=== PATIENT | female | born 1965 | race Caucasian/White ===

== ENCOUNTER 2021-11-01 19:56 | Inpatient (IN) | payer MEDICARE, MEDICAID, SELFPAY ==
--- NOTE | 2021-11-01 | ECG_ITS ---
Test Reason : MED CLEARANCE Blood Pressure : / mmHG Vent. Rate : 064 BPM Atrial Rate : 064 BPM P-R Int : 124 ms QRS Dur : 094 ms QT Int : 416 ms P-R-T Axes : 055 075 058 degrees QTc Int : 429 ms Normal sinus rhythm Normal ECG No previous ECGs available Referred By: Michael Mcdonough Electronically Signed By:Scooter Rossi
--- NOTE | ~2021-11-01 | XR_ITS ---
EXAMINATION: XR CHEST CLINICAL INFORMATION: Wheezing. COMPARISON: None TECHNIQUE: 2 views of the chest were obtained. FINDINGS: Focal dense consolidation in the anterior lung base on lateral view which is likely within the lingula. No pleural effusion. No pulmonary vascular congestion. XR/XR chest 2V IMPRESSION: Focal dense consolidation in the anterior lung base on lateral view which is likely within the lingula
--- NOTE | ~2021-11-01 | CT_ITS ---
EXAMINATION: CT CHEST WITHOUT CONTRAST CLINICAL INFORMATION: Orthostatic hypotension. COMPARISON: Most recent chest radiograph dated 11/01/2021. TECHNIQUE: Multidetector volumetric CT imaging of the chest was done. Axial MIP volume rendering provided. Sagittal and coronal reformatted images were obtained. This CT examination was performed using dose optimization techniques as appropriate, variously including the following: *Automated exposure control *Adjustment of mA and/or kV according to patient size (this includes techniques or standardized protocols for targeted exams where dose is matched to indication/reason for exam; i.e. extremities or head) *Use of iterative reconstruction technique DLP: 185 mGy-cm FINDINGS: SENIOR BUYER PLANNER: Unremarkable. LUNGS: There are scattered, patchy reticulonodular airspace opacities with more dense consolidations within the left lingula and anterior inferior aspect of the right middle lobe. Additional scattered reticulonodular densities are seen within the posteromedial right lower lobe, posterior aspect of the left upper lobe, and central aspect of the left lower lobe. Findings are consistent with multifocal pneumonia and may be related to an infectious or inflammatory process. No large pulmonary mass. The central airways are patent. Left upper lobe 0.3 cm noncalcified nodule (axial image 150/558). Right upper lobe 0.3 cm noncalcified nodule (axial image 152/558). MEDIASTINUM: No cardiomegaly. No pericardial effusion. No thoracic aortic dilatation. No superior mediastinal or hilar lymphadenopathy. Unremarkable thyroid. PLEURA: There is no pleural effusion. No pleural mass or thickening. AXILLA: No lymphadenopathy. UPPER ABDOMEN: Partially visualized simple-appearing right renal cyst. Findings are not clinically significant, and no followup is recommended. Status post cholecystectomy. OSSEOUS STRUCTURES: Unremarkable. CT/CT chest wo con IMPRESSION: 1. Patchy bilateral airspace opacities, most confluent within the right middle lobe and left lingula. Findings are consistent with multifocal pneumonia and can be seen in the setting of an infectious or inflammatory process. 2. Noncalcified 0.37 bilateral upper lobe pulmonary nodules. According to the UPDATED 2017 Fleischner Society recommendations, the advised followup imaging for solid nodules < 6 mm is: LOW RISK PATIENT: No routine followup. HIGH RISK PATIENT: Optional CT at 12 months. 3. No lymphadenopathy. Fleischner guidelines were followed.
--- NOTE | 2021-11-01 20:04 | ED.PSYCH ---
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 Patient says she does not want to live anymore. She states she has been suicidal for the last 3 months. She plans to walk into the river and let it sweep her away. She is deathly afraid of all electronics including cell phones and watches, thinking that her ex-boyfriend is trying to bug her. She has not slept in over 24 hours. She is not eating well and has lost significant amount of weight in the last 1 year. She is back and forth from [place] and does not have any providers in this area. She has been compliant with her anxiety medication but did not take any yet today because she has been the clinic. She reports only drug use is marijuana use and it is infrequent. Denies EtOH. MD complaint: suicidal ideation, feels depressed and anxiety Onset (ago): month(s) (3) Duration: getting worse Relieving factors: none Exacerbating factors: none Context: significant life stressor Associated psychiatric symptoms: depression, suicidal ideation, racing thoughts and delusions Associated symptoms: headache and insomnia Treatments prior to arrival: placed on mental health hold If self harm: admits thoughts of self harm and has plan Details of plan: Walking to the [place] Related Data Home Medications Medication Instructions Recorded Confirmed amlodipine 5 mg tablet 1 tab PO DAILY 11/01/21 11/01/21 aspirin 81 mg chewable tablet 1 tab PO DAILY 11/01/21 11/01/21 baclofen 10 mg tablet 1 tab PO BID PRN 11/01/21 11/01/21 diazepam 5 mg tablet 5 mg PO DAILY 11/01/21 11/01/21 diazepam 5 mg tablet 10 mg PO BEDTIME 11/01/21 11/01/21 docusate sodium 100 mg capsule 1 cap PO BID PRN 11/01/21 11/01/21 duloxetine 60 mg capsule,delayed 1 cap PO DAILY 11/01/21 11/01/21 release fluticasone 250 mcg-salmeterol 50 1 inh PO BID 11/01/21 11/01/21 mcg/dose blistr powdr for inhalation (Advair Diskus) gabapentin 600 mg tablet 1 tab PO BID 11/01/21 11/01/21 pantoprazole 20 mg tablet,delayed 1 tab PO DAILY 11/01/21 11/01/21 release propranolol 20 mg tablet 1 tab PO TID 11/01/21 11/01/21 quetiapine 25 mg tablet 1 tab PO BID 11/01/21 11/01/21 Allergies Allergy/AdvReac Type Severity Reaction Status Date / Time albuterol AdvReac Palpitation Verified 11/01/21 20:16 s Review of Systems Review of Systems: Constitutional: No Fever, No Chills ENT/Mouth: No sore throat, No Rhinorrhea, No Swallowing Difficulty Eyes: No Eye Pain, No Swelling, No Redness Cardiovascular: No Chest Pain, No SOB, No Orthopnea, No Edema Respiratory: + Cough, No Sputum, + Wheezing, No dyspnea Gastrointestinal: No Nausea, No Vomiting, No Diarrhea, No abdominal Pain, No Hematochezia, No Melena Genitourinary: + Dysuria, No Urinary Frequency, No Hematuria, +Dark colored urine Musculoskeletal: No joint pain, No Myalgias Skin: No Skin Lesions, No rash Neuro: + Weakness, No Numbness, No Dizziness, + Headache Psych: + Anxiety/Panic, + Depression, +SI, No HI, No AH, No VH, +delusions, +insomnia Heme/Lymph: No Bruising, No Lymphadenopathy Endocrine: No Polyuria, No Polydipsia PMFSH Social History Social History Advance Directives: No Advance Directives Information Provided: No Physical Exam Vital Signs: Vital Signs: Last Vital Signs Temp 99 F 11/01/21 20:06 Pulse 74 11/01/21 20:06 Resp 19 11/01/21 20:06 BP 115/69 11/01/21 20:06 Pulse Ox 95 11/01/21 20:06 BMI result Body Mass Index 19.5 Appearance: Alert, frail anxious female wrapped in a blanket. Oriented X3. Tearful. Appears older than stated age. Eyes: Pupils equal, round and reactive to light. ENT: Pharynx normal. Neck: Normal inspection. Neck supple. CVS: Normal heart rate and rhythm. Pulses normal. Respiratory: No respiratory distress. Breath sounds with diffuse insp/exp wheezes throughout the right lung. Left lung coarse. Abdomen: Soft and nontender. +BS x4 Skin: Skin warm and dry. Normal skin color. Normal skin turgor. No rashes. Extremities: No lower extremity edema. Neuro/psych: Oriented X 3. No motor deficit. No sensory deficit. Anxious, tremoring at times. Makes eye contact, paranoid, delusional, poor insight and judgment. CN II-XII intact. Course Course Course Narrative: 56-year-old female with history of COPD, stiff person syndrome, PTSD, delusional disorder who presents to the ER for evaluation of worsening depression and suicidal thoughts for the last 3 months. She went to a [facility] clinic today with SI and plan, delusional, anxious, paranoid. She was placed on a Section 12 and inpatient bed search was initiated, she was sent to a gym see for further evaluation, medical clearance and monitoring. She is concerned she has a UTI, will check UA to rule out infection. On examination she has wheezes throughout her right lung, she reports these are chronic and she has no shortness of breath. She has COPD and takes Advair, she reports allergy to albuterol so will hold off on updraft for now. SpO2 95%. Will check CXR and COVID swab. Once medically cleared will require inpatient psychiatric care. Consultations Consultation #1: [facility] Discharge Plan Discharge Clinical Impression: Suicidal ideation, Acute paranoia, Delusional disorder, COPD (chronic obstructive pulmonary disease) Patient Disposition: Still a Patient Prescriptions: No Action quetiapine 25 mg tablet 1 tab PO BID 0RF fluticasone propion-salmeterol [Advair Diskus] 250-50 mcg/dose blister with device 1 inh PO BID 0RF gabapentin 600 mg tablet 1 tab PO BID 0RF amlodipine 5 mg tablet 1 tab PO DAILY 0RF pantoprazole 20 mg tablet,delayed release (DR/EC) 1 tab PO DAILY 0RF baclofen 10 mg tablet 1 tab PO BID PRN (Reason: Muscle Spasm) 0RF docusate sodium 100 mg capsule 1 cap PO BID PRN (Reason: constipation) 0RF aspirin 81 mg tablet,chewable 1 tab PO DAILY 0RF duloxetine 60 mg capsule,delayed release(DR/EC) 1 cap PO DAILY 0RF propranolol 20 mg tablet 1 tab PO TID 0RF diazepam 5 mg tablet 5 mg PO DAILY 0RF diazepam 5 mg tablet 10 mg PO BEDTIME 0RF
[2021-11-01 20:06] VITALS: BP 115/69; PULSE 74; RESP 19; TEMP 37.2; O2SAT 95; BMI 19.5
[2021-11-01] MEDS: LORazepam 1 MG TABLET 2 MG PO (20:43)
[2021-11-01 21:04] LABS: Appearance Urine CLEAR; Color Urine YELLOW; Glucose Urine UA NEG (NEG); Leukocyte Esterase Urine NEG (NEG); Nitrite Urine NEG (NEG); PH 5.5 (5.0-8.0); Specific Gravity - Urine 1.025 (1.005-1.025); UACC Culture Trigger NO; Urine Blood 3+ (NEG); Urine Ketones NEG (NEG); Urine Protein 2+ MG/DL (NEG-TRACE)
[2021-11-01 21:09] LABS: WBC Urine 0 /HPF (0-4)
[2021-11-01 21:10] LABS: Bacteria Urine TRACE /LPF; Squamous Epithelial Cell Urine 1+ /LPF
[2021-11-01 21:17] LABS: Amphetamine Screen Urine Not Detected (Not Detect); Barbiturates, Urine Not Detected (Not Detect); Benzodiazepines Screen Urine POSITIVE (Not Detect); Cannabinoid Screen Urine POSITIVE (Not Detect); Cocaine Screen Urine Not Detected (Not Detect); Fentanyl, urine Not Detected (Not Detect); Opiate Screen Urine Not Detected (Not Detect); Phencyclidine Screen Urine Not Detected (Not Detect)
[2021-11-01 21:17] LABS: COVID-19 Test Negative (Negative)
[2021-11-01] MEDS: diazePAM 5 MG TABLET 10 MG PO (21:33)
[2021-11-01] MEDS: Gabapentin 600 MG TABLET PO (21:33)
[2021-11-01] MEDS: QUEtiapine Fumarate 25 MG TABLET PO (21:33)
[2021-11-01] MEDS: Propranolol HCL 20 MG TABLET PO (21:33)
[2021-11-02] VITALS (10 sets, daily range): BP systolic 72–117; BP diastolic 36–70; PULSE 61–79; RESP 14–18; TEMP 36.6–37.4; O2SAT 94–97
[2021-11-02 00:25] LABS: Basophils Percent Auto 0.2 % (0-2); Eosinophils Absolute Auto 0.1 X10*3/uL (0.0-0.4); Eosinophils Percent Auto 1.4 % (0-4); Hematocrit 31.1 % (37.0-47.0); Hemoglobin 10.2 g/dl (12.0-16.0); Imm Gran Abs Auto 0.04 X10*3/uL (0.00-0.03); Imm Gran Pct Auto 0.5 % (0.0-0.4); Lymphocytes Absolute Auto 1.8 X10*3/uL (1.2-4.9); Lymphocytes Percent Auto 21.4 % (20-40); MANUAL DIFF FLAG NO; Mean Corpuscular HGB Conc 32.8 g/dl (31.0-35.0); Mean Corpuscular Hemoglobin 29.9 pg (27.0-33.0); Mean Corpuscular Volume 91.2 fL (80.0-98.0); Mean Platelet Volume 8.9 fL (9.4-12.3); Monocytes Absolute Auto 0.5 X10*3/uL (0.1-1.2); Monocytes Percent Auto 5.6 % (2-11); Neutrophils Percent Auto 70.9 % (45-73); Platelet Count 323 X10*3/uL (160-400); Red Blood Count 3.41 X10*6/uL (4.20-5.50); Red Cell Distribution Width 11.9 % (11.0-16.0); White Blood Count 8.5 X10*3/uL (4.8-10.8)
[2021-11-02 00:40] LABS: Ethanol < 10 mg/dL
[2021-11-02 00:44] LABS: Alanine Aminotransferase 11 U/L (0-31); Albumin Level 3.6 g/dL (3.5-5.0); Alkaline Phosphatase 108 U/L (39-117); Anion Gap 14 (12-20); Aspartate Amino Transferase 17 U/L (5-31); Bilirubin Direct 0.3 mg/dL (0.0-0.5); Bilirubin Total 0.6 mg/dL (0.0-1.0); Blood Urea Nitrogen 14 mg/dL (9-16); Calcium 9.2 mg/dL (8.4-10.2); Carbon Dioxide 27 mmol/L (22-29); Chloride 103 mmol/L (96-108); Creatinine Clr Calc Pharmacy 68.9; Estimated Glomerular Filt Rate > 60; Glucose Random 111 mg/dL (60-115); Magnesium 2.3 mg/dL (1.6-2.6); Potassium 3.8 mmol/L (3.3-5.1); Sodium 140 mmol/L (135-145); Total Protein 6.1 g/dL (6.5-8.0)
[2021-11-02] MEDS: Omeprazole 20 MG CAPSULE.DR PO (06:14)
--- NOTE | 2021-11-02 06:36 | PC.NURSE ---
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
[2021-11-02] MEDS: QUEtiapine Fumarate 25 MG TABLET PO ×2 (08:45→20:49)
[2021-11-02] MEDS: diazePAM 5 MG TABLET PO (08:45)
[2021-11-02] MEDS: Aspirin 81 MG TAB.CHEW PO (08:47)
[2021-11-02] MEDS: Gabapentin 600 MG TABLET PO ×2 (08:47→20:49)
[2021-11-02] MEDS: amLODIPine Besylate 5 MG TABLET PO (08:47)
[2021-11-02] MEDS: Propranolol HCL 20 MG TABLET PO (08:47)
[2021-11-02] MEDS: DULoxetine HCl 60 MG CAPSULE.DR PO (08:47)
[2021-11-02] MEDS: Fluticasone/Vilanterol 100/25 BLST.W.DEV 1 PUFF INHALE ×2 (09:32→20:35)
--- NOTE | 2021-11-02 14:43 | PC.NURSE ---
pt requested/given 1 cup of water and farzana-shannan munson (mlp) aware of vss 79/[id number]. pt isn asymptomatic at this time.
[2021-11-02 17:08] LABS: Basophils Percent Auto 0.3 % (0-2); Eosinophils Absolute Auto 0.2 X10*3/uL (0.0-0.4); Eosinophils Percent Auto 2.7 % (0-4); Hematocrit 31.7 % (37.0-47.0); Hemoglobin 10.4 g/dl (12.0-16.0); Imm Gran Abs Auto 0.02 X10*3/uL (0.00-0.03); Imm Gran Pct Auto 0.3 % (0.0-0.4); Lymphocytes Absolute Auto 1.5 X10*3/uL (1.2-4.9); Lymphocytes Percent Auto 24.6 % (20-40); MANUAL DIFF FLAG NO; Mean Corpuscular HGB Conc 32.8 g/dl (31.0-35.0); Mean Corpuscular Hemoglobin 29.9 pg (27.0-33.0); Mean Corpuscular Volume 91.1 fL (80.0-98.0); Monocytes Absolute Auto 0.5 X10*3/uL (0.1-1.2); Monocytes Percent Auto 7.8 % (2-11); Neutrophils Percent Auto 64.3 % (45-73); Platelet Count 335 X10*3/uL (160-400); Red Blood Count 3.48 X10*6/uL (4.20-5.50); Red Cell Distribution Width 11.9 % (11.0-16.0); White Blood Count 6.3 X10*3/uL (4.8-10.8)
[2021-11-02] MEDS: 0.9 % Sodium Chloride 1,496.85 ML 1496.85 ML IV (17:09)
[2021-11-02 17:19] LABS: Lactic Acid 0.7 mmol/L (0.5-2.0)
[2021-11-02] MEDS: cefTRIAXone sodium 1 GM in 0.9 % Sodium Chloride 50 ML IV (17:27)
--- NOTE | 2021-11-02 17:28 | PC.NURSE ---
PT WAS BROUGHT FROM THE POD FOR IV INFUSION AND ANTIBIOTICS AFTER NOTING THE PATIENT TO BE HYPOTENSIVE. SHE IS AWAKE AND ALERT AND AMBULATORY IN THE MAIN ED. NO ACUTE RESP DIFFICULTY NOTED. SHE HAS A PNEUMONIA DX
--- NOTE | 2021-11-02 19:48 | PC.NURSE ---
Pt heard yelling out to staff at nurses station requesting her night time medication and asking where her nurse Dilip was. microeconomics professor made the pt aware that her nurse has changed and is now Bria who was assisting another patient and would be with her shortly. This RN reviewed the pt's medications due at this time and went to bed to ensure these were the medications the pt was looking to receive. Pt become visibly upset and inquired about her other medications such as her Ibruprofen 800mg, Diazepam 10mg at HS, Seroquel BID rather than once a day. This RN attempted to provide education, pt quickly changing between apologetic and frustrated. RN discuss pt's concerns with covering PA who reports pt's diazepam, baclofen and BP meds were discontinued due to pt's BP's and not wanting her to become hypotensive. Pt was transfered to Pod via wheelchair, she went willingly after education and reassurance from staff.
--- NOTE | 2021-11-02 20:36 | PC.NURSE ---
Patient just got transferred back from main ED, patient was updated about her night time medication change not happy to hear stated she has been on those medication at home without any issues, Ranjit Angel one puff scheduled at 1999 was not administered documentation stating medication not available, this assembly instructions writer was unable to to administer the medication because documentation can not be undone at thsi time, pharmacy called advised to call section supervisor, called section supervisor to undo the documentation, section supervisor was unable to undo the documentation, instructed this assembly instructions writer to administer the schedule dose, administered at 2034.
[2021-11-02] MEDS: Ibuprofen 600 MG TABLET PO (21:57)
[2021-11-02] MEDS: diazePAM 2 MG TABLET 5 MG PO (21:57)
[2021-11-03] VITALS (12 sets, daily range): BP systolic 75–123; BP diastolic 47–97; PULSE 52–86; RESP 12–19; TEMP 36.2–37.1; O2SAT 96–100
[2021-11-03] MEDS: Omeprazole 20 MG CAPSULE.DR PO (07:09)
--- NOTE | 2021-11-03 07:15 | PC.NURSE ---
Patient slept through the night, no distress observed/reported, disposition per [facility] is section 12 inpatient bed search, medication compliant, behavior appropriate, BP this morning was 96/65, VSS, will continue to monitor.
[2021-11-03] MEDS: diazePAM 5 MG TABLET PO ×2 (07:51→21:01)
[2021-11-03] MEDS: QUEtiapine Fumarate 25 MG TABLET PO ×2 (07:51→20:17)
[2021-11-03] MEDS: Aspirin 81 MG TAB.CHEW PO (07:51)
[2021-11-03] MEDS: Gabapentin 600 MG TABLET PO ×2 (07:51→20:18)
[2021-11-03] MEDS: Fluticasone/Vilanterol 100/25 BLST.W.DEV 1 PUFF INHALE ×2 (07:52→23:08)
[2021-11-03] MEDS: DULoxetine HCl 60 MG CAPSULE.DR PO (07:52)
--- NOTE | 2021-11-03 09:06 | ECG_ITS ---
Test Reason : HYPOTENSION Blood Pressure : / mmHG Vent. Rate : 072 BPM Atrial Rate : 072 BPM P-R Int : 120 ms QRS Dur : 098 ms QT Int : 410 ms P-R-T Axes : 080 082 061 degrees QTc Int : 448 ms Normal sinus rhythm Normal ECG When compared with ECG of 01-NOV-2021 23:56, No significant change was found Referred By: Sailaja Vivar Electronically Signed By:Scooter Rossi
--- NOTE | 2021-11-03 09:22 | PC.NURSE ---
pt sent to main ed due to blood pressures. for medical treatment
[2021-11-03 09:43] LABS: MANUAL DIFF FLAG NO
[2021-11-03] MEDS: 0.9 % Sodium Chloride 1,496.85 ML 1496.85 ML IV (09:43)
--- NOTE | 2021-11-03 09:50 | PC.NURSE ---
Per Sailaja PA: SBP goal >90.
[2021-11-03 10:03] LABS: COVID-19 Test Negative (Negative); IDNOW Serial# 16C4AD1C
[2021-11-03 10:05] LABS: Basophils Percent Auto 0.7 % (0-2); Eosinophils Absolute Auto 0.2 X10*3/uL (0.0-0.4); Eosinophils Percent Auto 3.5 % (0-4); Hematocrit 30.1 % (37.0-47.0); Hemoglobin 9.9 g/dl (12.0-16.0); Imm Gran Abs Auto 0.02 X10*3/uL (0.00-0.03); Imm Gran Pct Auto 0.4 % (0.0-0.4); Lymphocytes Absolute Auto 1.3 X10*3/uL (1.2-4.9); Lymphocytes Percent Auto 29.4 % (20-40); Mean Corpuscular HGB Conc 32.9 g/dl (31.0-35.0); Mean Corpuscular Hemoglobin 29.9 pg (27.0-33.0); Mean Corpuscular Volume 90.9 fL (80.0-98.0); Mean Platelet Volume 9.2 fL (9.4-12.3); Monocytes Absolute Auto 0.4 X10*3/uL (0.1-1.2); Monocytes Percent Auto 8.4 % (2-11); Neutrophils Absolute Auto 2.6 x10*3/uL (2.0-8.3); Neutrophils Percent Auto 57.6 % (45-73); Platelet Count 295 X10*3/uL (160-400); Red Blood Count 3.31 X10*6/uL (4.20-5.50); Red Cell Distribution Width 11.9 % (11.0-16.0); White Blood Count 4.5 X10*3/uL (4.8-10.8)
[2021-11-03 10:22] LABS: Alanine Aminotransferase 7 U/L (0-31); Albumin Level 3.2 g/dL (3.5-5.0); Alkaline Phosphatase 96 U/L (39-117); Anion Gap 11 (12-20); Aspartate Amino Transferase 11 U/L (5-31); Bilirubin Total 0.4 mg/dL (0.0-1.0); Blood Urea Nitrogen 11 mg/dL (9-16); Calcium 8.8 mg/dL (8.4-10.2); Carbon Dioxide 28 mmol/L (22-29); Chloride 106 mmol/L (96-108); Creatinine Clr Calc Pharmacy 76.3; Estimated Glomerular Filt Rate > 60; Glucose Random 89 mg/dL (60-115); Magnesium 2.1 mg/dL (1.6-2.6); Potassium 3.8 mmol/L (3.3-5.1); Sodium 141 mmol/L (135-145); Total Protein 5.4 g/dL (6.5-8.0)
[2021-11-03 10:23] LABS: Troponin-I High Sensitivity < 3.5 ng/L (<3.5-17.0)
[2021-11-03] MEDS: cefTRIAXone sodium 1 GM in 0.9 % Sodium Chloride 50 ML IV (12:00)
--- NOTE | 2021-11-03 12:04 | PHA.MEDREC ---
Pharmacy Consult ? Medication Reconciliation Pharmacy has reviewed the medication reconciliation completed by Huseyin.
--- NOTE | 2021-11-03 12:16 | PC.NURSE ---
Sailaja MACHADO notified of decreasing BP 82/54, Plan at this time is to start IVF NS 150m ml/hr
--- NOTE | 2021-11-03 12:24 | PM.IMHP ---
History of Present Illness Date of Service: 11/03/21 Chief Complaint: hypotension 56-year-old woman presented to the ER with suicidal ideation and severe depression. She was transferred to the [facility] pot in the ER and subsequently found to be hypotensive and orthostatic. She was then transferred back to the main ER and blood pressures systolic Jerica had been in the low 70s at 1 point. She was treated with IV fluids good response but blood pressures have remained low therefore was decided that patient be admitted to medical service. She reports that her blood pressure had been low for about 2 weeks and she stopped her amlodipine. She reported normally her blood pressure was quite high. She denied chest pain, shortness breath, nausea, vomiting, diarrhea. She did self report a fever at home. She denied any new medication. In the ER labs did know his mild anemia no kidney dysfunction, no fever. She was given 3 L of IV . Chest CT did show patchy bilateral airspace opacities consistent with multifocal pneumonia, she was started on Rocephin and doxycycline. She will be admitted for further management and treatment of community-acquired pneumonia and hypotension. Review of Systems Review of Systems: Denies any recent fever chills or decrease in appetite respiratory denies any shortness of breath coverage production cardiovascular denies chest pain gastrointestinal denies any dysphagia abdominal pain nausea vomiting or diarrhea genitourinary denies any dysuria frequency or hematuria musculoskeletal denies any joint pain or swelling neuropsych denies any weakness or seizures all other systems reviewed are negative [facility] Medical History (Updated 11/03/21 @ 16:05 by Indigo Rothman NP) Bowel perforation Depression Hypertension Lupus Stiff-man syndrome Family History (Updated 11/03/21 @ 16:07 by Indigo Rothman NP) Paternal Grandmother TB (pulmonary tuberculosis) Father FH: HTN (hypertension) Surgical History (Updated 11/03/21 @ 16:05 by Indigo Rothman NP) History of cholecystectomy History of mandibular surgery Social History (Updated 11/03/21 @ 16:06 by Indigo Rothman NP) Household Members: Family Alcohol intake: never Cigarette Packs Per Day: 5 Smoked in Last 30 Days: No Use of substances other than those prescribed or required for medical reasons: Unknown Substance Use Type: Marijuana Advance Directives: No Advance Directives Information Provided: No Patient : No Meds Allergies Allergy/AdvReac Type Severity Reaction Status Date / Time albuterol AdvReac Palpitation Verified 11/01/21 20:16 s Active Medications: Current Medications Aspirin (Aspirin 81 Mg Tab.Chew) 81 mg PO DAILY [facility] Last Admin: 11/03/21 07:51 Dose: 81 mg Documented by: Diazepam (Diazepam 5 Mg Tablet) 5 mg PO DAILY [facility] Last Admin: 11/03/21 07:51 Dose: 5 mg Documented by: Docusate Sodium (Docusate Sodium 100 Mg Capsule) 100 mg PO BID PRN PRN Reason: constipation Doxycycline Hyclate (Doxycycline Hyclate 100 Mg Tablet) 100 mg PO BID [facility] Stop: 11/06/21 21:01 Last Admin: 11/03/21 07:51 Dose: 100 mg Documented by: Duloxetine HCl (Duloxetine Hcl 60 Mg Capsule.) 60 mg PO DAILY [facility] Last Admin: 11/03/21 07:52 Dose: 60 mg Documented by: Fluticasone/Vilanterol (Fluticasone/Vilanterol 100/25 Blst.W.Dev) 1 puff INHALE RBID [facility] Last Admin: 11/03/21 07:52 Dose: 1 puff Documented by: Gabapentin (Gabapentin 600 Mg Tablet) 600 mg PO BID [facility] Last Admin: 11/03/21 07:51 Dose: 600 mg Documented by: Ceftriaxone Sodium 1 gm/ (Sodium Chloride) 50 mls @ 100 mls/hr IV Q24H [facility] Last Admin: 11/03/21 12:00 Dose: 100 mls/hr Documented by: Sodium Chloride (Ns) 1,000 mls @ 200 mls/hr IVCONT .Q5H [facility] Stop: 11/03/21 17:29 Omeprazole (Omeprazole 20 Mg Capsule.) 20 mg PO DAILY@0630 [facility] Last Admin: 11/03/21 07:09 Dose: 20 mg Documented by: Pharmacy Consult (Consult Rx Perform Med Rec) 1 each MISCELLANE ONCE PRN PRN Reason: Consult order Quetiapine Fumarate (Quetiapine Fumarate 25 Mg Tablet) 25 mg PO BID [facility] Last Admin: 11/03/21 07:51 Dose: 25 mg Documented by: Sodium Chloride (0.9 % Sodium Chloride Flush 3 Ml Syringe) 3 ml IVFLUSH QSHIFT [facility] Home Medications Medication Instructions Recorded Confirmed Last Taken Type amlodipine 5 mg tablet 1 tab PO DAILY 11/01/21 11/01/21 Unknown History aspirin 81 mg chewable tablet 1 tab PO DAILY 11/01/21 11/01/21 Unknown History baclofen 10 mg tablet 1 tab PO BID PRN 11/01/21 11/01/21 Unknown History diazepam 5 mg tablet 5 mg PO DAILY 11/01/21 11/01/21 Unknown History diazepam 5 mg tablet 10 mg PO BEDTIME 11/01/21 11/01/21 Unknown History docusate sodium 100 mg capsule 1 cap PO BID PRN 11/01/21 11/01/21 Unknown History duloxetine 60 mg capsule,delayed 1 cap PO DAILY 11/01/21 11/01/21 Unknown History release fluticasone 250 mcg-salmeterol 50 1 inh PO BID 11/01/21 11/01/21 Unknown History mcg/dose blistr powdr for inhalation (Advair Diskus) gabapentin 600 mg tablet 1 tab PO BID 11/01/21 11/01/21 Unknown History pantoprazole 20 mg tablet,delayed 1 tab PO DAILY 11/01/21 11/01/21 Unknown History release propranolol 20 mg tablet 1 tab PO TID 11/01/21 11/01/21 Unknown History quetiapine 25 mg tablet 1 tab PO BID 11/01/21 11/01/21 Unknown History ibuprofen 800 mg tablet 1 tab PO Q8H PRN 11/02/21 11/02/21 Unknown History Physical Exam Vital Signs and Narrative: Vital Signs: Last Vital Signs Temp 97.2 F 11/03/21 08:07 Pulse 57 11/03/21 11:58 Resp 19 11/03/21 11:58 BP 89/58 L 11/03/21 11:58 Pulse Ox 96 11/03/21 11:58 BMI result Body Mass Index 19.5 Appearing in no acute distress , thin and frail appearing head is normocephalic atraumatic eyes pupils are PERRLA sclera is anicteric mouth throat mucous membranes are intact and moist neck is supple no lymphadenopathy, no JVD noted lung sounds are clear to auscultation heart regular rate rhythm, clear S1, S2 positive bowel sounds, abdomen is soft, nontender neuro patient is alert x3, no focal deficits Results Labs CBC and Chem 7: 11/03/21 09:38 11/03/21 09:38 Labs: Laboratory Results - last 24 hr 11/02/21 11/02/21 11/03/21 17:01 17:01 09:33 MCV 91.1 MCH 29.9 MCHC 32.8 RDW 11.9 Plt Count 335 MPV 9.0 L Immature Gran % (Auto) 0.3 Neut % (Auto) 64.3 Lymph % (Auto) 24.6 [place] % (Auto) 7.8 Eos % (Auto) 2.7 Baso % (Auto) 0.3 Lymph # (Auto) 1.5 [place] # (Auto) 0.5 Eos # (Auto) 0.2 Baso # (Auto) 0.0 Abs Immat Gran (auto) 0.02 Absolute Neuts (auto) 4.0 Absolute Nucleated RBC 0.000 Nucleated RBC % (auto) 0.0 Anion Gap Estim Creat Clear Calc Estimated GFR Random Glucose Lactic Acid 0.7 Calcium Magnesium Total Bilirubin AST ALT Alkaline Phosphatase Troponin I High Sens Total Protein Albumin COVID-19 (DAVID) Negative COVID-19 Clin Com See Note 11/03/21 11/03/21 11/03/21 09:38 09:38 09:38 MCV 90.9 MCH 29.9 MCHC 32.9 RDW 11.9 Plt Count 295 MPV 9.2 L Immature Gran % (Auto) 0.4 Neut % (Auto) 57.6 Lymph % (Auto) 29.4 [place] % (Auto) 8.4 Eos % (Auto) 3.5 Baso % (Auto) 0.7 Lymph # (Auto) 1.3 [place] # (Auto) 0.4 Eos # (Auto) 0.2 Baso # (Auto) 0.0 Abs Immat Gran (auto) 0.02 Absolute Neuts (auto) 2.6 Absolute Nucleated RBC 0.000 Nucleated RBC % (auto) 0.0 Anion Gap 11 L Estim Creat Clear Calc 76.3 Estimated GFR > 60 Random Glucose 89 Lactic Acid Calcium 8.8 Magnesium 2.1 Total Bilirubin 0.4 AST 11 ALT 7 Alkaline Phosphatase 96 Troponin I High Sens < 3.5 Total Protein 5.4 L Albumin 3.2 L COVID-19 (DAVID) COVID-19 Clin Com Imaging Radiologist's Impressions: Impressions Chest CT 11/03/21 09:37 IMPRESSION: 1. Patchy bilateral airspace opacities, most confluent within the right middle lobe and left lingula. Findings are consistent with multifocal pneumonia and can be seen in the setting of an infectious or inflammatory process. 2. Noncalcified 0.37 bilateral upper lobe pulmonary nodules. According to the UPDATED 2017 Fleischner Society recommendations, the advised followup imaging for solid nodules < 6 mm is: LOW RISK PATIENT: No routine followup. HIGH RISK PATIENT: Optional CT at 12 months. 3. No lymphadenopathy. Fleischner guidelines were followed. Assessment and Plan (1) Suicidal ideation: Status: Acute Plan 56 year old women admitted with Hypotension with secondary suicide ideation Hypotension. Unknown etiology at this time, had stopped antihypertensive about a week ago. Did report some dizziness at home +orthostatics Stop antihypertensives IV fluids Follow blood pressures closely Healthcare associated pneumonia No sepsis Continue Rocephin and doxycycline Follow blood cultures No hypoxia noted History of stiff man syndrome On baclofen, gabapentin Mental health SI Section 12 sitter continue home medications BH in consultation when medically cleared Attending Dr. Lord Full code DVT prophylaxis with Lovenox Quality Stroke Does the patient have a stroke diagnosis?: No VTE Prior VTE?: No VTE Risk Level:: Medical - moderate - high VTE Device Contraindication: Treatment Not Indicated VTE Drug Contraindication: N/A - Med Ordered
--- NOTE | 2021-11-03 12:24 | MHC.CARE ---
This pt has been accepted to [facility].? She has been experiencing dips in BP on 11/02 & 11/03 which necessitated her being moved into the ED from the pod, thus holding up admission to [facility].? Dr. Mo reviewed her chart and determined that she is too medically compromised to go to the unit. [facility] Bedsearch team was called, no answer, under staffed today per Jessica this AM.? Message left requesting a return call.?? Dr Mo requests we find a more suitable patient.
--- NOTE | 2021-11-03 12:26 | MHC.CARE ---
[facility] Bedsearch team called back, they were advised of the issues with pt and being unable to take her on the unit at this time.
--- NOTE | 2021-11-03 12:27 | PC.NURSE ---
Indigo JACKSON notified of BP. Plan to Hang 1 L NS wide open then start, maintenance IVF at 200/hr
[2021-11-03] MEDS: 0.9 % Sodium Chloride 1,000 ML 200 ML IVCONT (13:13)
[2021-11-03 17:29] LABS: Glucose, Whole Blood 104 mg/dL (60-115)
--- NOTE | 2021-11-03 20:00 | PC.NURSE ---
Pt resting in stretcher with close obs at bedside for safety. Pt denies any complalnts at this time and will continue to monitor pt.
[2021-11-04] MEDS: Ibuprofen 400 MG TABLET PO (01:09)
[2021-11-04] MEDS: diazePAM 5 MG TABLET PO ×2 (01:50→08:53)
--- NOTE | 2021-11-04 02:45 | PC.NURSE ---
pt yelling about not getting Motrin and is demanding to speak with hospitalist. MD in room conversing with pt. Motrin ordered for pain. Now pt is demanding Valium and is not getting enough Valium. Hospitalist in room and ordered a dose of Valium. Pt denies any complaints at this time.
[2021-11-04 04:12] VITALS: PULSE 57; RESP 19; O2SAT 98
--- NOTE | 2021-11-04 07:59 | MHC.CARE ---
Please consult CARE Team when Pt is medically cleared. Pt was initially found IPLOC by Nic Rockwell. Pt will need re-evaluation prior to discharge.
[2021-11-04] MEDS: 0.9 % Sodium Chloride Flush 3 ML SYRINGE IVFLUSH (08:53)
[2021-11-04] MEDS: Omeprazole 20 MG CAPSULE.DR PO (08:53)
[2021-11-04] MEDS: DULoxetine HCl 60 MG CAPSULE.DR PO (08:53)
[2021-11-04] MEDS: Gabapentin 600 MG TABLET PO ×2 (08:53→21:32)
[2021-11-04] MEDS: QUEtiapine Fumarate 25 MG TABLET PO ×2 (08:53→21:32)
[2021-11-04] MEDS: Aspirin 81 MG TAB.CHEW PO (08:53)
--- NOTE | 2021-11-04 09:58 | P.PNIM_ITS ---
Subjective Subjective Date of Service: 11/04/21 Review of Systems Follow up hypotension, CAP Still feeling tight to chest when taking deep breaths coughing Physical Exam Vital Signs: Vital Signs: Last Vital Signs Temp 98.7 F 11/03/21 22:52 Pulse 57 11/04/21 04:12 Resp 19 11/04/21 04:12 BP 123/74 11/03/21 22:52 Pulse Ox 98 11/04/21 04:12 BMI result Body Mass Index 19.5 Appearing in no acute distress lung sounds are clear to auscultation heart regular rate rhythm, clear S1, S2 positive bowel sounds, abdomen is soft, nontender neuro patient is alert x3, no focal deficits Objective Data Active Medications Aspirin (Aspirin 81 Mg Tab.Chew) 81 mg PO DAILY [facility] Last Admin: 11/04/21 08:53 Dose: 81 mg Documented by: ARNOLDO Diazepam (Diazepam 5 Mg Tablet) 5 mg PO DAILY [facility] Last Admin: 11/04/21 08:53 Dose: 5 mg Documented by: ARNOLDO Docusate Sodium (Docusate Sodium 100 Mg Capsule) 100 mg PO BID PRN PRN Reason: constipation Doxycycline Hyclate (Doxycycline Hyclate 100 Mg Tablet) 100 mg PO BID [facility] Stop: 11/06/21 21:01 Last Admin: 11/04/21 08:53 Dose: 100 mg Documented by: ARNOLDO Duloxetine HCl (Duloxetine Hcl 60 Mg Capsule.) 60 mg PO DAILY [facility] Last Admin: 11/04/21 08:53 Dose: 60 mg Documented by: ARNOLDO Fluticasone/Vilanterol (Fluticasone/Vilanterol 100/25 Blst.W.Dev) 1 puff INHALE RBID [facility] Last Admin: 11/04/21 08:19 Dose: Not Given Documented by: HEMAL Non-Admin Reason: Med Not Available Gabapentin (Gabapentin 600 Mg Tablet) 600 mg PO BID [facility] Last Admin: 11/04/21 08:53 Dose: 600 mg Documented by: ARNOLDO Ceftriaxone Sodium 1 gm/ (Sodium Chloride) 50 mls @ 100 mls/hr IV Q24H [facility] Last Infusion: 11/03/21 12:29 Dose: 0 mls/hr Documented by: ROLLY Omeprazole (Omeprazole 20 Mg Capsule.) 20 mg PO DAILY@0630 [facility] Last Admin: 11/04/21 08:53 Dose: 20 mg Documented by: ARNOLDO Pharmacy Consult (Consult Rx Perform Med Rec) 1 each MISCELLANE ONCE PRN PRN Reason: Consult order Quetiapine Fumarate (Quetiapine Fumarate 25 Mg Tablet) 25 mg PO BID [facility] Last Admin: 11/04/21 08:53 Dose: 25 mg Documented by: ARNOLDO Sodium Chloride (0.9 % Sodium Chloride Flush 3 Ml Syringe) 3 ml IVFLUSH QSHIFT [facility] Last Admin: 11/04/21 08:53 Dose: 3 ml Documented by: ARNOLDO Labs CBC & Chem 7: 11/03/21 09:38 11/03/21 09:38 Labs: Laboratory Results - last 24 hr 11/03/21 11/03/21 11/03/21 09:33 09:38 09:38 MCV 90.9 MCH 29.9 MCHC 32.9 RDW 11.9 Plt Count 295 MPV 9.2 L Immature Gran % (Auto) 0.4 Neut % (Auto) 57.6 Lymph % (Auto) 29.4 [place] % (Auto) 8.4 Eos % (Auto) 3.5 Baso % (Auto) 0.7 Lymph # (Auto) 1.3 [place] # (Auto) 0.4 Eos # (Auto) 0.2 Baso # (Auto) 0.0 Abs Immat Gran (auto) 0.02 Absolute Neuts (auto) 2.6 Absolute Nucleated RBC 0.000 Nucleated RBC % (auto) 0.0 Anion Gap 11 L Estim Creat Clear Calc 76.3 Estimated GFR > 60 POC Glucose Random Glucose 89 Calcium 8.8 Magnesium 2.1 Total Bilirubin 0.4 AST 11 ALT 7 Alkaline Phosphatase 96 Troponin I High Sens Total Protein 5.4 L Albumin 3.2 L COVID-19 (DAVID) Negative COVID-19 Clin Com See Note 11/03/21 11/03/21 09:38 17:23 MCV MCH MCHC RDW Plt Count MPV Immature Gran % (Auto) Neut % (Auto) Lymph % (Auto) [place] % (Auto) Eos % (Auto) Baso % (Auto) Lymph # (Auto) [place] # (Auto) Eos # (Auto) Baso # (Auto) Abs Immat Gran (auto) Absolute Neuts (auto) Absolute Nucleated RBC Nucleated RBC % (auto) Anion Gap Estim Creat Clear Calc Estimated GFR POC Glucose 104 Random Glucose Calcium Magnesium Total Bilirubin AST ALT Alkaline Phosphatase Troponin I High Sens < 3.5 Total Protein Albumin COVID-19 (DAVID) COVID-19 Clin Com Microbiology Microbiology Results: Microbiology 11/02/21 17:16 Blood Culture - Preliminary Blood - Venous No growth after 24 hours. 11/02/21 17:01 Blood Culture - Preliminary Blood - Venous No growth after 24 hours. Assessment and Plan (1) Pneumonia: Status: Acute Plan 56 year old women admitted with Hypotension? with secondary suicide ideation Hypotension.? Unknown etiology at this time, had stopped antihypertensive about a week ago. 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 Section 12 sitter? continue home medications BH in consultation when medically cleared Attending Dr. Flores Full code DVT prophylaxis with Lovenox Quality Stroke Does the patient have a stroke diagnosis?: No VTE Prior VTE?: No VTE Risk Level:: Medical - moderate - high VTE Device Contraindication: Treatment Not Indicated VTE Drug Contraindication: N/A - Med Ordered
--- NOTE | 2021-11-04 10:16 | MHC.CM.PN ---
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 PT DENIES USE OF DME HOWEVER REPORTS HER SON IS HER F[employer] W/HIS GF ASSISTING W/PERSONAL CARE, PT VERIFIES PCP FAUSTINO MERLOS AND PFIZER 09/29/20 AND 10/25/20, PT EDUCATED ON HCP'S HOWEVER REPORTS SHE IS PLANNING ON DOING ONE W/HER FATHER AT A [employer]PERATOR OFFICE. D/C PLAN: DISPO PENDING CARE TEAM/[facility] CRISIS
[2021-11-04] MEDS: cefTRIAXone sodium 1 GM in 0.9 % Sodium Chloride 50 ML IV (13:50)
[2021-11-04 16:59] VITALS: BP 107/67
--- NOTE | 2021-11-04 17:02 | PC.NURSE ---
report given to vamshi sigala
[2021-11-04 17:32] VITALS: BP 123/59; PULSE 65; RESP 18; TEMP 36.7; O2SAT 99
[2021-11-04 19:19] VITALS: BP 97/58; PULSE 65; RESP 18; TEMP 37; O2SAT 99
[2021-11-04 23:27] VITALS: BP 75/39; PULSE 81; RESP 18; TEMP 37.1; O2SAT 98
[2021-11-05] VITALS (8 sets, daily range): BP systolic 84–114; BP diastolic 45–65; PULSE 52–66; RESP 14–20; TEMP 35.8–36.7; O2SAT 94–99
[2021-11-05] MEDS: Ibuprofen 800 MG TABLET PO (02:39)
[2021-11-05] MEDS: DULoxetine HCl 60 MG CAPSULE.DR PO (08:58)
[2021-11-05] MEDS: Gabapentin 600 MG TABLET PO ×2 (08:58→20:18)
[2021-11-05] MEDS: Aspirin 81 MG TAB.CHEW PO (08:59)
[2021-11-05] MEDS: diazePAM 5 MG TABLET PO (08:59)
[2021-11-05] MEDS: QUEtiapine Fumarate 25 MG TABLET PO ×2 (08:59→20:18)
[2021-11-05] MEDS: Fluticasone/Vilanterol 100/25 BLST.W.DEV 1 PUFF INHALE ×2 (09:08→20:12)
--- NOTE | 2021-11-05 11:04 | P.PNIM_ITS ---
Subjective Subjective Date of Service: 11/05/21 Review of Systems Follow up hypotension, CAP breathing is better some dizziness with ambulation Physical Exam Vital Signs: Vital Signs: Last Vital Signs Temp 98.0 F 11/05/21 07:30 Pulse 54 11/05/21 09:09 Resp 20 11/05/21 09:09 BP 95/54 L 11/05/21 07:30 Pulse Ox 99 11/05/21 07:30 BMI result Body Mass Index 19.5 Appearing in no acute distress, thin and frail lung sounds are clear to auscultation heart regular rate rhythm, clear S1, S2 positive bowel sounds, abdomen is soft, nontender neuro patient is alert x3, no focal deficits Objective Data Active Medications Aspirin (Aspirin 81 Mg Tab.Chew) 81 mg PO DAILY [facility] Last Admin: 11/05/21 08:59 Dose: 81 mg Documented by: BRYCE-TOMAS Diazepam (Diazepam 5 Mg Tablet) 5 mg PO DAILY [facility] Last Admin: 11/05/21 08:59 Dose: 5 mg Documented by: BRYCE-TOMAS Docusate Sodium (Docusate Sodium 100 Mg Capsule) 100 mg PO BID PRN PRN Reason: constipation Doxycycline Hyclate (Doxycycline Hyclate 100 Mg Tablet) 100 mg PO BID [facility] Stop: 11/06/21 21:01 Last Admin: 11/05/21 08:59 Dose: 100 mg Documented by: BRYCE-TOMAS Duloxetine HCl (Duloxetine Hcl 60 Mg Capsule.Dr) 60 mg PO DAILY [facility] Last Admin: 11/05/21 08:58 Dose: 60 mg Documented by: BRYCE-TOMAS Fluticasone/Vilanterol (Fluticasone/Vilanterol 100/25 Blst.W.Dev) 1 puff INHALE RBID [facility] Last Admin: 11/05/21 09:08 Dose: 1 puff Documented by: HEMAL Gabapentin (Gabapentin 600 Mg Tablet) 600 mg PO BID [facility] Last Admin: 11/05/21 08:58 Dose: 600 mg Documented by: HILARY Ceftriaxone Sodium 1 gm/ (Sodium Chloride) 50 mls @ 100 mls/hr IV Q24H [facility] Last Infusion: 11/04/21 17:52 Dose: 0 mls/hr Documented by: BRIAN Sodium Chloride (Ns) 1,000 mls @ 100 mls/hr IVCONT .Q10H [facility] Midodrine (Midodrine Hcl 5 Mg Tablet) 5 mg PO TID [facility] Omeprazole (Omeprazole 20 Mg Rahul.) 20 mg PO DAILY@0630 [facility] Last Admin: 11/05/21 06:45 Dose: Not Given Documented by: KIM Non-Admin Reason: Administered by Alternate Route Pharmacy Consult (Consult Rx Perform Med Rec) 1 each MISCELLANE ONCE PRN PRN Reason: Consult order Quetiapine Fumarate (Quetiapine Fumarate 25 Mg Tablet) 25 mg PO BID [facility] Last Admin: 11/05/21 08:59 Dose: 25 mg Documented by: ETHANSOFARASH Sodium Chloride (0.9 % Sodium Chloride Flush 3 Ml Syringe) 3 ml IVFLUSH QSHIFT [facility] Last Admin: 11/05/21 08:59 Dose: Not Given Documented by: HILARY Non-Admin Reason: assessed Labs CBC & Chem 7: 11/03/21 09:38 11/03/21 09:38 Microbiology Microbiology Results: Microbiology 11/02/21 17:16 Blood Culture - Preliminary Blood - Venous No growth after 48 hours. 11/02/21 17:01 Blood Culture - Preliminary Blood - Venous No growth after 48 hours. Assessment and Plan (1) Pneumonia: Status: Acute Plan 56 year old women admitted with Hypotension? with secondary suicide ideation Hypotension.? Unknown etiology at this time, had stopped antihypertensive about a week ago. 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 Section 12 sitter? continue home medications BH in consultation when medically cleared Attending Dr. Kelley Full code DVT prophylaxis with Lovenox Continued hospitalization for treatment of orthostatic hypotension with continued dizziness requiring IV fluids and monitoring midodrine. Quality Stroke Does the patient have a stroke diagnosis?: No VTE Prior VTE?: No VTE Risk Level:: Medical - moderate - high VTE Device Contraindication: Treatment Not Indicated VTE Drug Contraindication: N/A - Med Ordered
[2021-11-05] MEDS: 0.9 % Sodium Chloride 1,000 ML 100 ML IVCONT ×2 (11:20→22:05)
[2021-11-05] MEDS: Midodrine HCl 5 MG TABLET PO ×3 (11:20→20:18)
[2021-11-05] MEDS: cefTRIAXone sodium 1 GM in 0.9 % Sodium Chloride 50 ML IV (13:19)
--- NOTE | 2021-11-05 13:27 | PC.NURSE ---
sitter at bedside. pt stated she has no SI thoughts or plans and stated she did not mean what she said before, she was emotional. mdi nformed of pt's low BP. meds administered as ordered. pt refused orthos at this time. safety and fall precautions maintained. pt repositioning self in bed.
--- NOTE | 2021-11-05 13:32 | MHC.CLN ---
NUTRITION PATIENT REPORTS 45# WEIGHT LOSS X 1.5 YEARS AND THAT WEIGHT LOSS HAS OCCURRED SLOWLY. PATIENT SUSPECTS WEIGHT LOSS DUE TO HIGH METABOLIC NEEDS WITH STIFF-MAN SYNDROME. TAKES ENSURE PLUS AT HOME AND WOULD LIKE SUPPLEMENT HERE. ORDERING ENSURE TID TO PROVIDE ADDITIONAL 1050 KCALS, 60 G PROTEIN. LIKES STRAWBERRY FLAVOR, COLD. DINING SERVICES AWARE. EATING WELL DURING VISIT.
[2021-11-05] MEDS: 0.9 % Sodium Chloride Flush 3 ML SYRINGE IVFLUSH (14:25)
[2021-11-06] VITALS (10 sets, daily range): BP systolic 80–127; BP diastolic 51–67; PULSE 53–84; RESP 14–20; TEMP 35.9–37.1; O2SAT 90–100
[2021-11-06] MEDS: Omeprazole 20 MG CAPSULE.DR PO (05:38)
[2021-11-06 07:33] LABS: Anion Gap 11 (12-20); Blood Urea Nitrogen 11 mg/dL (9-16); Calcium 8.2 mg/dL (8.4-10.2); Carbon Dioxide 25 mmol/L (22-29); Chloride 108 mmol/L (96-108); Creatinine Clr Calc Pharmacy 77.5; Estimated Glomerular Filt Rate > 60; Glucose Random 147 mg/dL (60-115); Potassium 3.5 mmol/L (3.3-5.1); Sodium 140 mmol/L (135-145)
[2021-11-06] MEDS: Fluticasone/Vilanterol 100/25 BLST.W.DEV 1 PUFF INHALE ×2 (07:52→20:09)
[2021-11-06] MEDS: QUEtiapine Fumarate 25 MG TABLET PO ×2 (08:47→20:55)
[2021-11-06] MEDS: Gabapentin 600 MG TABLET PO ×2 (08:48→20:55)
[2021-11-06] MEDS: diazePAM 5 MG TABLET PO (08:48)
[2021-11-06] MEDS: Aspirin 81 MG TAB.CHEW PO (08:49)
[2021-11-06] MEDS: DULoxetine HCl 60 MG CAPSULE.DR PO (08:49)
[2021-11-06] MEDS: 0.9 % Sodium Chloride Flush 3 ML SYRINGE IVFLUSH ×2 (08:49→21:00)
[2021-11-06] MEDS: 0.9 % Sodium Chloride 1,000 ML 100 ML IVCONT (08:58)
--- NOTE | 2021-11-06 12:16 | MHC.CM.PN ---
Patient is not yet medically cleared for dc. IPLOC appears to be the plan; PT is recommending STR. CM will continue to follow.
[2021-11-06] MEDS: cefTRIAXone sodium 1 GM in 0.9 % Sodium Chloride 50 ML IV (12:51)
--- NOTE | 2021-11-06 14:09 | P.PNIM_ITS ---
Subjective Subjective Date of Service: 11/06/21 Interval History: the patient was seen and evaluated this morning Laying in bed, feels dizzy and unsteady upon standing up Denies any fever, chills or chest pain No reported other overnight events. Systemic review: No fever, chills but reported dizziness and near-syncope upon standing up No chest pain, palpitation dyspnea on exertion No abdominal pain, nausea or vomiting No urinary symptoms No any rash or wounds Physical Exam Vital Signs: Vital Signs: Last Vital Signs Temp 98.5 F 11/06/21 11:15 Pulse 56 11/06/21 11:15 Resp 19 11/06/21 11:15 BP 89/51 L 11/06/21 11:15 Pulse Ox 98 11/06/21 11:15 BMI result Body Mass Index 19.5 Const: Other: Constitutional : Alert, oriented, not in distress Neck : Normal inspection, Supple Cardiovascular : RRR, no JVP, no lower extremity edema Respiratory : fair bilateral air entry, no crackles, wheezes or rhonchi Gastrointestinal: soft, lax, Normal bowel sounds, Non tender Skin : Warm, Dry Neurological : Alert & oriented x3, No focal deficit Objective Data Active Medications Aspirin (Aspirin 81 Mg Tab.Chew) 81 mg PO DAILY [facility] Last Admin: 11/06/21 08:49 Dose: 81 mg Documented by: MOODY Diazepam (Diazepam 5 Mg Tablet) 5 mg PO DAILY [facility] Last Admin: 11/06/21 08:48 Dose: 5 mg Documented by: MOODY Docusate Sodium (Docusate Sodium 100 Mg Capsule) 100 mg PO BID PRN PRN Reason: constipation Doxycycline Hyclate (Doxycycline Hyclate 100 Mg Tablet) 100 mg PO BID [facility] Stop: 11/06/21 21:01 Last Admin: 11/06/21 08:48 Dose: 100 mg Documented by: MOODY Duloxetine HCl (Duloxetine Hcl 60 Mg Capsule.Dr) 60 mg PO DAILY [facility] Last Admin: 11/06/21 08:49 Dose: 60 mg Documented by: MOODY Fluticasone/Vilanterol (Fluticasone/Vilanterol 100/25 Blst.W.Dev) 1 puff INHALE RBID [facility] Last Admin: 11/06/21 07:52 Dose: 1 puff Documented by: HEMAL Gabapentin (Gabapentin 600 Mg Tablet) 600 mg PO BID [facility] Last Admin: 11/06/21 08:48 Dose: 600 mg Documented by: MOODY Ceftriaxone Sodium 1 gm/ (Sodium Chloride) 50 mls @ 100 mls/hr IV Q24H [facility] Last Admin: 11/06/21 12:51 Dose: 100 mls/hr Documented by: MOODY Sodium Chloride (Ns) 1,000 mls @ 100 mls/hr IVCONT .Q10H [facility] Last Admin: 11/06/21 08:58 Dose: 100 mls/hr Documented by: MOODY Midodrine (Midodrine Hcl 5 Mg Tablet) 5 mg PO TID [facility] Last Admin: 11/06/21 09:21 Dose: Not Given Documented by: MOODY Non-Admin Reason: Patient Refused Comments: MD correa notified Omeprazole (Omeprazole 20 Mg Capsule.Dr) 20 mg PO DAILY@0630 [facility] Last Admin: 11/06/21 05:38 Dose: 20 mg Documented by: KARRIE Pharmacy Consult (Consult Rx Perform Med Rec) 1 each MISCELLANE ONCE PRN PRN Reason: Consult order Quetiapine Fumarate (Quetiapine Fumarate 25 Mg Tablet) 25 mg PO BID [facility] Last Admin: 11/06/21 08:47 Dose: 25 mg Documented by: MOODY Sodium Chloride (0.9 % Sodium Chloride Flush 3 Ml Syringe) 3 ml IVFLUSH QSHIFT [facility] Last Admin: 11/06/21 08:49 Dose: 3 ml Documented by: MOODY Labs CBC & Chem 7: 11/03/21 09:38 11/06/21 06:40 Labs: Laboratory Results - last 24 hr 11/06/21 06:40 Anion Gap 11 L Estim Creat Clear Calc 77.5 Estimated GFR > 60 Random Glucose 147 H Calcium 8.2 L D Assessment and Plan (1) Suicidal ideation: Status: Acute (2) Pneumonia: Status: Acute (3) Orthostatic hypotension: Status: Acute Plan 56 year old women admitted with Hypotension? with secondary suicide ideation orthostatic Hypotension.? blood pressure runs low, stopped antihypertensive about a week ago. 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 continue home medications BHN consultation when medically cleared DVT prophylaxis with Lovenox Continued hospitalization for treatment of orthostatic hypotension with continued dizziness requiring IV fluids and monitoring midodrine. Quality Stroke Does the patient have a stroke diagnosis?: No VTE Prior VTE?: No VTE Risk Level:: Medical - moderate - high VTE Device Contraindication: Treatment Not Indicated VTE Drug Contraindication: N/A - Med Ordered
[2021-11-06] MEDS: Midodrine HCl 5 MG TABLET PO ×2 (15:33→20:56)
[2021-11-07] VITALS (8 sets, daily range): BP systolic 99–125; BP diastolic 56–78; PULSE 50–72; RESP 16–18; TEMP 36.2–36.7; O2SAT 97–99
[2021-11-07] MEDS: Melatonin 3 MG TABLET 6 MG PO (00:17)
[2021-11-07] MEDS: 0.9 % Sodium Chloride 1,000 ML 100 ML IVCONT (03:27)
[2021-11-07] MEDS: Omeprazole 20 MG CAPSULE.DR PO (06:07)
[2021-11-07 06:53] LABS: Anion Gap 10 (12-20); Blood Urea Nitrogen 10 mg/dL (9-16); Calcium 8.3 mg/dL (8.4-10.2); Carbon Dioxide 26 mmol/L (22-29); Chloride 108 mmol/L (96-108); Creatinine Clr Calc Pharmacy 78.8; Estimated Glomerular Filt Rate > 60; Glucose Random 91 mg/dL (60-115); Potassium 3.8 mmol/L (3.3-5.1); Sodium 140 mmol/L (135-145)
[2021-11-07] MEDS: Fluticasone/Vilanterol 100/25 BLST.W.DEV 1 PUFF INHALE (07:49)
[2021-11-07] MEDS: DULoxetine HCl 60 MG CAPSULE.DR PO (09:27)
[2021-11-07] MEDS: Aspirin 81 MG TAB.CHEW PO (09:27)
[2021-11-07] MEDS: Midodrine HCl 5 MG TABLET PO ×2 (09:28→16:45)
[2021-11-07] MEDS: diazePAM 5 MG TABLET PO (09:28)
[2021-11-07] MEDS: QUEtiapine Fumarate 25 MG TABLET PO (09:28)
[2021-11-07] MEDS: Gabapentin 600 MG TABLET PO (09:28)
[2021-11-07] MEDS: Baclofen 10 MG TABLET PO (09:31)
[2021-11-07] MEDS: 0.9 % Sodium Chloride Flush 3 ML SYRINGE IVFLUSH ×2 (09:32→16:46)
--- NOTE | 2021-11-07 11:16 | PM.DS ---
DS: Providers Provider Date of Service: 11/07/21 Date of admission: 11/03/21 11:57 Primary care physician: Yamil Reis MD Consults: 11/07/21 10:22 Consult to Care Team Routine Comment: Reason for consultation: medically clear, for SI eval and rec. DS: Diagnosis Discharge Diagnosis (1) Suicidal ideation: Status: Acute (2) Pneumonia: Status: Acute (3) Orthostatic hypotension: Status: Acute DS: Summary Hospital Course Hospital Course: admission note HPI ?56-year-old woman presented to the ER with suicidal ideation and severe depression.? She was transferred to the Psychiatric pot in the ER and subsequently found to be hypotensive and orthostatic.? She was then transferred back to the main ER and blood pressures systolic Jerica had been in the low 70s at 1 point.? She was treated with IV fluids good response but blood pressures have remained low therefore was decided that patient be admitted to medical service.? She reports that her blood pressure had been low for about 2 weeks and she stopped her amlodipine.? She reported normally her blood pressure was quite high.? She denied chest pain, shortness breath, nausea, vomiting, diarrhea.? She did self report a fever at home.? She denied any new medication. ? In the ER labs did know his mild anemia no kidney dysfunction, no fever.? She was given 3 L of IV .? Chest CT did show patchy bilateral airspace opacities consistent with multifocal pneumonia, she was started on Rocephin and doxycycline.? She will be admitted for further management and treatment of community-acquired pneumonia and hypotension. Hospital course the patient presented to the hospital with suicidal ideation but was found to be hypotensive with an evidence of pneumonia on the x-ray. She was found to have orthostatic hypotension with lightheadedness and dizziness upon standing up. Admitted to the hospital as her amlodipine and propranolol were held. Received IV fluid and midodrine with fair response as her blood pressure reading improved even though continue to drop a little upon standing but with no more lightheadedness or dizziness. She was treated with IV antibiotics of doxycycline and ceftriaxone for pneumonia. She was not septic at any point. Her blood cultures remain negative as she did not require any oxygen supplement and remained on room air. Evaluated by the care team for suicidal ideation as she was placed on Section 12 and had a sitter in her room. Care team recommended discharging the patient to psychiatry unit on M5. Stop taking Amlodipine Decrease propranolol to 10 mg 3 times a day Start midodrine 5 mg 3 times a day Continue antibiotics for 5 more days Time Spent with Patient Time attestation: Total time spent providing and/or coordinating discharge services: Discharge coordination time: Greater than 30 minutes Quality: Safe Use of Opioids Does Pt have an Active Cancer Diagnosis on the Problem List?: No Quality: Stroke Does the patient have a stroke diagnosis?: No Physical Exam Vital Signs: Vital Signs: Last Vital Signs Temp 97.8 F 11/07/21 07:51 Pulse 62 11/07/21 08:42 Resp 16 11/07/21 07:51 BP 99/65 11/07/21 08:42 Pulse Ox 97 11/07/21 07:51 BMI result Body Mass Index 19.5 Const: Other: Constitutional : Alert, oriented, not in distress Neck : Normal inspection, Supple Cardiovascular : RRR, no JVP, no lower extremity edema Respiratory : fair bilateral air entry, no crackles, wheezes or rhonchi Gastrointestinal: soft, lax, Normal bowel sounds, Non tender Skin : Warm, Dry Neurological : Alert & oriented x3, No focal deficit DS: Data Data Completed and Pending Labs on day of discharge: Laboratory Results - last 24 hr 11/07/21 05:57 Sodium 140 Potassium 3.8 Chloride 108 Carbon Dioxide 26 Anion Gap 10 L BUN 10 Creatinine 0.62 Estim Creat Clear Calc 78.8 Estimated GFR > 60 Random Glucose 91 Calcium 8.3 L Preliminary micro results at discharge 11/02/21 17:16 Blood Culture - Preliminary Blood - Venous No growth after 48 hours. 11/02/21 17:01 Blood Culture - Preliminary Blood - Venous No growth after 48 hours. Discharge Plan Discharge Patient Disposition: Xfer Psychiatric Hosp Discharge Diagnosis: Pneumonia postural hypotension Suicidal ideation Referrals: Yamil Reis MD [Primary Care Provider] - 1 Week Discharge Medications: New midodrine 5 mg Tablet 5 mg PO TID Qty: 90 0RF doxycycline hyclate 100 mg Tablet 100 mg PO Q12H Qty: 9 0RF cefuroxime axetil 500 mg tablet 500 mg PO BID Qty: 9 0RF Continued quetiapine 25 mg tablet 1 tab PO BID 0RF fluticasone propion-salmeterol [Advair Diskus] 250-50 mcg/dose blister with device 1 inh PO BID 0RF gabapentin 600 mg tablet 1 tab PO BID 0RF pantoprazole 20 mg tablet,delayed release (DR/EC) 1 tab PO DAILY 0RF baclofen 10 mg tablet 1 tab PO BID PRN (Reason: Muscle Spasm) 0RF docusate sodium 100 mg capsule 1 cap PO BID PRN (Reason: constipation) 0RF aspirin 81 mg tablet,chewable 1 tab PO DAILY 0RF duloxetine 60 mg capsule,delayed release(DR/EC) 1 cap PO DAILY 0RF diazepam 5 mg tablet 5 mg PO DAILY 0RF diazepam 5 mg tablet 10 mg PO BEDTIME 0RF ibuprofen 800 mg tablet 1 tab PO Q8H PRN (Reason: Pain) 0RF Changed propranolol 20 mg tablet 0.5 tab PO TID Qty: 0 0RF Discontinued amlodipine 5 mg tablet 1 tab PO DAILY 0RF Discharge Orders: Discharge Order (Routine); Ordered 11/07/21 Ordered By: Catina Loja Diet: advance to usual diet Activity on Discharge: As tolerated Stand Alone Forms: Patient Portal Discharge page Print Language: Upper Sorbian Plan of Treatment: to be transferred to M5 floor for inpatient psychiatry evaluation treatment Assessment: stop taking Amlodipine Decrease propranolol to 10 mg 3 times a day Start midodrine 5 mg 3 times a day Continue antibiotics for 5 more days
[2021-11-07] MEDS: cefTRIAXone sodium 1 GM in 0.9 % Sodium Chloride 50 ML IV (12:57)
== END 2021-11-07 17:00 | disposition short-term general hospital (02) | DRG 194 ==
LOC: HO.ED 11-03 11:39 → HO.EDOVER 11-03 12:25 → HO.IMC 11-04 15:43
PROVIDERS: Physician Assistant; Physician Assistant Medical; Admitting Provider Nurse Practitioner Acute Care; Emergency Provider Emergency Medicine Emergency Medical Services; PCP Emergency Medicine; Visit Provider Student in an Organized Health Care Education/Training Program
DX: J18.9 Pneumonia, unspecified organism (principal); G25.82 Stiff-man syndrome; J44.0 Chronic obstructive pulmonary disease with (acute) lower respiratory infection; R45.851 Suicidal ideations; F17.210 Nicotine dependence, cigarettes, uncomplicated; F32.A Depression, unspecified; F43.10 Post-traumatic stress disorder, unspecified; I95.1 Orthostatic hypotension; Z20.822 Contact with and (suspected) exposure to COVID-19; Z71.6 Tobacco abuse counseling; Z88.8 Allergy status to other drugs, medicaments and biological substances; Z79.51 Long term (current) use of inhaled steroids; Z79.82 Long term (current) use of aspirin; Z79.899 Other long term (current) drug therapy
CPT/HCPCS: 36415; 70450; 71046; 71250; 76775; 80048; 80053; 80061; 80076; 80307; 81001; 81003; 82077; 82607; 82746; 82947; 83036; 83605; 83735; 84439; 84443; 84484; 85025; 87040; 87086; 87635; 93005; 94640; 94664; 96361; 96374; 97116; 97162; 99285; J0696

== ENCOUNTER 2021-11-07 18:04 | Inpatient (IN) | payer MEDICARE, MEDICAID, SELFPAY ==
--- NOTE | ~2021-11-07 | US_ITS ---
EXAMINATION: US RETROPERITONEAL LIMITED (RENAL ONLY) CLINICAL INFORMATION: Flank pain. Rule out stone.. COMPARISON: None TECHNIQUE: Grayscale and color imaging of the kidneys FINDINGS: RIGHT KIDNEY: 10.4 x 4.2 x 6 cm (SAG x AP x TRV). The kidney is normal in size, contour, and echogenicity. Renal cortical thickness is normal. There is a 3.7 x 2.6 x 3.3 cm minimally complex cyst midpole with septation. No calculi or focal parenchymal lesions. No hydronephrosis. LEFT KIDNEY: 10.9 x 4.3 x 4.7 cm (SAG x AP x TRV). The kidney is normal in size, contour, and echogenicity. Renal cortical thickness is normal. No calculi or focal parenchymal lesions. No hydronephrosis. US/US renal BI IMPRESSION: No stone seen. 3.7 x 2.6 x 3.3 cm minimally complex right renal cyst.
--- NOTE | ~2021-11-07 | CT_ITS ---
EXAMINATION: CT HEAD WITHOUT CONTRAST CLINICAL INFORMATION: Abnormal blood pressure. COMPARISON: None TECHNIQUE: Contiguous axial imaging was performed from the skull base to vertex without intravenous administration of contrast. This CT examination was performed using dose optimization techniques as appropriate, variously including the following: *Automated exposure control *Adjustment of mA and/or kV according to patient size (this includes techniques or standardized protocols for targeted exams where dose is matched to indication/reason for exam; i.e. extremities or head) *Use of iterative reconstruction technique DLP: 694 mGy-cm FINDINGS: There is no evidence of acute intracranial hemorrhage or territorial infarction. No abnormal mass effect or midline shift is seen. Nicholas to white matter differentiation is well preserved. No extra-axial fluid collections are identified. The ventricles are normal in size. There is no abnormal attenuation within the brain parenchyma. The osseous structures and soft tissues are normal. The mastoid air cells and visualized portions of the paranasal sinuses are well aerated. CT/CT head/brain wo con IMPRESSION: No acute intracranial pathology.
[2021-11-07 17:30] VITALS: BP 82/46; PULSE 46; RESP 16; TEMP 36.8; O2SAT 95
[2021-11-07 18:50] VITALS: BMI 19.5
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
[2021-11-07 20:26] VITALS: BP 105/56; PULSE 55; RESP 16; TEMP 36.5
[2021-11-07] MEDS: Gabapentin 600 MG TABLET PO (20:30)
[2021-11-07] MEDS: diazePAM 5 MG TABLET 10 MG PO (20:31)
[2021-11-07] MEDS: QUEtiapine Fumarate 25 MG TABLET PO (20:31)
[2021-11-07] MEDS: Baclofen 10 MG TABLET PO (20:35)
[2021-11-08 06:00] VITALS: BP 106/58; PULSE 69; RESP 18; TEMP 36.4; O2SAT 98
[2021-11-08] MEDS: Omeprazole 20 MG CAPSULE.DR PO (06:49)
[2021-11-08] MEDS: Midodrine HCl 5 MG TABLET PO ×3 (09:11→18:37)
[2021-11-08] MEDS: QUEtiapine Fumarate 25 MG TABLET PO ×2 (09:11→20:30)
[2021-11-08] MEDS: Gabapentin 600 MG TABLET PO ×2 (09:11→20:30)
[2021-11-08] MEDS: Propranolol HCL 10 MG TABLET PO (09:12)
[2021-11-08] MEDS: diazePAM 5 MG TABLET PO (09:12)
[2021-11-08] MEDS: Aspirin 81 MG TAB.CHEW PO (09:12)
[2021-11-08] MEDS: DULoxetine HCl 60 MG CAPSULE.DR PO (09:12)
--- NOTE | 2021-11-08 09:22 | MHC.CLN ---
NUTRITION PATIENT SEEN PRIOR TO MOVE TO M5. ORDERING STRAWBERRY ENSURE TID. PATIENT LIKES/REQUESTED STRAWBERRY FLAVOR, COLD.
[2021-11-08 09:31] LABS: Cholesterol 169 mg/dL; HDL Cholesterol 28 mg/dL; LDL Cholesterol Calculated 123 mg/dl; Triglycerides 94 mg/dL
[2021-11-08 09:46] LABS: Estimated Average Glucose 105 mg/dL; Hemoglobin A1c % 5.3 %
[2021-11-08 09:50] LABS: TSH reflex Free T4 0.27 uIU/mL (0.32-4.0)
--- NOTE | 2021-11-08 10:38 | PC.NURSE ---
Nicotine Replacement Lawanda declined offers for nicotine replacement therapy while in the hospital.
[2021-11-08 11:05] LABS: Free T4 (Free Thyroxine) 0.93 ng/dL (0.71-1.85)
[2021-11-08 11:58] LABS: Folate 6.2 ng/mL (> or = 4.0); Vitamin B12 580 pg/mL (200-900)
[2021-11-08] MEDS: Ibuprofen 800 MG TABLET PO (15:02)
[2021-11-08 15:04] VITALS: BP 85/50; PULSE 72; RESP 16
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
[2021-11-08 18:00] VITALS: BP 89/50; PULSE 55; RESP 16; TEMP 36.1; O2SAT 98
[2021-11-08] MEDS: diazePAM 5 MG TABLET 10 MG PO (20:27)
[2021-11-09 06:00] VITALS: BP 86/56; PULSE 61; RESP 16; TEMP 36.6; O2SAT 97
[2021-11-09] MEDS: Aspirin 81 MG TAB.CHEW PO (09:43)
[2021-11-09] MEDS: diazePAM 5 MG TABLET PO (09:43)
[2021-11-09] MEDS: Midodrine HCl 5 MG TABLET PO ×3 (09:44→17:03)
[2021-11-09] MEDS: Gabapentin 600 MG TABLET PO ×2 (09:44→20:43)
[2021-11-09] MEDS: QUEtiapine Fumarate 25 MG TABLET PO ×2 (09:44→20:43)
[2021-11-09] MEDS: DULoxetine HCl 60 MG CAPSULE.DR PO (09:44)
[2021-11-09] MEDS: Ibuprofen 800 MG TABLET PO (13:27)
--- NOTE | 2021-11-09 16:44 | HO.PSYCHPN ---
Subjective Subjective Date of Service: 11/09/21 Reason For Visit: PTSD Subjective Notes: Conditional Voluntary Healthcare Proxy: No Guardianship: No Medical Problems Affecting Mental Status: No Interim History: Hypotensive with intermittent dizziness,vertigo. 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 No delusional content when we met. Pt is grounded and reality based. Participates in milieu and self care. Medication Compliance: Yes Side effects from medications: No Attending Groups: Yes Review of Systems Acute medical concerns: No Medical Review of Systems: unchanged Mental Status Exam Mental Status Exam Patient Appearance: Fatigued Patient Orientation: Person, Place, Time and Situation Level of Consciousness: Alert Patient Behavior: Talkative, Cooperative, Passive, Anxious, Fearful, Fatigued and Good Eye Contact Mood Description: Anxious and Apprehensive Affect Description: Anxious and Apprehensive Patient Cognition Impaired: No Ability to Follow Directions: Good Speech Pattern: Perseverating, Spontaneous Speech and Soft-Spoken Memory Description: Episodic Impaired Hallucinations: None (denies) Delusions: Paranoid Ideation and Present Perceptual Disturbances: Depersonalization and Derealization Thought Process: Rumination Thought Content: positive for Obsessional Thoughts, positive for Circumstantial, positive for Perseveration and positive for Preoccupation Depressive Symptoms: Increased Anxiety, Diff. Making Decisions, Significant Weight Loss, Increased Fatigue, Thoughts of /Suicide, Loss of Energy and Difficulty Concentrating Judgement: Poor Diagnostics Vital Signs (24Hr): Vital Signs - 24 hr 11/08/21 18:00 11/09/21 06:00 Temperature 97 F 97.8 F Pulse Rate 55 61 Respiratory Rate 16 16 Blood Pressure 89/50 L 86/56 L Pulse Oximetry 98 97 BMI result Body Mass Index 19.5 Labs Labs: Laboratory Results - last 48 hr 11/08/21 11/08/21 11/08/21 09:01 09:01 09:01 Estimat Average Glucose 105 Hemoglobin A1c % 5.3 Triglycerides 94 Cholesterol 169 LDL Cholesterol, Calc 123 HDL Cholesterol 28 Vitamin B12 580 Folate 6.2 TSH Free T4 11/08/21 11/08/21 09:01 09:01 Estimat Average Glucose Hemoglobin A1c % Triglycerides Cholesterol LDL Cholesterol, Calc HDL Cholesterol Vitamin B12 Folate TSH Cancelled 0.27 L Free T4 0.93 Medications Medications Current Medications Acetaminophen (Acetaminophen 325 Mg Tablet) 650 mg PO Q6H PRN PRN Reason: Headache/Pain Mild Scale (1-3) Al Hydroxide/Mg Hydroxide (Magnesium Hydrox/Alum Hydrox 30 Ml Oral.Susp) 30 ml PO Q6H PRN PRN Reason: Heartburn/Nausea Aspirin (Aspirin 81 Mg Tab.Chew) 81 mg PO DAILY [facility] Last Admin: 11/09/21 09:43 Dose: 81 mg Documented by: Baclofen (Baclofen 10 Mg Tablet) 10 mg PO BID PRN PRN Reason: spasticity Last Admin: 11/07/21 20:35 Dose: 10 mg Documented by: Cefuroxime Axetil (Cefuroxime Axetil 500 Mg Tablet) 500 mg PO Q12H [facility] Stop: 11/12/21 20:59 Last Admin: 11/09/21 09:44 Dose: 500 mg Documented by: Diazepam (Diazepam 5 Mg Tablet) 5 mg PO DAILY [facility] Last Admin: 11/09/21 09:43 Dose: 5 mg Documented by: Diazepam (Diazepam 5 Mg Tablet) 10 mg PO BEDTIME [facility] Last Admin: 11/08/21 20:27 Dose: 10 mg Documented by: Docusate Sodium (Docusate Sodium 100 Mg Capsule) 100 mg PO BID PRN PRN Reason: constipation Doxycycline Hyclate (Doxycycline Hyclate 100 Mg Tablet) 100 mg PO Q12H [facility] Last Admin: 11/09/21 09:44 Dose: 100 mg Documented by: Duloxetine HCl (Duloxetine Hcl 60 Mg Capsule.Dr) 60 mg PO DAILY [facility] Last Admin: 11/09/21 09:44 Dose: 60 mg Documented by: Fluticasone/Vilanterol (Fluticasone/Vilanterol 100/25 Blst.W.Dev) 1 puff INHALE RDAILY [facility] Last Admin: 11/09/21 09:45 Dose: Not Given Documented by: Gabapentin (Gabapentin 600 Mg Tablet) 600 mg PO BID [facility] Last Admin: 11/09/21 09:44 Dose: 600 mg Documented by: Hydroxyzine HCl (Hydroxyzine Hcl 25 Mg Tablet) 25 mg PO BEDTIME PRN PRN Reason: Anxiety Ibuprofen (Ibuprofen 800 Mg Tablet) 800 mg PO Q8H PRN PRN Reason: Pain, Moderate (Pain Scale 4-6 Last Admin: 11/09/21 13:27 Dose: 800 mg Documented by: Magnesium Hydroxide (Milk Of Magnesia 30 Ml Oral.Susp) 30 ml PO DAILY PRN PRN Reason: Constipation Melatonin (Melatonin 3 Mg Tablet) 6 mg PO BEDTIME PRN PRN Reason: Insomnia Midodrine (Midodrine Hcl 5 Mg Tablet) 5 mg PO TIDWM [facility] Last Admin: 11/09/21 13:27 Dose: 5 mg Documented by: Omeprazole (Omeprazole 20 Mg Capsule.Dr) 20 mg PO DAILY@0630 [facility] Last Admin: 11/09/21 09:45 Dose: Not Given Documented by: Propranolol HCl (Propranolol Hcl 10 Mg Tablet) 10 mg PO TID [facility]; Protocol Last Admin: 11/09/21 14:19 Dose: Not Given Documented by: Quetiapine Fumarate (Quetiapine Fumarate 25 Mg Tablet) 25 mg PO BID [facility] Last Admin: 11/09/21 09:44 Dose: 25 mg Documented by: Trazodone HCl (Trazodone Hcl 50 Mg Tablet) 50 mg PO BEDTIME PRN PRN Reason: Insomnia Allergies Allergies Allergy/AdvReac Type Severity Reaction Status Date / Time albuterol AdvReac Palpitation Verified 11/01/21 20:16 s Assessment & Plan Assessment & Plan (1) Delusional disorder: Status: Acute Code(s): F22 - Delusional disorders (2) Acute paranoia: Status: Acute Code(s): F22 - Delusional disorders (3) Suicidal ideation: Status: Acute Code(s): R45.851 - Suicidal ideations Plan 56 yo female, hx of PTSD, Delusional disorder. Recent admission to [facility] with medication changes that she reports have been helping. Recent increase in sx of SI with plan to go into a river and increase in paranoia and delusional content. Reports feeling that she will run out of meds before her first psychopharmacology appt 11/19. Plan: Observation [place] building Education regarding sx mgt-medicine changes as needed. Review diagnostics Collateral contacts 11/09/21- Continue current plan. I spent minutes with the patient and/or on the patient floor today, greater than?50% of which was spent counseling/coordinating care. Patient educated on: therapeutic strategies Informed Consent: understands and further education needed Reason for contiued inpatient stay Substantial Risk for: inability to function and rapid decompensation
[2021-11-09 17:15] VITALS: BP 83/51; PULSE 62; RESP 16; O2SAT 99
[2021-11-09] MEDS: diazePAM 5 MG TABLET 10 MG PO (20:43)
[2021-11-10 06:00] VITALS: BP 87/52; PULSE 54; RESP 16; TEMP 36.8; O2SAT 99
[2021-11-10] MEDS: Gabapentin 600 MG TABLET PO ×2 (09:15→20:12)
[2021-11-10] MEDS: QUEtiapine Fumarate 25 MG TABLET PO ×2 (09:15→20:11)
[2021-11-10] MEDS: diazePAM 5 MG TABLET PO (09:15)
[2021-11-10] MEDS: Midodrine HCl 5 MG TABLET PO ×3 (09:16→17:04)
[2021-11-10] MEDS: Aspirin 81 MG TAB.CHEW PO (09:16)
[2021-11-10] MEDS: DULoxetine HCl 60 MG CAPSULE.DR PO (09:16)
--- NOTE | 2021-11-10 10:46 | HO.PSYCHPN ---
Subjective Subjective Date of Service: 11/10/21 Reason For Visit: PTSD Subjective Notes: Conditional Voluntary Interim History: No questions or concerns today. Increase in time resting. States she is trying to increase fluids to help with blood pressure readings. Medication Compliance: Yes Side effects from medications: No Attending Groups: Yes Review of Systems Acute medical concerns: No Medical Review of Systems: unchanged Mental Status Exam Mental Status Exam Patient Appearance: Fatigued Patient Orientation: Person, Place, Time and Situation Level of Consciousness: Alert Patient Behavior: Talkative, Cooperative, Passive, Anxious, Fearful, Fatigued and Good Eye Contact Mood Description: Anxious and Apprehensive Affect Description: Anxious and Apprehensive Patient Cognition Impaired: No Ability to Follow Directions: Good Speech Pattern: Perseverating, Spontaneous Speech and Soft-Spoken Memory Description: Episodic Impaired Hallucinations: None (denies) Delusions: Paranoid Ideation and Present Perceptual Disturbances: Depersonalization and Derealization Thought Process: Rumination Thought Content: positive for Obsessional Thoughts, positive for Circumstantial, positive for Perseveration and positive for Preoccupation Depressive Symptoms: Increased Anxiety, Diff. Making Decisions, Significant Weight Loss, Increased Fatigue, Thoughts of /Suicide, Loss of Energy and Difficulty Concentrating Judgement: Poor Diagnostics Vital Signs (24Hr): Vital Signs - 24 hr 11/09/21 17:15 11/10/21 06:00 Temperature 98.2 F Pulse Rate 62 54 Respiratory Rate 16 16 Blood Pressure 83/51 L 87/52 L Pulse Oximetry 99 99 BMI result Body Mass Index 19.5 Labs Labs: Laboratory Results - last 48 hr 11/08/21 11/08/21 09:01 09:01 Vitamin B12 580 Folate 6.2 Free T4 0.93 Medications Medications Current Medications Acetaminophen (Acetaminophen 325 Mg Tablet) 650 mg PO Q6H PRN PRN Reason: Headache/Pain Mild Scale (1-3) Al Hydroxide/Mg Hydroxide (Magnesium Hydrox/Alum Hydrox 30 Ml Oral.Susp) 30 ml PO Q6H PRN PRN Reason: Heartburn/Nausea Aspirin (Aspirin 81 Mg Tab.Chew) 81 mg PO DAILY [facility] Last Admin: 11/10/21 09:16 Dose: 81 mg Documented by: Baclofen (Baclofen 10 Mg Tablet) 10 mg PO BID PRN PRN Reason: spasticity Last Admin: 11/07/21 20:35 Dose: 10 mg Documented by: Cefuroxime Axetil (Cefuroxime Axetil 500 Mg Tablet) 500 mg PO Q12H [facility] Stop: 11/12/21 20:59 Last Admin: 11/10/21 09:16 Dose: 500 mg Documented by: Diazepam (Diazepam 5 Mg Tablet) 5 mg PO DAILY [facility] Last Admin: 11/10/21 09:15 Dose: 5 mg Documented by: Diazepam (Diazepam 5 Mg Tablet) 10 mg PO BEDTIME [facility] Last Admin: 11/09/21 20:43 Dose: 10 mg Documented by: Docusate Sodium (Docusate Sodium 100 Mg Capsule) 100 mg PO BID PRN PRN Reason: constipation Doxycycline Hyclate (Doxycycline Hyclate 100 Mg Tablet) 100 mg PO Q12H [facility] Last Admin: 11/10/21 09:15 Dose: 100 mg Documented by: Duloxetine HCl (Duloxetine Hcl 60 Mg Capsule.) 60 mg PO DAILY [facility] Last Admin: 11/10/21 09:16 Dose: 60 mg Documented by: Fluticasone/Vilanterol (Fluticasone/Vilanterol 100/25 Blst.W.Dev) 1 puff INHALE RDAILY [facility] Last Admin: 11/10/21 09:16 Dose: Not Given Documented by: Gabapentin (Gabapentin 600 Mg Tablet) 600 mg PO BID [facility] Last Admin: 11/10/21 09:15 Dose: 600 mg Documented by: Hydroxyzine HCl (Hydroxyzine Hcl 25 Mg Tablet) 25 mg PO BEDTIME PRN PRN Reason: Anxiety Ibuprofen (Ibuprofen 800 Mg Tablet) 800 mg PO Q8H PRN PRN Reason: Pain, Moderate (Pain Scale 4-6 Last Admin: 11/09/21 13:27 Dose: 800 mg Documented by: Magnesium Hydroxide (Milk Of Magnesia 30 Ml Oral.Susp) 30 ml PO DAILY PRN PRN Reason: Constipation Melatonin (Melatonin 3 Mg Tablet) 6 mg PO BEDTIME PRN PRN Reason: Insomnia Midodrine (Midodrine Hcl 5 Mg Tablet) 5 mg PO TIDWM [facility] Last Admin: 11/10/21 09:16 Dose: 5 mg Documented by: Omeprazole (Omeprazole 20 Mg Capsule.) 20 mg PO DAILY@0630 [facility] Last Admin: 11/10/21 09:16 Dose: Not Given Documented by: Propranolol HCl (Propranolol Hcl 10 Mg Tablet) 10 mg PO TID [facility]; Protocol Last Admin: 11/10/21 09:16 Dose: Not Given Documented by: Quetiapine Fumarate (Quetiapine Fumarate 25 Mg Tablet) 25 mg PO BID [facility] Last Admin: 11/10/21 09:15 Dose: 25 mg Documented by: Trazodone HCl (Trazodone Hcl 50 Mg Tablet) 50 mg PO BEDTIME PRN PRN Reason: Insomnia Allergies Allergies Allergy/AdvReac Type Severity Reaction Status Date / Time albuterol AdvReac Palpitation Verified 11/01/21 20:16 s Assessment & Plan Assessment & Plan (1) Delusional disorder: Status: Acute Code(s): F22 - Delusional disorders (2) Acute paranoia: Status: Acute Code(s): F22 - Delusional disorders (3) Suicidal ideation: Status: Acute Code(s): R45.851 - Suicidal ideations Plan 56 yo female, hx of PTSD, Delusional disorder. Recent admission to [facility] with medication changes that she reports have been helping. Recent increase in sx of SI with plan to go into a river and increase in paranoia and delusional content. Reports feeling that she will run out of meds before her first psychopharmacology appt 11/19. Plan: Observation [place] building Education regarding sx mgt-medicine changes as needed. Review diagnostics Collateral contacts 11/10/21 Continue current plan. I spent minutes with the patient and/or on the patient floor today, greater than?50% of which was spent counseling/coordinating care. Patient educated on: therapeutic strategies Informed Consent: further education needed Reason for contiued inpatient stay Substantial Risk for: inability to function and rapid decompensation
[2021-11-10] MEDS: Ibuprofen 800 MG TABLET PO (13:08)
[2021-11-10 14:40] VITALS: BP 89/53; PULSE 57; RESP 14
[2021-11-10 19:35] VITALS: BP 109/57; PULSE 50; RESP 16; TEMP 36.4; O2SAT 98
[2021-11-10] MEDS: diazePAM 5 MG TABLET 10 MG PO (20:10)
[2021-11-10] MEDS: Melatonin 3 MG TABLET 6 MG PO (20:48)
[2021-11-11 06:00] VITALS: BP 97/52; PULSE 53; RESP 16; TEMP 36.7; O2SAT 99
[2021-11-11] MEDS: QUEtiapine Fumarate 25 MG TABLET PO ×2 (08:55→20:54)
[2021-11-11] MEDS: diazePAM 5 MG TABLET PO (08:55)
[2021-11-11] MEDS: Midodrine HCl 5 MG TABLET PO ×2 (08:55→13:58)
[2021-11-11] MEDS: Aspirin 81 MG TAB.CHEW PO (08:56)
[2021-11-11] MEDS: DULoxetine HCl 60 MG CAPSULE.DR PO (08:56)
[2021-11-11] MEDS: Gabapentin 600 MG TABLET PO ×2 (09:05→20:54)
--- NOTE | 2021-11-11 13:19 | HO.PSYCHPN ---
Subjective Subjective Date of Service: 11/11/21 Reason For Visit: PTSD Subjective Notes: Conditional Voluntary Healthcare Proxy: No Guardianship: No Medical Problems Affecting Mental Status: No Interim History: Pt with ongoing hypotension-supportive interventions not helpful, pt reporting becoming more symptomatic. Pt seen by Dr. Kelley who increased midodrine and encouraged pt to sit for a few minutes when changing positions, use compression socks, drink water before getting OOB. Care also discussed with Dr. Lord- MRI or CAT recommended to rule out posterior circulation CVA. MRI ordered. Ada Smith, generation technologist cancelled this order and changed it to CAT scan. Pt reports humidity effects her symptoms-increase in pain. Psychiatrically she reports feeling well, except for hypotension and is feeling comfortable on the unit, liking some of the groups she attends and spending time with her peers. 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 Medication Compliance: Yes Side effects from medications: No Attending Groups: Yes Review of Systems Acute medical concerns: Yes Hypotensive Medical Review of Systems: unchanged Review of Systems Constitutional: Reports fatigue, Reports lethargy, Reports malaise and Reports weakness Cardiovascular: Reports other (hypotensive) Reports weakness Psychiatric: Reports no additional psychiatric complaints Endocrine: Reports fatigue Mental Status Exam Mental Status Exam Patient Appearance: Fatigued Patient Orientation: Person, Place, Time and Situation Level of Consciousness: Alert Patient Behavior: Talkative, Cooperative, Passive, Anxious, Fearful, Fatigued and Good Eye Contact Mood Description: Anxious and Apprehensive Affect Description: Anxious and Apprehensive Patient Cognition Impaired: No Ability to Follow Directions: Good Speech Pattern: Spontaneous Speech and Soft-Spoken Memory Description: Episodic Impaired Hallucinations: None (denies) Thought Content: positive for Circumstantial and positive for Preoccupation Depressive Symptoms: Increased Anxiety, Significant Weight Loss, Increased Fatigue and Loss of Energy Judgement: Fair Diagnostics Vital Signs (24Hr): Vital Signs - 24 hr 11/10/21 14:40 11/10/21 19:35 11/11/21 06:00 Temperature 97.5 F 98.0 F Pulse Rate 57 50 53 Respiratory Rate 14 16 16 Blood Pressure 89/53 L 109/57 L 97/52 L Pulse Oximetry 98 99 BMI result Body Mass Index 19.5 Medications Medications Current Medications Acetaminophen (Acetaminophen 325 Mg Tablet) 650 mg PO Q6H PRN PRN Reason: Headache/Pain Mild Scale (1-3) Al Hydroxide/Mg Hydroxide (Magnesium Hydrox/Alum Hydrox 30 Ml Oral.Susp) 30 ml PO Q6H PRN PRN Reason: Heartburn/Nausea Aspirin (Aspirin 81 Mg Tab.Chew) 81 mg PO DAILY [facility] Last Admin: 11/11/21 08:56 Dose: 81 mg Documented by: Baclofen (Baclofen 10 Mg Tablet) 10 mg PO BID PRN PRN Reason: spasticity Last Admin: 11/07/21 20:35 Dose: 10 mg Documented by: Cefuroxime Axetil (Cefuroxime Axetil 500 Mg Tablet) 500 mg PO Q12H [facility] Stop: 11/12/21 20:59 Last Admin: 11/11/21 08:56 Dose: 500 mg Documented by: Diazepam (Diazepam 5 Mg Tablet) 5 mg PO DAILY [facility] Last Admin: 11/11/21 08:55 Dose: 5 mg Documented by: Diazepam (Diazepam 5 Mg Tablet) 10 mg PO BEDTIME [facility] Last Admin: 11/10/21 20:10 Dose: 10 mg Documented by: Docusate Sodium (Docusate Sodium 100 Mg Capsule) 100 mg PO BID PRN PRN Reason: constipation Doxycycline Hyclate (Doxycycline Hyclate 100 Mg Tablet) 100 mg PO Q12H [facility] Last Admin: 11/11/21 08:55 Dose: 100 mg Documented by: Duloxetine HCl (Duloxetine Hcl 60 Mg Capsule.Dr) 60 mg PO DAILY [facility] Last Admin: 11/11/21 08:56 Dose: 60 mg Documented by: Fluticasone/Vilanterol (Fluticasone/Vilanterol 100/25 Blst.W.Dev) 1 puff INHALE RDAILY [facility] Last Admin: 11/11/21 09:06 Dose: Not Given Documented by: Gabapentin (Gabapentin 600 Mg Tablet) 600 mg PO BID [facility] Last Admin: 11/11/21 09:05 Dose: 600 mg Documented by: Hydroxyzine HCl (Hydroxyzine Hcl 25 Mg Tablet) 25 mg PO BEDTIME PRN PRN Reason: Anxiety Ibuprofen (Ibuprofen 800 Mg Tablet) 800 mg PO Q8H PRN PRN Reason: Pain, Moderate (Pain Scale 4-6 Last Admin: 11/10/21 13:08 Dose: 800 mg Documented by: Magnesium Hydroxide (Milk Of Magnesia 30 Ml Oral.Susp) 30 ml PO DAILY PRN PRN Reason: Constipation Melatonin (Melatonin 3 Mg Tablet) 6 mg PO BEDTIME PRN PRN Reason: Insomnia Last Admin: 11/10/21 20:48 Dose: 6 mg Documented by: Midodrine (Midodrine Hcl 5 Mg Tablet) 5 mg PO TIDWM [facility] Last Admin: 11/11/21 08:55 Dose: 5 mg Documented by: Omeprazole (Omeprazole 20 Mg Capsule.Dr) 20 mg PO DAILY@0630 [facility] Last Admin: 11/11/21 06:41 Dose: Not Given Documented by: Propranolol HCl (Propranolol Hcl 10 Mg Tablet) 10 mg PO TID [facility]; Protocol Last Admin: 11/11/21 09:05 Dose: Not Given Documented by: Quetiapine Fumarate (Quetiapine Fumarate 25 Mg Tablet) 25 mg PO BID [facility] Last Admin: 11/11/21 08:55 Dose: 25 mg Documented by: Trazodone HCl (Trazodone Hcl 50 Mg Tablet) 50 mg PO BEDTIME PRN PRN Reason: Insomnia Allergies Allergies Allergy/AdvReac Type Severity Reaction Status Date / Time albuterol AdvReac Palpitation Verified 11/01/21 20:16 s Assessment & Plan Assessment & Plan (1) Delusional disorder: Status: Acute Code(s): F22 - Delusional disorders (2) Acute paranoia: Status: Acute Code(s): F22 - Delusional disorders (3) Suicidal ideation: Status: Acute Code(s): R45.851 - Suicidal ideations Plan 56 yo female, hx of PTSD, Delusional disorder. Recent admission to [facility] with medication changes that she reports have been helping. Recent increase in sx of SI with plan to go [place] a river and increase in paranoia and delusional content. Reports feeling that she will run out of meds before her first psychopharmacology appt 11/19. Plan: Observation [place] building Education regarding sx mgt-medicine changes as needed. Review diagnostics Collateral contacts 11/10/21 Continue current plan. 11/11/21 Hold Propranolol due to orthostasis I spent minutes with the patient and/or on the patient floor today, greater than?50% of which was spent counseling/coordinating care. Patient educated on: medication risk/benefits and therapeutic strategies Informed Consent: further education needed Reason for contiued inpatient stay Substantial Risk for: inability to function, rapid decompensation and med/psych decompensation
[2021-11-11] MEDS: Ibuprofen 800 MG TABLET PO (14:01)
--- NOTE | 2021-11-11 14:06 | HO.PM.IMCN ---
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 After she was medically stable, she was transferred to . Re-consult requested for dizziness and hypotension. Pt is seen and examined in the unit. She was ambulating in the hallway and able to walk the length (probably about 100 yards or so) of the hallway without any dizziness or syncope. She did have an abnormal gait, which she endorsed is chronic secondary to her stiff person syndrome diagnosis. She reports that she used to live with significantly elevated HTN, with readings in the 180s. She reports that her BP improved and she was off all antihypertensives for the past several years, only to be restarted on metoprolol + norvasc earlier this year. She reports a diagnosis of vertigo for several years. She reports that dramamine has worked for. She reports the current dizziness she is experiencing is different that her vertigo. She reports that yesterday evening, she stood up from a supine position and quickly walked over to the bathroom. She felt as if she was going to pass out (but denies any LOC). She denies any current dizziness. No palpitations or chest pain Review of Systems Review of Systems: negative except HPI [facility] Medical History Bowel perforation Depression Hypertension Lupus Stiff-man syndrome Family History (Updated 11/03/21 @ 16:07 by Indigo Rothman NP) Paternal Grandmother TB (pulmonary tuberculosis) Father FH: HTN (hypertension) Surgical History History of cholecystectomy History of mandibular surgery Social History (Updated 11/03/21 @ 16:06 by Indigo Rothman NP) Household Members: Family Housing: House Do you presently have visiting nurse or other home services: No Alcohol intake: never Patient Tobacco Use Status: Current everyday Tobacco user Tobacco use type: Cigarette Cigarette Packs Per Day: 5 e-Cigarette/Vaping Use: Never Used Second Hand Smoke Exposure: No Use of substances other than those prescribed or required for medical reasons: Yes Substance Use Type: Marijuana Currently Displaying Signs/Symptoms of Drug Intoxication Withdrawal: No Have you been hit, kicked, punched, or otherwise hurt by someone within the past year? If so, by whom?: No Do you feel safe in your current relationship?: No Is there a partner from a previous relationship who is making you feel unsafe now?: No Are you made to feel afraid or neglected: No Advance Directives: No Advance Directives Information Provided: No Do you have thoughts of harming others: None Do you have a plan to hurt others: No Plan Recently lost weight without trying: Unsure Eating poorly because of decreased appetite: Yes service: No Sexual orientation: Straight/Heterosexual Meds Allergies Allergy/AdvReac Type Severity Reaction Status Date / Time albuterol AdvReac Palpitation Verified 11/01/21 20:16 s Active Medications: Current Medications Acetaminophen (Acetaminophen 325 Mg Tablet) 650 mg PO Q6H PRN PRN Reason: Headache/Pain Mild Scale (1-3) Al Hydroxide/Mg Hydroxide (Magnesium Hydrox/Alum Hydrox 30 Ml Oral.Susp) 30 ml PO Q6H PRN PRN Reason: Heartburn/Nausea Aspirin (Aspirin 81 Mg Tab.Chew) 81 mg PO DAILY [facility] Last Admin: 11/11/21 08:56 Dose: 81 mg Documented by: Baclofen (Baclofen 10 Mg Tablet) 10 mg PO BID PRN PRN Reason: spasticity Last Admin: 11/07/21 20:35 Dose: 10 mg Documented by: Cefuroxime Axetil (Cefuroxime Axetil 500 Mg Tablet) 500 mg PO Q12H [facility] Stop: 11/12/21 20:59 Last Admin: 11/11/21 08:56 Dose: 500 mg Documented by: Diazepam (Diazepam 5 Mg Tablet) 5 mg PO DAILY [facility] Last Admin: 11/11/21 08:55 Dose: 5 mg Documented by: Diazepam (Diazepam 5 Mg Tablet) 10 mg PO BEDTIME [facility] Last Admin: 11/10/21 20:10 Dose: 10 mg Documented by: Docusate Sodium (Docusate Sodium 100 Mg Capsule) 100 mg PO BID PRN PRN Reason: constipation Doxycycline Hyclate (Doxycycline Hyclate 100 Mg Tablet) 100 mg PO Q12H [facility] Last Admin: 11/11/21 08:55 Dose: 100 mg Documented by: Duloxetine HCl (Duloxetine Hcl 60 Mg Capsule.) 60 mg PO DAILY [facility] Last Admin: 11/11/21 08:56 Dose: 60 mg Documented by: Fluticasone/Vilanterol (Fluticasone/Vilanterol 100/25 Blst.W.Dev) 1 puff INHALE RDAILY [facility] Last Admin: 11/11/21 09:06 Dose: Not Given Documented by: Gabapentin (Gabapentin 600 Mg Tablet) 600 mg PO BID [facility] Last Admin: 11/11/21 09:05 Dose: 600 mg Documented by: Hydroxyzine HCl (Hydroxyzine Hcl 25 Mg Tablet) 25 mg PO BEDTIME PRN PRN Reason: Anxiety Ibuprofen (Ibuprofen 800 Mg Tablet) 800 mg PO Q8H PRN PRN Reason: Pain, Moderate (Pain Scale 4-6 Last Admin: 11/11/21 14:01 Dose: 800 mg Documented by: Magnesium Hydroxide (Milk Of Magnesia 30 Ml Oral.Susp) 30 ml PO DAILY PRN PRN Reason: Constipation Melatonin (Melatonin 3 Mg Tablet) 6 mg PO BEDTIME PRN PRN Reason: Insomnia Last Admin: 11/10/21 20:48 Dose: 6 mg Documented by: Midodrine (Midodrine Hcl 5 Mg Tablet) 5 mg PO TIDWM [facility] Last Admin: 11/11/21 13:58 Dose: 5 mg Documented by: Omeprazole (Omeprazole 20 Mg Capsule.) 20 mg PO DAILY@0630 [facility] Last Admin: 11/11/21 06:41 Dose: Not Given Documented by: Propranolol HCl (Propranolol Hcl 10 Mg Tablet) 10 mg PO TID [facility]; Protocol Last Admin: 11/11/21 09:05 Dose: Not Given Documented by: Quetiapine Fumarate (Quetiapine Fumarate 25 Mg Tablet) 25 mg PO BID [facility] Last Admin: 11/11/21 08:55 Dose: 25 mg Documented by: Trazodone HCl (Trazodone Hcl 50 Mg Tablet) 50 mg PO BEDTIME PRN PRN Reason: Insomnia Home Medications Medication Instructions Recorded Confirmed Last Taken Type aspirin 81 mg chewable tablet 1 tab PO DAILY 11/01/21 11/01/21 Unknown History baclofen 10 mg tablet 1 tab PO BID PRN 11/01/21 11/01/21 Unknown History diazepam 5 mg tablet 5 mg PO DAILY 11/01/21 11/01/21 Unknown History diazepam 5 mg tablet 10 mg PO BEDTIME 11/01/21 11/01/21 Unknown History docusate sodium 100 mg capsule 1 cap PO BID PRN 11/01/21 11/01/21 Unknown History duloxetine 60 mg capsule,delayed 1 cap PO DAILY 11/01/21 11/01/21 Unknown History release fluticasone 250 mcg-salmeterol 50 1 inh PO BID 11/01/21 11/01/21 Unknown History mcg/dose blistr powdr for inhalation (Advair Diskus) gabapentin 600 mg tablet 1 tab PO BID 11/01/21 11/01/21 Unknown History pantoprazole 20 mg tablet,delayed 1 tab PO DAILY 11/01/21 11/01/21 Unknown History release quetiapine 25 mg tablet 1 tab PO BID 11/01/21 11/01/21 Unknown History ibuprofen 800 mg tablet 1 tab PO Q8H PRN 11/02/21 11/02/21 Unknown History Physical Exam Vital Signs and Narrative: Vital Signs: Last Vital Signs Temp 98.0 F 11/11/21 06:00 Pulse 53 11/11/21 06:00 Resp 16 11/11/21 06:00 BP 97/52 L 11/11/21 06:00 Pulse Ox 99 11/11/21 06:00 BMI result Body Mass Index 19.5 Const: Other: General - no acute distress, appears comfortable Cardiovascular - regular rate and rhythm, S1-S2 Lungs - normal respiratory effort, clear to auscultation bilaterally, no wheezing Abdomen - soft, nontender, no rebound or guarding Extremities - no edema bilaterally Neuro - awake and alert; CN 2-12 intact; no nystagus appreciated Results Imaging Radiologist's Impressions: Impressions Head CT 11/11/21 13:29 IMPRESSION: No acute intracranial pathology. Assessment and Plan Plan 56 yo F with a recent diagnosis of orthostatic hypotension who is admitted to . Medical consult requested for hypotension. 1. Orthostatic hypotension from prior history as well as the events that transpired yesterday evening -- I suspect orthostatic hypotension is the culprit. Do not feel a posterior circulation stroke is the reason. Her CT brain is negative. Will increase midodrine to 10mg TID; repeat orthostatic vitals tomorrow AM furthermore, have advised behavioral modications -- sitting / standing for a few minutes after being in a prolonged supine position, compression stockings, drinking a glass of water before getting out of bed. If her orthostatic pressure remain an issue and preclude her from physical activity (which they do not appear to do
[2021-11-11] MEDS: Midodrine HCl 10 MG TABLET PO (18:46)
[2021-11-11] MEDS: diazePAM 5 MG TABLET 10 MG PO (20:54)
[2021-11-11] MEDS: traZODone HCL 50 MG TABLET PO (20:57)
[2021-11-11 21:10] VITALS: BP 106/20; PULSE 53; TEMP 36.7
[2021-11-12 06:00] VITALS: BP 93/51; PULSE 52; RESP 16; TEMP 36.5; O2SAT 95
[2021-11-12] MEDS: Gabapentin 600 MG TABLET PO ×2 (09:13→20:18)
[2021-11-12] MEDS: Ibuprofen 800 MG TABLET PO ×2 (09:13→18:13)
[2021-11-12] MEDS: diazePAM 5 MG TABLET PO ×2 (09:13→20:22)
[2021-11-12] MEDS: DULoxetine HCl 60 MG CAPSULE.DR PO (09:13)
[2021-11-12] MEDS: Midodrine HCl 10 MG TABLET PO ×3 (09:13→18:13)
[2021-11-12] MEDS: Aspirin 81 MG TAB.CHEW PO (09:13)
[2021-11-12] MEDS: QUEtiapine Fumarate 25 MG TABLET PO ×2 (09:13→20:18)
[2021-11-12 10:27] LABS: Alanine Aminotransferase < 6 U/L (0-31); Alkaline Phosphatase 69 U/L (39-117); Anion Gap 11 (12-20); Aspartate Amino Transferase 12 U/L (5-31); Bilirubin Total 0.2 mg/dL (0.0-1.0); Blood Urea Nitrogen 23 mg/dL (9-16); Calcium 8.8 mg/dL (8.4-10.2); Carbon Dioxide 31 mmol/L (22-29); Chloride 104 mmol/L (96-108); Creatinine Clr Calc Pharmacy 70.8; Estimated Glomerular Filt Rate > 60; Glucose Random 112 mg/dL (60-115); Potassium 4.2 mmol/L (3.3-5.1); Sodium 142 mmol/L (135-145); Total Protein 4.9 g/dL (6.5-8.0)
[2021-11-12 10:56] LABS: MANUAL DIFF FLAG NO
[2021-11-12 10:58] LABS: Basophils Percent Auto 0.5 % (0-2); Eosinophils Absolute Auto 0.1 X10*3/uL (0.0-0.4); Eosinophils Percent Auto 2.5 % (0-4); Hematocrit 29.5 % (37.0-47.0); Hemoglobin 9.5 g/dl (12.0-16.0); Imm Gran Abs Auto 0.02 X10*3/uL (0.00-0.03); Imm Gran Pct Auto 0.5 % (0.0-0.4); Lymphocytes Absolute Auto 1.2 X10*3/uL (1.2-4.9); Lymphocytes Percent Auto 26.6 % (20-40); Mean Corpuscular HGB Conc 32.2 g/dl (31.0-35.0); Mean Corpuscular Hemoglobin 30.3 pg (27.0-33.0); Mean Corpuscular Volume 93.9 fL (80.0-98.0); Mean Platelet Volume 9.1 fL (9.4-12.3); Monocytes Absolute Auto 0.3 X10*3/uL (0.1-1.2); Monocytes Percent Auto 6.4 % (2-11); Neutrophils Absolute Auto 2.8 x10*3/uL (2.0-8.3); Neutrophils Percent Auto 63.5 % (45-73); Platelet Count 257 X10*3/uL (160-400); Red Blood Count 3.14 X10*6/uL (4.20-5.50); Red Cell Distribution Width 12.9 % (11.0-16.0); White Blood Count 4.4 X10*3/uL (4.8-10.8)
[2021-11-12 16:10] VITALS: BP 104/57; PULSE 54; TEMP 36.9; O2SAT 97
--- NOTE | 2021-11-12 17:09 | P.PNPSI_ITS ---
Subjective Subjective Date of Service: 11/12/21 Reason For Visit: PTSD Subjective Notes: Conditional Voluntary Healthcare Proxy: No Guardianship: No Medical Problems Affecting Mental Status: Yes Interim History: Pt this a.m. reporting flank/back pain, identifies pain in kidneys. Labs/renal us ordered-results pending. Later in the day, pt reporting pain to be resolved. Spent the day in bed, resting. Again reports medical sx as current issues. Denies SI-plan or intent. Reports depressive sx related to medical sx. No overt paranoia in our discussions today. BP 93/51 52 and 104/57 54. Medication Compliance: Yes Side effects from medications: Yes (hypotension) Attending Groups: No Review of Systems Acute medical concerns: Yes Neutropenia, anemia, hypotension elevated BUN, CrCl 70.8 Urine 2+protein 3+blood, RBC 15-29 Medical Review of Systems: changed Review of Systems: orthostasis improving Review of Systems Constitutional: Reports fatigue, Reports lethargy and Reports malaise Psychiatric: Reports depression and Reports suicidal ideation (denies) Endocrine: Reports fatigue Mental Status Exam Mental Status Exam Patient Appearance: Fatigued Patient Orientation: Person, Place, Time and Situation Level of Consciousness: Alert Patient Behavior: Talkative and Good Eye Contact Mood Description: Flat Affect Description: Flat Patient Cognition Impaired: No Ability to Follow Directions: Good Speech Pattern: Spontaneous Speech and Soft-Spoken Memory Description: Intact Hallucinations: None Delusions: Not Present Thought Process: Intact and Distracted Thought Content: positive for Intact, positive for [place], positive for Circumstantial and positive for Suicidal Ideation (denies) Depressive Symptoms: Increased Anxiety and Thoughts of /Suicide (denies) Judgement: Fair Diagnostics Vital Signs (24Hr): Vital Signs - 24 hr 11/11/21 21:10 11/12/21 06:00 11/12/21 16:10 Temperature 98.0 F 97.7 F 98.5 F Pulse Rate 53 52 54 Respiratory Rate 16 Blood Pressure 106/20 L 93/51 L 104/57 L Pulse Oximetry 95 97 BMI result Body Mass Index 19.5 Labs Results: 11/12/21 10:45 11/12/21 09:51 Labs: Laboratory Results - last 48 hr 11/12/21 11/12/21 09:51 10:45 WBC 4.4 L RBC 3.14 L Hgb 9.5 L Hct 29.5 L MCV 93.9 MCH 30.3 MCHC 32.2 RDW 12.9 Plt Count 257 MPV 9.1 L Immature Gran % (Auto) 0.5 H Neut % (Auto) 63.5 Lymph % (Auto) 26.6 Finney % (Auto) 6.4 Eos % (Auto) 2.5 Baso % (Auto) 0.5 Lymph # (Auto) 1.2 [place]ney # (Auto) 0.3 Eos # (Auto) 0.1 Baso # (Auto) 0.0 Abs Immat Gran (auto) 0.02 Absolute Neuts (auto) 2.8 Absolute Nucleated RBC 0.000 Nucleated RBC % (auto) 0.0 Sodium 142 Potassium 4.2 Chloride 104 Carbon Dioxide 31 H Anion Gap 11 L BUN 23 H D Creatinine 0.69 Estim Creat Clear Calc 70.8 Estimated GFR > 60 Random Glucose 112 Calcium 8.8 D Total Bilirubin 0.2 AST 12 ALT < 6 Alkaline Phosphatase 69 D Total Protein 4.9 L Albumin 3.0 L Imaging Radiology Impressions: ITS Impressions Head CT 11/11/21 13:29 IMPRESSION: No acute intracranial pathology. Medications Medications Current Medications Acetaminophen (Acetaminophen 325 Mg Tablet) 650 mg PO Q6H PRN PRN Reason: Headache/Pain Mild Scale (1-3) Al Hydroxide/Mg Hydroxide (Magnesium Hydrox/Alum Hydrox 30 Ml Oral.Susp) 30 ml PO Q6H PRN PRN Reason: Heartburn/Nausea Aspirin (Aspirin 81 Mg Tab.Chew) 81 mg PO DAILY [facility] Last Admin: 11/12/21 09:13 Dose: 81 mg Documented by: Baclofen (Baclofen 10 Mg Tablet) 10 mg PO BID PRN PRN Reason: spasticity Last Admin: 11/07/21 20:35 Dose: 10 mg Documented by: Cefuroxime Axetil (Cefuroxime Axetil 500 Mg Tablet) 500 mg PO Q12H [facility] Stop: 11/12/21 20:59 Last Admin: 11/12/21 09:13 Dose: 500 mg Documented by: Diazepam (Diazepam 5 Mg Tablet) 5 mg PO DAILY [facility] Last Admin: 11/12/21 09:13 Dose: 5 mg Documented by: Diazepam (Diazepam 5 Mg Tablet) 10 mg PO BEDTIME [facility] Last Admin: 11/11/21 20:54 Dose: 10 mg Documented by: Docusate Sodium (Docusate Sodium 100 Mg Capsule) 100 mg PO BID PRN PRN Reason: constipation Doxycycline Hyclate (Doxycycline Hyclate 100 Mg Tablet) 100 mg PO Q12H [facility] Last Admin: 11/12/21 09:21 Dose: 100 mg Documented by: Duloxetine HCl (Duloxetine Hcl 60 Mg Capsule.) 60 mg PO DAILY [facility] Last Admin: 11/12/21 09:13 Dose: 60 mg Documented by: Fluticasone/Vilanterol (Fluticasone/Vilanterol 100/25 Blst.W.Dev) 1 puff INHALE RDAILY [facility] Last Admin: 11/12/21 08:04 Dose: Not Given Documented by: Gabapentin (Gabapentin 600 Mg Tablet) 600 mg PO BID [facility] Last Admin: 11/12/21 09:13 Dose: 600 mg Documented by: Hydroxyzine HCl (Hydroxyzine Hcl 25 Mg Tablet) 25 mg PO BEDTIME PRN PRN Reason: Anxiety Ibuprofen (Ibuprofen 800 Mg Tablet) 800 mg PO Q8H PRN PRN Reason: Pain, Moderate (Pain Scale 4-6 Last Admin: 11/12/21 09:13 Dose: 800 mg Documented by: Magnesium Hydroxide (Milk Of Magnesia 30 Ml Oral.Susp) 30 ml PO DAILY PRN PRN Reason: Constipation Melatonin (Melatonin 3 Mg Tablet) 6 mg PO BEDTIME PRN PRN Reason: Insomnia Last Admin: 11/10/21 20:48 Dose: 6 mg Documented by: Midodrine (Midodrine Hcl 10 Mg Tablet) 10 mg PO TIDWM [facility] Last Admin: 11/12/21 13:10 Dose: 10 mg Documented by: Omeprazole (Omeprazole 20 Mg Capsule.) 20 mg PO DAILY@0630 [facility] Last Admin: 11/12/21 06:34 Dose: Not Given Documented by: Propranolol HCl (Propranolol Hcl 10 Mg Tablet) 10 mg PO TID [facility]; Protocol Last Admin: 11/11/21 09:05 Dose: Not Given Documented by: Quetiapine Fumarate (Quetiapine Fumarate 25 Mg Tablet) 25 mg PO BID [facility] Last Admin: 11/12/21 09:13 Dose: 25 mg Documented by: Trazodone HCl (Trazodone Hcl 50 Mg Tablet) 50 mg PO BEDTIME PRN PRN Reason: Insomnia Last Admin: 11/11/21 20:57 Dose: 50 mg Documented by: Allergies Allergies Allergy/AdvReac Type Severity Reaction Status Date / Time albuterol AdvReac Palpitation Verified 11/01/21 20:16 s Assessment & Plan Assessment & Plan (1) Delusional disorder: Status: Acute Code(s): F22 - Delusional disorders (2) Acute paranoia: Status: Acute Code(s): F22 - Delusional disorders (3) Suicidal ideation: Status: Acute Code(s): R45.851 - Suicidal ideations Plan Decrease Valium to 5 mg bid due to orthostasis and sedation Re-start Propranolol at 10 mg bid Monitor medical symptoms. I spent minutes with the patient and/or on the patient floor today, greater than?50% of which was spent counseling/coordinating care. Patient educated on: medical condition and other Informed Consent: understands and further education needed Reason for contiued inpatient stay Substantial Risk for: med/psych decompensation
[2021-11-12] MEDS: diazePAM 5 MG TABLET 10 MG PO (20:18)
[2021-11-12] MEDS: traZODone HCL 50 MG TABLET PO (20:22)
[2021-11-12] MEDS: Baclofen 10 MG TABLET PO (20:22)
[2021-11-13 06:39] VITALS: BP 89/52; PULSE 48; RESP 18; TEMP 36.3; O2SAT 98
[2021-11-13] MEDS: Ibuprofen 800 MG TABLET PO ×2 (09:08→21:00)
[2021-11-13] MEDS: QUEtiapine Fumarate 25 MG TABLET PO ×2 (09:09→20:58)
[2021-11-13] MEDS: Gabapentin 600 MG TABLET PO ×2 (09:09→21:04)
[2021-11-13] MEDS: Aspirin 81 MG TAB.CHEW PO (09:09)
[2021-11-13] MEDS: Midodrine HCl 10 MG TABLET PO ×3 (09:09→17:05)
[2021-11-13] MEDS: diazePAM 5 MG TABLET PO ×2 (09:09→20:57)
[2021-11-13 18:00] VITALS: BP 83/51; PULSE 51; RESP 18; TEMP 37; O2SAT 90
--- NOTE | 2021-11-13 18:03 | HO.PSYCHPN ---
Subjective Subjective Date of Service: 11/13/21 Reason For Visit: PTSD Subjective Notes: Conditional Voluntary Healthcare Proxy: No Guardianship: No Medical Problems Affecting Mental Status: No Interim History: Pt reports feeling significant improvement today. Planning discharge for 11/15. Discussed with pt being new to the area and having most of her care with [facility] [place] [place]-who we could call to discuss her symptoms/diagnostics to better obtain baseline information. Pt reports she has only been seen by residents-her resident has just left and she will be assigned another resident should she need to go for another infusion. She will be staying locally. She asks if I can refer her to neurology and renal at [facility] to maintain [facility] [place] [place] consistency. Discussed possibly needing SNF. Pt disagrees. She believes she can go home with follow up appts, but will consider services in home if needed. Pt is ambulating well today, eating and drinking. Denies any flank pain and reports she believes that she has been sleep deprived and was just in need of proper amounts of rest and care. Medication Compliance: Yes Side effects from medications: No (unclear, a possibility) Attending Groups: Yes Review of Systems Acute medical concerns: No Medical Review of Systems: unchanged Review of Systems Psychiatric: Reports no additional psychiatric complaints and Reports suicidal ideation (denies) Diagnostics Vital Signs (24Hr): Vital Signs - 24 hr 11/13/21 06:39 Temperature 97.4 F Pulse Rate 48 L Respiratory Rate 18 Blood Pressure 89/52 L Pulse Oximetry 98 BMI result Body Mass Index 19.5 Labs Results: 11/12/21 10:45 11/12/21 09:51 Labs: Laboratory Results - last 48 hr 11/12/21 11/12/21 09:51 10:45 WBC 4.4 L RBC 3.14 L Hgb 9.5 L Hct 29.5 L MCV 93.9 MCH 30.3 MCHC 32.2 RDW 12.9 Plt Count 257 MPV 9.1 L Immature Gran % (Auto) 0.5 H Neut % (Auto) 63.5 Lymph % (Auto) 26.6 [place] % (Auto) 6.4 Eos % (Auto) 2.5 Baso % (Auto) 0.5 Lymph # (Auto) 1.2 [place] # (Auto) 0.3 Eos # (Auto) 0.1 Baso # (Auto) 0.0 Abs Immat Gran (auto) 0.02 Absolute Neuts (auto) 2.8 Absolute Nucleated RBC 0.000 Nucleated RBC % (auto) 0.0 Sodium 142 Potassium 4.2 Chloride 104 Carbon Dioxide 31 H Anion Gap 11 L BUN 23 H D Creatinine 0.69 Estim Creat Clear Calc 70.8 Estimated GFR > 60 Random Glucose 112 Calcium 8.8 D Total Bilirubin 0.2 AST 12 ALT < 6 Alkaline Phosphatase 69 D Total Protein 4.9 L Albumin 3.0 L Imaging Radiology Impressions: ITS Impressions Head CT 11/11/21 13:29 IMPRESSION: No acute intracranial pathology. Renal Ultrasound 11/12/21 17:02 IMPRESSION: No stone seen. 3.7 x 2.6 x 3.3 cm minimally complex right renal cyst. Medications Medications Current Medications Acetaminophen (Acetaminophen 325 Mg Tablet) 650 mg PO Q6H PRN PRN Reason: Headache/Pain Mild Scale (1-3) Al Hydroxide/Mg Hydroxide (Magnesium Hydrox/Alum Hydrox 30 Ml Oral.Susp) 30 ml PO Q6H PRN PRN Reason: Heartburn/Nausea Aspirin (Aspirin 81 Mg Tab.Chew) 81 mg PO DAILY [facility] Last Admin: 11/13/21 09:09 Dose: 81 mg Baclofen (Baclofen 10 Mg Tablet) 10 mg PO BID PRN PRN Reason: spasticity Last Admin: 11/12/21 20:22 Dose: 10 mg Diazepam (Diazepam 5 Mg Tablet) 5 mg PO BID [facility] Last Admin: 11/13/21 09:09 Dose: 5 mg Docusate Sodium (Docusate Sodium 100 Mg Capsule) 100 mg PO BID PRN PRN Reason: constipation Doxycycline Hyclate (Doxycycline Hyclate 100 Mg Tablet) 100 mg PO Q12H [facility] Last Admin: 11/13/21 09:09 Dose: 100 mg Duloxetine HCl (Duloxetine Hcl 60 Mg Capsule.Dr) 60 mg PO DAILY [facility] Last Admin: 11/13/21 09:18 Dose: Not Given Fluticasone/Vilanterol (Fluticasone/Vilanterol 100/25 Blst.W.Dev) 1 puff INHALE RDAILY [facility] Last Admin: 11/13/21 09:09 Dose: Not Given Gabapentin (Gabapentin 600 Mg Tablet) 600 mg PO BID [facility] Last Admin: 11/13/21 09:09 Dose: 600 mg Hydroxyzine HCl (Hydroxyzine Hcl 25 Mg Tablet) 25 mg PO BEDTIME PRN PRN Reason: Anxiety Ibuprofen (Ibuprofen 800 Mg Tablet) 800 mg PO Q8H PRN PRN Reason: Pain, Moderate (Pain Scale 4-6 Last Admin: 11/13/21 09:08 Dose: 800 mg Magnesium Hydroxide (Milk Of Magnesia 30 Ml Oral.Susp) 30 ml PO DAILY PRN PRN Reason: Constipation Melatonin (Melatonin 3 Mg Tablet) 6 mg PO BEDTIME PRN PRN Reason: Insomnia Last Admin: 11/10/21 20:48 Dose: 6 mg Midodrine (Midodrine Hcl 10 Mg Tablet) 10 mg PO TIDWM [facility] Last Admin: 11/13/21 17:05 Dose: 10 mg Omeprazole (Omeprazole 20 Mg Capsule.Dr) 20 mg PO DAILY@0630 [facility] Last Admin: 11/13/21 09:09 Dose: Not Given Propranolol HCl (Propranolol Hcl 10 Mg Tablet) 10 mg PO BID [facility]; Protocol Quetiapine Fumarate (Quetiapine Fumarate 25 Mg Tablet) 25 mg PO BID [facility] Last Admin: 11/13/21 09:09 Dose: 25 mg Trazodone HCl (Trazodone Hcl 50 Mg Tablet) 50 mg PO BEDTIME PRN PRN Reason: Insomnia Last Admin: 11/12/21 20:22 Dose: 50 mg Allergies Allergies Allergy/AdvReac Type Severity Reaction Status Date / Time albuterol AdvReac Palpitation Verified 11/01/21 20:16 s Assessment & Plan Assessment & Plan (1) Delusional disorder: Status: Acute Code(s): F22 - Delusional disorders (2) Acute paranoia: Status: Acute Code(s): F22 - Delusional disorders (3) Suicidal ideation: Status: Acute Code(s): R45.851 - Suicidal ideations Plan Decrease Valium to 5 mg bid due to orthostasis and sedation Re-start Propranolol at 10 mg bid Monitor medical symptoms. 11/13/21- Continue current regime Discharge planning No sx of acute psychosis I spent minutes with the patient and/or on the patient floor today, greater than?50% of which was spent counseling/coordinating care. Patient educated on: medication risk/benefits and therapeutic strategies Informed Consent: understands and further education needed Reason for contiued inpatient stay Substantial Risk for: med/psych decompensation
[2021-11-13] MEDS: Baclofen 10 MG TABLET PO (21:06)
[2021-11-14 06:42] VITALS: BP 123/60; PULSE 56; RESP 16; TEMP 36.3; O2SAT 94
[2021-11-14 07:00] VITALS: BMI 21.7
[2021-11-14] MEDS: Aspirin 81 MG TAB.CHEW PO (09:44)
[2021-11-14] MEDS: QUEtiapine Fumarate 25 MG TABLET PO ×2 (09:44→21:16)
[2021-11-14] MEDS: Ibuprofen 800 MG TABLET PO ×2 (09:44→21:19)
[2021-11-14] MEDS: Gabapentin 600 MG TABLET PO ×2 (09:44→21:15)
[2021-11-14] MEDS: diazePAM 5 MG TABLET PO ×2 (09:44→21:16)
[2021-11-14] MEDS: Midodrine HCl 10 MG TABLET PO ×3 (09:45→18:29)
[2021-11-14] MEDS: Acetaminophen 325 MG TABLET 650 MG PO (14:33)
[2021-11-14] MEDS: Baclofen 10 MG TABLET PO ×2 (14:33→21:15)
--- NOTE | 2021-11-14 14:45 | HO.PSYCHPN ---
Subjective Subjective Date of Service: 11/14/21 Reason For Visit: PTSD Subjective Notes: Conditional Voluntary Healthcare Proxy: No Guardianship: No Medical Problems Affecting Mental Status: No Interim History: Lawanda reports feeling much better and is looking forward to discharge on 11/15. She has decided to stop Cymbalta. Discussed potential withdrawal syndrome and symptoms. She reports she has never experience these in the past and is not concerned about these. She is not interested in a taper at this time but agreed she will call should symptoms develop so we may implement a tapering plan for her. We reviewed all of her diagnostics and interpretations, including her anemia-she reports a very long history of anemia and currently has no questions-review of imaging, ultrasound and all labs that have been out of range. She verbalizes understanding. She discussed being in process of transitioning care from [facility] to [facility]. She agrees to [facility] referral for assistance and will be working on this transition with them. 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: unchanged Review of Systems Psychiatric: Reports no additional psychiatric complaints Mental Status Exam Mental Status Exam Patient Appearance: Appropriate Patient Orientation: Person, Place, Time and Situation Level of Consciousness: Alert Patient Behavior: Talkative and Good Eye Contact Mood Description: Appropriate Affect Description: Appropriate Patient Cognition Impaired: No Ability to Follow Directions: Good Speech Pattern: Spontaneous Speech and Soft-Spoken Memory Description: Intact Hallucinations: None Delusions: Not Present Thought Process: Intact and Goal Oriented Thought Content: positive for Intact, positive for [place], positive for Circumstantial, positive for Goal Oriented and positive for Suicidal Ideation (denies) Depressive Symptoms: Thoughts of /Suicide (denies) Judgement: Good Diagnostics Vital Signs (24Hr): Vital Signs - 24 hr 11/13/21 18:00 11/14/21 06:42 Temperature 98.6 F 97.4 F Pulse Rate 51 56 Respiratory Rate 18 16 Blood Pressure 83/51 L 123/60 Pulse Oximetry 90 L 94 Oxygen Delivery Method Room Air Room Air BMI result Body Mass Index 21.7 Labs Results: 11/12/21 10:45 11/12/21 09:51 Imaging Radiology Impressions: ITS Impressions Head CT 11/11/21 13:29 IMPRESSION: No acute intracranial pathology. Renal Ultrasound 11/12/21 17:02 IMPRESSION: No stone seen. 3.7 x 2.6 x 3.3 cm minimally complex right renal cyst. Medications Medications Current Medications Acetaminophen (Acetaminophen 325 Mg Tablet) 650 mg PO Q6H PRN PRN Reason: Headache/Pain Mild Scale (1-3) Last Admin: 11/14/21 14:33 Dose: 650 mg Al Hydroxide/Mg Hydroxide (Magnesium Hydrox/Alum Hydrox 30 Ml Oral.Susp) 30 ml PO Q6H PRN PRN Reason: Heartburn/Nausea Aspirin (Aspirin 81 Mg Tab.Chew) 81 mg PO DAILY [facility] Last Admin: 11/14/21 09:44 Dose: 81 mg Baclofen (Baclofen 10 Mg Tablet) 10 mg PO BID PRN PRN Reason: spasticity Last Admin: 11/14/21 14:33 Dose: 10 mg Diazepam (Diazepam 5 Mg Tablet) 5 mg PO BID [facility] Last Admin: 11/14/21 09:44 Dose: 5 mg Docusate Sodium (Docusate Sodium 100 Mg Capsule) 100 mg PO BID PRN PRN Reason: constipation Doxycycline Hyclate (Doxycycline Hyclate 100 Mg Tablet) 100 mg PO Q12H [facility] Last Admin: 11/14/21 09:44 Dose: 100 mg Duloxetine HCl (Duloxetine Hcl 60 Mg Capsule.Dr) 60 mg PO DAILY [facility] Last Admin: 11/14/21 09:53 Dose: Not Given Fluticasone/Vilanterol (Fluticasone/Vilanterol 100/25 Blst.W.Dev) 1 puff INHALE RDAILY [facility] Last Admin: 11/14/21 07:53 Dose: Not Given Gabapentin (Gabapentin 600 Mg Tablet) 600 mg PO BID [facility] Last Admin: 11/14/21 09:44 Dose: 600 mg Hydroxyzine HCl (Hydroxyzine Hcl 25 Mg Tablet) 25 mg PO BEDTIME PRN PRN Reason: Anxiety Ibuprofen (Ibuprofen 800 Mg Tablet) 800 mg PO Q8H PRN PRN Reason: Pain, Moderate (Pain Scale 4-6 Last Admin: 11/14/21 09:44 Dose: 800 mg Magnesium Hydroxide (Milk Of Magnesia 30 Ml Oral.Susp) 30 ml PO DAILY PRN PRN Reason: Constipation Melatonin (Melatonin 3 Mg Tablet) 6 mg PO BEDTIME PRN PRN Reason: Insomnia Last Admin: 11/10/21 20:48 Dose: 6 mg Midodrine (Midodrine Hcl 10 Mg Tablet) 10 mg PO TIDWM [facility] Last Admin: 11/14/21 13:07 Dose: 10 mg Omeprazole (Omeprazole 20 Mg Capsule.Dr) 20 mg PO DAILY@0630 [facility] Last Admin: 11/14/21 07:53 Dose: Not Given Propranolol HCl (Propranolol Hcl 10 Mg Tablet) 10 mg PO BID [facility]; Protocol Quetiapine Fumarate (Quetiapine Fumarate 25 Mg Tablet) 25 mg PO BID [facility] Last Admin: 11/14/21 09:44 Dose: 25 mg Trazodone HCl (Trazodone Hcl 50 Mg Tablet) 50 mg PO BEDTIME PRN PRN Reason: Insomnia Last Admin: 11/12/21 20:22 Dose: 50 mg Allergies Allergies Allergy/AdvReac Type Severity Reaction Status Date / Time albuterol AdvReac Palpitation Verified 11/01/21 20:16 s Assessment & Plan Assessment & Plan (1) Acute paranoia: Status: Resolved Code(s): F22 - Delusional disorders (2) Suicidal ideation: Status: Acute Code(s): R45.851 - Suicidal ideations Plan Decrease Valium to 5 mg bid due to orthostasis and sedation Re-start Propranolol at 10 mg bid Monitor medical symptoms. 11/13/21- Continue current regime Discharge planning No sx of acute psychosis 11/14/21- Discharge 11/15/21 Full review of treatment with Lawanda who verbalizes understanding. I spent minutes with the patient and/or on the patient floor today, greater than?50% of which was spent counseling/coordinating care. Patient educated on: diagnosis, medication risk/benefits, therapeutic strategies and medical condition Informed Consent: understands Reason for contiued inpatient stay Substantial Risk for: stable for discharge
[2021-11-14 21:00] VITALS: BP 129/60; PULSE 47; RESP 16; TEMP 36.1; O2SAT 99
[2021-11-14] MEDS: Melatonin 3 MG TABLET 6 MG PO (21:15)
--- NOTE | 2021-11-15 08:46 | PM.PSYDC ---
DS: Providers Provider Date of Service: 11/15/21 Date of admission: 11/07/21 18:04 Date of discharge: 11/15/21 Primary care physician: Yamil Reis MD Admitting clinician: Tessie Oreilly Attending physician on admission: Tim Grier Consults: 11/11/21 11:37 Consult to Hospitalist Routine Consulting Provider: Hospitalist Reason For Exam: Hypotensive with sx dizzy, gait dist, vertigo Attending physician on discharge: Tim Grier Discharging clinician: Tessie Oreilly DS: Diagnosis Discharge Diagnosis (1) Acute paranoia: Status: Resolved (2) Suicidal ideation: Status: Resolved DS: Medications Discharge Medications Home Medications: Home Medications Medication Instructions Recorded Confirmed aspirin 81 mg chewable tablet 1 tab PO DAILY 11/01/21 11/01/21 baclofen 10 mg tablet 1 tab PO BID PRN Muscle Spasm 11/01/21 11/01/21 docusate sodium 100 mg capsule 1 cap PO BID PRN constipation 11/01/21 11/01/21 fluticasone 250 mcg-salmeterol 50 1 inh PO BID 11/01/21 11/01/21 mcg/dose blistr powdr for inhalation (Advair Diskus) pantoprazole 20 mg tablet,delayed 1 tab PO DAILY 11/01/21 11/01/21 release ibuprofen 800 mg tablet 1 tab PO Q8H PRN Pain 11/02/21 11/02/21 Previous Rx's Medication Instructions Recorded acetaminophen 325 mg tablet 650 mg PO Q6H PRN Headache/Pain 11/15/21 Mild Scale (1-3) #0 tabs baclofen 10 mg tablet 10 mg PO BID PRN spasticity #60 11/15/21 tabs diazepam 5 mg tablet 5 mg PO DAILY #7 tabs 11/15/21 diazepam 5 mg tablet 10 mg PO BEDTIME #14 tabs 11/15/21 gabapentin 600 mg tablet 1 tab PO BID #60 tabs 11/15/21 melatonin 3 mg tablet 6 mg PO BEDTIME PRN Insomnia #60 11/15/21 tabs midodrine 10 mg tablet 10 mg PO TIDWM #90 tabs 11/15/21 propranolol 10 mg tablet 10 mg PO BID #60 tabs 11/15/21 quetiapine 25 mg tablet 25 mg PO BID #60 tabs 11/15/21 Mental Status Exam Mental Status Exam Patient Appearance: Appropriate Patient Orientation: Person, Place, Time and Situation Level of Consciousness: Alert Patient Behavior: Talkative and Good Eye Contact Mood Description: Appropriate Affect Description: Appropriate Patient Cognition Impaired: No Ability to Follow Directions: Good Speech Pattern: Spontaneous Speech and Soft-Spoken Memory Description: Intact Hallucinations: None Delusions: Not Present Thought Process: Intact and Goal Oriented Thought Content: positive for Intact, positive for [place], positive for Circumstantial, positive for Goal Oriented and positive for Suicidal Ideation (denies) Depressive Symptoms: Thoughts of /Suicide (denies) Judgement: Good Data Data Completed and Pending Completed studies during hospitalization [Text1]: 11/08/21 11/08/21 11/08/21 09:01 09:01 09:01 WBC RBC Hgb Hct MCV MCH MCHC RDW Plt Count MPV Immature Gran % (Auto) Neut % (Auto) Lymph % (Auto) [place] % (Auto) Eos % (Auto) Baso % (Auto) Lymph # (Auto) [place] # (Auto) Eos # (Auto) Baso # (Auto) Abs Immat Gran (auto) Absolute Neuts (auto) Absolute Nucleated RBC Nucleated RBC % (auto) Sodium Potassium Chloride Carbon Dioxide Anion Gap BUN Creatinine Estim Creat Clear Calc Estimated GFR Random Glucose Estimat Average Glucose 105 Hemoglobin A1c % 5.3 Calcium Total Bilirubin AST ALT Alkaline Phosphatase Total Protein Albumin Triglycerides 94 Cholesterol 169 LDL Cholesterol, Calc 123 HDL Cholesterol 28 Vitamin B12 580 Folate 6.2 TSH Free T4 11/08/21 11/08/21 11/12/21 09:01 09:01 09:51 WBC RBC Hgb Hct MCV MCH MCHC RDW Plt Count MPV Immature Gran % (Auto) Neut % (Auto) Lymph % (Auto) [place] % (Auto) Eos % (Auto) Baso % (Auto) Lymph # (Auto) [place] # (Auto) Eos # (Auto) Baso # (Auto) Abs Immat Gran (auto) Absolute Neuts (auto) Absolute Nucleated RBC Nucleated RBC % (auto) Sodium 142 Potassium 4.2 Chloride 104 Carbon Dioxide 31 H Anion Gap 11 L BUN 23 H D Creatinine 0.69 Estim Creat Clear Calc 70.8 Estimated GFR > 60 Random Glucose 112 Estimat Average Glucose Hemoglobin A1c % Calcium 8.8 D Total Bilirubin 0.2 AST 12 ALT < 6 Alkaline Phosphatase 69 D Total Protein 4.9 L Albumin 3.0 L Triglycerides Cholesterol LDL Cholesterol, Calc HDL Cholesterol Vitamin B12 Folate TSH Cancelled 0.27 L Free T4 0.93 11/12/21 10:45 WBC 4.4 L RBC 3.14 L Hgb 9.5 L Hct 29.5 L MCV 93.9 MCH 30.3 MCHC 32.2 RDW 12.9 Plt Count 257 MPV 9.1 L Immature Gran % (Auto) 0.5 H Neut % (Auto) 63.5 Lymph % (Auto) 26.6 [place] % (Auto) 6.4 Eos % (Auto) 2.5 Baso % (Auto) 0.5 Lymph # (Auto) 1.2 [place] # (Auto) 0.3 Eos # (Auto) 0.1 Baso # (Auto) 0.0 Abs Immat Gran (auto) 0.02 Absolute Neuts (auto) 2.8 Absolute Nucleated RBC 0.000 Nucleated RBC % (auto) 0.0 Sodium Potassium Chloride Carbon Dioxide Anion Gap BUN Creatinine Estim Creat Clear Calc Estimated GFR Random Glucose Estimat Average Glucose Hemoglobin A1c % Calcium Total Bilirubin AST ALT Alkaline Phosphatase Total Protein Albumin Triglycerides Cholesterol LDL Cholesterol, Calc HDL Cholesterol Vitamin B12 Folate TSH Free T4 11/12/21 Unknown Urine clean catch - Clean Catch Midstream Urine Culture - Final No growth. Imaging Diagnostic Imaging Impressions Head CT 11/11/21 13:29 IMPRESSION: No acute intracranial pathology. Renal Ultrasound 11/12/21 17:02 IMPRESSION: No stone seen. 3.7 x 2.6 x 3.3 cm minimally complex right renal cyst. DS: Summary Hospital Course Hospital Course: Admission to adult psychiatry for exacerbation of recurrent major depression, severe, PTSD and situational crisis. Pt also with Stiff Person Syndrome. Cymbalta was discontinued. Pt received medical care, team support and utilized the team and groups to process situational issues at home. Symptoms improved with this support and pt was feeling prepared to return to her home and out pt team. She is aware that she may call or return as needed. She reported feeling much improved upon discharge and is looking forward to meeting some of her new out pt providers this week. She is in process of transitioning from [facility] to [facility] for services. Time spent discussing smoking cessation with patient: 3 to 10 minutes Status at Discharge Functional status at discharge: independent ambulation Overall status at discharge: patient is progressing back to baseline Time Spent with Patient Time attestation: Total time spent providing and/or coordinating discharge services: 40 Time spent: Greater than 30 minutes Discharge Plan Discharge Patient Disposition: Home, Self-Care Discharge Diagnosis: Recurrent major depression, severe Stiff person syndrome PTSD COPD HTN Referrals: Psych Prescriber: Basim Vergara ([facility]) [Other] - 11/19/21 1:30 pm (*In office* At this appointment request therapy services ) [facility] [Other] - 1 Week (Fax- [phone]) [facility] [Other] - 1 Week (WALK IN) [facility] Flores [Other] - 02/04/22 3:30 pm (Arrive at 3:15pm Bring the following; Medical record, Insurance card and Picture ID ) Discharge Medications: New baclofen 10 mg Tablet 10 mg PO BID PRN (Reason: spasticity) Qty: 60 0RF midodrine 10 mg Tablet 10 mg PO TIDWM Qty: 90 0RF propranolol 10 mg Tablet 10 mg PO BID Qty: 60 0RF Protocol: Hold for SBP/HR < HOLD for SBP < : 90 HOLD for HR < : 60 quetiapine 25 mg Tablet 25 mg PO BID Qty: 60 0RF acetaminophen 325 mg Tablet 650 mg PO Q6H PRN (Reason: Headache/Pain Mild Scale (1-3)) Qty: 0 0RF melatonin 3 mg Tablet 6 mg PO BEDTIME PRN (Reason: Insomnia) Qty: 60 0RF Continued fluticasone propion-salmeterol [Advair Diskus] 250-50 mcg/dose blister with device 1 inh PO BID pantoprazole 20 mg tablet,delayed release (DR/EC) 1 tab PO DAILY baclofen 10 mg tablet 1 tab PO BID PRN (Reason: Muscle Spasm) docusate sodium 100 mg capsule 1 cap PO BID PRN (Reason: constipation) aspirin 81 mg tablet,chewable 1 tab PO DAILY ibuprofen 800 mg tablet 1 tab PO Q8H PRN (Reason: Pain) gabapentin 600 mg tablet 1 tab PO BID Qty: 60 0RF diazepam 5 mg tablet 10 mg PO BEDTIME Qty: 14 0RF diazepam 5 mg tablet 5 mg PO DAILY Qty: 7 0RF Discontinued quetiapine 25 mg tablet 1 tab PO BID duloxetine 60 mg capsule,delayed release(DR/EC) 1 cap PO DAILY midodrine 5 mg Tablet 5 mg PO TID Qty: 90 0RF propranolol 20 mg tablet 0.5 tab PO TID Qty: 0 0RF doxycycline hyclate 100 mg Tablet 100 mg PO Q12H Qty: 9 0RF cefuroxime axetil 500 mg tablet 500 mg PO BID Qty: 9 0RF Discharge Orders: Discharge Order (Routine); Ordered 11/15/21 Ordered By: Tessie Oreilly Diet: Advance to usual diet Activity on Discharge: As tolerated Stand Alone Forms: Patient Portal Discharge page, Community Support Care Plan Goals: Mood stabilization Health Concerns: Recurrent major depression, severe PTSD Stiff person syndrome COPD HTN Plan of Treatment: Attend scheduled appointments Take medications as directed You have made a decision to stop Cymbalta. You have asked not to taper as by history you have never experienced withdrawal effects. We have discussed potential withdrawal effects. Should you experience withdrawal effects from Cymbalta, please call so we may implement a plan to manage these. [phone]. You are in process of transferring care from [facility] to [facility] would like you to call them to choose your primary care provider [phone]-physician referral department Call/return as needed Crisis Team if needed [phone] Assessment: Risk assessment at time of discharge:? Patient was interviewed prior to discharge and found to be fully oriented and without any SI or HI. Patient is not in imminent risk of harm to self or others and has a safety plan that includes presenting to the closest ER or calling 911 if feeling unsafe.? Patient has been observed closely by nursing and unit staff; patient has not engaged in any behaviors that suggest dangerousness to self or others Discharge Date/Time: 11/15/21 14:29
[2021-11-15] MEDS: Midodrine HCl 10 MG TABLET PO (09:19)
[2021-11-15] MEDS: Fluticasone/Vilanterol 100/25 BLST.W.DEV 1 PUFF INHALE (09:20)
[2021-11-15] MEDS: Aspirin 81 MG TAB.CHEW PO (09:20)
[2021-11-15] MEDS: Gabapentin 600 MG TABLET PO (09:20)
[2021-11-15] MEDS: diazePAM 5 MG TABLET PO (09:20)
[2021-11-15] MEDS: QUEtiapine Fumarate 25 MG TABLET PO (09:20)
--- NOTE | 2021-11-15 11:15 | PC.NURSE ---
Patient is alert and oriented x4. Patient appears calm, pleasant and cooperative with care and medications. Patient aware of discharge today and reports readiness. Education/teaching and belongings provided to patient.
== END 2021-11-15 14:29 | disposition home or self-care (01) | DRG 885 ==
PROVIDERS: Admitting Provider Psychiatry & Neurology Psychiatry; PCP Emergency Medicine; Visit Provider Clinical Nurse Specialist Psychiatric/Mental Health, Adult
DX: F22 Delusional disorders (principal); R45.851 Suicidal ideations; G25.82 Stiff-man syndrome; I10 Essential (primary) hypertension; J44.9 Chronic obstructive pulmonary disease, unspecified; I95.1 Orthostatic hypotension; M32.9 Systemic lupus erythematosus, unspecified; F17.210 Nicotine dependence, cigarettes, uncomplicated; Z71.6 Tobacco abuse counseling; Z79.51 Long term (current) use of inhaled steroids; Z79.82 Long term (current) use of aspirin; Z79.899 Other long term (current) drug therapy
CPT/HCPCS: 36415; 70450; 76775; 80053; 80061; 82607; 82746; 83036; 84439; 84443; 85025; 87086

== ENCOUNTER 2021-12-24 16:34 | Inpatient (IN) | payer MEDICARE, MEDICAID, SELFPAY ==
--- NOTE | ~2021-12-24 | XR_ITS ---
EXAMINATION: XR SHOULDER, RIGHT CLINICAL INFORMATION: MRI clearance. COMPARISON: None TECHNIQUE: AP external rotation, Grashey, scapular Y views of the right shoulder. FINDINGS: There are degenerative and postsurgical changes of the right shoulder with 2 radiopaque anchors projecting over the anterior aspect of the glenoid. The shoulders and alignment. The bones are intact and there is no acute fracture. Partially visualized right lung is unremarkable. Soft tissues are otherwise unremarkable. XR/XR shoulder RT min 2V IMPRESSION: Postsurgical changes of the right shoulder with 2 radiopaque markers along the superior anterior margin of the glenoid.
--- NOTE | ~2021-12-24 | US_ITS ---
EXAMINATION: NONINVASIVE ASSESSMENT OF THE ARTERIES OF BOTH LOWER EXTREMITIES Devang Malik MD CLINICAL INFORMATION: Bilateral lower extremity TECHNIQUE: Bilateral lower extremity duplex ultrasound was performed with velocity measurements and waveform analysis in the common femoral arteries, profunda femoris arteries, proximal mid and distal superficial femoral arteries, popliteal arteries and tibial vessels. This study was performed only at rest. COMPARISON: None FINDINGS: Velocities in cm/sec and phasicity as well as the presence of plaque are reported below. No significant plaque is seen and multiphasic flow is present throughout both lower extremities RIGHT LEG: Common Femoral: 135 Profunda Femoris: 64 Proximal SFA: 132 Mid SFA: 113 Distal SFA: 99 Popliteal: 75 Posterior tibial: 85 LEFT LEG: Common Femoral: 140 Profunda Femoris: 104 Proximal SFA: 162 Mid SFA: 114 Distal SFA: 96 Popliteal: 89 Posterior tibial: 80 Incidental note is made of large varicose veins. US/US arterial duplex LE BI IMPRESSION: There is no evidence of any hemodynamically significant lower extremity arterial disease by pressure, waveform or duplex Doppler criteria at rest. Incidental note is made of large varicose veins. It may be useful to assess for superficial venous insufficiency as a cause of bilateral lower extremity swelling.
--- NOTE | ~2021-12-24 | MR_ITS ---
MRI OF THE BRAIN WITHOUT IV CONTRAST INDICATION: Parenchymal lesions with history of lupus. COMPARISON: Head CT 11/11/2021. TECHNIQUE: Multiplanar multisequence MR imaging of the brain was obtained without IV contrast. FINDINGS: There is no hydrocephalus, extra-axial surface collection, or herniation. Mild nonspecific T2 signal changes within the supratentorial white matter. No prior studies available for comparison. The major flow voids at the skull base are preserved. There is no acute infarct on diffusion-weighted imaging. There is no intracranial hemorrhage on the gradient recalled echo acquisition. The midline structures are normal. The cerebellar tonsils are normally positioned. The cerebellum and brainstem are normal. The craniocervical junction is normal. Osseous marrow signal intensity is homogenous. The visualized soft tissues are unremarkable. MR/MR head/brain wo con IMPRESSION: There are no acute intracranial findings. Mild nonspecific T2 signal changes within the supratentorial white matter. No prior studies available for comparison.
--- NOTE | ~2021-12-24 | US_ITS ---
EXAMINATION: US VENOUS ULTRASOUND WITH DOPPLER LOWER EXTREMITY, BILATERAL CLINICAL INFORMATION: Bilateral lower extremity edema COMPARISON: None TECHNIQUE: Ultrasound of the deep veins is performed from the hip to the calf with compression sonography and color and pulse Doppler assessment. Spectral analysis with color-flow imaging is performed. FINDINGS: RIGHT: There is normal venous compression and respiratory variation and augmented flow. The visualized common femoral vein, superficial femoral vein, profunda femoral vein, popliteal vein, and the trifurcation region shows no evidence of deep venous thrombosis. There is no significant popliteal fossa cyst. LEFT: There is normal venous compression and respiratory variation and augmented flow. The visualized common femoral vein, superficial femoral vein, profunda femoral vein, popliteal vein, and the trifurcation region shows no evidence of deep venous thrombosis. There is no significant popliteal fossa cyst. If the patient's symptoms persist, followup ultrasound in 5 days 7 days might be of value to exclude proximal propagation from a non-visualized calf vein. US/US venous duplex LE BI IMPRESSION: No DVT demonstrated in either lower extremity.
[2021-12-24 16:49] VITALS: BP 132/68; BP 163/95; PULSE 108; PULSE 87; RESP 18; TEMP 37; O2SAT 97; O2SAT 98; BMI 19.8
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
[2021-12-24 17:28] LABS: MANUAL DIFF FLAG NO
[2021-12-24 17:44] LABS: Basophils Percent Auto 0.1 % (0-2); Eosinophils Percent Auto 0.3 % (0-4); Hematocrit 37.3 % (37.0-47.0); Hemoglobin 12.8 g/dl (12.0-16.0); Imm Gran Abs Auto 0.01 X10*3/uL (0.00-0.03); Imm Gran Pct Auto 0.1 % (0.0-0.4); Lymphocytes Absolute Auto 1.1 X10*3/uL (1.2-4.9); Lymphocytes Percent Auto 16.6 % (20-40); Mean Corpuscular HGB Conc 34.3 g/dl (31.0-35.0); Mean Corpuscular Hemoglobin 31.2 pg (27.0-33.0); Mean Platelet Volume 9.7 fL (9.4-12.3); Monocytes Absolute Auto 0.3 X10*3/uL (0.1-1.2); Monocytes Percent Auto 3.9 % (2-11); Neutrophils Absolute Auto 5.4 x10*3/uL (2.0-8.3); Platelet Count 228 X10*3/uL (160-400); Red Cell Distribution Width 12.9 % (11.0-16.0); White Blood Count 6.9 X10*3/uL (4.8-10.8)
[2021-12-24] MEDS: 0.9 % Sodium Chloride 1,000 ML 999 ML IVCONT ×2 (17:47→22:04)
[2021-12-24] MEDS: diazePAM 10 MG/2 ML CARTRIDGE 2.5 MG IVPUSH ×2 (17:48→18:32)
[2021-12-24 17:56] LABS: Alanine Aminotransferase 8 U/L (0-31); Albumin Level 4.6 g/dL (3.5-5.0); Alkaline Phosphatase 71 U/L (39-117); Anion Gap 14 (12-20); Aspartate Amino Transferase 13 U/L (5-31); Bilirubin Direct 0.2 mg/dL (0.0-0.5); Bilirubin Total 0.6 mg/dL (0.0-1.0); Blood Urea Nitrogen 11 mg/dL (9-16); Calcium 9.5 mg/dL (8.4-10.2); Carbon Dioxide 26 mmol/L (22-29); Chloride 107 mmol/L (96-108); Creatinine Clr Calc Pharmacy 62.2; Estimated Glomerular Filt Rate > 60; Glucose Random 115 mg/dL (60-115); Lipase 22 U/L (8-78); Potassium 3.7 mmol/L (3.3-5.1); Sodium 143 mmol/L (135-145); Total Protein 6.7 g/dL (6.5-8.0)
[2021-12-24] MEDS: diazePAM 10 MG/2 ML CARTRIDGE 5 MG IVPUSH (20:20)
[2021-12-24] MEDS: Ketorolac Tromethamine 30 MG/ML VIAL IVPUSH (20:20)
[2021-12-24 20:42] LABS: Appearance Urine CLEAR; Color Urine YELLOW; Glucose Urine UA NEG (NEG); Leukocyte Esterase Urine NEG (NEG); Nitrite Urine NEG (NEG); PH 6.5 (5.0-8.0); Specific Gravity - Urine 1.015 (1.005-1.025); UACC Culture Trigger NO; Urine Blood 1+ (NEG); Urine Ketones NEG (NEG); Urine Protein NEG (NEG-TRACE)
[2021-12-24 21:13] LABS: Amorphous Sediment Urine TRACE /LPF; Mucus Urine 2+ /LPF; Squamous Epithelial Cell Urine 2+ /LPF; WBC Urine 0 /HPF (0-4)
--- NOTE | 2021-12-24 21:35 | PHA.MEDREC ---
Pharmacy Consult ? Medication Reconciliation Pharmacy has completed the medication reconciliation. Pt states that she no longer take seroquel, cymbalta, or ASA 81 mg (ASA 81 mg told to hold per her voice professor). States that she still takes her norvasc.
[2021-12-24 22:03] VITALS: RESP 18
[2021-12-24] MEDS: Morphine Sulfate 4 MG/ML CARTRIDGE IVPUSH (22:03)
--- NOTE | 2021-12-24 22:04 | MHC.CM.ED ---
Addendum entered by Candie Barahona 12/24/21 22:16: CARE team consult by Beverley JACKSON. Original Note: CM met with patient at request of Beverley JACKSON. Pt has HX of Stiff Man Syndrome, lupus, PNA, COPD, paranoia, depression, delusional disorder and anxiety. Was recently hospitalized on M5 11/07-11/15. Pt has services with [facility] Nurse comes 3 times/week to assess her BP, per patient. Pt lives with her son and with her father at his home about 2 days per week. [facility] x2( 09/26/20 & 10/25/20. Pt has a new PCP with an appointment 02/04 with Yamil Reis. Pt declines a HCP. Pt is very concerned about her physical symptoms, including headache, dry & sore throat, worsening tremors and stuffy nose. Pt also has numb hands and feet. Feels very anxious. Pt declines need for PT or any STR or SNF. Pt states she may need psych admission. States her father told her she needs to be on M5. States she may need some psychiatric help, but thinks her medical concerns are something else. Pt is very tremulous. Reviewed all of this with Beverley JACKSON. CM will follow for any CM or D/C planning concerns.
[2021-12-24 22:11] VITALS: BP 106/52; PULSE 77; RESP 20; O2SAT 98
[2021-12-25] MEDS: risperiDONE 0.5 MG TABLET PO ×3 (02:21→20:46)
[2021-12-25] MEDS: Gabapentin 600 MG TABLET PO ×3 (02:22→20:46)
[2021-12-25 02:57] VITALS: BP 170/91; PULSE 66
[2021-12-25] MEDS: Propranolol HCL 10 MG TABLET PO ×3 (02:57→20:46)
[2021-12-25 04:44] VITALS: BP 118/51; PULSE 54; RESP 16; TEMP 36.6; O2SAT 98
[2021-12-25 05:12] LABS: COVID-19 Test Negative (Negative); IDNOW Serial# 9DB6401D; Influenza A Negative (Negative); Influenza B2 Negative (Negative)
[2021-12-25 06:00] VITALS: BP 120/61; PULSE 54; RESP 16; TEMP 36.8; O2SAT 100
[2021-12-25] MEDS: amLODIPine Besylate 5 MG TABLET PO (08:27)
[2021-12-25] MEDS: Midodrine HCl 10 MG TABLET PO ×3 (08:27→16:36)
[2021-12-25] MEDS: diazePAM 5 MG TABLET PO ×3 (08:27→20:46)
[2021-12-25 12:31] VITALS: BP 108/79; PULSE 67; RESP 17; O2SAT 100
[2021-12-25] MEDS: Ibuprofen 800 MG TABLET PO ×2 (12:39→21:51)
--- NOTE | 2021-12-25 13:39 | MHC.CM.ED ---
Patient is currently a inpatient psych bed search. Case management will not continue to follow patient at this time.
[2021-12-25 16:31] VITALS: BP 93/55; PULSE 57; RESP 16; TEMP 36.8; O2SAT 100
[2021-12-25 17:55] LABS: Amphetamine Screen Urine Not Detected (Not Detect); Barbiturates, Urine Not Detected (Not Detect); Benzodiazepines Screen Urine POSITIVE (Not Detect); Cannabinoid Screen Urine POSITIVE (Not Detect); Cocaine Screen Urine Not Detected (Not Detect); Fentanyl, urine Not Detected (Not Detect); Opiate Screen Urine POSITIVE (Not Detect); Phencyclidine Screen Urine Not Detected (Not Detect)
--- NOTE | 2021-12-25 19:21 | MHC.CM.ED ---
Pt is a section 12 inpatient bed search.
[2021-12-25] MEDS: Melatonin 3 MG TABLET 6 MG PO (20:46)
[2021-12-25] MEDS: hydrOXYzine HCL 25 MG TABLET PO (22:50)
[2021-12-25] MEDS: traZODone HCL 50 MG TABLET PO (22:51)
[2021-12-25 23:10] VITALS: BP 110/76; PULSE 54; RESP 18; TEMP 36.3; O2SAT 100
--- NOTE | 2021-12-26 00:43 | PC.NURSE ---
Patient is a 56 year old female that [place] [facility] [place] Pt has HX of Stiff Man Syndrome, lupus, PNA, COPD, paranoia, depression, delusional disorder and anxiety. Was recently hospitalized on M5 11/07-11/15. Pt has services with [facility]. Nurse comes 3 times/week to assess her BP, per patient. Pt lives with her son and with her father at his home about 2 days per week. Moderna x2( 09/26/20 & 10/25/20. Pt has a new PCP with an appointment 02/04 with Yamil Reis. Pt declines a HCP. Pt is very concerned about her physical symptoms, including headache, dry & sore throat, worsening tremors and stuffy nose. Pt also has numb hands and feet. Patient reports anxiety 03/17 but reports no SI/HI. Patient presents with delusional thoughts about having a chip inside her and how because of this she glow[place] orange in airports and is basically a walking radio. Patient signed in CV
[2021-12-26 06:00] VITALS: BP 124/61; PULSE 59; TEMP 36.8; O2SAT 100
[2021-12-26 07:00] VITALS: BMI 21.2
[2021-12-26] MEDS: risperiDONE 0.5 MG TABLET PO ×2 (09:12→20:26)
[2021-12-26] MEDS: Midodrine HCl 10 MG TABLET PO ×3 (09:12→16:17)
[2021-12-26] MEDS: diazePAM 5 MG TABLET PO ×3 (09:13→20:26)
[2021-12-26] MEDS: amLODIPine Besylate 5 MG TABLET PO (09:13)
[2021-12-26] MEDS: Gabapentin 600 MG TABLET PO ×2 (09:13→20:26)
[2021-12-26] MEDS: Propranolol HCL 10 MG TABLET PO ×2 (09:13→20:26)
[2021-12-26 09:27] LABS: Estimated Average Glucose 94 mg/dL; Hemoglobin A1c % 4.9 %
[2021-12-26 09:36] LABS: Alanine Aminotransferase 7 U/L (0-31); Alkaline Phosphatase 64 U/L (39-117); Anion Gap 10 (12-20); Aspartate Amino Transferase 12 U/L (5-31); Bilirubin Total 0.3 mg/dL (0.0-1.0); Blood Urea Nitrogen 12 mg/dL (9-16); Calcium 9.1 mg/dL (8.4-10.2); Carbon Dioxide 29 mmol/L (22-29); Chloride 107 mmol/L (96-108); Cholesterol 175 mg/dL; Creatinine Clr Calc Pharmacy 64.2; Estimated Glomerular Filt Rate > 60; Glucose Fasting 93 mg/dL (60-99); HDL Cholesterol 42 mg/dL; LDL Cholesterol Calculated 118 mg/dl; Potassium 4.3 mmol/L (3.3-5.1); Sodium 142 mmol/L (135-145); Triglycerides 78 mg/dL
[2021-12-26 09:58] LABS: Thyroid Stimulating Hormone 0.43 uIU/mL (0.32-4.0)
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
[2021-12-26 10:47] LABS: Folate 8.8 ng/mL (> or = 4.0); Vitamin B12 324 pg/mL (200-900)
--- NOTE | 2021-12-26 11:41 | MHC.CLN ---
RE: CONSULT FOR WT LOSS PT'S PREVIOUS WT HX REVEALS: CURRENT WT 54.5KG (12/26/21) 49.8KG (11/01/21) PT WITH A 9% SIGNIFICANT WT GAIN X 2 MONTHS, BMI WNL NO NEW ORDERS AT THIS TIME
[2021-12-26] MEDS: hydrOXYzine HCL 25 MG TABLET PO (13:27)
[2021-12-26] MEDS: Ibuprofen 800 MG TABLET PO ×2 (16:49→22:34)
[2021-12-26 18:00] VITALS: BP 120/78; PULSE 125; RESP 16; TEMP 36.6; O2SAT 98
[2021-12-26] MEDS: Melatonin 3 MG TABLET 6 MG PO (22:33)
[2021-12-26] MEDS: Baclofen 10 MG TABLET PO (22:33)
[2021-12-26] MEDS: traZODone HCL 50 MG TABLET PO (22:33)
[2021-12-27 08:41] VITALS: BP 112/61; PULSE 54; RESP 14; TEMP 36.7; O2SAT 91
[2021-12-27] MEDS: Midodrine HCl 10 MG TABLET PO ×3 (08:43→18:06)
[2021-12-27] MEDS: risperiDONE 0.5 MG TABLET PO (08:44)
[2021-12-27] MEDS: Gabapentin 600 MG TABLET PO ×3 (08:45→21:33)
[2021-12-27] MEDS: diazePAM 5 MG TABLET PO (08:45)
[2021-12-27] MEDS: Ibuprofen 800 MG TABLET PO ×2 (10:27→22:32)
[2021-12-27] MEDS: Baclofen 10 MG TABLET PO ×2 (10:28→21:33)
[2021-12-27] MEDS: hydrOXYzine HCL 25 MG TABLET PO (10:28)
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
[2021-12-27] MEDS: Acetaminophen 325 MG TABLET 650 MG PO (13:21)
[2021-12-27] MEDS: diazePAM 5 MG TABLET 10 MG PO ×2 (14:28→21:33)
[2021-12-27 21:22] VITALS: BP 162/77; PULSE 71; RESP 18; TEMP 36.4; O2SAT 96
[2021-12-27] MEDS: Propranolol HCL 10 MG TABLET PO (21:32)
[2021-12-27] MEDS: OLANZapine 5 MG TABLET PO (21:33)
[2021-12-27] MEDS: Melatonin 3 MG TABLET 6 MG PO (22:32)
[2021-12-27] MEDS: traZODone HCL 50 MG TABLET PO (22:32)
[2021-12-28 09:43] VITALS: BP 131/85; PULSE 60; RESP 15; TEMP 36.6; O2SAT 100
[2021-12-28] MEDS: diazePAM 5 MG TABLET 10 MG PO ×3 (09:55→21:39)
[2021-12-28] MEDS: Baclofen 10 MG TABLET PO ×2 (09:55→21:39)
[2021-12-28] MEDS: Propranolol HCL 10 MG TABLET PO (09:56)
[2021-12-28] MEDS: Midodrine HCl 10 MG TABLET PO ×3 (09:56→18:11)
[2021-12-28] MEDS: amLODIPine Besylate 5 MG TABLET PO (09:56)
[2021-12-28] MEDS: Gabapentin 600 MG TABLET PO ×3 (09:56→21:39)
--- NOTE | 2021-12-28 12:30 | P.PNPSI_ITS ---
Subjective Subjective Date of Service: 12/28/21 Reason For Visit: delusions Subjective Notes: Conditional Voluntary Interim History: Pt reports she had better sleep. She reports feeling slightly less anxious. She continues to report that ex boyfriend implanted chips that can't be detected in x ray, that ex boyfriend has patent on this device pending. She reports today she has tolarated being close to electronics more than day prior. Feels less stiffness and visible walking with less difficulty- which may be related to increase diazepam. Medication Compliance: Yes Side effects from medications: No Review of Systems Review of Systems Constitutional: No Fever, No Chills ENT/Mouth: No Ear Pain, No Hoarseness, No sore throat Eyes: No Eye Pain, No Swelling, No Redness, No Foreign Body Cardiovascular: No Chest Pain, No SOB Respiratory: No Cough, No Dyspnea Gastrointestinal: No Nausea, No Vomiting, No Diarrhea, No abdominal Pain Genitourinary: Positive constipation, No Dysuria, No Hematuria Musculoskeletal: positive neck pain, No Myalgias, No Joint Swelling Skin: No Skin lacerations, No rash Neuro: No Weakness, No Numbness, No Paresthesias, No Loss of Consciousness, No Dizziness, positive Headache Psych: Positive Anxiety/Panic, No Depression, no SI HI Heme/Lymph: no easy bruising, no Lymphadenopathy Endocrine: No Polyuria, No Polydipsia Yes all other systems are reviewed and are negative Mental Status Exam Mental Status Exam Narrative: Appearance: thin, malnourish, , poor hygiene in physical distress due to muscle spams and increase anxiety related to delusional content. Behavior:initially guarded, but later more open and cooperative psychomotor: bilat resting and action tremors, visible muscle twitching/spams. does become more agitated as she talks about persecutory delusions Speech:mostly clear, some stuttering, normal rhythm, spontaneous Thought process:tangential at times Thought content:persecutory delusions, frustration about medical conditions and physical deterioration Mood: depressed and anxious Affect: congruent, tearful, very anxious and hypervigilant SI:passive HI:none VH/AH:none Delusions:paranoid/persecutory delusions of ex boyfriend implanted microchips in vagina and is tracking her Insight/judgment:fair x 2. Memory/cog: alert, oriented x 3. Diagnostics Vital Signs (24Hr): Vital Signs - 24 hr 12/29/21 09:10 12/29/21 12:28 12/29/21 21:46 Temperature 97.5 F 97.2 F Pulse Rate 48 L 57 57 Respiratory Rate 17 18 Blood Pressure 171/73 H 140/84 H 139/82 Pulse Oximetry 95 Oxygen Delivery Method Room Air Room Air BMI result Body Mass Index 21.2 Labs Results: 12/24/21 17:25 12/26/21 09:02 Imaging Radiology Impressions: ITS Impressions Shoulder X-Ray 12/28/21 18:34 IMPRESSION: Postsurgical changes of the right shoulder with 2 radiopaque markers along the superior anterior margin of the glenoid. Medications Medications Current Medications Acetaminophen (Acetaminophen 325 Mg Tablet) 650 mg PO Q6H PRN PRN Reason: Headache/Pain Mild Scale (1-3) Last Admin: 12/27/21 13:21 Dose: 650 mg Al Hydroxide/Mg Hydroxide (Magnesium Hydrox/Alum Hydrox 30 Ml Oral.Susp) 30 ml PO Q6H PRN PRN Reason: Heartburn/Nausea Amlodipine Besylate (Amlodipine Besylate 5 Mg Tablet) 5 mg PO DAILY [facility]; Protocol Last Admin: 12/29/21 09:39 Dose: 5 mg Baclofen (Baclofen 10 Mg Tablet) 10 mg PO TID [facility] Last Admin: 12/29/21 22:00 Dose: 10 mg Diazepam (Diazepam 5 Mg Tablet) 10 mg PO TID [facility] Last Admin: 12/29/21 22:00 Dose: 10 mg Diazepam (Diazepam 5 Mg Tablet) 5 mg PO DAILY PRN PRN Reason: Muscle Spasm Docusate Sodium (Docusate Sodium 100 Mg Capsule) 100 mg PO BID PRN PRN Reason: constipation Fluticasone/Vilanterol (Fluticasone/Vilanterol 100/25 Blst.W.Dev) 1 puff INHALE DAILY [facility] Last Admin: 12/29/21 09:41 Dose: Not Given Gabapentin (Gabapentin 600 Mg Tablet) 600 mg PO TID [facility] Last Admin: 12/29/21 21:59 Dose: 600 mg Hydroxyzine HCl (Hydroxyzine Hcl 25 Mg Tablet) 25 mg PO Q6H PRN PRN Reason: Anxiety Last Admin: 12/29/21 15:56 Dose: 25 mg Ibuprofen (Ibuprofen 800 Mg Tablet) 800 mg PO Q6H PRN PRN Reason: Pain, Moderate (Pain Scale 4-6 Last Admin: 12/29/21 22:42 Dose: 800 mg Magnesium Hydroxide (Milk Of Magnesia 30 Ml Oral.Susp) 30 ml PO DAILY PRN PRN Reason: Constipation Melatonin (Melatonin 3 Mg Tablet) 6 mg PO BEDTIME PRN PRN Reason: Insomnia Last Admin: 12/29/21 22:42 Dose: 6 mg Midodrine (Midodrine Hcl 10 Mg Tablet) 10 mg PO TIDWM [facility] Last Admin: 12/29/21 17:03 Dose: 10 mg Nicotine Polacrilex (Nicotine Polacrilex 2 Mg Gum) 4 mg BUCCAL Q2H PRN PRN Reason: Nicotine Cravings Olanzapine (Olanzapine 10 Mg Tablet) 10 mg PO BEDTIME [facility] Last Admin: 12/29/21 21:59 Dose: 10 mg Propranolol HCl (Propranolol Hcl 10 Mg Tablet) 10 mg PO BID [facility]; Protocol Last Admin: 12/29/21 22:43 Dose: Not Given Sodium Chloride (Sodium Chloride 0.65 % Nasal 44 Ml Sprbtl) 1 spray NOSTRIL-B Q1H PRN PRN Reason: Dryness Last Admin: 12/28/21 13:23 Dose: 1 spray Trazodone HCl (Trazodone Hcl 50 Mg Tablet) 50 mg PO BEDTIME PRN PRN Reason: Insomnia Last Admin: 12/29/21 22:42 Dose: 50 mg Allergies Allergies Allergy/AdvReac Type Severity Reaction Status Date / Time albuterol AdvReac Palpitation Verified 11/01/21 20:16 s Assessment & Plan Assessment & Plan (1) Delusional disorder: Status: Acute Code(s): F22 - Delusional disorders Plan Ms. 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 Pt also has been presenting with delusions related to ex- boyfriend implanting microchips in throat and vagina that are interacting with electromagnetic vargas of telephones, TV, computers. She believes ex-boyfriend is tracking her and monitoring her which is very distressing to her. These delusions have been present for the past year and a half. While being medically cleared, pt expressed severe anxiety due to persecutory delusions, passive suicidal ideation. Utox was positive for benzodiazepines, cannabinoids. We discussed risks, benefits and alternative treatment options. PLAN 1. Admit to M3, 15 minutes checks for safety. 2. We discussed either increasing risperidone or trying olanzapine. Pt agreed to try olanzapine 5mg po qhs. Will increase diazepam to 10mg po TID, increase gabapentin to 600mg po TID. 3. obtain collateral information 4. aftercare planning. 12/27- continue current medications. 12/28 continue current medications. I spent minutes with the patient and/or on the patient floor today, greater than?50% of which was spent counseling/coordinating care. Reason for contiued inpatient stay Substantial Risk for: harm to self
[2021-12-28] MEDS: Sodium Chloride 0.65 % Nasal 44 ML SPRBTL 1 SPRAY NOSTRIL-B (13:23)
[2021-12-28] MEDS: hydrOXYzine HCL 25 MG TABLET PO (14:11)
[2021-12-28] MEDS: Ibuprofen 800 MG TABLET PO ×2 (14:11→22:49)
[2021-12-28 21:35] VITALS: BP 160/76; PULSE 51; RESP 18; TEMP 36.3; O2SAT 99
[2021-12-28] MEDS: OLANZapine 5 MG TABLET PO (21:39)
[2021-12-28] MEDS: traZODone HCL 50 MG TABLET PO ×2 (22:49→23:57)
[2021-12-28] MEDS: Melatonin 3 MG TABLET 6 MG PO (22:49)
[2021-12-29 09:10] VITALS: BP 171/73; PULSE 48; RESP 17; TEMP 36.4; O2SAT 95
[2021-12-29] MEDS: Midodrine HCl 10 MG TABLET PO ×3 (09:11→17:03)
[2021-12-29] MEDS: Baclofen 10 MG TABLET PO ×3 (09:11→22:00)
[2021-12-29] MEDS: Gabapentin 600 MG TABLET PO ×3 (09:11→21:59)
[2021-12-29] MEDS: diazePAM 5 MG TABLET 10 MG PO ×3 (09:12→22:00)
[2021-12-29] MEDS: Ibuprofen 800 MG TABLET PO ×3 (09:38→22:42)
[2021-12-29] MEDS: hydrOXYzine HCL 25 MG TABLET PO ×2 (09:39→15:56)
[2021-12-29] MEDS: amLODIPine Besylate 5 MG TABLET PO (09:39)
--- NOTE | 2021-12-29 10:33 | HO.PSYCHPN ---
Subjective Subjective Date of Service: 12/29/21 Reason For Visit: delusions Subjective Notes: Conditional Voluntary Interim History: Pt reports she slept much better last night, but did wake up in pain. She reports regarding her mood she is much less anxious, less worried about electronic but continues to report that chips were implanted. She reports suicidal ideation but no plan or intent. She thinks medications helping greatly. 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 Medication Compliance: Yes Side effects from medications: No Review of Systems Review of Systems Constitutional: No Fever, No Chills ENT/Mouth: No Ear Pain, No Hoarseness, No sore throat Eyes: No Eye Pain, No Swelling, No Redness, No Foreign Body Cardiovascular: No Chest Pain, No SOB Respiratory: No Cough, No Dyspnea Gastrointestinal: No Nausea, No Vomiting, No Diarrhea, No abdominal Pain Genitourinary: Positive constipation, No Dysuria, No Hematuria Musculoskeletal: positive neck pain, No Myalgias, No Joint Swelling Skin: No Skin lacerations, No rash Neuro: No Weakness, No Numbness, No Paresthesias, No Loss of Consciousness, No Dizziness, positive Headache Psych: Positive Anxiety/Panic, No Depression, no SI HI Heme/Lymph: no easy bruising, no Lymphadenopathy Endocrine: No Polyuria, No Polydipsia Yes all other systems are reviewed and are negative Mental Status Exam Mental Status Exam Narrative: Appearance: thin, malnourish, , poor hygiene in physical distress due to muscle spams and increase anxiety related to delusional content. Behavior:initially guarded, but later more open and cooperative psychomotor: bilat resting and action tremors, visible muscle twitching/spams. does become more agitated as she talks about persecutory delusions Speech:mostly clear, some stuttering, normal rhythm, spontaneous Thought process:tangential at times Thought content:persecutory delusions, frustration about medical conditions and physical deterioration Mood: depressed and anxious Affect: congruent, tearful, very anxious and hypervigilant SI:passive HI:none VH/AH:none Delusions:paranoid/persecutory delusions of ex boyfriend implanted microchips in vagina and is tracking her Insight/judgment:fair x 2. Memory/cog: alert, oriented x 3. Diagnostics Vital Signs (24Hr): Vital Signs - 24 hr 12/29/21 09:10 12/29/21 12:28 12/29/21 21:46 Temperature 97.5 F 97.2 F Pulse Rate 48 L 57 57 Respiratory Rate 17 18 Blood Pressure 171/73 H 140/84 H 139/82 Pulse Oximetry 95 Oxygen Delivery Method Room Air Room Air BMI result Body Mass Index 21.2 Labs Results: 12/24/21 17:25 12/26/21 09:02 Imaging Radiology Impressions: ITS Impressions Shoulder X-Ray 12/28/21 18:34 IMPRESSION: Postsurgical changes of the right shoulder with 2 radiopaque markers along the superior anterior margin of the glenoid. Medications Medications Current Medications Acetaminophen (Acetaminophen 325 Mg Tablet) 650 mg PO Q6H PRN PRN Reason: Headache/Pain Mild Scale (1-3) Last Admin: 12/27/21 13:21 Dose: 650 mg Al Hydroxide/Mg Hydroxide (Magnesium Hydrox/Alum Hydrox 30 Ml Oral.Susp) 30 ml PO Q6H PRN PRN Reason: Heartburn/Nausea Amlodipine Besylate (Amlodipine Besylate 5 Mg Tablet) 5 mg PO DAILY [facility]; Protocol Last Admin: 12/29/21 09:39 Dose: 5 mg Baclofen (Baclofen 10 Mg Tablet) 10 mg PO TID [facility] Last Admin: 12/29/21 22:00 Dose: 10 mg Diazepam (Diazepam 5 Mg Tablet) 10 mg PO TID [facility] Last Admin: 12/29/21 22:00 Dose: 10 mg Diazepam (Diazepam 5 Mg Tablet) 5 mg PO DAILY PRN PRN Reason: Muscle Spasm Docusate Sodium (Docusate Sodium 100 Mg Capsule) 100 mg PO BID PRN PRN Reason: constipation Fluticasone/Vilanterol (Fluticasone/Vilanterol 100/25 Blst.W.Dev) 1 puff INHALE DAILY [facility] Last Admin: 12/29/21 09:41 Dose: Not Given Gabapentin (Gabapentin 600 Mg Tablet) 600 mg PO TID [facility] Last Admin: 12/29/21 21:59 Dose: 600 mg Hydroxyzine HCl (Hydroxyzine Hcl 25 Mg Tablet) 25 mg PO Q6H PRN PRN Reason: Anxiety Last Admin: 12/29/21 15:56 Dose: 25 mg Ibuprofen (Ibuprofen 800 Mg Tablet) 800 mg PO Q6H PRN PRN Reason: Pain, Moderate (Pain Scale 4-6 Last Admin: 12/29/21 22:42 Dose: 800 mg Magnesium Hydroxide (Milk Of Magnesia 30 Ml Oral.Susp) 30 ml PO DAILY PRN PRN Reason: Constipation Melatonin (Melatonin 3 Mg Tablet) 6 mg PO BEDTIME PRN PRN Reason: Insomnia Last Admin: 12/29/21 22:42 Dose: 6 mg Midodrine (Midodrine Hcl 10 Mg Tablet) 10 mg PO TIDWM [facility] Last Admin: 12/29/21 17:03 Dose: 10 mg Nicotine Polacrilex (Nicotine Polacrilex 2 Mg Gum) 4 mg BUCCAL Q2H PRN PRN Reason: Nicotine Cravings Olanzapine (Olanzapine 10 Mg Tablet) 10 mg PO BEDTIME [facility] Last Admin: 12/29/21 21:59 Dose: 10 mg Propranolol HCl (Propranolol Hcl 10 Mg Tablet) 10 mg PO BID [facility]; Protocol Last Admin: 12/29/21 22:43 Dose: Not Given Sodium Chloride (Sodium Chloride 0.65 % Nasal 44 Ml Sprbtl) 1 spray NOSTRIL-B Q1H PRN PRN Reason: Dryness Last Admin: 12/28/21 13:23 Dose: 1 spray Trazodone HCl (Trazodone Hcl 50 Mg Tablet) 50 mg PO BEDTIME PRN PRN Reason: Insomnia Last Admin: 12/29/21 22:42 Dose: 50 mg Allergies Allergies Allergy/AdvReac Type Severity Reaction Status Date / Time albuterol AdvReac Palpitation Verified 11/01/21 20:16 s Assessment & Plan Assessment & Plan (1) Delusional disorder: Status: Acute Code(s): F22 - Delusional disorders Plan Ms. 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 Pt also has been presenting with delusions related to ex-boyfriend implanting microchips in throat and vagina that are interacting with electromagnetic vargas of telephones, TV, computers. She believes ex-boyfriend is tracking her and monitoring her which is very distressing to her. These delusions have been present for the past year and a half. While being medically cleared, pt expressed severe anxiety due to persecutory delusions, passive suicidal ideation. Utox was positive for benzodiazepines, cannabinoids. We discussed risks, benefits and alternative treatment options. PLAN 1. Admit to M3, 15 minutes checks for safety. 2. We discussed either increasing risperidone or trying olanzapine. Pt agreed to try olanzapine 5mg po qhs. Will increase diazepam to 10mg po TID, increase gabapentin to 600mg po TID. 3. obtain collateral information 4. aftercare planning. 12/27- continue current medications. 12/28 continue current medications. 12/29 continue current medications. I spent ____25__ minutes with the patient and/or on the patient floor today, greater than?50% of which was spent counseling/coordinating care. Reason for contiued inpatient stay Substantial Risk for: harm to self
[2021-12-29 12:28] VITALS: BP 140/84; PULSE 57
[2021-12-29 21:46] VITALS: BP 139/82; PULSE 57; RESP 18; TEMP 36.2
[2021-12-29] MEDS: OLANZapine 10 MG TABLET PO (21:59)
[2021-12-29] MEDS: traZODone HCL 50 MG TABLET PO (22:42)
[2021-12-29] MEDS: Melatonin 3 MG TABLET 6 MG PO (22:42)
[2021-12-30 08:58] VITALS: BP 124/73; PULSE 58; RESP 16; TEMP 36.6; O2SAT 100
[2021-12-30] MEDS: diazePAM 5 MG TABLET 10 MG PO ×3 (09:02→21:18)
[2021-12-30] MEDS: amLODIPine Besylate 5 MG TABLET PO (09:05)
[2021-12-30] MEDS: Gabapentin 600 MG TABLET PO ×3 (09:05→21:20)
[2021-12-30] MEDS: Baclofen 10 MG TABLET PO ×3 (09:06→21:18)
[2021-12-30] MEDS: Midodrine HCl 10 MG TABLET PO ×3 (09:06→16:42)
[2021-12-30] MEDS: Sodium Chloride 0.65 % Nasal 44 ML SPRBTL 1 SPRAY NOSTRIL-B ×2 (09:59→23:33)
[2021-12-30] MEDS: hydrOXYzine HCL 25 MG TABLET PO ×3 (10:00→22:47)
[2021-12-30] MEDS: Ibuprofen 800 MG TABLET PO ×3 (10:00→22:48)
--- NOTE | 2021-12-30 16:00 | HO.PSYCHPN ---
Subjective Subjective Date of Service: 12/30/21 Reason For Visit: delusions Interim History: cooperative. tremulous, difficult time getting out of bed. comes across and calm, even, non-psychotic at first. then continues re her fear of electronic devices and how her ex-BF has implanted a chip in her that interacts with all of these things. extremely reactive to the suggestion she may be delusional. near-pressured speech. ultimately agree to leave things as they are for now and check in again tomorrow. per staff, eating better but poor sleep. / anx/dep. ex put tracker in her and she can hear data processing sounds. denies SI/HI/AVH. valium and baclofen increases have been helpful. Mental Status Exam Mental Status Exam Narrative: Appearance: thin, malnourish, , poor hygiene in physical distress due to muscle spams and increase anxiety related to delusional content. Behavior: cooperative psychomotor: bilat resting and action tremors, visible muscle twitching/spams. does become more agitated as she talks about persecutory delusions Speech:mostly clear, some stuttering, normal rhythm, spontaneous Thought process:tangential at times Thought content:persecutory delusions, frustration about medical conditions and physical deterioration Mood: depressed and anxious Affect: congruent, very anxious and hypervigilant SI: none expressed HI: none expressed VH/AH: none expressed Delusions:paranoid/persecutory delusions of ex boyfriend implanted microchips in vagina and is tracking her Insight/judgment: impaired Memory/cog: alert, oriented x 3. Diagnostics Vital Signs (24Hr): Vital Signs - 24 hr 12/29/21 21:46 12/30/21 08:58 Temperature 97.2 F 97.9 F Pulse Rate 57 58 Respiratory Rate 18 16 Blood Pressure 139/82 124/73 Pulse Oximetry 100 Oxygen Delivery Method Room Air Room Air BMI result Body Mass Index 21.2 Labs Results: 12/24/21 17:25 12/26/21 09:02 Imaging Radiology Impressions: ITS Impressions Shoulder X-Ray 12/28/21 18:34 IMPRESSION: Postsurgical changes of the right shoulder with 2 radiopaque markers along the superior anterior margin of the glenoid. Brain MRI 12/30/21 12:55 IMPRESSION: There are no acute intracranial findings. Mild nonspecific T2 signal changes within the supratentorial white matter. No prior studies available for comparison. Medications Medications Current Medications Acetaminophen (Acetaminophen 325 Mg Tablet) 650 mg PO Q6H PRN PRN Reason: Headache/Pain Mild Scale (1-3) Last Admin: 12/27/21 13:21 Dose: 650 mg Al Hydroxide/Mg Hydroxide (Magnesium Hydrox/Alum Hydrox 30 Ml Oral.Susp) 30 ml PO Q6H PRN PRN Reason: Heartburn/Nausea Amlodipine Besylate (Amlodipine Besylate 5 Mg Tablet) 5 mg PO DAILY [facility]; Protocol Last Admin: 12/30/21 09:05 Dose: 5 mg Baclofen (Baclofen 10 Mg Tablet) 10 mg PO TID [facility] Last Admin: 12/30/21 14:10 Dose: 10 mg Diazepam (Diazepam 5 Mg Tablet) 10 mg PO TID [facility] Last Admin: 12/30/21 14:10 Dose: 10 mg Diazepam (Diazepam 5 Mg Tablet) 5 mg PO DAILY PRN PRN Reason: Muscle Spasm Docusate Sodium (Docusate Sodium 100 Mg Capsule) 100 mg PO BID PRN PRN Reason: constipation Fluticasone/Vilanterol (Fluticasone/Vilanterol 100/25 Blst.W.Dev) 1 puff INHALE DAILY [facility] Last Admin: 12/30/21 09:06 Dose: Not Given Gabapentin (Gabapentin 600 Mg Tablet) 600 mg PO TID [facility] Last Admin: 12/30/21 14:10 Dose: 600 mg Hydroxyzine HCl (Hydroxyzine Hcl 25 Mg Tablet) 25 mg PO Q6H PRN PRN Reason: Anxiety Last Admin: 12/30/21 10:00 Dose: 25 mg Ibuprofen (Ibuprofen 800 Mg Tablet) 800 mg PO Q6H PRN PRN Reason: Pain, Moderate (Pain Scale 4-6 Last Admin: 12/30/21 10:00 Dose: 800 mg Magnesium Hydroxide (Milk Of Magnesia 30 Ml Oral.Susp) 30 ml PO DAILY PRN PRN Reason: Constipation Melatonin (Melatonin 3 Mg Tablet) 6 mg PO BEDTIME PRN PRN Reason: Insomnia Last Admin: 12/29/21 22:42 Dose: 6 mg Midodrine (Midodrine Hcl 10 Mg Tablet) 10 mg PO TIDWM [facility] Last Admin: 12/30/21 13:19 Dose: 10 mg Nicotine Polacrilex (Nicotine Polacrilex 2 Mg Gum) 4 mg BUCCAL Q2H PRN PRN Reason: Nicotine Cravings Olanzapine (Olanzapine 10 Mg Tablet) 10 mg PO BEDTIME [facility] Last Admin: 12/29/21 21:59 Dose: 10 mg Propranolol HCl (Propranolol Hcl 10 Mg Tablet) 10 mg PO BID [facility]; Protocol Last Admin: 12/30/21 09:07 Dose: Not Given Sodium Chloride (Sodium Chloride 0.65 % Nasal 44 Ml Sprbtl) 1 spray NOSTRIL-B Q1H PRN PRN Reason: Dryness Last Admin: 12/30/21 09:59 Dose: 1 spray Trazodone HCl (Trazodone Hcl 50 Mg Tablet) 50 mg PO BEDTIME PRN PRN Reason: Insomnia Last Admin: 12/29/21 22:42 Dose: 50 mg Allergies Allergies Allergy/AdvReac Type Severity Reaction Status Date / Time albuterol AdvReac Palpitation Verified 11/01/21 20:16 s Assessment & Plan Assessment & Plan (1) Delusional disorder: Status: Acute Code(s): F22 - Delusional disorders Plan Ms. 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 Pt also has been presenting with delusions related to ex-boyfriend implanting microchips in throat and vagina that are interacting with electromagnetic vargas of telephones, TV, computers. She believes ex-boyfriend is tracking her and monitoring her which is very distressing to her. These delusions have been present for the past year and a half. While being medically cleared, pt expressed severe anxiety due to persecutory delusions, passive suicidal ideation. Utox was positive for benzodiazepines, cannabinoids. We discussed risks, benefits and alternative treatment options. PLAN 1. Admit to M3, 15 minutes checks for safety. 2. We discussed either increasing risperidone or trying olanzapine. Pt agreed to try olanzapine 5mg po qhs. Will increase diazepam to 10mg po TID, increase gabapentin to 600mg po TID. 3. obtain collateral information 4. aftercare planning. 12/27- continue current medications. 12/28 continue current medications. 12/29 continue current medications. 12/30: continue current mgmt. T/C increase in HS zyprexa to 20 mg for sleep and psychosis. also T/C mood stabilizer. I spent ___35___ minutes with the patient and/or on the patient floor today, greater than?50% of which was spent counseling/coordinating care. Reason for contiued inpatient stay Substantial Risk for: inability to function and rapid decompensation
[2021-12-30 21:16] VITALS: BP 176/92; PULSE 55; RESP 18; TEMP 36.6; O2SAT 100
[2021-12-30] MEDS: OLANZapine 10 MG TABLET PO (21:18)
[2021-12-30] MEDS: Propranolol HCL 10 MG TABLET PO (21:19)
[2021-12-30 22:09] VITALS: BP 140/92; PULSE 70
[2021-12-30] MEDS: traZODone HCL 50 MG TABLET PO (22:48)
[2021-12-31 06:00] VITALS: BP 117/58; PULSE 48; RESP 18; TEMP 37; O2SAT 100
[2021-12-31] MEDS: Gabapentin 600 MG TABLET PO ×3 (08:58→20:59)
[2021-12-31] MEDS: Baclofen 10 MG TABLET PO ×3 (08:59→20:59)
[2021-12-31] MEDS: diazePAM 5 MG TABLET 10 MG PO ×3 (08:59→20:58)
[2021-12-31] MEDS: amLODIPine Besylate 5 MG TABLET PO (08:59)
[2021-12-31] MEDS: Midodrine HCl 10 MG TABLET PO ×3 (08:59→17:52)
[2021-12-31] MEDS: Sodium Chloride 0.65 % Nasal 44 ML SPRBTL 1 SPRAY NOSTRIL-B (09:41)
--- NOTE | 2021-12-31 14:36 | P.PNPSI_ITS ---
Subjective Subjective Date of Service: 12/31/21 Reason For Visit: delusions Interim History: pleasant, cooperative in brief interview. talks a bit of her recent visit from her sister and how that went poorly due to a long-standing rivalry. MD inquires as to what she takes zyprexa for, and she replies it is helpful for sleep, anxiety, and tremor. she is agreeable to increasing the dose from 10 mg to 20 mg at HS. per staff, pt was tearful re visit from her sister yesterday. denies SI/HI. c/o anxiety. Mental Status Exam Mental Status Exam Narrative: Appearance: thin, malnourished, poor hygiene in physical distress due to muscle spams and increase anxiety related to delusional content. Behavior: cooperative psychomotor: bilat resting and action tremors, visible muscle twitching/spams. Speech:mostly clear, some stuttering, normal rhythm, spontaneous Thought process:tangential at times Thought content:persecutory delusions, frustration about medical conditions and physical deterioration Mood: depressed and anxious Affect: congruent, very anxious and hypervigilant SI: none expressed HI: none expressed VH/AH: none expressed Delusions:paranoid/persecutory delusions of ex boyfriend implanted microchips in vagina and is tracking her Insight/judgment: impaired Memory/cog: alert, oriented x 3. Diagnostics Vital Signs (24Hr): Vital Signs - 24 hr 12/30/21 21:16 12/30/21 22:09 12/31/21 06:00 Temperature 97.9 F 98.6 F Pulse Rate 55 70 48 L Respiratory Rate 18 18 Blood Pressure 176/92 H 140/92 H 117/58 L Pulse Oximetry 100 100 Oxygen Delivery Method Room Air Room Air BMI result Body Mass Index 21.2 Labs Results: 12/24/21 17:25 12/26/21 09:02 Imaging Radiology Impressions: ITS Impressions Shoulder X-Ray 12/28/21 18:34 IMPRESSION: Postsurgical changes of the right shoulder with 2 radiopaque markers along the superior anterior margin of the glenoid. Brain MRI 12/30/21 12:55 IMPRESSION: There are no acute intracranial findings. Mild nonspecific T2 signal changes within the supratentorial white matter. No prior studies available for comparison. Medications Medications Current Medications Acetaminophen (Acetaminophen 325 Mg Tablet) 650 mg PO Q6H PRN PRN Reason: Headache/Pain Mild Scale (1-3) Last Admin: 12/27/21 13:21 Dose: 650 mg Al Hydroxide/Mg Hydroxide (Magnesium Hydrox/Alum Hydrox 30 Ml Oral.Susp) 30 ml PO Q6H PRN PRN Reason: Heartburn/Nausea Amlodipine Besylate (Amlodipine Besylate 5 Mg Tablet) 5 mg PO DAILY [facility]; Protocol Last Admin: 12/31/21 08:59 Dose: 5 mg Baclofen (Baclofen 10 Mg Tablet) 10 mg PO TID [facility] Last Admin: 12/31/21 08:59 Dose: 10 mg Diazepam (Diazepam 5 Mg Tablet) 10 mg PO TID [facility] Last Admin: 12/31/21 08:59 Dose: 10 mg Diazepam (Diazepam 5 Mg Tablet) 5 mg PO DAILY PRN PRN Reason: Muscle Spasm Docusate Sodium (Docusate Sodium 100 Mg Capsule) 100 mg PO BID PRN PRN Reason: constipation Fluticasone/Vilanterol (Fluticasone/Vilanterol 100/25 Blst.W.Dev) 1 puff INHALE DAILY [facility] Last Admin: 12/31/21 10:33 Dose: Not Given Gabapentin (Gabapentin 600 Mg Tablet) 600 mg PO TID [facility] Last Admin: 12/31/21 08:58 Dose: 600 mg Hydroxyzine HCl (Hydroxyzine Hcl 25 Mg Tablet) 25 mg PO Q6H PRN PRN Reason: Anxiety Last Admin: 12/30/21 22:47 Dose: 25 mg Ibuprofen (Ibuprofen 800 Mg Tablet) 800 mg PO Q6H PRN PRN Reason: Pain, Moderate (Pain Scale 4-6 Last Admin: 12/30/21 22:48 Dose: 800 mg Magnesium Hydroxide (Milk Of Magnesia 30 Ml Oral.Susp) 30 ml PO DAILY PRN PRN Reason: Constipation Melatonin (Melatonin 3 Mg Tablet) 6 mg PO BEDTIME PRN PRN Reason: Insomnia Last Admin: 12/29/21 22:42 Dose: 6 mg Midodrine (Midodrine Hcl 10 Mg Tablet) 10 mg PO TIDWM [facility] Last Admin: 12/31/21 12:49 Dose: 10 mg Nicotine Polacrilex (Nicotine Polacrilex 2 Mg Gum) 4 mg BUCCAL Q2H PRN PRN Reason: Nicotine Cravings Propranolol HCl (Propranolol Hcl 10 Mg Tablet) 10 mg PO BID [facility]; Protocol Last Admin: 12/31/21 10:33 Dose: Not Given Sodium Chloride (Sodium Chloride 0.65 % Nasal 44 Ml Sprbtl) 1 spray NOSTRIL-B Q1H PRN PRN Reason: Dryness Last Admin: 12/31/21 09:41 Dose: 1 spray Trazodone HCl (Trazodone Hcl 50 Mg Tablet) 50 mg PO BEDTIME PRN PRN Reason: Insomnia Last Admin: 12/30/21 22:48 Dose: 50 mg Allergies Allergies Allergy/AdvReac Type Severity Reaction Status Date / Time albuterol AdvReac Palpitation Verified 11/01/21 20:16 s Assessment & Plan Assessment & Plan (1) Delusional disorder: Status: Acute Code(s): F22 - Delusional disorders Plan Ms. 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 Pt also has been presenting with delusions related to ex-boyfri end implanting microchips in throat and vagina that are interacting with electromagnetic vargas of telephones, TV, computers. She believes ex-boyfriend is tracking her and monitoring her which is very distressing to her. These delusions have been present for the past year and a half. While being medically cleared, pt expressed severe anxiety due to persecutory delusions, passive suicidal ideation. Utox was positive for benzodiazepines, cannabinoids. We discussed risks, benefits and alternative treatment options. PLAN 1. Admit to M3, 15 minutes checks for safety. 2. We discussed either increasing risperidone or trying olanzapine. Pt agreed to try olanzapine 5mg po qhs. Will increase diazepam to 10mg po TID, increase gabapentin to 600mg po TID. 3. obtain collateral information 4. aftercare planning. 12/27- continue current medications. 12/28 continue current medications. 12/29 continue current medications. 12/30: continue current mgmt. T/C increase in HS zyprexa to 20 mg for sleep and psychosis. also T/C mood stabilizer. 12/31: increased zyprexa to 20 mg QHS to target psychotic thought content. if pt has a true delusional disorder, this may be of little help. otherwise continue present mgmt. I spent ___25___ minutes with the patient and/or on the patient floor today, greater than?50% of which was spent counseling/coordinating care. Reason for contiued inpatient stay Substantial Risk for: harm to self, inability to function and rapid decompensation
[2021-12-31] MEDS: Ibuprofen 800 MG TABLET PO ×2 (15:21→22:30)
[2021-12-31] MEDS: OLANZapine 10 MG TABLET 20 MG PO (20:58)
[2021-12-31 21:05] VITALS: BP 172/100; PULSE 57; TEMP 36.3; O2SAT 99
[2021-12-31] MEDS: hydrOXYzine HCL 25 MG TABLET PO (22:26)
[2021-12-31] MEDS: traZODone HCL 50 MG TABLET PO (22:26)
[2022-01-01 09:00] VITALS: BP 129/72; PULSE 59; RESP 16; TEMP 36.6; O2SAT 98
[2022-01-01] MEDS: Gabapentin 600 MG TABLET PO ×3 (09:40→21:28)
[2022-01-01] MEDS: Baclofen 10 MG TABLET PO ×3 (09:40→21:28)
[2022-01-01] MEDS: Propranolol HCL 10 MG TABLET PO (09:40)
[2022-01-01] MEDS: amLODIPine Besylate 5 MG TABLET PO (09:40)
[2022-01-01] MEDS: Midodrine HCl 10 MG TABLET PO ×3 (09:40→18:12)
[2022-01-01] MEDS: diazePAM 5 MG TABLET 10 MG PO ×3 (09:41→22:17)
[2022-01-01] MEDS: Sodium Chloride 0.65 % Nasal 44 ML SPRBTL 1 SPRAY NOSTRIL-B (12:23)
--- NOTE | 2022-01-01 15:19 | P.PNPSI_ITS ---
Subjective Subjective Date of Service: 01/01/22 Reason For Visit: delusions Interim History: calm, cooperative. reports same usual difficulty sleeping last night, no effect whatsoever from change in zyprexa from 10 mg QHS to 20 mg QHS. felt good yesterday, meeting with her father. attended all groups yesterday. trying to learn to tolerate electronics. willing to give new dose of zyprexa some time to work. per staff, dep/anx 01/15. no intent or plan. AH worse at HS. little sleep last night. good appetite. good day yesterday, saw her father. attending groups. Mental Status Exam Mental Status Exam Narrative: Appearance: thin, malnourished, fair hygiene Behavior: cooperative psychomotor: bilat resting and action tremors, visible muscle twitching/spams. Speech:mostly clear, some stuttering, normal rhythm, spontaneous Thought process:tangential at times Thought content:persecutory delusions, frustration about medical conditions and physical deterioration Mood: not assessed Affect: full range, flexible, normo-intense, non-labile SI: none expressed HI: none expressed VH/AH: none expressed Insight/judgment: impaired Memory/cog: alert, oriented x 3. Diagnostics Vital Signs (24Hr): Vital Signs - 24 hr 12/31/21 21:05 01/01/22 09:00 Temperature 97.3 F 97.9 F Pulse Rate 57 59 Respiratory Rate 16 Blood Pressure 172/100 H 129/72 Pulse Oximetry 99 98 Oxygen Delivery Method Room Air Room Air BMI result Body Mass Index 21.2 Labs Results: 12/24/21 17:25 12/26/21 09:02 Imaging Radiology Impressions: ITS Impressions Shoulder X-Ray 12/28/21 18:34 IMPRESSION: Postsurgical changes of the right shoulder with 2 radiopaque markers along the superior anterior margin of the glenoid. Brain MRI 12/30/21 12:55 IMPRESSION: There are no acute intracranial findings. Mild nonspecific T2 signal changes within the supratentorial white matter. No prior studies available for comparison. Medications Medications Current Medications Acetaminophen (Acetaminophen 325 Mg Tablet) 650 mg PO Q6H PRN PRN Reason: Headache/Pain Mild Scale (1-3) Last Admin: 12/27/21 13:21 Dose: 650 mg Al Hydroxide/Mg Hydroxide (Magnesium Hydrox/Alum Hydrox 30 Ml Oral.Susp) 30 ml PO Q6H PRN PRN Reason: Heartburn/Nausea Amlodipine Besylate (Amlodipine Besylate 5 Mg Tablet) 5 mg PO DAILY [facility]; P rotocol Last Admin: 01/01/22 09:40 Dose: 5 mg Baclofen (Baclofen 10 Mg Tablet) 10 mg PO TID [facility] Last Admin: 01/01/22 14:51 Dose: 10 mg Diazepam (Diazepam 5 Mg Tablet) 5 mg PO DAILY PRN PRN Reason: Muscle Spasm Docusate Sodium (Docusate Sodium 100 Mg Capsule) 100 mg PO BID PRN PRN Reason: constipation Fluticasone/Vilanterol (Fluticasone/Vilanterol 100/25 Blst.W.Dev) 1 puff INHALE DAILY [facility] Last Admin: 01/01/22 09:41 Dose: Not Given Gabapentin (Gabapentin 600 Mg Tablet) 600 mg PO TID [facility] Last Admin: 01/01/22 14:51 Dose: 600 mg Hydroxyzine HCl (Hydroxyzine Hcl 25 Mg Tablet) 25 mg PO Q6H PRN PRN Reason: Anxiety Last Admin: 12/31/21 22:26 Dose: 25 mg Ibuprofen (Ibuprofen 800 Mg Tablet) 800 mg PO Q6H PRN PRN Reason: Pain, Moderate (Pain Scale 4-6 Last Admin: 12/31/21 22:30 Dose: 800 mg Magnesium Hydroxide (Milk Of Magnesia 30 Ml Oral.Susp) 30 ml PO DAILY PRN PRN Reason: Constipation Melatonin (Melatonin 3 Mg Tablet) 6 mg PO BEDTIME PRN PRN Reason: Insomnia Last Admin: 12/29/21 22:42 Dose: 6 mg Midodrine (Midodrine Hcl 10 Mg Tablet) 10 mg PO TIDWM [facility] Last Admin: 01/01/22 12:40 Dose: 10 mg Nicotine Polacrilex (Nicotine Polacrilex 2 Mg Gum) 4 mg BUCCAL Q2H PRN PRN Reason: Nicotine Cravings Olanzapine (Olanzapine 10 Mg Tablet) 20 mg PO BEDTIME [facility] Last Admin: 12/31/21 20:58 Dose: 20 mg Propranolol HCl (Propranolol Hcl 10 Mg Tablet) 10 mg PO BID [facility]; Protocol Last Admin: 01/01/22 09:40 Dose: 10 mg Sodium Chloride (Sodium Chloride 0.65 % Nasal 44 Ml Sprbtl) 1 spray NOSTRIL-B Q1H PRN PRN Reason: Dryness Last Admin: 01/01/22 12:23 Dose: 1 spray Trazodone HCl (Trazodone Hcl 50 Mg Tablet) 50 mg PO BEDTIME PRN PRN Reason: Insomnia Last Admin: 12/31/21 22:26 Dose: 50 mg Allergies Allergies Allergy/AdvReac Type Severity Reaction Status Date / Time albuterol AdvReac Palpitation Verified 11/01/21 20:16 s Assessment & Plan Assessment & Plan (1) Delusional disorder: Status: Acute Code(s): F22 - Delusional disorders Plan Ms. 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 Pt also has been presenting with delusions related to ex- boyfriend implanting microchips in throat and vagina that are interacting with e lectromagnetic vargas of telephones, TV, computers. She believes ex-boyfriend is tracking her and monitoring her which is very distressing to her. These delusions have been present for the past year and a half. While being medically cleared, pt expressed severe anxiety due to persecutory delusions, passive suicidal ideation. Utox was positive for benzodiazepines, cannabinoids. We discussed risks, benefits and alternative treatment options. PLAN 1. Admit to M3, 15 minutes checks for safety. 2. We discussed either increasing risperidone or trying olanzapine. Pt agreed to try olanzapine 5mg po qhs. Will increase diazepam to 10mg po TID, increase gabapentin to 600mg po TID. 3. obtain collateral information 4. aftercare planning. 12/27- continue current medications. 12/28 continue current medications. 12/29 continue current medications. 12/30: continue current mgmt. T/C increase in HS zyprexa to 20 mg for sleep and psychosis. also T/C mood stabilizer. 12/31: increased zyprexa to 20 mg QHS to target psychotic thought content. if pt has a true delusional disorder or autoimmune encephalitis, this may be of little help. otherwise continue present mgmt. 01/01: increase in zyprexa last night did not affect sleep, or, apparently psychosis. will continue at higher dose and observe for effect. I spent ___25___ minutes with the patient and/or on the patient floor today, greater than?50% of which was spent counseling/coordinating care. Reason for contiued inpatient stay Substantial Risk for: inability to function and rapid decompensation
[2022-01-01] MEDS: diazePAM 5 MG TABLET PO (20:04)
[2022-01-01] MEDS: Acetaminophen 325 MG TABLET 650 MG PO (20:04)
[2022-01-01 21:25] VITALS: BP 148/69; PULSE 53; TEMP 36.7; O2SAT 97
[2022-01-01] MEDS: OLANZapine 10 MG TABLET 20 MG PO (21:27)
[2022-01-01] MEDS: traZODone HCL 50 MG TABLET PO (22:18)
[2022-01-01] MEDS: Ibuprofen 800 MG TABLET PO (22:18)
[2022-01-01] MEDS: hydrOXYzine HCL 25 MG TABLET PO (22:18)
[2022-01-02] MEDS: traZODone HCL 50 MG TABLET PO ×2 (00:13→22:37)
[2022-01-02 07:00] VITALS: BMI 23.3
[2022-01-02 09:00] VITALS: BP 161/83; PULSE 56; RESP 20; TEMP 36.4; O2SAT 100
[2022-01-02] MEDS: Baclofen 10 MG TABLET PO ×3 (09:13→21:31)
[2022-01-02] MEDS: Gabapentin 600 MG TABLET PO ×3 (09:13→21:30)
[2022-01-02] MEDS: amLODIPine Besylate 5 MG TABLET PO (09:13)
[2022-01-02] MEDS: Midodrine HCl 10 MG TABLET PO ×3 (09:13→16:50)
[2022-01-02] MEDS: diazePAM 5 MG TABLET 10 MG PO ×3 (09:14→21:31)
[2022-01-02] MEDS: hydrOXYzine HCL 25 MG TABLET PO ×3 (10:09→22:37)
[2022-01-02 10:35] VITALS: BP 123/66; PULSE 60; RESP 18; O2SAT 100
[2022-01-02] MEDS: Propranolol HCL 10 MG TABLET PO ×2 (10:36→21:31)
[2022-01-02 12:16] VITALS: BP 108/60; PULSE 54; RESP 18; O2SAT 100
--- NOTE | 2022-01-02 13:54 | P.PNPSI_ITS ---
Subjective Subjective Date of Service: 01/02/22 Reason For Visit: delusions Interim History: reading in the sensory room. discuss midodrine and propranolol params with pt; she is in agreement with current orders. feeling more depressed, poor sleep last night. does acknowledge she slept most of the day yesterday. in agreement to continue current medications for now to see how things trend. per staff, active and appropriate. keeping her up at night. napping in the afternoon. anx/dep 03/17. endorses SI without plan. Mental Status Exam Mental Status Exam Narrative: Appearance: thin, malnourished, fair hygiene Behavior: cooperative psychomotor: bilat resting and action tremors, visible muscle twitching/spams. Speech:mostly clear, some stuttering, normal rhythm, spontaneous Thought process: laregely linear and logical Thought content: no delusional or paranoid material divulged Mood: depressed Affect: full range, flexible, normo-intense, non-labile; not consistent with expressed mood SI: none expressed HI: none expressed VH/AH: none expressed Insight/judgment: impaired Memory/cog: alert, oriented x 3. Diagnostics Vital Signs (24Hr): Vital Signs - 24 hr 01/01/22 21:25 01/02/22 09:00 01/02/22 10:35 Temperature 98.1 F 97.5 F Pulse Rate 53 56 60 Respiratory Rate 20 18 Blood Pressure 148/69 H 161/83 H 123/66 Pulse Oximetry 97 100 100 Oxygen Delivery Method Room Air Room Air Room Air 01/02/22 12:16 Temperature Pulse Rate 54 Respiratory Rate 18 Blood Pressure 108/60 Pulse Oximetry 100 Oxygen Delivery Method Room Air BMI result Body Mass Index 23.3 Labs Results: 12/24/21 17:25 12/26/21 09:02 Imaging Radiology Impressions: ITS Impressions Shoulder X-Ray 12/28/21 18:34 IMPRESSION: Postsurgical changes of the right shoulder with 2 radiopaque markers along the superior anterior margin of the glenoid. Brain MRI 12/30/21 12:55 IMPRESSION: There are no acute intracranial findings. Mild nonspecific T2 signal changes within the supratentorial white matter. No prior studies available for comparison. Medications Medications Current Medications Acetaminophen (Acetaminophen 325 Mg Tablet) 650 mg PO Q6H PRN PRN Reason: Headache/Pain Mild Scale (1-3) Last Admin: 01/01/22 20:04 Dose: 650 mg Al Hydroxide/Mg Hydroxide (Magnesium Hydrox/Alum Hydrox 30 Ml Oral.Susp) 30 ml PO Q6H PRN PRN Reason: Heartburn/Nausea Amlodipine Besylate (Amlodipine Besylate 5 Mg Tablet) 5 mg PO DAILY [facility]; Protocol Last Admin: 01/02/22 09:13 Dose: 5 mg Baclofen (Baclofen 10 Mg Tablet) 10 mg PO TID [facility] Last Admin: 01/02/22 09:13 Dose: 10 mg Diazepam (Diazepam 5 Mg Tablet) 5 mg PO DAILY PRN PRN Reason: Muscle Spasm Last Admin: 01/01/22 20:04 Dose: 5 mg Diazepam (Diazepam 5 Mg Tablet) 10 mg PO TID [facility] Last Admin: 01/02/22 09:14 Dose: 10 mg Docusate Sodium (Docusate Sodium 100 Mg Capsule) 100 mg PO BID PRN PRN Reason: constipation Fluticasone/Vilanterol (Fluticasone/Vilanterol 100/25 Blst.W.Dev) 1 puff INHALE DAILY [facility] Last Admin: 01/02/22 10:09 Dose: Not Given Gabapentin (Gabapentin 600 Mg Tablet) 600 mg PO TID [facility] Last Admin: 01/02/22 09:13 Dose: 600 mg Hydroxyzine HCl (Hydroxyzine Hcl 25 Mg Tablet) 25 mg PO Q6H PRN PRN Reason: Anxiety Last Admin: 01/02/22 10:09 Dose: 25 mg Ibuprofen (Ibuprofen 800 Mg Tablet) 800 mg PO Q6H PRN PRN Reason: Pain, Moderate (Pain Scale 4-6 Last Admin: 01/01/22 22:18 Dose: 800 mg Magnesium Hydroxide (Milk Of Magnesia 30 Ml Oral.Susp) 30 ml PO DAILY PRN PRN Reason: Constipation Melatonin (Melatonin 3 Mg Tablet) 6 mg PO BEDTIME PRN PRN Reason: Insomnia Last Admin: 12/29/21 22:42 Dose: 6 mg Midodrine (Midodrine Hcl 10 Mg Tablet) 10 mg PO TIDWM [facility] Last Admin: 01/02/22 12:27 Dose: 10 mg Nicotine Polacrilex (Nicotine Polacrilex 2 Mg Gum) 4 mg BUCCAL Q2H PRN PRN Reason: Nicotine Cravings Olanzapine (Olanzapine 10 Mg Tablet) 20 mg PO BEDTIME [facility] Last Admin: 01/01/22 21:27 Dose: 20 mg Propranolol HCl (Propranolol Hcl 10 Mg Tablet) 10 mg PO BID [facility] Last Admin: 01/02/22 10:36 Dose: 10 mg Sodium Chloride (Sodium Chloride 0.65 % Nasal 44 Ml Sprbtl) 1 spray NOSTRIL-B Q1H PRN PRN Reason: Dryness Last Admin: 01/01/22 12:23 Dose: 1 spray Trazodone HCl (Trazodone Hcl 50 Mg Tablet) 50 mg PO BEDTIME PRN PRN Reason: Insomnia Last Admin: 01/02/22 00:13 Dose: 50 mg Allergies Allergies Allergy/AdvReac Type Severity Reaction Status Date / Time albuterol AdvReac Palpitation Verified 11/01/21 20:16 s Assessment & Plan Assessment & Plan (1) Delusional disorder: Status: Acute Code(s): F22 - Delusional disorders Plan Ms. 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 initially reporting neck pain, tingling/numbness in feet and inability to swallow pills. Pt also has been presenting with delusions related to ex- boyfriend implanting microchips in throat and vagina that are interacting with e lectromagnetic vargas of telephones, TV, computers. She believes ex-boyfriend is tracking her and monitoring her which is very distressing to her. These delusions have been present for the past year and a half. While being medically cleared, pt expressed severe anxiety due to persecutory delusions, passive suicidal ideation. Utox was positive for benzodiazepines, cannabinoids. We discussed risks, benefits and alternative treatment options. PLAN 1. Admit to M3, 15 minutes checks for safety. 2. We discussed either increasing risperidone or trying olanzapine. Pt agreed to try olanzapine 5mg po qhs. Will increase diazepam to 10mg po TID, increase gabapentin to 600mg po TID. 3. obtain collateral information 4. aftercare planning. 12/27- continue current medications. 12/28 continue current medications. 12/29 continue current medications. 12/30: continue current mgmt. T/C increase in HS zyprexa to 20 mg for sleep and psychosis. also T/C mood stabilizer. 12/31: increased zyprexa to 20 mg QHS to target psychotic thought content. if pt has a true delusional disorder or autoimmune encephalitis, this may be of little help. otherwise continue present mgmt. 01/01: increase in zyprexa last night did not affect sleep, or, apparently psychosis. will continue at higher dose and observe for effect. 01/02: increase in zyprexa 12/31 has not affected sleep. more organized than previously, it seems, though. will continue at higher dose and observe for effect. I spent __25____ minutes with the patient and/or on the patient floor today, greater than?50% of which was spent counseling/coordinating care. Reason for contiued inpatient stay Substantial Risk for: harm to self, inability to function and rapid decompensation
[2022-01-02] MEDS: Milk of Magnesia 30 ML ORAL.SUSP PO (14:36)
[2022-01-02 16:48] VITALS: BP 140/74; PULSE 53; RESP 18; O2SAT 97
[2022-01-02 20:50] VITALS: BP 149/68; PULSE 56; RESP 16; TEMP 36.4; O2SAT 100
[2022-01-02] MEDS: OLANZapine 10 MG TABLET 20 MG PO (21:35)
[2022-01-02] MEDS: Ibuprofen 800 MG TABLET PO (22:37)
[2022-01-02] MEDS: Melatonin 3 MG TABLET 6 MG PO (22:38)
[2022-01-02] MEDS: Sodium Chloride 0.65 % Nasal 44 ML SPRBTL 1 SPRAY NOSTRIL-B (23:17)
[2022-01-03 09:10] VITALS: BP 112/54; PULSE 58; RESP 18; TEMP 36.7; O2SAT 96
[2022-01-03] MEDS: Propranolol HCL 10 MG TABLET PO ×2 (09:19→21:15)
[2022-01-03] MEDS: amLODIPine Besylate 5 MG TABLET PO (09:19)
[2022-01-03] MEDS: diazePAM 5 MG TABLET 10 MG PO ×3 (09:19→21:15)
[2022-01-03] MEDS: Baclofen 10 MG TABLET PO ×3 (09:19→21:15)
[2022-01-03] MEDS: hydrOXYzine HCL 25 MG TABLET PO (09:20)
[2022-01-03] MEDS: Midodrine HCl 10 MG TABLET PO ×3 (09:20→16:28)
[2022-01-03] MEDS: Gabapentin 600 MG TABLET PO ×3 (09:25→21:15)
[2022-01-03 13:05] VITALS: BP 124/84; PULSE 60; RESP 18
--- NOTE | 2022-01-03 14:16 | HO.PSYCHPN ---
Subjective Subjective Date of Service: 01/03/22 Reason For Visit: delusions Interim History: no change in presentation. appears calm, cooperative, smiling, in good spirits, yet says she has been having SI and is feeling quite poorly. also reports not sleeping at night, but staff in room for roommate's 1:1 felt she slept through the night. c/o racing thoughts at night not calming down. AH were bad a couple night ago but have been less the past couple of days. per staff, 12/15 dep/anx. racing thoughts NOC. poor sleep. +SI, no HI or AVH. Mental Status Exam Mental Status Exam Narrative: Appearance: thin, malnourished, fair hygiene Behavior: cooperative psychomotor: bilat resting and action tremors, visible muscle twitching/spams. Speech:mostly clear, some stuttering, normal rhythm, spontaneous Thought process: largely linear and logical Thought content: no delusional or paranoid material divulged Mood: depressed and anxious Affect: full range, flexible, normo-intense, non-labile; not consistent with expressed mood SI: yes in the past 24H HI: none expressed VH/AH: none expressed Insight/judgment: impaired Memory/cog: alert, oriented x 3. Diagnostics Vital Signs (24Hr): Vital Signs - 24 hr 01/02/22 16:48 01/02/22 20:50 01/03/22 09:10 Temperature 97.5 F 98.0 F Pulse Rate 53 56 58 Respiratory Rate 18 16 18 Blood Pressure 140/74 H 149/68 H 112/54 L Pulse Oximetry 97 100 96 Oxygen Delivery Method Room Air Room Air Room Air 01/03/22 13:05 Temperature Pulse Rate 60 Respiratory Rate 18 Blood Pressure 124/84 Pulse Oximetry Oxygen Delivery Method BMI result Body Mass Index 23.3 Labs Results: 12/24/21 17:25 12/26/21 09:02 Imaging Radiology Impressions: ITS Impressions Shoulder X-Ray 12/28/21 18:34 IMPRESSION: Postsurgical changes of the right shoulder with 2 radiopaque markers along the superior anterior margin of the glenoid. Brain MRI 12/30/21 12:55 IMPRESSION: There are no acute intracranial findings. Mild nonspecific T2 signal changes within the supratentorial white matter. No prior studies available for comparison. Medications Medications Current Medications Acetaminophen (Acetaminophen 325 Mg Tablet) 650 mg PO Q6H PRN PRN Reason: Headache/Pain Mild Scale (1-3) Last Admin: 01/01/22 20:04 Dose: 650 mg Al Hydroxide/Mg Hydroxide (Magnesium Hydrox/Alum Hydrox 30 Ml Oral.Susp) 30 ml PO Q6H PRN PRN Reason: Heartburn/Nausea Amlodipine Besylate (Amlodipine Besylate 5 Mg Tablet) 5 mg PO DAILY [facility]; Protocol Last Admin: 01/03/22 09:19 Dose: 5 mg Baclofen (Baclofen 10 Mg Tablet) 10 mg PO TID [facility] Last Admin: 01/03/22 09:19 Dose: 10 mg Diazepam (Diazepam 5 Mg Tablet) 5 mg PO DAILY PRN PRN Reason: Muscle Spasm Last Admin: 01/01/22 20:04 Dose: 5 mg Diazepam (Diazepam 5 Mg Tablet) 10 mg PO TID [facility] Last Admin: 01/03/22 09:19 Dose: 10 mg Docusate Sodium (Docusate Sodium 100 Mg Capsule) 100 mg PO BID PRN PRN Reason: constipation Fluticasone/Vilanterol (Fluticasone/Vilanterol 100/25 Blst.W.Dev) 1 puff INHALE DAILY [facility] Last Admin: 01/03/22 09:18 Dose: Not Given Gabapentin (Gabapentin 600 Mg Tablet) 600 mg PO TID [facility] Last Admin: 01/03/22 09:25 Dose: 600 mg Hydroxyzine HCl (Hydroxyzine Hcl 25 Mg Tablet) 25 mg PO Q6H PRN PRN Reason: Anxiety Last Admin: 01/03/22 09:20 Dose: 25 mg Ibuprofen (Ibuprofen 800 Mg Tablet) 800 mg PO Q6H PRN PRN Reason: Pain, Moderate (Pain Scale 4-6 Last Admin: 01/02/22 22:37 Dose: 800 mg Magnesium Hydroxide (Milk Of Magnesia 30 Ml Oral.Susp) 30 ml PO DAILY PRN PRN Reason: Constipation Last Admin: 01/02/22 14:36 Dose: 30 ml Melatonin (Melatonin 3 Mg Tablet) 6 mg PO BEDTIME PRN PRN Reason: Insomnia Last Admin: 01/02/22 22:38 Dose: 6 mg Midodrine (Midodrine Hcl 10 Mg Tablet) 10 mg PO TIDWM [facility] Last Admin: 01/03/22 13:06 Dose: 10 mg Nicotine Polacrilex (Nicotine Polacrilex 2 Mg Gum) 4 mg BUCCAL Q2H PRN PRN Reason: Nicotine Cravings Olanzapine (Olanzapine 10 Mg Tablet) 20 mg PO BEDTIME [facility] Last Admin: 01/02/22 21:35 Dose: 20 mg Propranolol HCl (Propranolol Hcl 10 Mg Tablet) 10 mg PO BID [facility] Last Admin: 01/03/22 09:19 Dose: 10 mg Sodium Chloride (Sodium Chloride 0.65 % Nasal 44 Ml Sprbtl) 1 spray NOSTRIL-B Q1H PRN PRN Reason: Dryness Last Admin: 01/02/22 23:17 Dose: 1 spray Trazodone HCl (Trazodone Hcl 50 Mg Tablet) 50 mg PO BEDTIME PRN PRN Reason: Insomnia Last Admin: 01/02/22 22:37 Dose: 50 mg Allergies Allergies Allergy/AdvReac Type Severity Reaction Status Date / Time albuterol AdvReac Palpitation Verified 11/01/21 20:16 s Assessment & Plan Assessment & Plan (1) Delusional disorder: Status: Acute Code(s): F22 - Delusional disorders Plan Ms. 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 Pt also has been presenting with delusions related to ex-boyfriend implanting microchips in throat and vagina that are interacting with electromagnetic vargas of telephones, TV, computers. She believes ex-boyfriend is tracking her and monitoring her which is very distressing to her. These delusions have been present for the past year and a half. While being medically cleared, pt expressed severe anxiety due to persecutory delusions, passive suicidal ideation. Utox was positive for benzodiazepines, cannabinoids. We discussed risks, benefits and alternative treatment options. PLAN 1. Admit to M3, 15 minutes checks for safety. 2. We discussed either increasing risperidone or trying olanzapine. Pt agreed to try olanzapine 5mg po qhs. Will increase diazepam to 10mg po TID, increase gabapentin to 600mg po TID. 3. obtain collateral information 4. aftercare planning. 12/27- continue current medications. 12/28 continue current medications. 12/29 continue current medications. 12/30: continue current mgmt. T/C increase in HS zyprexa to 20 mg for sleep and psychosis. also T/C mood stabilizer. 12/31: increased zyprexa to 20 mg QHS to target psychotic thought content. if pt has a true delusional disorder or autoimmune encephalitis, this may be of little help. otherwise continue present mgmt. 01/01: increase in zyprexa last night did not affect sleep, or, apparently psychosis. will continue at higher dose and observe for effect. 01/02: increase in zyprexa 12/31 has not affected sleep. more organized than previously, it seems, though. will continue at higher dose and observe for effect. 01/03: pt states she is not sleeping, staff in room for 1:1 on roommate states she appeared to sleep. continue current mgmt. seems less concerned about my electronics, doesn't bring up any delusional material. I spent __25____ minutes with the patient and/or on the patient floor today, greater than?50% of which was spent counseling/coordinating care. Reason for contiued inpatient stay Substantial Risk for: inability to function and rapid decompensation
[2022-01-03] MEDS: diazePAM 5 MG TABLET PO (16:28)
[2022-01-03 20:54] VITALS: BP 130/73; PULSE 62; TEMP 36.6; O2SAT 100
[2022-01-03] MEDS: OLANZapine 10 MG TABLET 20 MG PO (21:15)
[2022-01-03] MEDS: Ibuprofen 800 MG TABLET PO (22:40)
[2022-01-03] MEDS: traZODone HCL 50 MG TABLET PO (22:40)
[2022-01-03] MEDS: Melatonin 3 MG TABLET 6 MG PO (22:40)
[2022-01-04 09:45] VITALS: BP 144/78; PULSE 64; RESP 16; TEMP 36.3; O2SAT 98
[2022-01-04] MEDS: Ibuprofen 800 MG TABLET PO ×2 (09:52→22:50)
[2022-01-04] MEDS: diazePAM 5 MG TABLET 10 MG PO ×3 (09:52→21:09)
[2022-01-04] MEDS: hydrOXYzine HCL 25 MG TABLET PO ×2 (09:52→16:00)
[2022-01-04] MEDS: amLODIPine Besylate 5 MG TABLET PO (09:53)
[2022-01-04] MEDS: Baclofen 10 MG TABLET PO ×3 (09:53→21:08)
[2022-01-04] MEDS: Propranolol HCL 10 MG TABLET PO ×2 (09:53→21:09)
[2022-01-04] MEDS: Midodrine HCl 10 MG TABLET PO ×2 (09:53→18:18)
[2022-01-04] MEDS: Gabapentin 600 MG TABLET PO ×3 (09:53→21:09)
[2022-01-04] MEDS: Fluticasone/Vilanterol 100/25 BLST.W.DEV 1 PUFF INHALE (10:06)
[2022-01-04] MEDS: Sodium Chloride 0.65 % Nasal 44 ML SPRBTL 1 SPRAY NOSTRIL-B (10:06)
--- NOTE | 2022-01-04 13:14 | HO.PSYCHPN ---
Subjective Subjective Date of Service: 01/04/22 Reason For Visit: delusions Subjective Notes: Conditional Voluntary Interim History: The nursing staff reported the patient has some auditory hallucinations voices stating why she was here. She states that she feels safe in the unit. On interview the patient reports that she is doing well and she is compliant with medications. Mental Status Exam Mental Status Exam Patient Appearance: Well Grooomed Patient Orientation: Person and Situation Level of Consciousness: Awake Patient Behavior: Cooperative and Passive Mood Description: Withdrawn Affect Description: Constricted Ability to Follow Directions: Good Speech Pattern: Clear Hallucinations: Auditory Delusions: Paranoid Ideation Thought Process: Distracted Thought Content: positive for Circumstantial Judgement: Fair Diagnostics Vital Signs (24Hr): Vital Signs - 24 hr 01/03/22 20:54 01/04/22 09:45 Temperature 97.9 F 97.4 F Pulse Rate 62 64 Respiratory Rate 16 Blood Pressure 130/73 144/78 H Pulse Oximetry 100 98 Oxygen Delivery Method Room Air Room Air BMI result Body Mass Index 23.3 Labs Results: 12/24/21 17:25 12/26/21 09:02 Imaging Radiology Impressions: ITS Impressions Shoulder X-Ray 12/28/21 18:34 IMPRESSION: Postsurgical changes of the right shoulder with 2 radiopaque markers along the superior anterior margin of the glenoid. Brain MRI 12/30/21 12:55 IMPRESSION: There are no acute intracranial findings. Mild nonspecific T2 signal changes within the supratentorial white matter. No prior studies available for comparison. Medications Medications Current Medications Acetaminophen (Acetaminophen 325 Mg Tablet) 650 mg PO Q6H PRN PRN Reason: Headache/Pain Mild Scale (1-3) Last Admin: 01/01/22 20:04 Dose: 650 mg Al Hydroxide/Mg Hydroxide (Magnesium Hydrox/Alum Hydrox 30 Ml Oral.Susp) 30 ml PO Q6H PRN PRN Reason: Heartburn/Nausea Amlodipine Besylate (Amlodipine Besylate 5 Mg Tablet) 5 mg PO DAILY [facility]; Protocol Last Admin: 01/04/22 09:53 Dose: 5 mg Baclofen (Baclofen 10 Mg Tablet) 10 mg PO TID [facility] Last Admin: 01/04/22 09:53 Dose: 10 mg Diazepam (Diazepam 5 Mg Tablet) 5 mg PO DAILY PRN PRN Reason: Muscle Spasm Last Admin: 01/03/22 16:28 Dose: 5 mg Diazepam (Diazepam 5 Mg Tablet) 10 mg PO TID [facility] Last Admin: 01/04/22 09:52 Dose: 10 mg Docusate Sodium (Docusate Sodium 100 Mg Capsule) 100 mg PO BID PRN PRN Reason: constipation Fluticasone/Vilanterol (Fluticasone/Vilanterol 100/25 Blst.W.Dev) 1 puff INHALE DAILY [facility] Last Admin: 01/04/22 10:06 Dose: 1 puff Gabapentin (Gabapentin 600 Mg Tablet) 600 mg PO TID [facility] Last Admin: 01/04/22 09:53 Dose: 600 mg Hydroxyzine HCl (Hydroxyzine Hcl 25 Mg Tablet) 25 mg PO Q6H PRN PRN Reason: Anxiety Last Admin: 01/04/22 09:52 Dose: 25 mg Ibuprofen (Ibuprofen 800 Mg Tablet) 800 mg PO Q6H PRN PRN Reason: Pain, Moderate (Pain Scale 4-6 Last Admin: 01/04/22 09:52 Dose: 800 mg Magnesium Hydroxide (Milk Of Magnesia 30 Ml Oral.Susp) 30 ml PO DAILY PRN PRN Reason: Constipation Last Admin: 01/02/22 14:36 Dose: 30 ml Melatonin (Melatonin 3 Mg Tablet) 6 mg PO BEDTIME PRN PRN Reason: Insomnia Last Admin: 01/03/22 22:40 Dose: 6 mg Midodrine (Midodrine Hcl 10 Mg Tablet) 10 mg PO TIDWM [facility] Last Admin: 01/04/22 09:53 Dose: 10 mg Nicotine Polacrilex (Nicotine Polacrilex 2 Mg Gum) 4 mg BUCCAL Q2H PRN PRN Reason: Nicotine Cravings Olanzapine (Olanzapine 10 Mg Tablet) 20 mg PO BEDTIME [facility] Last Admin: 01/03/22 21:15 Dose: 20 mg Propranolol HCl (Propranolol Hcl 10 Mg Tablet) 10 mg PO BID [facility] Last Admin: 01/04/22 09:53 Dose: 10 mg Sodium Chloride (Sodium Chloride 0.65 % Nasal 44 Ml Sprbtl) 1 spray NOSTRIL-B Q1H PRN PRN Reason: Dryness Last Admin: 01/04/22 10:06 Dose: 1 spray Trazodone HCl (Trazodone Hcl 50 Mg Tablet) 50 mg PO BEDTIME PRN PRN Reason: Insomnia Last Admin: 01/03/22 22:40 Dose: 50 mg Allergies Allergies Allergy/AdvReac Type Severity Reaction Status Date / Time albuterol AdvReac Palpitation Verified 11/01/21 20:16 s Assessment & Plan Assessment & Plan (1) Delusional disorder: Status: Acute Code(s): F22 - Delusional disorders Plan Ms. 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 Pt also has been presenting with delusions related to ex-boyfriend implanting microchips in throat and vagina that are interacting with electromagnetic vargas of telephones, TV, computers. She believes ex-boyfriend is tracking her and monitoring her which is very distressing to her. These delusions have been present for the past year and a half. While being medically cleared, pt expressed severe anxiety due to persecutory delusions, passive suicidal ideation. Utox was positive for benzodiazepines, cannabinoids. We discussed risks, benefits and alternative treatment options. PLAN 1. Admit to M3, 15 minutes checks for safety. 2. We discussed either increasing risperidone or trying olanzapine. Pt agreed to try olanzapine 5mg po qhs. Will increase diazepam to 10mg po TID, increase gabapentin to 600mg po TID. 3. obtain collateral information 4. aftercare planning. 12/27- continue current medications. 12/28 continue current medications. 12/29 continue current medications. 12/30: continue current mgmt. T/C increase in HS zyprexa to 20 mg for sleep and psychosis. also T/C mood stabilizer. 12/31: increased zyprexa to 20 mg QHS to target psychotic thought content. if pt has a true delusional disorder or autoimmune encephalitis, this may be of little help. otherwise continue present mgmt. 01/01: increase in zyprexa last night did not affect sleep, or, apparently psychosis. will continue at higher dose and observe for effect. 01/02: increase in zyprexa 12/31 has not affected sleep. more organized than previously, it seems, though. will continue at higher dose and observe for effect. 01/03: pt states she is not sleeping, staff in room for 1:1 on roommate states she appeared to sleep. continue current mgmt. seems less concerned about my electronics, doesn't bring up any delusional material. 01/04: stable. I spent ___20___ minutes with the patient and/or on the patient floor today, greater than?50% of which was spent counseling/coordinating care. Reason for contiued inpatient stay Substantial Risk for: inability to function, rapid decompensation and med/psych decompensation
[2022-01-04 13:26] VITALS: BP 154/70; PULSE 55
[2022-01-04 21:04] VITALS: BP 147/65; PULSE 95; TEMP 36.6; O2SAT 99
[2022-01-04] MEDS: OLANZapine 10 MG TABLET 20 MG PO (21:08)
[2022-01-04] MEDS: Melatonin 3 MG TABLET 6 MG PO (22:50)
[2022-01-04] MEDS: Milk of Magnesia 30 ML ORAL.SUSP PO (22:51)
[2022-01-04] MEDS: traZODone HCL 50 MG TABLET PO (22:51)
[2022-01-05] MEDS: traZODone HCL 50 MG TABLET PO (01:02)
[2022-01-05 09:45] VITALS: BP 123/67; PULSE 56; RESP 16; TEMP 36.3; O2SAT 98
[2022-01-05] MEDS: Midodrine HCl 10 MG TABLET PO ×2 (09:58→13:44)
[2022-01-05] MEDS: Propranolol HCL 10 MG TABLET PO ×2 (09:58→21:13)
[2022-01-05] MEDS: Gabapentin 600 MG TABLET PO ×3 (09:58→21:13)
[2022-01-05] MEDS: diazePAM 5 MG TABLET 10 MG PO ×3 (09:59→21:13)
[2022-01-05] MEDS: Fluticasone/Vilanterol 100/25 BLST.W.DEV 1 PUFF INHALE (09:59)
[2022-01-05] MEDS: Baclofen 10 MG TABLET PO ×3 (09:59→21:13)
[2022-01-05] MEDS: amLODIPine Besylate 5 MG TABLET PO (09:59)
[2022-01-05] MEDS: Ibuprofen 800 MG TABLET PO ×2 (10:00→23:20)
--- NOTE | 2022-01-05 12:50 | P.PNPSI_ITS ---
Subjective Subjective Date of Service: 01/05/22 Reason For Visit: delusions Subjective Notes: Conditional Voluntary Interim History: The nursing staff reported the patient has been anxious and dysphoric, she was very angry with a peer who was very disruptive in the milieu. He has been social and pleasant he has used Atarax p.r.n.. Today in the morning she was doing fine, she states that she is anxious and depressed but able to cope with the stressors. Mental Status Exam Mental Status Exam Patient Appearance: Appropriate Patient Orientation: Person and Situation Level of Consciousness: Awake Patient Behavior: Cooperative Mood Description: Labile Affect Description: Constricted Patient Cognition Impaired: No Ability to Follow Directions: Good Speech Pattern: Clear Hallucinations: None Delusions: Not Present Thought Process: Goal Oriented Thought Content: positive for Linear Judgement: Fair Diagnostics Vital Signs (24Hr): Vital Signs - 24 hr 01/04/22 13:26 01/04/22 21:04 01/05/22 09:45 Temperature 97.9 F 97.4 F Pulse Rate 55 95 56 Respiratory Rate 16 Blood Pressure 154/70 H 147/65 H 123/67 Pulse Oximetry 99 98 Oxygen Delivery Method Room Air Room Air BMI result Body Mass Index 23.3 Labs Results: 12/24/21 17:25 12/26/21 09:02 Imaging Radiology Impressions: ITS Impressions Shoulder X-Ray 12/28/21 18:34 IMPRESSION: Postsurgical changes of the right shoulder with 2 radiopaque markers along the superior anterior margin of the glenoid. Brain MRI 12/30/21 12:55 IMPRESSION: There are no acute intracranial findings. Mild nonspecific T2 signal changes within the supratentorial white matter. No prior studies available for comparison. Medications Medications Current Medications Acetaminophen (Acetaminophen 325 Mg Tablet) 650 mg PO Q6H PRN PRN Reason: Headache/Pain Mild Scale (1-3) Last Admin: 01/01/22 20:04 Dose: 650 mg Al Hydroxide/Mg Hydroxide (Magnesium Hydrox/Alum Hydrox 30 Ml Oral.Susp) 30 ml PO Q6H PRN PRN Reason: Heartburn/Nausea Amlodipine Besylate (Amlodipine Besylate 5 Mg Tablet) 5 mg PO DAILY [facility]; Pr otocol Last Admin: 01/05/22 09:59 Dose: 5 mg Baclofen (Baclofen 10 Mg Tablet) 10 mg PO TID [facility] Last Admin: 07/31/22 09:59 Dose: 10 mg Diazepam (Diazepam 5 Mg Tablet) 5 mg PO DAILY PRN PRN Reason: Muscle Spasm Last Admin: 01/03/22 16:28 Dose: 5 mg Diazepam (Diazepam 5 Mg Tablet) 10 mg PO TID [facility] Last Admin: 01/05/22 09:59 Dose: 10 mg Docusate Sodium (Docusate Sodium 100 Mg Capsule) 100 mg PO BID PRN PRN Reason: constipation Fluticasone/Vilanterol (Fluticasone/Vilanterol 100/25 Blst.W.Dev) 1 puff INHALE DAILY [facility] Last Admin: 01/05/22 09:59 Dose: 1 puff Gabapentin (Gabapentin 600 Mg Tablet) 600 mg PO TID [facility] Last Admin: 01/05/22 09:58 Dose: 600 mg Hydroxyzine HCl (Hydroxyzine Hcl 25 Mg Tablet) 25 mg PO Q6H PRN PRN Reason: Anxiety Last Admin: 01/04/22 16:00 Dose: 25 mg Ibuprofen (Ibuprofen 800 Mg Tablet) 800 mg PO Q6H PRN PRN Reason: Pain, Moderate (Pain Scale 4-6 Last Admin: 01/05/22 10:00 Dose: 800 mg Magnesium Hydroxide (Milk Of Magnesia 30 Ml Oral.Susp) 30 ml PO DAILY PRN PRN Reason: Constipation Last Admin: 01/04/22 22:51 Dose: 30 ml Melatonin (Melatonin 3 Mg Tablet) 6 mg PO BEDTIME PRN PRN Reason: Insomnia Last Admin: 01/04/22 22:50 Dose: 6 mg Midodrine (Midodrine Hcl 10 Mg Tablet) 10 mg PO TIDWM [facility] Last Admin: 01/05/22 09:58 Dose: 10 mg Nicotine Polacrilex (Nicotine Polacrilex 2 Mg Gum) 4 mg BUCCAL Q2H PRN PRN Reason: Nicotine Cravings Olanzapine (Olanzapine 10 Mg Tablet) 20 mg PO BEDTIME [facility] Last Admin: 01/04/22 21:08 Dose: 20 mg Propranolol HCl (Propranolol Hcl 10 Mg Tablet) 10 mg PO BID [facility] Last Admin: 01/05/22 09:58 Dose: 10 mg Sodium Chloride (Sodium Chloride 0.65 % Nasal 44 Ml Sprbtl) 1 spray NOSTRIL-B Q1H PRN PRN Reason: Dryness Last Admin: 01/04/22 10:06 Dose: 1 spray Trazodone HCl (Trazodone Hcl 50 Mg Tablet) 50 mg PO BEDTIME PRN PRN Reason: Insomnia Last Admin: 01/05/22 01:02 Dose: 50 mg Allergies Allergies Allergy/AdvReac Type Severity Reaction Status Date / Time albuterol AdvReac Palpitation Verified 11/01/21 20:16 s Assessment & Plan Assessment & Plan (1) Delusional disorder: Status: Acute Code(s): F22 - Delusional disorders Plan Ms. 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 Pt also has been presenting with delusions related to ex-boyfr iend implanting microchips in throat and vagina that are interacting with electromagnetic vargas of telephones, TV, computers. She believes ex-boyfriend is tracking her and monitoring her which is very distressing to her. These delusions have been present for the past year and a half. While being medically cleared, pt expressed severe anxiety due to persecutory delusions, passive suicidal ideation. Utox was positive for benzodiazepines, cannabinoids. We discussed risks, benefits and alternative treatment options. PLAN 1. Admit to M3, 15 minutes checks for safety. 2. We discussed either increasing risperidone or trying olanzapine. Pt agreed to try olanzapine 5mg po qhs. Will increase diazepam to 10mg po TID, increase gabapentin to 600mg po TID. 3. obtain collateral information 4. aftercare planning. 12/27- continue current medications. 12/28 continue current medications. 12/29 continue current medications. 12/30: continue current mgmt. T/C increase in HS zyprexa to 20 mg for sleep and psychosis. also T/C mood stabilizer. 12/31: increased zyprexa to 20 mg QHS to target psychotic thought content. if pt has a true delusional disorder or autoimmune encephalitis, this may be of little help. otherwise continue present mgmt. 01/01: increase in zyprexa last night did not affect sleep, or, apparently psychosis. will continue at higher dose and observe for effect. 01/02: increase in zyprexa 12/31 has not affected sleep. more organized than previously, it seems, though. will continue at higher dose and observe for effect. 01/03: pt states she is not sleeping, staff in room for 1:1 on roommate states she appeared to sleep. continue current mgmt. seems less concerned about my el ectronics, doesn't bring up any delusional material. 01/04: stable. 01/05 stable I spent __20____ minutes with the patient and/or on the patient floor today, greater than?50% of which was spent counseling/coordinating care. Reason for contiued inpatient stay Substantial Risk for: inability to function, rapid decompensation and med/psych decompensation
[2022-01-05] MEDS: Magnesium Citrate 300 ML SOLUTION PO (13:44)
[2022-01-05] MEDS: Sodium Chloride 0.65 % Nasal 44 ML SPRBTL 1 SPRAY NOSTRIL-B (15:33)
[2022-01-05] MEDS: Acetaminophen 325 MG TABLET 650 MG PO (15:43)
[2022-01-05 18:00] VITALS: BP 183/94; PULSE 63
[2022-01-05] MEDS: diazePAM 5 MG TABLET PO (18:36)
[2022-01-05] MEDS: OLANZapine 10 MG TABLET 20 MG PO (21:12)
[2022-01-05] MEDS: Melatonin 3 MG TABLET 6 MG PO (23:21)
[2022-01-05] MEDS: hydrOXYzine HCL 25 MG TABLET PO (23:21)
--- NOTE | 2022-01-06 | ECG_ITS ---
Test Reason : cp Blood Pressure : / mmHG Vent. Rate : 058 BPM Atrial Rate : 058 BPM P-R Int : 122 ms QRS Dur : 090 ms QT Int : 410 ms P-R-T Axes : 021 072 046 degrees QTc Int : 402 ms Sinus bradycardia Otherwise normal ECG When compared with ECG of 03-NOV-2021 09:28, ST no longer elevated in Inferior leads QT has shortened Referred By: Maranda Malik Electronically Signed By:NATALIE ARREGUIN MD
[2022-01-06 09:20] VITALS: BP 142/65; PULSE 60; RESP 18; TEMP 36.3; O2SAT 100
[2022-01-06] MEDS: Baclofen 10 MG TABLET PO ×3 (09:26→21:49)
[2022-01-06] MEDS: amLODIPine Besylate 5 MG TABLET PO (09:26)
[2022-01-06] MEDS: Gabapentin 600 MG TABLET PO ×3 (09:26→21:49)
[2022-01-06] MEDS: Propranolol HCL 10 MG TABLET PO ×2 (09:26→21:49)
[2022-01-06] MEDS: diazePAM 5 MG TABLET 10 MG PO ×3 (09:27→21:49)
[2022-01-06] MEDS: Midodrine HCl 10 MG TABLET PO ×2 (09:27→16:33)
[2022-01-06 13:14] VITALS: BP 165/74; PULSE 60; RESP 20; O2SAT 99
--- NOTE | 2022-01-06 13:33 | P.PNPSI_ITS ---
Subjective Subjective Date of Service: 01/06/22 Reason For Visit: delusions Subjective Notes: Conditional Voluntary Interim History: Pt in bed. She reports feeling tired, having good days and bad days related to chronic muscle pain. She reports intermittent SI, but denies any plan or intent. No overt delusional content reported but when asked she does continue to report that she thinks chip has been implanted. Per nursing, no behavioral concerns. Medication Compliance: Yes Side effects from medications: No Review of Systems Review of Systems Constitutional: No Fever, No Chills ENT/Mouth: No Ear Pain, No Hoarseness, No sore throat Eyes: No Eye Pain, No Swelling, No Redness, No Foreign Body Cardiovascular: No Chest Pain, No SOB Respiratory: No Cough, No Dyspnea Gastrointestinal: No Nausea, No Vomiting, No Diarrhea, No abdominal Pain Genitourinary: Positive constipation, No Dysuria, No Hematuria Musculoskeletal: positive neck pain, No Myalgias, No Joint Swelling Skin: No Skin lacerations, No rash Neuro: No Weakness, No Numbness, No Paresthesias, No Loss of Consciousness, No Dizziness, positive Headache Psych: Positive Anxiety/Panic, No Depression, no SI HI Heme/Lymph: no easy bruising, no Lymphadenopathy Endocrine: No Polyuria, No Polydipsia Yes all other systems are reviewed and are negative Mental Status Exam Mental Status Exam Narrative: Appearance: thin, malnourished, fair hygiene Behavior: cooperative psychomotor: bilat resting and action tremors, visible muscle twitching/spams. Speech:mostly clear, some stuttering, normal rhythm, spontaneous Thought process: largely linear and logical Thought content: no delusional or paranoid material divulged Mood: depressed and anxious Affect: full range, flexible, normo-intense, non-labile; not consistent with expressed mood SI: yes in the past 24H HI: none expressed VH/AH: none expressed Insight/judgment: impaired Memory/cog: alert, oriented x 3. Diagnostics Vital Signs (24Hr): Vital Signs - 24 hr 01/05/22 18:00 01/06/22 09:20 01/06/22 13:14 Temperature 97.3 F Pulse Rate 63 60 60 Respiratory Rate 18 20 Blood Pressure 183/94 H 142/65 H 165/74 H Pulse Oximetry 100 99 Oxygen Delivery Method Room Air Room Air BMI result Body Mass Index 23.3 Labs Results: 12/24/21 17:25 12/26/21 09:02 Imaging Radiology Impressions: ITS Impressions Shoulder X-Ray 12/28/21 18:34 IMPRESSION: Postsurgical changes of the right shoulder with 2 radiopaque markers along the superior anterior margin of the glenoid. Brain MRI 12/30/21 12:55 IMPRESSION: There are no acute intracranial findings. Mild nonspecific T2 signal changes within the supratentorial white matter. No prior studies available for comparison. Medications Medications Current Medications Acetaminophen (Acetaminophen 325 Mg Tablet) 650 mg PO Q6H PRN PRN Reason: Headache/Pain Mild Scale (1-3) Last Admin: 01/05/22 15:43 Dose: 650 mg Al Hydroxide/Mg Hydroxide (Magnesium Hydrox/Alum Hydrox 30 Ml Oral.Susp) 30 ml PO Q6H PRN PRN Reason: Heartburn/Nausea Amlodipine Besylate (Amlodipine Besylate 5 Mg Tablet) 5 mg PO DAILY [facility]; Protocol Last Admin: 01/06/22 09:26 Dose: 5 mg Baclofen (Baclofen 10 Mg Tablet) 10 mg PO TID [facility] Last Admin: 01/06/22 09:26 Dose: 10 mg Diazepam (Diazepam 5 Mg Tablet) 5 mg PO DAILY PRN PRN Reason: Muscle Spasm Last Admin: 01/05/22 18:36 Dose: 5 mg Diazepam (Diazepam 5 Mg Tablet) 10 mg PO TID [facility] Last Admin: 01/06/22 09:27 Dose: 10 mg Docusate Sodium (Docusate Sodium 100 Mg Capsule) 100 mg PO BID PRN PRN Reason: constipation Fluticasone/Vilanterol (Fluticasone/Vilanterol 100/25 Blst.W.Dev) 1 puff INHALE DAILY [facility] Last Admin: 01/06/22 13:15 Dose: Not Given Gabapentin (Gabapentin 600 Mg Tablet) 600 mg PO TID [facility] Last Admin: 01/06/22 09:26 Dose: 600 mg Hydroxyzine HCl (Hydroxyzine Hcl 25 Mg Tablet) 25 mg PO Q6H PRN PRN Reason: Anxiety Last Admin: 01/05/22 23:21 Dose: 25 mg Ibuprofen (Ibuprofen 800 Mg Tablet) 800 mg PO Q6H PRN PRN Reason: Pain, Moderate (Pain Scale 4-6 Last Admin: 01/05/22 23:20 Dose: 800 mg Magnesium Hydroxide (Milk Of Magnesia 30 Ml Oral.Susp) 30 ml PO DAILY PRN PRN Reason: Constipation Last Admin: 01/04/22 22:51 Dose: 30 ml Melatonin (Melatonin 3 Mg Tablet) 6 mg PO BEDTIME PRN PRN Reason: Insomnia Last Admin: 01/05/22 23:21 Dose: 6 mg Midodrine (Midodrine Hcl 10 Mg Tablet) 10 mg PO TIDWM [facility] Last Admin: 01/06/22 13:16 Dose: Not Given Nicotine Polacrilex (Nicotine Polacrilex 2 Mg Gum) 4 mg BUCCAL Q2H PRN PRN Reason: Nicotine Cravings Olanzapine (Olanzapine 10 Mg Tablet) 20 mg PO BEDTIME [facility] Last Admin: 01/05/22 21:12 Dose: 20 mg Propranolol HCl (Propranolol Hcl 10 Mg Tablet) 10 mg PO BID [facility] Last Admin: 01/06/22 09:26 Dose: 10 mg Sodium Chloride (Sodium Chloride 0.65 % Nasal 44 Ml Sprbtl) 1 spray NOSTRIL-B Q1H PRN PRN Reason: Dryness Last Admin: 01/05/22 15:33 Dose: 1 spray Trazodone HCl (Trazodone Hcl 50 Mg Tablet) 50 mg PO BEDTIME PRN PRN Reason: Insomnia Last Admin: 01/05/22 01:02 Dose: 50 mg Allergies Allergies Allergy/AdvReac Type Severity Reaction Status Date / Time albuterol AdvReac Palpitation Verified 11/01/21 20:16 s Assessment & Plan Assessment & Plan (1) Delusional disorder: Status: Acute Code(s): F22 - Delusional disorders Plan Ms. 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 Pt also has been presenting with delusions related to ex- boyfriend implanting microchips in throat and vagina that are interacting with electromagnetic vargas of telephones, TV, computers. She believes ex-boyfriend is tracking her and monitoring her which is very distressing to her. These delusions have been present for the past year and a half. While being medically cleared, pt expressed severe anxiety due to persecutory delusions, passive suicidal ideation. Utox was positive for benzodiazepines, cannabinoids. We discussed risks, benefits and alternative treatment options. PLAN 1. Admit to M3, 15 minutes checks for safety. 2. We discussed either increasing risperidone or trying olanzapine. Pt agreed to try olanzapine 5mg po qhs. Will increase diazepam to 10mg po TID, increase gabapentin to 600mg po TID. 3. obtain collateral information 4. aftercare planning. 12/27- continue current medications. 12/28 continue current medications. 12/29 continue current medications. 12/30: continue current mgmt. T/C increase in HS zyprexa to 20 mg for sleep and psychosis. also T/C mood stabilizer. 12/31: increased zyprexa to 20 mg QHS to target psychotic thought content. if pt has a true delusional disorder or autoimmune encephalitis, this may be of little help. otherwise continue present mgmt. 01/01: increase in zyprexa last night did not affect sleep, or, apparently psychosis. will continue at higher dose and observe for effect. 01/02: increase in zyprexa 12/31 has not affected sleep. more organized than previously, it seems, though. will continue at higher dose and observe for effect. 01/03: pt states she is not sleeping, staff in room for 1:1 on roommate states she appeared to sleep. continue current mgmt. seems less concerned about my electronics, doesn't bring up any delusional material. 01/04: stable. 01/05 stable 01/06. continue current medications. I spent minutes with the patient and/or on the patient floor today, greater than?50% of which was spent counseling/coordinating care. Reason for contiued inpatient stay Substantial Risk for: inability to function
[2022-01-06 16:32] VITALS: BP 137/62; PULSE 61; RESP 20; O2SAT 100
[2022-01-06 16:41] VITALS: BMI 24.3
--- NOTE | 2022-01-06 16:45 | PC.NURSE ---
Patient reporting pedal edema over the past few days- mild edema noted. Weight obtained- patient appears to have gaibed ~2 kg since last week. Reviewed w/ provider.
--- NOTE | 2022-01-06 17:35 | PM.PSYCN ---
History of Present Illness Chief Complaint: delusions HPI [facility], [facility]opharm [facility] 11/19/21. Trials: risperidone, seroquel [facility] Medical History (Updated 12/27/21 @ 15:05 by Jayla Canales) Bowel perforation COPD (chronic obstructive pulmonary disease) Delusional disorder Depression Hypertension Lupus Pneumonia Stiff-man syndrome Surgical History History of cholecystectomy History of mandibular surgery Family History: mental illness neurological illness Social History: Born in [place]. Moved to [place] at age 15. One son , one son local. Trauma History: affirms Diagnostics Vital Signs (24Hr): Vital Signs - 24 hr 01/05/22 18:00 01/06/22 09:20 01/06/22 13:14 Temperature 97.3 F Pulse Rate 63 60 60 Respiratory Rate 18 20 Blood Pressure 183/94 H 142/65 H 165/74 H Pulse Oximetry 100 99 Oxygen Delivery Method Room Air Room Air 01/06/22 16:32 Temperature Pulse Rate 61 Respiratory Rate 20 Blood Pressure 137/62 Pulse Oximetry 100 Oxygen Delivery Method Room Air BMI result Body Mass Index 24.3 Labs Results: 12/24/21 17:25 12/26/21 09:02 Imaging Radiology Impressions: ITS Impressions Shoulder X-Ray 12/28/21 18:34 IMPRESSION: Postsurgical changes of the right shoulder with 2 radiopaque markers along the superior anterior margin of the glenoid. Brain MRI 12/30/21 12:55 IMPRESSION: There are no acute intracranial findings. Mild nonspecific T2 signal changes within the supratentorial white matter. No prior studies available for comparison. Medications Medications Current Medications Acetaminophen (Acetaminophen 325 Mg Tablet) 650 mg PO Q6H PRN PRN Reason: Headache/Pain Mild Scale (1-3) Last Admin: 01/05/22 15:43 Dose: 650 mg Al Hydroxide/Mg Hydroxide (Magnesium Hydrox/Alum Hydrox 30 Ml Oral.Susp) 30 ml PO Q6H PRN PRN Reason: Heartburn/Nausea Amlodipine Besylate (Amlodipine Besylate 5 Mg Tablet) 5 mg PO DAILY [facility]; Protocol Last Admin: 01/06/22 09:26 Dose: 5 mg Baclofen (Baclofen 10 Mg Tablet) 10 mg PO TID [facility] Last Admin: 01/06/22 14:56 Dose: 10 mg Diazepam (Diazepam 5 Mg Tablet) 5 mg PO DAILY PRN PRN Reason: Muscle Spasm Last Admin: 01/05/22 18:36 Dose: 5 mg Diazepam (Diazepam 5 Mg Tablet) 10 mg PO TID [facility] Last Admin: 01/06/22 14:56 Dose: 10 mg Docusate Sodium (Docusate Sodium 100 Mg Capsule) 100 mg PO BID PRN PRN Reason: constipation Fluticasone/Vilanterol (Fluticasone/Vilanterol 100/25 Blst.W.Dev) 1 puff INHALE DAILY [facility] Last Admin: 01/06/22 13:15 Dose: Not Given Gabapentin (Gabapentin 600 Mg Tablet) 600 mg PO TID [facility] Last Admin: 01/06/22 14:56 Dose: 600 mg Hydroxyzine HCl (Hydroxyzine Hcl 25 Mg Tablet) 25 mg PO Q6H PRN PRN Reason: Anxiety Last Admin: 01/05/22 23:21 Dose: 25 mg Ibuprofen (Ibuprofen 800 Mg Tablet) 800 mg PO Q6H PRN PRN Reason: Pain, Moderate (Pain Scale 4-6 Last Admin: 01/05/22 23:20 Dose: 800 mg Magnesium Hydroxide (Milk Of Magnesia 30 Ml Oral.Susp) 30 ml PO DAILY PRN PRN Reason: Constipation Last Admin: 01/04/22 22:51 Dose: 30 ml Melatonin (Melatonin 3 Mg Tablet) 6 mg PO BEDTIME PRN PRN Reason: Insomnia Last Admin: 01/05/22 23:21 Dose: 6 mg Midodrine (Midodrine Hcl 10 Mg Tablet) 10 mg PO TIDWM [facility] Last Admin: 01/06/22 16:33 Dose: 10 mg Nicotine Polacrilex (Nicotine Polacrilex 2 Mg Gum) 4 mg BUCCAL Q2H PRN PRN Reason: Nicotine Cravings Olanzapine (Olanzapine 10 Mg Tablet) 20 mg PO BEDTIME [facility] Last Admin: 01/05/22 21:12 Dose: 20 mg Propranolol HCl (Propranolol Hcl 10 Mg Tablet) 10 mg PO BID [facility] Last Admin: 01/06/22 09:26 Dose: 10 mg Sodium Chloride (Sodium Chloride 0.65 % Nasal 44 Ml Sprbtl) 1 spray NOSTRIL-B Q1H PRN PRN Reason: Dryness Last Admin: 01/05/22 15:33 Dose: 1 spray Trazodone HCl (Trazodone Hcl 50 Mg Tablet) 50 mg PO BEDTIME PRN PRN Reason: Insomnia Last Admin: 01/05/22 01:02 Dose: 50 mg Allergies Allergies Allergy/AdvReac Type Severity Reaction Status Date / Time albuterol AdvReac Palpitation Verified 11/01/21 20:16 s Assessment & Plan I spent minutes with the patient and/or on the patient floor today, greater than?50% of which was spent counseling/coordinating care.
--- NOTE | 2022-01-06 17:37 | PM.EVENT ---
Event Note Date of Service: 01/06/22 Event Note: Pt presented with acute wt gain i.e. since 11/01 pt's weight has increased from 49.895 to 62.312 kg. Pt has bilateral LE pitting edema, worse on L side. Pt denies pain, no warmth or tenderness in calf. Discussed with hospitalist, who recommended ordering BNP, venous doppler.
--- NOTE | 2022-01-06 18:22 | PC.NURSE ---
Patient labs drawn, now w/ staff to US as ordered.
[2022-01-06 18:35] LABS: B Type Natriuretic Peptide 129 pg/mL (<100); D Dimer High Sensitivity 231 NG/ML
--- NOTE | 2022-01-06 18:47 | PC.NURSE ---
Patient reported she had intermittent chest pain yesterday but did not report. Denies chest pain today. Provider aware, ekg ordered. Patient currently in ultrasound.
[2022-01-06 21:44] VITALS: BP 141/80; PULSE 76; RESP 18; TEMP 36.4; O2SAT 96
[2022-01-06] MEDS: OLANZapine 10 MG TABLET 20 MG PO (21:49)
[2022-01-06] MEDS: hydrOXYzine HCL 25 MG TABLET PO (23:00)
[2022-01-06] MEDS: Melatonin 3 MG TABLET 6 MG PO (23:00)
[2022-01-06] MEDS: Ibuprofen 800 MG TABLET PO (23:00)
[2022-01-07] MEDS: traZODone HCL 50 MG TABLET PO ×2 (00:50→23:20)
[2022-01-07 09:20] VITALS: BP 168/75; PULSE 60; RESP 20; TEMP 36.4; O2SAT 97
[2022-01-07] MEDS: diazePAM 5 MG TABLET 10 MG PO ×3 (09:26→21:50)
[2022-01-07] MEDS: Gabapentin 600 MG TABLET PO ×3 (09:26→21:51)
[2022-01-07] MEDS: Baclofen 10 MG TABLET PO ×3 (09:27→21:50)
[2022-01-07] MEDS: amLODIPine Besylate 5 MG TABLET PO (09:28)
[2022-01-07] MEDS: Propranolol HCL 10 MG TABLET PO ×2 (09:28→21:50)
--- NOTE | 2022-01-07 11:19 | HO.PSYCHPN ---
Subjective Subjective Date of Service: 01/07/22 Reason For Visit: delusions Subjective Notes: Conditional Voluntary Interim History: Pt reports feeling tired, in general reports being able to move and ambulate much better with increase dose of diazepam. She denies SI/HI. She reports feeling overwhelmed after news that ex partner selling the house and going to court for it. Per nursing, pt has been visible on the unit, social with select peers. Less perseveration on having a chip. Medication Compliance: Yes Side effects from medications: No Review of Systems Review of Systems Yes all other systems are reviewed and are negative Diagnostics Vital Signs (24Hr): Vital Signs - 24 hr 01/08/22 09:30 01/08/22 22:55 Temperature 97.8 F 97.8 F Pulse Rate 51 86 Respiratory Rate 16 18 Blood Pressure 100/73 156/93 H Pulse Oximetry 98 98 Oxygen Delivery Method Room Air Room Air BMI result Body Mass Index 24.3 Labs Results: 12/24/21 17:25 12/26/21 09:02 Imaging Radiology Impressions: ITS Impressions Shoulder X-Ray 12/28/21 18:34 IMPRESSION: Postsurgical changes of the right shoulder with 2 radiopaque markers along the superior anterior margin of the glenoid. Brain MRI 12/30/21 12:55 IMPRESSION: There are no acute intracranial findings. Mild nonspecific T2 signal changes within the supratentorial white matter. No prior studies available for comparison. Venous Duplex 01/06/22 16:38 IMPRESSION: No DVT demonstrated in either lower extremity. Duplex Scan Lower Extremity Artery 01/06/22 18:56 IMPRESSION: There is no evidence of any hemodynamically significant lower extremity arterial disease by pressure, waveform or duplex Doppler criteria at rest. Incidental note is made of large varicose veins. It may be useful to assess for superficial venous insufficiency as a cause of bilateral lower extremity swelling. Medications Medications Current Medications Acetaminophen (Acetaminophen 325 Mg Tablet) 650 mg PO Q6H PRN PRN Reason: Headache/Pain Mild Scale (1-3) Last Admin: 01/05/22 15:43 Dose: 650 mg Al Hydroxide/Mg Hydroxide (Magnesium Hydrox/Alum Hydrox 30 Ml Oral.Susp) 30 ml PO Q6H PRN PRN Reason: Heartburn/Nausea Amlodipine Besylate (Amlodipine Besylate 5 Mg Tablet) 5 mg PO DAILY [facility]; Protocol Last Admin: 01/08/22 09:38 Dose: 5 mg Baclofen (Baclofen 10 Mg Tablet) 10 mg PO TID [facility] Last Admin: 01/08/22 22:52 Dose: 10 mg Diazepam (Diazepam 5 Mg Tablet) 5 mg PO DAILY PRN PRN Reason: Muscle Spasm Last Admin: 01/07/22 15:56 Dose: 5 mg Diazepam (Diazepam 5 Mg Tablet) 10 mg PO TID [facility] Last Admin: 01/08/22 22:52 Dose: 10 mg Docusate Sodium (Docusate Sodium 100 Mg Capsule) 100 mg PO BID PRN PRN Reason: constipation Fluticasone/Vilanterol (Fluticasone/Vilanterol 100/25 Blst.W.Dev) 1 puff INHALE DAILY [facility] Last Admin: 01/08/22 09:39 Dose: 1 puff Gabapentin (Gabapentin 600 Mg Tablet) 600 mg PO TID [facility] Last Admin: 01/08/22 22:53 Dose: 600 mg Hydroxyzine HCl (Hydroxyzine Hcl 25 Mg Tablet) 25 mg PO Q6H PRN PRN Reason: Anxiety Last Admin: 01/07/22 12:22 Dose: 25 mg Ibuprofen (Ibuprofen 800 Mg Tablet) 800 mg PO Q6H PRN PRN Reason: Pain, Moderate (Pain Scale 4-6 Last Admin: 01/08/22 22:54 Dose: 800 mg Magnesium Hydroxide (Milk Of Magnesia 30 Ml Oral.Susp) 30 ml PO DAILY PRN PRN Reason: Constipation Last Admin: 01/04/22 22:51 Dose: 30 ml Melatonin (Melatonin 3 Mg Tablet) 6 mg PO BEDTIME PRN PRN Reason: Insomnia Last Admin: 01/08/22 22:54 Dose: 6 mg Midodrine (Midodrine Hcl 10 Mg Tablet) 10 mg PO TIDWM [facility] Last Admin: 01/08/22 17:23 Dose: 10 mg Nicotine Polacrilex (Nicotine Polacrilex 2 Mg Gum) 4 mg BUCCAL Q2H PRN PRN Reason: Nicotine Cravings Olanzapine (Olanzapine 10 Mg Tablet) 20 mg PO BEDTIME [facility] Last Admin: 01/08/22 22:53 Dose: 20 mg Propranolol HCl (Propranolol Hcl 10 Mg Tablet) 10 mg PO BID [facility] Last Admin: 01/08/22 22:53 Dose: 10 mg Sodium Chloride (Sodium Chloride 0.65 % Nasal 44 Ml Sprbtl) 1 spray NOSTRIL-B Q1H PRN PRN Reason: Dryness Last Admin: 01/08/22 18:11 Dose: 1 spray Trazodone HCl (Trazodone Hcl 50 Mg Tablet) 50 mg PO BEDTIME PRN PRN Reason: Insomnia Last Admin: 01/08/22 22:54 Dose: 50 mg Allergies Allergies Allergy/AdvReac Type Severity Reaction Status Date / Time albuterol AdvReac Palpitation Verified 11/01/21 20:16 s Assessment & Plan Assessment & Plan (1) Delusional disorder: Status: Acute Code(s): F22 - Delusional disorders Plan Ms. 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 Pt also has been presenting with delusions related to ex-boyfriend implanting microchips in throat and vagina that are interacting with electromagnetic vargas of telephones, TV, computers. She believes ex-boyfriend is tracking her and monitoring her which is very distressing to her. These delusions have been present for the past year and a half. While being medically cleared, pt expressed severe anxiety due to persecutory delusions, passive suicidal ideation. Utox was positive for benzodiazepines, cannabinoids. We discussed risks, benefits and alternative treatment options. PLAN 01/07 continue current medications. I spent minutes with the patient and/or on the patient floor today, greater than?50% of which was spent counseling/coordinating care. Reason for contiued inpatient stay Substantial Risk for: inability to function
[2022-01-07 12:15] VITALS: BP 117/59; PULSE 63; RESP 18; O2SAT 100
[2022-01-07] MEDS: Midodrine HCl 10 MG TABLET PO ×2 (12:22→17:49)
[2022-01-07] MEDS: hydrOXYzine HCL 25 MG TABLET PO (12:22)
[2022-01-07] MEDS: diazePAM 5 MG TABLET PO (15:56)
[2022-01-07] MEDS: Ibuprofen 800 MG TABLET PO ×2 (16:00→23:20)
[2022-01-07 17:48] VITALS: BP 117/56; PULSE 48; RESP 18; O2SAT 97
[2022-01-07 21:45] VITALS: BP 134/63; PULSE 60; RESP 16; TEMP 36.1; O2SAT 95
[2022-01-07] MEDS: OLANZapine 10 MG TABLET 20 MG PO (21:51)
[2022-01-07] MEDS: Melatonin 3 MG TABLET 6 MG PO (23:20)
[2022-01-08 09:30] VITALS: BP 100/73; PULSE 51; RESP 16; TEMP 36.6; O2SAT 98
[2022-01-08] MEDS: diazePAM 5 MG TABLET 10 MG PO ×3 (09:38→22:52)
[2022-01-08] MEDS: Gabapentin 600 MG TABLET PO ×3 (09:38→22:53)
[2022-01-08] MEDS: Baclofen 10 MG TABLET PO ×3 (09:38→22:52)
[2022-01-08] MEDS: amLODIPine Besylate 5 MG TABLET PO (09:38)
[2022-01-08] MEDS: Fluticasone/Vilanterol 100/25 BLST.W.DEV 1 PUFF INHALE (09:39)
[2022-01-08] MEDS: Propranolol HCL 10 MG TABLET PO ×2 (09:39→22:53)
[2022-01-08] MEDS: Midodrine HCl 10 MG TABLET PO ×3 (09:39→17:23)
--- NOTE | 2022-01-08 12:27 | P.PNPSI_ITS ---
Subjective Subjective Date of Service: 01/08/22 Reason For Visit: delusions Subjective Notes: Conditional Voluntary Interim History: Pt less dysphoric today when talking about court letter she received to sell house as it is also her ex partner's house. She denies SI/HI. She is less distressed by ideas that she has a chip inserted by ex partnery, less anxious. Per nursing, pt has been visible on the unit, social with peers. No signs of aggression towards self or others. Pt in agreement to be discharged tomorrow. Medication Compliance: Yes Side effects from medications: No Review of Systems Review of Systems Yes all other systems are reviewed and are negative Mental Status Exam Mental Status Exam Narrative: dysphoric affect. No SI/HI Patient Appearance: Well Grooomed and Appropriate Patient Orientation: Person, Place, Time and Situation Level of Consciousness: Awake Patient Behavior: Cooperative Patient Cognition Impaired: No Ability to Follow Directions: Good Speech Pattern: Clear Diagnostics Vital Signs (24Hr): Vital Signs - 24 hr 01/08/22 09:30 01/08/22 22:55 Temperature 97.8 F 97.8 F Pulse Rate 51 86 Respiratory Rate 16 18 Blood Pressure 100/73 156/93 H Pulse Oximetry 98 98 Oxygen Delivery Method Room Air Room Air BMI result Body Mass Index 24.3 Labs Results: 12/24/21 17:25 12/26/21 09:02 Imaging Radiology Impressions: ITS Impressions Shoulder X-Ray 12/28/21 18:34 IMPRESSION: Postsurgical changes of the right shoulder with 2 radiopaque markers along the superior anterior margin of the glenoid. Brain MRI 12/30/21 12:55 IMPRESSION: There are no acute intracranial findings. Mild nonspecific T2 signal changes within the supratentorial white matter. No prior studies available for comparison. Venous Duplex 01/06/22 16:38 IMPRESSION: No DVT demonstrated in either lower extremity. Duplex Scan Lower Extremity Artery 01/06/22 18:56 IMPRESSION: There is no evidence of any hemodynamically significant lower extremity arterial disease by pressure, waveform or duplex Doppler criteria at rest. Incidental note is made of large varicose veins. It may be useful to assess for superficial venous insufficiency as a cause of bilateral lower extremity swelling. Medications Medications Current Medications Acetaminophen (Acetaminophen 325 Mg Tablet) 650 mg PO Q6H PRN PRN Reason: Headache/Pain Mild Scale (1-3) Last Admin: 01/05/22 15:43 Dose: 650 mg Al Hydroxide/Mg Hydroxide (Magnesium Hydrox/Alum Hydrox 30 Ml Oral.Susp) 30 ml PO Q6H PRN PRN Reason: Heartburn/Nausea Amlodipine Besylate (Amlodipine Besylate 5 Mg Tablet) 5 mg PO DAILY [facility]; Protocol Last Admin: 01/08/22 09:38 Dose: 5 mg Baclofen (Baclofen 10 Mg Tablet) 10 mg PO TID [facility] Last Admin: 01/08/22 22:52 Dose: 10 mg Diazepam (Diazepam 5 Mg Tablet) 5 mg PO DAILY PRN PRN Reason: Muscle Spasm Last Admin: 01/07/22 15:56 Dose: 5 mg Diazepam (Diazepam 5 Mg Tablet) 10 mg PO TID [facility] Last Admin: 01/08/22 22:52 Dose: 10 mg Docusate Sodium (Docusate Sodium 100 Mg Capsule) 100 mg PO BID PRN PRN Reason: constipation Fluticasone/Vilanterol (Fluticasone/Vilanterol 100/25 Blst.W.Dev) 1 puff INHALE DAILY [facility] Last Admin: 01/08/22 09:39 Dose: 1 puff Gabapentin (Gabapentin 600 Mg Tablet) 600 mg PO TID [facility] Last Admin: 01/08/22 22:53 Dose: 600 mg Hydroxyzine HCl (Hydroxyzine Hcl 25 Mg Tablet) 25 mg PO Q6H PRN PRN Reason: Anxiety Last Admin: 01/07/22 12:22 Dose: 25 mg Ibuprofen (Ibuprofen 800 Mg Tablet) 800 mg PO Q6H PRN PRN Reason: Pain, Moderate (Pain Scale 4-6 Last Admin: 01/08/22 22:54 Dose: 800 mg Magnesium Hydroxide (Milk Of Magnesia 30 Ml Oral.Susp) 30 ml PO DAILY PRN PRN Reason: Constipation Last Admin: 01/04/22 22:51 Dose: 30 ml Melatonin (Melatonin 3 Mg Tablet) 6 mg PO BEDTIME PRN PRN Reason: Insomnia Last Admin: 01/08/22 22:54 Dose: 6 mg Midodrine (Midodrine Hcl 10 Mg Tablet) 10 mg PO TIDWM [facility] Last Admin: 01/08/22 17:23 Dose: 10 mg Nicotine Polacrilex (Nicotine Polacrilex 2 Mg Gum) 4 mg BUCCAL Q2H PRN PRN Reason: Nicotine Cravings Olanzapine (Olanzapine 10 Mg Tablet) 20 mg PO BEDTIME [facility] Last Admin: 01/08/22 22:53 Dose: 20 mg Propranolol HCl (Propranolol Hcl 10 Mg Tablet) 10 mg PO BID [facility]AN Last Admin: 01/08/22 22:53 Dose: 10 mg Sodium Chloride (Sodium Chloride 0.65 % Nasal 44 Ml Sprbtl) 1 spray NOSTRIL-B Q1H PRN PRN Reason: Dryness Last Admin: 01/08/22 18:11 Dose: 1 spray Trazodone HCl (Trazodone Hcl 50 Mg Tablet) 50 mg PO BEDTIME PRN PRN Reason: Insomnia Last Admin: 01/08/22 22:54 Dose: 50 mg Allergies Allergies Allergy/AdvReac Type Severity Reaction Status Date / Time albuterol AdvReac Palpitation Verified 11/01/21 20:16 s Assessment & Plan Assessment & Plan (1) Delusional disorder: Status: Acute Code(s): F22 - Delusional disorders Plan Ms. 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 Pt also has been presenting with delusions related to ex- boyfriend implanting microchips in throat and vagina that are interacting with electromagnetic vargas of telephones, TV, computers. She believes ex-boyfriend is tracking her and monitoring her which is very distressing to her. These delusions have been present for the past year and a half. While being medically cleared, pt expressed severe anxiety due to persecutory delusions, passive suicidal ideation. Utox was positive for benzodiazepines, cannabinoids. We discussed risks, benefits and alternative treatment options. PLAN 01/07 continue current medications. 01/08 continue current medications. I spent minutes with the patient and/or on the patient floor today, greater than?50% of which was spent counseling/coordinating care. Reason for contiued inpatient stay Substantial Risk for: stable for discharge
[2022-01-08] MEDS: Sodium Chloride 0.65 % Nasal 44 ML SPRBTL 1 SPRAY NOSTRIL-B (18:11)
[2022-01-08] MEDS: OLANZapine 10 MG TABLET 20 MG PO (22:53)
[2022-01-08] MEDS: traZODone HCL 50 MG TABLET PO (22:54)
[2022-01-08] MEDS: Ibuprofen 800 MG TABLET PO (22:54)
[2022-01-08] MEDS: Melatonin 3 MG TABLET 6 MG PO (22:54)
[2022-01-08 22:55] VITALS: BP 156/93; PULSE 86; RESP 18; TEMP 36.6; O2SAT 98
--- NOTE | 2022-01-09 08:54 | PM.PSYDC ---
DS: Providers Provider Date of Service: 01/09/22 Date of admission: 12/25/21 22:08 Primary care physician: Unknown Physician DS: Diagnosis Discharge Diagnosis (1) Delusional disorder: Status: Acute DS: Medications Discharge Medications Home Medications: Previous Rx's Medication Instructions Recorded amlodipine 5 mg tablet 5 mg PO DAILY #30 tabs 01/09/22 baclofen 10 mg tablet 10 mg PO TID #90 tabs 01/09/22 diazepam 10 mg tablet 10 mg PO TID #90 tabs 01/09/22 diazepam 5 mg tablet 5 mg PO DAILY PRN Muscle Spasm #30 01/09/22 tabs docusate sodium 100 mg capsule 100 mg PO BID #60 caps 01/09/22 fluticasone 250 mcg-salmeterol 50 1 inh PO BID #60 ea 01/09/22 mcg/dose blistr powdr for inhalation (Advair Diskus) gabapentin 600 mg tablet 600 mg PO TID #90 tabs 01/09/22 ibuprofen 800 mg tablet 800 mg PO Q6H PRN Pain, Moderate 01/09/22 (Pain Scale 4-6 #60 tabs melatonin 3 mg tablet 6 mg PO BEDTIME PRN Insomnia #60 01/09/22 tabs midodrine 10 mg tablet 10 mg PO TIDWM #90 tabs 01/09/22 olanzapine 20 mg tablet 20 mg PO BEDTIME #30 tabs 01/09/22 propranolol 10 mg tablet 10 mg PO BID #60 tabs 01/09/22 sodium chloride 0.65 % nasal spray 1 spray intranasal Q1H PRN Dryness 01/09/22 aerosol (Deep Sea Nasal) #44 mL trazodone 50 mg tablet 50 mg PO BEDTIME PRN Insomnia #30 01/09/22 tabs Mental Status Exam Mental Status Exam Narrative: Appearance: thin, casually groomed, good hygiene, in NAD Behavior:cooperative psychomotor: bilat resting and action tremors. Speech:mostly clear, regular rate/rhythm/volume, spontaneous Thought process:tangential at times Thought content:no overt delusional content reported, looking forward to return home and see father Mood: better Affect: congruent, although can become easily dysphoric SI:none HI:none VH/AH:none Delusions:less paranoid/persecutory delusions of ex boyfriend implanted microchips Insight/judgment:fair x 2. Memory/cog: alert, oriented x 3. Data Data Completed and Pending Completed studies during hospitalization [Text1]: 01/06/22 01/06/22 18:02 18:02 D-Dimer High Sensitivty 231 B-Natriuretic Peptide 129 H 01/05/22 23:23 Urine clean catch - Clean Catch Midstream Urine Culture - Final Imaging Diagnostic Imaging Impressions Shoulder X-Ray 12/28/21 18:34 IMPRESSION: Postsurgical changes of the right shoulder with 2 radiopaque markers along the superior anterior margin of the glenoid. Brain MRI 12/30/21 12:55 IMPRESSION: There are no acute intracranial findings. Mild nonspecific T2 signal changes within the supratentorial white matter. No prior studies available for comparison. Venous Duplex 01/06/22 16:38 IMPRESSION: No DVT demonstrated in either lower extremity. Duplex Scan Lower Extremity Artery 01/06/22 18:56 IMPRESSION: There is no evidence of any hemodynamically significant lower extremity arterial disease by pressure, waveform or duplex Doppler criteria at rest. Incidental note is made of large varicose veins. It may be useful to assess for superficial venous insufficiency as a cause of bilateral lower extremity swelling. DS: Summary Hospital Course Hospital Course: HPI: Subjective Notes: Conditional Voluntary Narrative: Ms. 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 Pt also has been presenting with delsions related to ex-boyfriend implanting microchips in throat and vagina that are interacting with electromagnetic vargas of telephones, TV, computers. She believes ex-boyfriend is tracking her and monitoring her which is very distressing to her. These delusions have been present for the past year and a half. While being medically cleared, pt expressed severe anxiety due to persecutory delusions, passive suicidal ideation. Utox was positive for benzodiazepines, cannabinoids. On the unit, pt presents with muscle spasms related to stiff person syndrome. Pt reports muscle pain- takes combination of ibuprofen, baclofen. She reports for years her ex-boyfriend inset microchip in her vagina, and possible in her throat. She believes she is being monitored and can't return to her house. Therefore, she has been staying with her father but knows she can't stay there for too long. She reports passive suicidal ideation but does report she does not have a plan or intent. She reports fair sleep. She reports regular appetite but has lost about 20-30 Lbs in the past 2 years. She denies auditory hallucinations and it appears mostly delusional disorder is main symptoms. She expresses frustration and feeling overwhelmed related to her rare immunological condition- stiff person syndrome which has been progressing over the last few years. She also reports that diazepam used to be 10mg po TID but this was lowered to 5mg po TID. Collateral information gathered from father- who reports delusions have been going on for almost two years. Father reports intensity and frequency of delusions have worsened in the past year. Father reports that after last admission on M5, pt did well, still delusional but calmer on low dose risperidone 0.5mg po BID. Father reports pt is transitioning medical care to [facility]- where she will received transfusions of Rituximab. Past Psychiatric History: IP: September 2021-[facility] OP: [facility], Psychopharm appt with Nic 11/19/21. Trials: risperidone, seroquel Medical Evaluation Reviewed: Yes HOSPITAL COURSE On the unit, Ms. Kennedy was admitted on a CV and placed on 15 minutes checks for safety. Pt initially presented as very dysphoric related delusions of ex boyfriend implanting microchip different parts of her body. She reported feeling very anxious, overwhelmed as she feels as she can't escape from her ex. Pt reports that despite having xrays not showing any microchips, she reports it's a special microchip that is not detected by any machine. Pt also has stiff person syndrome (diagnosed more than 10 years ago at [facility])- which is a rare, progressive neurologic/autoimmune condition that consists of intermittent muscle rigidity and spasms cause by (at least in her case) antibodies against glutamic acid decarboxylase (PATRICIA) and other unknown mechanisms, decreasing overall availability of FER. Pt was recently given prognosis of about 2 years left to live. She had been followed by acid bath mixer at [facility] who initially diagnosed her condition but he retired. He continued treatment with PCP and apparently has been difficult to reconnect with neurology here at [facility] apparently due to rarity of this condition. She had been for years on diazepam which is first line treatment for stiff person syndrome along with baclofen, gabapentin and Rituximab infusions. Her diazepam was after lowered for unclear reasons which worsened mobility and intensity and frequency of rigidity. This is important to keep in mind (pathophysiology of stiff person syndrome as a rare condition), as different antipsychotics have a variable effect on fer (as we see in antipsychotic-induced movement disorders). Thought was to use lower potency antipsychotics. Pt reported poor sleep, poor appetite and progressive weight loss. She agreed to start olanzapine, which she tolerated well and was titrated to 20mg po qhs. Her affect gradually presented as less dysphoric. She was not insisting in delusions related to having a chip inserted or overwhelmed by medical conditions. She denied SI/HI. She does have tendency to have low frustration tolerance and easily overwhelmed and may respond well to mood stabilizer in addition to antipsychotic medications. There were no incidences of disruptive behaviors nor use of restraints. Time spent discussing smoking cessation with patient: 3 to 10 minutes Status at Discharge Cognitive/behavioral status at discharge: Pt with some degree of dysphoric affect. However, much less rumination about delusions related to ex boyfriend implanting chips and trying to affect her health through electromagnetic vargas. She denied SI/HI. No VH/AH. No signs of aggression towards self or others. Functional status at discharge: independent ambulation Overall status at discharge: patient is progressing back to baseline Time Spent with Patient Time attestation: Total time spent providing and/or coordinating discharge services: Time spent: Greater than 30 minutes Discharge Plan Discharge Patient Disposition: Home Health Service Discharge Diagnosis: Delusional Disorder Referrals: Lukas Cosme (Therapy) [Other] - 01/16/22 4:00 pm (IN OFFICE APPOINTMENT -Therapy Intake will be completed on this day. You will then be assigned to a permanent therapist. ) Lawanda Gallardo (Psychiatry) [Other] - 02/03/22 9:00 am (IN OFFICE APPOINTMENT -Psychiatric Evaluation ) Lawanda Gallardo (Psychiatry) [Other] - 03/10/22 9:00 am (IN OFFICE APPOINTMENT -Medication Management ) Cristian (Case Management) [Other] - 01/10/22 4:00 pm (You have an intake in person with Cristian at the address listed above) [place] [Physician] - 3 Weeks (Walk In hours Thursday through Thursday 830 am - 4pm) Discharge Medications: New baclofen 10 mg Tablet 10 mg PO TID Qty: 90 1RF midodrine 10 mg Tablet 10 mg PO TIDWM Qty: 90 0RF gabapentin 600 mg Tablet 600 mg PO TID Qty: 90 0RF amlodipine 5 mg Tablet 5 mg PO DAILY Qty: 30 0RF Protocol: Hold for SBP< HOLD for SBP < : 90 propranolol 10 mg Tablet 10 mg PO BID Qty: 60 0RF diazepam 5 mg tablet 5 mg PO DAILY PRN (Reason: Muscle Spasm) Qty: 30 1RF ibuprofen 800 mg Tablet 800 mg PO Q6H PRN (Reason: Pain, Moderate (Pain Scale 4-6) Qty: 60 1RF olanzapine 20 mg tablet 20 mg PO BEDTIME Qty: 30 0RF trazodone 50 mg Tablet 50 mg PO BEDTIME PRN (Reason: Insomnia) Qty: 30 0RF Deep Sea Nasal 0.65 % Aerosol,[place] 1 spray intranasal Q1H PRN (Reason: Dryness) Qty: 44 0RF melatonin 3 mg Tablet 6 mg PO BEDTIME PRN (Reason: Insomnia) Qty: 60 0RF docusate sodium 100 mg Capsule 100 mg PO BID Qty: 60 0RF diazepam 10 mg tablet 10 mg PO TID Qty: 90 1RF Continued fluticasone propion-salmeterol [Advair Diskus] 250-50 mcg/dose blister with device 1 inh PO BID Qty: 60 0RF Discontinued docusate sodium 100 mg capsule 1 cap PO BID PRN (Reason: constipation) ibuprofen 800 mg tablet 1 tab PO Q8H PRN (Reason: Pain) baclofen 10 mg Tablet 10 mg PO BID PRN (Reason: spasticity) Qty: 60 0RF midodrine 10 mg Tablet 10 mg PO TIDWM Qty: 90 0RF propranolol 10 mg Tablet 10 mg PO BID Qty: 60 0RF Protocol: Hold for SBP/HR < HOLD for SBP < : 90 HOLD for HR < : 60 melatonin 3 mg Tablet 6 mg PO BEDTIME PRN (Reason: Insomnia) Qty: 60 0RF gabapentin 600 mg tablet 1 tab PO BID Qty: 60 0RF amlodipine 5 mg tablet 1 tab PO DAILY risperidone 0.5 mg tablet 1 tab PO BID diazepam 5 mg tablet 5 mg PO TID No Action duloxetine 60 mg capsule,delayed release(DR/EC) 1 cap PO DAILY Discharge Orders: Discharge Order (Routine); Ordered 01/09/22 Ordered By: Jayla Canales Diet: Regular diet Activity on Discharge: As tolerated Stand Alone Forms: Patient Portal Discharge page, Community Support Care Plan Goals: 1. Maintain mood 2. No SI/HI 3. Less anxiety Health Concerns: Follow up with PCP Plan of Treatment: 1. Take medications as prescribed. 2. Go to nearest ED or call 911 in event of emergency Assessment: Pt with less dysphoric affect. Less distress related to delusional content. No SI/HI. No signs of aggression towards self or others. No VH/AH. Discharge Date/Time: 01/09/22 12:57
[2022-01-09 09:00] VITALS: BP 106/56; PULSE 48; RESP 16; TEMP 36.8; O2SAT 98
[2022-01-09] MEDS: Midodrine HCl 10 MG TABLET PO ×2 (09:38→12:17)
[2022-01-09] MEDS: Gabapentin 600 MG TABLET PO (09:39)
[2022-01-09] MEDS: Baclofen 10 MG TABLET PO (09:39)
[2022-01-09] MEDS: diazePAM 5 MG TABLET 10 MG PO (09:39)
[2022-01-09] MEDS: Fluticasone/Vilanterol 100/25 BLST.W.DEV 1 PUFF INHALE (09:46)
--- NOTE | 2022-01-09 09:50 | PC.NURSE ---
HR this am 46 manual. Also BP 106/56. Nordustin and propranlol held. Jayla Canales informed
--- NOTE | 2022-01-09 10:56 | PC.NURSE ---
Lawanda is alert, fully oriented, pleasant and cooperative with discharge process. She verbalizes understanding of discharge medications and upcoming scheduled appointments. Providers are aware that patient does not verbalized readiness for discharge. She is future oriented to appointment with new sample case porter tomorrow.
[2022-01-09] MEDS: Acetaminophen 325 MG TABLET 650 MG PO (12:17)
[2022-01-09] MEDS: diazePAM 5 MG TABLET PO (12:17)
== END 2022-01-09 12:57 | disposition home health service (06) | DRG 885 ==
LOC: HO.ED 12-25 02:00 → HO.PADLT16 12-25 22:13
PROVIDERS: Nurse Practitioner Family; Registered Nurse; Admitting Provider Psychiatry & Neurology Psychiatry; Emergency Provider Internal Medicine; Visit Provider Social Worker
DX: F22 Delusional disorders (principal); G25.82 Stiff-man syndrome; J44.9 Chronic obstructive pulmonary disease, unspecified; I10 Essential (primary) hypertension; I83.893 Varicose veins of bilateral lower extremities with other complications; M32.9 Systemic lupus erythematosus, unspecified; F17.210 Nicotine dependence, cigarettes, uncomplicated; Z71.6 Tobacco abuse counseling; Z20.822 Contact with and (suspected) exposure to COVID-19; Z88.8 Allergy status to other drugs, medicaments and biological substances; Z79.51 Long term (current) use of inhaled steroids; Z79.899 Other long term (current) drug therapy
CPT/HCPCS: 36415; 70551; 73030; 80048; 80053; 80061; 80076; 80307; 81001; 81003; 82607; 82746; 83036; 83690; 83735; 83880; 84443; 85025; 85379; 87086; 87502; 87635; 93005; 93925; 93970; 99285; J1885; J2270; J3360

== ENCOUNTER 2022-01-18 14:41 | Inpatient (IN) | payer MEDICARE, MEDICAID, SELFPAY ==
--- NOTE | ~2022-01-18 | XR_ITS ---
EXAMINATION: XR ABDOMEN KUB CLINICAL INDICATION: Constipation COMPARISON: None TECHNIQUE: AP view of the abdomen. FINDINGS: No dilated air-filled loops of small bowel to suggest an obstructive process. There is a moderate to large stool burden throughout the majority of the colon. Surgical clips in the right upper abdomen suggest prior cholecystectomy. Mild degenerative changes of the spine. Visualized lung bases are well aerated. Small pelvic calcifications are likely vascular in nature. XR/XR KUB IMPRESSION: Moderate to large colonic stool burden.
--- NOTE | ~2022-01-18 | CT_ITS ---
EXAMINATION: CT CERVICAL SPINE WITHOUT CONTRAST CLINICAL INFORMATION: Trauma and neck pain COMPARISON: None TECHNIQUE: A noncontrast CT of the cervical spine with sagittal and coronal reformats. This CT examination was performed using dose optimization techniques as appropriate, variously including the following: *Automated exposure control *Adjustment of mA and/or kV according to patient size (this includes techniques or standardized protocols for targeted exams where dose is matched to indication/reason for exam; i.e. extremities or head) *Use of iterative reconstruction technique DLP: 287 mGy-cm FINDINGS: Normal alignment with no fracture. Mild multilevel degenerative disc disease with small anterior osteophytes and degenerative calcifications. There are degenerative changes at the anterior atlantoaxial junction. Moderate bilateral facet arthrosis severe on the left at C2-C3 and severe on the right at C5-C6. No prevertebral soft tissue swelling. CT/CT cervical spine wo con IMPRESSION: No cervical spine fracture or traumatic subluxation.
--- NOTE | ~2022-01-18 | XR_ITS ---
EXAMINATION: XR LUMBOSACRAL SPINE CLINICAL INFORMATION: Fall COMPARISON: None TECHNIQUE: Three views of the lumbosacral spine. FINDINGS: Normal alignment of the lumbar spine. No listhesis. Vertebral body heights are maintained. No acute fracture seen. Perhaps minimal disc height loss at L5-S1. Intervertebral disc space heights otherwise maintained. Minimal endplate proliferative change anteriorly at L1-L2. Lower lumbar facet arthrosis. Extensive aortic and biiliac vascular calcifications. Cholecystectomy clips in the right upper quadrant. XR/XR lumbar spine 2-3V IMPRESSION: 1. No subluxation or fracture identified. 2. Mild disc degenerative change at L1-L2 and L5-S1 with lower lumbar facet arthrosis.
--- NOTE | ~2022-01-18 | XR_ITS ---
EXAMINATION: XR PELVIS CLINICAL INFORMATION: Fall COMPARISON: None TECHNIQUE: AP view of the pelvis. FINDINGS: No acute fracture or dislocation. Bilateral hip joint spaces are maintained. Small osteophytes at both hips compatible with mild osteoarthritis. Pubic symphysis and sacroiliac joints are congruent and intact. Atherosclerotic vascular calcifications noted. No 1.8 cm rounded density overlies the left iliac wing, exact location uncertain. If intraosseous cyst may represent a large bone island. XR/XR pelvis 1-2V IMPRESSION: 1. No acute fracture or dislocation.
--- NOTE | ~2022-01-18 | XR_ITS ---
EXAMINATION: XR ABDOMEN KUB CLINICAL INDICATION: Constipation. COMPARISON: 02/02/2020 KUB. TECHNIQUE: AP view of the abdomen. FINDINGS: There is a nonobstructive bowel gas pattern. Mild to moderate stool seen within the colon distally to the rectum. Surgical clips overlie the right upper quadrant. Mild degenerative changes are seen in the thoracolumbar spine. XR/XR KUB IMPRESSION: Mild to moderate stool burden represents interval decrease from the previous study.
--- NOTE | ~2022-01-18 | US_ITS ---
EXAMINATION: US VENOUS ULTRASOUND WITH DOPPLER LOWER EXTREMITY, LEFT CLINICAL INFORMATION: Left leg edema COMPARISON: Previous exam most recent 01/28/2022 TECHNIQUE: Ultrasound of the deep veins is performed from the hip to the calf with compression sonography and color and pulse Doppler assessment. Spectral analysis with color-flow imaging is performed. FINDINGS: There is normal venous compression and respiratory variation and augmented flow. The visualized common femoral vein, superficial femoral vein, profunda femoral vein, popliteal vein, and the trifurcation region shows no evidence of deep venous thrombosis. There are left greater saphenous vein varicosities. The visualized left greater saphenous vein is patent. There is no significant popliteal fossa cyst. US/US venous duplex LE LT IMPRESSION: No DVT demonstrated in the left lower extremity. Left greater saphenous vein varicosities similar to previous exam.
--- NOTE | ~2022-01-18 | US_ITS ---
EXAMINATION: US VENOUS ULTRASOUND WITH DOPPLER LOWER EXTREMITY, LEFT CLINICAL INFORMATION: Left leg edema evaluate for DVT COMPARISON: Ultrasound lower extremity bilateral from 01/06/2022 TECHNIQUE: Ultrasound of the deep veins is performed from the hip to the calf with compression sonography and color and pulse Doppler assessment. Spectral analysis with color-flow imaging is performed. FINDINGS: There is normal venous compression and respiratory variation and augmented flow. The visualized common femoral vein, superficial femoral vein, profunda femoral vein, popliteal vein, and the trifurcation region shows no evidence of deep venous thrombosis. There is no significant popliteal fossa cyst. Left greater saphenous vein with varicosities and mid to distal segments, which appear patent. If the patient's symptoms persist, followup ultrasound in 5 days 7 days might be of value to exclude proximal propagation from a non-visualized calf vein. US/US venous duplex LE IMPRESSION: 1. No DVT demonstrated in the left lower extremity. 2. Left greater saphenous vein with varicosities and mid to distal segments, which appear patent.
[2022-01-18 14:48] VITALS: BP 128/88; PULSE 64; O2SAT 98
[2022-01-18 14:51] VITALS: BP 149/84; PULSE 76; RESP 18; TEMP 37; O2SAT 98; BMI 21.6
--- NOTE | 2022-01-18 15:47 | PHA.MEDREC ---
Pharmacy Consult ? Medication Reconciliation Pharmacy has completed the medication reconciliation.
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
[2022-01-18] MEDS: Gabapentin 600 MG TABLET PO ×2 (16:48→21:59)
[2022-01-18] MEDS: amLODIPine Besylate 5 MG TABLET PO (16:48)
[2022-01-18] MEDS: diazePAM 5 MG TABLET PO (16:50)
[2022-01-18 17:00] LABS: COVID-19 Test Negative (Negative)
[2022-01-18] MEDS: Ibuprofen 800 MG TABLET PO (17:12)
[2022-01-18] MEDS: Baclofen 10 MG TABLET PO ×2 (18:26→21:58)
[2022-01-18] MEDS: Midodrine HCl 10 MG TABLET PO (18:27)
[2022-01-18] MEDS: Sodium Chloride 0.65 % Nasal 44 ML SPRBTL 1 SPRAY NOSTRIL-B (18:34)
[2022-01-18] MEDS: OLANZapine 10 MG TABLET 20 MG PO (21:57)
[2022-01-18] MEDS: diazePAM 5 MG TABLET 10 MG PO (21:58)
[2022-01-18] MEDS: Propranolol HCL 10 MG TABLET PO (21:58)
[2022-01-18 22:00] VITALS: BP 151/84; PULSE 52; RESP 18; TEMP 36.5; O2SAT 98
[2022-01-18] MEDS: Melatonin 3 MG TABLET 6 MG PO (22:07)
[2022-01-18] MEDS: traZODone HCL 50 MG TABLET PO (22:07)
--- NOTE | 2022-01-18 22:34 | PC.NURSE ---
pt a&ox3, vss, pt reporting increased dizziness with head movement, pt reporting 10/10 pain, baseline of 8/10, medicated per provider order.
[2022-01-19] MEDS: Baclofen 10 MG TABLET PO ×3 (10:44→20:50)
[2022-01-19] MEDS: Midodrine HCl 10 MG TABLET PO ×2 (10:44→15:15)
[2022-01-19] MEDS: amLODIPine Besylate 5 MG TABLET PO (10:44)
[2022-01-19] MEDS: Gabapentin 600 MG TABLET PO ×3 (10:44→20:50)
[2022-01-19] MEDS: diazePAM 5 MG TABLET 10 MG PO ×3 (10:44→20:49)
[2022-01-19] MEDS: Propranolol HCL 10 MG TABLET PO (10:45)
--- NOTE | 2022-01-19 11:01 | PC.NURSE ---
Ambulatory to BR with assist. requesting ibuprophen. axox3. denies si. trish present.
[2022-01-19 11:48] VITALS: BP 134/53; PULSE 48; RESP 16; O2SAT 100
[2022-01-19] MEDS: Ibuprofen 800 MG TABLET PO (15:31)
[2022-01-19 16:00] VITALS: BP 136/60; PULSE 72; RESP 16; TEMP 36.6; O2SAT 97
[2022-01-19 18:00] VITALS: RESP 16
[2022-01-19 20:48] VITALS: BP 106/54
[2022-01-19] MEDS: traZODone HCL 50 MG TABLET PO (20:49)
[2022-01-20] MEDS: diazePAM 5 MG TABLET PO ×2 (03:55→14:24)
[2022-01-20] MEDS: diazePAM 5 MG TABLET 10 MG PO ×2 (09:43→21:08)
[2022-01-20] MEDS: Midodrine HCl 10 MG TABLET PO ×3 (09:43→18:12)
[2022-01-20] MEDS: Docusate Sodium 100 MG CAPSULE PO (09:44)
[2022-01-20] MEDS: Ibuprofen 800 MG TABLET PO ×3 (09:44→21:06)
[2022-01-20] MEDS: Baclofen 10 MG TABLET PO ×3 (09:44→21:08)
[2022-01-20] MEDS: amLODIPine Besylate 5 MG TABLET PO (09:44)
[2022-01-20] MEDS: Gabapentin 600 MG TABLET PO ×3 (09:44→21:08)
--- NOTE | 2022-01-20 09:44 | PC.NURSE ---
administered meds per MAR
[2022-01-20 11:27] VITALS: BP 107/59; PULSE 50; TEMP 36.7; O2SAT 95
[2022-01-20 15:09] VITALS: BP 111/55; PULSE 55
[2022-01-20] MEDS: Propranolol HCL 10 MG TABLET PO ×2 (15:10→22:13)
[2022-01-20 15:59] VITALS: BP 99/55; PULSE 56; RESP 16; TEMP 36.6; O2SAT 98
[2022-01-20 18:00] VITALS: BP 110/70; PULSE 74; RESP 16; TEMP 36.6; O2SAT 98
--- NOTE | 2022-01-20 19:11 | PC.NURSE ---
THIS NURSE HAS NOW ASSUMED CARE OF PT
[2022-01-20 20:38] VITALS: BP 125/74; PULSE 53; RESP 18; O2SAT 99
[2022-01-20] MEDS: Melatonin 3 MG TABLET 6 MG PO (21:07)
[2022-01-20] MEDS: traZODone HCL 50 MG TABLET PO (21:08)
[2022-01-20] MEDS: OLANZapine 10 MG TABLET 20 MG PO (22:13)
--- NOTE | 2022-01-20 22:58 | PC.NURSE ---
pt now resting comfortably resp effort unlabored reg now use of accessory muscles present, pt given all requested and ordered bedtime medications, pt tolerated PO with no issues, will continue to monitor. pt remains a safety watch at this time
--- NOTE | 2022-01-21 | ECG_ITS ---
Test Reason : medical clearance Blood Pressure : / mmHG Vent. Rate : 043 BPM Atrial Rate : 043 BPM P-R Int : 126 ms QRS Dur : 098 ms QT Int : 478 ms P-R-T Axes : 069 078 064 degrees QTc Int : 403 ms Marked sinus bradycardia Abnormal ECG When compared with ECG of 06-JAN-2022 19:27, Heart rate has decreased Referred By: Bindu Hernandez Electronically Signed By:GRACE ARGUETA
--- NOTE | 2022-01-21 00:36 | PC.NURSE ---
verbal over the phone report given to nurse Huseyin
[2022-01-21 00:40] VITALS: BP 94/52; PULSE 46; RESP 16; O2SAT 98
--- NOTE | 2022-01-21 07:03 | PC.NURSE ---
Patient slept through the night, no distress observed/reported, medication compliant, behavior non concerning, disposition per [facility] is section 12 inpatient bed search, patient is pre-accepted [facility], gait unsteady but independent, VSS, will continue to monitor.
--- NOTE | 2022-01-21 07:14 | PC.NURSE ---
patient appears to remain asleep at present respirations are even and unlabored patient appears in no distress
[2022-01-21] MEDS: Propranolol HCL 10 MG TABLET PO (08:28)
[2022-01-21] MEDS: diazePAM 5 MG TABLET 10 MG PO ×3 (08:28→21:53)
[2022-01-21] MEDS: amLODIPine Besylate 5 MG TABLET PO (08:28)
[2022-01-21] MEDS: Midodrine HCl 10 MG TABLET PO ×3 (08:28→17:18)
[2022-01-21] MEDS: Gabapentin 600 MG TABLET PO ×3 (08:28→21:54)
[2022-01-21] MEDS: Baclofen 10 MG TABLET PO ×3 (08:29→21:53)
[2022-01-21 10:56] LABS: MANUAL DIFF FLAG NO
[2022-01-21 10:59] LABS: Basophils Percent Auto 0.6 % (0-2); Eosinophils Absolute Auto 0.1 X10*3/uL (0.0-0.4); Hemoglobin 12.3 g/dl (12.0-16.0); Imm Gran Abs Auto 0.02 X10*3/uL (0.00-0.03); Imm Gran Pct Auto 0.4 % (0.0-0.4); Lymphocytes Absolute Auto 1.5 X10*3/uL (1.2-4.9); Lymphocytes Percent Auto 30.4 % (20-40); Mean Corpuscular HGB Conc 33.2 g/dl (31.0-35.0); Mean Corpuscular Hemoglobin 29.8 pg (27.0-33.0); Mean Corpuscular Volume 89.6 fL (80.0-98.0); Mean Platelet Volume 8.7 fL (9.4-12.3); Monocytes Absolute Auto 0.4 X10*3/uL (0.1-1.2); Monocytes Percent Auto 7.4 % (2-11); Neutrophils Absolute Auto 2.9 x10*3/uL (2.0-8.3); Neutrophils Percent Auto 59.2 % (45-73); Platelet Count 273 X10*3/uL (160-400); Red Blood Count 4.13 X10*6/uL (4.20-5.50); Red Cell Distribution Width 12.4 % (11.0-16.0)
[2022-01-21 11:17] LABS: COVID-19 Test Negative (Negative); IDNOW Serial# 16C4AD1C
[2022-01-21 11:23] LABS: Alanine Aminotransferase < 6 U/L (0-31); Alkaline Phosphatase 84 U/L (39-117); Anion Gap 12 (12-20); Aspartate Amino Transferase 11 U/L (5-31); Bilirubin Direct < 0.2 mg/dL (0.0-0.5); Bilirubin Total 0.3 mg/dL (0.0-1.0); Blood Urea Nitrogen 14 mg/dL (9-16); Calcium 9.4 mg/dL (8.4-10.2); Carbon Dioxide 32 mmol/L (22-29); Chloride 104 mmol/L (96-108); Creatinine Clr Calc Pharmacy 64.2; Estimated Glomerular Filt Rate > 60; Glucose Random 103 mg/dL (60-115); Magnesium 1.9 mg/dL (1.6-2.6); Potassium 4.3 mmol/L (3.3-5.1); Sodium 144 mmol/L (135-145); Total Protein 6.2 g/dL (6.5-8.0)
[2022-01-21] MEDS: hydrOXYzine HCL 25 MG TABLET PO (14:36)
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
[2022-01-21 21:47] VITALS: BP 122/78; PULSE 54; RESP 16; TEMP 35.6; O2SAT 100
[2022-01-21] MEDS: OLANZapine 10 MG TABLET 20 MG PO (21:53)
[2022-01-21] MEDS: traZODone HCL 50 MG TABLET PO (21:53)
[2022-01-21] MEDS: Melatonin 3 MG TABLET 6 MG PO (21:54)
[2022-01-21] MEDS: Ibuprofen 800 MG TABLET PO (21:54)
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
[2022-01-22] MEDS: Fluticasone/Vilanterol 100/25 BLST.W.DEV 1 PUFF INHALE (08:59)
[2022-01-22] MEDS: diazePAM 5 MG TABLET 10 MG PO ×3 (09:00→20:56)
[2022-01-22] MEDS: Midodrine HCl 10 MG TABLET PO ×3 (09:00→17:33)
[2022-01-22] MEDS: Gabapentin 600 MG TABLET PO ×3 (09:01→20:56)
[2022-01-22] MEDS: amLODIPine Besylate 5 MG TABLET PO (09:01)
[2022-01-22] MEDS: Baclofen 10 MG TABLET PO ×3 (09:01→20:56)
[2022-01-22] MEDS: Docusate Sodium 100 MG CAPSULE PO (09:01)
[2022-01-22 09:33] LABS: Estimated Average Glucose 105 mg/dL; Hemoglobin A1c % 5.3 %
[2022-01-22 10:00] LABS: Alanine Aminotransferase < 6 U/L (0-31); Albumin Level 3.7 g/dL (3.5-5.0); Alkaline Phosphatase 75 U/L (39-117); Anion Gap 14 (12-20); Aspartate Amino Transferase 10 U/L (5-31); Bilirubin Total < 0.2 mg/dL (0.0-1.0); Blood Urea Nitrogen 20 mg/dL (9-16); Calcium 8.8 mg/dL (8.4-10.2); Carbon Dioxide 29 mmol/L (22-29); Chloride 105 mmol/L (96-108); Cholesterol 173 mg/dL; Creatinine Clr Calc Pharmacy 64.2; Estimated Glomerular Filt Rate > 60; Glucose Fasting 93 mg/dL (60-99); HDL Cholesterol 41 mg/dL; LDL Cholesterol Calculated 119 mg/dl; Potassium 3.7 mmol/L (3.3-5.1); Sodium 144 mmol/L (135-145); Total Protein 5.6 g/dL (6.5-8.0); Triglycerides 67 mg/dL
[2022-01-22] MEDS: Ibuprofen 800 MG TABLET PO ×2 (13:41→22:09)
[2022-01-22] MEDS: hydrOXYzine HCL 25 MG TABLET PO ×2 (13:41→22:09)
[2022-01-22] MEDS: diazePAM 5 MG TABLET PO (13:41)
[2022-01-22 13:44] VITALS: BP 127/66; PULSE 56
[2022-01-22] MEDS: Acetaminophen 325 MG TABLET 650 MG PO (17:38)
[2022-01-22 19:40] VITALS: BP 118/68; PULSE 69; RESP 16; TEMP 36.8; O2SAT 99
[2022-01-22] MEDS: OLANZapine 10 MG TABLET 20 MG PO (20:56)
[2022-01-22] MEDS: Propranolol HCL 10 MG TABLET PO (20:56)
[2022-01-22] MEDS: traZODone HCL 50 MG TABLET PO (22:10)
[2022-01-22] MEDS: Melatonin 3 MG TABLET 6 MG PO (22:10)
[2022-01-23 07:00] VITALS: BMI 23.8
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
[2022-01-23 09:36] VITALS: BP 137/84; PULSE 56; RESP 16; TEMP 36.3; O2SAT 97
[2022-01-23] MEDS: Gabapentin 600 MG TABLET PO ×3 (09:41→21:28)
[2022-01-23] MEDS: Midodrine HCl 10 MG TABLET PO ×3 (09:41→17:41)
[2022-01-23] MEDS: Baclofen 10 MG TABLET PO ×3 (09:41→21:27)
[2022-01-23] MEDS: amLODIPine Besylate 5 MG TABLET PO (09:41)
[2022-01-23] MEDS: Fluticasone/Vilanterol 100/25 BLST.W.DEV 1 PUFF INHALE (09:42)
[2022-01-23] MEDS: diazePAM 5 MG TABLET 10 MG PO ×3 (11:53→21:45)
[2022-01-23] MEDS: Sodium Chloride 0.65 % Nasal 44 ML SPRBTL 1 SPRAY NOSTRIL-B (13:53)
[2022-01-23] MEDS: hydrOXYzine HCL 25 MG TABLET PO (14:50)
[2022-01-23] MEDS: Ibuprofen 800 MG TABLET PO ×2 (14:50→21:27)
[2022-01-23] MEDS: OLANZapine 10 MG TABLET 20 MG PO (21:27)
[2022-01-23] MEDS: Propranolol HCL 10 MG TABLET PO (21:27)
[2022-01-23] MEDS: Melatonin 3 MG TABLET 6 MG PO (21:28)
[2022-01-23] MEDS: traZODone HCL 50 MG TABLET PO (21:28)
[2022-01-23 21:30] VITALS: BP 157/109; PULSE 58; RESP 18; TEMP 36.6; O2SAT 97
[2022-01-24 10:15] VITALS: BP 126/80; PULSE 80; RESP 18; TEMP 36.6; O2SAT 93
[2022-01-24] MEDS: Docusate Sodium 100 MG CAPSULE PO ×2 (10:25→23:05)
[2022-01-24] MEDS: diazePAM 5 MG TABLET 10 MG PO ×3 (10:25→23:04)
[2022-01-24] MEDS: Propranolol HCL 10 MG TABLET PO ×2 (10:25→23:03)
[2022-01-24] MEDS: Midodrine HCl 10 MG TABLET PO ×2 (10:26→12:13)
[2022-01-24] MEDS: amLODIPine Besylate 5 MG TABLET PO (10:26)
[2022-01-24] MEDS: Baclofen 10 MG TABLET PO ×3 (10:26→23:02)
[2022-01-24] MEDS: Gabapentin 600 MG TABLET PO ×3 (10:26→23:05)
[2022-01-24] MEDS: Ibuprofen 800 MG TABLET PO ×2 (10:45→23:13)
[2022-01-24] MEDS: Lithium Carbonate 300 MG TABLET 150 MG PO ×2 (12:13→23:07)
--- NOTE | 2022-01-24 14:04 | HO.PSYCHPN ---
Subjective Subjective Date of Service: 01/24/22 Reason For Visit: CRISIS EVAL/SI Interim History: Pt continues to endorse feeling hopeless. She reports feeling guilt related to cutting herself while at her father's house and losing his trust. She endorses depressed mood, continues to report paranoid delusions. She has been more visible on the unit. She reports sleeping well. Review of Systems Review of Systems CVS: No c/o chest pain, palpitations, no SOB [employer] EMISSIONS: No c/o dizziness, headache GI: No c/o Nausea, Vomiting, diarrhea, constipation or heartburn Yes all other systems are reviewed and are negative Constitutional: Reports as per HPI Mental Status Exam Mental Status Exam Narrative: Appearance: casually groomed, fair hygiene in NAD Behavior:cooperative psychomotor: no agitation or retardation noted Speech: clear, normal rate/rhythm/volume, spontaneous Thought process:mostly linear Thought content:feeling hopeless. depressed Mood: depressed, tired Affect: blunted, congruent SI:passive no plan HI:none VH/AH:none Delusions:paranoid delusions related to having chip and being monitored Insight/judgment:poor x 2. Memory/cog: alert, oriented x 3. not formally tested, may do MOCA. Diagnostics Vital Signs (24Hr): Vital Signs - 24 hr 01/23/22 21:30 01/24/22 10:15 Temperature 97.8 F 97.8 F Pulse Rate 58 80 Respiratory Rate 18 18 Blood Pressure 157/109 H 126/80 Pulse Oximetry 97 93 Oxygen Delivery Method Room Air Room Air BMI result Body Mass Index 23.8 Labs Results: 01/21/22 10:51 01/22/22 08:46 Imaging Radiology Impressions: ITS Impressions Pelvis X-Ray 01/18/22 19:28 IMPRESSION: 1. No acute fracture or dislocation. Lumbar Spine X-Ray 01/18/22 20:07 IMPRESSION: 1. No subluxation or fracture identified. 2. Mild disc degenerative change at L1-L2 and L5-S1 with lower lumbar facet arthrosis. Cervical Spine CT 01/18/22 20:26 IMPRESSION: No cervical spine fracture or traumatic subluxation. Medications Medications Current Medications Acetaminophen (Acetaminophen 325 Mg Tablet) 650 mg PO Q6H PRN PRN Reason: Headache/Pain Mild Scale (1-3) Last Admin: 01/22/22 17:38 Dose: 650 mg Al Hydroxide/Mg Hydroxide (Magnesium Hydrox/Alum Hydrox 30 Ml Oral.Susp) 30 ml PO Q6H PRN PRN Reason: Heartburn/Nausea Amlodipine Besylate (Amlodipine Besylate 5 Mg Tablet) 5 mg PO DAILY [facility]; Protocol Last Admin: 01/24/22 10:26 Dose: 5 mg Baclofen (Baclofen 10 Mg Tablet) 10 mg PO TID [facility] Last Admin: 01/24/22 10:26 Dose: 10 mg Diazepam (Diazepam 5 Mg Tablet) 10 mg PO TID [facility] Last Admin: 01/24/22 10:25 Dose: 10 mg Diazepam (Diazepam 5 Mg Tablet) 5 mg PO DAILY PRN PRN Reason: Muscle Spasm Docusate Sodium (Docusate Sodium 100 Mg Capsule) 100 mg PO BID [facility] Last Admin: 01/24/22 10:25 Dose: 100 mg Fluticasone/Vilanterol (Fluticasone/Vilanterol 100/25 Blst.W.Dev) 1 puff INHALE RDAILY [facility] Last Admin: 01/24/22 10:27 Dose: Not Given Gabapentin (Gabapentin 600 Mg Tablet) 600 mg PO TID [facility] Last Admin: 01/24/22 10:26 Dose: 600 mg Hydroxyzine HCl (Hydroxyzine Hcl 25 Mg Tablet) 25 mg PO Q6H PRN PRN Reason: Anxiety Last Admin: 01/23/22 14:50 Dose: 25 mg Ibuprofen (Ibuprofen 800 Mg Tablet) 800 mg PO Q6H PRN PRN Reason: Pain, Moderate (Pain Scale 4-6 Last Admin: 01/24/22 10:45 Dose: 800 mg Rubicon Carbonate (Rubicon Carbonate 300 Mg Tablet) 150 mg PO BID [facility] Last Admin: 01/24/22 12:13 Dose: 150 mg Magnesium Hydroxide (Milk Of Magnesia 30 Ml Oral.Susp) 30 ml PO DAILY PRN PRN Reason: Constipation Melatonin (Melatonin 3 Mg Tablet) 6 mg PO BEDTIME PRN PRN Reason: Insomnia Last Admin: 01/23/22 21:28 Dose: 6 mg Midodrine (Midodrine Hcl 10 Mg Tablet) 10 mg PO TIDWM [facility] Last Admin: 01/24/22 12:13 Dose: 10 mg Olanzapine (Olanzapine 10 Mg Tablet) 20 mg PO BEDTIME [facility] Last Admin: 01/23/22 21:27 Dose: 20 mg Pharmacy Consult (Consult Rx Perform Med Rec) 1 each MISCELLANE ONCE PRN PRN Reason: Consult order Propranolol HCl (Propranolol Hcl 10 Mg Tablet) 10 mg PO BID [facility]; Protocol Last Admin: 01/24/22 10:25 Dose: 10 mg Sodium Chloride (Sodium Chloride 0.65 % Nasal 44 Ml Sprbtl) 1 spray NOSTRIL-B Q1H PRN PRN Reason: Dryness Last Admin: 01/23/22 13:53 Dose: 1 spray Trazodone HCl (Trazodone Hcl 50 Mg Tablet) 50 mg PO BEDTIME PRN PRN Reason: Insomnia Last Admin: 01/23/22 21:28 Dose: 50 mg Allergies Allergies Allergy/AdvReac Type Severity Reaction Status Date / Time albuterol AdvReac Palpitation Verified 11/01/21 20:16 s Assessment & Plan Assessment & Plan (1) Delusional disorder: Status: Acute Code(s): F22 - Delusional disorders Plan Ms. Kennedy is a 56 year-old woman who carries a dx of delusional disorder. 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 Pt self presented to [facility] on 01/18/22 due to increased depression, SI, and self harm attempt via stabbing herself in the leg. Utox positive for cannabis, opiates, and benzos. Per chart, pt has fixed paranoid delusion that her ex-boyfriend is implanting microchips in her body, believes he is tracking her and monitoring her, delusions have been present for the past two years. During most recent admission to , pt was switched from risperdal 0.5 mg BID to olanzapine 20 mg QHS. Plan: Pt reports benefit on current medications, reviewed her PRN meds. Will continue assessment and engagement, unclear if medication will help with fixed delusions vs intensive therapy over time. May benefit from a mood stabilizing medication to target sx of depression and impulsivity. Q15 min safety checks, CV Monitor response to medications. Monitor for safety in the milieu. Discharge on stabilization. Patient seen. Chart reviewed. Discussed with team. Obtain collateral contact info?as needed 01/22- continue current medications. 01/23 we discussed adding lithium. continue olanzapine. 01/24 will start low dose lithium 150mg po BID. continue olanzapine I spent minutes with the patient and/or on the patient floor today, greater than?50% of which was spent counseling/coordinating care. Reason for contiued inpatient stay Substantial Risk for: harm to self and inability to function
[2022-01-24] MEDS: OLANZapine 10 MG TABLET 20 MG PO (23:02)
[2022-01-24 23:05] VITALS: BP 179/81; PULSE 70; TEMP 35.9; O2SAT 100
[2022-01-24] MEDS: traZODone HCL 50 MG TABLET PO (23:05)
[2022-01-24] MEDS: hydrOXYzine HCL 25 MG TABLET PO (23:06)
[2022-01-24] MEDS: Melatonin 3 MG TABLET 6 MG PO (23:06)
[2022-01-25 09:00] VITALS: BP 96/50; PULSE 49; RESP 18; TEMP 36.3; O2SAT 100
--- NOTE | 2022-01-25 09:14 | P.PNPSI_ITS ---
Subjective Subjective Date of Service: 01/25/22 Reason For Visit: CRISIS EVAL/SI Interim History: I spoke with pt's team, no changes in presentation. Pt is med adherent, engaging in tx. She is asleep when attempted to interview, will let her sleep as this is deemed therapeutic. Mental Status Exam Mental Status Exam Narrative: Appearance: casually groomed, fair hygiene in NAD Behavior:cooperative psychomotor: no agitation or retardation noted Speech: clear, normal rate/rhythm/volume, spontaneous Thought process:mostly linear Thought content:feeling hopeless. depressed Mood: [did not state] Affect: blunted, congruent SI:passive no plan HI:none VH/AH:none Delusions:paranoid delusions related to having chip and being monitored Insight/judgment:poor x 2. Memory/cog: alert, oriented x 3. not formally tested, may do MOCA. Diagnostics Vital Signs (24Hr): Vital Signs - 24 hr 01/24/22 10:15 01/24/22 23:05 Temperature 97.8 F 96.7 F L Pulse Rate 80 70 Respiratory Rate 18 Blood Pressure 126/80 179/81 H Pulse Oximetry 93 100 Oxygen Delivery Method Room Air Room Air BMI result Body Mass Index 23.8 Labs Results: 01/21/22 10:51 01/22/22 08:46 Imaging Radiology Impressions: ITS Impressions Pelvis X-Ray 01/18/22 19:28 IMPRESSION: 1. No acute fracture or dislocation. Lumbar Spine X-Ray 01/18/22 20:07 IMPRESSION: 1. No subluxation or fracture identified. 2. Mild disc degenerative change at L1-L2 and L5-S1 with lower lumbar facet arthrosis. Cervical Spine CT 01/18/22 20:26 IMPRESSION: No cervical spine fracture or traumatic subluxation. Medications Medications Current Medications Acetaminophen (Acetaminophen 325 Mg Tablet) 650 mg PO Q6H PRN PRN Reason: Headache/Pain Mild Scale (1-3) Last Admin: 01/22/22 17:38 Dose: 650 mg Al Hydroxide/Mg Hydroxide (Magnesium Hydrox/Alum Hydrox 30 Ml Oral.Susp) 30 ml PO Q6H PRN PRN Reason: Heartburn/Nausea Amlodipine Besylate (Amlodipine Besylate 5 Mg Tablet) 5 mg PO DAILY [facility]; Protocol Last Admin: 01/24/22 10:26 Dose: 5 mg Baclofen (Baclofen 10 Mg Tablet) 10 mg PO TID [facility] Last Admin: 01/24/22 23:02 Dose: 10 mg Diazepam (Diazepam 5 Mg Tablet) 10 mg PO TID [facility] Last Admin: 01/24/22 23:04 Dose: 10 mg Diazepam (Diazepam 5 Mg Tablet) 5 mg PO DAILY PRN PRN Reason: Muscle Spasm Docusate Sodium (Docusate Sodium 100 Mg Capsule) 100 mg PO BID [facility] Last Admin: 01/24/22 23:05 Dose: 100 mg Fluticasone/Vilanterol (Fluticasone/Vilanterol 100/25 Blst.W.Dev) 1 puff INHALE RDAILY [facility] Last Admin: 01/24/22 10:27 Dose: Not Given Gabapentin (Gabapentin 600 Mg Tablet) 600 mg PO TID [facility] Last Admin: 01/24/22 23:05 Dose: 600 mg Hydroxyzine HCl (Hydroxyzine Hcl 25 Mg Tablet) 25 mg PO Q6H PRN PRN Reason: Anxiety Last Admin: 01/24/22 23:06 Dose: 25 mg Ibuprofen (Ibuprofen 800 Mg Tablet) 800 mg PO Q6H PRN PRN Reason: Pain, Moderate (Pain Scale 4-6 Last Admin: 01/24/22 23:13 Dose: 800 mg Vado Carbonate (Vado Carbonate 300 Mg Tablet) 150 mg PO BID [facility] Last Admin: 01/24/22 23:07 Dose: 150 mg Magnesium Hydroxide (Milk Of Magnesia 30 Ml Oral.Susp) 30 ml PO DAILY PRN PRN Reason: Constipation Melatonin (Melatonin 3 Mg Tablet) 6 mg PO BEDTIME PRN PRN Reason: Insomnia Last Admin: 01/24/22 23:06 Dose: 6 mg Midodrine (Midodrine Hcl 10 Mg Tablet) 10 mg PO TIDWM [facility] Last Admin: 01/24/22 18:15 Dose: Not Given Olanzapine (Olanzapine 10 Mg Tablet) 20 mg PO BEDTIME [facility] Last Admin: 01/24/22 23:02 Dose: 20 mg Pharmacy Consult (Consult Rx Perform Med Rec) 1 each MISCELLANE ONCE PRN PRN Reason: Consult order Propranolol HCl (Propranolol Hcl 10 Mg Tablet) 10 mg PO BID [facility]; Protocol Last Admin: 01/24/22 23:03 Dose: 10 mg Sodium Chloride (Sodium Chloride 0.65 % Nasal 44 Ml Sprbtl) 1 spray NOSTRIL-B Q1H PRN PRN Reason: Dryness Last Admin: 01/23/22 13:53 Dose: 1 spray Trazodone HCl (Trazodone Hcl 50 Mg Tablet) 50 mg PO BEDTIME PRN PRN Reason: Insomnia Last Admin: 01/24/22 23:05 Dose: 50 mg Allergies Allergies Allergy/AdvReac Type Severity Reaction Status Date / Time albuterol AdvReac Palpitation Verified 11/01/21 20:16 s Assessment & Plan Assessment & Plan (1) Delusional disorder: Status: Acute Code(s): F22 - Delusional disorders Plan Ms. Kennedy is a 56 year-old woman who carries a dx of delusional disorder. 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 Pt self presented to [facility] on 01/18/22 due to increased depression, SI, and self harm attempt via stabbing herself in the leg. Utox positive for cannabis, opiates, and benzos. Per chart, pt has fixed paranoid delusion that her ex-boyfriend is implanting microchips in her body, believes he is tracking her and monitoring her, delusions have been present for the past two years. During most recent admission to [facility], pt was switched from risperdal 0.5 mg BID to olanzapine 20 mg QHS. Plan: Pt reports benefit on current medications, reviewed her PRN meds. Will continue assessment and engagement, unclear if medication will help with fixed delusions vs intensive therapy over time. May benefit from a mood stabilizing medication to target sx of depression and impulsivity. Q15 min safety checks, CV Monitor response to medications. Monitor for safety in the milieu. Discharge on stabilization. Patient seen. Chart reviewed. Discussed with team. Obtain collateral contact info?as needed 01/22- continue current medications. 01/23 we discussed adding lithium. continue olanzapine. 01/24 will start low dose lithium 150mg po BID. continue olanzapine 01/25 No med changes I spent minutes with the patient and/or on the patient floor today, greater than?50% of which was spent counseling/coordinating care. Patient educated on: other Reason for contiued inpatient stay Substantial Risk for: rapid decompensation and med/psych decompensation
[2022-01-25] MEDS: Midodrine HCl 10 MG TABLET PO ×2 (10:20→18:15)
[2022-01-25] MEDS: Ibuprofen 800 MG TABLET PO ×2 (10:20→22:33)
[2022-01-25] MEDS: Baclofen 10 MG TABLET PO ×3 (10:21→22:25)
[2022-01-25] MEDS: Lithium Carbonate 300 MG TABLET 150 MG PO ×2 (10:21→22:26)
[2022-01-25] MEDS: Docusate Sodium 100 MG CAPSULE PO (10:21)
[2022-01-25] MEDS: diazePAM 5 MG TABLET 10 MG PO ×3 (10:21→22:25)
[2022-01-25] MEDS: Gabapentin 600 MG TABLET PO ×3 (10:21→22:26)
[2022-01-25] MEDS: amLODIPine Besylate 5 MG TABLET PO (10:21)
[2022-01-25 17:39] VITALS: BP 106/59; PULSE 58; RESP 14; TEMP 37.1; O2SAT 97
[2022-01-25] MEDS: Sodium Chloride 0.65 % Nasal 44 ML SPRBTL 1 SPRAY NOSTRIL-B ×2 (20:05→23:50)
[2022-01-25] MEDS: OLANZapine 10 MG TABLET 20 MG PO (22:27)
[2022-01-25] MEDS: Melatonin 3 MG TABLET 6 MG PO (22:27)
[2022-01-25 22:30] VITALS: BP 146/80; PULSE 57; RESP 16; TEMP 36.6; O2SAT 98
[2022-01-25] MEDS: traZODone HCL 50 MG TABLET PO (22:30)
[2022-01-25] MEDS: hydrOXYzine HCL 25 MG TABLET PO (22:30)
[2022-01-26] MEDS: traZODone HCL 50 MG TABLET PO ×2 (02:52→23:03)
[2022-01-26 09:45] VITALS: BP 135/89; PULSE 56; RESP 18; TEMP 36.6; O2SAT 97
[2022-01-26] MEDS: Midodrine HCl 10 MG TABLET PO ×2 (10:06→11:59)
[2022-01-26] MEDS: amLODIPine Besylate 5 MG TABLET PO (10:06)
[2022-01-26] MEDS: diazePAM 5 MG TABLET 10 MG PO ×3 (10:06→22:07)
[2022-01-26] MEDS: Baclofen 10 MG TABLET PO ×3 (10:06→22:08)
[2022-01-26] MEDS: Gabapentin 600 MG TABLET PO ×3 (10:07→22:08)
[2022-01-26] MEDS: Propranolol HCL 10 MG TABLET PO ×2 (10:07→22:08)
[2022-01-26] MEDS: Lithium Carbonate 300 MG TABLET 150 MG PO ×2 (10:07→22:07)
[2022-01-26] MEDS: Docusate Sodium 100 MG CAPSULE PO ×2 (10:07→22:08)
[2022-01-26] MEDS: Fluticasone/Vilanterol 100/25 BLST.W.DEV 1 PUFF INHALE (10:40)
[2022-01-26] MEDS: Ibuprofen 800 MG TABLET PO ×2 (12:48→23:03)
[2022-01-26] MEDS: hydrOXYzine HCL 25 MG TABLET PO ×2 (12:50→23:03)
--- NOTE | 2022-01-26 15:35 | P.PNPSI_ITS ---
Subjective Subjective Date of Service: 01/26/22 Reason For Visit: CRISIS EVAL/SI Interim History: I spoke with pt's team and evaluated pt today. Says she is thinking about her son, he's on my mind, he . Says it is a bad day, i.e. thinking of past trauma, feels overwhelmed, tearful. Says she is tired. Says i'm so happy with her medications, does not want changes, says her meds are what keeps me from breaking down in tears most of the time. Denies SI/SIB, says she feels safe. Medication Compliance: Yes Side effects from medications: No Attending Groups: Yes Mental Status Exam Mental Status Exam Narrative: Appearance: casually groomed, fair hygiene in NAD Behavior:cooperative psychomotor: no agitation or retardation noted Speech: clear, normal rate/rhythm/volume, spontaneous Thought process:mostly linear Thought content:feeling hopeless. depressed Mood: depressed, tired Affect: blunted, congruent SI:passive no plan HI:none VH/AH:none Delusions:paranoid delusions related to having chip and being monitored Insight/judgment:poor x 2. Memory/cog: alert, oriented x 3. not formally tested, may do MOCA. Diagnostics Vital Signs (24Hr): Vital Signs - 24 hr 01/25/22 17:39 01/25/22 22:30 01/26/22 09:45 Temperature 98.7 F 97.8 F 97.8 F Pulse Rate 58 57 56 Respiratory Rate 14 16 18 Blood Pressure 106/59 L 146/80 H 135/89 Pulse Oximetry 97 98 97 Oxygen Delivery Method Room Air Room Air Room Air BMI result Body Mass Index 23.8 Labs Results: 01/21/22 10:51 01/22/22 08:46 Imaging Radiology Impressions: ITS Impressions Pelvis X-Ray 01/18/22 19:28 IMPRESSION: 1. No acute fracture or dislocation. Lumbar Spine X-Ray 01/18/22 20:07 IMPRESSION: 1. No subluxation or fracture identified. 2. Mild disc degenerative change at L1-L2 and L5-S1 with lower lumbar facet arthrosis. Cervical Spine CT 01/18/22 20:26 IMPRESSION: No cervical spine fracture or traumatic subluxation. Medications Medications Current Medications Acetaminophen (Acetaminophen 325 Mg Tablet) 650 mg PO Q6H PRN PRN Reason: Headache/Pain Mild Scale (1-3) Last Admin: 01/22/22 17:38 Dose: 650 mg Al Hydroxide/Mg Hydroxide (Magnesium Hydrox/Alum Hydrox 30 Ml Oral.Susp) 30 ml PO Q6H PRN PRN Reason: Heartburn/Nausea Amlodipine Besylate (Amlodipine Besylate 5 Mg Tablet) 5 mg PO DAILY [facility]; Protocol Last Admin: 01/26/22 10:06 Dose: 5 mg Baclofen (Baclofen 10 Mg Tablet) 10 mg PO TID [facility] Last Admin: 01/26/22 10:06 Dose: 10 mg Diazepam (Diazepam 5 Mg Tablet) 10 mg PO TID [facility] Last Admin: 01/26/22 10:06 Dose: 10 mg Diazepam (Diazepam 5 Mg Tablet) 5 mg PO DAILY PRN PRN Reason: Muscle Spasm Docusate Sodium (Docusate Sodium 100 Mg Capsule) 100 mg PO BID [facility] Last Admin: 01/26/22 10:07 Dose: 100 mg Fluticasone/Vilanterol (Fluticasone/Vilanterol 100/25 Blst.W.Dev) 1 puff INHALE RDAILY [facility] Last Admin: 01/26/22 10:40 Dose: 1 puff Gabapentin (Gabapentin 600 Mg Tablet) 600 mg PO TID [facility] Last Admin: 01/26/22 10:07 Dose: 600 mg Hydroxyzine HCl (Hydroxyzine Hcl 25 Mg Tablet) 25 mg PO Q6H PRN PRN Reason: Anxiety Last Admin: 01/26/22 12:50 Dose: 25 mg Ibuprofen (Ibuprofen 800 Mg Tablet) 800 mg PO Q6H PRN PRN Reason: Pain, Moderate (Pain Scale 4-6 Last Admin: 01/26/22 12:48 Dose: 800 mg Scenic Carbonate (Scenic Carbonate 300 Mg Tablet) 150 mg PO BID [facility] Last Admin: 01/26/22 10:07 Dose: 150 mg Magnesium Hydroxide (Milk Of Magnesia 30 Ml Oral.Susp) 30 ml PO DAILY PRN PRN Reason: Constipation Melatonin (Melatonin 3 Mg Tablet) 6 mg PO BEDTIME PRN PRN Reason: Insomnia Last Admin: 01/25/22 22:27 Dose: 6 mg Midodrine (Midodrine Hcl 10 Mg Tablet) 10 mg PO TIDWM [facility] Last Admin: 01/26/22 11:59 Dose: 10 mg Olanzapine (Olanzapine 10 Mg Tablet) 20 mg PO BEDTIME [facility] Last Admin: 01/25/22 22:27 Dose: 20 mg Pharmacy Consult (Consult Rx Perform Med Rec) 1 each MISCELLANE ONCE PRN PRN Reason: Consult order Propranolol HCl (Propranolol Hcl 10 Mg Tablet) 10 mg PO BID [facility]; Protocol Last Admin: 01/26/22 10:07 Dose: 10 mg Sodium Chloride (Sodium Chloride 0.65 % Nasal 44 Ml Sprbtl) 1 spray NOSTRIL-B Q1H PRN PRN Reason: Dryness Last Admin: 01/25/22 23:50 Dose: 1 spray Trazodone HCl (Trazodone Hcl 50 Mg Tablet) 50 mg PO BEDTIME PRN PRN Reason: Insomnia Last Admin: 01/26/22 02:52 Dose: 50 mg Allergies Allergies Allergy/AdvReac Type Severity Reaction Status Date / Time albuterol AdvReac Palpitation Verified 11/01/21 20:16 s Assessment & Plan Assessment & Plan (1) Delusional disorder: Status: Acute Code(s): F22 - Delusional disorders Plan Ms. Kennedy is a 56 year-old woman who carries a dx of delusional disorder. 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 Pt self presented to [facility] on 01/18/22 due to increased depression, SI, and self harm attempt via stabbing herself in the leg. Utox positive for cannabis, opiates, and benzos. Per chart, pt has fixed paranoid delusion that her ex-boyfriend is implanting microchips in her body, believes he is tracking her and monitoring her, delusions have been present for the past two years. During most recent admission to [facility], pt was switched from risperdal 0.5 mg BID to olanzapine 20 mg QHS. Plan: Pt reports benefit on current medications, reviewed her PRN meds. Will continue assessment and engagement, unclear if medication will help with fixed delusions vs intensive therapy over time. May benefit from a mood stabilizing medication to target sx of depression and impulsivity. Q15 min safety checks, CV Monitor response to medications. Monitor for safety in the milieu. Discharge on stabilization. Patient seen. Chart reviewed. Discussed with team. Obtain collateral contact info?as needed 01/22- continue current medications. 01/23 we discussed adding lithium. continue olanzapine. 01/24 will start low dose lithium 150mg po BID. continue olanzapine 01/25 No med changes I spent minutes with the patient and/or on the patient floor today, greater than?50% of which was spent counseling/coordinating care. Patient educated on: diagnosis, medication risk/benefits and therapeutic strategies Reason for contiued inpatient stay Substantial Risk for: harm to self, rapid decompensation and med/psych decompensation
[2022-01-26 18:00] VITALS: BP 144/73; PULSE 53; TEMP 36.2; O2SAT 99
[2022-01-26 22:05] VITALS: BP 148/79; PULSE 57; RESP 16; TEMP 36.7; O2SAT 100
[2022-01-26] MEDS: OLANZapine 10 MG TABLET 20 MG PO (22:07)
[2022-01-26] MEDS: Melatonin 3 MG TABLET 6 MG PO (23:03)
[2022-01-27 08:54] LABS: Glucose, Whole Blood 97 mg/dL (60-115)
[2022-01-27 09:04] VITALS: BP 132/58; PULSE 52; RESP 16; TEMP 36.3; O2SAT 99
[2022-01-27] MEDS: Docusate Sodium 100 MG CAPSULE PO (09:07)
[2022-01-27] MEDS: diazePAM 5 MG TABLET 10 MG PO ×3 (09:07→22:05)
[2022-01-27] MEDS: Midodrine HCl 10 MG TABLET PO (09:07)
[2022-01-27] MEDS: Gabapentin 600 MG TABLET PO ×3 (09:08→22:04)
[2022-01-27] MEDS: Propranolol HCL 10 MG TABLET PO ×2 (09:08→22:05)
[2022-01-27] MEDS: Lithium Carbonate 300 MG TABLET 150 MG PO ×2 (09:08→22:03)
[2022-01-27] MEDS: amLODIPine Besylate 5 MG TABLET PO (09:09)
[2022-01-27] MEDS: Baclofen 10 MG TABLET PO ×3 (09:09→22:05)
--- NOTE | 2022-01-27 12:19 | P.PNPSI_ITS ---
Subjective Subjective Date of Service: 01/27/22 Reason For Visit: CRISIS EVAL/SI Subjective Notes: Conditional Voluntary Interim History: Pt reports sleeping better last night, intermittent SI, but denies any plan or intent. Less anxious, less preoccupation about chip inserted. She has been visible on the unit, social with peers. No behavioral concerns.. 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 depressed Mood: depressed, tired Affect: blunted, congruent SI:passive no plan HI:none VH/AH:none Delusions:paranoid delusions related to having chip and being monitored Insight/judgment:poor x 2. Memory/cog: alert, oriented x 3. not formally tested, may do MOCA. Diagnostics Vital Signs (24Hr): Vital Signs - 24 hr 01/26/22 18:00 01/26/22 22:05 01/27/22 09:04 Temperature 97.1 F 98.1 F 97.4 F Pulse Rate 53 57 52 Respiratory Rate 16 16 Blood Pressure 144/73 H 148/79 H 132/58 L Pulse Oximetry 99 100 99 Oxygen Delivery Method Room Air Room Air Room Air BMI result Body Mass Index 23.8 Labs Results: 01/21/22 10:51 01/22/22 08:46 Labs: Laboratory Results - last 48 hr 01/27/22 08:49 POC Glucose 97 Imaging Radiology Impressions: ITS Impressions Pelvis X-Ray 01/18/22 19:28 IMPRESSION: 1. No acute fracture or dislocation. Lumbar Spine X-Ray 01/18/22 20:07 IMPRESSION: 1. No subluxation or fracture identified. 2. Mild disc degenerative change at L1-L2 and L5-S1 with lower lumbar facet arthrosis. Cervical Spine CT 01/18/22 20:26 IMPRESSION: No cervical spine fracture or traumatic subluxation. Medications Medications Current Medications Acetaminophen (Acetaminophen 325 Mg Tablet) 650 mg PO Q6H PRN PRN Reason: Headache/Pain Mild Scale (1-3) Last Admin: 01/22/22 17:38 Dose: 650 mg Al Hydroxide/Mg Hydroxide (Magnesium Hydrox/Alum Hydrox 30 Ml Oral.Susp) 30 ml PO Q6H PRN PRN Reason: Heartburn/Nausea Amlodipine Besylate (Amlodipine Besylate 5 Mg Tablet) 5 mg PO DAILY [facility]; Protocol Last Admin: 01/27/22 09:09 Dose: 5 mg Baclofen (Baclofen 10 Mg Tablet) 10 mg PO TID [facility] Last Admin: 01/27/22 09:09 Dose: 10 mg Diazepam (Diazepam 5 Mg Tablet) 10 mg PO TID [facility] Last Admin: 01/27/22 09:07 Dose: 10 mg Diazepam (Diazepam 5 Mg Tablet) 5 mg PO DAILY PRN PRN Reason: Muscle Spasm Docusate Sodium (Docusate Sodium 100 Mg Capsule) 100 mg PO BID [facility] Last Admin: 01/27/22 09:07 Dose: 100 mg Fluticasone/Vilanterol (Fluticasone/Vilanterol 100/25 Blst.W.Dev) 1 puff INHALE RDAILY [facility] Last Admin: 01/27/22 09:10 Dose: Not Given Gabapentin (Gabapentin 600 Mg Tablet) 600 mg PO TID [facility] Last Admin: 01/27/22 09:08 Dose: 600 mg Hydroxyzine HCl (Hydroxyzine Hcl 25 Mg Tablet) 25 mg PO Q6H PRN PRN Reason: Anxiety Last Admin: 01/27/22 13:10 Dose: 25 mg Ibuprofen (Ibuprofen 800 Mg Tablet) 800 mg PO Q6H PRN PRN Reason: Pain, Moderate (Pain Scale 4-6 Last Admin: 01/27/22 13:10 Dose: 800 mg [place] Carbonate ([place] Carbonate 300 Mg Tablet) 150 mg PO BID [facility] Last Admin: 01/27/22 09:08 Dose: 150 mg Magnesium Hydroxide (Milk Of Magnesia 30 Ml Oral.Susp) 30 ml PO DAILY PRN PRN Reason: Constipation Melatonin (Melatonin 3 Mg Tablet) 6 mg PO BEDTIME PRN PRN Reason: Insomnia Last Admin: 01/26/22 23:03 Dose: 6 mg Midodrine (Midodrine Hcl 10 Mg Tablet) 10 mg PO TIDWM [facility] Last Admin: 01/27/22 13:20 Dose: Not Given Olanzapine (Olanzapine 10 Mg Tablet) 20 mg PO BEDTIME [facility] Last Admin: 01/26/22 22:07 Dose: 20 mg Propranolol HCl (Propranolol Hcl 10 Mg Tablet) 10 mg PO BID [facility]; Protocol Last Admin: 01/27/22 09:08 Dose: 10 mg Sodium Chloride (Sodium Chloride 0.65 % Nasal 44 Ml Sprbtl) 1 spray NOSTRIL-B Q1H PRN PRN Reason: Dryness Last Admin: 01/25/22 23:50 Dose: 1 spray Trazodone HCl (Trazodone Hcl 50 Mg Tablet) 50 mg PO BEDTIME PRN PRN Reason: Insomnia Last Admin: 01/26/22 23:03 Dose: 50 mg Allergies Allergies Allergy/AdvReac Type Severity Reaction Status Date / Time albuterol AdvReac Palpitation Verified 11/01/21 20:16 s Assessment & Plan Assessment & Plan (1) Delusional disorder: Status: Acute Code(s): F22 - Delusional disorders Plan Ms. Kennedy is a 56 year-old woman who carries a dx of delusional disorder. 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 Pt self presented [place] [facility] [place] due to increased depression, SI, and self harm attempt via stabbing herself in the leg. Utox positive for cannabis, opiates, and benzos. Per chart, pt has fixed paranoid delusion that her ex-boyfriend is implanting microchips in her body, believes he is tracking her and monitoring her, delusions have been present for the past two years. During most recent admission to , pt was switched from risperdal 0.5 mg BID to olanzapine 20 mg QHS. Plan: Pt reports benefit on current medications, reviewed her PRN meds. Will continue assessment and engagement, unclear if medication will help with fixed delusions vs intensive therapy over time. May benefit from a mood stabilizing medication to target sx of depression and impulsivity. Q15 min safety checks, CV Monitor response to medications. Monitor for safety in the milieu. Discharge on stabilization. Patient seen. Chart reviewed. Discussed with team. Obtain collateral contact info?as needed 01/22- continue current medications. 01/23 we discussed adding lithium. continue olanzapine. 01/24 will start low dose lithium 150mg po BID. continue olanzapine 01/25 No med changes 01/27 continue current medication, will check lithium level. will add miralax for constipation. I spent minutes with the patient and/or on the patient floor today, greater than?50% of which was spent counseling/coordinating care. Reason for contiued inpatient stay Substantial Risk for: harm to self and inability to function
[2022-01-27] MEDS: hydrOXYzine HCL 25 MG TABLET PO ×2 (13:10→22:59)
[2022-01-27] MEDS: Ibuprofen 800 MG TABLET PO ×2 (13:10→22:59)
[2022-01-27] MEDS: polyethylene glycoL 3350 17 GM POWD.PACK PO (16:00)
[2022-01-27 22:00] VITALS: BP 163/85; PULSE 84; RESP 16; TEMP 36.9; O2SAT 100
[2022-01-27] MEDS: Docusate Sodium 100 MG CAPSULE 200 MG PO (22:04)
[2022-01-27] MEDS: OLANZapine 10 MG TABLET 20 MG PO (22:04)
[2022-01-27] MEDS: Melatonin 3 MG TABLET 6 MG PO (22:59)
[2022-01-27] MEDS: traZODone HCL 50 MG TABLET PO (22:59)
[2022-01-28 09:04] VITALS: BP 131/85; PULSE 47; RESP 16; TEMP 36.6; O2SAT 99
[2022-01-28] MEDS: Midodrine HCl 10 MG TABLET PO ×2 (09:08→14:11)
[2022-01-28] MEDS: Docusate Sodium 100 MG CAPSULE 200 MG PO ×2 (09:08→21:54)
[2022-01-28] MEDS: Lithium Carbonate 300 MG TABLET 150 MG PO (09:08)
[2022-01-28] MEDS: diazePAM 5 MG TABLET 10 MG PO ×3 (09:08→21:53)
[2022-01-28] MEDS: Gabapentin 600 MG TABLET PO ×3 (09:08→21:54)
[2022-01-28] MEDS: Baclofen 10 MG TABLET PO ×3 (09:09→21:54)
[2022-01-28] MEDS: amLODIPine Besylate 5 MG TABLET PO (09:10)
[2022-01-28] MEDS: polyethylene glycoL 3350 17 GM POWD.PACK PO (09:10)
[2022-01-28 09:15] LABS: Lithium 0.27 mmol/L (0.60-1.20)
[2022-01-28] MEDS: Fluticasone/Vilanterol 100/25 BLST.W.DEV 1 PUFF INHALE (09:21)
[2022-01-28 09:45] LABS: TSH reflex Free T4 0.95 uIU/mL (0.32-4.0)
--- NOTE | 2022-01-28 13:20 | P.PNPSI_ITS ---
Subjective Subjective Date of Service: 01/28/22 Reason For Visit: CRISIS EVAL/SI Subjective Notes: Conditional Voluntary Interim History: Met with pt and GRIFFIN Montes. Pt reports waking up at night hearing voices of ex boyfriend. She does report that she knows this is not possible as she doesn't think he is here. She is less preoccupied with delusions of ex boyfriend inserting chip on her. She continues to endorse passive SI, no plan or intent but reports intensity and frequency of these thoughts still about the same. Per nursing, pt has been visible on the unit, social with select peers. No behavioral concerns. Pt reports constipation- not better with miralax- will try mag citrate or enema. pt passing gas and denies abdominal pain. Left leg edema around knee- warm to touch behind knee, not painful but some discomfort- ordered US LE Bilat r/o dvt. 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 depressed Mood: depressed, tired Affect: blunted, congruent SI:passive no plan HI:none VH/AH:none Delusions:paranoid delusions related to having chip and being monitored Insight/judgment:poor x 2. Memory/cog: alert, oriented x 3. not formally tested, may do MOCA. Diagnostics Vital Signs (24Hr): Vital Signs - 24 hr 01/27/22 22:00 01/28/22 09:04 Temperature 98.4 F 98 F Pulse Rate 84 47 L Respiratory Rate 16 16 Blood Pressure 163/85 H 131/85 Pulse Oximetry 100 99 Oxygen Delivery Method Room Air Room Air BMI result Body Mass Index 23.8 Labs Results: 01/21/22 10:51 01/22/22 08:46 Labs: Laboratory Results - last 48 hr 01/27/22 01/28/22 01/28/22 08:49 08:17 08:17 POC Glucose 97 TSH 0.95 [place] 0.27 L Imaging Radiology Impressions: ITS Impressions Pelvis X-Ray 01/18/22 19:28 IMPRESSION: 1. No acute fracture or dislocation. Lumbar Spine X-Ray 01/18/22 20:07 IMPRESSION: 1. No subluxation or fracture identified. 2. Mild disc degenerative change at L1-L2 and L5-S1 with lower lumbar facet arthrosis. Cervical Spine CT 01/18/22 20:26 IMPRESSION: No cervical spine fracture or traumatic subluxation. Medications Medications Current Medications Acetaminophen (Acetaminophen 325 Mg Tablet) 650 mg PO Q6H PRN PRN Reason: Headache/Pain Mild Scale (1-3) Last Admin: 01/22/22 17:38 Dose: 650 mg Al Hydroxide/Mg Hydroxide (Magnesium Hydrox/Alum Hydrox 30 Ml Oral.Susp) 30 ml PO Q6H PRN PRN Reason: Heartburn/Nausea Amlodipine Besylate (Amlodipine Besylate 5 Mg Tablet) 5 mg PO DAILY [facility]; Protocol Last Admin: 01/28/22 09:10 Dose: 5 mg Baclofen (Baclofen 10 Mg Tablet) 10 mg PO TID [facility] Last Admin: 01/28/22 09:09 Dose: 10 mg Diazepam (Diazepam 5 Mg Tablet) 10 mg PO TID [facility] Last Admin: 01/28/22 09:08 Dose: 10 mg Diazepam (Diazepam 5 Mg Tablet) 5 mg PO DAILY PRN PRN Reason: Muscle Spasm Docusate Sodium (Docusate Sodium 100 Mg Capsule) 200 mg PO BID [facility] Last Admin: 01/28/22 09:08 Dose: 200 mg Fluticasone/Vilanterol (Fluticasone/Vilanterol 100/25 Blst.W.Dev) 1 puff INHALE RDAILY [facility] Last Admin: 01/28/22 09:21 Dose: 1 puff Gabapentin (Gabapentin 600 Mg Tablet) 600 mg PO TID [facility] Last Admin: 01/28/22 09:08 Dose: 600 mg Hydroxyzine HCl (Hydroxyzine Hcl 25 Mg Tablet) 25 mg PO Q6H PRN PRN Reason: Anxiety Last Admin: 01/27/22 22:59 Dose: 25 mg Ibuprofen (Ibuprofen 800 Mg Tablet) 800 mg PO Q6H PRN PRN Reason: Pain, Moderate (Pain Scale 4-6 Last Admin: 01/27/22 22:59 Dose: 800 mg [place] Carbonate ([place] Carbonate 300 Mg Tablet) 150 mg PO BID [facility] Last Admin: 01/28/22 09:08 Dose: 150 mg Magnesium Citrate (Magnesium Citrate 300 Ml Solution) 300 ml PO ONCE ONE Stop: 01/28/22 13:17 Magnesium Hydroxide (Milk Of Magnesia 30 Ml Oral.Susp) 30 ml PO DAILY PRN PRN Reason: Constipation Melatonin (Melatonin 3 Mg Tablet) 6 mg PO BEDTIME PRN PRN Reason: Insomnia Last Admin: 01/27/22 22:59 Dose: 6 mg Midodrine (Midodrine Hcl 10 Mg Tablet) 10 mg PO TIDWM [facility] Last Admin: 01/28/22 09:08 Dose: 10 mg Olanzapine (Olanzapine 10 Mg Tablet) 20 mg PO BEDTIME [facility] Last Admin: 01/27/22 22:04 Dose: 20 mg Polyethylene Glycol (Polyethylene Glycol 3350 17 Gm Powd.Pack) 17 gm PO DAILY [facility] Last Admin: 01/28/22 09:10 Dose: 17 gm Propranolol HCl (Propranolol Hcl 10 Mg Tablet) 10 mg PO BID [facility]; Protocol Last Admin: 01/28/22 09:09 Dose: Not Given Sodium Chloride (Sodium Chloride 0.65 % Nasal 44 Ml Sprbtl) 1 spray NOSTRIL-B Q1H PRN PRN Reason: Dryness Last Admin: 01/25/22 23:50 Dose: 1 spray Trazodone HCl (Trazodone Hcl 50 Mg Tablet) 50 mg PO BEDTIME PRN PRN Reason: Insomnia Last Admin: 01/27/22 22:59 Dose: 50 mg Allergies Allergies Allergy/AdvReac Type Severity Reaction Status Date / Time albuterol AdvReac Palpitation Verified 11/01/21 20:16 s Assessment & Plan Assessment & Plan (1) Delusional disorder: Status: Acute Code(s): F22 - Delusional disorders Plan Ms. Kennedy is a 56 year-old woman who carries a dx of delusional disorder. 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 Pt self presented to [facility] on 01/18/22 due to increased depression, SI, and self harm attempt via stabbing herself in the leg. Utox positive for cannabis, opiates, and benzos. Per chart, pt has fixed paranoid delusion that her ex-boyfriend is implanting microchips in her body, believes he is tracking her and monitoring her, delusions have been present for the past two years. During most recent admission to [facility], pt was switched from risperdal 0.5 mg BID to olanzapine 20 mg QHS. Plan: Pt reports benefit on current medications, reviewed her PRN meds. Will continue assessment and engagement, unclear if medication will help with fixed delusions vs intensive therapy over time. May benefit from a mood stabilizing medication to target sx of depression and impulsivity. Q15 min safety checks, CV Monitor response to medications. Monitor for safety in the milieu. Discharge on stabilization. Patient seen. Chart reviewed. Discussed with team. Obtain collateral contact info?as needed 01/22- continue current medications. 01/23 we discussed adding lithium. continue olanzapine. 01/24 will start low dose lithium 150mg po BID. continue olanzapine 01/25 No med changes 01/27 continue current medication, will check lithium level. will add miralax for constipation. 01/28: increase lithium to 300mg po BID. level today at 0.4. Mag citrate for constipation, US doppler of LE Bilat r/o DVT. I spent minutes with the patient and/or on the patient floor today, greater than?50% of which was spent counseling/coordinating care. Reason for contiued inpatient stay Substantial Risk for: harm to self and inability to function
[2022-01-28] MEDS: hydrOXYzine HCL 25 MG TABLET PO ×2 (14:11→22:59)
[2022-01-28 18:40] LABS: Appearance Urine Cloudy; Color Urine Yellow; Glucose Urine UA Negative (Negative); Leukocyte Esterase Urine Large (3+) (Negative); Nitrite Urine Negative (Negative); Urine Blood Small (1+) (Negative); Urine Ketones Negative (Negative); Urine Protein Negative (Neg-Trace)
[2022-01-28 19:20] LABS: Bacteria Urine None Seen (None Seen); Hyaline Casts Urine 0-2 /LPF (0-2); Squamous Epithelial Cell Urine 0-2 /HPF (0-2); UACC Culture Trigger YES; WBC Urine >50 /HPF (0-5)
[2022-01-28 21:52] VITALS: BP 124/76; PULSE 80; TEMP 36.8; O2SAT 98
[2022-01-28] MEDS: OLANZapine 10 MG TABLET 20 MG PO (21:53)
[2022-01-28] MEDS: Lithium Carbonate 300 MG TABLET PO (21:54)
[2022-01-28] MEDS: Propranolol HCL 10 MG TABLET PO (21:54)
[2022-01-28] MEDS: Ibuprofen 800 MG TABLET PO (22:58)
[2022-01-28] MEDS: Melatonin 3 MG TABLET 6 MG PO (22:58)
[2022-01-28] MEDS: traZODone HCL 50 MG TABLET PO (22:59)
--- NOTE | 2022-01-29 01:06 | PC.NURSE ---
UA-hospitalist requested to evaluate results.
[2022-01-29 08:26] VITALS: BP 125/68; PULSE 61; RESP 16; TEMP 36.3; O2SAT 99
[2022-01-29] MEDS: Midodrine HCl 10 MG TABLET PO ×2 (08:27→12:48)
[2022-01-29] MEDS: Docusate Sodium 100 MG CAPSULE 200 MG PO ×2 (08:27→22:40)
[2022-01-29] MEDS: diazePAM 5 MG TABLET 10 MG PO ×3 (08:27→22:41)
[2022-01-29] MEDS: amLODIPine Besylate 5 MG TABLET PO (08:27)
[2022-01-29] MEDS: Propranolol HCL 10 MG TABLET PO ×2 (08:28→22:41)
[2022-01-29] MEDS: Baclofen 10 MG TABLET PO ×3 (08:28→22:41)
[2022-01-29] MEDS: Gabapentin 600 MG TABLET PO ×3 (08:28→22:41)
[2022-01-29] MEDS: Lithium Carbonate 300 MG TABLET PO ×2 (08:28→22:41)
--- NOTE | 2022-01-29 11:04 | HO.PSYCHPN ---
Subjective Subjective Date of Service: 01/29/22 Reason For Visit: CRISIS EVAL/SI Subjective Notes: Conditional Voluntary Interim History: Pt reports intermittent suicidal ideation thoughts. No plan or urge to self harm. She reports burning and pressure when urinating- UA elevated WBC, Leukocytes, hematuria, pending culture but will start antibiotic as pt symptomatic. Pending lithium level. Per nursing, pt has been visible on the unit, social with select peers. 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 depressed Mood: depressed, tired Affect: blunted, congruent SI:passive no plan HI:none VH/AH:none Delusions:paranoid delusions related to having chip and being monitored Insight/judgment:poor x 2. Memory/cog: alert, oriented x 3. not formally tested, may do MOCA. Diagnostics Vital Signs (24Hr): Vital Signs - 24 hr 01/29/22 22:34 01/30/22 06:00 Temperature 97.8 F 98.3 F Pulse Rate 76 98 Respiratory Rate 18 18 Blood Pressure 131/84 98/62 Pulse Oximetry 97 98 Oxygen Delivery Method Room Air Room Air BMI result Body Mass Index 23.8 Labs Results: 01/21/22 10:51 01/22/22 08:46 Labs: Laboratory Results - last 48 hr 01/28/22 01/28/22 01/28/22 08:17 08:17 Unknown TSH 0.95 Urine Color Yellow Urine Appearance Cloudy Urine pH 8.0 Ur Specific [place] 1.010 Urine Protein Negative Urine Glucose (UA) Negative Urine Ketones Negative Urine Blood Small (1+) H Urine Nitrite Negative Ur Leukocyte Esterase Large (3+) H Urine RBC 11-20 H Urine WBC >50 H Ur Squamous Epith Cells 0-2 Urine Bacteria None Seen Hyaline Casts 0-2 [place] 0.27 L Imaging Radiology Impressions: ITS Impressions Pelvis X-Ray 01/18/22 19:28 IMPRESSION: 1. No acute fracture or dislocation. Lumbar Spine X-Ray 01/18/22 20:07 IMPRESSION: 1. No subluxation or fracture identified. 2. Mild disc degenerative change at L1-L2 and L5-S1 with lower lumbar facet arthrosis. Cervical Spine CT 01/18/22 20:26 IMPRESSION: No cervical spine fracture or traumatic subluxation. Venous Duplex 01/28/22 15:01 IMPRESSION: 1. No DVT demonstrated in the left lower extremity. 2. Left greater saphenous vein with varicosities and mid to distal segments, which appear patent. Medications Medications Current Medications Acetaminophen (Acetaminophen 325 Mg Tablet) 650 mg PO Q6H PRN PRN Reason: Headache/Pain Mild Scale (1-3) Last Admin: 01/22/22 17:38 Dose: 650 mg Al Hydroxide/Mg Hydroxide (Magnesium Hydrox/Alum Hydrox 30 Ml Oral.Susp) 30 ml PO Q6H PRN PRN Reason: Heartburn/Nausea Amlodipine Besylate (Amlodipine Besylate 5 Mg Tablet) 5 mg PO DAILY [facility]; Protocol Last Admin: 01/29/22 08:27 Dose: 5 mg Baclofen (Baclofen 10 Mg Tablet) 10 mg PO TID [facility] Last Admin: 01/29/22 22:41 Dose: 10 mg Diazepam (Diazepam 5 Mg Tablet) 10 mg PO TID [facility] Last Admin: 01/29/22 22:41 Dose: 10 mg Diazepam (Diazepam 5 Mg Tablet) 5 mg PO DAILY PRN PRN Reason: Muscle Spasm Docusate Sodium (Docusate Sodium 100 Mg Capsule) 200 mg PO BID [facility] Last Admin: 01/29/22 22:40 Dose: 200 mg Fluticasone/Vilanterol (Fluticasone/Vilanterol 100/25 Blst.W.Dev) 1 puff INHALE RDAILY [facility] Last Admin: 01/29/22 13:36 Dose: Not Given Gabapentin (Gabapentin 600 Mg Tablet) 600 mg PO TID [facility] Last Admin: 01/29/22 22:41 Dose: 600 mg Hydroxyzine HCl (Hydroxyzine Hcl 25 Mg Tablet) 25 mg PO Q6H PRN PRN Reason: Anxiety Last Admin: 01/29/22 23:16 Dose: 25 mg Ibuprofen (Ibuprofen 800 Mg Tablet) 800 mg PO Q6H PRN PRN Reason: Pain, Moderate (Pain Scale 4-6 Last Admin: 01/29/22 23:16 Dose: 800 mg [place] Carbonate ([place] Carbonate 300 Mg Tablet) 300 mg PO BID [facility] Last Admin: 01/29/22 22:41 Dose: 300 mg Magnesium Hydroxide (Milk Of Magnesia 30 Ml Oral.Susp) 30 ml PO DAILY PRN PRN Reason: Constipation Melatonin (Melatonin 3 Mg Tablet) 6 mg PO BEDTIME PRN PRN Reason: Insomnia Last Admin: 01/29/22 23:16 Dose: 6 mg Midodrine (Midodrine Hcl 10 Mg Tablet) 10 mg PO TIDWM [facility] Last Admin: 01/29/22 17:11 Dose: Not Given Olanzapine (Olanzapine 10 Mg Tablet) 20 mg PO BEDTIME [facility] Last Admin: 01/29/22 22:41 Dose: 20 mg Polyethylene Glycol (Polyethylene Glycol 3350 17 Gm Powd.Pack) 17 gm PO DAILY [facility] Last Admin: 01/29/22 12:46 Dose: 17 gm Propranolol HCl (Propranolol Hcl 10 Mg Tablet) 10 mg PO BID [facility]; Protocol Last Admin: 01/29/22 22:41 Dose: 10 mg Sodium Chloride (Sodium Chloride 0.65 % Nasal 44 Ml Sprbtl) 1 spray NOSTRIL-B Q1H PRN PRN Reason: Dryness Last Admin: 01/25/22 23:50 Dose: 1 spray Trazodone HCl (Trazodone Hcl 50 Mg Tablet) 50 mg PO BEDTIME PRN PRN Reason: Insomnia Last Admin: 01/29/22 23:16 Dose: 50 mg Trimethoprim/Sulfamethoxazole (Sulfamethox/Trimeth 800/160 Tablet) 1 tab PO Q12H [facility] Stop: 02/05/22 09:01 Allergies Allergies Allergy/AdvReac Type Severity Reaction Status Date / Time albuterol AdvReac Palpitation Verified 11/01/21 20:16 s Assessment & Plan Assessment & Plan (1) Delusional disorder: Status: Acute Code(s): F22 - Delusional disorders Plan Ms. Kennedy is a 56 year-old woman who carries a dx of delusional disorder. 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 Pt self [place] [facility] [place] due to increased depression, SI, and self harm attempt via stabbing herself in the leg. Utox positive for cannabis, opiates, and benzos. Per chart, pt has fixed paranoid delusion that her ex-boyfriend is implanting microchips in her body, believes he is tracking her and monitoring her, delusions have been present for the past two years. During most recent admission to [facility], pt was switched from risperdal 0.5 mg BID to olanzapine 20 mg QHS. Plan: Pt reports benefit on current medications, reviewed her PRN meds. Will continue assessment and engagement, unclear if medication will help with fixed delusions vs intensive therapy over time. May benefit from a mood stabilizing medication to target sx of depression and impulsivity. Q15 min safety checks, CV Monitor response to medications. Monitor for safety in the milieu. Discharge on stabilization. Patient seen. Chart reviewed. Discussed with team. Obtain collateral contact info?as needed 01/22- continue current medications. 01/23 we discussed adding lithium. continue olanzapine. 01/24 will start low dose lithium 150mg po BID. continue olanzapine 01/25 No med changes 01/27 continue current medication, will check lithium level. will add miralax for constipation. 01/28: increase lithium to 300mg po BID. level today at 0.4. Mag citrate for constipation, US doppler of LE Bilat r/o DVT. 01/29 continue current medications. start bactrim DS for UTI. I spent minutes with the patient and/or on the patient floor today, greater than?50% of which was spent counseling/coordinating care. Reason for contiued inpatient stay Substantial Risk for: inability to function
[2022-01-29] MEDS: polyethylene glycoL 3350 17 GM POWD.PACK PO (12:46)
[2022-01-29] MEDS: Fluticasone/Vilanterol 100/25 BLST.W.DEV 1 PUFF INHALE (12:48)
[2022-01-29] MEDS: hydrOXYzine HCL 25 MG TABLET PO ×2 (13:35→23:16)
[2022-01-29] MEDS: Ibuprofen 800 MG TABLET PO ×2 (13:40→23:16)
[2022-01-29] MEDS: Sulfamethox/Trimeth 800/160 TABLET 1 TAB PO (17:43)
[2022-01-29 22:34] VITALS: BP 131/84; PULSE 76; RESP 18; TEMP 36.6; O2SAT 97
[2022-01-29] MEDS: OLANZapine 10 MG TABLET 20 MG PO (22:41)
[2022-01-29] MEDS: Melatonin 3 MG TABLET 6 MG PO (23:16)
[2022-01-29] MEDS: traZODone HCL 50 MG TABLET PO (23:16)
[2022-01-30 06:00] VITALS: BP 98/62; PULSE 98; RESP 18; TEMP 36.8; O2SAT 98
[2022-01-30 07:00] VITALS: BMI 25.7
[2022-01-30] MEDS: Baclofen 10 MG TABLET PO ×3 (09:45→22:48)
[2022-01-30] MEDS: Docusate Sodium 100 MG CAPSULE 200 MG PO ×2 (09:45→22:50)
[2022-01-30] MEDS: amLODIPine Besylate 5 MG TABLET PO (09:45)
[2022-01-30] MEDS: Midodrine HCl 10 MG TABLET PO ×2 (09:45→12:34)
[2022-01-30] MEDS: Sulfamethox/Trimeth 800/160 TABLET 1 TAB PO ×2 (09:45→22:47)
[2022-01-30] MEDS: diazePAM 5 MG TABLET 10 MG PO ×3 (09:46→22:50)
[2022-01-30] MEDS: Lithium Carbonate 300 MG TABLET PO ×2 (09:46→22:47)
[2022-01-30] MEDS: Gabapentin 600 MG TABLET PO ×3 (09:46→22:47)
[2022-01-30] MEDS: Propranolol HCL 10 MG TABLET PO ×2 (09:46→22:50)
[2022-01-30] MEDS: polyethylene glycoL 3350 17 GM POWD.PACK PO (10:12)
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
[2022-01-30] MEDS: Ibuprofen 800 MG TABLET PO ×2 (12:34→23:55)
[2022-01-30] MEDS: hydrOXYzine HCL 25 MG TABLET PO ×2 (14:00→23:55)
[2022-01-30 18:00] VITALS: BP 155/82; PULSE 90; RESP 18; O2SAT 98
[2022-01-30 22:46] VITALS: BP 130/75; PULSE 62; RESP 18; TEMP 36.3; O2SAT 97
[2022-01-30] MEDS: OLANZapine 10 MG TABLET 20 MG PO (22:50)
[2022-01-30] MEDS: traZODone HCL 50 MG TABLET PO (23:55)
[2022-01-30] MEDS: Melatonin 3 MG TABLET 6 MG PO (23:55)
[2022-01-31] MEDS: Fluticasone/Vilanterol 100/25 BLST.W.DEV 1 PUFF INHALE (10:09)
[2022-01-31] MEDS: Ibuprofen 800 MG TABLET PO ×2 (10:10→23:00)
[2022-01-31] MEDS: Baclofen 10 MG TABLET PO ×3 (10:10→22:04)
[2022-01-31] MEDS: Gabapentin 600 MG TABLET PO ×3 (10:10→22:03)
[2022-01-31] MEDS: polyethylene glycoL 3350 17 GM POWD.PACK PO (10:10)
[2022-01-31] MEDS: hydrOXYzine HCL 25 MG TABLET PO ×2 (10:11→23:01)
[2022-01-31] MEDS: Lithium Carbonate 300 MG TABLET PO ×2 (10:11→22:03)
[2022-01-31] MEDS: diazePAM 5 MG TABLET 10 MG PO ×3 (10:11→22:04)
[2022-01-31] MEDS: Docusate Sodium 100 MG CAPSULE 200 MG PO ×2 (10:12→22:04)
[2022-01-31] MEDS: Midodrine HCl 10 MG TABLET PO ×3 (10:12→17:03)
[2022-01-31] MEDS: Sulfamethox/Trimeth 800/160 TABLET 1 TAB PO ×2 (10:12→22:02)
[2022-01-31] MEDS: Propranolol HCL 10 MG TABLET PO ×2 (10:30→22:03)
[2022-01-31] MEDS: amLODIPine Besylate 5 MG TABLET PO (10:30)
[2022-01-31 10:35] VITALS: BP 126/75; PULSE 66; RESP 16; TEMP 36.7; O2SAT 95
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
[2022-01-31 22:00] VITALS: BP 129/58; PULSE 56; RESP 18; TEMP 36.6; O2SAT 99
[2022-01-31] MEDS: OLANZapine 10 MG TABLET 20 MG PO (22:02)
[2022-01-31] MEDS: traZODone HCL 50 MG TABLET PO (23:01)
[2022-01-31] MEDS: Melatonin 3 MG TABLET 6 MG PO (23:01)
[2022-02-01] MEDS: hydrOXYzine HCL 25 MG TABLET PO ×3 (05:35→23:04)
[2022-02-01] MEDS: Ibuprofen 800 MG TABLET PO ×2 (05:35→23:04)
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
[2022-02-01] MEDS: Midodrine HCl 10 MG TABLET PO ×3 (10:06→17:24)
[2022-02-01] MEDS: Sulfamethox/Trimeth 800/160 TABLET 1 TAB PO ×2 (10:06→21:19)
[2022-02-01] MEDS: Propranolol HCL 10 MG TABLET PO ×2 (10:06→22:18)
[2022-02-01] MEDS: Lithium Carbonate 300 MG TABLET PO ×2 (10:06→22:11)
[2022-02-01] MEDS: amLODIPine Besylate 5 MG TABLET PO (10:06)
[2022-02-01] MEDS: Gabapentin 600 MG TABLET PO ×3 (10:07→22:12)
[2022-02-01] MEDS: Docusate Sodium 100 MG CAPSULE 200 MG PO ×2 (10:07→22:12)
[2022-02-01] MEDS: diazePAM 5 MG TABLET 10 MG PO ×3 (10:07→22:12)
[2022-02-01] MEDS: Baclofen 10 MG TABLET PO ×3 (10:07→22:12)
[2022-02-01] MEDS: polyethylene glycoL 3350 17 GM POWD.PACK PO (10:09)
[2022-02-01] MEDS: Fluticasone/Vilanterol 100/25 BLST.W.DEV 1 PUFF INHALE (10:30)
[2022-02-01 10:32] VITALS: BP 140/72; PULSE 70; RESP 16; TEMP 36.9; O2SAT 97
[2022-02-01] MEDS: Mineral OiL enema 133 ML ENEMA PR (15:59)
[2022-02-01] MEDS: Lactulose 20 GM/30 ML SOLUTION PO ×3 (17:24→21:11)
[2022-02-01 19:10] VITALS: BP 133/80; PULSE 61; RESP 16; TEMP 36.7; O2SAT 97
[2022-02-01] MEDS: OLANZapine 10 MG TABLET 20 MG PO (22:11)
[2022-02-01] MEDS: traZODone HCL 50 MG TABLET PO (23:04)
[2022-02-01] MEDS: Melatonin 3 MG TABLET 6 MG PO (23:05)
--- NOTE | 2022-02-01 23:18 | PC.NURSE ---
Pt c/o? abdominal pain and distension several times throughout the shift stating she has not had a BM since 01/11/2022, that she has a hx of an ulcer that perforated her abdominal wall, and is concerned scar tissue is related to the constipation. She states this is her 2nd experience with long-term constipation.? ??On 3p-11p shift today, pt was administered a mineral oil enema without effect, then three doses lactulose 20gm/30mL without effect. She was expecting relief from the lactulose after five minutes. It was explained the enema had a 5-minute expected effectiveness timeframe, and the lactulose was scheduled for two hours apart to evaluate effectiveness after each dose, however pt perseverated on her symptoms and the expectation of immediate results. Consulted with provider who recommends withholding further laxative until GI eval done. ??After administering the enema, I offered to bring pt?s shorts and underwear to the bathroom so the enema would not leak and soil her clothes. She agreed. When I moved the garments away from her bed, a white tablet fell on the floor. Markings indicated it was Bactrim. Before identifying the pill, pt assumed it was ibuprofen 800mg, then stated the sweater she was wearing was given to her and maybe it was in the pocket. ??Encouraged pt to be mindful of taking all medications and explained antibiotics need to be taken as prescribed to ensure effectiveness. Pt verbalizes understanding and agrees. Reinforcement is needed.
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
[2022-02-02] MEDS: Gabapentin 600 MG TABLET PO ×3 (09:40→22:18)
[2022-02-02] MEDS: polyethylene glycoL 3350 17 GM POWD.PACK PO (09:40)
[2022-02-02] MEDS: Baclofen 10 MG TABLET PO ×3 (09:40→22:17)
[2022-02-02] MEDS: diazePAM 5 MG TABLET 10 MG PO ×3 (09:40→22:16)
[2022-02-02] MEDS: Sulfamethox/Trimeth 800/160 TABLET 1 TAB PO ×2 (09:40→22:19)
[2022-02-02] MEDS: Docusate Sodium 100 MG CAPSULE 200 MG PO ×2 (09:40→22:18)
[2022-02-02] MEDS: Ibuprofen 800 MG TABLET PO ×2 (09:40→19:36)
[2022-02-02] MEDS: Lithium Carbonate 300 MG TABLET PO ×2 (09:41→22:18)
[2022-02-02] MEDS: Midodrine HCl 10 MG TABLET PO ×3 (09:41→17:43)
[2022-02-02] MEDS: hydrOXYzine HCL 25 MG TABLET PO (09:41)
[2022-02-02] MEDS: amLODIPine Besylate 5 MG TABLET PO (09:42)
[2022-02-02 09:49] VITALS: BP 146/65; PULSE 52; RESP 16; TEMP 36.2; O2SAT 98
[2022-02-02] MEDS: Fluticasone/Vilanterol 100/25 BLST.W.DEV 1 PUFF INHALE (10:01)
[2022-02-02] MEDS: Lactulose 20 GM/30 ML SOLUTION 30 GM PO ×2 (14:44→22:23)
[2022-02-02] MEDS: Acetaminophen 325 MG TABLET 650 MG PO (17:43)
--- NOTE | 2022-02-02 19:24 | PC.NURSE ---
At or about 1920, pt sts she had one episode of scant watery stool and has been sleeping most of the day. She continues to express concern over lack of BM.
[2022-02-02 22:10] VITALS: BP 140/75; PULSE 53; RESP 16; TEMP 36.7; O2SAT 100
[2022-02-02] MEDS: OLANZapine 10 MG TABLET 20 MG PO (22:17)
[2022-02-02] MEDS: Propranolol HCL 10 MG TABLET PO (22:18)
--- NOTE | 2022-02-02 22:54 | PC.NURSE ---
Pt expresses being upset and hurt over her constipation being treated with more medication. ?I need to go downstairs.? Pt reiterated her hx of abdominal scar tissue, dns depression, SI/HI/AH/VH, and says her only concern is the constipation and she wants it taken care of. She reiterates she is upset interventions offered have not helped.
[2022-02-03] MEDS: traZODone HCL 50 MG TABLET PO ×4 (00:14→22:37)
[2022-02-03] MEDS: hydrOXYzine HCL 25 MG TABLET PO ×2 (00:14→20:37)
[2022-02-03] MEDS: Melatonin 3 MG TABLET 6 MG PO (00:14)
[2022-02-03] MEDS: Ibuprofen 800 MG TABLET PO ×3 (01:20→20:39)
[2022-02-03] MEDS: diazePAM 5 MG TABLET PO (03:28)
[2022-02-03 06:00] VITALS: BP 124/63; PULSE 50; RESP 16; TEMP 36.8; O2SAT 100
[2022-02-03] MEDS: Lactulose 20 GM/30 ML SOLUTION 30 GM PO (08:24)
[2022-02-03] MEDS: polyethylene glycoL 3350 17 GM POWD.PACK PO ×2 (08:24→16:19)
[2022-02-03] MEDS: Gabapentin 600 MG TABLET PO ×3 (08:25→20:35)
[2022-02-03] MEDS: Sulfamethox/Trimeth 800/160 TABLET 1 TAB PO ×2 (08:25→20:39)
[2022-02-03] MEDS: diazePAM 5 MG TABLET 10 MG PO ×3 (08:25→20:34)
[2022-02-03] MEDS: Docusate Sodium 100 MG CAPSULE 200 MG PO ×2 (08:25→20:38)
[2022-02-03] MEDS: Baclofen 10 MG TABLET PO ×3 (08:25→20:39)
[2022-02-03] MEDS: amLODIPine Besylate 5 MG TABLET PO (08:26)
[2022-02-03] MEDS: Lithium Carbonate 300 MG TABLET PO ×2 (08:26→20:34)
[2022-02-03] MEDS: Midodrine HCl 10 MG TABLET PO (08:26)
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
[2022-02-03 12:56] VITALS: BP 139/82; PULSE 62
--- NOTE | 2022-02-03 13:59 | PC.NURSE ---
GI doctor in for consult.
--- NOTE | 2022-02-03 14:13 | PM.GICN ---
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 History was obtained from the chart review as well as the patient. Patient states that for the past 3 weeks, she has not been able to have a bowel movement. She does pass gas intermittently, denies any abdominal pain, nausea, vomiting. Has not had any changes in her appetite. Recalls a similar event back in August of this year. At that time, was constipated for at least 3 weeks before she had a bowel movement. Medication list is significant for olanzapine 20 mg and lithium which has recently been added. Current bowel regimen includes lactulose, MiraLax and docusate. She also had an enema over the weekend which was not helpful. Patient reports having a colonoscopy 3 years ago at [facility]. Was told to return in 5 years. [facility] Past Medical History Medical History (Updated 02/03/22 @ 15:21 by Gladys Banks MD) Bowel perforation COPD (chronic obstructive pulmonary disease) Delusional disorder Depression Hypertension Lupus Pneumonia Stiff-man syndrome Family History Family History Paternal Grandmother TB (pulmonary tuberculosis) Father FH: HTN (hypertension) Surgical History Surgical History History of cholecystectomy History of mandibular surgery Social History Social History Household Members: Family Household Members Other:: son, gf, grandchildren Housing: House Do you presently have visiting nurse or other home services: No (By history) Alcohol intake: never Patient Tobacco Use Status: Current everyday Tobacco user Tobacco use type: Cigarette Cigarette Packs Per Day: 5 Years Smoked: 42 Smoked in Last 30 Days: Yes e-Cigarette/Vaping Use: Currently Using Patient Interested in Nicotine Replacement: No Patient Given Instructions on How to Stop Smoking: Yes Date Education Initiated: 01/21/22 Second Hand Smoke Exposure: No Substance Use Type: Marijuana, Other and Caffiene Substance Use Type Other:: occasional coffee, benzo scheduled Substance Use Frequency: Daily Last Used Substance: Just Prior to Admission Currently Displaying Signs/Symptoms of Drug Intoxication Withdrawal: No Any prior treatment program specific to substance use: No Have you been hit, kicked, punched, or otherwise hurt by someone within the past year? If so, by whom?: No Do you feel safe in your current relationship?: No Current Relationship Is there a partner from a previous relationship who is making you feel unsafe now?: No Are you made to feel afraid or neglected: No [facility] Healthcare Practices: Jew Advance Directives: No Advance Directives Information Provided: No Advance Directives on File: No Do you have thoughts of harming others: None Do you have a plan to hurt others: No Plan Recently lost weight without trying: Yes How much weight loss: 2-13 pounds Eating poorly because of decreased appetite: Yes Nutrition screen score: 4 Nutrition Risks: Difficulty swallowing Patient : No : No Poor oral hygiene: No service: No Sexual orientation: Straight/Heterosexual Meds Allergies Allergy/AdvReac Type Severity Reaction Status Date / Time albuterol AdvReac Palpitation Verified 11/01/21 20:16 s Active Medications: Current Medications Acetaminophen (Acetaminophen 325 Mg Tablet) 650 mg PO Q6H PRN PRN Reason: Headache/Pain Mild Scale (1-3) Last Admin: 02/02/22 17:43 Dose: 650 mg Al Hydroxide/Mg Hydroxide (Magnesium Hydrox/Alum Hydrox 30 Ml Oral.Susp) 30 ml PO Q6H PRN PRN Reason: Heartburn/Nausea Amlodipine Besylate (Amlodipine Besylate 5 Mg Tablet) 5 mg PO DAILY [facility]; Protocol Last Admin: 02/03/22 08:26 Dose: 5 mg Baclofen (Baclofen 10 Mg Tablet) 10 mg PO TID [facility] Last Admin: 02/03/22 08:25 Dose: 10 mg Diazepam (Diazepam 5 Mg Tablet) 10 mg PO TID [facility] Last Admin: 02/03/22 08:25 Dose: 10 mg Diazepam (Diazepam 5 Mg Tablet) 5 mg PO DAILY PRN PRN Reason: anxiety/restlessness Last Admin: 02/03/22 03:28 Dose: 5 mg Docusate Sodium (Docusate Sodium 100 Mg Capsule) 200 mg PO BID [facility] Last Admin: 02/03/22 08:25 Dose: 200 mg Fluticasone/Vilanterol (Fluticasone/Vilanterol 100/25 Blst.W.Dev) 1 puff INHALE RDAILY [facility] Last Admin: 02/03/22 09:12 Dose: Not Given Gabapentin (Gabapentin 600 Mg Tablet) 600 mg PO TID [facility] Last Admin: 02/03/22 08:25 Dose: 600 mg Hydroxyzine HCl (Hydroxyzine Hcl 25 Mg Tablet) 25 mg PO Q6H PRN PRN Reason: Anxiety Last Admin: 02/03/22 00:14 Dose: 25 mg Ibuprofen (Ibuprofen 800 Mg Tablet) 800 mg PO Q6H PRN PRN Reason: Pain, Moderate (Pain Scale 4-6 Last Admin: 02/03/22 08:25 Dose: 800 mg Lactulose (Lactulose 20 Gm/30 Ml Solution) 30 gm PO TID [facility] Last Admin: 02/03/22 08:24 Dose: 30 gm [place] Carbonate ([place] Carbonate 300 Mg Tablet) 300 mg PO BID [facility] Last Admin: 02/03/22 08:26 Dose: 300 mg Magnesium Hydroxide (Milk Of Magnesia 30 Ml Oral.Susp) 30 ml PO DAILY PRN PRN Reason: Constipation Melatonin (Melatonin 3 Mg Tablet) 6 mg PO BEDTIME PRN PRN Reason: Insomnia Last Admin: 02/03/22 00:14 Dose: 6 mg Midodrine (Midodrine Hcl 10 Mg Tablet) 10 mg PO TIDWM [facility] Last Admin: 02/03/22 13:34 Dose: Not Given Olanzapine (Olanzapine 10 Mg Tablet) 20 mg PO BEDTIME [facility] Last Admin: 02/02/22 22:17 Dose: 20 mg Polyethylene Glycol (Polyethylene Glycol 3350 17 Gm Powd.Pack) 17 gm PO BID@0700,1500 [facility] Propranolol HCl (Propranolol Hcl 10 Mg Tablet) 10 mg PO BID [facility]; Protocol Last Admin: 02/03/22 08:26 Dose: Not Given Sodium Chloride (Sodium Chloride 0.65 % Nasal 44 Ml Sprbtl) 1 spray NOSTRIL-B Q1H PRN PRN Reason: Dryness Last Admin: 01/25/22 23:50 Dose: 1 spray Trazodone HCl (Trazodone Hcl 50 Mg Tablet) 50 mg PO BEDTIME PRN PRN Reason: Insomnia Last Admin: 02/03/22 01:32 Dose: 50 mg Trimethoprim/Sulfamethoxazole (Sulfamethox/Trimeth 800/160 Tablet) 1 tab PO Q12H [facility] Stop: 02/05/22 09:01 Last Admin: 02/03/22 08:25 Dose: 1 tab Home Medications Medication Instructions Recorded Confirmed Last Taken Type duloxetine 60 mg capsule,delayed 1 cap PO DAILY 01/18/22 01/18/22 01/17/22 07:00 History release Physical Exam Vital Signs: Vital Signs: Last Vital Signs Temp 98.2 F 02/03/22 06:00 Pulse 62 02/03/22 12:56 Resp 16 02/03/22 06:00 BP 139/82 02/03/22 12:56 Pulse Ox 100 02/03/22 06:00 O2 Del Method 02/03/22 06:00 BMI result Body Mass Index 25.7 Gen appear: Slightly disheveled, no acute distress HEENT: no icterus, no cervical lymphadenopathy Chest: No overt resp distress CVS: S1/S2, regular Abd: soft, nontender, nondistended, bowel sounds + Psych: Answering questions appropriately Neuro: A/Ox3 noted to move all extremities spontaneously, prominent tremors (L>R) Ext: pitting edema in L leg Results Labs CBC & Chem 7: 01/21/22 10:51 01/22/22 08:46 Labs: Labs reviewed. BMP from last week with normal potassium, calcium level. TSH normal. KUB personally reviewed without any dilated loops of bowel. Large stool burden. Microbiology Microbiology Results: Microbiology 01/28/22 Unknown Urine clean catch - Urine royal top Urine Culture - Final Escherichia coli Assessment and Plan (1) Constipation: Status: Acute Plan Constipation in hospitalized patient is common due to multitude of factors including reduced p.o. intake, reduced mobility, medications. Patient is currently on olanzapine 20 mg, which has anticholinergic affects. [place] also added to her regimen recently. -Would recommend a combination of increased fiber in diet, osmotic and stimulant laxative. -Agree with increasing MiraLax to twice a day. -I have also taken the liberty to add Senokot twice a day. -She will also need per rectal therapy such as mineral oil enema or glycerin suppository. Glycerin suppository ordered as per patient's preference, however will still continue at least twice a day warm water enemas with that. Can also trial [place] flush kit if available. -Pls also check K, Ca and Mg levels and correct PRN. -Encourage hydration and ambulation -If her constipation is not relieved with these measures in 2-3 days, low threshold to obtain cross-sectional imaging. Above was reviewed with care team over the phone. Procedures Date of Service Date of Service: 02/03/22
[2022-02-03] MEDS: Sennosides 8.6 MG TABLET PO ×2 (15:27→20:37)
[2022-02-03 17:36] VITALS: BP 140/71
[2022-02-03] MEDS: Glycerin Pediatric 1 SUPP SOL.PF.APP 3 SUPP PR (18:41)
[2022-02-03 20:34] VITALS: BP 147/94; PULSE 68; RESP 16; TEMP 36.6; O2SAT 98
[2022-02-03] MEDS: OLANZapine 10 MG TABLET 20 MG PO (20:35)
[2022-02-03] MEDS: Propranolol HCL 10 MG TABLET PO (20:37)
[2022-02-04] MEDS: Ibuprofen 800 MG TABLET PO ×2 (05:18→23:05)
[2022-02-04 08:15] VITALS: BP 125/78; PULSE 60; RESP 20; TEMP 36.7; O2SAT 97
[2022-02-04] MEDS: Fluticasone/Vilanterol 100/25 BLST.W.DEV 1 PUFF INHALE (09:14)
[2022-02-04] MEDS: diazePAM 5 MG TABLET 10 MG PO ×3 (09:16→22:17)
[2022-02-04] MEDS: Midodrine HCl 10 MG TABLET PO (09:17)
[2022-02-04] MEDS: Docusate Sodium 100 MG CAPSULE 200 MG PO ×2 (09:17→22:16)
[2022-02-04] MEDS: Gabapentin 600 MG TABLET PO ×3 (09:18→22:17)
[2022-02-04] MEDS: Baclofen 10 MG TABLET PO ×3 (09:18→22:15)
[2022-02-04] MEDS: Lithium Carbonate 300 MG TABLET PO ×2 (09:19→22:16)
[2022-02-04] MEDS: Sennosides 8.6 MG TABLET PO ×2 (09:19→22:16)
[2022-02-04] MEDS: Sulfamethox/Trimeth 800/160 TABLET 1 TAB PO ×2 (09:20→22:15)
[2022-02-04] MEDS: Propranolol HCL 10 MG TABLET PO ×2 (09:20→22:15)
[2022-02-04] MEDS: amLODIPine Besylate 5 MG TABLET PO (09:21)
--- NOTE | 2022-02-04 09:30 | HO.PSYCHPN ---
Subjective Subjective Date of Service: 02/04/22 Reason For Visit: CRISIS EVAL/SI Subjective Notes: Conditional Voluntary Interim History: Pt somewhat irritable, refusing some medication in the AM as she states that continues to have constipation- reinforced that Sales And Service Consultant changed meds day before, and recommends to wait 2 day prior to changing treatment/interventions. Pt somatically preoccupied, suicidal ideation reported in context of this. Pt later calmer. She is visible on the unit, social with peers, needs reminded to keep appropriate boundaries with peers (huging, giving advise in terms of their treatment). No behavioral concerns. Medication Compliance: Yes Review of Systems Review of Systems Severe constipation Yes all other systems are reviewed and are negative Constitutional: Reports as per HPI Mental Status Exam Mental Status Exam Narrative: In today's visit, she is alert, oriented and pleasant. Normal speech. Little eye contact. Affect is appropriate and constricted. Moderate dysphoria/depression present. Feelings of hopelessness. No SI. No signs of psychosis. Cognitively is grossly intact. Judgment and Diagnostics Vital Signs (24Hr): Vital Signs - 24 hr 02/05/22 13:00 02/05/22 20:15 02/05/22 22:08 Temperature 98.1 F 98 F Pulse Rate 58 59 Respiratory Rate 18 16 Blood Pressure 127/72 135/64 177/72 H Pulse Oximetry 97 99 Oxygen Delivery Method Room Air Room Air 02/05/22 22:00 02/05/22 23:06 02/05/22 23:42 Temperature Pulse Rate 54 58 Respiratory Rate 16 Blood Pressure 167/77 H 151/76 H 135/72 Pulse Oximetry 95 Oxygen Delivery Method Room Air BMI result Body Mass Index 25.7 Labs Results: 01/21/22 10:51 02/06/22 08:26 Labs: Laboratory Results - last 48 hr 02/05/22 02/05/22 02/06/22 07:55 07:55 08:26 Sodium 140 138 Potassium 4.3 4.7 Chloride 106 103 Carbon Dioxide 25 25 Anion Gap 13 15 BUN 25 H 28 H Creatinine 1.01 1.21 Estim Creat Clear Calc 56.0 46.8 Estimated GFR 56 46 Random Glucose 98 100 Calcium 9.2 9.8 D Total Bilirubin < 0.2 0.2 AST 18 D 25 ALT 22 24 Alkaline Phosphatase 147 H D 168 H Total Protein 5.5 L 6.4 L Albumin 3.5 4.1 TSH 2.16 [place] 0.79 Imaging Radiology Impressions: ITS Impressions Pelvis X-Ray 01/18/22 19:28 IMPRESSION: 1. No acute fracture or dislocation. Lumbar Spine X-Ray 01/18/22 20:07 IMPRESSION: 1. No subluxation or fracture identified. 2. Mild disc degenerative change at L1-L2 and L5-S1 with lower lumbar facet arthrosis. Cervical Spine CT 01/18/22 20:26 IMPRESSION: No cervical spine fracture or traumatic subluxation. Venous Duplex 01/28/22 15:01 IMPRESSION: 1. No DVT demonstrated in the left lower extremity. 2. Left greater saphenous vein with varicosities and mid to distal segments, which appear patent. KUB X-Ray 02/01/22 08:25 IMPRESSION: Moderate to large colonic stool burden. Venous Duplex 02/04/22 13:10 IMPRESSION: No DVT demonstrated in the left lower extremity. Left greater saphenous vein varicosities similar to previous exam. Medications Medications Current Medications Acetaminophen (Acetaminophen 325 Mg Tablet) 650 mg PO Q6H PRN PRN Reason: Headache/Pain Mild Scale (1-3) Last Admin: 02/02/22 17:43 Dose: 650 mg Al Hydroxide/Mg Hydroxide (Magnesium Hydrox/Alum Hydrox 30 Ml Oral.Susp) 30 ml PO Q6H PRN PRN Reason: Heartburn/Nausea Amlodipine Besylate (Amlodipine Besylate 5 Mg Tablet) 5 mg PO DAILY [facility]; Protocol Last Admin: 02/06/22 08:30 Dose: 5 mg Baclofen (Baclofen 10 Mg Tablet) 10 mg PO TID [facility] Last Admin: 02/06/22 08:30 Dose: 10 mg Diazepam (Diazepam 5 Mg Tablet) 10 mg PO TID [facility] Last Admin: 02/06/22 08:29 Dose: 10 mg Diazepam (Diazepam 5 Mg Tablet) 5 mg PO DAILY PRN PRN Reason: anxiety/restlessness Last Admin: 02/03/22 03:28 Dose: 5 mg Docusate Sodium (Docusate Sodium 100 Mg Capsule) 200 mg PO BID [facility] Last Admin: 02/06/22 08:30 Dose: 200 mg Fluticasone/Vilanterol (Fluticasone/Vilanterol 100/25 Blst.W.Dev) 1 puff INHALE RDAILY [facility] Last Admin: 02/06/22 08:40 Dose: 1 puff Gabapentin (Gabapentin 600 Mg Tablet) 600 mg PO TID [facility] Last Admin: 02/06/22 08:29 Dose: 600 mg Glycerin (Glycerin Pediatric 1 Supp Felicia.Pf.Octavia) 1 supp [place] TID [facility] Last Admin: 02/06/22 08:31 Dose: Not Given Hydroxyzine HCl (Hydroxyzine Hcl 25 Mg Tablet) 25 mg PO Q6H PRN PRN Reason: Anxiety Last Admin: 02/06/22 08:39 Dose: 25 mg Ibuprofen (Ibuprofen 800 Mg Tablet) 800 mg PO Q6H PRN PRN Reason: Pain, Moderate (Pain Scale 4-6 Last Admin: 02/06/22 08:39 Dose: 800 mg Lactulose (Lactulose 20 Gm/30 Ml Solution) 30 gm PO TID PRN PRN Reason: Constipation Last Admin: 02/06/22 08:38 Dose: 30 gm Magnesium Hydroxide (Milk Of Magnesia 30 Ml Oral.Susp) 30 ml PO DAILY PRN PRN Reason: Constipation Melatonin (Melatonin 3 Mg Tablet) 6 mg PO BEDTIME PRN PRN Reason: Insomnia Last Admin: 02/05/22 22:58 Dose: 6 mg Midodrine (Midodrine Hcl 10 Mg Tablet) 10 mg PO TIDWM [facility] Last Admin: 02/06/22 08:30 Dose: Not Given Olanzapine (Olanzapine 10 Mg Tablet) 20 mg PO BEDTIME [facility] Last Admin: 02/05/22 21:54 Dose: 20 mg Polyethylene Glycol (Polyethylene Glycol 3350 17 Gm Powd.Pack) 17 gm PO BID@0700,1500 [facility] Last Admin: 02/06/22 08:39 Dose: 17 gm Propranolol HCl (Propranolol Hcl 10 Mg Tablet) 10 mg PO BID [facility]; Protocol Last Admin: 02/06/22 08:29 Dose: 10 mg Senna (Sennosides 8.6 Mg Tablet) 8.6 mg PO BID [facility] Last Admin: 02/06/22 08:30 Dose: 8.6 mg Sodium Chloride (Sodium Chloride 0.65 % Nasal 44 Ml Sprbtl) 1 spray NOSTRIL-B Q1H PRN PRN Reason: Dryness Last Admin: 01/25/22 23:50 Dose: 1 spray Trazodone HCl (Trazodone Hcl 50 Mg Tablet) 50 mg PO BEDTIME PRN PRN Reason: Insomnia Last Admin: 02/06/22 00:03 Dose: 50 mg Allergies Allergies Allergy/AdvReac Type Severity Reaction Status Date / Time albuterol AdvReac Palpitation Verified 11/01/21 20:16 s Assessment & Plan Assessment & Plan (1) Delusional disorder: Status: Acute Code(s): F22 - Delusional disorders Plan 02/03- continue current medications. seen by GI specialist re: severe constipation. 02/04- continue current medications I spent minutes with the patient and/or on the patient floor today, greater than?50% of which was spent counseling/coordinating care. Reason for contiued inpatient stay Substantial Risk for: harm to self
[2022-02-04 16:10] VITALS: BP 99/53; PULSE 53; RESP 16; TEMP 36.3; O2SAT 96
[2022-02-04 22:05] VITALS: BP 142/66; PULSE 124; RESP 16; TEMP 36.7; O2SAT 99
[2022-02-04] MEDS: OLANZapine 10 MG TABLET 20 MG PO (22:17)
[2022-02-04] MEDS: Melatonin 3 MG TABLET 6 MG PO (23:05)
[2022-02-04] MEDS: traZODone HCL 50 MG TABLET PO (23:05)
[2022-02-04] MEDS: hydrOXYzine HCL 25 MG TABLET PO (23:06)
[2022-02-05] VITALS (7 sets, daily range): BP systolic 116–177; BP diastolic 63–77; PULSE 54–59; RESP 16–18; TEMP 36.5–36.7; O2SAT 95–99
[2022-02-05 09:04] LABS: Lithium 0.79 mmol/L (0.60-1.20)
[2022-02-05 09:15] LABS: Alanine Aminotransferase 22 U/L (0-31); Albumin Level 3.5 g/dL (3.5-5.0); Alkaline Phosphatase 147 U/L (39-117); Anion Gap 13 (12-20); Aspartate Amino Transferase 18 U/L (5-31); Bilirubin Total < 0.2 mg/dL (0.0-1.0); Blood Urea Nitrogen 25 mg/dL (9-16); Calcium 9.2 mg/dL (8.4-10.2); Carbon Dioxide 25 mmol/L (22-29); Chloride 106 mmol/L (96-108); Estimated Glomerular Filt Rate 56; Glucose Random 98 mg/dL (60-115); Potassium 4.3 mmol/L (3.3-5.1); Sodium 140 mmol/L (135-145); Total Protein 5.5 g/dL (6.5-8.0)
--- NOTE | 2022-02-05 09:18 | HO.PSYCHPN ---
Subjective Subjective Date of Service: 02/05/22 Reason For Visit: CRISIS EVAL/SI Subjective Notes: Conditional Voluntary Interim History: Pt reports feeling less depressed. She denies suicidal ideation. Continues to have constipation, no BM for weeks now. GI specialist following. We discussed worsening of renal function- will d/c lithium, pt reports medication helpful for her mood, and feeling more hopeful. She does admit that when she reported suicidal ideation yesterday was in context of feeling frustrated but denies that it was true suicidality. We discussed that she feels comfortable on the unit but may not be most thereutic at this point. Medication Compliance: Yes Side effects from medications: No Review of Systems Review of Systems Severe constipation Yes all other systems are reviewed and are negative Constitutional: Reports as per HPI Mental Status Exam Mental Status Exam Narrative: In today's visit, she is alert, oriented and pleasant. Normal speech. Little eye contact. Affect is appropriate and constricted. Moderate dysphoria/depression present. Feelings of hopelessness. No SI. No signs of psychosis. Cognitively is grossly intact. Judgment and Diagnostics Vital Signs (24Hr): Vital Signs - 24 hr 02/05/22 13:00 02/05/22 20:15 02/05/22 22:08 Temperature 98.1 F 98 F Pulse Rate 58 59 Respiratory Rate 18 16 Blood Pressure 127/72 135/64 177/72 H Pulse Oximetry 97 99 Oxygen Delivery Method Room Air Room Air 02/05/22 22:00 02/05/22 23:06 02/05/22 23:42 Temperature Pulse Rate 54 58 Respiratory Rate 16 Blood Pressure 167/77 H 151/76 H 135/72 Pulse Oximetry 95 Oxygen Delivery Method Room Air BMI result Body Mass Index 25.7 Labs Results: 01/21/22 10:51 02/05/22 07:55 Labs: Laboratory Results - last 48 hr 02/05/22 02/05/22 07:55 07:55 Sodium 140 Potassium 4.3 Chloride 106 Carbon Dioxide 25 Anion Gap 13 BUN 25 H Creatinine 1.01 Estim Creat Clear Calc 56.0 Estimated GFR 56 Random Glucose 98 Calcium 9.2 Total Bilirubin < 0.2 AST 18 D ALT 22 Alkaline Phosphatase 147 H D Total Protein 5.5 L Albumin 3.5 TSH 2.16 [place] 0.79 Imaging Radiology Impressions: ITS Impressions Pelvis X-Ray 01/18/22 19:28 IMPRESSION: 1. No acute fracture or dislocation. Lumbar Spine X-Ray 01/18/22 20:07 IMPRESSION: 1. No subluxation or fracture identified. 2. Mild disc degenerative change at L1-L2 and L5-S1 with lower lumbar facet arthrosis. Cervical Spine CT 01/18/22 20:26 IMPRESSION: No cervical spine fracture or traumatic subluxation. Venous Duplex 01/28/22 15:01 IMPRESSION: 1. No DVT demonstrated in the left lower extremity. 2. Left greater saphenous vein with varicosities and mid to distal segments, which appear patent. KUB X-Ray 02/01/22 08:25 IMPRESSION: Moderate to large colonic stool burden. Venous Duplex 02/04/22 13:10 IMPRESSION: No DVT demonstrated in the left lower extremity. Left greater saphenous vein varicosities similar to previous exam. Medications Medications Current Medications Acetaminophen (Acetaminophen 325 Mg Tablet) 650 mg PO Q6H PRN PRN Reason: Headache/Pain Mild Scale (1-3) Last Admin: 02/02/22 17:43 Dose: 650 mg Al Hydroxide/Mg Hydroxide (Magnesium Hydrox/Alum Hydrox 30 Ml Oral.Susp) 30 ml PO Q6H PRN PRN Reason: Heartburn/Nausea Amlodipine Besylate (Amlodipine Besylate 5 Mg Tablet) 5 mg PO DAILY [facility]; Protocol Last Admin: 02/06/22 08:30 Dose: 5 mg Baclofen (Baclofen 10 Mg Tablet) 10 mg PO TID [facility] Last Admin: 02/06/22 08:30 Dose: 10 mg Diazepam (Diazepam 5 Mg Tablet) 10 mg PO TID [facility] Last Admin: 02/06/22 08:29 Dose: 10 mg Diazepam (Diazepam 5 Mg Tablet) 5 mg PO DAILY PRN PRN Reason: anxiety/restlessness Last Admin: 02/03/22 03:28 Dose: 5 mg Docusate Sodium (Docusate Sodium 100 Mg Capsule) 200 mg PO BID [facility] Last Admin: 02/06/22 08:30 Dose: 200 mg Fluticasone/Vilanterol (Fluticasone/Vilanterol 100/25 Blst.W.Dev) 1 puff INHALE RDAILY [facility] Last Admin: 02/06/22 08:40 Dose: 1 puff Gabapentin (Gabapentin 600 Mg Tablet) 600 mg PO TID [facility] Last Admin: 02/06/22 08:29 Dose: 600 mg Glycerin (Glycerin Pediatric 1 Supp Felicia.Pf.Octavia) 1 supp [place] TID [facility] Last Admin: 02/06/22 08:31 Dose: Not Given Hydroxyzine HCl (Hydroxyzine Hcl 25 Mg Tablet) 25 mg PO Q6H PRN PRN Reason: Anxiety Last Admin: 02/06/22 08:39 Dose: 25 mg Ibuprofen (Ibuprofen 800 Mg Tablet) 800 mg PO Q6H PRN PRN Reason: Pain, Moderate (Pain Scale 4-6 Last Admin: 02/06/22 08:39 Dose: 800 mg Lactulose (Lactulose 20 Gm/30 Ml Solution) 30 gm PO TID PRN PRN Reason: Constipation Last Admin: 02/06/22 08:38 Dose: 30 gm Magnesium Hydroxide (Milk Of Magnesia 30 Ml Oral.Susp) 30 ml PO DAILY PRN PRN Reason: Constipation Melatonin (Melatonin 3 Mg Tablet) 6 mg PO BEDTIME PRN PRN Reason: Insomnia Last Admin: 02/05/22 22:58 Dose: 6 mg Midodrine (Midodrine Hcl 10 Mg Tablet) 10 mg PO TIDWM [facility] Last Admin: 02/06/22 08:30 Dose: Not Given Olanzapine (Olanzapine 10 Mg Tablet) 20 mg PO BEDTIME [facility] Last Admin: 02/05/22 21:54 Dose: 20 mg Polyethylene Glycol (Polyethylene Glycol 3350 17 Gm Powd.Pack) 17 gm PO BID@0700,1500 [facility] Last Admin: 02/06/22 08:39 Dose: 17 gm Propranolol HCl (Propranolol Hcl 10 Mg Tablet) 10 mg PO BID [facility]; Protocol Last Admin: 02/06/22 08:29 Dose: 10 mg Senna (Sennosides 8.6 Mg Tablet) 8.6 mg PO BID [facility] Last Admin: 02/06/22 08:30 Dose: 8.6 mg Sodium Chloride (Sodium Chloride 0.65 % Nasal 44 Ml Sprbtl) 1 spray NOSTRIL-B Q1H PRN PRN Reason: Dryness Last Admin: 01/25/22 23:50 Dose: 1 spray Trazodone HCl (Trazodone Hcl 50 Mg Tablet) 50 mg PO BEDTIME PRN PRN Reason: Insomnia Last Admin: 02/06/22 00:03 Dose: 50 mg Allergies Allergies Allergy/AdvReac Type Severity Reaction Status Date / Time albuterol AdvReac Palpitation Verified 11/01/21 20:16 s Assessment & Plan Assessment & Plan (1) Delusional disorder: Status: Acute Code(s): F22 - Delusional disorders Plan 02/03- continue current medications. seen by GI specialist re: severe constipation. 02/04- continue current medications 02/05 recheck renal function, d/c lithium (worsening renal fnx), continue to have constipation- GI aware and following. I spent minutes with the patient and/or on the patient floor today, greater than?50% of which was spent counseling/coordinating care. Reason for contiued inpatient stay Substantial Risk for: harm to self
[2022-02-05 09:34] LABS: TSH reflex Free T4 2.16 uIU/mL (0.32-4.0)
[2022-02-05] MEDS: Fluticasone/Vilanterol 100/25 BLST.W.DEV 1 PUFF INHALE (09:53)
[2022-02-05] MEDS: Docusate Sodium 100 MG CAPSULE 200 MG PO ×2 (09:54→21:55)
[2022-02-05] MEDS: diazePAM 5 MG TABLET 10 MG PO ×3 (09:56→21:55)
[2022-02-05] MEDS: Gabapentin 600 MG TABLET PO ×3 (09:57→21:56)
[2022-02-05] MEDS: Midodrine HCl 10 MG TABLET PO ×3 (09:57→17:48)
[2022-02-05] MEDS: amLODIPine Besylate 5 MG TABLET PO (09:58)
[2022-02-05] MEDS: Sennosides 8.6 MG TABLET PO ×2 (09:58→21:56)
[2022-02-05] MEDS: Baclofen 10 MG TABLET PO ×3 (09:59→21:55)
[2022-02-05] MEDS: Propranolol HCL 10 MG TABLET PO ×2 (09:59→21:55)
[2022-02-05] MEDS: Lithium Carbonate 300 MG TABLET PO (09:59)
[2022-02-05] MEDS: Sulfamethox/Trimeth 800/160 TABLET 1 TAB PO (10:00)
[2022-02-05] MEDS: polyethylene glycoL 3350 17 GM POWD.PACK PO ×2 (10:04→15:20)
[2022-02-05] MEDS: OLANZapine 10 MG TABLET 20 MG PO (21:54)
[2022-02-05] MEDS: traZODone HCL 50 MG TABLET PO (22:57)
[2022-02-05] MEDS: Ibuprofen 800 MG TABLET PO (22:57)
[2022-02-05] MEDS: hydrOXYzine HCL 25 MG TABLET PO (22:57)
[2022-02-05] MEDS: Melatonin 3 MG TABLET 6 MG PO (22:58)
--- NOTE | 2022-02-05 23:20 | PC.NURSE ---
Pt was agitated early in the shift in her room during her roommate?s assessment, angry that ?someone took my clothes. I know where they were. They need to find them.? Minutes later, she stated she found her clothes and was pleasant and cooperative the remainder of the shift. Dns SI/HI/AH/VH/safety concerns. Appears A&O, INAD, cooperative, medication adherent but refused suppository, perseverance on many health concerns.
[2022-02-06] MEDS: traZODone HCL 50 MG TABLET PO ×2 (00:03→22:59)
[2022-02-06 07:00] VITALS: BMI 26.0
[2022-02-06 08:20] VITALS: BP 133/70; PULSE 65; RESP 20; TEMP 36.7; O2SAT 98
[2022-02-06] MEDS: Gabapentin 600 MG TABLET PO (08:29)
[2022-02-06] MEDS: diazePAM 5 MG TABLET 10 MG PO ×3 (08:29→21:50)
[2022-02-06] MEDS: Propranolol HCL 10 MG TABLET PO ×2 (08:29→21:51)
[2022-02-06] MEDS: Baclofen 10 MG TABLET PO ×3 (08:30→21:50)
[2022-02-06] MEDS: amLODIPine Besylate 5 MG TABLET PO (08:30)
[2022-02-06] MEDS: Sennosides 8.6 MG TABLET PO ×2 (08:30→21:50)
[2022-02-06] MEDS: Docusate Sodium 100 MG CAPSULE 200 MG PO ×2 (08:30→21:49)
[2022-02-06] MEDS: Lactulose 20 GM/30 ML SOLUTION 30 GM PO (08:38)
[2022-02-06] MEDS: Ibuprofen 800 MG TABLET PO ×2 (08:39→23:10)
[2022-02-06] MEDS: hydrOXYzine HCL 25 MG TABLET PO (08:39)
[2022-02-06] MEDS: polyethylene glycoL 3350 17 GM POWD.PACK PO ×2 (08:39→15:57)
[2022-02-06] MEDS: Fluticasone/Vilanterol 100/25 BLST.W.DEV 1 PUFF INHALE (08:40)
[2022-02-06 09:23] LABS: Alanine Aminotransferase 24 U/L (0-31); Albumin Level 4.1 g/dL (3.5-5.0); Alkaline Phosphatase 168 U/L (39-117); Anion Gap 15 (12-20); Aspartate Amino Transferase 25 U/L (5-31); Bilirubin Total 0.2 mg/dL (0.0-1.0); Blood Urea Nitrogen 28 mg/dL (9-16); Calcium 9.8 mg/dL (8.4-10.2); Carbon Dioxide 25 mmol/L (22-29); Chloride 103 mmol/L (96-108); Creatinine Clr Calc Pharmacy 46.8; Estimated Glomerular Filt Rate 46; Glucose Random 100 mg/dL (60-115); Potassium 4.7 mmol/L (3.3-5.1); Sodium 138 mmol/L (135-145); Total Protein 6.4 g/dL (6.5-8.0)
--- NOTE | 2022-02-06 10:11 | HO.PSYCHPN ---
Subjective Subjective Date of Service: 02/06/22 Reason For Visit: CRISIS EVAL/SI Subjective Notes: Conditional Voluntary Interim History: Met with pt and GRIFFIN Montes. Pt with some catastrophic thinking stating no one has done anything for her constipation, that she should be admitted medically. Somewhat reluctant to use enema/suppository stating she tried it all, and nothing works, educated on increase dose and frequency per [facility] Calendar Control Clerk. She reports intermittent suicidal ideation, some in context of feeling frustrated or ignored rather than true suicidality. She is observed socializing, attends groups, very comfortable on unit, which prompts her to continue reporting SI as she has admitted it, to stay longer. We discussed at [facility] supports in the community, limitations of inpatient unit and its therapeutic benefit in her situation. She appears in agreement to be discharged on Sunday 02/11. Medication Compliance: Yes Side effects from medications: No Review of Systems Review of Systems Severe constipation Yes all other systems are reviewed and are negative Constitutional: Reports as per [facility] Mental Status Exam Mental Status Exam Narrative: In today's visit, she is alert, oriented and pleasant. Normal speech. Little eye contact. Affect is appropriate and constricted. Moderate dysphoria/depression present. Feelings of hopelessness. No SI. No signs of psychosis. Cognitively is grossly intact. Judgment and Diagnostics Vital Signs (24Hr): Vital Signs - 24 hr 02/06/22 21:45 02/07/22 09:01 Temperature 98.1 F 97.2 F Pulse Rate 64 70 Respiratory Rate 18 16 Blood Pressure 132/64 139/74 Pulse Oximetry 97 96 Oxygen Delivery Method Room Air Room Air BMI result Body Mass Index 26.0 Labs Results: 01/21/22 10:51 02/06/22 08:26 Labs: Laboratory Results - last 48 hr 02/06/22 08:26 Sodium 138 Potassium 4.7 Chloride 103 Carbon Dioxide 25 Anion Gap 15 BUN 28 H Creatinine 1.21 Estim Creat Clear Calc 46.8 Estimated GFR 46 Random Glucose 100 Calcium 9.8 D Total Bilirubin 0.2 AST 25 ALT 24 Alkaline Phosphatase 168 H Total Protein 6.4 L Albumin 4.1 Imaging Radiology Impressions: ITS Impressions Pelvis X-Ray 01/18/22 19:28 IMPRESSION: 1. No acute fracture or dislocation. Lumbar Spine X-Ray 01/18/22 20:07 IMPRESSION: 1. No subluxation or fracture identified. 2. Mild disc degenerative change at L1-L2 and L5-S1 with lower lumbar facet arthrosis. Cervical Spine CT 01/18/22 20:26 IMPRESSION: No cervical spine fracture or traumatic subluxation. Venous Duplex 01/28/22 15:01 IMPRESSION: 1. No DVT demonstrated in the left lower extremity. 2. Left greater saphenous vein with varicosities and mid to distal segments, which appear patent. KUB X-Ray 02/01/22 08:25 IMPRESSION: Moderate to large colonic stool burden. Venous Duplex 02/04/22 13:10 IMPRESSION: No DVT demonstrated in the left lower extremity. Left greater saphenous vein varicosities similar to previous exam. KUB X-Ray 02/06/22 15:44 IMPRESSION: Mild to moderate stool burden represents interval decrease from the previous study. Medications Medications Current Medications Acetaminophen (Acetaminophen 325 Mg Tablet) 650 mg PO Q6H PRN PRN Reason: Headache/Pain Mild Scale (1-3) Last Admin: 02/02/22 17:43 Dose: 650 mg Al Hydroxide/Mg Hydroxide (Magnesium Hydrox/Alum Hydrox 30 Ml Oral.Susp) 30 ml PO Q6H PRN PRN Reason: Heartburn/Nausea Amlodipine Besylate (Amlodipine Besylate 5 Mg Tablet) 5 mg PO DAILY [facility]; Protocol Last Admin: 02/07/22 09:07 Dose: 5 mg Baclofen (Baclofen 10 Mg Tablet) 10 mg PO TID [facility] Last Admin: 02/07/22 09:07 Dose: 10 mg Diazepam (Diazepam 5 Mg Tablet) 10 mg PO TID [facility] Last Admin: 02/07/22 09:05 Dose: 10 mg Diazepam (Diazepam 5 Mg Tablet) 5 mg PO DAILY PRN PRN Reason: anxiety/restlessness Last Admin: 02/03/22 03:28 Dose: 5 mg Docusate Sodium (Docusate Sodium 100 Mg Capsule) 200 mg PO BID [facility] Last Admin: 02/07/22 09:04 Dose: 200 mg Fluticasone/Vilanterol (Fluticasone/Vilanterol 100/25 Blst.W.Dev) 1 puff INHALE RDAILY [facility] Last Admin: 02/07/22 09:10 Dose: Not Given Gabapentin (Gabapentin 600 Mg Tablet) 300 mg PO TID [facility] Last Admin: 02/07/22 09:05 Dose: 300 mg Glycerin (Glycerin Pediatric 1 Supp Felicia.Pf.Octavia) 1 supp RI TID [facility] Last Admin: 02/06/22 21:50 Dose: 1 supp Hydroxyzine HCl (Hydroxyzine Hcl 25 Mg Tablet) 25 mg PO Q6H PRN PRN Reason: Anxiety Last Admin: 02/06/22 08:39 Dose: 25 mg Ibuprofen (Ibuprofen 800 Mg Tablet) 800 mg PO Q6H PRN PRN Reason: Pain, Moderate (Pain Scale 4-6 Last Admin: 02/06/22 23:10 Dose: 800 mg Lactulose (Lactulose 20 Gm/30 Ml Solution) 30 gm PO TID PRN PRN Reason: Constipation Last Admin: 02/06/22 08:38 Dose: 30 gm Magnesium Hydroxide (Milk Of Magnesia 30 Ml Oral.Susp) 30 ml PO DAILY PRN PRN Reason: Constipation Melatonin (Melatonin 3 Mg Tablet) 6 mg PO BEDTIME PRN PRN Reason: Insomnia Last Admin: 02/06/22 22:59 Dose: 6 mg Midodrine (Midodrine Hcl 10 Mg Tablet) 10 mg PO TIDWM [facility] Last Admin: 02/07/22 09:03 Dose: Not Given Olanzapine (Olanzapine 10 Mg Tablet) 20 mg PO BEDTIME [facility] Last Admin: 02/06/22 21:49 Dose: 20 mg Polyethylene Glycol (Polyethylene Glycol 3350 17 Gm Powd.Pack) 17 gm PO BID@0700,1500 [facility] Last Admin: 02/06/22 15:57 Dose: 17 gm Propranolol HCl (Propranolol Hcl 10 Mg Tablet) 10 mg PO BID [facility]; Protocol Last Admin: 02/07/22 09:05 Dose: 10 mg Senna (Sennosides 8.6 Mg Tablet) 8.6 mg PO BID [facility] Last Admin: 02/07/22 09:06 Dose: 8.6 mg Sodium Chloride (Sodium Chloride 0.65 % Nasal 44 Ml Sprbtl) 1 spray NOSTRIL-B Q1H PRN PRN Reason: Dryness Last Admin: 01/25/22 23:50 Dose: 1 spray Trazodone HCl (Trazodone Hcl 50 Mg Tablet) 50 mg PO BEDTIME PRN PRN Reason: Insomnia Last Admin: 02/06/22 22:59 Dose: 50 mg Allergies Allergies Allergy/AdvReac Type Severity Reaction Status Date / Time albuterol AdvReac Palpitation Verified 05/27/22 20:16 s Assessment & Plan Assessment & Plan (1) Delusional disorder: Status: Acute Code(s): F22 - Delusional disorders Plan 02/03- continue current medications. seen by GI specialist re: severe constipation. 02/04- continue current medications 02/06 worsening of renal fnx, will lower gabapetin, repeat cmp. f/u hospitalist and GI. repeat KUB per GI as pt reports no improvement. I spent minutes with the patient and/or on the patient floor today, greater than?50% of which was spent counseling/coordinating care. Reason for contiued inpatient stay Substantial Risk for: harm to self and inability to function
[2022-02-06] MEDS: Midodrine HCl 10 MG TABLET PO (12:45)
[2022-02-06] MEDS: Gabapentin 600 MG TABLET 300 MG PO ×2 (16:02→21:49)
[2022-02-06] MEDS: Glycerin Pediatric 1 SUPP SOL.PF.APP PR ×2 (17:21→21:50)
--- NOTE | 2022-02-06 17:36 | PC.NURSE ---
Patient may self administer suppository per Jayla Canales APRN.
[2022-02-06 21:45] VITALS: BP 132/64; PULSE 64; RESP 18; TEMP 36.7; O2SAT 97
[2022-02-06] MEDS: OLANZapine 10 MG TABLET 20 MG PO (21:49)
[2022-02-06] MEDS: Melatonin 3 MG TABLET 6 MG PO (22:59)
[2022-02-07 09:01] VITALS: BP 139/74; PULSE 70; RESP 16; TEMP 36.2; O2SAT 96
[2022-02-07] MEDS: Docusate Sodium 100 MG CAPSULE 200 MG PO ×2 (09:04→22:17)
[2022-02-07] MEDS: Propranolol HCL 10 MG TABLET PO ×2 (09:05→22:18)
[2022-02-07] MEDS: diazePAM 5 MG TABLET 10 MG PO ×2 (09:05→14:55)
[2022-02-07] MEDS: Gabapentin 600 MG TABLET 300 MG PO ×3 (09:05→22:17)
[2022-02-07] MEDS: Sennosides 8.6 MG TABLET PO ×2 (09:06→22:18)
[2022-02-07] MEDS: Baclofen 10 MG TABLET PO ×3 (09:07→22:18)
[2022-02-07] MEDS: amLODIPine Besylate 5 MG TABLET PO (09:07)
--- NOTE | 2022-02-07 09:08 | HO.PSYCHPN ---
Subjective Subjective Date of Service: 02/07/22 Reason For Visit: CRISIS EVAL/SI Subjective Notes: Conditional Voluntary Interim History: Pt reports improvement in constipation. She denies abdominal pain. Intermittent muscle pain. She is visible on the unit, comfortable here. she reports improvement in mood but not feeling sure about d/c next Thursday. We discussed again limited therapeutic benefit on the unit and continuing tx outside. She denies SI/HI. Medication Compliance: Yes Side effects from medications: No Review of Systems Review of Systems Severe constipation Yes all other systems are reviewed and are negative Constitutional: Reports as per HPI Mental Status Exam Mental Status Exam Narrative: In today's visit, she is alert, oriented and pleasant. Normal speech. Little eye contact. Affect is appropriate and constricted. Moderate dysphoria/depression present. Feelings of hopelessness. No SI. No signs of psychosis. Cognitively is grossly intact. Judgment and Diagnostics Vital Signs (24Hr): Vital Signs - 24 hr 02/07/22 22:09 Temperature 97.4 F Pulse Rate 65 Respiratory Rate 18 Blood Pressure 181/76 H Pulse Oximetry 100 Oxygen Delivery Method Room Air BMI result Body Mass Index 26.0 Labs Results: 02/07/22 11:37 02/07/22 11:37 Labs: Laboratory Results - last 48 hr 02/06/22 02/07/22 02/07/22 08:26 11:37 11:37 WBC RBC Hgb Hct MCV MCH MCHC RDW Plt Count MPV Immature Gran % (Auto) Neut % (Auto) Lymph % (Auto) [place] % (Auto) Eos % (Auto) Baso % (Auto) Lymph # (Auto) [place] # (Auto) Eos # (Auto) Baso # (Auto) Abs Immat Gran (auto) Absolute Neuts (auto) Absolute Nucleated RBC Nucleated RBC % (auto) Sodium 138 143 Potassium 4.7 4.8 Chloride 103 105 Carbon Dioxide 25 27 Anion Gap 15 16 BUN 28 H 27 H Creatinine 1.21 1.08 Estim Creat Clear Calc 46.8 52.7 Estimated GFR 46 52 Random Glucose 100 135 H Calcium 9.8 D 9.7 Total Bilirubin 0.2 0.2 GGT 165 H AST 25 25 ALT 24 24 Alkaline Phosphatase 168 H 166 H Total Protein 6.4 L 6.8 Albumin 4.1 4.3 Lipase 117 H 02/07/22 11:37 WBC 7.1 RBC 3.83 L Hgb 11.7 L Hct 35.7 L MCV 93.2 MCH 30.5 MCHC 32.8 RDW 12.7 Plt Count 244 MPV 9.2 L Immature Gran % (Auto) 1.4 H Neut % (Auto) 61.2 Lymph % (Auto) 23.4 [place] % (Auto) 5.9 Eos % (Auto) 7.4 H Baso % (Auto) 0.7 Lymph # (Auto) 1.7 [place] # (Auto) 0.4 Eos # (Auto) 0.5 H Baso # (Auto) 0.1 Abs Immat Gran (auto) 0.10 H Absolute Neuts (auto) 4.4 Absolute Nucleated RBC 0.000 Nucleated RBC % (auto) 0.0 Sodium Potassium Chloride Carbon Dioxide Anion Gap BUN Creatinine Estim Creat Clear Calc Estimated GFR Random Glucose Calcium Total Bilirubin GGT AST ALT Alkaline Phosphatase Total Protein Albumin Lipase Imaging Radiology Impressions: ITS Impressions Pelvis X-Ray 01/18/22 19:28 IMPRESSION: 1. No acute fracture or dislocation. Lumbar Spine X-Ray 01/18/22 20:07 IMPRESSION: 1. No subluxation or fracture identified. 2. Mild disc degenerative change at L1-L2 and L5-S1 with lower lumbar facet arthrosis. Cervical Spine CT 01/18/22 20:26 IMPRESSION: No cervical spine fracture or traumatic subluxation. Venous Duplex 01/28/22 15:01 IMPRESSION: 1. No DVT demonstrated in the left lower extremity. 2. Left greater saphenous vein with varicosities and mid to distal segments, which appear patent. KUB X-Ray 02/01/22 08:25 IMPRESSION: Moderate to large colonic stool burden. Venous Duplex 02/04/22 13:10 IMPRESSION: No DVT demonstrated in the left lower extremity. Left greater saphenous vein varicosities similar to previous exam. KUB X-Ray 02/06/22 15:44 IMPRESSION: Mild to moderate stool burden represents interval decrease from the previous study. Medications Medications Current Medications Acetaminophen (Acetaminophen 325 Mg Tablet) 650 mg PO Q6H PRN PRN Reason: Headache/Pain Mild Scale (1-3) Last Admin: 02/02/22 17:43 Dose: 650 mg Al Hydroxide/Mg Hydroxide (Magnesium Hydrox/Alum Hydrox 30 Ml Oral.Susp) 30 ml PO Q6H PRN PRN Reason: Heartburn/Nausea Amlodipine Besylate (Amlodipine Besylate 5 Mg Tablet) 5 mg PO DAILY [facility]; Protocol Last Admin: 02/07/22 09:07 Dose: 5 mg Baclofen (Baclofen 10 Mg Tablet) 10 mg PO TID [facility] Last Admin: 02/07/22 22:18 Dose: 10 mg Docusate Sodium (Docusate Sodium 100 Mg Capsule) 200 mg PO BID [facility] Last Admin: 02/07/22 22:17 Dose: 200 mg Fluticasone/Vilanterol (Fluticasone/Vilanterol 100/25 Blst.W.Dev) 1 puff INHALE RDAILY [facility] Last Admin: 02/07/22 09:10 Dose: Not Given Gabapentin (Gabapentin 600 Mg Tablet) 300 mg PO TID [facility] Last Admin: 02/07/22 22:17 Dose: 300 mg Glycerin (Glycerin Pediatric 1 Supp Felicia.Pf.Octavia) [address] TID [facility] Last Admin: 02/07/22 22:23 Dose: 1 supp Hydroxyzine HCl (Hydroxyzine Hcl 25 Mg Tablet) 25 mg PO Q6H PRN PRN Reason: Anxiety Last Admin: 02/06/22 08:39 Dose: 25 mg Ibuprofen (Ibuprofen 800 Mg Tablet) 800 mg PO Q6H PRN PRN Reason: Pain, Moderate (Pain Scale 4-6 Last Admin: 02/07/22 23:11 Dose: 800 mg Lactulose (Lactulose 20 Gm/30 Ml Solution) 30 gm PO TID PRN PRN Reason: Constipation Last Admin: 02/06/22 08:38 Dose: 30 gm Magnesium Hydroxide (Milk Of Magnesia 30 Ml Oral.Susp) 30 ml PO DAILY PRN PRN Reason: Constipation Melatonin (Melatonin 3 Mg Tablet) 6 mg PO BEDTIME PRN PRN Reason: Insomnia Last Admin: 02/07/22 23:11 Dose: 6 mg Midodrine (Midodrine Hcl 10 Mg Tablet) 10 mg PO TIDWM [facility] Last Admin: 02/07/22 17:26 Dose: Not Given Olanzapine (Olanzapine 10 Mg Tablet) 20 mg PO BEDTIME [facility] Last Admin: 02/07/22 22:17 Dose: 20 mg Polyethylene Glycol (Polyethylene Glycol 3350 17 Gm Powd.Pack) 17 gm PO BID@0700,1500 [facility] Last Admin: 02/07/22 15:27 Dose: 17 gm Propranolol HCl (Propranolol Hcl 10 Mg Tablet) 10 mg PO BID [facility]; Protocol Last Admin: 02/07/22 22:18 Dose: 10 mg Senna (Sennosides 8.6 Mg Tablet) 8.6 mg PO BID [facility] Last Admin: 02/07/22 22:18 Dose: 8.6 mg Sodium Chloride (Sodium Chloride 0.65 % Nasal 44 Ml Sprbtl) 1 spray NOSTRIL-B Q1H PRN PRN Reason: Dryness Last Admin: 01/25/22 23:50 Dose: 1 spray Trazodone HCl (Trazodone Hcl 50 Mg Tablet) 50 mg PO BEDTIME PRN PRN Reason: Insomnia Last Admin: 02/07/22 23:11 Dose: 50 mg Allergies Allergies Allergy/AdvReac Type Severity Reaction Status Date / Time albuterol AdvReac Palpitation Verified 11/01/21 20:16 s Assessment & Plan Assessment & Plan (1) Delusional disorder: Status: Acute Code(s): F22 - Delusional disorders Plan 02/07 continue current medications, plan to d/c 02/11. I spent minutes with the patient and/or on the patient floor today, greater than?50% of which was spent counseling/coordinating care. Reason for contiued inpatient stay Substantial Risk for: harm to self
[2022-02-07] MEDS: Glycerin Pediatric 1 SUPP SOL.PF.APP PR ×3 (10:50→22:23)
[2022-02-07] MEDS: polyethylene glycoL 3350 17 GM POWD.PACK PO ×2 (10:50→15:27)
[2022-02-07 11:43] LABS: MANUAL DIFF FLAG NO
[2022-02-07 11:48] LABS: Basophils Absolute Auto 0.1 X10*3/uL (0.0-0.2); Basophils Percent Auto 0.7 % (0-2); Eosinophils Absolute Auto 0.5 X10*3/uL (0.0-0.4); Eosinophils Percent Auto 7.4 % (0-4); Hematocrit 35.7 % (37.0-47.0); Hemoglobin 11.7 g/dl (12.0-16.0); Imm Gran Pct Auto 1.4 % (0.0-0.4); Lymphocytes Absolute Auto 1.7 X10*3/uL (1.2-4.9); Lymphocytes Percent Auto 23.4 % (20-40); Mean Corpuscular HGB Conc 32.8 g/dl (31.0-35.0); Mean Corpuscular Hemoglobin 30.5 pg (27.0-33.0); Mean Corpuscular Volume 93.2 fL (80.0-98.0); Mean Platelet Volume 9.2 fL (9.4-12.3); Monocytes Absolute Auto 0.4 X10*3/uL (0.1-1.2); Monocytes Percent Auto 5.9 % (2-11); Neutrophils Absolute Auto 4.4 x10*3/uL (2.0-8.3); Neutrophils Percent Auto 61.2 % (45-73); Platelet Count 244 X10*3/uL (160-400); Red Blood Count 3.83 X10*6/uL (4.20-5.50); Red Cell Distribution Width 12.7 % (11.0-16.0); White Blood Count 7.1 X10*3/uL (4.8-10.8)
[2022-02-07 12:02] LABS: Alanine Aminotransferase 24 U/L (0-31); Albumin Level 4.3 g/dL (3.5-5.0); Alkaline Phosphatase 166 U/L (39-117); Anion Gap 16 (12-20); Aspartate Amino Transferase 25 U/L (5-31); Bilirubin Total 0.2 mg/dL (0.0-1.0); Blood Urea Nitrogen 27 mg/dL (9-16); Calcium 9.7 mg/dL (8.4-10.2); Carbon Dioxide 27 mmol/L (22-29); Chloride 105 mmol/L (96-108); Creatinine Clr Calc Pharmacy 52.7; Estimated Glomerular Filt Rate 52; Glucose Random 135 mg/dL (60-115); Potassium 4.8 mmol/L (3.3-5.1); Sodium 143 mmol/L (135-145); Total Protein 6.8 g/dL (6.5-8.0)
[2022-02-07 12:03] LABS: Gamma Glutamyl Transpeptidase 165 U/L (7-33); Lipase 117 U/L (8-78)
--- NOTE | 2022-02-07 14:36 | P.PNGI_ITS ---
Subjective Subjective Date of Service: 02/07/22 Interval History: Pt was seen in the visitor's room. Reports going a couple of times including today shortly before this encounter. Denies any abdominal pain, nausea, vomiting, changes in appetite. Does tell me that she has not been taking MiraLax consistently. Also refusing enemas. She is agreeable to taking MiraLax consistently, but not like to resume enemas. Mainly, because it has to be administered by someone else. Critical Care Time (minutes): 0 Physical Exam Vital Signs: Vital Signs: Last Vital Signs Temp 97.2 F 02/07/22 09:01 Pulse 70 02/07/22 09:01 Resp 16 02/07/22 09:01 BP 139/74 02/07/22 09:01 Pulse Ox 96 02/07/22 09:01 O2 Del Method 02/07/22 09:01 BMI result Body Mass Index 26.0 Gen appear: No acute distress, well nourished Chest: No overt resp distress, CTA CVS: S1/S2, regular Abd: soft, nontender, nondistended, bowel sounds + Neuro: A/Ox3 noted to move all extremities spontaneously Ext: peripheral edema in L leg > R leg Objective Data Labs CBC & Chem 7: 02/07/22 11:37 02/07/22 11:37 Labs: Laboratory Results - last 24 hr 02/07/22 02/07/22 02/07/22 11:37 11:37 11:37 WBC 7.1 RBC 3.83 L Hgb 11.7 L Hct 35.7 L MCV 93.2 MCH 30.5 MCHC 32.8 RDW 12.7 Plt Count 244 MPV 9.2 L Immature Gran % (Auto) 1.4 H Neut % (Auto) 61.2 Lymph % (Auto) 23.4 [place] % (Auto) 5.9 Eos % (Auto) 7.4 H Baso % (Auto) 0.7 Lymph # (Auto) 1.7 [place] # (Auto) 0.4 Eos # (Auto) 0.5 H Baso # (Auto) 0.1 Abs Immat Gran (auto) 0.10 H Absolute Neuts (auto) 4.4 Absolute Nucleated RBC 0.000 Nucleated RBC % (auto) 0.0 Sodium 143 Potassium 4.8 Chloride 105 Carbon Dioxide 27 Anion Gap 16 BUN 27 H Creatinine 1.08 Estim Creat Clear Calc 52.7 Estimated GFR 52 Random Glucose 135 H Calcium 9.7 Total Bilirubin 0.2 GGT 165 H AST 25 ALT 24 Alkaline Phosphatase 166 H Total Protein 6.8 Albumin 4.3 Lipase 117 H Imaging Abdominal x-ray: Attestation: I personally reviewed and interpreted this imaging study as lenore cárdenas: My impression: Stool burden more or less unchanged Microbiology Microbiology Results: Microbiology 01/28/22 Unknown Urine clean catch - Urine royal top Urine Culture - Final Escherichia coli Procedures Date of Service Date of Service: 02/07/22 Progress Note: A&P Assessment and plan (1) Constipation: Status: Acute Assessment and Plan: Continue regimen as previously recommended with following changes: -okay to discontinue enemas as per patient's request -Switch glycerin suppositories to bisacodyl suppository twice a day. (2) Elevated alkaline phosphatase level: Status: Acute Assessment and Plan: This is liver related as reflected by elevated GGT. Difficult to interpret this change, in the setting of inpatient admission with recent medication changes. Recommend rechecking this as outpatient, once on a stable medication regimen, in 1-2 months. Further workup can be pursued if continues to be elevated. (3) Elevated lipase: Status: Acute Assessment and Plan: As this is less than 3 times upper normal limit, and patient without any abdominal pain, would not work this up further with imaging at this time. Thank you for allowing to participate in Lawanda's care. Will sign off. Please do not hesitate to reach out for any questions or concerns. Time Spent With Patient Time: Total time spent is greater than 50% in coordination of care (as documented) at patient's floor/unit and/or counseling patient: Quality Stroke Does the patient have a stroke diagnosis?: No VTE Prior VTE?: No VTE Risk Level:: Medical - low VTE Device Contraindication: Treatment Not Indicated VTE Drug Contraindication: Treatment Not Indicated
[2022-02-07] MEDS: Ibuprofen 800 MG TABLET PO ×2 (14:56→23:11)
[2022-02-07 22:09] VITALS: BP 181/76; PULSE 65; RESP 18; TEMP 36.3; O2SAT 100
[2022-02-07] MEDS: OLANZapine 10 MG TABLET 20 MG PO (22:17)
[2022-02-07] MEDS: Melatonin 3 MG TABLET 6 MG PO (23:11)
[2022-02-07] MEDS: traZODone HCL 50 MG TABLET PO (23:11)
[2022-02-08 09:25] VITALS: BP 136/79; PULSE 58; RESP 18; TEMP 36.3; O2SAT 99
--- NOTE | 2022-02-08 09:28 | P.PNPSI_ITS ---
Subjective Subjective Date of Service: 02/08/22 Reason For Visit: CRISIS EVAL/SI Subjective Notes: Yoder Warning and Conditional Voluntary Interim History: I spoke with pt and she says she is worried about the swelling in her legs, venous duplex showed no clots. Says they have been swollen the last ten, has varicose veins apparent, on visual exam swelling appears minimal, no pitting edema. Reports her gabapentin had been lowered from 600 mg to 300 mg due to poss ibly contributing to her swelling but she has not noticed a difference and asks to go back up as it helps with muscle relaxation. Appetite is good. Says her anxiety is be high. Continues to endorse persecutory delusions, says when she goes into a room she can hear sounds in the sockets and lights, believes this is evidence of her ex bf spying on her, I learned no matter what were not gonna find it, he even said it, you?ll never figure it out. She says she is able to live with this, im just not gonna worry about them [for the sounds]. Says her dad wants her in assisted living or [place] [facility] but its not gonna happen, I'm extremely independent. Does not want med changes, says I think theyre awesome. Mood is good. Mental Status Exam Mental Status Exam Narrative: In today's visit, she is alert, oriented and pleasant.? Normal speech.? Little eye contact.? Affect is appropriate and constricted.? Moderate dysphoria/depression present.? Feelings of hopelessness.? No SI.? No signs of psychosis.? Cognitively is grossly intact.? Judgment and insight intact. Diagnostics Vital Signs (24Hr): Vital Signs - 24 hr 02/07/22 22:09 Temperature 97.4 F Pulse Rate 65 Respiratory Rate 18 Blood Pressure 181/76 H Pulse Oximetry 100 Oxygen Delivery Method Room Air BMI result Body Mass Index 26.0 Labs Results: 02/07/22 11:37 02/07/22 11:37 Labs: Laboratory Results - last 48 hr 02/07/22 02/07/22 02/07/22 11:37 11:37 11:37 WBC 7.1 RBC 3.83 L Hgb 11.7 L Hct 35.7 L MCV 93.2 MCH 30.5 MCHC 32.8 RDW 12.7 Plt Count 244 MPV 9.2 L Immature Gran % (Auto) 1.4 H Neut % (Auto) 61.2 Lymph % (Auto) 23.4 [place] % (Auto) 5.9 Eos % (Auto) 7.4 H Baso % (Auto) 0.7 Lymph # (Auto) 1.7 [place] # (Auto) 0.4 Eos # (Auto) 0.5 H Baso # (Auto) 0.1 Abs Immat Gran (auto) 0.10 H Absolute Neuts (auto) 4.4 Absolute Nucleated RBC 0.000 Nucleated RBC % (auto) 0.0 Sodium 143 Potassium 4.8 Chloride 105 Carbon Dioxide 27 Anion Gap 16 BUN 27 H Creatinine 1.08 Estim Creat Clear Calc 52.7 Estimated GFR 52 Random Glucose 135 H Calcium 9.7 Total Bilirubin 0.2 GGT 165 H AST 25 ALT 24 Alkaline Phosphatase 166 H Total Protein 6.8 Albumin 4.3 Lipase 117 H Imaging Radiology Impressions: ITS Impressions Pelvis X-Ray 01/18/22 19:28 IMPRESSION: 1. No acute fracture or dislocation. Lumbar Spine X-Ray 01/18/22 20:07 IMPRESSION: 1. No subluxation or fracture identified. 2. Mild disc degenerative change at L1-L2 and L5-S1 with lower lumbar facet arthrosis. Cervical Spine CT 01/18/22 20:26 IMPRESSION: No cervical spine fracture or traumatic subluxation. Venous Duplex 01/28/22 15:01 IMPRESSION: 1. No DVT demonstrated in the left lower extremity. 2. Left greater saphenous vein with varicosities and mid to distal segments, which appear patent. KUB X-Ray 02/01/22 08:25 IMPRESSION: Moderate to large colonic stool burden. Venous Duplex 02/04/22 13:10 IMPRESSION: No DVT demonstrated in the left lower extremity. Left greater saphenous vein varicosities similar to previous exam. KUB X-Ray 02/06/22 15:44 IMPRESSION: Mild to moderate stool burden represents interval decrease from the previous study. Medications Medications Current Medications Acetaminophen (Acetaminophen 325 Mg Tablet) 650 mg PO Q6H PRN PRN Reason: Headache/Pain Mild Scale (1-3) Last Admin: 02/02/22 17:43 Dose: 650 mg Al Hydroxide/Mg Hydroxide (Magnesium Hydrox/Alum Hydrox 30 Ml Oral.Susp) 30 ml PO Q6H PRN PRN Reason: Heartburn/Nausea Amlodipine Besylate (Amlodipine Besylate 5 Mg Tablet) 5 mg PO DAILY [facility]; Protocol Last Admin: 02/07/22 09:07 Dose: 5 mg Baclofen (Baclofen 10 Mg Tablet) 10 mg PO TID [facility] Last Admin: 02/07/22 22:18 Dose: 10 mg Docusate Sodium (Docusate Sodium 100 Mg Capsule) 200 mg PO BID [facility] Last Admin: 02/07/22 22:17 Dose: 200 mg Fluticasone/Vilanterol (Fluticasone/Vilanterol 100/25 Blst.W.Dev) 1 puff INHALE RDAILY [facility] Last Admin: 02/07/22 09:10 Dose: Not Given Gabapentin (Gabapentin 600 Mg Tablet) 300 mg PO TID [facility] Last Admin: 02/07/22 22:17 Dose: 300 mg Glycerin (Glycerin Pediatric 1 Supp Felicia.Pf.Octavia) 1 supp [place] TID [facility] Last Admin: 02/07/22 22:23 Dose: 1 supp Hydroxyzine HCl (Hydroxyzine Hcl 25 Mg Tablet) 25 mg PO Q6H PRN PRN Reason: Anxiety Last Admin: 02/06/22 08:39 Dose: 25 mg Ibuprofen (Ibuprofen 800 Mg Tablet) 800 mg PO Q6H PRN PRN Reason: Pain, Moderate (Pain Scale 4-6 Last Admin: 02/07/22 23:11 Dose: 800 mg Lactulose (Lactulose 20 Gm/30 Ml Solution) 30 gm PO TID PRN PRN Reason: Constipation Last Admin: 02/06/22 08:38 Dose: 30 gm Magnesium Hydroxide (Milk Of Magnesia 30 Ml Oral.Susp) 30 ml PO DAILY PRN PRN Reason: Constipation Melatonin (Melatonin 3 Mg Tablet) 6 mg PO BEDTIME PRN PRN Reason: Insomnia Last Admin: 02/07/22 23:11 Dose: 6 mg Midodrine (Midodrine Hcl 10 Mg Tablet) 10 mg PO TIDWM [facility] Last Admin: 02/07/22 17:26 Dose: Not Given Olanzapine (Olanzapine 10 Mg Tablet) 20 mg PO BEDTIME [facility] Last Admin: 02/07/22 22:17 Dose: 20 mg Polyethylene Glycol (Polyethylene Glycol 3350 17 Gm Powd.Pack) 17 gm PO BID@0700,1500 [facility] Last Admin: 02/07/22 15:27 Dose: 17 gm Propranolol HCl (Propranolol Hcl 10 Mg Tablet) 10 mg PO BID [facility]; Protocol Last Admin: 02/07/22 22:18 Dose: 10 mg Senna (Sennosides 8.6 Mg Tablet) 8.6 mg PO BID [facility] Last Admin: 02/07/22 22:18 Dose: 8.6 mg Sodium Chloride (Sodium Chloride 0.65 % Nasal 44 Ml Sprbtl) 1 spray NOSTRIL-B Q1H PRN PRN Reason: Dryness Last Admin: 01/25/22 23:50 Dose: 1 spray Trazodone HCl (Trazodone Hcl 50 Mg Tablet) 50 mg PO BEDTIME PRN PRN Reason: Insomnia Last Admin: 02/07/22 23:11 Dose: 50 mg Allergies Allergies Allergy/AdvReac Type Severity Reaction Status Date / Time albuterol AdvReac Palpitation Verified 11/01/21 20:16 s Assessment & Plan Assessment & Plan (1) Delusional disorder: Status: Acute Code(s): F22 - Delusional disorders Plan 02/07 continue current medications, plan to d/c 02/11. 02/08 increase gabapentin back to 600 mg TID for reported benefit for muscle spasms I spent minutes with the patient and/or on the patient floor today, greater than?50% of which was spent counseling/coordinating care. Patient educated on: diagnosis, medication risk/benefits and therapeutic strategies Reason for contiued inpatient stay Substantial Risk for: med/psych decompensation
[2022-02-08] MEDS: Gabapentin 600 MG TABLET 300 MG PO (09:34)
[2022-02-08] MEDS: Docusate Sodium 100 MG CAPSULE 200 MG PO ×2 (09:34→22:03)
[2022-02-08] MEDS: Sennosides 8.6 MG TABLET PO ×2 (09:35→22:03)
[2022-02-08] MEDS: Baclofen 10 MG TABLET PO ×3 (09:36→22:03)
[2022-02-08] MEDS: amLODIPine Besylate 5 MG TABLET PO (09:38)
[2022-02-08] MEDS: Propranolol HCL 10 MG TABLET PO ×2 (09:38→22:03)
[2022-02-08] MEDS: polyethylene glycoL 3350 17 GM POWD.PACK PO ×2 (09:41→15:00)
[2022-02-08] MEDS: Glycerin Pediatric 1 SUPP SOL.PF.APP PR ×2 (09:44→15:01)
[2022-02-08 12:30] VITALS: BP 162/67; PULSE 60; RESP 18; O2SAT 99
[2022-02-08 14:23] LABS: B Type Natriuretic Peptide 133 pg/mL (<100)
[2022-02-08] MEDS: Gabapentin 400 MG CAPSULE PO (15:01)
[2022-02-08] MEDS: Ibuprofen 800 MG TABLET PO ×2 (15:01→22:06)
[2022-02-08] MEDS: hydrOXYzine HCL 25 MG TABLET PO ×2 (15:01→22:04)
[2022-02-08 17:51] VITALS: BP 140/84; PULSE 60; RESP 18; O2SAT 99
[2022-02-08 19:55] VITALS: BP 133/83; PULSE 88; RESP 16; TEMP 36.3; O2SAT 99
[2022-02-08] MEDS: OLANZapine 10 MG TABLET 20 MG PO (22:03)
[2022-02-08] MEDS: Melatonin 3 MG TABLET 6 MG PO (22:04)
[2022-02-08] MEDS: Gabapentin 600 MG TABLET PO (22:04)
[2022-02-08] MEDS: traZODone HCL 50 MG TABLET PO (22:04)
[2022-02-09 08:55] VITALS: BP 99/56; PULSE 66; RESP 20; TEMP 36.4; O2SAT 97
[2022-02-09] MEDS: polyethylene glycoL 3350 17 GM POWD.PACK PO ×2 (09:01→17:01)
[2022-02-09] MEDS: Docusate Sodium 100 MG CAPSULE 200 MG PO ×2 (09:01→22:11)
[2022-02-09] MEDS: Sennosides 8.6 MG TABLET PO ×2 (09:02→22:11)
[2022-02-09] MEDS: Baclofen 10 MG TABLET PO ×3 (09:03→22:11)
[2022-02-09] MEDS: Gabapentin 600 MG TABLET PO ×3 (09:03→22:11)
[2022-02-09] MEDS: Midodrine HCl 10 MG TABLET PO ×2 (09:03→17:01)
[2022-02-09] MEDS: Glycerin Pediatric 1 SUPP SOL.PF.APP PR ×2 (09:11→14:54)
[2022-02-09] MEDS: diazePAM 5 MG TABLET 10 MG PO ×3 (09:27→22:10)
[2022-02-09 10:32] VITALS: BP 127/61; PULSE 61; RESP 20; O2SAT 97
[2022-02-09] MEDS: amLODIPine Besylate 5 MG TABLET PO (10:35)
[2022-02-09] MEDS: Propranolol HCL 10 MG TABLET PO ×2 (10:35→22:11)
--- NOTE | 2022-02-09 11:00 | P.PNPSI_ITS ---
Subjective Subjective Date of Service: 02/08/22 Reason For Visit: CRISIS EVAL/SI Subjective Notes: Yoder Warning and Conditional Voluntary Healthcare Proxy: No Guardianship: No Medical Problems Affecting Mental Status: No Interim History: I spoke with pt today. Says she is feeling better, had not had valium for a day as this fell off the MAR and was not restarted, says it has made a huge difference. Also appreciates the increase in gabapentin back to 600 mg TID. Says her swelling is worse at night. Wants to be tested for alkaline and things like that but says she will tell me more tomorrow, wants these tests because of what he did and what might be inside me. Feels safe here. Medication Compliance: Yes Side effects from medications: No Attending Groups: Yes Review of Systems Acute medical concerns: No Medical Review of Systems: unchanged Mental Status Exam Mental Status Exam Narrative: In today's visit, she is alert, oriented and pleasant.? Normal speech.? Little eye contact.? Affect is appropriate and constricted.? Moderate dysphoria/depression present.? Feelings of hopelessness.? No SI.? No signs of psychosis.? Cognitively is grossly intact.? Judgment and insight intact. Diagnostics Vital Signs (24Hr): Vital Signs - 24 hr 02/08/22 12:30 02/08/22 17:51 02/08/22 19:55 Temperature 97.3 F Pulse Rate 60 60 88 Respiratory Rate 18 18 16 Blood Pressure 162/67 H 140/84 H 133/83 Pulse Oximetry 99 99 99 Oxygen Delivery Method Room Air Room Air Room Air 02/09/22 08:55 02/09/22 10:32 Temperature 97.6 F Pulse Rate 66 61 Respiratory Rate 20 20 Blood Pressure 99/56 L 127/61 Pulse Oximetry 97 97 Oxygen Delivery Method Room Air Room Air BMI result Body Mass Index 26.0 Labs Results: 02/07/22 11:37 02/07/22 11:37 Labs: Laboratory Results - last 48 hr 02/07/22 02/07/22 02/07/22 11:37 11:37 11:37 WBC 7.1 RBC 3.83 L Hgb 11.7 L Hct 35.7 L MCV 93.2 MCH 30.5 MCHC 32.8 RDW 12.7 Plt Count 244 MPV 9.2 L Immature Gran % (Auto) 1.4 H Neut % (Auto) 61.2 Lymph % (Auto) 23.4 [place] % (Auto) 5.9 Eos % (Auto) 7.4 H Baso % (Auto) 0.7 Lymph # (Auto) 1.7 [place] # (Auto) 0.4 Eos # (Auto) 0.5 H Baso # (Auto) 0.1 Abs Immat Gran (auto) 0.10 H Absolute Neuts (auto) 4.4 Absolute Nucleated RBC 0.000 Nucleated RBC % (auto) 0.0 Sodium 143 Potassium 4.8 Chloride 105 Carbon Dioxide 27 Anion Gap 16 BUN 27 H Creatinine 1.08 Estim Creat Clear Calc 52.7 Estimated GFR 52 Random Glucose 135 H Calcium 9.7 Total Bilirubin 0.2 GGT 165 H AST 25 ALT 24 Alkaline Phosphatase 166 H B-Natriuretic Peptide Total Protein 6.8 Albumin 4.3 Lipase 117 H 02/08/22 13:32 WBC RBC Hgb Hct MCV MCH MCHC RDW Plt Count MPV Immature Gran % (Auto) Neut % (Auto) Lymph % (Auto) [place] % (Auto) Eos % (Auto) Baso % (Auto) Lymph # (Auto) [place] # (Auto) Eos # (Auto) Baso # (Auto) Abs Immat Gran (auto) Absolute Neuts (auto) Absolute Nucleated RBC Nucleated RBC % (auto) Sodium Potassium Chloride Carbon Dioxide Anion Gap BUN Creatinine Estim Creat Clear Calc Estimated GFR Random Glucose Calcium Total Bilirubin GGT AST ALT Alkaline Phosphatase B-Natriuretic Peptide 133 H Total Protein Albumin Lipase Imaging Radiology Impressions: ITS Impressions Pelvis X-Ray 01/18/22 19:28 IMPRESSION: 1. No acute fracture or dislocation. Lumbar Spine X-Ray 01/18/22 20:07 IMPRESSION: 1. No subluxation or fracture identified. 2. Mild disc degenerative change at L1-L2 and L5-S1 with lower lumbar facet arthrosis. Cervical Spine CT 01/18/22 20:26 IMPRESSION: No cervical spine fracture or traumatic subluxation. Venous Duplex 01/28/22 15:01 IMPRESSION: 1. No DVT demonstrated in the left lower extremity. 2. Left greater saphenous vein with varicosities and mid to distal segments, which appear patent. KUB X-Ray 02/01/22 08:25 IMPRESSION: Moderate to large colonic stool burden. Venous Duplex 02/04/22 13:10 IMPRESSION: No DVT demonstrated in the left lower extremity. Left greater saphenous vein varicosities similar to previous exam. KUB X-Ray 02/06/22 15:44 IMPRESSION: Mild to moderate stool burden represents interval decrease from the previous study. Medications Medications Current Medications Acetaminophen (Acetaminophen 325 Mg Tablet) 650 mg PO Q6H PRN PRN Reason: Headache/Pain Mild Scale (1-3) Last Admin: 02/02/22 17:43 Dose: 650 mg Al Hydroxide/Mg Hydroxide (Magnesium Hydrox/Alum Hydrox 30 Ml Oral.Susp) 30 ml PO Q6H PRN PRN Reason: Heartburn/Nausea Amlodipine Besylate (Amlodipine Besylate 5 Mg Tablet) 5 mg PO DAILY [facility]; Protocol Last Admin: 02/09/22 10:35 Dose: 5 mg Baclofen (Baclofen 10 Mg Tablet) 10 mg PO TID [facility] Last Admin: 02/09/22 09:03 Dose: 10 mg Diazepam (Diazepam 5 Mg Tablet) 10 mg PO TID [facility] Diazepam (Diazepam 5 Mg Tablet) 5 mg PO DAILY PRN PRN Reason: anxiety Docusate Sodium (Docusate Sodium 100 Mg Capsule) 200 mg PO BID [facility] Last Admin: 02/09/22 09:01 Dose: 200 mg Fluticasone/Vilanterol (Fluticasone/Vilanterol 100/25 Blst.W.Dev) 1 puff INHALE RDAILY [facility] Last Admin: 02/09/22 09:31 Dose: Not Given Gabapentin (Gabapentin 600 Mg Tablet) 600 mg PO TID [facility] Last Admin: 02/09/22 09:03 Dose: 600 mg Glycerin (Glycerin Pediatric 1 Supp Felicia.Pf.Octavia) 1 supp [place] TID [facility] Last Admin: 02/09/22 09:11 Dose: 1 supp Hydroxyzine HCl (Hydroxyzine Hcl 25 Mg Tablet) 25 mg PO Q6H PRN PRN Reason: Anxiety Last Admin: 02/08/22 22:04 Dose: 25 mg Ibuprofen (Ibuprofen 800 Mg Tablet) 800 mg PO Q6H PRN PRN Reason: Pain, Moderate (Pain Scale 4-6 Last Admin: 02/08/22 22:06 Dose: 800 mg Lactulose (Lactulose 20 Gm/30 Ml Solution) 30 gm PO TID PRN PRN Reason: Constipation Last Admin: 02/06/22 08:38 Dose: 30 gm Magnesium Hydroxide (Milk Of Magnesia 30 Ml Oral.Susp) 30 ml PO DAILY PRN PRN Reason: Constipation Melatonin (Melatonin 3 Mg Tablet) 6 mg PO BEDTIME PRN PRN Reason: Insomnia Last Admin: 02/08/22 22:04 Dose: 6 mg Midodrine (Midodrine Hcl 10 Mg Tablet) 10 mg PO TIDWM [facility] Last Admin: 02/09/22 09:03 Dose: 10 mg Olanzapine (Olanzapine 10 Mg Tablet) 20 mg PO BEDTIME [facility] Last Admin: 02/08/22 22:03 Dose: 20 mg Polyethylene Glycol (Polyethylene Glycol 3350 17 Gm Powd.Pack) 17 gm PO BID@0700,1500 [facility] Last Admin: 02/09/22 09:01 Dose: 17 gm Propranolol HCl (Propranolol Hcl 10 Mg Tablet) 10 mg PO BID [facility]; Protocol Last Admin: 02/09/22 10:35 Dose: 10 mg Senna (Sennosides 8.6 Mg Tablet) 8.6 mg PO BID [facility] Last Admin: 02/09/22 09:02 Dose: 8.6 mg Sodium Chloride (Sodium Chloride 0.65 % Nasal 44 Ml Sprbtl) 1 spray NOSTRIL-B Q1H PRN PRN Reason: Dryness Last Admin: 01/25/22 23:50 Dose: 1 spray Trazodone HCl (Trazodone Hcl 50 Mg Tablet) 50 mg PO BEDTIME PRN PRN Reason: Insomnia Last Admin: 02/08/22 22:04 Dose: 50 mg Allergies Allergies Allergy/AdvReac Type Severity Reaction Status Date / Time albuterol AdvReac Palpitation Verified 11/01/21 20:16 s Assessment & Plan Assessment & Plan (1) Delusional disorder: Status: Acute Code(s): F22 - Delusional disorders Plan 02/07 continue current medications, plan to d/c 02/11. 02/08 increase gabapentin back to 600 mg TID for reported benefit for muscle spasms 02/09 No med changes I spent minutes with the patient and/or on the patient floor today, greater than?50% of which was spent counseling/coordinating care. Patient educated on: therapeutic strategies Reason for contiued inpatient stay Substantial Risk for: med/psych decompensation
[2022-02-09 12:25] VITALS: BP 145/93; PULSE 61; RESP 20; O2SAT 100
[2022-02-09 17:00] VITALS: BP 125/79; PULSE 69; RESP 18; O2SAT 97
[2022-02-09] MEDS: diazePAM 5 MG TABLET PO (20:26)
[2022-02-09] MEDS: OLANZapine 10 MG TABLET 20 MG PO (22:10)
[2022-02-09 22:55] VITALS: BP 144/83; PULSE 65; RESP 18; TEMP 36.6; O2SAT 97
[2022-02-09] MEDS: Ibuprofen 800 MG TABLET PO (23:02)
[2022-02-09] MEDS: traZODone HCL 50 MG TABLET PO (23:02)
[2022-02-09] MEDS: Melatonin 3 MG TABLET 6 MG PO (23:02)
[2022-02-09] MEDS: hydrOXYzine HCL 25 MG TABLET PO (23:03)
[2022-02-10 10:02] VITALS: BP 119/61; PULSE 64; RESP 16; TEMP 36.3; O2SAT 100
[2022-02-10] MEDS: Midodrine HCl 10 MG TABLET PO (10:03)
[2022-02-10] MEDS: Docusate Sodium 100 MG CAPSULE 200 MG PO ×2 (10:04→22:01)
[2022-02-10] MEDS: Sennosides 8.6 MG TABLET PO ×2 (10:04→22:02)
[2022-02-10] MEDS: Propranolol HCL 10 MG TABLET PO ×2 (10:05→22:02)
[2022-02-10] MEDS: diazePAM 5 MG TABLET 10 MG PO ×3 (10:05→21:58)
[2022-02-10] MEDS: amLODIPine Besylate 5 MG TABLET PO (10:05)
[2022-02-10] MEDS: Gabapentin 600 MG TABLET PO ×3 (10:05→21:59)
[2022-02-10] MEDS: Baclofen 10 MG TABLET PO ×3 (10:06→22:03)
[2022-02-10] MEDS: polyethylene glycoL 3350 17 GM POWD.PACK PO (10:06)
[2022-02-10] MEDS: Ibuprofen 800 MG TABLET PO ×2 (11:10→23:00)
[2022-02-10] MEDS: diazePAM 5 MG TABLET PO (20:37)
[2022-02-10] MEDS: Acetaminophen 325 MG TABLET 650 MG PO (20:37)
[2022-02-10 21:50] VITALS: BP 145/87; PULSE 71; RESP 16; TEMP 36.6; O2SAT 100
[2022-02-10] MEDS: OLANZapine 10 MG TABLET 20 MG PO (21:59)
[2022-02-10] MEDS: traZODone HCL 50 MG TABLET PO (23:00)
[2022-02-10] MEDS: Melatonin 3 MG TABLET 6 MG PO (23:00)
[2022-02-10] MEDS: hydrOXYzine HCL 25 MG TABLET PO (23:00)
--- NOTE | 2022-02-10 23:56 | P.PNPSI_ITS ---
Subjective Subjective Date of Service: 02/10/22 Reason For Visit: CRISIS EVAL/SI Interim History: I attempted to interview pt however she is in with SW, when I returned to find her again, pt is asleep, which is deemed therapeutic. Per staff, no behavioral or mood concerns, pt is med adherent. No safety concerns. Medication Compliance: Yes Side effects from medications: No Attending Groups: Yes Review of Systems Acute medical concerns: No Medical Review of Systems: unchanged Mental Status Exam Mental Status Exam Narrative: Pt is asleep, unable to assess. Diagnostics Vital Signs (24Hr): Vital Signs - 24 hr 02/10/22 10:02 02/10/22 21:50 Temperature 97.4 F 97.8 F Pulse Rate 64 71 Respiratory Rate 16 16 Blood Pressure 119/61 145/87 H Pulse Oximetry 100 100 Oxygen Delivery Method Room Air Room Air BMI result Body Mass Index 26.0 Labs Results: 02/07/22 11:37 02/07/22 11:37 Imaging Radiology Impressions: ITS Impressions Pelvis X-Ray 01/18/22 19:28 IMPRESSION: 1. No acute fracture or dislocation. Lumbar Spine X-Ray 01/18/22 20:07 IMPRESSION: 1. No subluxation or fracture identified. 2. Mild disc degenerative change at L1-L2 and L5-S1 with lower lumbar facet arthrosis. Cervical Spine CT 01/18/22 20:26 IMPRESSION: No cervical spine fracture or traumatic subluxation. Venous Duplex 01/28/22 15:01 IMPRESSION: 1. No DVT demonstrated in the left lower extremity. 2. Left greater saphenous vein with varicosities and mid to distal segments, which appear patent. KUB X-Ray 02/01/22 08:25 IMPRESSION: Moderate to large colonic stool burden. Venous Duplex 02/04/22 13:10 IMPRESSION: No DVT demonstrated in the left lower extremity. Left greater saphenous vein varicosities similar to previous exam. KUB X-Ray 02/06/22 15:44 IMPRESSION: Mild to moderate stool burden represents interval decrease from the previous study. Medications Medications Current Medications Acetaminophen (Acetaminophen 325 Mg Tablet) 650 mg PO Q6H PRN PRN Reason: Headache/Pain Mild Scale (1-3) Last Admin: 02/10/22 20:37 Dose: 650 mg Al Hydroxide/Mg Hydroxide (Magnesium Hydrox/Alum Hydrox 30 Ml Oral.Susp) 30 ml PO Q6H PRN PRN Reason: Heartburn/Nausea Amlodipine Besylate (Amlodipine Besylate 5 Mg Tablet) 5 mg PO DAILY [facility]; Protocol Last Admin: 02/10/22 10:05 Dose: 5 mg Baclofen (Baclofen 10 Mg Tablet) 10 mg PO TID [facility] Last Admin: 02/10/22 22:03 Dose: 10 mg Diazepam (Diazepam 5 Mg Tablet) 10 mg PO TID [facility] Last Admin: 02/10/22 21:58 Dose: 10 mg Diazepam (Diazepam 5 Mg Tablet) 5 mg PO DAILY PRN PRN Reason: anxiety Last Admin: 02/10/22 20:37 Dose: 5 mg Docusate Sodium (Docusate Sodium 100 Mg Capsule) 200 mg PO BID [facility] Last Admin: 02/10/22 22:01 Dose: 200 mg Fluticasone/Vilanterol (Fluticasone/Vilanterol 100/25 Blst.W.Dev) 1 puff INHALE RDAILY [facility] Last Admin: 02/10/22 10:07 Dose: Not Given Gabapentin (Gabapentin 600 Mg Tablet) 600 mg PO TID [facility] Last Admin: 02/10/22 21:59 Dose: 600 mg Glycerin (Glycerin Pediatric 1 Supp Felicia.Pf.Octavia) 1 supp [place] TID [facility] Last Admin: 02/10/22 22:01 Dose: Not Given Hydroxyzine HCl (Hydroxyzine Hcl 25 Mg Tablet) 25 mg PO Q6H PRN PRN Reason: Anxiety Last Admin: 02/10/22 23:00 Dose: 25 mg Ibuprofen (Ibuprofen 800 Mg Tablet) 800 mg PO Q6H PRN PRN Reason: Pain, Moderate (Pain Scale 4-6 Last Admin: 02/10/22 23:00 Dose: 800 mg Lactulose (Lactulose 20 Gm/30 Ml Solution) 30 gm PO TID PRN PRN Reason: Constipation Last Admin: 02/06/22 08:38 Dose: 30 gm Magnesium Hydroxide (Milk Of Magnesia 30 Ml Oral.Susp) 30 ml PO DAILY PRN PRN Reason: Constipation Melatonin (Melatonin 3 Mg Tablet) 6 mg PO BEDTIME PRN PRN Reason: Insomnia Last Admin: 02/10/22 23:00 Dose: 6 mg Midodrine (Midodrine Hcl 10 Mg Tablet) 10 mg PO TIDWM [facility] Last Admin: 02/10/22 18:09 Dose: Not Given Olanzapine (Olanzapine 10 Mg Tablet) 20 mg PO BEDTIME [facility] Last Admin: 02/10/22 21:59 Dose: 20 mg Polyethylene Glycol (Polyethylene Glycol 3350 17 Gm Powd.Pack) 17 gm PO BID@0700,1500 [facility] Last Admin: 02/10/22 18:07 Dose: Not Given Propranolol HCl (Propranolol Hcl 10 Mg Tablet) 10 mg PO BID [facility]; Protocol Last Admin: 02/10/22 22:02 Dose: 10 mg Senna (Sennosides 8.6 Mg Tablet) 8.6 mg PO BID [facility] Last Admin: 02/10/22 22:02 Dose: 8.6 mg Sodium Chloride (Sodium Chloride 0.65 % Nasal 44 Ml Sprbtl) 1 spray NOSTRIL-B Q1H PRN PRN Reason: Dryness Last Admin: 01/25/22 23:50 Dose: 1 spray Trazodone HCl (Trazodone Hcl 50 Mg Tablet) 50 mg PO BEDTIME PRN PRN Reason: Insomnia Last Admin: 02/10/22 23:00 Dose: 50 mg Allergies Allergies Allergy/AdvReac Type Severity Reaction Status Date / Time albuterol AdvReac Palpitation Verified 11/01/21 20:16 s Assessment & Plan Assessment & Plan (1) Delusional disorder: Status: Acute Code(s): F22 - Delusional disorders Plan 02/07 continue current medications, plan to d/c 02/11. 02/08 increase gabapentin back to 600 mg TID for reported benefit for muscle spasms 02/09 No med changes 02/10 No med changes I spent minutes with the patient and/or on the patient floor today, greater than?50% of which was spent counseling/coordinating care. Patient educated on: other Reason for contiued inpatient stay Substantial Risk for: rapid decompensation and med/psych decompensation
[2022-02-11 08:50] VITALS: BP 138/66; PULSE 62; RESP 16; TEMP 36.3; O2SAT 99
[2022-02-11] MEDS: diazePAM 5 MG TABLET 10 MG PO (08:59)
[2022-02-11] MEDS: Gabapentin 600 MG TABLET PO (08:59)
[2022-02-11] MEDS: Docusate Sodium 100 MG CAPSULE 200 MG PO (09:00)
[2022-02-11] MEDS: Sennosides 8.6 MG TABLET PO (09:00)
[2022-02-11] MEDS: Propranolol HCL 10 MG TABLET PO (09:00)
[2022-02-11] MEDS: Baclofen 10 MG TABLET PO (09:01)
[2022-02-11] MEDS: amLODIPine Besylate 5 MG TABLET PO (09:01)
[2022-02-11] MEDS: Ibuprofen 800 MG TABLET PO (09:01)
[2022-02-11] MEDS: polyethylene glycoL 3350 17 GM POWD.PACK PO (09:01)
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
[2022-02-12 11:42] LABS: CRP High Sensitivity 2.6 mg/L
== END 2022-02-11 13:00 | disposition home health service (06) | DRG 885 ==
LOC: HO.ED 01-21 00:36 → HO.PADLT16 01-21 12:25
PROVIDERS: Emergency Medicine; Physician Assistant; Registered Nurse; Admitting Provider Social Worker; Emergency Provider Student in an Organized Health Care Education/Training Program; Visit Provider Social Worker
DX: F22 Delusional disorders (principal); R45.851 Suicidal ideations; G25.82 Stiff-man syndrome; J44.9 Chronic obstructive pulmonary disease, unspecified; K59.00 Constipation, unspecified; M32.9 Systemic lupus erythematosus, unspecified; F17.210 Nicotine dependence, cigarettes, uncomplicated; Z71.6 Tobacco abuse counseling; Z20.822 Contact with and (suspected) exposure to COVID-19; Z88.8 Allergy status to other drugs, medicaments and biological substances; Z79.51 Long term (current) use of inhaled steroids; Z79.899 Other long term (current) drug therapy
CPT/HCPCS: 36415; 72100; 72125; 72170; 74018; 80048; 80053; 80061; 80076; 80178; 81001; 82947; 82977; 83036; 83690; 83735; 83880; 84443; 85025; 86141; 87086; 87088; 87186; 87635; 93005; 93971; 99285

== ENCOUNTER 2022-02-14 11:33 | Emergency (ER) | payer MEDICARE, MEDICAID, SELFPAY ==
[2022-02-14 11:56] VITALS: BP 137/74; BP 141/93; PULSE 105; PULSE 114; RESP 18; TEMP 37.1; O2SAT 96; O2SAT 97; BMI 21.4
--- NOTE | 2022-02-14 12:59 | MHC.CARE ---
Plan Jayla Hines NP to meet with Pt for plan of care recommendations.
--- NOTE | 2022-02-14 13:04 | ED.PSYCH ---
HPI - Psych General Chief Complaint: Psychiatric Symptoms Stated Complaint: SI w/ plan VSS Time Seen by Provider: 02/14/22 12:43 Source: patient and EMS Mode of arrival: EMS Limitations: no limitations History of Present Illness HPI Narrative: 56-year-old female with a history of stiff person syndrome, lupus, orthostatic hypotension, delusional disorder who presents with reports of feeling paranoid. Patient tells me she is afraid of all electronics and states dont come to close with your stethoscope. She feels like she was discharged to soon from inpatient psych. Of note patient was released on February 11. Patient reports last night she smoked a bowl. No other substance use. No physical complaints Related Data Previous Rx's Medication Instructions Recorded fluticasone 250 mcg-salmeterol 50 1 inh PO BID #60 ea 01/09/22 mcg/dose blistr powdr for inhalation (Advair Diskus) melatonin 3 mg tablet 6 mg PO BEDTIME PRN Insomnia #60 01/09/22 tabs sodium chloride 0.65 % nasal spray 1 spray intranasal Q1H PRN Dryness 01/09/22 aerosol (Deep Sea Nasal) #44 mL amlodipine 5 mg tablet 5 mg PO DAILY #30 tabs 02/11/22 baclofen 10 mg tablet 10 mg PO TID #90 tabs 02/11/22 diazepam 10 mg tablet 10 mg PO TID #90 tabs 02/11/22 diazepam 5 mg tablet 5 mg PO DAILY PRN anxiety #30 tabs 02/11/22 docusate sodium 100 mg capsule 200 mg PO BID #120 caps 02/11/22 gabapentin 600 mg tablet 600 mg PO TID #90 tabs 02/11/22 glycerin (laxative) 2.8 gram/2.7 2.7 ml MT TID #96 mL 02/11/22 mL rectal solution (Pedia-Lax) midodrine 10 mg tablet 10 mg PO TIDWM #90 tabs 02/11/22 olanzapine 10 mg tablet 20 mg PO BEDTIME #60 tabs 02/11/22 polyethylene glycol 3350 17 gram 17 g PO BID@0700,1500 #30 ea 02/11/22 oral powder packet propranolol 10 mg tablet 10 mg PO BID #60 tabs 02/11/22 sennosides 8.6 mg tablet (Senna 8.6 mg PO BID #60 tabs 02/11/22 Lax) trazodone 50 mg tablet 50 mg PO BEDTIME PRN Insomnia #30 02/11/22 tabs Allergies Allergy/AdvReac Type Severity Reaction Status Date / Time albuterol AdvReac Palpitation Verified 11/01/21 20:16 s Review of Systems Review of Systems: Yes all other systems are reviewed and are negative Constitutional: Constitutional: Reports no additional constitutional complaints, Denies body ache(s), Denies chills, Denies fever(s), Denies headache(s) and Denies weakness Eyes: Eyes: Reports no additional eye complaints and Denies change in vision ENT: Reports system reviewed and no additional complaints, except as documented, Denies dizziness, Denies headache(s), Denies nasal congestion, Denies nasal discharge and Denies neck pain Cardiovascular: Cardiovascular: Reports no additional cardiovascular complaints, Denies chest pain, Denies leg edema and Denies dyspnea Respiratory: Respiratory: Reports no additional respiratory complaints, Denies cough and Denies dyspnea Gastrointestinal: Gastrointestinal: Reports no additional gastrointestinal complaints, Denies abdominal pain, Denies diarrhea, Denies nausea and Denies vomiting Genitourinary: Genitourinary: Reports no additional female genitourinary complaints and Denies urinary incontinence Musculoskeletal: Musculoskeletal: Reports no additional musculoskeletal complaints, Denies back pain, Denies arthralgias, Denies joint swelling, Denies neck pain, Denies numbness and Denies tingling Integumentary/Breasts: Skin/Breast: Reports system reviewed and no additional complaints, except as docu and Denies rash Neurologic: Reports system reviewed and no additional complaints, except as documented, Denies Abnormal speech present, Denies dizziness, Denies headache(s), Denies numbness, Denies tingling and Denies weakness Psychiatric: Psychiatric: Reports anxiety, Reports paranoia, Denies homicidal ideation and Denies suicidal ideation [facility] Past Medical History Attestation statement: The following information was validated with the patient. Source: old records reviewed and nursing notes reviewed Medical History Bowel perforation COPD (chronic obstructive pulmonary disease) Delusional disorder Depression Hypertension Lupus Pneumonia Stiff-man syndrome Surgical History History of cholecystectomy History of mandibular surgery Family History Family History Paternal Grandmother TB (pulmonary tuberculosis) Father FH: HTN (hypertension) Social History Social History Household Members: Family Household Members Other:: son, gf, grandchildren Housing: House Do you presently have visiting nurse or other home services: No (By history) Alcohol intake: never Patient Tobacco Use Status: Current everyday Tobacco user Tobacco use type: Cigarette Cigarette Packs Per Day: 5 Years Smoked: 42 e-Cigarette/Vaping Use: Currently Using Second Hand Smoke Exposure: No Substance Use Type: Marijuana, Other and Caffiene Advance Directives: No Advance Directives Information Provided: No service: No Sexual orientation: Straight/Heterosexual Physical Exam Vital Signs: Vital Signs: Last Vital Signs Temp 98.7 F 02/14/22 11:56 Pulse 105 H 02/14/22 11:56 Resp 18 02/14/22 11:56 BP 141/93 H 02/14/22 11:56 Pulse Ox 96 02/14/22 11:56 O2 Del Method 02/14/22 11:56 BMI result Body Mass Index 21.4 Const: General: cooperative, healthy appearing, comfortable, no acute distress and anxious Orientation/consciousness: patient oriented x3 Limitations: no limitations HEENT: Head: Yes normal to inspection Ears: hearing grossly normal bilaterally General nose exam: Normal external nose present Face and sinus: Yes normal facial exam Mouth: Normal oral and palatal mucosa present Throat: Yes posterior oropharynx normal Eyes: General: appearance normal, both eyes and all related structures Pupils: Equal, round and reactive pupils present Neck: Neck: Yes normal visual inspection Chest: Chest palpation & inspection: normal inspection of the chest Resp: Effort & Inspection: normal respiratory effort Auscultation: clear to auscultation bilaterally Cardio: Rate: regular rate Rhythm: regular rhythm Peripheral pulses: Peripheral pulses 2+ throughout GI: Inspection: Yes normal to inspection Palpation (GI): Soft to palpation and nontender Auscultation: normal bowel sounds Back/Spine/Pelvis: Thoracic/Lumbar Spine: thoracic and lumbar spine normal to inspection Skin: General skin exam: no rashes or lesions noted Neuro: General: patient oriented x3, no focal motor deficits and normal sensation to monofilament Cranial nerves: Yes CN's II-XII intact bilaterally and Yes Equal, round and reactive pupils present Cognition (Neuro): normal cognition Speech: No Abnormal speech present Gait exam (Neuro): Normal gait present Motor exam (neuro): 5/5 motor strength present throughout Extrem: General: Yes normal to inspection Course Course Course Narrative: Patient seen by Yessy RODRIGUEZ from psych. Plan for discharge home with outpatient follow-up with therapist. Patient and family are agreeable plan of care. No suicidal thoughts. MDM - Psych MDM Narrative Medical decision making narrative: 56-year-old female here with reports of increasing paranoia, delusions, anxiety with recent discharge from inpatient psych. No concern for acute ingestion or trauma. Patient had labs 3 days ago so no need to repeat. Will obtain COVID screen, drug screen, crisis evaluation Medical Records Attestation: I reviewed the patient's medical records. Lab Data Attestation: I reviewed the patient's lab results. Labs: Lab Results 02/14/22 Range/Units 13:12 COVID-19 (DAVID) Negative (Negative) COVID-19 Clin Com See Note Discharge Plan Discharge Clinical Impression: Delusional disorder Patient Disposition: Home, Self-Care Instructions: Psychotic Disorder (ED) Additional Instructions: Follow up with your primary care provider. Return to the emergency department immediately if your symptoms worsen or if you develop any dizziness, shortness of breath, difficulty breathing, chest pain, blurry vision, loss of vision, nausea, vomiting, abdominal pain, fever, chills, back pain, or any other complaints. Prescriptions: No Action Deep Sea Nasal 0.65 % Aerosol,[place] 1 spray intranasal Q1H PRN (Reason: Dryness) Qty: 44 0RF melatonin 3 mg Tablet 6 mg PO BEDTIME PRN (Reason: Insomnia) Qty: 60 0RF fluticasone propion-salmeterol [Advair Diskus] 250-50 mcg/dose blister with device 1 inh PO BID Qty: 60 0RF baclofen 10 mg Tablet 10 mg PO TID Qty: 90 0RF midodrine 10 mg Tablet 10 mg PO TIDWM Qty: 90 0RF amlodipine 5 mg Tablet 5 mg PO DAILY Qty: 30 0RF Protocol: Hold for SBP< HOLD for SBP < : 90 propranolol 10 mg Tablet 10 mg PO BID Qty: 60 0RF Protocol: Hold for SBP/HR < HOLD for SBP < : 90 HOLD for HR < : 50 diazepam 10 mg tablet 10 mg PO TID Qty: 90 0RF diazepam 5 mg tablet 5 mg PO DAILY PRN (Reason: anxiety) Qty: 30 0RF gabapentin 600 mg Tablet 600 mg PO TID Qty: 90 0RF olanzapine 10 mg Tablet 20 mg PO BEDTIME Qty: 60 0RF sennosides [Senna Lax] 8.6 mg Tablet 8.6 mg PO BID Qty: 60 0RF trazodone 50 mg Tablet 50 mg PO BEDTIME PRN (Reason: Insomnia) Qty: 30 0RF polyethylene glycol 3350 17 gram Powder In Packet 17 g PO BID@0700,1500 Qty: 30 0RF docusate sodium 100 mg Capsule 200 mg PO BID Qty: 120 0RF Pedia-Lax 2.8 gram/2.7 mL Solution 2.7 ml MT TID Qty: 96 0RF Print Language: Yoruba
[2022-02-14 13:36] LABS: COVID-19 Test Negative (Negative); IDNOW Serial# 9DB6401D
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
[2022-02-14] MEDS: OLANZapine 10 MG TABLET PO ×2 (15:58→18:09)
[2022-02-14] MEDS: diazePAM 5 MG TABLET 10 MG PO ×2 (15:58→18:09)
--- NOTE | 2022-02-14 16:06 | PC.NURSE ---
pt tremulous, anxious. reports fear of technology that started while she was last inpatient but she didn't say anything because she didn't want to look like a loser and wanted to help other people . she reports ringing in her ears and described a burning sensation that runs down her legs. pt stated she has a fear of technology as they are trying to scan her to get information . pt described fear and anxiety that they are trying to find out what she is doing and where she is. reports in the past several days she has been wrapping clothes around her neck and head to guard her from access being gained to obtain information . pt medicated with Valium and zyprexa PO per mar
== END 2022-02-14 18:55 | disposition home or self-care (01) ==
PROVIDERS: Nurse Practitioner Family; Emergency Provider Student in an Organized Health Care Education/Training Program
DX: F22 Delusional disorders (principal); F17.210 Nicotine dependence, cigarettes, uncomplicated; Z71.6 Tobacco abuse counseling; Z20.822 Contact with and (suspected) exposure to COVID-19; Z79.899 Other long term (current) drug therapy
CPT/HCPCS: 87635; 99284

== ENCOUNTER 2022-03-27 18:32 | Emergency (ER) | payer MEDICARE, MEDICAID, SELFPAY ==
--- NOTE | ~2022-03-27 | US_ITS ---
EXAMINATION: US VENOUS ULTRASOUND WITH DOPPLER LOWER EXTREMITY, LEFT CLINICAL INFORMATION: Swollen calf COMPARISON: None TECHNIQUE: Ultrasound of the deep veins is performed from the hip to the calf with compression sonography and color and pulse Doppler assessment. Spectral analysis with color-flow imaging is performed. FINDINGS: There is normal venous compression and respiratory variation and augmented flow. The visualized common femoral vein, superficial femoral vein, profunda femoral vein, popliteal vein, and the trifurcation region shows no evidence of deep venous thrombosis. There is no significant popliteal fossa cyst. There are partially thrombosed subcutaneous varicosities of the mid/distal calf. If the patient's symptoms persist, followup ultrasound in 5 days 7 days might be of value to exclude proximal propagation from a non-visualized calf vein. US/US venous duplex LE LT IMPRESSION: No DVT demonstrated in the left lower extremity. Superficial thrombophlebitis of prominent varicose veins of the mid/distal left calf.
[2022-03-27 18:43] VITALS: BP 139/61; PULSE 66; O2SAT 100
--- NOTE | 2022-03-27 18:56 | ED_ITS ---
HPI - Extremity Injury (Lower) General Chief Complaint: Extremity Injury, Lower Stated Complaint: left leg pain Time Seen by Provider: 03/27/22 18:45 Source: patient Mode of arrival: ambulatory History of Present Illness HPI Narrative: 56-year-old female with a past medical history of COPD, delusional disorder, depression, HTN, lupus, stiff man syndrome, BIBA c/o left lower leg pain since this morning. Denies known injury, trauma, fall. Denies taking anticoagulation. Denies SOB, CP, recent travel MD complaint: leg injury Onset (ago): hour(s) Related Data Previous Rx's Medication Instructions Recorded diazepam 5 mg tablet 5 mg PO DAILY PRN anxiety #30 tabs 02/11/22 propranolol 10 mg tablet 10 mg PO BID #60 tabs 02/11/22 amlodipine 5 mg tablet 5 mg PO DAILY #30 tabs 03/12/22 baclofen 10 mg tablet 10 mg PO TID #90 tabs 03/12/22 diazepam 10 mg tablet 10 mg PO TID #90 tabs 03/12/22 docusate sodium 100 mg capsule 200 mg PO BID #120 caps 03/12/22 fluticasone 250 mcg-salmeterol 50 1 inh PO BID #60 ea 03/12/22 mcg/dose blistr powdr for inhalation (Advair Diskus) glycerin (laxative) 2.8 gram/2.7 2.7 ml SD TID #96 mL 03/12/22 mL rectal solution (Pedia-Lax) melatonin 3 mg tablet 6 mg PO BEDTIME PRN Insomnia #60 03/12/22 tabs midodrine 10 mg tablet 10 mg PO TIDWM #90 tabs 03/12/22 olanzapine 10 mg tablet 20 mg PO BEDTIME #60 tabs 03/12/22 polyethylene glycol 3350 17 gram 17 g PO BID@0700,1500 #30 ea 03/12/22 oral powder packet sennosides 8.6 mg tablet (Senna 8.6 mg PO BID #60 tabs 03/12/22 Lax) sodium chloride 0.65 % nasal spray 1 spray intranasal Q1H PRN Dryness 03/12/22 aerosol (Deep Sea Nasal) #44 mL trazodone 50 mg tablet 50 mg PO BEDTIME PRN Insomnia #30 03/12/22 tabs cephalexin 500 mg capsule 500 mg PO QID 7 days #28 caps 03/27/22 Allergies Allergy/AdvReac Type Severity Reaction Status Date / Time albuterol AdvReac Palpitation Verified 11/01/21 20:16 s Review of Systems Review of Systems: Constitutional: No Fever, No Chills ENT/Mouth: No Ear Pain, No Nasal Congestion, No Sinus Pain, No Hoarseness, No sore throat, No Rhinorrhea, No Swallowing Difficulty Cardiovascular: No Chest Pain, No SOB Respiratory: No Cough, No Sputum, No Wheezing Gastrointestinal: No Nausea, No Vomiting, No Diarrhea, No Constipation, No Abdominal pain Genitourinary: No Dysuria, No Urinary Frequency, No Hematuria, No Flank Pain Musculoskeletal: No joint pain, No Myalgias, No Joint Swelling Skin: + Skin Lesions, No rash Neuro: No Weakness, No Numbness, No Paresthesias Yes all other systems are reviewed and are negative Constitutional: Constitutional: Reports as per [facility] Past Medical History Attestation statement: The following information was validated with the patient. Medical History Bowel perforation COPD (chronic obstructive pulmonary disease) Delusional disorder Depression Hypertension Lupus Pneumonia Stiff-man syndrome Surgical History History of cholecystectomy History of mandibular surgery Family History Family History Paternal Grandmother TB (pulmonary tuberculosis) Father FH: HTN (hypertension) Social History Social History Household Members: Family Household Members Other:: son, gf, grandchildren Housing: House Do you presently have visiting nurse or other home services: No (By history) Alcohol intake: never Patient Tobacco Use Status: Current everyday Tobacco user Tobacco use type: Cigarette Cigarette Packs Per Day: 5 Years Smoked: 42 e-Cigarette/Vaping Use: Currently Using Second Hand Smoke Exposure: No Substance Use Type: Marijuana, Other and Caffiene Advance Directives: No Advance Directives Information Provided: No service: No Sexual orientation: Straight/Heterosexual Physical Exam Vital Signs: Vital Signs: Last Vital Signs Temp 98.0 F 03/27/22 20:01 Pulse 90 03/27/22 20:01 Resp 16 03/27/22 20:01 BP 115/71 03/27/22 20:01 Pulse Ox 99 03/27/22 20:01 O2 Del Method 03/27/22 20:01 BMI result Body Mass Index 0.0 Const: General: cooperative, healthy appearing, no acute distress, alert and awake Orientation/consciousness: patient oriented x3 Limitations: no limitations HEENT: Head: Yes normal to inspection and Yes atraumatic Ears: hearing grossly normal bilaterally General nose exam: Normal external nose present Face and sinus: Yes normal facial exam Eyes: General: appearance normal, both eyes and all related structures EOM: EOMs intact bilaterally Neck: Neck: Yes normal visual inspection and Yes no meningeal signs Resp: Effort & Inspection: normal respiratory effort and no respiratory distress Auscultation: clear to auscultation bilaterally Cardio: Rate: regular rate Heart sounds: S1 normal heart sound present and S2 normal heart sound present Peripheral pulses: Peripheral pulses 2+ throughout Skin: Rashes: no rashes Wounds: no wounds Neuro: General: patient oriented x3, tone normal and no meningeal signs Gait exam (Neuro): Normal gait present Extrem: Other: + superficial phlebitis/painful indurated area noted to left internal calf. No edema. No erythema, mildly warm to touch. Neurovascular intact distally. Course Course Course Narrative: US venous duplex LE LT IMPRESSION: No DVT demonstrated in the left lower extremity. Superficial thrombophlebitis of prominent varicose veins of the mid/distal left calf. >> due to warmth at site will prescribe Keflex Results discussed with patient including worrisome signs and symptoms and strict return precautions, and when to return to the emergency department. They verbalized understanding and feel safe for discharge at this time. MDM - Extremity Injury (Lower) MDM Narrative Medical decision making narrative: 56-year-old female with a past medical history of COPD, delusional disorder, depression, HTN, lupus, stiff man syndrome, BIBA c/o left lower leg pain since this morning. On exam vital signs stable, NAD, nontoxic appearing, physical exam as above with superficial phlebitis vs ?Early abscess/cellulitis or DVT. Compartments soft no evidence of compartment syndrome, no active cellulitis Plan: Venous duplex ultrasound Medical Records Attestation: I reviewed the patient's medical records. Lab Data Attestation: I reviewed the patient's lab results. Discharge Plan Discharge Clinical Impression: Superficial thrombophlebitis Patient Disposition: Home, Self-Care Additional Instructions: Your ultrasound shows superficial thrombophlebitis. This area may be early infected, Keflex as antibiotic please take as prescribed Apply warm compresses Elevate legs, if symptoms persist or worsen return to the emergency department Please follow-up with her doctor Prescriptions: New cephalexin 500 mg capsule 500 mg PO QID 7 Days Qty: 28 0RF No Action propranolol 10 mg Tablet 10 mg PO BID Qty: 60 0RF Protocol: Hold for SBP/HR < HOLD for SBP < : 90 HOLD for HR < : 50 diazepam 5 mg tablet 5 mg PO DAILY PRN (Reason: anxiety) Qty: 30 0RF fluticasone propion-salmeterol [Advair Diskus] 250-50 mcg/dose blister with device 1 inh PO BID Qty: 60 0RF sennosides [Senna Lax] 8.6 mg Tablet 8.6 mg PO BID Qty: 60 0RF trazodone 50 mg Tablet 50 mg PO BEDTIME PRN (Reason: Insomnia) Qty: 30 0RF polyethylene glycol 3350 17 gram Powder In Packet 17 g PO BID@0700,1500 Qty: 30 0RF olanzapine 10 mg Tablet 20 mg PO BEDTIME Qty: 60 0RF melatonin 3 mg Tablet 6 mg PO BEDTIME PRN (Reason: Insomnia) Qty: 60 0RF baclofen 10 mg Tablet 10 mg PO TID Qty: 90 0RF docusate sodium 100 mg Capsule 200 mg PO BID Qty: 120 0RF midodrine 10 mg Tablet 10 mg PO TIDWM Qty: 90 0RF Deep Sea Nasal 0.65 % Aerosol,[place] 1 spray intranasal Q1H PRN (Reason: Dryness) Qty: 44 0RF Pedia-Lax 2.8 gram/2.7 mL Solution 2.7 ml SD TID Qty: 96 0RF amlodipine 5 mg Tablet 5 mg PO DAILY Qty: 30 0RF Protocol: Hold for SBP< HOLD for SBP < : 90 diazepam 10 mg tablet 10 mg PO TID Qty: 90 0RF Referrals: Physician,None [Primary Care Provider] - 1 week
[2022-03-27 19:01] VITALS: BP 139/60; PULSE 72; RESP 16; TEMP 36.8; O2SAT 100
--- OUTSIDE RECORDS SUMMARY | 2022-03-27 19:36 | XMS_ITS | Encounter Summary ---
:1965 Author Reason for Visit possible UTI started 3 days ago, burning while urinat ing and while sitting Assessment and Plan 1. Dysuria ? urinalysis, dipstick ? painful urination (dysuria): care ins tructions 2. Recurrent urinary tract infection ? urologist referral ? cefpodoxime 200 mg tablet 3. Acute urinary tract infection ? culture, urine Discussion Note: None recorded. Plan of Care Reminders Provider Appointments None recorded. ? ? Lab Urinalysis, Dipstick 03/12/2022 [facility] ? Culture, Urine 03/12/2022 [facility] Refere [facility] [place] Referral Urologist Referral 03/12/2022 [facility] Procedures None recorded. ? ? Surgeries None recorded. ? ? Imaging None recorded. ? ? Medications Name Start Date ? ? Advair Diskus 250 mcg-50 mcg/dose powder for inhalatio n ? INHALE 1 DOSE BY MOUTH TWICE DAILY. RINSE MOUTH AFTER USE amlodipine 5 mg tablet ? TAKE 1 TABLET (5 MG TOTAL) BY MOUTH DAILY. aspirin 81 mg chewable tablet ? TAKE 1 TABLET BY MOUTH EVERY DAY baclofen 10 mg tablet ? TAKE 1 TABLET BY MOUTH 2 TIMES A DAY NEEDED. cefpodoxime 100 mg tablet ? cefpodoxime 200 mg tablet ? TAKE 1 TABLET BY MOUTH EVERY 12 HOURS FOR 7 DAYS diazepam 10 mg tablet ? TAKE 1 TABLET BY MOUTH 3 TIMES A DAY docusate sodium 100 mg capsule ? TAKE 2 CAPSULES BY MOUTH TWICE A DAY duloxetine 60 mg capsule,delayed release ? TAKE 1 CAPSULE BY MOUTH DAILY gabapentin 600 mg tablet ? TAKE 1 TABLETS BY MOUTH THREE TIMES A DAY ibuprofen 800 mg tablet ? 1 TABLET BY MOUTH 3 TIMES A DAY NEEDED FOR SEVERE PAIN melatonin 3 mg tablet ? TAKE 2 TABLETS BY MOUTH AT BEDTIME NEEDED FOR INSO [place] midodrine 10 mg tablet ? TAKE 1 TABLET BY MOUTH 3 TIMES A DAY WITH MEALS nitrofurantoin monohydrate/macrocrystals 100 mg capsul e ? TAKE 1 CAPSULE BY MOUTH EVERY 12 HOURS WITH FOOD olanzapine 10 mg tablet ? TAKE 2 TABLETS BY MOUTH AT BEDTIME *INS ALLOWS MAX DO SE OF 1 TAB PER DAY* olanzapine 20 mg tablet ? TAKE 1 TABLET BY MOUTH AT BEDTIME pantoprazole 20 mg tablet,delayed release ? TAKE 1 TABLET BY MOUTH DAILY propranolol 10 mg tablet ? TAKE 1 TABLET BY MOUTH 2 TIMES A DAY Saline Mist 0.65 % nasal spray aerosol ? USE 1 SPRAY INTRANASALLY EVERY 1 HOUR NEEDED FOR D RYNESS senna 8.6 mg tablet ? TAKE 1 TABLET ORALLY 2 TIMES A DAY trazodone 50 mg tablet ? TAKE 1 TABLET BY MOUTH AT BEDTIME NEEDED FOR INSOM AGUS Medications Administered None recorded. Vitals None recorded. Results Lab Results Date Name Specimen Result Interpretation Description Value Range Status Address ? 03/12/2022 Culture, Urine ? Specimen clean catch ? Fin al [facility] Urine clean Description (urine) Refe rence catch Laborator[facility]: [address], [place] ? ? Urine ? Special none ? Final [facility] clean Requests Referenc e catch Laboratori es: [address], [place] ? ? Urine ? Culture mixed ? Final [facility] clean bacterial Referen ce catch darian, Laboratori es: indicative [address], u[place] contaminatio n. ? ? Urine ? Report Status final ? Final [facility] clean 03/14/2022 Refere nce catch Laboratori es: [address], [place] 03/12/2022 Urinalysis ? Leukocytes Large +++ ? ? [facility] , Dipstick [place]: [address] [facility] ? ? ? Nitrite negative ? ? [facility] [place]: [address] [facility] ? ? ? Urobilinogen 0.2-Normal ? ? [facility] [place]: [address] [facility] ? ? ? Protein Trace ? ? [facility] [place]: [address] [facility] ? ? ? Ph 6.0 ? ? [facility] [place]: [address] [facility] ? ? ? Blood Large +++ ? ? [facility] [place]: [address] [facility] ? ? ? Specific 1.025 ? ? [facility] [place] : [address] [facility] ? ? ? Ketone Negative ? ? [facility] [place]: [address] [facility] ? ? ? Bilirubin Negative ? ? [facility] [place]: [address] [facility] ? ? ? Glucose Negative ? ? [facility] [place]: [address] [facility] ? ? ? Appearance cloudy ? ? [facility]: [address] [facility] ? ? ? Color yellow ? ? [facility]: [address] [facility] Allergies Code Code System Name Reaction Severity Onset NKDA ? ? ? Problems None recorded. Procedures None recorded. Vaccine List Notes: covid vaccinated moderna Social History None recorded. Functional Status Unknown. Past Encounters 03/12/2022 Dysuria; Recurrent Urinary Tract Infecti on; Acute Urinary Tract Infection Alba Augustin, LOGGING ASSISTANT: [address] [place] [id number], Ph. History of Present Illness ? Dysuria Reported By: Patient Note: <div>Patient is a 56 year old female presenting for 3 days of urinary symptoms. States she has been having urinary urgency, frequency and dysuria. Over the last year she has had at least 3 UTIs with one of them putting her in the hospital for sepsis. Reports she is not sexually active. Has not tried any medications at home for her symptoms. Denies hematuria, abdominal pain, back pain, fever, chills, nausea and vomiting.</div> Review of Systems ? Comprehensive Adult Problem ROS Reported By: Patient Constitutional: Constitutional: no fever Genitourinary: : no discharge, no blood i n urine, no increase in frequency of urination, pain with urin ation, voiding urgency Neurological symptoms: Neuro: no headache, no dizzi ness Physical Exam ? Urology Reported By: Patient Constitutional: Level of Distress: no acute distress Abdomen: Inspection and Palpation: so ft, no CVA tenderness, suprapubic tenderness
--- OUTSIDE RECORDS SUMMARY | 2022-03-27 19:36 | XMS_ITS ---
:1965 Author Care Team Providers Name Role Phone Wayne Ogden Primary Care Provider Unavailable Allergies Code Code System Name Reaction Severity Status Onset NKDA ? Medications Name Status Start Date Stop Date ? ? Advair Diskus 250 mcg-50 mcg/dose powder for inhalation Active ? Not available INHALE 1 DOSE BY MOUTH TWICE DAILY. RINSE MOUTH AFTER USE amlodipine 5 mg tablet Active ? Not avail able TAKE 1 TABLET (5 MG TOTAL) BY MOUTH DAILY. aspirin 81 mg chewable tablet Active ? No t available TAKE 1 TABLET BY MOUTH EVERY DAY atorvastatin 20 mg tablet Completed ? 2021 TAKE 1 TABLET BY MOUTH EVERY DAY baclofen 10 mg tablet Active ? Not availa ble TAKE 1 TABLET BY MOUTH 2 TIMES A DAY NEEDED. cefpodoxime 100 mg tablet Active ? Not av ailable cefpodoxime 200 mg tablet Active ? Not av ailable TAKE 1 TABLET BY MOUTH EVERY 12 HOURS FOR 7 DAYS diazepam 10 mg tablet Active ? Not availa ble TAKE 1 TABLET BY MOUTH 3 TIMES A DAY diazepam 5 mg tablet Completed ? 03/12/2022 TAKE 1 TABLET BY MOUTH EVERY DAY NEEDED FOR ANXIETY docusate sodium 100 mg capsule Active ? N ot available TAKE 2 CAPSULES BY MOUTH TWICE A DAY duloxetine 60 mg capsule,delayed release Active ? Not available TAKE 1 CAPSULE BY MOUTH DAILY gabapentin 600 mg tablet Active ? Not carley ilable TAKE 1 TABLETS BY MOUTH THREE TIMES A DAY ibuprofen 800 mg tablet Active ? Not avai lable 1 TABLET BY MOUTH 3 TIMES A DAY NEEDED FOR SEVERE PAIN melatonin 3 mg tablet Active ? Not availa ble TAKE 2 TABLETS BY MOUTH AT BEDTIME NEEDED FOR INSOMNIA midodrine 10 mg tablet Active ? Not avail able TAKE 1 TABLET BY MOUTH 3 TIMES A DAY WITH MEALS midodrine 5 mg tablet Completed ? 03/12/2022 TAKE 1 TABLET BY MOUTH 3 TIMES A DAY nitrofurantoin monohydrate/macrocrystals 100 mg capsule Active ? Not available TAKE 1 CAPSULE BY MOUTH EVERY 12 HOURS WITH FOOD olanzapine 10 mg tablet Active ? Not avai lable TAKE 2 TABLETS BY MOUTH AT BEDTIME *INS ALLOWS MAX DOSE OF 1 TA B PER DAY* olanzapine 20 mg tablet Active ? Not avai lable TAKE 1 TABLET BY MOUTH AT BEDTIME pantoprazole 20 mg tablet,delayed release Active ? Not available TAKE 1 TABLET BY MOUTH DAILY propranolol 10 mg tablet Active ? Not carley ilable TAKE 1 TABLET BY MOUTH 2 TIMES A DAY propranolol 20 mg tablet Completed ? 022 TAKE 1 TABLET BY MOUTH 3 TIMES A DAY. quetiapine 25 mg tablet Completed ? 03/12/20 22 TAKE 1 TABLET ORALLY 2 TIMES A DAY risperidone 0.5 mg tablet Completed ? 2021 TAKE 1 TABLET BY MOUTH EVERY MORNING AND TAKE 1 TABLET BY M OUTH EVERY EVENING Saline Mist 0.65 % nasal spray aerosol Active ? Not available USE 1 SPRAY INTRANASALLY EVERY 1 HOUR NEEDED FOR DRYNESS senna 8.6 mg tablet Active ? Not availabl e TAKE 1 TABLET ORALLY 2 TIMES A DAY trazodone 50 mg tablet Active ? Not avail able TAKE 1 TABLET BY MOUTH AT BEDTIME NEEDED FOR INSOMNIA Problems None recorded. Procedures None recorded. Results Lab Results Date Name Specimen Result Interpretation Description Value Range Status Address ? 03/12/2022 Culture, Urine ? Specimen clean catch ? Fin al [facility] Urine clean Description (urine) Refe rence catch Laboratori es: [address], [place] ? ? Urine ? Special none ? Final [facility] clean Requests Referenc e catch Laboratori es: [address], [place] ? ? Urine ? Culture mixed ? Final [facility] clean bacterial Referen ce catch darian, Laboratori es: indicative [address], urogenital [place] field contaminatio n. ? ? Urine ? Report Status final ? Final [facility] 03/14/2022 Refere nce catch Laboratori es: [address], [place] 03/12/2022 Urinalysis ? Leukocytes Large +++ ? ? Byst [facility] , [place]: [address] [facility] ? ? ? Nitrite negative ? ? [facility]st [facility] [place]: [address] [facility] ? ? ? Urobilinogen 0.2-Normal ? ? Byst [facility] [place]: [address] [facility] ? ? ? Protein Trace ? ? Byst [facility] [place]: [address] [facility] ? ? ? Ph 6.0 ? ? Byst [facility]: [address] [facility] ? ? ? Blood Large +++ ? ? Byst [facility] [place]: [address] [facility] ? ? ? Specific 1.025 ? ? [facility]st [facility] [place] : [address] [facility] ? ? ? Ketone Negative ? ? Byst c [place]: [address] [facility] ? ? ? Bilirubin Negative ? ? Byst [facility]: [address] [facility] ? ? ? Glucose Negative ? ? Byst [facility] [place]: [address] [facility] ? ? ? Appearance cloudy ? ? Byst [facility]: [address] [facility] ? ? ? Color yellow ? ? Byst [facility]: [address] [facility] Past Encounters 03/12/2022 Dysuria; Recurrent Urinary Tract Infecti on; Acute Urinary Tract Infection Alba Augustin [employer]IONS: [address] [place] [id number], Ph. Social History None recorded. Vaccine List Notes: covid vaccinated moderna Plan of Care Reminders Provider Appointments None recorded. ? ? Lab None recorded. ? ? Referral None recorded. ? ? Procedures None recorded. ? ? Surgeries None recorded. ? ? Imaging None recorded. ? ? Vitals None recorded.
[2022-03-27 20:01] VITALS: BP 115/71; PULSE 90; RESP 16; TEMP 36.7; O2SAT 99
== END 2022-03-27 20:44 | disposition home or self-care (01) ==
PROVIDERS: Emergency Provider Emergency Medicine
DX: M79.605 Pain in left leg (principal); I80.3 Phlebitis and thrombophlebitis of lower extremities, unspecified; R60.0 Localized edema; F17.210 Nicotine dependence, cigarettes, uncomplicated; Z71.6 Tobacco abuse counseling; Z79.899 Other long term (current) drug therapy
CPT/HCPCS: 93971; 99283; 99284

== ENCOUNTER 2025-02-24 10:31 | Outpatient (AMB) | payer MEDICAID, SELFPAY ==
--- OUTSIDE RECORDS SUMMARY | 2008-08-29 | XMS_ITS | Encounter Summary ---
Author Organization [facility] Address [address] [facility] [address] [place] [address] Phone Care Team Providers Care Sole Edge Inker Machine Name Role Phone Unavailable Primary Care Provider Unavailabl e Encounter Details Date Type Department Care Team (Late st Contact Info) Description 08/29/2008 Hospital Encounter [facility] 55 [place] [address] Stacey Reis MD [address] [place] [address] [email or web address] Social History Tobacco Use Types Packs/Day Years [...] your housing situation today? I have melania sing 04/24/2021 How many times have you move [...] AM EST [facility] [address] [place] [address] documented as of this encounter Procedures Procedure Name Priority Date/Time Associated Diagnosis Comments BI US BREAST OUTSIDE (NO INTERPRETATION) Routine 08/29/2008 12:00 AM EDT documented in this encounter Results * US Breast Outside (No Interpretation) (08/29/2008 12:00 AM EDT) Narrative [facility] [place] [place] - 09/05/2020 1:42 PM EDT This study is for PACS storage only and not for interpretation. us Stacey Reis MD IMG OUTSIDE IMAGING W/OUT IN TERPRETATION Final Result [facility] [place] documented in this encounter Visit Diagnoses Not on filedocumented in this encounter Additional Source Comments The information contained in this document represents components of the legal health record. It is not the complete legal health record.[facility]
--- OUTSIDE RECORDS SUMMARY | 2008-08-29 | XMS_ITS | Encounter Summary ---
Author Organization [facility] Address [address] [facility] [address] [place] [address] Phone Care Team Providers Care Regional Sales Trainer Name Role Phone Unavailable Primary Care Provider Unavailabl e Encounter Details Date Type Department Care Team (Late st Contact Info) Description 08/29/[address] [facility] [address] [place] [address] Stacey Reis MD 15 [place] [address] Social History Tobacco Use Types Packs/Day Years [...] AM EST [facility] [address] [address] documented as of this encounter Procedures Procedure Name Priority Date/Time Associated Diagnosis Comments BI MAMMOGRAM OUTSIDE (NO INTERPRETATION) Routine 08/29/2008 12:00 AM EDT documented in this encounter Results * Mammogram Outside (No Interpretation) (08/29/2008 12:00 AM EDT) Narrative [facility] [place] [place] - 09/05/2020 1:42 PM EDT This study is for PACS storage only and not for interpretation. us Stacey Reis MD IMG OUTSIDE IMAGING W/OUT IN TERPRETATION Final Result [facility] [place] documented in this encounter Visit Diagnoses Not on filedocumented in this encounter Additional Source Comments The information contained in this document represents components of the legal health record. It is not the complete legal health record.[facility]
--- OUTSIDE RECORDS SUMMARY | 2008-09-11 | XMS_ITS | Encounter Summary ---
Author Organization [facility] Address [address] [facility] [address] [place] [address] Phone Care Team Providers Care Catering Truck Driver Name Role Phone Unavailable Primary Care Provider Unavailabl e Encounter Details Date Type Department Care Team (Late st Contact Info) Description 09/11/2008 Hospital Encounter [facility] 55 [place] [address] Stacey Reis MD 15 [place] [address] [email or web address] Social History Tobacco Use Types Packs/Day Years [...] EST [facility] [address] [address] documented as of this encounter Procedures Procedure Name Priority Date/Time Associated Diagnosis Comments BI MAMMOGRAM OUTSIDE (NO INTERPRETATION) Routine 09/11/2008 12:00 AM EDT documented in this encounter Results * Mammogram Outside (No Interpretation) (09/11/2008 12:00 AM EDT) Narrative [facility] IMG INTERFACES - 09/05/2020 1:43 PM EDT This study is for PACS storage only and not for interpretation. us Stacey Reis MD IMG OUTSIDE IMAGING W/OUT IN TERPRETATION Final Result [facility] IMG INTERFACES documented in this encounter Visit Diagnoses Not on filedocumented in this encounter Additional Source Comments The information contained in this document represents components of the legal health record. It is not the complete legal health record.[facility]
--- NOTE | 2025-02-24 10:33 | A.OFFPC_ITS ---
Vital Signs 02/24/25 10:42 Height 5 ft 4 in Weight 190 lb 4 oz BMI 32.7 BP 120/80 Blood Pressure Location Rt brachial Position Sitting Respiration 16 Pulse 74 Pulse Source Pulse Oximeter Temp 97.5 F Temp Source Oral Pulse Oximetry (%) 96 Oxygen Delivery Method Room Air Intake Visit Reasons: High BP- Psy meds. Intake Note: establish care Dental Laboratory Technology Teacher Required: No Accompanied by: Self / Same As Patient Allergies albuterol Adverse Reaction (Verified 02/24/25 10:34) Palpitations Tobacco use date assessed: 02/24/25 Dental Screening Dental Screen Date: 02/24/25 Did you have a dental visit in the last 12 months?: Yes Did you have a dental problem in the last 6 months where you did not have access to dental care?: No Was dental information given to patient?: Patient has dentist HPI HPI Comments History of Present Illness Details History of Present Illness The patient is a 59-year-old female presenting with the need to establish care with a new primary care physician and manage ongoing medical conditions. 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 - Symptoms include tremors and muscle sp asms, managed with Rituximab infusions. - Previous care by Dr. Horner, currently without a auto battery builder. Hypertension: - History of hypertension, previously ma naged with amlodipine, now discontinued. Hypotension: - Managed with midodrine for low blood p ressure. Chronic Obstructive Pulmonary Disease (COPD): - Diagnosed with COPD, previously manage d by a power shovel operator helper, currently without one. - Pulmonary function test recommended to assess current status. Tremors: - Lifelong history of tremors, associate d with Stiff Person Syndrome. Review of Systems - Neurological: Reports tremors and musc le spasms associated with Stiff Person Syndrome. - Cardiovascular: Reports low blood pres sure managed with midodrine. - Respiratory: Reports COPD, no current symptoms reported. 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 - Hypertension, previously managed with amlodipine. - Hypotension managed with midodrine. - Chronic Obstructive Pulmonary Disease (COPD), previously managed by a power shovel operator helper. 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 Health Maintenance - Pap smear performed two weeks ago, res ults pending. - Mammogram performed two months ago, re sults not discussed. - Colonoscopy performed five years ago, results were normal. Physical Exam - Cardiovascular: Heart auscultation per formed, no abnormalities noted - Respiratory: Pulmonary auscultation pe rformed, no abnormalities noted - Neurological: Cranial nerve examinatio n performed, no abnormalities noted - Endocrine: Thyroid palpation performed , no abnormalities noted Plan 1. Stiff Person Syndrome - Referral to auto battery builder for ongoing management and infusion coordination. 2. Hypertension - Monitor blood pressure, no current med ication required as per patient report. 3. Hypotension - Continue midodrine for management of l ow blood pressure. 4. Chronic Obstructive Pulmonary Disease (Copd) - Pulmonary function test ordered to ass ess current status. 5. Tremors - Managed as part of Stiff Person Syndro me treatment plan. Discussion Notes I discussed the need for a referral to a auto battery builder for ongoing management of Stiff Person Syndrome and coordination of infusions. We also talked about the importance of a pulmonary function test to assess the current status of COPD. I advised the patient to continue midodrine for hypotension and to monitor blood pressure regularly. Additionally, I emphasized the need to obtain medical records from previous providers to ensure continuity of care. Patient Instructions - Follow up with a auto battery builder for St iff Person Syndrome management. - Schedule and complete a pulmonary func tion test for COPD assessment. - Continue taking midodrine as prescribe d for low blood pressure. - Obtain and provide previous medical re cords to the current provider. [facility] Medical History Depression Bowel perforation Lupus Hypertension Stiff-man syndrome Pneumonia COPD (chronic obstructive pulmonary disease) Delusional disorder Surgical History History of mandibular surgery History of cholecystectomy Family History Paternal Grandmother TB (pulmonary tuberculosis) Father FH: HTN (hypertension) Social History Household Members: Family Household Members Other:: son, gf, grandchildren Housing: House Do you presently have visiting nurse or other home services: No (By history) Alcohol intake: current Alcohol intake frequency: does not drink Patient Tobacco Use Status: Current everyday Tobacco user Tobacco use type: Cigarette Cigarette Packs Per Day: 5 e-Cigarette/Vaping Use: Currently Using Second Hand Smoke Exposure: No Substance Use Type: Marijuana, Other and Caffiene service: No Current occupational status: retired and disabled Sexual orientation: Straight/Heterosexual Cognitive needs: No Hearing needs: No Vision needs: Yes (rx glasses) Questionnaire PHQ-9 Over the last 2 weeks, how often have you been bothered by any of the following problems? 1. Little interest or pleasure in doing things: several days 2. Feeling down, depressed, or hopeless: several days 3. Trouble falling or staying asleep, or sleeping too much: several days 4. Feeling tired or having little energy: several days 5. Poor appetite or overeating: not at all 6. Feeling bad about yourself - or that you are a failure or have let yourself or your family down: not at all 7. Trouble concentrating on things, such as reading the newspaper or watching television: several days 8. Moving or speaking so slowly that other people could have noticed. Or the opposite - being so fidgety or restless that you have been moving around a lot more than usual: several days 9. Thoughts that you would be better off or of hurting yourself in some way: not at all Total score: 6 Depression Screening Interpretation: Positive Depression Screening Done: Yes Source: Developed by Drs. Jason Solano, Tomasa Mott, Yordy Palencia and colleagues, with an educational kala from [employer]. Thrive Questionnaire Date Thrive assessed: 02/24/25 I am a: Patient What is your living situation today?: I have a steady place to live Within the past 12 months, did the food you bought not last and you didn't have the money to get more?: Often true Within the past 12 months, did you worry whether your food would run out before you got money to buy more?: Often true Do you have trouble paying for medicines?: No Do you have trouble getting transportation to medical appointments?: Yes Do you have trouble paying your heating and electricity bill?: No Do you have trouble taking care of your child, family member or friend?: Yes Are you currently unemployed and looking for a job?: No Are you interested in more education?: No Please select the resources that you would like help with: Daily support Currently or been in a relationship where the following occur: Controlled Financially and No concerns reported THRIVE Score: 4 AUDIT C Alcohol Use Questionnaire (AUDIT-C) 1. How often do you have a drink containing alcohol?: Never 3. How often do you have six or more drinks on one occasion?: Never Total Score: 0 PATRICIA-7 AMB Questionnaire PATRICIA-7 Date PATRICIA - 7 assessed: 02/24/25 Feeling nervous, anxious, or on edge: 1 = Several days Not being able to stop or control worryin = Not at all Worrying too much about different things: 2 = More than half the days Trouble relaxin = Several days Being so restless that it is hard to sit still: 2 = More than half the days Becoming easily annoyed or irritable: 1 = Several days Feeling afraid as if something awful might happen: 0 = Not at all Total PATRICIA-7 score (0-4 normal; 5-9 mild; 10-14 moderate; 15-21 severe): 7 Source: Developed by Drs. Jason Solano, Tomasa Mott, Yordy Palencia and colleagues, with an educational kala from [employer]. Physical exam (Primary Care) Tobacco/Smoking Status: Tobacco use Status Patient Tobacco Use Status Current everyday Tobacco 02/11/22 11:04 Tobacco use type Cigarette 01/21/22 16:17 e-Cigarette/Vaping Use Currently Using 01/21/22 16:17 Depression Screening Interpretation: Positive Currently or been in a relationship where the following occur: Controlled Financially and No concerns reported Coding Level of Care Code New Pt Level 3 (79910) Diagnoses Encounter to establish care Z76.89 Encounter for screening, unspecified Z13.9 COPD (chronic obstructive pulmonary disease) J44.9 Stiff-man syndrome G25.82 Screening for lipoid disorders Z13.220 Screening for diabetes mellitus Z13.1 Nicotine use Z72.0 No home medical services Z75.0 Hypertension I10 Hypotension I95.9 Tremors of nervous system R25.1 Spasms of the hands or feet R25.2 Abnormality of gait and mobility R26.9 Assessment & Plan Assessment & Plan (1) Encounter to establish care: Code(s): Z76.89 - Persons encountering health services in other specified circumstances (2) Encounter for screening, unspecified: Code(s): Z13.9 - Encounter for screening, unspecified (3) COPD (chronic obstructive pulmonary disease): Code(s): J44.9 - Chronic obstructive pulmonary disease, unspecified Category: Medical (4) Stiff-man syndrome: Code(s): G25.82 - Stiff-man syndrome Category: Medical (5) Screening for lipoid disorders: Code(s): Z13.220 - Encounter for screening for lipoid disorders (6) Screening for diabetes mellitus: Code(s): Z13.1 - Encounter for screening for diabetes mellitus (7) Nicotine use: Code(s): Z72.0 - Tobacco use (8) Stiff-man syndrome: Code(s): G25.82 - Stiff-man syndrome Category: Medical (9) No home medical services: Code(s): Z75.0 - Medical services not available in home Category: Medical (10) Hypertension: Code(s): I10 - Essential (primary) hypertension (11) Hypotension: Code(s): I95.9 - Hypotension, unspecified (12) Tremors of nervous system: Code(s): R25.1 - Tremor, unspecified (13) Spasms of the hands or feet: Code(s): R25.2 - Cramp and spasm (14) Abnormality of gait and mobility: Code(s): R26.9 - Unspecified abnormalities of gait and mobility Plan Orders: Orders Hemoglobin A1c Today Mike Boyle MD Z13.9 - Encounter for screening, unspecified, Z76.89 - Persons encountering health services in other specified circumstances Hepatitis B Surface Antibody Today Mike Boyle MD Z13.9 - Encounter for screening, unspecified, Z76.89 - Persons encountering health services in other specified circumstances Hepatitis C Antibody Today Mike Boyle MD Z13.9 - Encounter for screening, unspecified, Z76.89 - Persons encountering health services in other specified circumstances HIV Ab/Ag Today Mike Boyle MD Z13.9 - Encounter for screening, unspecified, Z76.89 - Persons encountering health services in other specified circumstances Lipid Panel Today Mike Boyle MD Z13.9 - Encounter for screening, unspecified, Z76.89 - Persons encountering health services in other specified circumstances Vitamin B12 and Folate Today Mike Bolye MD Z13.9 - Encounter for screening, unspecified, Z76.89 - Persons encountering health services in other specified circumstances Vitamin D 1,25 dihydroxy Today Mike Boyle MD Z13.9 - Encounter for screening, unspecified, Z76.89 - Persons encountering health services in other specified circumstances Complete Blood Count Auto Diff Today Mike Boyle MD Z13.9 - Encounter for screening, unspecified, Z76.89 - Persons encountering health services in other specified circumstances Comprehensive Met. Panel Today Mike Boyle MD Z13.9 - Encounter for screening, unspecified, Z76.89 - Persons encountering health services in other specified circumstances Hepatitis B Surface Antigen Today Mike Boyle MD Z13.9 - Encounter for screening, unspecified, Z76.89 - Persons encountering health services in other specified circumstances TSH reflex Free T4 Today Mike Boyle MD Z13.9 - Encounter for screening, unspecified, Z76.89 - Persons encountering health services in other specified circumstances UA CC w/rflx Micro + Cult Today Mike Boyle MD Z13.9 - Encounter for screening, unspecified, Z76.89 - Persons encountering health services in other specified circumstances PFT pulmonary function test Today Mike Boyle MD J44.9 - Chronic obstructive pulmonary disease, unspecified, Z13.9 - Encounter for screening, unspecified, Z76.89 - Persons encountering health services in other specified circumstances Referrals Jewelry Sales Referral Mike Boyle MD Z13.9 - Encounter for screening, unspecified, Z75.0 - Medical services not available in home, Z76.89 - Persons encountering health services in other specified circumstances Rheumatology Referral Mike Boyle MD G25.82 - Stiff-man syndrome, Z13.9 - Encounter for screening, unspecified, Z76.89 - Persons encountering health services in other specified circumstances Medications: Discontinued sennosides (Senna Lax) Discontinued Reason: Patient no longer taking 8.6 mg PO BID 60 tabs 0RF amlodipine Discontinued Reason: Patient no longer taking 5 mg See Protocol PO DAILY 30 tabs 0RF cephalexin Discontinued Reason: Patient no longer taking 500 mg PO QID 7 days 28 caps 0RF propranolol Discontinued Reason: Patient no longer taking 10 mg See Protocol PO BID 60 tabs 0RF [place] Michelle Blevins [place] sodium chloride 0.65% (Deep Sea Nasal) Discontinued Reason: Patient no longer taking 1 spray intranasal Q1H PRN 44 mL 0RF Dryness docusate sodium Discontinued Reason: Patient no longer taking 200 mg (2 x 100 mg) PO BID 120 caps 0RF fluticasone propion-salmeterol 250-50 mcg/dose (Advair Diskus) Discontinued Reason: Patient no longer taking 1 inh PO BID 60 ea 0RF [place] Michelle Blevins MA glycerin (laxative) (Pedia-Lax) Discontinued Reason: Patient no longer taking 2.7 mL NH TID 96 mL 0RF polyethylene glycol 3350 Discontinued Reason: Patient no longer taking 17 grams PO BID@0700,1500 30 ea 0RF
[2025-02-24 10:42] VITALS: BP 120/80; PULSE 74; RESP 16; TEMP 36.4; O2SAT 96; BMI 32.7
--- OUTSIDE RECORDS SUMMARY | 2025-02-24 11:08 | XMS_ITS | Encounter Summary ---
Author Organization [facility] Address [address] [place] [phone] Phone Care Team Providers Care Cocoa Bean Cleaner Name Role Phone Stacey Reis MD Primary Care Provider [phone] Stacey Reis MD Unavailable [phone] Khurram Ruelas MD Unavailable + Khurram Ruelas MD Unavailable + Stacey Reis MD Unavailable [phone] Waylon Crespo MD Unavailable + Waylon Crespo MD Unavailable + Stacey Reis MD Unavailable [phone] Beryl Shirley CASTING FINISHER Unavailable [phone] Kaleigh Adams CASTING FINISHER Unavailable [phone] [facility] Catrina Mcclendon CASTING FINISHER Unavailable + [phone] Romain Paulson CASTING FINISHER Unavailable [email or web address] Yomi Bass MD Unavailable [phone] Keny Govea CASTING FINISHER Unavailable [phone] Unknown, Unknown Primary Care Provider Yomi Gray MD Unavailable [phone] Alba Harmon MD Unavailable [phone] Pcp, Unknown Primary Care Provider Unavailabl e Encounter Details Date Type Department Care Team (Late st Contact Info) Description 02/17/[address] [place] [address] [place] [address] Social History Tobacco Use Types Packs/Day Years Used Date Smoking Tobacco: Every Day Smokeless Tobacco: Never Comments No Sex and Gender Information Value Date Recorded Sex Assigned at Not on file Legal Sex Female 8:11 PM EST Gender Identity Not on file Sexual Orientation Not on file documented as of this encounter Plan of Treatment Upcoming Encounters Date Type Department Care Team (Late st Contact Info) Description 05/16/2025 6:00 AM EST [facility] [address] 1st [place] [address] documented as of this encounter Visit Diagnoses Not on filedocumented in this encounter Additional Health Concerns Assessment Noted Time PHQ-2 Depression Total Score: 0 03/25/20 17 1:47 PM EDT documented as of this encounter Care Teams Cocoa Bean Cleaner Relationship Specialty Start Date End Date Stacey Reis MD [email or web address] PCP - General 03/11/14 02/16/22 Khurram Ruelas MD [address] [place] [phone] [email or web address] PCP - Resident PCP 12/01/16 11/29/18 Waylon Crespo MD 55 [facility] [address] [place] [address] [email or web address] PCP - Resident PCP 11/30/1811/29 Yomi Bass MD 15 [facility] [address] [place] [address] [email or web address] PCP - Resident PCP 11/30/21 02/16/22 Unknown, German, PCP - General 03/03/22 11/16/23 Pcp, Unknown PCP - General 11/17/23 Stacey Reis MD [address] [place] [phone] [email or web address] Insurance Assigned Provider 09/20/16 Khurram Ruelas MD [address] [place] [phone] [email or web address] Attributed Provider 01/10/1712/11 Stacey Reis MD [address] [place] [phone] [email or web address] Insurance Assigned Provider 09/18/1810/09/18 Waylon Crespo MD [address] [place] [address] [phone] [place] [phone] [email or web address] Attributed Provider 01/08/19 07/12/22 Stacey Reis MD [address] [place] [address] [email or web address] Insurance Assigned Provider 09/14/1909/13/22 Beryl Shirley LICSW [address] [place] [phone] [email or web address] Social Work 01/24/20 07/16/20 Kaleigh Adams LICSW [address] [place] [phone] [email or web address] Shop Supervisor 06/06/20 07/31/20 Brandon Danelle Catrina [facility] [address] [place] [phone] [email or web address] Social Work 07/17/20 07/18/21 Romain Paulson, [facility] [address] [place] [phone] [email or web address] Social Work 07/19/21 Keny Govea, [facility] [address] [place] [address] [email or web address] Social Work 01/03/22 Yomi Bass MD 15 [facility] [address] [place] [address] [email or web address] Partners Attributed Provider 07/12/22 06/13/23 Alba Harmon MD 50 , 10th Floor, [address] [place] [address] 10 [place] [address] [email or web address] Insurance Assigned Provider 09/13/22 documented as of this encounter Additional Source Comments The information contained in this document represents components of the legal health record. It is not the complete legal health record.[facility]
--- OUTSIDE RECORDS SUMMARY | 2025-02-24 11:09 | XMS_ITS | Encounter Summary ---
Author Organization [facility] Address [address] [place] [phone] Care Team Providers Care Residential Program Manager Name Role Phone Naif Mixon MD Primary Care Provider [phone] Encounter Details Date Type Department Care Team (Late st Contact Info) Description 06/13/2024 Lab Requisition [facility] - Main Lab 299 [facility] [place] [address] Naif Mixon MD [address] [place] [address] Depression, unspecified; Stiff-man syndrome; Schizophrenia, unspecified (CMS/HCC V24, CMS/HCC V28) Social History Tobacco Use Types Packs/Day Years Used Date Smoking Tobacco: Former Cigarettes Q uit: 03/25/2010 Smokeless Tobacco: Never Alcohol Use Standard Drinks/Week Comments Yes 0 (1 standard drink = 0.6 oz pur e alcohol) Comments Unknown Sex and Gender Information Value Date Recorded Sex Assigned at Not on file Legal Sex Female 5:17 PM EST Gender Identity Not on file Sexual Orientation Not on file documented as of this encounter Plan of Treatment Not on file documented as of this encounter Procedures Procedure Name Priority Date/Time Associated Diagnosis Comments COMPLETE BLOOD COUNT Routine 06/13/2024 8:15 AM EST Depression, unspecified Stiff-man syndrome Schizophrenia, unspecified (CMS/HCC) BASIC METABOLIC PANEL Routine 06/13/2024 8:15 AM EST Depression, unspecified Stiff-man syndrome Schizophrenia, unspecified (CMS/HCC) documented in this encounter Results * (ABNORMAL) Basic metabolic panel (06/13/2024 8:15 AM EST) Sodium 140 133 - 145 mmol/L LAB CHEMISTRY METHOD 06/13/2024 12:20 PM [facility] Potassium 4.3 3.5 - 5.5 mmol/L LAB CHEMISTRY METHOD 06/13/2024 12:20 PM [facility] Chloride 109 96 - 110 mmol/L LAB CHEMISTRY METHOD 06/13/2024 12:20 PM [facility] CO2 27 21 - 32 mmol/L LAB CHEMISTRY METHOD 06/13/2024 12:20 PM [facility] Anion Gap 4 3 - 11 LAB CHEMISTRY METHOD 06/13/2024 12:20 PM [facility] Glucose 106(H) 70 - 100 mg/dL LAB CHEMISTRY METHOD 06/13/2024 12:20 PM [facility] BUN 32(H) 5 - 25 mg/dL LAB CHEMISTRY METHOD 06/13/2024 12:20 PM [facility] Creatinine 0.80 0.50 - 1.10 mg/dL LAB CHEMISTRY METHOD 06/13/2024 12:20 PM [facility] eGFR 84 >=60 mL/min/1. 73m2 LAB CHEMISTRY METHOD 06/13/2024 12:20 PM [facility] Comment:Calculation based on the Chronic Kidney Disease Epidemiology Collaboration (CKD-EPI) equation refit without adjustment for race. BUN/Creatinine Ratio 40.0 LAB CHEMISTRY METHOD 06/13/2024 12:20 PM [facility] Calcium 8.9 8.5 - 10.5 mg/dL LAB CHEMISTRY METHOD 06/13/2024 12:20 PM [facility] Blood Venous blood specimen / Unknown Venipuncture / Unknown 06/13/2024 8:15 AM EST 06/13/2024 10:49 AM EST us Naif Mixon MD LAB BLOOD ORDERABLES Final R esult [facility] [address] [place] [address], * (ABNORMAL) Complete blood count (06/13/2024 8:15 AM EST) [facility] WBC 5.3 4.8 - 10.8 K/mcL LAB HEMETOLOGY METHOD 06/13/2024 12:53 PM EST [facility] RBC 3.40(L) 3.80 - 4.80 M/mcL LAB HEMETOLOGY METHOD 06/13/2024 12:53 PM [facility] Hemoglobin 10.3(L) 11.5 - 16.0 g/dL LAB HEMETOLOGY METHOD 06/13/2024 12:53 PM [facility] Hematocrit 33.2(L) 35.0 - 47.0 % LAB HEMETOLOGY METHOD 06/13/2024 12:53 PM [facility] MCV 98.5(H) 79.0 - 98.0 FL LAB HEMETOLOGY METHOD 06/13/2024 12:53 PM [facility] MCH 30.6 27.0 - 32.0 pcg LAB HEMETOLOGY METHOD 06/13/2024 12:53 PM [facility] MCHC 31.0(L) 32.0 - 37.0 g/dL LAB HEMETOLOGY METHOD 06/13/2024 12:53 PM [facility] RDW 16.6(H) 11.0 - 15.0 % LAB HEMETOLOGY METHOD 06/13/2024 12:53 PM [facility] Platelets 269 130 - 400 K/mcL LAB HEMETOLOGY METHOD 06/13/2024 12:53 PM [facility] MPV 9.7 7.0 - 11.0 FL LAB HEMETOLOGY METHOD 06/13/2024 12:53 PM [facility] NRBC 0.0 <1.0 % LAB HEMETOLOGY METHOD 06/13/2024 12:53 PM EST [facility] NRBC Absolute 0.00 <0.10 K/mcL LAB HEMETOLOGY METHOD 06/13/2024 12:53 PM EST [facility] Blood Venous blood specimen / Unknown Venipuncture / Unknown 06/13/2024 8:15 AM EST 06/13/2024 10:49 AM EST Naif Mixon MD LAB BLOOD ORDERABLES Final R esult [facility] [address] [place] [address], documented in this encounter Visit Diagnoses Diagnosis Depression, unspecified Stiff-man syndrome Schizophrenia, unspecified (CMS/HCC V24, CMS/HCC V28) documented in this encounter Care Teams Residential Program Manager Relationship Specialty Start Date End Date Naif Mixon MD [address] [place] [address] PCP - General Family Medicine 05/20/24 documented as of this encounter
--- OUTSIDE RECORDS SUMMARY | 2025-02-24 11:09 | XMS_ITS | Encounter Summary ---
Author Organization [facility] Address [address] [place] [phone] Care Team Providers Care Police Reserves Commander Name Role Phone Naif Mixon MD Primary Care Provider [phone] Encounter Details Date Type Department Care Team (Late st Contact Info) Description 04/09/2024 Lab Requisition [facility] - Main Lab 299 [facility] [place] [address] Naif Mixon MD [address] [place] [address] Hypokalemia; Acute kidney failure, unspecified (CMS/HCC V24) Social History Tobacco Use Types Packs/Day Years [...] Procedure Name Priority Date/Time Associated Diagnosis Comments TRAVEL PHLEBOTOMY FEE Routine 04/11/2024 7:16 AM EST Hypokalemia Acute kidney failure, unspecified (CMS/HCC) COMPLETE BLOOD COUNT Routine 04/11/2024 7:16 AM EST Hypokalemia Acute kidney failure, unspecified (CMS/HCC) BASIC METABOLIC PANEL Routine 04/11/2024 7:16 AM EST Hypokalemia Acute kidney failure, unspecified (CMS/HCC) documented in this encounter Results * Travel phlebotomy fee (04/11/2024 7:16 AM EST) [facility] TRAVEL PHLEBOTOMY FEE Completed 04/11/2024 12:01 PM [facility] Blood Venous blood specimen / Unknown Venipuncture / Unknown 04/11/2024 7:16 AM EST 04/11/2024 12:00 PM EST us Naif Mixon MD LAB BLOOD ORDERABLES Final R esult [facility] [address] [place] [address], * (ABNORMAL) Basic metabolic panel (04/11/2024 7:16 AM EST) [facility] Sodium 144 133 - 145 mmol/L LAB CHEMISTRY METHOD 04/11/2024 1:21 PM [facility] Potassium 3.8 3.5 - 5.5 mmol/L LAB CHEMISTRY METHOD 04/11/2024 1:21 PM [facility] Chloride 109 96 - 110 mmol/L LAB CHEMISTRY METHOD 04/11/2024 1:21 PM [facility] CO2 27 21 - 32 mmol/L LAB CHEMISTRY METHOD 04/11/2024 1:21 PM [facility] Anion Gap 8 3 - 11 LAB CHEMISTRY METHOD 04/11/2024 1:21 PM [facility] Glucose 65(L) 70 - 100 mg/dL LAB CHEMISTRY METHOD 04/11/2024 1:21 PM [facility] BUN 11 5 - 25 mg/dL LAB CHEMISTRY METHOD 04/11/2024 1:21 PM [facility] Creatinine 0.56 0.50 - 1.10 mg/dL LAB CHEMISTRY METHOD 04/11/2024 1:21 PM [facility] eGFR 105 >=60 mL/min/1. 73m2 LAB CHEMISTRY METHOD 04/11/2024 1:21 PM [facility] Comment:Calculation based on the Chronic Kidney Disease Epidemiology Collaboration (CKD-EPI) equation refit without adjustment for race. BUN/Creatinine Ratio 19.6 LAB CHEMISTRY METHOD 04/11/2024 1:21 PM [facility] Calcium 8.8 8.5 - 10.5 mg/dL LAB CHEMISTRY METHOD 04/11/2024 1:21 PM [facility] Blood Venous blood specimen / Unknown Venipuncture / Unknown 04/11/2024 7:16 AM EST 04/11/2024 12:00 PM EST us Naif Mxion MD LAB BLOOD ORDERABLES Final R esult [facility] [address] [place] [address], * (ABNORMAL) Complete blood count (04/11/2024 7:16 AM EST) WBC 5.0 4.8 - 10.8 K/mcL LAB HEMETOLOGY METHOD 04/11/2024 12:47 PM [facility] RBC 3.00(L) 3.80 - 4.80 M/mcL LAB HEMETOLOGY METHOD 04/11/2024 12:47 PM [facility] Hemoglobin 8.6(L) 11.5 - 16.0 g/dL LAB HEMETOLOGY METHOD 04/11/2024 12:47 PM [facility] Hematocrit 28.6(L) 35.0 - 47.0 % LAB HEMETOLOGY METHOD 04/11/2024 12:47 PM [facility] MCV 94.1 79.0 - 98.0 FL LAB HEMETOLOGY METHOD 04/11/2024 12:47 PM [facility] MCH 28.3 27.0 - 32.0 pcg LAB HEMETOLOGY METHOD 04/11/2024 12:47 PM [facility] MCHC 30.1(L) 32.0 - 37.0 g/dL LAB HEMETOLOGY METHOD 04/11/2024 12:47 PM [facility] RDW 15.4(H) 11.0 - 15.0 % LAB HEMETOLOGY METHOD 04/11/2024 12:47 PM [facility] Platelets 388 130 - 400 K/mcL LAB HEMETOLOGY METHOD 04/11/2024 12:47 PM [facility] MPV 9.1 7.0 - 11.0 FL LAB HEMETOLOGY METHOD 04/11/2024 12:47 PM [facility] NRBC 0.0 <1.0 % LAB HEMETOLOGY METHOD 04/11/2024 12:47 PM [facility] NRBC Absolute 0.00 <0.10 K/mcL LAB HEMETOLOGY METHOD 04/11/2024 12:47 PM [facility] Blood Venous blood specimen / Unknown Venipuncture / Unknown 04/11/2024 7:16 AM EST 04/11/2024 12:00 PM EST us Naif Mixon MD LAB BLOOD ORDERABLES Final R esult [facility] [address] [place] [address], documented in this encounter Visit Diagnoses Diagnosis Hypokalemia Hypopotassemia Acute kidney failure, unspecified (CMS/HCC V24) Acute kidney failure, unspecified documented in this encounter Care Teams Police Reserves Commander Relationship Specialty Start Date End Date Naif Mixon MD [address] [place] [address] PCP - General Family Medicine 05/20/24 documented as of this encounter
--- OUTSIDE RECORDS SUMMARY | 2025-02-24 11:09 | XMS_ITS | Encounter Summary ---
Author Organization [facility] Address [address] [place] [phone] Care Team Providers Care Anesthesia Attending Name Role Phone Naif Mixon MD Primary Care Provider [phone] Encounter Details Date Type Department Care Team (Latest Contact Info) Description 07/23/2024 Lab Requisition [facility] - Main Lab 299 [facility] [place] [address] Naif Mixon MD [address] [place] [address] Schizophrenia, unspecified (CMS/HCC V24, CMS/HCC V28); Other schizoaffective disorders (CMS/HCC V24, CMS/HCC V28); Major depressive disorder, single episode, moderate (CMS/HCC V24, CMS/HCC V28) Social History Tobacco [...] Associated Diagnosis Comments COMPLETE BLOOD COUNT Routine 07/25/2024 7:47 AM EST Schizophrenia, unspecified (CMS/HCC) Other schizoaffective disorders (CMS/HCC) Major depressive disorder, single episode, moderate (CMS/HCC) BASIC METABOLIC PANEL Routine 07/25/2024 7:47 AM EST Schizophrenia, unspecified (CMS/HCC) Other schizoaffective disorders (CMS/HCC) Major depressive disorder, single episode, moderate (CMS/HCC) documented in this encounter Results * (ABNORMAL) Basic metabolic panel (07/25/2024 7:47 AM EST) Sodium 144 133 - 145 mmol/L LAB CHEMISTRY METHOD 07/25/2024 11:46 AM [facility] Potassium 4.4 3.5 - 5.5 mmol/L LAB CHEMISTRY METHOD 07/25/2024 11:46 AM [facility] Chloride 112(H) 96 - 110 mmol/L LAB CHEMISTRY METHOD 07/25/2024 11:46 AM [facility] CO2 25 21 - 32 mmol/L LAB CHEMISTRY METHOD 07/25/2024 11:46 AM [facility] Anion Gap 7 3 - 11 LAB CHEMISTRY METHOD 07/25/2024 11:46 AM [facility] Glucose 95 70 - 100 mg/dL LAB CHEMISTRY METHOD 07/25/2024 11:46 AM [facility] BUN 20 5 - 25 mg/dL LAB CHEMISTRY METHOD 07/25/2024 11:46 AM [facility] Creatinine 0.78 0.50 - 1.10 mg/dL LAB CHEMISTRY METHOD 07/25/2024 11:46 AM [facility] eGFR 87 >=60 mL/min/1. 73m2 LAB CHEMISTRY METHOD 07/25/2024 11:46 AM [facility] Comment:Calculation based on the Chronic Kidney Disease Epidemiology Collaboration (CKD-EPI) equation refit without adjustment for race. BUN/Creatinine Ratio 25.6 LAB CHEMISTRY METHOD 07/25/2024 11:46 AM [facility] Calcium 9.0 8.5 - 10.5 mg/dL LAB CHEMISTRY METHOD 07/25/2024 11:46 AM [facility] Blood Venous blood specimen / Unknown Venipuncture / Unknown 07/25/2024 7:47 AM EST 07/25/2024 11:08 AM EST us Naif Mixon MD LAB BLOOD ORDERABLES Final R esult [facility] [address] [place] [address], [place] [phone] * (ABNORMAL) Complete blood count (07/25/2024 7:47 AM EST) WBC 4.4(L) 4.8 - 10.8 K/mcL LAB HEMETOLOGY METHOD 07/25/2024 11:29 AM [facility] RBC 3.50(L) 3.80 - 4.80 M/mcL LAB HEMETOLOGY METHOD 07/25/2024 11:29 AM [facility] Hemoglobin 10.9(L) 11.5 - 16.0 g/dL LAB HEMETOLOGY METHOD 07/25/2024 11:29 AM [facility] Hematocrit 33.7(L) 35.0 - 47.0 % LAB HEMETOLOGY METHOD 07/25/2024 11:29 AM [facility] MCV 95.5 79.0 - 98.0 FL LAB HEMETOLOGY METHOD 07/25/2024 11:29 AM [facility] MCH 30.9 27.0 - 32.0 pcg LAB HEMETOLOGY METHOD 07/25/2024 11:29 AM [facility] MCHC 32.3 32.0 - 37.0 g/dL LAB HEMETOLOGY METHOD 07/25/2024 11:29 AM [facility] RDW 14.2 11.0 - 15.0 % LAB HEMETOLOGY METHOD 07/25/2024 11:29 AM [facility] Platelets 198 130 - 400 K/mcL LAB HEMETOLOGY METHOD 07/25/2024 11:29 AM EST [facility] MPV 9.2 7.0 - 11.0 FL LAB HEMETOLOGY METHOD 07/25/2024 11:29 AM EST [facility] NRBC 0.0 <1.0 % LAB HEMETOLOGY METHOD 07/25/2024 11:29 AM EST [facility] NRBC Absolute 0.00 <0.10 K/mcL LAB HEMETOLOGY METHOD 07/25/2024 11:29 AM EST [facility] Blood Venous blood specimen / Unknown Venipuncture / Unknown 07/25/2024 7:47 AM EST 07/25/2024 11:08 AM EST us Naif Mixon MD LAB BLOOD ORDERABLES Final R esult [facility] [address] [place] [address], documented in this encounter Visit Diagnoses Diagnosis Schizophrenia, unspecified (CMS/HCC V24, CMS/HCC V28) Other schizoaffective disorders (CMS/HCC V24, CMS/HCC V28) Major depressive disorder, single episode, moderate (CMS/HCC V24, CMS/HCC V28) Major depressive disorder, single episode, moderate documented in this encounter Care Teams Anesthesia Attending Relationship Specialty Start Date End Date Naif Mixon MD [address] [place] [address] PCP - General Family Medicine 05/20/24 documented as of this encounter
--- OUTSIDE RECORDS SUMMARY | 2025-02-24 11:09 | XMS_ITS | Encounter Summary ---
Author Organization [facility] Address [address] [place] [phone] Care Team Providers Care Latex Spooler Name Role Phone Naif Mixon MD Primary Care Provider [phone] Encounter Details Date Type Department Care Team (Latest Contact Info) Description 08/14/2024 Lab Requisition [facility] - Main Lab 299 [facility] [place] [address] Naif Mixon MD [address] [place] [address] Schizophrenia, unspecified (CMS/HCC V24, CMS/HCC V28); Other [...] Associated Diagnosis Comments COMPLETE BLOOD COUNT Routine 08/15/2024 9:21 AM EDT Schizophrenia, unspecified (CMS/HCC) Other schizoaffective disorders (CMS/HCC) Major depressive disorder, single episode, moderate (CMS/HCC) BASIC METABOLIC PANEL Routine 08/15/2024 9:21 AM EDT Schizophrenia, unspecified (CMS/HCC) Other schizoaffective disorders (CMS/HCC) Major depressive disorder, single episode, moderate (CMS/HCC) documented in this encounter Results * (ABNORMAL) Basic metabolic panel (08/15/2024 9:21 AM EDT) Sodium 144 133 - 145 mmol/L LAB CHEMISTRY METHOD 08/15/2024 12:21 PM [facility] Potassium 4.0 3.5 - 5.5 mmol/L LAB CHEMISTRY METHOD 08/15/2024 12:21 PM [facility] Chloride 108 96 - 110 mmol/L LAB CHEMISTRY METHOD 08/15/2024 12:21 PM [facility] CO2 25 21 - 32 mmol/L LAB CHEMISTRY METHOD 08/15/2024 12:21 PM [facility] Anion Gap 11 3 - 11 LAB CHEMISTRY METHOD 08/15/2024 12:21 PM [facility] Glucose 145(H) 70 - 100 mg/dL LAB CHEMISTRY METHOD 08/15/2024 12:21 PM [facility] BUN 28(H) 5 - 25 mg/dL LAB CHEMISTRY METHOD 08/15/2024 12:21 PM [facility] Creatinine 1.00 0.50 - 1.10 mg/dL LAB CHEMISTRY METHOD 08/15/2024 12:21 PM [facility] eGFR 65 >=60 mL/min/1. 73m2 LAB CHEMISTRY METHOD 08/15/2024 12:21 PM [facility] Comment:Calculation based on the Chronic Kidney Disease Epidemiology Collaboration (CKD-EPI) equation refit without adjustment for race. BUN/Creatinine Ratio 28.0 LAB CHEMISTRY METHOD 08/15/2024 12:21 PM [facility] Calcium 9.7 8.5 - 10.5 mg/dL LAB CHEMISTRY METHOD 08/15/2024 12:21 PM [facility] Blood Venous blood specimen / Unknown Venipuncture / Unknown 08/15/2024 9:21 AM EDT 08/15/2024 11:00 AM EDT us Naif Mixon MD LAB BLOOD ORDERABLES Final R esult [facility] [address] [place] [address], * (ABNORMAL) Complete blood count (08/15/2024 9:21 AM EDT) [facility] Signature WBC 4.4(L) 4.8 - 10.8 K/mcL LAB HEMETOLOGY METHOD 08/15/2024 12:47 PM EDT [facility] RBC 4.20 3.80 - 4.80 M/mcL LAB HEMETOLOGY METHOD 08/15/2024 12:47 PM EDT [facility] Hemoglobin 13.0 11.5 - 16.0 g/dL LAB HEMETOLOGY METHOD 08/15/2024 12:47 PM EDT [facility] Hematocrit 38.7 35.0 - 47.0 % LAB HEMETOLOGY METHOD 08/15/2024 12:47 PM EDT [facility] MCV 92.6 79.0 - 98.0 FL LAB HEMETOLOGY METHOD 08/15/2024 12:47 PM EDT [facility] MCH 31.1 27.0 - 32.0 pcg LAB HEMETOLOGY METHOD 08/15/2024 12:47 PM EDT [facility] MCHC 33.6 32.0 - 37.0 g/dL LAB HEMETOLOGY METHOD 08/15/2024 12:47 PM EDT [facility] RDW 13.5 11.0 - 15.0 % LAB HEMETOLOGY METHOD 08/15/2024 12:47 PM EDT [facility] Platelets 199 130 - 400 K/mcL LAB HEMETOLOGY METHOD 08/15/2024 12:47 PM EDT [facility] MPV 9.2 7.0 - 11.0 FL LAB HEMETOLOGY METHOD 08/15/2024 12:47 PM EDT [facility] NRBC 0.0 <1.0 % LAB HEMETOLOGY METHOD 08/15/2024 12:47 PM EDT [facility] NRBC Absolute 0.00 <0.10 K/mcL LAB HEMETOLOGY METHOD 08/15/2024 12:47 PM EDT [facility] Blood Venous blood specimen / Unknown Venipuncture / Unknown 08/15/2024 9:21 AM EDT 08/15/2024 11:00 AM EDT us Naif Mixon MD LAB BLOOD ORDERABLES Final R esult [facility] [address] [place] [address], documented in this encounter Visit Diagnoses Diagnosis Schizophrenia, unspecified (CMS/HCC V24, CMS/HCC V28) Other schizoaffective disorders (CMS/HCC V24, CMS/HCC V28) Major depressive disorder, single episode, moderate (CMS/HCC V24, CMS/HCC V28) Major depressive disorder, single episode, moderate documented in this encounter Care Teams Latex Spooler Relationship Specialty Start Date End Date Naif Mixon MD [address] [place] [address] PCP - General Family Medicine 05/20/24 documented as of this encounter
--- OUTSIDE RECORDS SUMMARY | 2025-02-24 11:09 | XMS_ITS | Encounter Summary ---
Author Organization [facility] Address [address] [place] [phone] Care Team Providers Care Oil Field Operator Name Role Phone Naif Mixon MD Primary Care Provider [phone] Encounter Details Date Type Department Care Team (Late st Contact Info) Description 07/17/2024 Lab Requisition [facility] - Main Lab 299 [facility] [place] [address] Naif Mixon MD [address] [place] [address] Major depressive disorder, single episode, moderate (CMS/HCC V24, CMS/HCC V28); Schizophrenia, unspecified (CMS/HCC V24, CMS/HCC V28) Social [...] Associated Diagnosis Comments COMPLETE BLOOD COUNT Routine 07/18/2024 9:59 AM EST Major depressive disorder, single episode, moderate (CMS/HCC) Schizophrenia, unspecified (CMS/HCC) BASIC METABOLIC PANEL Routine 07/18/2024 9:59 AM EST Major depressive disorder, single episode, moderate (CMS/HCC) Schizophrenia, unspecified (CMS/HCC) documented in this encounter Results * (ABNORMAL) Basic metabolic panel (07/18/2024 9:59 AM EST) Sodium 140 133 - 145 mmol/L LAB CHEMISTRY METHOD 07/18/2024 5:23 PM [facility] Potassium 4.2 3.5 - 5.5 mmol/L LAB CHEMISTRY METHOD 07/18/2024 5:23 PM [facility] Chloride 105 96 - 110 mmol/L LAB CHEMISTRY METHOD 07/18/2024 5:23 PM [facility] CO2 29 21 - 32 mmol/L LAB CHEMISTRY METHOD 07/18/2024 5:23 PM [facility] Anion Gap 6 3 - 11 LAB CHEMISTRY METHOD 07/18/2024 5:23 PM [facility] Glucose 162(H) 70 - 100 mg/dL LAB CHEMISTRY METHOD 07/18/2024 5:23 PM [facility] BUN 22 5 - 25 mg/dL LAB CHEMISTRY METHOD 07/18/2024 5:23 PM [facility] Creatinine 0.93 0.50 - 1.10 mg/dL LAB CHEMISTRY METHOD 07/18/2024 5:23 PM [facility] eGFR 71 >=60 mL/min/1. 73m2 LAB CHEMISTRY METHOD 07/18/2024 5:23 PM [facility] Comment:Calculation based on the Chronic Kidney Disease Epidemiology Collaboration (CKD-EPI) equation refit without adjustment for race. BUN/Creatinine Ratio 23.7 LAB CHEMISTRY METHOD 07/18/2024 5:23 PM [facility] Calcium 9.6 8.5 - 10.5 mg/dL LAB CHEMISTRY METHOD 07/18/2024 5:23 PM [facility] Blood Venous blood specimen / Unknown Venipuncture / Unknown 07/18/2024 9:59 AM EST 07/18/2024 1:37 PM EST us Naif Mixon MD LAB BLOOD ORDERABLES Final R esult [facility] [address] [place] [address], * (ABNORMAL) Complete blood count (07/18/2024 9:59 AM EST) [facility] Signature WBC 4.1(L) 4.8 - 10.8 K/mcL LAB HEMETOLOGY METHOD 07/18/2024 2:58 PM [facility] RBC 3.80 3.80 - 4.80 M/mcL LAB HEMETOLOGY METHOD 07/18/2024 2:58 PM [facility] Hemoglobin 11.7 11.5 - 16.0 g/dL LAB HEMETOLOGY METHOD 07/18/2024 2:58 PM [facility] Hematocrit 36.0 35.0 - 47.0 % LAB HEMETOLOGY METHOD 07/18/2024 2:58 PM [facility] MCV 94.0 79.0 - 98.0 FL LAB HEMETOLOGY METHOD 07/18/2024 2:58 PM [facility] MCH 30.5 27.0 - 32.0 pcg LAB HEMETOLOGY METHOD 07/18/2024 2:58 PM [facility] MCHC 32.5 32.0 - 37.0 g/dL LAB HEMETOLOGY METHOD 07/18/2024 2:58 PM EST [facility] RDW 14.3 11.0 - 15.0 % LAB HEMETOLOGY METHOD 07/18/2024 2:58 PM [facility] Platelets 209 130 - 400 K/mcL LAB HEMETOLOGY METHOD 07/18/2024 2:58 PM [facility] MPV 9.5 7.0 - 11.0 FL LAB HEMETOLOGY METHOD 07/18/2024 2:58 PM [facility] NRBC 0.0 <1.0 % LAB HEMETOLOGY METHOD 07/18/2024 2:58 PM EST [facility] NRBC Absolute 0.00 <0.10 K/mcL LAB HEMETOLOGY METHOD 07/18/2024 2:58 PM EST [facility] Blood Venous blood specimen / Unknown Venipuncture / Unknown 07/18/2024 9:59 AM EST 07/18/2024 1:37 PM EST us Naif Mixon MD LAB BLOOD ORDERABLES Final R esult [facility] [address] [place] [address], documented in this encounter Visit Diagnoses Diagnosis Major depressive disorder, single episode, moderate (CMS/HCC V24, CMS/HCC V28) Major depressive disorder, single episode, moderate Schizophrenia, unspecified (CMS/HCC V24, CMS/HCC V28) documented in this encounter Care Teams Oil Field Operator Relationship Specialty Start Date End Date Naif Mixon MD [address] [place] [address] PCP - General Family Medicine 05/20/24 documented as of this encounter
--- OUTSIDE RECORDS SUMMARY | 2025-02-24 11:09 | XMS_ITS | Encounter Summary ---
Author Organization [facility] Address [address] [place] [phone] Care Team Providers Care Atm Mechanic Name Role Phone Naif Mixon MD Primary Care Provider + [phone] Encounter Details Date Type Department Care Team (Late st Contact Info) Description 07/29/2024 Lab Requisition [facility] - Main Lab [address] [facility] [place] [address] Naif Mixon MD [address] [place] [address] Schizophrenia, unspecified (CMS/HCC V24, CMS/HCC V28); Major depressive disorder, [...] Associated Diagnosis Comments COMPLETE BLOOD COUNT Routine 08/01/2024 5:42 AM EST Schizophrenia, unspecified (CMS/HCC) Major depressive disorder, single episode, moderate (CMS/HCC) BASIC METABOLIC PANEL Routine 08/01/2024 5:42 AM EST Schizophrenia, unspecified (CMS/HCC) Major depressive disorder, single episode, moderate (CMS/HCC) documented in this encounter Results * Basic metabolic panel (08/01/2024 5:42 AM EST) Sodium 142 133 - 145 mmol/L LAB CHEMISTRY METHOD 08/01/2024 11:42 AM [facility] Potassium 4.4 3.5 - 5.5 mmol/L LAB CHEMISTRY METHOD 08/01/2024 11:42 AM [facility] Chloride 108 96 - 110 mmol/L LAB CHEMISTRY METHOD 08/01/2024 11:42 AM [facility] CO2 27 21 - 32 mmol/L LAB CHEMISTRY METHOD 08/01/2024 11:42 AM [facility] Anion Gap 7 3 - 11 LAB CHEMISTRY METHOD 08/01/2024 11:42 AM [facility] Glucose 94 70 - 100 mg/dL LAB CHEMISTRY METHOD 08/01/2024 11:42 AM [facility] BUN 25 5 - 25 mg/dL LAB CHEMISTRY METHOD 08/01/2024 11:42 AM [facility] Creatinine 0.84 0.50 - 1.10 mg/dL LAB CHEMISTRY METHOD 08/01/2024 11:42 AM [facility] eGFR 80 >=60 mL/min/1. 73m2 LAB CHEMISTRY METHOD 08/01/2024 11:42 AM [facility] Comment:Calculation based on the Chronic Kidney Disease Epidemiology Collaboration (CKD-EPI) equation refit without adjustment for race. BUN/Creatinine Ratio 29.8 LAB CHEMISTRY METHOD 08/01/2024 11:42 AM [facility] Calcium 9.7 8.5 - 10.5 mg/dL LAB CHEMISTRY METHOD 08/01/2024 11:42 AM [facility] Blood Venous blood specimen / Unknown Venipuncture / Unknown 08/01/2024 5:42 AM EST 08/01/2024 10:54 AM EST Naif Mixon MD LAB BLOOD ORDERABLES Final R esult [facility] [address] [place] [address], * (ABNORMAL) Complete blood count (08/01/2024 5:42 AM EST) [facility] WBC 4.0(L) 4.8 - 10.8 K/mcL LAB HEMETOLOGY METHOD 08/01/2024 12:39 PM EST [facility] RBC 3.90 3.80 - 4.80 M/mcL LAB HEMETOLOGY METHOD 08/01/2024 12:39 PM EST [facility] Hemoglobin 12.0 11.5 - 16.0 g/dL LAB HEMETOLOGY METHOD 08/01/2024 12:39 PM [facility] Hematocrit 38.0 35.0 - 47.0 % LAB HEMETOLOGY METHOD 08/01/2024 12:39 PM EST [facility] MCV 97.4 79.0 - 98.0 FL LAB HEMETOLOGY METHOD 08/01/2024 12:39 PM [facility] MCH 30.8 27.0 - 32.0 pcg LAB HEMETOLOGY METHOD 08/01/2024 12:39 PM [facility] MCHC 31.6(L) 32.0 - 37.0 g/dL LAB HEMETOLOGY METHOD 08/01/2024 12:39 PM EST [facility] RDW 13.9 11.0 - 15.0 % LAB HEMETOLOGY METHOD 08/01/2024 12:39 PM [facility] Platelets 204 130 - 400 K/mcL LAB HEMETOLOGY METHOD 08/01/2024 12:39 PM [facility] MPV 9.5 7.0 - 11.0 FL LAB HEMETOLOGY METHOD 08/01/2024 12:39 PM [facility] NRBC 0.0 <1.0 % LAB HEMETOLOGY METHOD 08/01/2024 12:39 PM EST [facility] NRBC Absolute 0.00 <0.10 K/mcL LAB HEMETOLOGY METHOD 08/01/2024 12:39 PM EST [facility] Blood Venous blood specimen / Unknown Venipuncture / Unknown 08/01/2024 5:42 AM EST 08/01/2024 10:54 AM EST us Naif Mixon MD LAB BLOOD ORDERABLES Final R esult [facility] [address] [place] [address], documented in this encounter Visit Diagnoses Diagnosis Schizophrenia, unspecified (CMS/HCC V24, CMS/HCC V28) Major depressive disorder, single episode, moderate (CMS/HCC V24, CMS/HCC V28) Major depressive disorder, single episode, moderate documented in this encounter Care Teams Atm Mechanic Relationship Specialty Start Date End Date Naif Mixon MD [address] [place] [address] PCP - General Family Medicine 05/20/24 documented as of this encounter
--- OUTSIDE RECORDS SUMMARY | 2025-02-24 11:09 | XMS_ITS | Encounter Summary ---
Author Organization [facility] Address [address] [place] [phone] Care Team Providers Care Central Aisle Cashier Name Role Phone Naif Mixon MD Primary Care Provider [phone] Encounter Details Date Type Department Care Team (Late st Contact Info) Description 04/15/2024 Lab Requisition [facility] - Main Lab [address] [facility] [place] [address] Naif Mixon MD [address] [place] [address] Hypokalemia; Acute kidney failure, unspecified (CMS/HCC V24) [...] Associated Diagnosis Comments COMPLETE BLOOD COUNT Routine 04/18/2024 8:00 AM EST Hypokalemia Acute kidney failure, unspecified (CMS/HCC) BASIC METABOLIC PANEL Routine 04/18/2024 8:00 AM EST Hypokalemia Acute kidney failure, unspecified (CMS/HCC) documented in this encounter Results * Basic metabolic panel (04/18/2024 8:00 AM EST) Sodium 141 133 - 145 mmol/L LAB CHEMISTRY METHOD 04/18/2024 11:[address] [facility] Potassium 3.8 3.5 - 5.5 mmol/L LAB CHEMISTRY METHOD 04/18/2024 11:[address] [facility] Chloride 107 96 - 110 mmol/L LAB CHEMISTRY METHOD 04/18/2024 11:[address] [facility] CO2 25 21 - 32 mmol/L LAB CHEMISTRY METHOD 04/18/2024 11:[address] [facility] Anion Gap 9 3 - 11 LAB CHEMISTRY METHOD 04/18/2024 11:[address] [facility] Glucose 72 70 - 100 mg/dL LAB CHEMISTRY METHOD 04/18/2024 11:[address] [facility] BUN 12 5 - 25 mg/dL LAB CHEMISTRY METHOD 04/18/2024 11:[address] [facility] Creatinine 0.58 0.50 - 1.10 mg/dL LAB CHEMISTRY METHOD 04/18/2024 11:[address] [facility] eGFR 104 >=60 mL/min/1. 73m2 LAB CHEMISTRY METHOD 04/18/2024 11:[address] [facility] Comment:Calculation based on the Chronic Kidney Disease Epidemiology Collaboration (CKD-EPI) equation refit without adjustment for race. BUN/Creatinine Ratio 20.7 LAB CHEMISTRY METHOD 04/18/2024 11:[address] [facility] Calcium 8.5 8.5 - 10.5 mg/dL LAB CHEMISTRY METHOD 04/18/2024 11:[address] [facility] Blood Venous blood specimen / Unknown Venipuncture / Unknown 04/18/2024 8:00 AM EST 04/18/2024 10:53 AM EST us Naif Mixon MD LAB BLOOD ORDERABLES Final R esult [facility] [address] [place], [place] [address] [phone] * (ABNORMAL) Complete blood count (04/18/2024 8:00 AM EST) [facility] WBC 5.6 4.8 - 10.8 K/mcL LAB HEMETOLOGY METHOD 04/18/2024 11:[address] [facility] RBC 3.00(L) 3.80 - 4.80 M/mcL LAB HEMETOLOGY METHOD 04/18/2024 11:[address] [facility] Hemoglobin 8.4(L) 11.5 - 16.0 g/dL LAB HEMETOLOGY METHOD 04/18/2024 11:[address] [facility] Hematocrit 27.2(L) 35.0 - 47.0 % LAB HEMETOLOGY METHOD 04/18/2024 11:[address] [facility] MCV 91.9 79.0 - 98.0 FL LAB HEMETOLOGY METHOD 04/18/2024 11:[address] [facility] MCH 28.4 27.0 - 32.0 pcg LAB HEMETOLOGY METHOD 04/18/2024 11:[address] [facility] MCHC 30.9(L) 32.0 - 37.0 g/dL LAB HEMETOLOGY METHOD 04/18/2024 11:[address] [facility] RDW 16.1(H) 11.0 - 15.0 % LAB HEMETOLOGY METHOD 04/18/2024 11:[address] [facility] Platelets 331 130 - 400 K/mcL LAB HEMETOLOGY METHOD 04/18/2024 11:[address] [facility] MPV 9.5 7.0 - 11.0 FL LAB HEMETOLOGY METHOD 04/18/2024 11:[address] [facility] NRBC 0.0 <1.0 % LAB HEMETOLOGY METHOD 04/18/2024 11:27 AM EST [facility] NRBC Absolute 0.00 <0.10 K/mcL LAB HEMETOLOGY METHOD 04/18/2024 11:27 AM EST [facility] Blood Venous blood specimen / Unknown Venipuncture / Unknown 04/18/2024 8:00 AM EST 04/18/2024 10:53 AM EST us Naif Mixon MD LAB BLOOD ORDERABLES Final R esult [facility] [address] [place] [address], documented in this encounter Visit Diagnoses Diagnosis Hypokalemia Hypopotassemia Acute kidney failure, unspecified (CMS/HCC V24) Acute kidney failure, unspecified documented in this encounter Care Teams Central Aisle Cashier Relationship Specialty Start Date End Date Naif Mixon MD [address] [place] [address] PCP - General Family Medicine 05/20/24 documented as of this encounter
--- OUTSIDE RECORDS SUMMARY | 2025-02-24 11:09 | XMS_ITS | Encounter Summary ---
Author Organization [facility] Address [address] [place] [phone] Care Team Providers Care Presentation Team Member Name Role Phone Naif Mixon MD Primary Care Provider [phone] Encounter Details Date Type Department Care Team (Late st Contact Info) Description 05/14/2024 Lab Requisition [facility] - Main Lab 299 [facility] [place] [address] Naif Mixon MD [address] [place] [address] Hypokalemia; Acute kidney failure, unspecified (CMS/HCC V24) [...] Associated Diagnosis Comments COMPLETE BLOOD COUNT Routine 05/16/2024 6:28 AM EST Hypokalemia Acute kidney failure, unspecified (CMS/HCC) BASIC METABOLIC PANEL Routine 05/16/2024 6:28 AM EST Hypokalemia Acute kidney failure, unspecified (CMS/HCC) documented in this encounter Results * (ABNORMAL) Basic metabolic panel (05/16/2024 6:28 AM EST) Sodium 142 133 - 145 mmol/L LAB CHEMISTRY METHOD 05/16/2024 11:27 AM [facility] Potassium 3.8 3.5 - 5.5 mmol/L LAB CHEMISTRY METHOD 05/16/2024 11:27 AM [facility] Chloride 109 96 - 110 mmol/L LAB CHEMISTRY METHOD 05/16/2024 11:27 AM [facility] CO2 26 21 - 32 mmol/L LAB CHEMISTRY METHOD 05/16/2024 11:27 AM [facility] Anion Gap 7 3 - 11 LAB CHEMISTRY METHOD 05/16/2024 11:27 AM [facility] Glucose 109(H) 70 - 100 mg/dL LAB CHEMISTRY METHOD 05/16/2024 11:27 AM [facility] BUN 14 5 - 25 mg/dL LAB CHEMISTRY METHOD 05/16/2024 11:27 AM [facility] Creatinine 0.62 0.50 - 1.10 mg/dL LAB CHEMISTRY METHOD 05/16/2024 11:27 AM [facility] eGFR 103 >=60 mL/min/1. 73m2 LAB CHEMISTRY METHOD 05/16/2024 11:27 AM [facility] Comment:Calculation based on the Chronic Kidney Disease Epidemiology Collaboration (CKD-EPI) equation refit without adjustment for race. BUN/Creatinine Ratio 22.6 LAB CHEMISTRY METHOD 05/16/2024 11:27 AM [facility] Calcium 8.7 8.5 - 10.5 mg/dL LAB CHEMISTRY METHOD 05/16/2024 11:27 AM [facility] Blood Venous blood specimen / Unknown Venipuncture / Unknown 05/16/2024 6:28 AM EST 05/16/2024 10:29 AM EST us Naif Mixon MD LAB BLOOD ORDERABLES Final R esult [facility] [address] [place] [address], [place] [phone] * (ABNORMAL) Complete blood count (05/16/2024 6:28 AM EST) [facility] Signature WBC 4.6(L) 4.8 - 10.8 K/mcL LAB HEMETOLOGY METHOD 05/16/2024 11:06 AM [facility] RBC 3.10(L) 3.80 - 4.80 M/mcL LAB HEMETOLOGY METHOD 05/16/2024 11:06 AM [facility] Hemoglobin 8.8(L) 11.5 - 16.0 g/dL LAB HEMETOLOGY METHOD 05/16/2024 11:06 AM [facility] Hematocrit 29.0(L) 35.0 - 47.0 % LAB HEMETOLOGY METHOD 05/16/2024 11:06 AM [facility] MCV 93.2 79.0 - 98.0 FL LAB HEMETOLOGY METHOD 05/16/2024 11:06 AM [facility] MCH 28.3 27.0 - 32.0 pcg LAB HEMETOLOGY METHOD 05/16/2024 11:06 AM [facility] MCHC 30.3(L) 32.0 - 37.0 g/dL LAB HEMETOLOGY METHOD 05/16/2024 11:06 AM [facility] RDW 15.9(H) 11.0 - 15.0 % LAB HEMETOLOGY METHOD 05/16/2024 11:06 AM [facility] Platelets 376 130 - 400 K/mcL LAB HEMETOLOGY METHOD 05/16/2024 11:06 AM [facility] MPV 9.1 7.0 - 11.0 FL LAB HEMETOLOGY METHOD 05/16/2024 11:06 AM [facility] NRBC 0.0 <1.0 % LAB HEMETOLOGY METHOD 05/16/2024 11:06 AM [facility] NRBC Absolute 0.00 <0.10 K/mcL LAB HEMETOLOGY METHOD 05/16/2024 11:[address] [facility] Blood Venous blood specimen / Unknown Venipuncture / Unknown 05/16/2024 6:28 AM EST 05/16/2024 10:29 AM EST Naif Mixon MD LAB BLOOD ORDERABLES Final R esult [facility] [address] [place] [address], documented in this encounter Visit Diagnoses Diagnosis Hypokalemia Hypopotassemia Acute kidney failure, unspecified (CMS/HCC V24) Acute kidney failure, unspecified documented in this encounter Care Teams Presentation Team Member Relationship Specialty Start Date End Date Naif Mixon MD [address] [place] [address] PCP - General Family Medicine 05/20/24 documented as of this encounter
--- OUTSIDE RECORDS SUMMARY | 2025-02-24 11:09 | XMS_ITS | Encounter Summary ---
Author Organization [facility] Address [address] [place] [phone] Phone Care Team Providers Care Clinical Specialist Vascular Name Role Phone Stacey Reis MD Primary Care Provider + [phone] Waylon Crespo MD Unavailable [phone] Waylon Crespo MD Unavailable [phone] Stacey Reis MD Unavailable [phone] Romain Bolanos BB SHOT PACKER Unavailable [email or web address] Yomi Bass MD Unavailable [phone] Keny Govea BB SHOT PACKER Unavailable [phone] Unknown, Unknown Primary Care Provider Yomi Gray MD Unavailable [phone] Alba Harmon MD Unavailable [phone] Pcp, Unknown Primary Care Provider Unavailabl e Encounter Details Date Type Department Care Team (Late st Contact Info) Description 11/07/2021 Telephone [facility] [address] [place], [place] [id number] Stacey Reis MD [address] [place] [address] [email or web address] Social History Tobacco Use Types Packs/Day Years [...] Answer Date Recorded Are you interested in help w ith more adult education (for example, completing high school, GED, job training, learning the Thai language, technical skills, or developing parenting skills)? No 04/24/2021 Food Answer Date Recorded Within the past [...] basis, and looking for work? No 04/24/2021 Comments No Sex and Gender Information Value Date Recorded Sex Assigned at Not on file Legal Sex Female 8:11 PM EST Gender Identity Not on file Sexual Orientation Not on file documented as of this encounter Plan of Treatment Upcoming Encounters Date Type Department Care Team (Late st Contact Info) Description 05/16/2025 6:00 AM EST [facility] [address] [place] [address] documented as of this encounter Goals Goal Patient Goal Type Associated Problems Recent Progress Patient-Stated? Author Develop a trusting relationship with Care Management Program Care Plan Chronic Condition Self-Management No Beryl Shirley BB SHOT PACKER documented as of this encounter Visit Diagnoses Not on filedocumented in this encounter Additional Health Concerns Active Problems Noted Date Diagnosed Date Chronic Condition Self-Management 02/08/2020 Assessment Noted Time PHQ-2 Depression Total Score: 1 04/24/20 21 1:29 PM EST documented as of this encounter Care Teams Clinical Specialist Vascular Relationship Specialty Start Date End Date Stacey Reis MD [email or web address] PCP - General 03/11/14 02/16/22 Waylon Crespo MD [address] [place] [address] [place] [phone] [email or web address] PCP - Resident PCP 11/30/1811/29 Yomi Bass MD [address] [place] [id number] [email or web address] PCP - Resident PCP 11/30/21 02/16/22 Unknown, German, PCP - General 03/03/22 11/16/23 Pcp, Unknown PCP - General 11/17/23 Waylon Crespo MD [address] [place] [address] [place] [phone] [email or web address] Attributed Provider 01/08/19 07/12/22 Stacey Reis MD [address] [place] [id number] [email or web address] Insurance Assigned Provider 09/14/1909/13/22 Romain Bolanos LICSW [address] [place] [address] [email or web address] Work 07/19/21 Keny Govea, BB SHOT PACKER [address] [place] [address] [email or web address] Social Work 01/03/22 Yomi Bass MD 15 [facility] [address] [place] [address] [email or web address] Partners Attributed Provider 07/12/22 06/13/23 Alba Harmon MD 50 [facility], 10th Floor, [address] [place] [address] [address] [place] [address] [email or web address] Insurance Assigned Provider 09/13/22 documented as of this encounter Additional Source Comments The information contained in this document represents components of the legal health record. It is not the complete legal health record.[facility]
--- OUTSIDE RECORDS SUMMARY | 2025-02-24 11:09 | XMS_ITS | Encounter Summary ---
Author Organization [facility] Address [address] [place] [phone] Care Team Providers Care Possum Trapper Name Role Phone Naif Mixon MD Primary Care Provider [phone] Encounter Details Date Type Department Care Team (Late st Contact Info) Description 04/29/2024 Lab Requisition [facility] - Main Lab 299 [facility] [place] [address] Naif Mixon MD [address] [place] [address] Hypokalemia; Acute kidney failure, unspecified (CMS/HCC V24) [...] Associated Diagnosis Comments COMPLETE BLOOD COUNT Routine 05/02/2024 6:22 AM EST Hypokalemia Acute kidney failure, unspecified (CMS/HCC) BASIC METABOLIC PANEL Routine 05/02/2024 6:22 AM EST Hypokalemia Acute kidney failure, unspecified (CMS/HCC) documented in this encounter Results * (ABNORMAL) Basic metabolic panel (05/02/2024 6:22 AM EST) Sodium 144 133 - 145 mmol/L LAB CHEMISTRY METHOD 05/02/2024 10:30 AM [facility] Potassium 3.9 3.5 - 5.5 mmol/L LAB CHEMISTRY METHOD 05/02/2024 10:30 AM [facility] Chloride 111(H) 96 - 110 mmol/L LAB CHEMISTRY METHOD 05/02/2024 10:30 AM [facility] CO2 26 21 - 32 mmol/L LAB CHEMISTRY METHOD 05/02/2024 10:30 AM [facility] Anion Gap 7 3 - 11 LAB CHEMISTRY METHOD 05/02/2024 10:30 AM [facility] Glucose 80 70 - 100 mg/dL LAB CHEMISTRY METHOD 05/02/2024 10:30 AM [facility] BUN 14 5 - 25 mg/dL LAB CHEMISTRY METHOD 05/02/2024 10:30 AM [facility] Creatinine 0.50 0.50 - 1.10 mg/dL LAB CHEMISTRY METHOD 05/02/2024 10:30 AM [facility] eGFR 108 >=60 mL/min/1. 73m2 LAB CHEMISTRY METHOD 05/02/2024 10:30 AM [facility] Comment:Calculation based on the Chronic Kidney Disease Epidemiology Collaboration (CKD-EPI) equation refit without adjustment for race. BUN/Creatinine Ratio 28.0 LAB CHEMISTRY METHOD 05/02/2024 10:30 AM [facility] Calcium 8.3(L) 8.5 - 10.5 mg/dL LAB CHEMISTRY METHOD 05/02/2024 10:30 AM [facility] Blood Venous blood specimen / Unknown Venipuncture / Unknown 05/02/2024 6:22 AM EST 05/02/2024 9:28 AM EST us Naif Mixon MD LAB BLOOD ORDERABLES Final R esult [facility] [address] [place] [address], * (ABNORMAL) Complete blood count (05/02/2024 6:22 AM EST) [facility] WBC 4.9 4.8 - 10.8 K/mcL LAB HEMETOLOGY METHOD 05/02/2024 10:07 AM [facility] RBC 2.80(L) 3.80 - 4.80 M/mcL LAB HEMETOLOGY METHOD 05/02/2024 10:07 AM [facility] Hemoglobin 7.9(L) 11.5 - 16.0 g/dL LAB HEMETOLOGY METHOD 05/02/2024 10:07 AM [facility] Hematocrit 26.5(L) 35.0 - 47.0 % LAB HEMETOLOGY METHOD 05/02/2024 10:07 AM [facility] MCV 95.7 79.0 - 98.0 FL LAB HEMETOLOGY METHOD 05/02/2024 10:07 AM [facility] MCH 28.5 27.0 - 32.0 pcg LAB HEMETOLOGY METHOD 05/02/2024 10:07 AM [facility] MCHC 29.8(L) 32.0 - 37.0 g/dL LAB HEMETOLOGY METHOD 05/02/2024 10:07 AM [facility] RDW 16.3(H) 11.0 - 15.0 % LAB HEMETOLOGY METHOD 05/02/2024 10:07 AM [facility] Platelets 315 130 - 400 K/mcL LAB HEMETOLOGY METHOD 05/02/2024 10:07 AM [facility] MPV 9.5 7.0 - 11.0 FL LAB HEMETOLOGY METHOD 05/02/2024 10:07 AM [facility] NRBC 0.0 <1.0 % LAB HEMETOLOGY METHOD 05/02/2024 10:07 AM [facility] NRBC Absolute 0.00 <0.10 K/mcL LAB HEMETOLOGY METHOD 05/02/2024 10:07 AM EST [facility] Blood Venous blood specimen / Unknown Venipuncture / Unknown 05/02/2024 6:22 AM EST 05/02/2024 9:28 AM EST Naif Mixon MD LAB BLOOD ORDERABLES Final R esult [facility] [address] [place] [address], documented in this encounter Visit Diagnoses Diagnosis Hypokalemia Hypopotassemia Acute kidney failure, unspecified (CMS/HCC V24) Acute kidney failure, unspecified documented in this encounter Care Teams Possum Trapper Relationship Specialty Start Date End Date Naif Mixon MD [address] [place] [address] PCP - General Family Medicine 05/20/24 documented as of this encounter
--- OUTSIDE RECORDS SUMMARY | 2025-02-24 11:09 | XMS_ITS | Encounter Summary ---
Author Organization [facility] Address [address] [place] [address] Care Team Providers Care Claim Service Representative Name Role Phone Naif Mixon MD Primary Care Provider [phone] Encounter Details Date Type Department Care Team (Late st Contact Info) Description 04/22/2024 Lab Requisition [facility] - Main Lab 299 [facility] [place] [address] Naif Mixon MD [address] [place] [address] Hypokalemia; Acute kidney failure, unspecified (CMS/HCC V24) [...] Associated Diagnosis Comments COMPLETE BLOOD COUNT Routine 04/25/2024 7:49 AM EST Hypokalemia Acute kidney failure, unspecified (CMS/HCC) BASIC METABOLIC PANEL Routine 04/25/2024 7:49 AM EST Hypokalemia Acute kidney failure, unspecified (CMS/HCC) documented in this encounter Results * Basic metabolic panel (04/25/2024 7:49 AM EST) Sodium 140 133 - 145 mmol/L LAB CHEMISTRY METHOD 04/25/2024 1:22 PM [facility] Potassium 4.2 3.5 - 5.5 mmol/L LAB CHEMISTRY METHOD 04/25/2024 1:22 PM [facility] Chloride 106 96 - 110 mmol/L LAB CHEMISTRY METHOD 04/25/2024 1:22 PM [facility] CO2 23 21 - 32 mmol/L LAB CHEMISTRY METHOD 04/25/2024 1:22 PM [facility] Anion Gap 11 3 - 11 LAB CHEMISTRY METHOD 04/25/2024 1:22 PM [facility] Glucose 85 70 - 100 mg/dL LAB CHEMISTRY METHOD 04/25/2024 1:22 PM [facility] BUN 20 5 - 25 mg/dL LAB CHEMISTRY METHOD 04/25/2024 1:22 PM [facility] Creatinine 0.71 0.50 - 1.10 mg/dL LAB CHEMISTRY METHOD 04/25/2024 1:22 PM [facility] eGFR 98 >=60 mL/min/1. 73m2 LAB CHEMISTRY METHOD 04/25/2024 1:22 PM [facility] Comment:Calculation based on the Chronic Kidney Disease Epidemiology Collaboration (CKD-EPI) equation refit without adjustment for race. BUN/Creatinine Ratio 28.2 LAB CHEMISTRY METHOD 04/25/2024 1:22 PM [facility] Calcium 8.8 8.5 - 10.5 mg/dL LAB CHEMISTRY METHOD 04/25/2024 1:22 PM [facility] Blood Venous blood specimen / Unknown Venipuncture / Unknown 04/25/2024 7:49 AM EST 04/25/2024 10:52 AM EST us Naif Mixon MD LAB BLOOD ORDERABLES Final R esult [facility] [address] [place], [place] [address] [phone] * (ABNORMAL) Complete blood count (04/25/2024 7:49 AM EST) [facility] WBC 6.7 4.8 - 10.8 K/mcL LAB HEMETOLOGY METHOD 04/25/2024 11:57 AM [facility] RBC 3.00(L) 3.80 - 4.80 M/mcL LAB HEMETOLOGY METHOD 04/25/2024 11:57 AM [facility] Hemoglobin 8.6(L) 11.5 - 16.0 g/dL LAB HEMETOLOGY METHOD 04/25/2024 11:57 AM [facility] Hematocrit 28.0(L) 35.0 - 47.0 % LAB HEMETOLOGY METHOD 04/25/2024 11:57 AM [facility] MCV 93.0 79.0 - 98.0 FL LAB HEMETOLOGY METHOD 04/25/2024 11:57 AM [facility] MCH 28.6 27.0 - 32.0 pcg LAB HEMETOLOGY METHOD 04/25/2024 11:57 AM [facility] MCHC 30.7(L) 32.0 - 37.0 g/dL LAB HEMETOLOGY METHOD 04/25/2024 11:57 AM [facility] RDW 16.2(H) 11.0 - 15.0 % LAB HEMETOLOGY METHOD 04/25/2024 11:57 AM [facility] Platelets 325 130 - 400 K/mcL LAB HEMETOLOGY METHOD 04/25/2024 11:57 AM [facility] MPV 9.6 7.0 - 11.0 FL LAB HEMETOLOGY METHOD 04/25/2024 11:57 AM [facility] NRBC 0.0 <1.0 % LAB HEMETOLOGY METHOD 04/25/2024 11:57 AM EST [facility] NRBC Absolute 0.00 <0.10 K/mcL LAB HEMETOLOGY METHOD 04/25/2024 11:57 AM EST [facility] Blood Venous blood specimen / Unknown Venipuncture / Unknown 04/25/2024 7:49 AM EST 04/25/2024 10:52 AM EST us Naif Mixon MD LAB BLOOD ORDERABLES Final R esult [facility] [address] [place] [address], documented in this encounter Visit Diagnoses Diagnosis Hypokalemia Hypopotassemia Acute kidney failure, unspecified (CMS/HCC V24) Acute kidney failure, unspecified documented in this encounter Care Teams Claim Service Representative Relationship Specialty Start Date End Date Naif Mixon MD [address] [place] [address] PCP - General Family Medicine 05/20/24 documented as of this encounter
--- OUTSIDE RECORDS SUMMARY | 2025-02-24 11:09 | XMS_ITS | Encounter Summary ---
Author Organization [facility] Address [address] [place] [address] Care Team Providers Care Stem Mounter Name Role Phone Naif Mixon MD Primary Care Provider [phone] Encounter Details Date Type Department Care Team (Latest Contact Info) Description 08/27/[address] [facility] - Main Lab 299 [facility] [place] [address] Naif Mixon MD [address] [place] [phone] Schizophrenia, unspecified ([facility] V24, CMS/[facility] V28); Other schizoaffective disorders (CMS/HCC V24, CMS/HCC [...] on file documented as of this encounter Visit Diagnoses Diagnosis Schizophrenia, unspecified (CMS/HCC V24, CMS/HCC V28) Other schizoaffective disorders (CMS/HCC V24, CMS/HCC V28) Major depressive disorder, single episode, moderate (CMS/HCC V24, CMS/HCC V28) Major depressive disorder, single episode, moderate documented in this encounter Care Teams Stem Mounter Relationship Specialty Start Date End Date Naif Mixon MD [address] [place] [id number] PCP - General Family Medicine 05/20/24 documented as of this encounter
--- OUTSIDE RECORDS SUMMARY | 2025-02-24 11:09 | XMS_ITS | Encounter Summary ---
Author Organization [facility] Address [address] [place] [address] Care Team Providers Care Track Announcer Name Role Phone Naif Mixon MD Primary Care Provider [phone] Encounter Details Date Type Department Care Team (Late st Contact Info) Description 06/24/2024 Lab Requisition [facility] - Main Lab 299 [facility] [place] [address] Naif Mixon MD [address] [place] [address] Major depressive disorder, single episode, moderate (CMS/HCC [...] Associated Diagnosis Comments COMPLETE BLOOD COUNT Routine 06/27/2024 7:51 AM EST Major depressive disorder, single episode, moderate (CMS/HCC) Schizophrenia, unspecified (CMS/HCC) BASIC METABOLIC PANEL Routine 06/27/2024 7:51 AM EST Major depressive disorder, single episode, moderate (CMS/HCC) Schizophrenia, unspecified (CMS/HCC) documented in this encounter Results * Basic metabolic panel (06/27/2024 7:51 AM EST) Sodium 141 133 - 145 mmol/L LAB CHEMISTRY METHOD 06/27/2024 11:47 AM [facility] Potassium 4.2 3.5 - 5.5 mmol/L LAB CHEMISTRY METHOD 06/27/2024 11:47 AM [facility] Chloride 110 96 - 110 mmol/L LAB CHEMISTRY METHOD 06/27/2024 11:47 AM [facility] CO2 26 21 - 32 mmol/L LAB CHEMISTRY METHOD 06/27/2024 11:47 AM [facility] Anion Gap 5 3 - 11 LAB CHEMISTRY METHOD 06/27/2024 11:47 AM [facility] Glucose 100 70 - 100 mg/dL LAB CHEMISTRY METHOD 06/27/2024 11:47 AM [facility] BUN 23 5 - 25 mg/dL LAB CHEMISTRY METHOD 06/27/2024 11:47 AM [facility] Creatinine 0.86 0.50 - 1.10 mg/dL LAB CHEMISTRY METHOD 06/27/2024 11:47 AM [facility] eGFR 77 >=60 mL/min/1. 73m2 LAB CHEMISTRY METHOD 06/27/2024 11:47 AM [facility] Comment:Calculation based on the Chronic Kidney Disease Epidemiology Collaboration (CKD-EPI) equation refit without adjustment for race. BUN/Creatinine Ratio 26.7 LAB CHEMISTRY METHOD 06/27/2024 11:47 AM [facility] Calcium 8.6 8.5 - 10.5 mg/dL LAB CHEMISTRY METHOD 06/27/2024 11:47 AM [facility] Blood Venous blood specimen / Unknown Venipuncture / Unknown 06/27/2024 7:51 AM EST 06/27/2024 9:53 AM EST Naif Mixon MD LAB BLOOD ORDERABLES Final R esult [facility] [address] [place] [address], * (ABNORMAL) Complete blood count (06/27/2024 7:51 AM EST) WBC 4.6(L) 4.8 - 10.8 K/mcL LAB HEMETOLOGY METHOD 06/27/2024 11:03 AM [facility] RBC 3.60(L) 3.80 - 4.80 M/mcL LAB HEMETOLOGY METHOD 06/27/2024 11:03 AM [facility] Hemoglobin 10.8(L) 11.5 - 16.0 g/dL LAB HEMETOLOGY METHOD 06/27/2024 11:03 AM [facility] Hematocrit 34.1(L) 35.0 - 47.0 % LAB HEMETOLOGY METHOD 06/27/2024 11:03 AM [facility] MCV 95.8 79.0 - 98.0 FL LAB HEMETOLOGY METHOD 06/27/2024 11:03 AM [facility] MCH 30.3 27.0 - 32.0 pcg LAB HEMETOLOGY METHOD 06/27/2024 11:03 AM [facility] MCHC 31.7(L) 32.0 - 37.0 g/dL LAB HEMETOLOGY METHOD 06/27/2024 11:03 AM [facility] RDW 15.1(H) 11.0 - 15.0 % LAB HEMETOLOGY METHOD 06/27/2024 11:03 AM [facility] Platelets 226 130 - 400 K/mcL LAB HEMETOLOGY METHOD 06/27/2024 11:03 AM [facility] MPV 9.8 7.0 - 11.0 FL LAB HEMETOLOGY METHOD 06/27/2024 11:03 AM EST [facility] NRBC 0.0 <1.0 % LAB HEMETOLOGY METHOD 06/27/2024 11:03 AM EST [facility] NRBC Absolute 0.00 <0.10 K/mcL LAB HEMETOLOGY METHOD 06/27/2024 11:03 AM EST [facility] Blood Venous blood specimen / Unknown Venipuncture / Unknown 06/27/2024 7:51 AM EST 06/27/2024 9:53 AM EST us Naif Mixon MD LAB BLOOD ORDERABLES Final R esult [facility] [address] [place] [address], documented in this encounter Visit Diagnoses Diagnosis Major depressive disorder, single episode, moderate (CMS/HCC V24, CMS/HCC V28) Major depressive disorder, single episode, moderate Schizophrenia, unspecified (CMS/HCC V24, CMS/HCC V28) documented in this encounter Care Teams Track Announcer Relationship Specialty Start Date End Date Naif Mixon MD [address] [place] [address] PCP - General Family Medicine 05/20/24 documented as of this encounter
--- OUTSIDE RECORDS SUMMARY | 2025-02-24 11:09 | XMS_ITS | Encounter Summary ---
Author Organization [facility] Address [address] [place] [phone] Phone Care Team Providers Care Services Account Manager Name Role Phone Stacey Reis MD Primary Care Provider [phone] Waylon Crespo MD Unavailable [phone] Waylon Crespo MD Unavailable [phone] Stacey Reis MD Unavailable [phone] Beryl Shirley RESIDUE FURNACE OPERATOR Unavailable [phone] Kaleigh Adams RESIDUE FURNACE OPERATOR Unavailable [phone] Catrina Lee RESIDUE FURNACE OPERATOR Unavailable + [phone] Romain Bolanos RESIDUE FURNACE OPERATOR Unavailable [email or web address] Yomi Bass MD Unavailable [phone] Keny Govea RESIDUE FURNACE OPERATOR Unavailable [phone] Unknown, Unknown Primary Care Provider Yomi Gray MD Unavailable [phone] Alba Harmon MD Unavailable [phone] Pcp, Unknown Primary Care Provider Unavailabl e Encounter Details Date Type Department Care Team (Late st Contact Info) Description 05/22/2020 Procedure Pass [facility] [address] [facility] [address] [place], [place] [id number] Social History Tobacco Use Types Packs/Day Years Used Date Smoking Tobacco: Every Day Cigarettes Smokeless Tobacco: Never Comments:2 per day Alcohol Use Standard Drinks/Week Comments Yes 0 (1 standard drink = 0.6 oz pur e alcohol) 2 per month - seldom Comments No Sex and Gender Information Value Date Recorded Sex Assigned at Not on file Legal Sex Female 8:11 PM EST Gender Identity Not on file Sexual Orientation Not on file documented as of this encounter Plan of Treatment Upcoming Encounters Date Type Department Care Team (Late st Contact Info) Description 05/16/2025 6:00 AM EST [facility] [address] [place] [address] documented as of this encounter Goals Goal Patient Goal Type Associated Problems Recent Progress Patient-Stated? Author Develop a trusting relationship with Care Management Program Care Plan Chronic Condition Self-Management Beryl Worthington LICSW documented as of this encounter Visit Diagnoses Not on filedocumented in this encounter Additional Health Concerns Active Problems Noted Date Diagnosed Date Chronic Condition Self-Management 02/08/2020 Assessment Noted Time PHQ-2 Depression Total Score: 0 03/25/20 17 1:47 PM EDT documented as of this encounter Care Teams Services Account Manager Relationship Specialty Start Date End Date Stacey Reis MD [email or web address] PCP - General 03/11/14 02/16/22 Waylon Crespo MD [address] [facility] [address] [place] [address] [email or web address] PCP - Resident PCP 11/30/1811/29 Yomi Bass MD 15 [facility] [address] [place] [address] [email or web address] PCP - Resident PCP 11/30/21 02/16/22 German Porter MD PCP - General 03/03/22 11/16/23 Pcp, Unknown PCP - General 11/17/23 Waylon Crespo MD [address] [place] [address] [address] [place] [address] [email or web address] Attributed Provider 01/08/19 07/12/22 Stacey Reis MD [address] [place] [address] [email or web address] Insurance Assigned Provider 09/14/1909/13/22 Beryl Shirley, [address] [address] [email or web address] Work 01/24/20 07/16/20 Kaleigh Adams [facility] [address] [place] [address] [email or web address] Driver'S Education Instructor 06/06/20 07/31/20 Catrina Lee [facility] [address] [place], [place] [phone] [email or web address] Work 07/17/20 07/18/21 Romain Bolanos, [address] [phone] [email or web address] 07/19/21 Keny Govea, [facility] [address] [place] [address] [email or web address] 01/03/22 Yomi Bass MD 15 [facility] [address] [place] [address] [email or web address] Attributed Provider 07/12/22 06/13/23 Alba Harmon MD [address] [place] [address], [address] Floor, [address] [facility]50 [address] [place] [address] [email or web address] Insurance Assigned Provider 09/13/22 documented as of this encounter Additional Source Comments The information contained in this document represents components of the legal health record. It is not the complete legal health record.[facility]
--- OUTSIDE RECORDS SUMMARY | 2025-02-24 11:09 | XMS_ITS | Encounter Summary ---
Author Organization [facility] Address [address] [place] [address] Care Team Providers Care Digital Media Representative Name Role Phone Naif Mixon MD Primary Care Provider [phone] Encounter Details Date Type Department Care Team (Late st Contact Info) Description 05/20/2024 Lab Requisition [facility] - Main Lab 299 [facility] [place] [address] Naif Mixon MD [address] [place] [address] Hypokalemia; Acute kidney failure, unspecified (CMS/HCC V24) [...] as of this encounter Visit Diagnoses Diagnosis Hypokalemia Hypopotassemia Acute kidney failure, unspecified (CMS/HCC V24) Acute kidney failure, unspecified documented in this encounter Care Teams Digital Media Representative Relationship Specialty Start Date End Date Naif Mixon MD [address] [place] [address] PCP - General Family Medicine 05/20/24 documented as of this encounter
--- OUTSIDE RECORDS SUMMARY | 2025-02-24 11:09 | XMS_ITS | Encounter Summary ---
Author Organization [facility] Address [address] [place] [id number] Care Team Providers Care Aerial Advertiser Name Role Phone Naif Mixon MD Primary Care Provider [phone] Encounter Details Date Type Department Care Team (Latest Contact Info) Description 08/06/2024 Lab Requisition [facility] - Main Lab [address] [facility] [place] [address] Naif Mixon MD [address] [place] [address] Schizophrenia, unspecified (CMS/HCC V24, CMS/HCC V28); Other [...] Associated Diagnosis Comments COMPLETE BLOOD COUNT Routine 08/08/2024 9:13 AM EST Schizophrenia, unspecified (CMS/HCC) Other schizoaffective disorders (CMS/HCC) Major depressive disorder, single episode, moderate (CMS/HCC) BASIC METABOLIC PANEL Routine 08/08/2024 9:13 AM EST Schizophrenia, unspecified (CMS/HCC) Other schizoaffective disorders (CMS/HCC) Major depressive disorder, single episode, moderate (CMS/HCC) documented in this encounter Results * (ABNORMAL) Basic metabolic panel (08/08/2024 9:13 AM EST) Sodium 140 133 - 145 mmol/L LAB CHEMISTRY METHOD 08/08/2024 1:45 PM [facility] Potassium 4.3 3.5 - 5.5 mmol/L LAB CHEMISTRY METHOD 08/08/2024 1:45 PM [facility] Chloride 106 96 - 110 mmol/L LAB CHEMISTRY METHOD 08/08/2024 1:45 PM [facility] CO2 25 21 - 32 mmol/L LAB CHEMISTRY METHOD 08/08/2024 1:45 PM [facility] Anion Gap 9 3 - 11 LAB CHEMISTRY METHOD 08/08/2024 1:45 PM [facility] Glucose 125(H) 70 - 100 mg/dL LAB CHEMISTRY METHOD 08/08/2024 1:45 PM [facility] BUN 27(H) 5 - 25 mg/dL LAB CHEMISTRY METHOD 08/08/2024 1:45 PM [facility] Creatinine 0.89 0.50 - 1.10 mg/dL LAB CHEMISTRY METHOD 08/08/2024 1:45 PM [facility] eGFR 74 >=60 mL/min/1. 73m2 LAB CHEMISTRY METHOD 08/08/2024 1:45 PM [facility] Comment:Calculation based on the Chronic Kidney Disease Epidemiology Collaboration (CKD-EPI) equation refit without adjustment for race. BUN/Creatinine Ratio 30.3 LAB CHEMISTRY METHOD 08/08/2024 1:45 PM [facility] Calcium 9.3 8.5 - 10.5 mg/dL LAB CHEMISTRY METHOD 08/08/2024 1:45 PM [facility] Blood Venous blood specimen / Unknown Venipuncture / Unknown 08/08/2024 9:13 AM EST 08/08/2024 11:49 AM EST us Naif Mixon MD LAB BLOOD ORDERABLES Final R esult [facility] [address] [place] [address], [place] [phone] * (ABNORMAL) Complete blood count (08/08/2024 9:13 AM EST) WBC 3.5(L) 4.8 - 10.8 K/mcL LAB HEMETOLOGY METHOD 08/08/2024 1:34 PM [facility] RBC 3.80 3.80 - 4.80 M/mcL LAB HEMETOLOGY METHOD 08/08/2024 1:34 PM [facility] Hemoglobin 11.6 11.5 - 16.0 g/dL LAB HEMETOLOGY METHOD 08/08/2024 1:34 PM [facility] Hematocrit 36.1 35.0 - 47.0 % LAB HEMETOLOGY METHOD 08/08/2024 1:34 PM [facility] MCV 96.3 79.0 - 98.0 FL LAB HEMETOLOGY METHOD 08/08/2024 1:34 PM [facility] MCH 30.9 27.0 - 32.0 pcg LAB HEMETOLOGY METHOD 08/08/2024 1:34 PM [facility] MCHC 32.1 32.0 - 37.0 g/dL LAB HEMETOLOGY METHOD 08/08/2024 1:34 PM [facility] RDW 13.5 11.0 - 15.0 % LAB HEMETOLOGY METHOD 08/08/2024 1:34 PM [facility] Platelets 191 130 - 400 K/mcL LAB HEMETOLOGY METHOD 08/08/2024 1:34 PM [facility] MPV 9.6 7.0 - 11.0 FL LAB HEMETOLOGY METHOD 08/08/2024 1:34 PM EST [facility] NRBC 0.0 <1.0 % LAB HEMETOLOGY METHOD 08/08/2024 1:34 PM EST [facility] NRBC Absolute 0.00 <0.10 K/mcL LAB HEMETOLOGY METHOD 08/08/2024 1:34 PM EST [facility] Blood Venous blood specimen / Unknown Venipuncture / Unknown 08/08/2024 9:13 AM EST 08/08/2024 11:46 AM EST us Naif Mixon MD LAB BLOOD ORDERABLES Final R esult [facility] [address] [place] [address], documented in this encounter Visit Diagnoses Diagnosis Schizophrenia, unspecified (CMS/HCC V24, CMS/HCC V28) Other schizoaffective disorders (CMS/HCC V24, CMS/HCC V28) Major depressive disorder, single episode, moderate (CMS/HCC V24, CMS/HCC V28) Major depressive disorder, single episode, moderate documented in this encounter Care Teams Aerial Advertiser Relationship Specialty Start Date End Date Naif Mixon MD [address] [place] [address] PCP - General Family Medicine 05/20/24 documented as of this encounter
--- OUTSIDE RECORDS SUMMARY | 2025-02-24 11:09 | XMS_ITS | Encounter Summary ---
Author Organization [facility] Address [address] [place] [phone] Care Team Providers Care Electrician Journeyman Wireman Name Role Phone Naif Mixon MD Primary Care Provider [phone] Encounter Details Date Type Department Care Team (Late st Contact Info) Description 05/06/2024 Lab Requisition [facility] - Main Lab [address] [facility] [place] [address] Naif Mixon MD [address] [place] [address] Hypothyroidism, unspecified; Hypokalemia; Acute kidney failure, unspecified (CMS/HCC V24) [...] Associated Diagnosis Comments COMPLETE BLOOD COUNT Routine 05/09/2024 7:27 AM EST Hypokalemia Acute kidney failure, unspecified (CMS/HCC) Hypothyroidism, unspecified THYROID STIMULATING HORMONE Routine 05/09/2024 7:27 AM EST Hypokalemia Acute kidney failure, unspecified (CMS/HCC) Hypothyroidism, unspecified BASIC METABOLIC PANEL Routine 05/09/2024 7:27 AM EST Hypokalemia Acute kidney failure, unspecified (CMS/HCC) Hypothyroidism, unspecified documented in this encounter Results * Thyroid stimulating hormone (05/09/2024 7:27 AM EST) TSH 1.02 0.40 - 4.00 mcIU/mL LAB CHEMISTRY METHOD 05/09/2024 12:37 PM [facility] Blood Venous blood specimen / Unknown Venipuncture / Unknown 05/09/2024 7:27 AM EST 05/09/2024 10:56 AM EST us Naif Mixon MD LAB BLOOD ORDERABLES Final R esult [facility] [address] [place] [address], * (ABNORMAL) Complete blood count (05/09/2024 7:27 AM EST) Pathologist [facility] WBC 7.3 4.8 - 10.8 K/mcL LAB HEMETOLOGY METHOD 05/09/2024 12:49 PM [facility] RBC 2.90(L) 3.80 - 4.80 M/mcL LAB HEMETOLOGY METHOD 05/09/2024 12:49 PM [facility] Hemoglobin 8.3(L) 11.5 - 16.0 g/dL LAB HEMETOLOGY METHOD 05/09/2024 12:49 PM [facility] Hematocrit 27.4(L) 35.0 - 47.0 % LAB HEMETOLOGY METHOD 05/09/2024 12:49 PM [facility] MCV 93.5 79.0 - 98.0 FL LAB HEMETOLOGY METHOD 05/09/2024 12:49 PM [facility] MCH 28.3 27.0 - 32.0 pcg LAB HEMETOLOGY METHOD 05/09/2024 12:49 PM [facility] MCHC 30.3(L) 32.0 - 37.0 g/dL LAB HEMETOLOGY METHOD 05/09/2024 12:49 PM [facility] RDW 16.5(H) 11.0 - 15.0 % LAB HEMETOLOGY METHOD 05/09/2024 12:49 PM [facility] Platelets 340 130 - 400 K/mcL LAB HEMETOLOGY METHOD 05/09/2024 12:49 PM [facility] MPV 9.4 7.0 - 11.0 FL LAB HEMETOLOGY METHOD 05/09/2024 12:49 PM [facility] NRBC 0.0 <1.0 % LAB HEMETOLOGY METHOD 05/09/2024 12:49 PM [facility] NRBC Absolute 0.00 <0.10 K/mcL LAB HEMETOLOGY METHOD 05/09/2024 12:49 PM [facility] Blood Venous blood specimen / Unknown 05/09/2024 7:27 AM EST 05/09/2024 11:16 AM EST Naif Mixon MD LAB BLOOD ORDERABLES Final R esult [facility] [address] [place] [address], * (ABNORMAL) Basic metabolic panel (05/09/2024 7:27 AM EST) Sodium 140 133 - 145 mmol/L LAB CHEMISTRY METHOD 05/09/2024 12:47 PM [facility] Potassium 4.5 3.5 - 5.5 mmol/L LAB CHEMISTRY METHOD 05/09/2024 12:47 PM [facility] Chloride 107 96 - 110 mmol/L LAB CHEMISTRY METHOD 05/09/2024 12:47 PM [facility] CO2 22 21 - 32 mmol/L LAB CHEMISTRY METHOD 05/09/2024 12:47 PM [facility] Anion Gap 11 3 - 11 LAB CHEMISTRY METHOD 05/09/2024 12:47 PM [facility] Glucose 72 70 - 100 mg/dL LAB CHEMISTRY METHOD 05/09/2024 12:47 PM [facility] BUN 16 5 - 25 mg/dL LAB CHEMISTRY METHOD 05/09/2024 12:47 PM [facility] Creatinine 0.61 0.50 - 1.10 mg/dL LAB CHEMISTRY METHOD 05/09/2024 12:47 PM [facility] eGFR 103 >=60 mL/min/1. 73m2 LAB CHEMISTRY METHOD 05/09/2024 12:47 PM [facility] Comment:Calculation based on the Chronic Kidney Disease Epidemiology Collaboration (CKD-EPI) equation refit without adjustment for race. BUN/Creatinine Ratio 26.2 LAB CHEMISTRY METHOD 05/09/2024 12:47 PM [facility] Calcium 8.4(L) 8.5 - 10.5 mg/dL LAB CHEMISTRY METHOD 05/09/2024 12:47 PM [facility] Blood Venous blood specimen / Unknown Venipuncture / Unknown 05/09/2024 7:27 AM EST 05/09/2024 10:56 AM EST us Naif Mixon MD LAB BLOOD ORDERABLES Final R esult [facility] [address] [place] [address], documented in this encounter Visit Diagnoses Diagnosis Hypothyroidism, unspecified Hypokalemia Hypopotassemia Acute kidney failure, unspecified (CMS/HCC V24) Acute kidney failure, unspecified documented in this encounter Care Teams Electrician Journeyman Wireman Relationship Specialty Start Date End Date Naif Mixon MD [address] [place] [address] PCP - General Family Medicine 05/20/24 documented as of this encounter
--- OUTSIDE RECORDS SUMMARY | 2025-02-24 11:09 | XMS_ITS | Clinical Summary ---
Author Organization [facility] Address [address] [place] [id number] Phone Care Team Providers Care Equipment Processer Storage Name Role Phone Pcp, Unknown Primary Care Provider Unavailabl e Allergies Active Allergy Reactions Criticality Noted Date Comments Albuterol Other (See Comments) 06/03/2012 hyperactivity, worsening of tremor; Medications ipratropium (ATROVENT HFA) 17 mcg/actuation inhaler Inhale 2 puffs into the lungs 4 (four) times a day. 3 Inhaler 3 03/13/20 20 Active atorvastatin (LIPITOR) 20 MG tabletIndications :Atherosclerosis of [place] coronary artery of [place] heart without angina pectoris Take 1 tablet (20 mg total) by mouth daily. 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 48 tablet 2 07/02/19 21 Active benzonatate (TESSALON) 100 MG capsuleIndication s:Dry mouth Take 1 capsule (100 mg total) by mouth 3 (three) times a day as needed for cough. 60 capsule 3 08/30/19 21 Active nicotine polacrilex (COMMIT) [address] 1 lozenge (2 mg total) inside cheek every 30 (thirty) minutes as needed for smoking cessation (max 20 pieces per day). 144 lozenge 6 10/04/19 21 Active Additional Information Patient not taking.Reported on 11/15/2024 amLODIPine (NORVASC) 5 MG tabletIndications :Essential hypertension Take 1 tablet (5 mg total) by mouth daily. 90 tablet 3 05/20/20 21 Active Additional Information Patient not taking.Reported on 11/15/2024 gabapentin (NEURONTIN) 600 MG tabletIndications :Stiff person syndrome Take 1 tablet (600 mg total) by mouth 2 (two) times a day. 180 tablet 3 06/12/19 22 Active fluticasone propion-salmetero L (ADVAIR DISKUS) 250-50 mcg/dose DISKUS Inhale 1 puff into the lungs 2 (two) times a day. 180 each 3 06/12/19 22 Active diazePAM (VALIUM) 10 MG tablet TAKE 1 TABLET BY MOUTH EVERY 12 HOURS NEEDED FOR TREMORS 120 tablet 08/10/19 22 Active DULoxetine (CYMBALTA) 60 MG capsuleIndication s:Stiff person syndrome Take 1 capsule (60 mg total) by mouth daily. 90 capsule 3 08/31/19 22 Active Additional Information Patient not taking.Reported on 11/15/2024 ibuprofen (ADVIL,MOTRIN) 800 MG tablet TAKE 1 TABLET BY MOUTH EVERY 8 HOURS NEEDED 90 tablet 09/11/19 22 Active baclofen (LIORESAL) 10 MG tabletIndications :Stiff person syndrome TAKE 1 TABLET (10 MG TOTAL) BY MOUTH 2 (TWO) TIMES A DAY NEEDED. 90 tablet 3 10/11/19 22 Active QUEtiapine (SEROQUEL) 25 MG tablet by abdominal subcutaneous route 2 (two) times a day. 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 90 tablet 3 11/26/19 23 Active Additional Information Patient not taking.Reported on 11/15/2024 Active Problems Patient Care Coordination No te Formatting of this note migh t be different from the original. Michael Kennedy (Pancho's Father) is phone number in the chart. Pancho does not currently have a phone. Pancho does not live there but he will pass along the message to her. Okay to leave messages on this line. Problem Noted Date Diagnosed Date Akathisia 05/27/2022 Essential hypertension 10/03/2020 Overview (05/20/2021): 10/03/20 She has been hypertensive on several visits, today in the clinic is 147/79. Have not addressed this on prior visits as she has had much more pressing issues. She reports that she previously has been on antihypertensive therapy which was stopped. 05/20/21 Started amlodipine 5 in September but Pancho has not been taking consistently (thought it had been stopped). 165/89 in office today, 155/100 on manual check. Assessment & Plan (12/02/2021 7:47 AM EDT): As mentioned we are not going to change any of her medications just get more information and then I will make some adjustments if necessary I will see her in 3 months time after an echo was done Assessment & Plan (05/20/2021 11:41 AM EST): Resume amlodipine 5 and increase propranolol to 20 TID for akasthesia. RTC July. Assessment & Plan (10/03/2020 2:12 PM EDT): We will start with amlodipine 5 mg (she reports taking and tolerating this before) to minimize lab draws as she lives far away and she has no other compelling reason for another antihypertensive choice. We will eventually have to address chronic NSAID use which she uses for MSK pain related to tremor but at the current time there are not great alternatives and she understands the risks of ongoing NSAID use. Paranoia 05/30/2020 Overview (08/30/2020): 05/22/20: For the past year or so that I've known Pancho she has displayed heightened paranoia related to the electronics in her life being hacked by an unknown third democrat. She reports many episodes of strange occurrences with phones, computers, and cars where the technology won't work and is being redirected to another sports book server. She cites this as a reason that we cannot reliably communicate with her by phone. Documented in a telephone encounter, ~ 6 months ago, a police captain in [place] reached out with concerns regarding this same behavior as Pancho had been frequently contacting the police department for help with her electronics being hacked. She reports that every phone she tries is unusable including landlines and thinks there is someone or some democrat responsible. She doesn't not,as far as I can tell, display paranoid behavior in other contexts nor does she have signs/symptoms of hallucinations. I have previously expressed my concerns about this type of behavior to Pancho and suggested we set her up with psychiatric help but she declined as she is adamant her devices are being hacked. Continue to monitor, unfortunately this makes it very challenging to provide care especially given her inability to reliably communicate by phone or get transportation to clinic visits. Patient's assigned SW, Beryl Shirley, was present for 30 minutes of the visit at which time we tried to troubleshoot a solution to Pancho's lack of phone access but were unable to do so (Beryl offered a mktg issued phone but Pancho reported she already had one which experienced the same issues). Beryl will try to set Pancho up with reliable transportation to clinic visits through [employer]. Unfortunately, in-person visits are the only method of providing care at this point, which will become an issue with rising numbers of pandemic. On several occasions I have suggested to Pancho that she transfer care to a local PCP since she lives ~ 1 hour away but she is not interested. 06/04/20: At this visit, pancho stated I don't feel safe at home. On further exploration, she reported that she believes her life partern, Cliff, may be the individual hacking electronics in her life and in her family's lives. Further, she believes he may have set up cameras in her home to spy on her. She adamantly confirms that Cliff has never physically hurt her or threatened to do so. She confronted Cliff about these concerns who retorted that she is paranoid. She continued to state I have no way of proving it but I know its him. I acknowledged the electronic dysfunction in her life and explored whether she felt that despite these occurrences some of her behavior may be paranoid. She does not acknowledge paranoia but she does admit to being very emotionally distressed. She has experienced occasional passive thoughts of self harm by walking into the ocean but has no plan or intention of doing so, citing her son and grandchildren as sources of support. She is willing to see a psychiatrist though prefers someone closer to [place]. 08/29/20 Our [facility] P team was able to generate a list of local psychiatric providers and tried to call Pancho several times in the past couple months but were unable to reach her due to telephone issues. In the office today her symptoms of paranoia appear to be much improved which her sister substantiates and feels that a lot of them were due to prior relationship with her now ex-boyfriend. Pancho states that her mental health is much better with Cliff out of her life although she is still having issues with electronics. Assessment & Plan (08/30/2020 1:19 PM EDT): Pancho and Sidra will meet with our criminal justice social worker Padmaja after our meeting to discuss local pyschiatric providers as well as support for housing resources. Sidra has generously offered that we can put her phone number in Pancho's contact information which will be a reliable point of contact if Pancho is unavailable. Assessment & Plan (06/04/2020 2:37 PM EST): Ongoing paranoia related to an individual hacking electronics in her life, now believes it is her partner Cliff. Is willing to see a psychiatrist if close to her in [place]. Will refer to [facility] and hope they can communicate with her through her phone [phone] which she reports is working as of late. Will also communicate the plan to her SW, Beryl Shirley for phone check-ins. She has occasional passive SI but no intention or plan and does not at this moment meet criteria for Section 12. Close follow-up. Assessment & Plan (05/30/2020 11:19 AM EST): Continue to monitor, unfortunately this makes it very challenging to provide care especially given her inability to reliably communicate by phone or get transportation to clinic visits. Patient's assigned SW, Beryl Shirley, was present for 30 minutes of the visit at which time we tried to troubleshoot a solution to Pancho's lack of phone access but were unable to do so (Beryl offered a mktg issued phone but Pancho reported she already had one which experienced the same issues). Beryl will try to set Pancho up with reliable transportation to clinic visits through [employer]. Unfortunately, in-person visits are the only method of providing care at this point, which will become an issue with rising numbers of pandemic. On several occasions I have suggested to Pancho that she transfer care to a local PCP since she lives ~ 1 hour away but she is not interested. Shortness of breath 05/22/2020 Easy bruising 12/14/2019 Overview (12/14/2019): 12/14/19: Pancho reports recent easy bruising, large hematomas with any trauma to her legs. She recently had labs checked at the end of November with her most recent infusion which showed a normal CBC. We discussed she could be at high risk of bleeding from consistent NSAID use but she reports she is taking them infrequently. Plan to check coags and asked her to call back with any significant bruising/bleeding. She also has been persistently bothered by her experience at the airport when she went through scanner, and a security person told her that her whole body was orange. Pancho ruminates about the idea that her whole body is laden with metal. I explained that we have a recent whole-body CT PET from 2019 which did not show any evidence of metal deposition and that there really is no medical condition that could explain this. We will check iron studies with her labs. Assessment & Plan (12/14/2019 5:25 PM EDT): Pancho reports recent easy bruising, large hematomas with any trauma to her legs. She recently had labs checked at the end of November with her most recent infusion which showed a normal CBC. We discussed she could be at high risk of bleeding from consistent NSAID use but she reports she is taking them infrequently. Plan to check coags and asked her to call back with any significant bruising/bleeding. She also has been persistently bothered by her experience at the airport when she went through scanner, and a security person told her that her whole body was orange. Pancho ruminates about the idea that her whole body is laden with metal. I explained that we have a recent whole-body CT PET from 2019 which did not show any evidence of metal deposition and that there really is no medical condition that could explain this. We will check iron studies with her labs. Mucopurulent chronic bronchitis 12/14/2019 Overview (05/20/2021): 12/14/19: She is a current smoker, has been taking Flovent for maintenance therapy. Previously on Spiriva but has not been using it. She reports recently an increase in the amount of sputum she produces as well as a slight change in the color. No outright fevers but a couple of low-grade temperatures. Slightly more winded on exertion. She has never had PFTs but I suspect she has some degree of chronic bronchitis, plan to continue her Flovent and add back on Spiriva which may help with mucus production. We will discuss PFTs at her next visit in about 6 weeks. 05/22/20: Ongoing symptoms, she reports an episode of bacterial pneumonia treated locally at an outside clinic where she received a course of abx and steroids (does not recall name of abx or dose of steroids). She is experiencing SOB on exertion despite Flovent/spiriva. Plan to augment ICS to ICS/LABA (Advair), will eventually need PFTs but malignancy testing iso of weight loss takes priority. Continues to smoke. 06/04/20: Ongoing symptoms of CRESPO and purulent cough. Chest CT with emphysematous changes and 7mm clustered nodule near lingula, no other parenchymal disease. Mild scattered wheezing on exam. She has picked up rx for Advair but has been only using it once/day. We discussed need to get PFTs to assess lung function and given ongoing symptoms will continue tx with Advair BID and add spiriva. 08/29/20: Her breathing is improved with combination of Spiriva and Advair although she is still producing quite a bit of sputum. 10/03/20 Ongoing frequent sputum production and wheezing. Reports her sputum as green and copious. She was finally able to do PFTs today. Current regimen includes Spiriva 17 and Advair 250-50. She continues to smoke though infrequently, down to a pack every 3 or 4 days. 05/20/21 She had PFTs in September but still no record of them/read in the system. Assessment & Plan (05/20/2021 11:38 AM EST): Will call pulmonary lab to investigate why her PFTs are not appearing in Managed [facility]. If the data was lost will have to repeat. 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 She has been on Advair since May which has caused some improvement in her symptoms but she feels that Spiriva is overall more helpful. We will follow up PFTs when she returns to clinic in about a month and consider escalating her regimen and referral to pulmonology. Additionally we addressed smoking again today which has been reduced but still ongoing. Performed motivational interviewing in clinic-she does want to quit but is not totally sure that she is ready. Her barriers to quitting smoking are the habitual nature of smoking especially in the morning, after meals, and at night. Motivating factors to quitting are cost and respiratory issues. Discussed therapies to assist in smoking cessation, she declined pharmacotherapy and does not want the patch (feels that it may provide more nicotine than she needs) but she is interested in nicotine lozenges which will provide a prescription. Assessment & Plan (08/30/2020 1:20 PM EDT): Readdressed importance of PFTs to assess and monitor severity of illness. Assessment & Plan (06/04/2020 2:40 PM EST): -PFTs -Advair BID, spiriva Assessment & Plan (05/30/2020 11:21 AM EST): Plan to augment ICS to ICS/LABA (Advair), will eventually need PFTs but malignancy testing iso of weight loss takes priority. Assessment & Plan (12/14/2019 5:27 PM EDT): 12/14/19: She is a current smoker, has been taking Flovent for maintenance therapy. Previously on Spiriva but has not been using it. She reports recently an increase in the amount of sputum she produces as well as a slight change in the color. No outright fevers but a couple of low-grade temperatures. Slightly more winded on exertion. She has never had PFTs but I suspect she has some degree of chronic bronchitis, plan to continue her Flovent and add back on Spiriva which may help with mucus production. We will discuss PFTs at her next visit in about 6 weeks. Left temporal headache 01/05/2019 Overview (01/05/2019): 01/04/19: Patient reports over the last 3 months having intermittent episodes of a pressure sensation in her left temporal region, that starts in the frontal aspect of the temporal region and radiates posteriorly. The episodes can last 5-10 minutes or up to 2-3 hours. Nothing seems to improve them or make them worse. They are self-resolving. She also reports increased photosensitivity since they started but the photosensitivity is not worse during the episodes. Denies jaw claudication, recent weight loss, changes in vision, or diploplia. Assessment & Plan (01/05/2019 6:47 PM EDT): Unclear etiology. Have a low suspicion for temporal arteritis but will send inflammatory markers (baseline markers are normal). Possibly this is a migraine syndrome but the episodes seem too short and the photophobia does not correlate with timing of the pressure sensation. Cavernous sinus thrombosis or venous stroke unlikely given no focal deficits. Pain radiates too far posteriorly to be consistent with trigem neuralgia. Will refer to neurology to rule out migraine. - ESR/CRP - Referral to neurology. Rash and other nonspecific skin eruption 019 Overview (01/05/2019): 11/15/18: On Thursday, she woke up with an erythematous stripe on her right hopkins. She took a photo, but had trouble loading it onto the Patient [place], but was concerned about bleeding problems. She reports a year-long history of easy bruising, as well as microscopic hematuria. The concern today was the possibility that the rash represented petechiae, which could not be excluded without an office visit. She has no bleeding of her gums, no hemarthroses 01/05/19: Resolved. CBC and coags are wnl. Assessment & Plan (01/05/2019 6:41 PM EDT): Resolved, will monitor for recurrence. Non-intractable vomiting with nausea 09/14/2018 Overview (01/05/2019): 08/24: Having several NBNB emesis and distension concerning for gastric outlet obstruction. If normal gastric emptying, consider referral to motility expert. This could be contributor to her weight loss. 12/24: Reports continued nausea and vomiting at least once a week. The episodes are paroxysmal, last about 30 minutes, and are not related to meal timing. The patient says they are completely random in onset, and the only helpful intervention is to drink a sugary beverage. She also notes that she feels dizzy during the episodes of nausea, but not vertiginous, more of an off-balance feeling. Assessment & Plan (01/05/2019 6:40 PM EDT): The etiology of the nausea is still unclear, the history seems somewhat compatible with BPPV but Agusto maneuver was negative in office. Does not have classic history of a GI related nausea but we will pursue gastric emptying and try to reschedule EGD at a future visit which was cancelled by the GI doctor who did not feel comfortable doing the EGD in an outpatient setting. - Gastric emptying study - Will pursue re-scheduling EGD at next visit. Dry mouth 09/14/2018 Depression 07/30/2016 Overview (07/30/2016): 07/30/2016: Pancho presents today with significant depressive symptoms since 03/2016. Her son Ron in 05/2015 and she thought she had passed beyond the grief period but starting in March she became increasingly depressed. She spends most of her time in her house while her Enmanuel is at work. She sleeps ~4 hours a day, and while she is not sleeping she reports she is either staring at the wall or crying. She frequently said I don't care anymore and also said that she has felt a great sense of guilt over the loss of her son. She endorses passive SI, but no active SI or suicidal plan. She spent much of this visit (90 minutes) crying. Pancho mentioned that maybe she was initially feeling sad as a caregiver and now she is feeling the grief as Juan Miguel's mother. We discussed several options of treatment for her including psychiatric hospitalization, which we deferred given that it will likely take many days of waiting in the E.D. and she may not need the requirement for inpatient treatment. We opted to get her an urgent visit with psychiatry within the next 7 days, and I have emailed and called the psychiatry access line with a referral. Her support system includes her Enmanuel as well as her half-sister who lives in [place], with whom she talks on the phone frequently. In terms of etiology of her depression, obviously her recent loss of her son plays a big part, though the timing doesn't fit. Her recent TSH level done in 06/04/2016 was within normal limits, and she has not had any new medications (her duloxetine dates back to 2014 and gabapentin has been her med for years). She has been taking valium PRN as prescribed We discussed that if she were to feel like hurting herself, she would call my office or go to an ED immediately and she agrees with the plan. I think she would benefit from both pharmacotherapy as well as counseling. A&P: will continue current med and referral to psychiatry Atherosclerosis of [place] co ronary artery of [place] heart without angina pectoris 01/30/2016 Overview (06/20/2019): 01/04/19: Patient previously on atorvastatin 40 but no longer taking because lipids improved. Her current ASCVD risk is 5.5% but she has FH of early CVD in family (grandmother with stroke at 63, other females with heart disease). She also has extensive calcification in abdominal aorta on CT. 06/30/19: Last visit wrote for atorva 20 but Pancho reports it never went to her pharmacy. She recently saw her observation assistant at an outside facility who also strongly recommends she be on a statin. Assessment & Plan (12/02/2021 7:48 AM EDT): She does not have documented coronary artery disease just family history I would drive her LDL less than 100 mg/dL I will discuss statin agent next visit Assessment & Plan (06/20/2019 4:57 PM EST): Will send it atorva 20 again to her pharmacy. If any issues she was encouraged to call the clinic. Assessment & Plan (01/05/2019 6:56 PM EDT): Per guidelines patient does not meet criteria for statin but given her FH and obvious atherosclerotic burden on CT, as well as her ability to tolerate statins in the past, she likely would benefit from restarting statin -Atorvastatin 10mg will up-titrate as tolerated. Abdominal bloating 09/07/2015 Overview (09/07/2015): Abdominal bloating. Service date: 03/30/2015. Author: Coby Brunson NP. Comment: 3 weeks of constant epigastric pain with intermittent sharp spikes (now 8/10). Notes abd is distended. Complains of constant nausea which she has been taking Zofran. Decreased appetite. She has chronic diarrhea and has intermittently had close to black stools. s/p gall bladder removal (? of retained stones). Hx of perforated duodenal ulcer. Has been taking her omperazole. She also has had chills and sweats. No alcohol - Will send to ED for evaluation of ulcer, pancreatitis, abdominal pain w/u : 03/30/15 Pt seen in ER last week. Work up was neg including CT abd . labs all wnl. Pain is better . C/o some nausea but taking zofran prn. Anxiety 09/07/2015 Overview (06/20/2019): Anxiety. Service date: 08/13/2015. Author: Eliud Underwood MD; Alba Harmon MD. Comment: ---05/21/2015--- Patient reports significant anxiety at home with what appears to be panic attacks with sudden diaphoresis, tremor, and anxiety. She had a similar episode while in the office. Patient reports that she has been taking clonazepam since 2006 for anxiety and insomnia. However, our record indicates that her prescription of benzodiazepine started in 2011. Upon further questioning, she reports she had been getting it previously from another provider. She has been maintained on duloxetine for many years. I don't think this is a great drug for her as it is associated with hyperactivity and insomnia, both of which she is complaining of, in addition to her anxiety. I would favor switching her to a more sedating SSRI such as paroxetine while tapering off her duloxetine, and will also taper her benzodiazepine once her SSRI is uptitrated. --- 06/2015--- Unfortunately Pancho's son in late May 2015 after suffering for a long time from a seizure disorder. She is distraught over the of her son and tearful at times, however, with passive or active SI. She is unable to appreciate any favorable response to switching to paxil at this moment -08/13/2015 this visit- Paxil uptitrated to 40mg QD, which has led her to becoming very irritable without much appreciable impact on her mood. Her back pain has increased significantly. Today we discussed her symptoms in light of switching her medications and decided to restart duloxetine and taper off paxil. A&P: anxiety - Taper off paxil by taking 20mg QD for 1 week then off - Restart duloxetine at 60mg QD. For more detail, see my previous note. Her anxiety a main carry all driver of multitudes of her symptoms. She has been on duloxetine for pain, which was activating and switched to fluoxetine. This she did not tolerate. She was restarted on duloxetine. 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 She has been taking duloxetine 60 mg for a long time and states she needs something else for her mood. She sees a therapist at an outside facility. She was previously trialed on Paxil but it was tapered off because she did not achieve any benefit. Assessment & Plan (06/20/2019 4:54 PM EST): Pancho and I discussed that given she is taking several other psychoactive medications including benzodiazepines and duloxetine and has trialed other antidepressants that her psychiatric needs would be best assessed by a psychiatrist who could better trial the right medication for her. She notes that the of her therapist is a psychiatrist and she would like to see her. Plan for referral to outpatient psychiatry and close follow-up with me. If she is unable to be seen at the clinic where she sees her therapist we will set her up with someone in the partner system. Assessment & Plan (09/12/2015 5:16 PM EDT): --Referral to psych for assessment of underlying axis I psych disorder. Chest pain 09/07/2015 Overview (03/27/2017): Patient reports a sensation of pulling in her chest, worse with exertion. Also complains of profound fatigue. Unable to carry out more than a couple of task without being exhausted. Also, out of breath at the top of the stairs with some associated diaphoresis. Recent labs done in 03/2015 all grossly normal including CBC, TSH, BMP. Exam as below with end-expiratory wheeze. EKG done at last visit unremarkable. PFT done in last 8 years with normal FEV, FVC, and FEV1/FVC ratio. Previously unable to tolerate Spiriva and albuterol. 03/2017: chest pain today is not exertional, prior MIBI scan in 2015 showed normal myocardial perfusion without evidence of ischemia or infarction. LV contractile function is normal. Will trial PPI and re-assess in one month. Assessment & Plan (09/12/2015 3:37 PM EDT): A&P: atypical chest pain. Dobuta stress negative - Continue ASA given risk CVD risk - Start moderate-intensity statin with atorva 40mg QPM Chronic diarrhea 09/07/2015 Overview (09/07/2015): Diarrhea, chronic. Service date: 03/30/2015. Author: Coby Brunson NP. Comment: Last Visit: Patient complains of chronic diarrhea, ranging from no BM a day to 9 time a day, described as colored water green, dark brown. No melena or bright blood. Formed stool maybe 3 times a month. Three days of constipation in last 6 months ago. Abdominal pain started about a month ago. No association with types of food. Generalized lower abdominal and diffuse abdominal pain also not associated with eating. No improvement with BM. No new meds. No fever, chills, n/v/d. Interval hx: Diarrhea resolved, but with constipation with BM every other day, associated with abdominal pain which improves with BM. Longest day without BM 3 days. But this week, normal BM movement. No obvious association with food, including lactose. Patient unable to provide stool sample at last visit. On exam, her abdomen is soft and non-distended. She grimaces with deep palpation in epigastrum. Radiation of pain to R inguinal area on palpation. No inguinal or ventral hernia. A/P: Her intermittent oscillation between diarrhea and constipation without clear association with food raises suspicion for IBS per Lucas criteria (+ relief with defecation and change in stool frequency/texture). Previously negative anti-ttg. Colonoscopy approximately 4 years ago with unknown finding. She is on naproxen that may be associated with diarrhea, however, no recent use for prolonged time --Patient reassured --High fiber diet recommended --Senna/colace PRN for constipation --RTC in 3 month: 03/30/15 Pt with hx of intermittent diarrhea which has persisted . ABd pain resolved. Taking naprosyn only occas. Eating well but says everything goes through her. will monitor and f/u 2 months. Dysphagia 09/07/2015 Overview (06/20/2019): Dysphagia. Service date: 11/18/2013. Author: Willie Kenney MD; Stacey Reis MD. Comment: Please see prior notes for full details. In brief, Pancho has described a long history of chronic cough as well as a history of worsening difficulty swallowing both solids and liquids (reporting they feel they get lodged in her esophagus, well below her oropharynx). She was seen by Dr. Tatiana Perez in 2008 for evaluation of her dyspnea, with notable studies at the time including: PFTs 10/11/08: FEV1 111% predicted, FEV1/FVC 99% predicted, DLCO 89% predicted. Barium swallow 10/11/08: Severe gastro-esophageal reflux Recent negative stress tests with outside observation assistant (per her report) INTERVAL: --Still reports she feels food and fluid being lodged in her esophagus intermittently, and that this passes with time. Denies associated cough. --Underwent normal esophageal motility studies in September 2013 --Today we discussed that her normal motility studies were reassuring, and that it's possible she's experiencing non-acid reflux/gastric regurgitation despite her PPI therapy. Certainly if things worsen we can refer her back to GI. --Also notes mild hoarseness since this motility study; not hoarse on exam Recent studies: EGD on 02/22/13 that showed a normal examined stomach, esophagus, and duodenum, aside from retained food in the stomach. Esophageal motility study 09/16/13 showed normal LES relaxation and peristalsis A/P: Dysphagia of unclear etiology, with essentially normal EGD and esophageal motility studies. ?if experiencing gastric regurgitation intermittently despite acid suppression. Continues on PPI as we think this may help with a component of her symptoms. Deferring ENT referral for nasopharyngoscopy to see if hoarseness improves before next visit. 06/20/19: Pancho reports today that her dysphagia is severe again and it is challenging to swallow her diazepam pills. Reports that her pills get stuck in her throat in the lower part of her neck. She has had extensive work-up for this in the past including EGD and motility studies which have been unrevealing. Most recent EGD in 2018 showing only small hiatal hernia. Assessment & Plan (06/20/2019 5:06 PM EST): Pancho was scheduled to get another endoscopy this year with Dr. Estrada from GI, however he did not feel comfortable doing the study as an outpatient. We have been trying to coordinate an inpatient EGD but have not been able to do so yet. I am not sure that her dysphagia is a primary gastroenterologic issue and may be a manifestation of her broader neurologic dysfunction with stiff person syndrome, especially given her prior negative work-up. A repeat EGD with a normal EGD in 2018 is unlikely to be fruitful. I think this issue would best be addressed by specialist neurologist. We will follow-up closely as patient goes in to see Dr. Foley and I encouraged Pancho to call in if her dysphagia gets any worse. Gastroesophageal reflux disease 09/07/2015 Overview (03/27/2017): Gastroesophageal reflux disease. Saw [facility] anatomical embalmer Dr. Perez in 2008 for chest burning and squeezing pain associated with dyspnea and palpitations, present for a few years, worse at night and with lying flat. Barium swallow was ordered and on 10/11/08 showed tiny hiatal hernia with severe gastroesophageal reflux. She was treated with a PPI with improvement in her symptoms observed. 03/2017: repeat occurrence of dull chest pain associated with bile-like taste in her mouth, in the setting of discontinuation of omeprazole. Plan for re-trial and follow-up. Assessment & Plan (12/02/2021 7:48 AM EDT): Currently she is not symptomatic from this Healthcare maintenance 09/07/2015 Overview (05/20/2021): Health maintenance: 08/24: Missing mammography records from outside institution 12/24: Last mammo at outside hospital in September of last year, reportedly negative but we are missing documentation. Due for Zoster series. 06/20/19: Due for flu today and shingrex. Patient still smoking a couple cigarettes a day. Otherwise HM UTD. 06/04/20: Due for flu, PCV-13, shingrex, mammo. 05/20/21 Due for covid booster, flu, and shingrix. Assessment & Plan (05/20/2021 11:42 AM EST): We discussed priority is COVID booster, wait two weeks and she can get flu and Shingrix together. She can get all of these at local pharmacy. Assessment & Plan (06/04/2020 2:43 PM EST): Flu and PCV-13 in clinic. Mammo documentation as per weight loss problem, will schedule before she leaves this visit. Unable to give shingrix here bc of insurance, will need to get at local pharmacy. Assessment & Plan (06/20/2019 4:59 PM EST): Will administer Flu in clinic today. Will readdress shingrex and smoking cessation at a later visit when more time permits. Assessment & Plan (01/05/2019 6:49 PM EDT): Patient instructed to go to [facility] for first Zoster installment, she agreed. Will bring mammogram results on next visit in 6 weeks. Otherwise HM up to date. Assessment & Plan (11/16/2018 11:25 AM EDT): Repeat return call to patient and I was able to reach her. Patient given all of her blood work results from yesterday which are all normal. Assessment & Plan (11/16/2018 11:09 AM EDT): Images from the original note were not included. Return phone call to patient and I LMTCB on her mobile voicemail. Tatiana Aguayo [facility] [place] [id number] Rn Results ~ tel # ~ looking for results on labs She was here yesterday Pain in joint 09/07/2015 Overview (09/07/2015): Joint pains. Service date: 11/18/2013. Author: Willie Kenney MD; Stacey Reis MD. Comment: She Stiff Person Syndrome history listed separately. In addition to muscle pain and stiffness, she has noted widespread joint pains in the shoulders and hips, as well as the elbows and ankles. She notes she had some kind of R shoulder procedure in the past with unusual findings present at the time of surgery, which she reports resulted in an unplanned 3 day hospital admission. She believes her L shoulder symptoms are worsening and cannot perform overhead movements. PT has seemed to exacerbate her muscle pains in the past and she wishes to defer this until she sees an orthopedist. She also notes increasing R hip pain as below, with significant pain on rotation or with hip flexion. On exam, she is unable to abduct the L shoulder actively above 90 degrees, and even passive abduction is very uncomfortable. Flexion/extension of the L shoulder are moderately uncomfortable. The R shoulder cannot be actively abducted above 90 degrees either, but passive abduction, flexion, and extension are only mildly uncomfortable. Internal and external rotation of the shoulder lead to discomfort as well, L>R. Hip exam as above; she has pain and stiffness in her lower back and upper leg with elevation of either leg, R>L, to less than 30 degrees, and similarly experiences pain with even slight internal or external rotation of the R>L hip done passively on the exam table. Plain films 04/27/13 showed mild OA of both hips, SI joints, and the pubic symphysis. A/P: Possible rotator cuff syndrome or frozen shoulder on the L side, with R>L hip pain related likely partially to OA and possibly to other less readily identifiable causes. She does not wish to pursue PT given lack of success with this in the context of her stiff person syndrome, even when I discussed with her that this would be shoulder-specific PT. We agreed with referral to a general orthopedist and I recommended Dr. Janki Ruano. Pain control regimen as above. Duodenal ulcer 09/07/2015 Overview (09/07/2015): Perforated duodenal ulcer. Service date: 05/28/2012. Author: Willie Kenney MD; Pancho Toney MD. Comment: Reports a perforated duodenal ulcer in 2008 or 2009 that was managed at an OSH. Reports intial symptoms 3 weeks prior to presentation were mainly hunger, followed by feeling like being suffocated internally when closing arms as well as low back and mild abdominal pain. Of note, reports that this perforation was managed without surgical intervention, and that in addition to EGD, a colonoscopy was performed within 10 days and was overall unremarkable. A/P: Report of no surgical intervention is mildly confusing. I have asked her for outside records so that we may review them and confirm prior diagnostic procedures and clarify the history. Continues on PPI for now. 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 Service date: 08/13/2015. Author: Eliud Underwood MD; Alba Harmon MD. Comment: Please see past notes for summary of her complex history of muscle and joint pains in exhaustive detail. Seen by Dr. Peterson 03/09 with plans for rituxan infusion x 2 in 05/2014. 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 Previously seen by Dr. 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 While a mild stiff person syndrome may be possible, most of her purported neurological symptoms appear to be functional (i.e. not due to demonstrable neurological disease). On exam: patient with significant less tremor and stiffness overall with intermittent resolution especially with distraction. --05/22/2015-- The patient returns for the first time in 8 months after canceling several appointments. She has been undergoin [id number] rituxan infusion with Dr. Peterson and reports significant improvement in her symptoms with the infusion. She continues to take her clonazepam and diazepam intermittently (please see the anxiety section for more detail) 06/2017: (last visit with retail shift supervisor Dr. Peterson): The diagnosis of stiff- person syndrome remains uncertain, perhaps, but Ms. Kennedy seems to benefit substantially from rituximab. 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 She received her last RTX just a couple of weeks ago and remains on a q four month treatment regimen. 12/24: Reports stable symptoms with continued Rituxan infusions, reports that her symptoms tend to get worse prior to the next Ritux infusion. 06/20/19: Pancho came in today very distressed saying my whole body is falling apart. She reports muscle aches and pains diffusely throughout her body, uncontrollable tremor, and reduced functionality in her life as well as new onset dysphagia which is noted separately. She reports that her symptoms always get worse prior to the next Rituxan infusion. She also reports that it was the recent birthday of her son who several years ago and that this has also caused a flareup of her symptoms. She was tearful throughout the visit, clearly in a lot of distress, and asked that we increase her diazepam to better control her symptoms. Per last visit she was supposed to get a follow-up with Dr. Peterson but she has been unable to do so and has not seen him in over 2 years. Very tremulous on exam more so than the past visit. 11/03/19: Pancho continues to report that her stiff person syndrome is less well controlled than it was prior especially in the period Immediately prior to Rituxan infusion. She brings up that in 2015 she was on an as needed clonazepam on top of her Valium which provided her a lot of relief. It is unclear from the chart why exactly this was discontinued. Pancho reports that it had to do with a miscommunication between her pharmacist and her PCP at that time Eliud Underwood. 12/14/19: The neurologist she would like to see is Chilnago Lorenzana who has an office in [place]. Our office has been attempting to send an external referral although our RN has had some difficulty in hearing back from them. Plan to touch base with the RN as to the status of the referral. Once Pancho is established as a patient, plan to call the provider to give a warm pass off. 08/29/20: Because of communication issues and Pancho's limited access to a phone, she was never able to connect with the neurologist in [place]. I discussed with Pancho and Sidra the need for her to have a subspecialist follow her tremor as this is not something that should be managed by a PCP. 10/03/20 She reports that she has successfully set up appointment with a neurologist at [facility]. The first appointment is in the coming weeks. 11/13/20 Reportedly has not yet connected with a neurologist. The neurologist she initially wanted was not accepting patients. Her sister has taken charge of trying to find a neurologist. [facility] has an external referral. 04/24/21 She still has not connected with a neurologist. I have been in contact with her sister (because of Pancho's issues with telephones and communications) and trying to facilitate getting her neurologist at an outside facility but Pancho reports that her sister has unfortunately not yet set her up with the neurology office. Regarding her symptoms, she says that her tremor is about the same but she has a feeling of needing to move and restlessness that is just as bad as before her starting treatment with rituximab. 05/20/21 Pancho and her father have been diligently looking for a neurologist in [facility] but haven't found one yet. They are trying for a third one in [place]. Pancho knows of a neurologist at [facility], Dr. Peterson, that does deal with stiff person's syndrome but this doctor was her son's neurologist who tragically in childhood. Pancho became upset/tearful when discussing this doctor and we both agreed it would be better she not establish care with him given the associated trauma. She has been taking propranolol 10 TID with some effect on akasthesia Assessment & Plan (12/02/2021 7:49 AM EDT): Being taken care of by [facility] for this Assessment & Plan (05/20/2021 11:37 AM EST): Her and her father are checking in with another neurologist in [place]. If she is unable to find a neurologist in [facility] we agreed she will need to come to someone in [place]. In 2019 reached out to movement disorder specialist at , Dr. Mike, who agreed to see Pancho, however, at that time Pancho had insurmountable issues with telephones/communication which interfered with establishing care. I gave her the number for Dr. Hurst's office if she cannot establish with the neurologist in [place]. Regarding management of akasthesia will increase propranolol to 20 TID- she has both pulse and BP room. Assessment & Plan (04/26/2021 9:50 AM EST): I again explained to Pancho that we absolutely need a specialist following her for her movement disorder as I do not feel comfortable managing and especially do not feel comfortable providing increased benzos (she was previously on Klonopin in addition to diazepam). In discussion with Pancho and her father, we concluded that the next best place to try to find a neurologist would be [facility] because it is about 20 minutes away from them and within the partner system so that I can read their notes. I will refer to [facility] and Pancho says she will go by in person to try to schedule a visit. Regarding her symptoms, it seems like she has been bothered by akathisia rather than worsening of tremor. I do feel comfortable trying nonselective beta-frankie, propranolol, and attempts to target akathisia. We will start with 10 mg 3 times daily and have her come back in a month to check vitals and response to medication. Assessment & Plan (11/13/2020 2:34 PM EDT): I told Pancho that her sister should reach out to me if she's having trouble finding a neurologist at [facility]. This is still a priority. Her sister has my contact information. Pancho will talk with her sister about it this week. I also offered that if we cannot find someone at [facility], we can try for neurology here. Assessment & Plan (10/03/2020 2:11 PM EDT): We discussed the importance of her seeing the neurologist in of them faxing records over to me so that I can be in communication with the neurologist to coordinate care. Provided Pancho with a card containing our clinics fax number. She is having more MSK pain associated with the weight loss and finds gabapentin helpful. She is currently taking 600 mg daily which we will increase to twice daily as would prefer to minimize further NSAID use. Assessment & Plan (08/30/2020 1:00 PM EDT): I discussed with Pancho and Sidra the need for her to have a subspecialist follow her tremor as this is not something that should be managed by a PCP. Pancho and Sidra understand and we discussed what would be most convenient regarding finding a neurologist-whether to stay in the partner system and accept a longer drive or to find someone more local to [place]. Ultimately, felt a local neurologist would be better. I have tasked Sidra with finding a convenient local provider and calling the office, at which point we will reach out with an external referral. For the time being she continues on Valium TID, Rituxan infusions, and NSAIDs which she has taken for years. Assessment & Plan (12/14/2019 5:29 PM EDT): The neurologist she would like to see is Chilango Lorenzana who has an office in [place]. Our office has been attempting to send an external referral although our RN has had some difficulty in hearing back from them. Plan to touch base with the RN as to the status of the referral. Once Pancho is established as a patient, plan to call the provider to give a warm pass off. Assessment & Plan (11/08/2019 11:12 AM EDT): Pancho continues to report that her stiff person syndrome is less well controlled than it was prior especially in the period Immediately prior to Rituxan infusion. She brings up that in 2016 she was on an as needed clonazepam on top of her Valium which provided her a lot of relief. It is unclear from the chart why exactly this was discontinued. Pancho reports that it had to do with a miscommunication between her pharmacist and her PCP at that time Eliud Underwood. Plan: I reiterated the risks of adding another long-term benzo with Pancho, however, since benzodiazepines are the backbone of treatment for stiff person syndrome it may be reasonable that she requires additional doses if she has developed tolerance or if her stiff person syndrome has evolved. At the end of our conversation I disclosed to Pancho that it would be better to make a more informed decision with specialty provider input as to the risk-benefit of adding back more benzos. Plan to loop in Dr. Peterson, her retail shift supervisor, as well as place a neurology E consult. As a separate issue we have gotten into the pattern where Pancho will come into a visit every 3 months and report a litany of symptoms and concerns, and it is very very challenging to reach her after the visit for follow-up. I disclosed to Pancho that this pattern is not conducive to a productive relationship and that we need both a reliable means of follow-up as well as for each 30-minute follow-up visit to focus on only 1 or 2 of the most pressing concerns. Pancho reported she has been having difficulty maintaining a phone for financial/legal reasons but at the time reports [phone] is the best number to reach her. Pancho was receptive to setting these ground rules. Assessment & Plan (06/20/2019 5:16 PM EST): A significant amount of time was spent discussing and counseling regarding her symptoms along with the preceptor Dr. Alba Harmon. 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 We discussed that because she has such a rare disease it would not be best practice for her primary care doctors to titrate her benzodiazepines. We discussed that she may in fact benefit from increased doses of benzos but this is best done under the care of a specialist. Since Pancho has not seen a specialist in over 2 years it is most pressing to get her a specialist with whom she can connect and can manage her medications. I reached out to Dr. Oliveros, a neurologist who specializes in GAD65 disorders at [facility], who has agreed to see Pancho. Plan to connect with Pancho by phone tomorrow to discuss steps moving forward, realizing that she lives in [facility] and commute to [place] is challenging. For now, plan to keep Diazepam at 10mg BID. Assessment & Plan (01/05/2019 6:23 PM EDT): Appears to be doing well with Rituxan, she feels symptoms are controlled. Requested non-substitutable Valium as she feels worse symptom control with the generic diazepam. -F/u with Dr. Peterson given lengthy interval since last apt (1.5 years) -Sending Valium to pharmacy with non-substitutable contingency (patient understands higher co-pay). Assessment & Plan (09/12/2015 5:13 PM EDT): --Appreciate Dr. Peterson's f/u: --Continue diazepam 10 mg BID, and continue to taper off --Continue gabapentin 600mg BID --Continue amitriptyline 50 mg PO qHS --Continue naproxen 550 mg tabs QD PRN Synovial cyst 09/07/2015 Overview (09/07/2015): Synovial cyst. Service date: 11/18/2013. Author: Willie Kenney MD; Stacey Reis MD. Comment: Saw Dr. Rogers on 09/06/13 for a ganglion cyst on the volar surface of the R wrist. She feels the cyst has grown, is painful at times, and becomes increasingly uncomfortable with activity using the wrist (e.g. playing air hockey with a younger family member). Dr. Rogers had wished for her to consider the risks and benefits of operative management before booking surgery, and she clearly wishes to pursue surgery. On exam, the ganglion is considerable in size (4x2 cm), and is tender with proximal and distal manipulation more so than manipulation of either side of it. We agreed that she will contact Dr. Rogers for a f/u visit and to consider surgery. Weight loss 09/07/2015 Overview (05/20/2021): Weight loss. Service date: 03/30/2015. Author: Coby Brunson NP. Comment: Reports that she has a history of substantial swings in her weight with even mild changes in her activity, and notes her weight has been as low as the 130/140 lb range. Of note, over the visits I've seen her, her weights have been 143-->153-->163-->174-->183 lbs, and today she is down to 169 lbs. She believes that even mild walking drops her weight precipitously despite minimal dietary changes. We discussed this is peculiar. She set 175 as a goal weight and after discussion we agreed 165-175 was a reasonable range. We agreed that if she were to lose weight rapidly unintentionally (e.g. to <160 lbs), she should contact the office, and could use Ensure supplements, starting once daily and titratable to TID. She wishes to have a plan in place as her family camps often in the summer and she is more active during this time.: 03/30/15 weight today 163 .Says she is eating well but diarrhea immed after. 08/2018: Her weight is up 4lbs, drinking boosts 2 a day (favorite flavor strawberry). She attributes some of her earlier weight loss to getting a new puppy and walking more. Her BMI is 25.5. Barring mammography records that patient is advised to provide to our office and repeat EGD she has completed malignancy workup and BMI within normal limits, however patient feels she is underweight. 12/2018: Her weight is 155 today, reports that when her weight drops she eats more to compensate for the drop. BMI is 26.7. 11/03/19: Pancho continues to report an unusual weight loss pattern where she will lose for 5 pounds and then gained 3 pounds the next day. Though it is difficult to interpret this, she is reporting that her weight at home is 128 which would be significantly down from her baseline. The last weight that she had while she was in the office in June was 141 pounds. She is eating well and is having no difficulty with dysphagia or vomiting, but rather feels that her body is not able to keep on the weight. 05/22/20: Pancho's most bothersome concern at this visit is weight loss. By chart she has lost ~20 pounds in the last year (141->122), she looks visibly thinner. She reports good dietary intake, no vomiting or purging, and is perplexed as to why she is losing weight. This has been a chronic problem as documented above but objectively she has lost a profound amount of weight. She has undergone extensive evaluation in the past including PET-CT notable only for mild hyper-enhancement of the gastric outlet (2018). Regarding a morrissey-ROS she reports ongoing SOB likely related to COPD. Occasional GI discomfort, bloating, otherwise no new symptoms. She displays ongoing, and worsening, paranoia related to electronics in her life and her family's life being hacked by unknown democrat (documented elsewhere), which may well be contributing to her weight loss. Though in general we should avoid over-testing, Pancho is a long-time smoker and at elevated risk for malignancy. Plan for basic labs, CT C/A/P as well as upper endoscopy given GI symptoms and prior PET with hyper- enhancement of gastric outlet. Regarding age appropriate malignancy screening, she is due for mammogram. Close follow-up 06/04/20 In the interval since last visit, Pancho had a CT C/A/P notable for a new clustered nodule in the lingula of the lung measuring 7mm which is likely infectious or inflammatory bronchiolitis, otherwise unremarkable as to source of weight loss. She also had an endoscopy on 05/31 which was unrevealing including her gastric outlet which had been hyperintense on PET in 2019. Biopsies of the esophagous were taken given prior sx of dysphagia which showed normal mucosa. Basic labs ordered for weight loss were taken at this visit (Pancho reports lab closed at last visit). With unrevealing CT and endoscopy lower suspicion for malignancy as cause of weight loss, though she is still due for mammography- last in our system was 2013, has been ordered several times in the interim but not performed because lost to follow- up. At this time favor emotional distress related to paranoia (see separate documentation) with possible contributions from COPD as likely cause of weight loss. 08/29/20 Ongoing weight loss, she is down 5 pounds since I last saw her 3 months ago to 118 pounds. She has now lost over 20 pounds in a year which is visible. She continues to endorse a good appetite and high caloric intake which her sister Sidra confirms. No new localizing symptoms. As documented elsewhere, her paranoia seems to be much better. 10/03/20 Weight has improved a few pounds today to 124! She however reports that she continues to drink quite a few supplemental shakes to add in calories. We again did a full review of systems which was notable for continued wheezing and sputum production despite introduction of Advair-she did PFTs today. Also noted that she does not frequently have diarrhea but notes that her stools are often floating. Notably she had some diarrhea in 2018 that was worked up-colonoscopy and endoscopy unrevealing. Anti-tTG antibody was negative. 11/13/20 Weight back down to 113. 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 Took a basic dietary intake: breakfast includes cereal vs bagel vs eggs+toast, lunch typically salad with a lot of meat (usually steak or chicken), dinner quite varied including stuffed peppers, mac n' cheese, meat and vegetables. Snacks often on crackers/cookies. Medically- PFTs with no read though Pancho is sure they were done. Never got stool O&P done (lost container). No new sx- continues to have long standing dysphagia and purulent cough improved with advair. Feels that her tremor sx about the same. 04/24/21 Weight today up to 117 from 113 last visit, she reports she can't stop moving. Appetite not a problem, she is eating protein shakes and ice cream floats, anything she can to keep calories in. 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 She is following with nutrition and we are trying to arrange for her to get ensure plus. Has f/u with nutrition in July. Assessment & Plan (04/26/2021 9:52 AM EST): Weight is stable to improved at this visit, although Pancho reports that she is still eating voraciously in order to maintain her weight. As documented previously, she has had fairly extensive work-up that has been unrevealing as to a clear cause and I think at this point it is probably related to increased activity related to her movement disorder. Most vital at this point will be setting her up with a specialty neurologist for further management. Assessment & Plan (11/13/2020 1:13 PM EDT): Ongoing weight loss of unclear etiology. Has undergone extensive work-up including multiple cross-sectional imaging (last 05/27), PET in 2019, endoscopy with biopsy of PET-avid site in esophagous (negative), lab work-up. By dietary recall she is eating at least what would be required for a woman of her size that is not physically active (~2K calories or less) and thus appears she may have some reason to be hypermetabolic. Remaining possibilities include chronic bronchitis/COPD- I will call PFT lab to inquire about results, her tremor disorder- though her symptoms are about at baseline so why now?, vs idiopathic reason. Plan to repeat TFTs (consistently normal but has been a while since last check), will send stool O&P (still occasional diarrhea), and when she comes back in 6 weeks will have her see nutrition for more detailed dietary recalls and guidance on maintaining weight. For the time being encouraged her to focus on high caloric intake, and to worry less about protein, which by dietary recall she should be getting more than enough. Assessment & Plan (10/03/2020 2:03 PM EDT): Weight loss is stabilized although she is intentionally adding an calories in the form of supplemental shakes. The only symptoms correlating with weight loss are worsening clinical bronchitis/COPD. She had PFTs performed today which we will discuss at her next visit. Given report of stools floating will send for fecal fat and O&P (on rituximab). Given length of weight loss and no other presenting symptoms, malignancy is lower down in the differential-as she has had recent cross- sectional imaging and prior PET scan will defer repeat PET. Assessment & Plan (08/30/2020 1:11 PM EDT): She was able to get mammography today (had previously missed several appointments) which was unrevealing and as such her weight loss evaluation has included cross-sectional imaging of the chest, abdomen, and pelvis, upper endoscopy, and age-appropriate screening. No localizing symptoms to suggest any alternative diagnoses at this point. Lower suspicion that paranoia is contributing at this point especially since she endorses a good appetite. Still have some concern that this could reflect worsening COPD as we have no PFTs on file and she has missed prior appointments. Plan to see her back in a month and if ongoing symptoms with no clear source may consider PET scan as she does have an elevated risk of malignancy (immunosuppression, active smoking) though many outpatient evaluations for weight loss are not revealing. Assessment & Plan (06/04/2020 2:30 PM EST): -Schedule mammography prior to her leaving this appt -F/u basic labs -Repeat CT chest in ~ 1 year to ensure resolution of clustered nodule. Assessment & Plan (05/30/2020 11:08 AM EST): Plan for basic labs, CT C/A/P as well as upper endoscopy given GI symptoms and prior PET with hyper-enhancement of gastric outlet. Regarding age appropriate malignancy screening, she is due for mammogram. Close follow-up Assessment & Plan (11/08/2019 11:14 AM EDT): Pancho continues to report an unusual weight loss pattern where she will lose for 5 pounds and then gained 3 pounds the next day. Though it is difficult to interpret this, she is reporting that her weight at home is 128 which would be significantly down from her baseline. The last weight that she had while she was in the office in June was 141 pounds. She is eating well and is having no difficulty with dysphagia or vomiting, but rather feels that her body is not able to keep on the weight. Pancho has had an extensive work-up for weight loss which culminated in a PET scan in 2018 that was unrevealing as to a source of her weight loss. If she is eating well and her weight is truly down to 128 then it may be that her stiff person syndrome is less well controlled and she is hypermetabolic from that standpoint. She is also very concerned about her bones being brittle from the weight loss. She had a DEXA scan in 2013 that was normal but given her significant weight loss it is reasonable to repeat. Please see separate problem for stiff-person syndrome. Assessment & Plan (01/05/2019 6:21 PM EDT): Patient's weight is stable, we both agreed this is a comfortable weight to stay at. -Encourage PO intake Assessment & Plan (09/14/2018 7:14 AM EDT): F/u mammography paperwork, EGD and gastric emptying study as described below. Ganglion of hand 09/06/2013 Overview (09/07/2015): Ganglion of hand Tremor 09/05/2013 Overview (09/07/2015): Tremor. Service date: 11/18/2013. Author: Willie Kenney MD; Stacey Reis MD. Comment: Reports a tremor present since age 3, both at rest and with activity; some improvement with beta blockade; changed from propranolol to Toprol XL by her observation assistant back in September 2012. Prominent coarse tremor observed on exam, perhaps slightly decreased in office today 11/18/13 compared with prior. Question of stiff person syndrome as above. Seeking input from Dr. Nataliia Torres; can consider specialized movement disorders consultation if needed. Shakes Muscle pain 09/05/2013 Overview (09/07/2015): History of Myalgias. Service date: 11/18/2013. Author: Willie Kenney MD; Stacey Reis MD. Muscle pain Malaise and fatigue 09/05/2013 Overview (09/07/2015): Malaise and fatigue Resolved Problems Problem Noted Date Diagnosed Date Resolved Date Chronic cough 09/07/2015 01/04/2019 Overview (09/07/2015): History of Chronic cough. Service date: 11/18/2013. Author: Willie Kenney MD; Stacey Reis MD. Upper respiratory infection 09/07/2015 01/04/2019 Overview (09/07/2015): Upper respiratory infection. Service date: 09/18/2014. Author: Eliud Underwood MD. Comment: Patient was admitted in June 2014 for respiratory infection with inability to breathe. Four day hospital stay with an unknown diagnosis but was discharged with an antiobiotics and a steroid course, which suggests she was likely treated with COPD exacerbation. She still smokes anywhere from 0-4 cigarettes a day. On exam today, she is satting 99% on RA. End-expiratory wheezes with good air movement . Prior PFT in 2008 was normal. Patient reportedly cannot tolerate albuterol inhalers A&P: Wheezing ? 2/2 COPD although normal PFTs 6 years ago. - Ipratropium inhaler refill made - Flovent BID - Patient will obtain [facility] record to fax over to our office. 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 (07/29/2014): Stiff-man syndrome Immunizations Immunization Administration Dates Next Due COVID-19 (Pre-03/30) Moderna Vaccine, mRNA, PF 0 10/25/2020,09/26/2020 Influenza Quadrivalent Preservative Free IM 05/09,06/20/2019 Pneumococcal conjugate PCV13 06/04/2020 Pneumococcal polysaccharide PPSV23 03/25/2017 Tdap 04/19/2014,06/08/2004 Social History Tobacco Use Types Packs/Day Years Used Date Smoking Tobacco: Every Day Cigarettes Smokeless Tobacco: Never Tobacco Cessation:Counseling Given: Yes Comments:2 per day Alcohol Use Standard Drinks/Week [...] on file Sexual Orientation Not on file Last Filed Vital Signs Vital Sign Reading Time Taken Comments Blood Pressure 107/60 11/15/2024 5:50 AM EDT Pulse 59 11/15/2024 5:50 AM EDT Temperature 36.3 C (97.3 F) 11/15/2024 5:50 AM EDT Respiratory Rate 18 11/15/2024 5:50 AM EDT Oxygen Saturation 94% 11/15/2024 5:50 AM EDT Inhaled Oxygen Concentration - - Weight 53.5 kg (118 lb) 11/15/2024 5:50 AM EDT Height 162.6 cm (5' 4 ) 11/15/2024 5:50 AM EDT Body Mass Index 20.25 11/15/2024 5:50 AM EDT Plan of Treatment Upcoming Encounters Date Type Department Care Team (Late st Contact Info) Description 05/16/2025 6:00 AM EST [facility] [address] [address] Health Maintenance Due Date Last Done Comments SMOKING Hx and SMOKELESS TOBACCO SCREENING 1977 COLOGUARD 2009 COLONOSCOPY 2009 COLORECTAL CANCER SCREENING 2009 FIT TEST 2009 FOBT 2009 SIGMOIDOSCOPY 2009 VIRTUAL COLONOSCOPY 2009 ZOSTER VACCINES (1 of 2) 2014 DEPRESSION SCREENING 04/24/2022 04/24/2021 MAMMOGRAM 08/29/2022 08/29/2020, 08/07, 07/01/2013, Additional history exists COVID-19 VACCINE ( season) 2024 10/25/2020, 09/26/2020 Adult Td,Tdap Booster 04/19/2024 04/19/2014, 005 LIPID PANEL 11/16/2024 11/17/2023, 04/08, 04/23/2021, Additional history exists INFLUENZA VACCINE (#1) 2025 , 06/04/2020, 06/20/2019 BLOOD PRESSURE 05/17/2025 11/15/2024 PNEUMOCOCCAL VACCINES (50+ years) (4 of 4 - PCV20 or PCV21) 06/04/2025 06/04/2020, 03/25/2017, 02/15/2010 RSV VACCINE (1 - 1-dose 75+ series) 2039 HIV ONE-TIME SCREENING (18-65 YEARS) Completed 02/17/2018 HEPATITIS C SCREENING Completed 05/17/2024 , 03/25/2017, 03/25/2017, Additional history exists HEPATITIS A VACCINES Aged Out No long er eligible based on patient's age to complete this topic HIB VACCINES Aged Out No longer eligi ble based on patient's age to complete this topic MENINGOCOCCAL VACCINES (ACWY) Aged Out No longer eligible based on patient's age to complete this topic MENINGOCOCCAL VACCINES (B) Aged Out N o longer eligible based on patient's age to complete this topic Goals Goal Patient Goal Type Associated Problems Recent Progress Patient-Stated? 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 Does not exclude the possibility of exposure to HCV. 05/17/2024 9:44 AM EST 05/17/2024 12:40 PM EST Marilyn Porter MD LAB BLOOD ORDERABLES Final Resul t Performing Organization Address [facility] Co de Phone Number [address] [address] * (ABNORMAL) Lipid panel (11/17/2023 9:03 AM EDT) HDL 42 35 - 100 mg/dL [facility] CHOLESTEROL 199 <200 mg/dL [facility] TRIGLYCERIDES 130 40 - 150 mg/dL [facility] LDL 131(H) 50 - 129 mg/dL [facility] CARDIAC RISK RATIO 4.7 0.0 - 5.0 [facility] NON-HDL CHOLESTEROL 157 mg/dL [facility] Comment:NCEP ATP III guideli gallito suggest a non-HDL cholesterol goal 30 mg/dl higher than the patient-specific LDL goal. 11/17/2023 9:03 AM EDT 11/17/2023 3:49 PM EDT Cliff Horner MD LAB BLOOD ORDERABLES Final Resul t Performing Organization Address [facility] Co de Phone Number [address] [address] * BI MAMMOGRAM SCREENING WITH TOMOSYNTHESIS WITH CAD (BILATERAL) (08/29/2020 3:40 PM EDT) Anatomical Region Laterality Modality Breast Left, Breast Right, Breast Bilateral Bila teral Mammography 08/29/2020 Impressions 08/29/2020 3:45 PM EDT There is no specific mammographic evidence of malignancy. BI-RADS Category 2: Benign Finding Patient's information is entered into a reminder system with a target due date for the next mammogram. Narrative 08/29/2020 3:45 PM EDT INDICATION FOR EXAM: Screening. PROCEDURE: The following standard mammographic and tomosynthesis views were obtained: craniocaudal and mediolateral oblique. Computer-aided detection was utilized by the radiologist in the interpretation of this examination. BILATERAL MAMMOGRAM: The present study is compared to previous imaging. There are scattered fibroglandular densities. There is an area of prior needle biopsy in the right breast. No suspicious masses, calcifications or other abnormalities are seen in either breast. Procedure Note Wayne Pickens MD - 08/29/2020 INDICATION FOR EXAM: Screening. PROCEDURE: The following standard mammographic and tomosynthesis views were obtained:craniocaudal and mediolateral oblique. Computer-aided detection wasutilized by the radiologist in the interpretation of this examination. BILATERAL MAMMOGRAM: The present study is compared to previous imaging. There are scattered fibroglandular densities. There is an area of prior needle biopsy in the right breast. No suspicious masses, calcifications or other abnormalities are seen ineither breast. IMPRESSION: There is no specific mammographic evidence of malignancy. BI-RADS Category 2: Benign Finding Patient's information is entered into a reminder system with a target duedate for the next mammogram. Carla Flores MD IMG MG EXAMS Final Result from Last 3 Months or Most Recently Relevant to Health Maintenance Additional Health Concerns Active Problems Noted Date Diagnosed Date Chronic Condition Self-Management 02/08/2020 [facility] [place] [facility] [place] [facility] [place] MED[place] PART A & B [facility] Care Teams Equipment Processer Storage Relationship Specialty Start Date End Date Pcp, Unknown PCP - General 11/17/23 Additional Source Comments The information contained in this document represents components of the legal health record. It is not the complete legal health record.[facility]
--- OUTSIDE RECORDS SUMMARY | 2025-02-24 11:09 | XMS_ITS | Encounter Summary ---
Author Organization [facility] Address [address] [place] [phone] Care Team Providers Care Paleology Teacher Name Role Phone Naif Mixon MD Primary Care Provider [phone] Encounter Details Date Type Department Care Team (Late st Contact Info) Description 09/09/2024 Lab Requisition [facility] - Main Lab [address] [facility] [employer] [place] [address] Naif Mixon MD [address] [place] [address] Schizophrenia, unspecified (CMS/HCC V24, CMS/HCC V28); Major [...] Associated Diagnosis Comments COMPLETE BLOOD COUNT Routine 09/12/2024 9:30 AM EDT Schizophrenia, unspecified Major depressive disorder, single episode, moderate (CMS/HCC) BASIC METABOLIC PANEL Routine 09/12/2024 9:30 AM EDT Schizophrenia, unspecified Major depressive disorder, single episode, moderate (CMS/HCC) documented in this encounter Results * (ABNORMAL) Basic metabolic panel (09/12/2024 9:30 AM EDT) Sodium 140 133 - 145 mmol/L LAB CHEMISTRY METHOD 09/12/2024 2:43 PM [facility] Potassium 3.9 3.5 - 5.5 mmol/L LAB CHEMISTRY METHOD 09/12/2024 2:43 PM [facility] Chloride 105 96 - 110 mmol/L LAB CHEMISTRY METHOD 09/12/2024 2:43 PM [facility] CO2 23 21 - 32 mmol/L LAB CHEMISTRY METHOD 09/12/2024 2:43 PM [facility] Anion Gap 12(H) 3 - 11 LAB CHEMISTRY METHOD 09/12/2024 2:43 PM [facility] Glucose 156(H) 70 - 100 mg/dL LAB CHEMISTRY METHOD 09/12/2024 2:43 PM [facility] BUN 26(H) 5 - 25 mg/dL LAB CHEMISTRY METHOD 09/12/2024 2:43 PM [facility] Creatinine 0.97 0.50 - 1.10 mg/dL LAB CHEMISTRY METHOD 09/12/2024 2:43 PM [facility] eGFR 67 >=60 mL/min/1. 73m2 LAB CHEMISTRY METHOD 09/12/2024 2:43 PM [facility] Comment:Calculation based on the Chronic Kidney Disease Epidemiology Collaboration (CKD-EPI) equation refit without adjustment for race. BUN/Creatinine Ratio 26.8 LAB CHEMISTRY METHOD 09/12/2024 2:43 PM [facility] Calcium 9.8 8.5 - 10.5 mg/dL LAB CHEMISTRY METHOD 09/12/2024 2:43 PM [facility] Blood Venous blood specimen / Unknown Venipuncture / Unknown 09/12/2024 9:30 AM EDT 09/12/2024 11:10 AM EDT Naif Mixon MD LAB BLOOD ORDERABLES Final R esult [facility] [address] [place] [address], * (ABNORMAL) Complete blood count (09/12/2024 9:30 AM EDT) WBC 4.5(L) 4.8 - 10.8 K/mcL LAB HEMETOLOGY METHOD 09/12/2024 11:29 AM EDT [facility] RBC 3.90 3.80 - 4.80 M/mcL LAB HEMETOLOGY METHOD 09/12/2024 11:29 AM EDT [facility] Hemoglobin 12.6 11.5 - 16.0 g/dL LAB HEMETOLOGY METHOD 09/12/2024 11:29 AM [facility] Hematocrit 37.0 35.0 - 47.0 % LAB HEMETOLOGY METHOD 09/12[facility]24 [facility] MCV 94.1 79.0 - 98.0 FL LAB HEMETOLOGY METHOD 09/12/2024 11:29 AM [facility] MCH 32.1(H) 27.0 - 32.0 pcg LAB HEMETOLOGY METHOD 09/12/2024 11:29 AM [facility] MCHC 34.1 32.0 - 37.0 g/dL LAB HEMETOLOGY METHOD 09/12/2024 11:29 AM EDT [facility] RDW 12.8 11.0 - 15.0 % LAB HEMETOLOGY METHOD 09/12/2024 11:29 [facility] Platelets 190 130 - 400 K/mcL LAB HEMETOLOGY METHOD 09/12/2024 11:29 [facility] MPV 9.2 7.0 - 11.0 FL LAB HEMETOLOGY METHOD 09/12/2024 11:29 AM EDT [facility] NRBC 0.0 <1.0 % LAB HEMETOLOGY METHOD 09/12/2024 11:29 AM EDT [facility] LAB NRBC Absolute 0.00 <0.10 K/mcL LAB HEMETOLOGY METHOD 09/12/2024 11:29 AM EDT [facility] Blood Venous blood specimen / Unknown Venipuncture / Unknown 09/12/2024 9:30 AM EDT 09/12/2024 11:10 AM EDT us Naif Mixon MD LAB BLOOD ORDERABLES Final R esult [facility] [address] [place] [address], documented in this encounter Visit Diagnoses Diagnosis Schizophrenia, unspecified (CMS/HCC V24, CMS/HCC V28) Major depressive disorder, single episode, moderate (CMS/HCC V24, CMS/HCC V28) Major depressive disorder, single episode, moderate documented in this encounter Care Teams Paleology Teacher Relationship Specialty Start Date End Date Naif Mixon MD [address] [place] [address] PCP - General Family Medicine 05/20/24 documented as of this encounter
--- OUTSIDE RECORDS SUMMARY | 2025-02-24 11:09 | XMS_ITS | Encounter Summary ---
Author Organization [facility] Address [address] [place] [phone] Care Team Providers Care Judge Clerk Name Role Phone Naif Mixon MD Primary Care Provider [phone] Encounter Details Date Type Department Care Team (Late st Contact Info) Description 07/09/2024 Lab Requisition [facility] - Main Lab 299 [facility] [place] [address] Naif Mixon MD [address] [place] [address] Major depressive disorder, single episode, moderate (CMS/HCC [...] Associated Diagnosis Comments COMPLETE BLOOD COUNT Routine 07/11/2024 7:40 AM EST Major depressive disorder, single episode, moderate (CMS/HCC) Schizophrenia, unspecified (CMS/HCC) BASIC METABOLIC PANEL Routine 07/11/2024 7:40 AM EST Major depressive disorder, single episode, moderate (CMS/HCC) Schizophrenia, unspecified (CMS/HCC) documented in this encounter Results * (ABNORMAL) Basic metabolic panel (07/11/2024 7:40 AM EST) Sodium 138 133 - 145 mmol/L LAB CHEMISTRY METHOD 07/11/2024 2:19 PM [facility] Potassium 4.2 3.5 - 5.5 mmol/L LAB CHEMISTRY METHOD 07/11/2024 2:19 PM [facility] Chloride 104 96 - 110 mmol/L LAB CHEMISTRY METHOD 07/11/2024 2:19 PM [facility] CO2 27 21 - 32 mmol/L LAB CHEMISTRY METHOD 07/11/2024 2:19 PM [facility] Anion Gap 7 3 - 11 LAB CHEMISTRY METHOD 07/11/2024 2:19 PM [facility] Glucose 97 70 - 100 mg/dL LAB CHEMISTRY METHOD 07/11/2024 2:19 PM [facility] BUN 26(H) 5 - 25 mg/dL LAB CHEMISTRY METHOD 07/11/2024 2:19 PM [facility] Creatinine 0.82 0.50 - 1.10 mg/dL LAB CHEMISTRY METHOD 07/11/2024 2:19 PM [facility] eGFR 82 >=60 mL/min/1. 73m2 LAB CHEMISTRY METHOD 07/11/2024 2:19 PM [facility] Comment:Calculation based on the Chronic Kidney Disease Epidemiology Collaboration (CKD-EPI) equation refit without adjustment for race. BUN/Creatinine Ratio 31.7 LAB CHEMISTRY METHOD 07/11/2024 2:19 PM [facility] Calcium 9.9 8.5 - 10.5 mg/dL LAB CHEMISTRY METHOD 07/11/2024 2:19 PM [facility] Blood Venous blood specimen / Unknown Venipuncture / Unknown 07/11/2024 7:40 AM EST 07/11/2024 10:59 AM EST us Naif Mixon MD LAB BLOOD ORDERABLES Final R esult [facility] [address] [place] [address], * (ABNORMAL) Complete blood count (07/11/2024 7:40 AM EST) WBC 4.3(L) 4.8 - 10.8 K/mcL LAB HEMETOLOGY METHOD 07/11/2024 11:17 AM [facility] RBC 3.80 3.80 - 4.80 M/mcL LAB HEMETOLOGY METHOD 07/11/2024 11:17 AM [facility] Hemoglobin 11.7 11.5 - 16.0 g/dL LAB HEMETOLOGY METHOD 07/11/2024 11:17 AM [facility] LAB Hematocrit 35.8 35.0 - 47.0 % LAB HEMETOLOGY METHOD 07/11/2024 11:17 AM [facility] MCV 95.0 79.0 - 98.0 FL LAB HEMETOLOGY METHOD 07/11/2024 11:17 AM [facility] MCH 31.0 27.0 - 32.0 pcg LAB HEMETOLOGY METHOD 07/11/2024 11:17 AM [facility] MCHC 32.7 32.0 - 37.0 g/dL LAB HEMETOLOGY METHOD 07/11/2024 11:17 AM [facility] RDW 14.6 11.0 - 15.0 % LAB HEMETOLOGY METHOD 07/11/2024 11:17 AM [facility] Platelets 206 130 - 400 K/mcL LAB HEMETOLOGY METHOD 07/11/2024 11:17 AM [facility] MPV 9.8 7.0 - 11.0 FL LAB HEMETOLOGY METHOD 07/11/2024 11:17 AM [facility] NRBC 0.0 <1.0 % LAB HEMETOLOGY METHOD 07/11/2024 11:17 AM EST [facility] NRBC Absolute 0.00 <0.10 K/mcL LAB HEMETOLOGY METHOD 07/11/2024 11:17 AM EST [facility] Blood Venous blood specimen / Unknown Venipuncture / Unknown 07/11/2024 7:40 AM EST 07/11/2024 10:59 AM EST us Naif Mixon MD LAB BLOOD ORDERABLES Final R esult [facility] [address] [place] [address], documented in this encounter Visit Diagnoses Diagnosis Major depressive disorder, single episode, moderate (CMS/HCC V24, CMS/HCC V28) Major depressive disorder, single episode, moderate Schizophrenia, unspecified (CMS/HCC V24, CMS/HCC V28) documented in this encounter Care Teams Judge Clerk Relationship Specialty Start Date End Date Naif Mixon MD [address] [place] [address] PCP - General Family Medicine 05/20/24 documented as of this encounter
--- OUTSIDE RECORDS SUMMARY | 2025-02-24 11:09 | XMS_ITS | Encounter Summary ---
Author Organization [facility] Address [address] [place] [phone] Care Team Providers Care Locomotive Operator Helper Name Role Phone Naif Mixon MD Primary Care Provider [phone] Encounter Details Date Type Department Care Team (Late st Contact Info) Description 08/20/2024 Lab Requisition [facility] - Main Lab [address] [facility] [place] [address] Naif Mixon MD [address] [place] [address] Schizophrenia, unspecified (CMS/HCC V24, CMS/HCC V28); Major [...] Associated Diagnosis Comments COMPLETE BLOOD COUNT Routine 08/22/2024 10:08 AM EDT Schizophrenia, unspecified (CMS/HCC) Major depressive disorder, single episode, moderate (CMS/HCC) BASIC METABOLIC PANEL Routine 08/22/2024 10:08 AM EDT Schizophrenia, unspecified (CMS/HCC) Major depressive disorder, single episode, moderate (CMS/HCC) documented in this encounter Results * (ABNORMAL) Basic metabolic panel (08/22/2024 10:08 AM EDT) Sodium 142 133 - 145 mmol/L LAB CHEMISTRY METHOD 08/22/2024 3:03 PM [facility] Potassium 3.9 3.5 - 5.5 mmol/L LAB CHEMISTRY METHOD 08/22/2024 3:03 PM [facility] Chloride 105 96 - 110 mmol/L LAB CHEMISTRY METHOD 08/22/2024 3:03 PM [facility] CO2 27 21 - 32 mmol/L LAB CHEMISTRY METHOD 08/22/2024 3:03 PM [facility] Anion Gap 10 3 - 11 LAB CHEMISTRY METHOD 08/22/2024 3:03 PM [facility] Glucose 155(H) 70 - 100 mg/dL LAB CHEMISTRY METHOD 08/22/2024 3:03 PM [facility] BUN 26(H) 5 - 25 mg/dL LAB CHEMISTRY METHOD 08/22/2024 3:03 PM [facility] Creatinine 0.85 0.50 - 1.10 mg/dL LAB CHEMISTRY METHOD 08/22/2024 3:03 PM [facility] eGFR 79 >=60 mL/min/1. 73m2 LAB CHEMISTRY METHOD 08/22/2024 3:03 PM [facility] Comment:Calculation based on the Chronic Kidney Disease Epidemiology Collaboration (CKD-EPI) equation refit without adjustment for race. BUN/Creatinine Ratio 30.6 LAB CHEMISTRY METHOD 08/22/2024 3:03 PM [facility] Calcium 9.9 8.5 - 10.5 mg/dL LAB CHEMISTRY METHOD 08/22/2024 3:03 PM [facility] Blood Venous blood specimen / Unknown Venipuncture / Unknown 08/22/2024 10:08 AM EDT 08/22/2024 11:44 AM EDT us Naif Mixon MD LAB BLOOD ORDERABLES Final R esult [facility] [address] [place] [address], * (ABNORMAL) Complete blood count (08/22/2024 10:08 AM EDT) WBC 4.5(L) 4.8 - 10.8 K/mcL LAB HEMETOLOGY METHOD 08/22/2024 12:03 PM EDT [facility] RBC 3.80 3.80 - 4.80 M/mcL LAB HEMETOLOGY METHOD 08/22/2024 12:03 PM EDT [facility] Hemoglobin 12.0 11.5 - 16.0 g/dL LAB HEMETOLOGY METHOD 08/22/2024 12:03 PM EDT [facility] Hematocrit 35.7 35.0 - 47.0 % LAB HEMETOLOGY METHOD 08/22/2024 12:03 PM EDT [facility] MCV 93.7 79.0 - 98.0 FL LAB HEMETOLOGY METHOD 08/22/2024 12:03 PM EDT [facility] MCH 31.5 27.0 - 32.0 pcg LAB HEMETOLOGY METHOD 08/22/2024 12:03 PM EDT [facility] MCHC 33.6 32.0 - 37.0 g/dL LAB HEMETOLOGY METHOD 08/22/2024 12:03 PM EDT [facility] RDW 13.3 11.0 - 15.0 % LAB HEMETOLOGY METHOD 08/22/2024 12:03 PM EDT [facility] Platelets 194 130 - 400 K/mcL LAB HEMETOLOGY METHOD 08/22/2024 12:03 PM EDT [facility] MPV 9.5 7.0 - 11.0 FL LAB HEMETOLOGY METHOD 08/22/2024 12:03 PM EDT [facility] NRBC 0.0 <1.0 % LAB HEMETOLOGY METHOD 08/22/2024 12:03 PM EDT [facility] NRBC Absolute 0.00 <0.10 K/mcL LAB HEMETOLOGY METHOD 08/22/2024 12:03 PM EDT [facility] Blood Venous blood specimen / Unknown Venipuncture / Unknown 08/22/2024 10:08 AM EDT 08/22/2024 11:44 AM EDT us Naif Mixon MD LAB BLOOD ORDERABLES Final R esult [facility] [address] [place] [address], documented in this encounter Visit Diagnoses Diagnosis Schizophrenia, unspecified (CMS/HCC V24, CMS/HCC V28) Major depressive disorder, single episode, moderate (CMS/HCC V24, CMS/HCC V28) Major depressive disorder, single episode, moderate documented in this encounter Care Teams Locomotive Operator Helper Relationship Specialty Start Date End Date Naif Mixon MD [address] [place] [address] PCP - General Family Medicine 05/20/24 documented as of this encounter
--- OUTSIDE RECORDS SUMMARY | 2025-02-24 11:09 | XMS_ITS | Encounter Summary ---
Author Organization [facility] Address [address] [place] [phone] Care Team Providers Care Geographic Information System Analyst Name Role Phone Naif Mixon MD Primary Care Provider [phone] Encounter Details Date Type Department Care Team (Latest Contact Info) Description 09/03/2024 Lab Requisition [facility] - Main Lab [address] [facility] [place] [address] Naif Mixon MD [address] [place] [address] Schizophrenia, unspecified (CMS/HCC V24, CMS/HCC V28); Other [...] Associated Diagnosis Comments COMPLETE BLOOD COUNT Routine 09/05/2024 5:44 AM EDT Schizophrenia, unspecified Other schizoaffective disorders Major depressive disorder, single episode, moderate (CMS/HCC) BASIC METABOLIC PANEL Routine 09/05/2024 5:44 AM EDT Schizophrenia, unspecified Other schizoaffective disorders Major depressive disorder, single episode, moderate (CMS/HCC) documented in this encounter Results * (ABNORMAL) Basic metabolic panel (09/05/2024 5:44 AM EDT) Sodium 143 133 - 145 mmol/L LAB CHEMISTRY METHOD 09/05/2024 12:21 PM [facility] Potassium 3.9 3.5 - 5.5 mmol/L LAB CHEMISTRY METHOD 09/05/2024 12:21 PM [facility] Chloride 108 96 - 110 mmol/L LAB CHEMISTRY METHOD 09/05/2024 12:21 PM [facility] CO2 26 21 - 32 mmol/L LAB CHEMISTRY METHOD 09/05/2024 12:21 PM [facility] Anion Gap 9 3 - 11 LAB CHEMISTRY METHOD 09/05/2024 12:21 PM [facility] Glucose 105(H) 70 - 100 mg/dL LAB CHEMISTRY METHOD 09/05/2024 12:21 PM [facility] BUN 24 5 - 25 mg/dL LAB CHEMISTRY METHOD 09/05/2024 12:21 PM [facility] Creatinine 0.78 0.50 - 1.10 mg/dL LAB CHEMISTRY METHOD 09/05/2024 12:21 PM [facility] eGFR 87 >=60 mL/min/1. 73m2 LAB CHEMISTRY METHOD 09/05/2024 12:21 PM [facility] Comment:Calculation based on the Chronic Kidney Disease Epidemiology Collaboration (CKD-EPI) equation refit without adjustment for race. BUN/Creatinine Ratio 30.8 LAB CHEMISTRY METHOD 09/05/2024 12:21 PM [facility] Calcium 9.8 8.5 - 10.5 mg/dL LAB CHEMISTRY METHOD 09/05/2024 12:21 PM [facility] Blood Venous blood specimen / Unknown Venipuncture / Unknown 09/05/2024 5:44 AM EDT 09/05/2024 10:54 AM EDT us Naif Mixon MD LAB BLOOD ORDERABLES Final R esult [facility] [address] [place] [address], [place] [phone] * (ABNORMAL) Complete blood count (09/05/2024 5:44 AM EDT) WBC 3.9(L) 4.8 - 10.8 K/mcL LAB HEMETOLOGY METHOD 09/05/2024 12:17 PM EDT [facility] RBC 3.90 3.80 - 4.80 M/mcL LAB HEMETOLOGY METHOD 09/05/2024 12:17 PM EDT [facility] Hemoglobin 12.2 11.5 - 16.0 g/dL LAB HEMETOLOGY METHOD 09/05/2024 12:17 PM EDT [facility] Hematocrit 37.1 35.0 - 47.0 % LAB HEMETOLOGY METHOD 09/05/2024 12:17 PM EDT [facility] MCV 94.9 79.0 - 98.0 FL LAB HEMETOLOGY METHOD 09/05/2024 12:17 PM EDT [facility] MCH 31.2 27.0 - 32.0 pcg LAB HEMETOLOGY METHOD 09/05/2024 12:17 PM EDT [facility] MCHC 32.9 32.0 - 37.0 g/dL LAB HEMETOLOGY METHOD 09/05/2024 12:17 PM EDT [facility] RDW 12.8 11.0 - 15.0 % LAB HEMETOLOGY METHOD 09/05/2024 12:17 PM EDT [facility] Platelets 211 130 - 400 K/mcL LAB HEMETOLOGY METHOD 09/05/2024 12:17 PM EDT [facility] MPV 9.2 7.0 - 11.0 FL LAB HEMETOLOGY METHOD 09/05/2024 12:17 PM EDT [facility] NRBC 0.0 <1.0 % LAB HEMETOLOGY METHOD 09/05/2024 12:17 PM EDT [facility] NRBC Absolute 0.00 <0.10 K/mcL LAB HEMETOLOGY METHOD 09/05/2024 12:17 PM EDT [facility] Blood Venous blood specimen / Unknown Venipuncture / Unknown 09/05/2024 5:44 AM EDT 09/05/2024 10:56 AM EDT us Naif Mixon MD LAB BLOOD ORDERABLES Final R esult [facility] [address] [place] [address], documented in this encounter Visit Diagnoses Diagnosis Schizophrenia, unspecified (CMS/HCC V24, CMS/HCC V28) Other schizoaffective disorders (CMS/HCC V24, CMS/HCC V28) Major depressive disorder, single episode, moderate (CMS/HCC V24, CMS/HCC V28) Major depressive disorder, single episode, moderate documented in this encounter Care Teams Geographic Information System Analyst Relationship Specialty Start Date End Date Naif Mixon MD [address] [place] [address] PCP - General Family Medicine 05/20/24 documented as of this encounter
--- OUTSIDE RECORDS SUMMARY | 2025-02-24 11:09 | XMS_ITS | Encounter Summary ---
Author Organization [facility] Address [address] [place] [phone] Care Team Providers Care Geothermal Plant Manager Name Role Phone Naif Mixon MD Primary Care Provider [phone] Encounter Details Date Type Department Care Team (Late st Contact Info) Description 07/01/2024 Lab Requisition [facility] - Main Lab [address] [facility] [place] [address] Naif Mixon MD [address] [place] [address] Major depressive disorder, single episode, moderate (CMS/HCC [...] Associated Diagnosis Comments COMPLETE BLOOD COUNT Routine 07/04/2024 8:55 AM EST Major depressive disorder, single episode, moderate (CMS/HCC) Schizophrenia, unspecified (CMS/HCC) BASIC METABOLIC PANEL Routine 07/04/2024 8:55 AM EST Major depressive disorder, single episode, moderate (CMS/HCC) Schizophrenia, unspecified (CMS/HCC) documented in this encounter Results * Basic metabolic panel (07/04/2024 8:55 AM EST) Sodium 140 133 - 145 mmol/L LAB CHEMISTRY METHOD 07/04/2024 1:41 PM [facility] Potassium 4.4 3.5 - 5.5 mmol/L LAB CHEMISTRY METHOD 07/04/2024 1:41 PM [facility] Chloride 107 96 - 110 mmol/L LAB CHEMISTRY METHOD 07/04/2024 1:41 PM [facility] CO2 28 21 - 32 mmol/L LAB CHEMISTRY METHOD 07/04/2024 1:41 PM [facility] Anion Gap 5 3 - 11 LAB CHEMISTRY METHOD 07/04/2024 1:41 PM [facility] Glucose 95 70 - 100 mg/dL LAB CHEMISTRY METHOD 07/04/2024 1:41 PM [facility] BUN 24 5 - 25 mg/dL LAB CHEMISTRY METHOD 07/04/2024 1:41 PM [facility] Creatinine 0.75 0.50 - 1.10 mg/dL LAB CHEMISTRY METHOD 07/04/2024 1:41 PM [facility] eGFR 91 >=60 mL/min/1. 73m2 LAB CHEMISTRY METHOD 07/04/2024 1:41 PM [facility] Comment:Calculation based on the Chronic Kidney Disease Epidemiology Collaboration (CKD-EPI) equation refit without adjustment for race. BUN/Creatinine Ratio 32.0 LAB CHEMISTRY METHOD 07/04/2024 1:41 PM [facility] Calcium 9.4 8.5 - 10.5 mg/dL LAB CHEMISTRY METHOD 07/04/2024 1:41 PM [facility] Blood Venous blood specimen / Unknown Venipuncture / Unknown 07/04/2024 8:55 AM EST 07/04/2024 11:57 AM EST Naif Mixon MD LAB BLOOD ORDERABLES Final R esult [facility] [address] [place] [address], * (ABNORMAL) Complete blood count (07/04/2024 8:55 AM EST) [facility] WBC 5.4 4.8 - 10.8 K/mcL LAB HEMETOLOGY METHOD 07/04/2024 1:50 PM EST [facility] RBC 3.90 3.80 - 4.80 M/mcL LAB HEMETOLOGY METHOD 07/04/2024 1:50 PM EST [facility] Hemoglobin 11.8 11.5 - 16.0 g/dL LAB HEMETOLOGY METHOD 07/04/2024 1:50 PM EST [facility] Hematocrit 37.5 35.0 - 47.0 % LAB HEMETOLOGY METHOD 07/04/2024 1:50 PM EST [facility] MCV 96.4 79.0 - 98.0 FL LAB HEMETOLOGY METHOD 07/04/2024 1:50 PM EST [facility] MCH 30.3 27.0 - 32.0 pcg LAB HEMETOLOGY METHOD 07/04/2024 1:50 PM EST [facility] MCHC 31.5(L) 32.0 - 37.0 g/dL LAB HEMETOLOGY METHOD 07/04/2024 1:50 PM EST [facility] RDW 14.9 11.0 - 15.0 % LAB HEMETOLOGY METHOD 07/04/2024 1:50 PM EST [facility] Platelets 199 130 - 400 K/mcL LAB HEMETOLOGY METHOD 07/04/2024 1:50 PM EST [facility] MPV 10.1 7.0 - 11.0 FL LAB HEMETOLOGY METHOD 07/04/2024 1:50 PM EST [facility] NRBC 0.0 <1.0 % LAB HEMETOLOGY METHOD 07/04/2024 1:50 PM EST [facility] NRBC Absolute 0.00 <0.10 K/mcL LAB HEMETOLOGY METHOD 07/04/2024 1:50 PM EST [facility] Blood Venous blood specimen / Unknown Venipuncture / Unknown 07/04/2024 8:55 AM EST 07/04/2024 11:57 AM EST us Naif Mixon MD LAB BLOOD ORDERABLES Final R esult [facility] [address] [place] [address], documented in this encounter Visit Diagnoses Diagnosis Major depressive disorder, single episode, moderate (CMS/HCC V24, CMS/HCC V28) Major depressive disorder, single episode, moderate Schizophrenia, unspecified (CMS/HCC V24, CMS/HCC V28) documented in this encounter Care Teams Geothermal Plant Manager Relationship Specialty Start Date End Date Naif Mixon MD [address] [place] [address] PCP - General Family Medicine 05/20/24 documented as of this encounter
--- OUTSIDE RECORDS SUMMARY | 2025-02-24 11:09 | XMS_ITS | Encounter Summary ---
Author Organization [facility] Address [address] [place] [phone] Care Team Providers Care Machine Etcher Name Role Phone Naif Mixon MD Primary Care Provider [phone] Encounter Details Date Type Department Care Team (Latest Contact Info) Description 08/28/2024 Lab Requisition [facility] - Main Lab [address] [facility] [place] [address] Naif Mixon MD [address] [place] [address] Schizophrenia, unspecified (CMS/HCC V24, CMS/HCC V28); Major depressive disorder, single episode, moderate (CMS/HCC V24, CMS/HCC V28); Other schizoaffective disorders (CMS/HCC V24, CMS/HCC V28) Social History Tobacco [...] Procedure Name Priority Date/Time Associated Diagnosis Comments BASIC METABOLIC PANEL Routine 08/29/2024 11:46 AM EDT Schizophrenia, unspecified Major depressive disorder, single episode, moderate (CMS/HCC) Other schizoaffective disorders COMPLETE BLOOD COUNT Routine 08/29/2024 10:14 AM EDT Schizophrenia, unspecified Major depressive disorder, single episode, moderate (CMS/HCC) Other schizoaffective disorders documented in this encounter Results * (ABNORMAL) Basic metabolic panel (08/29/2024 11:46 AM EDT) Sodium 144 133 - 145 mmol/L LAB CHEMISTRY METHOD 08/29/2024 2:34 PM [facility] Potassium 4.4 3.5 - 5.5 mmol/L LAB CHEMISTRY METHOD 08/29/2024 2:34 PM [facility] Chloride 110 96 - 110 mmol/L LAB CHEMISTRY METHOD 08/29/2024 2:34 PM [facility] CO2 27 21 - 32 mmol/L LAB CHEMISTRY METHOD 08/29/2024 2:34 PM [facility] Anion Gap 7 3 - 11 LAB CHEMISTRY METHOD 08/29/2024 2:34 PM [facility] Glucose 107(H) 70 - 100 mg/dL LAB CHEMISTRY METHOD 08/29/2024 2:34 PM [facility] BUN 19 5 - 25 mg/dL LAB CHEMISTRY METHOD 08/29/2024 2:34 PM [facility] Creatinine 0.81 0.50 - 1.10 mg/dL LAB CHEMISTRY METHOD 08/29/2024 2:34 PM [facility] eGFR 83 >=60 mL/min/1. 73m2 LAB CHEMISTRY METHOD 08/29/2024 2:34 PM [facility] Comment:Calculation based on the Chronic Kidney Disease Epidemiology Collaboration (CKD-EPI) equation refit without adjustment for race. BUN/Creatinine Ratio 23.5 LAB CHEMISTRY METHOD 08/29/2024 2:34 PM [facility] Calcium 9.6 8.5 - 10.5 mg/dL LAB CHEMISTRY METHOD 08/29/2024 2:34 PM [facility] Blood Venous blood specimen / Unknown Venipuncture / Unknown 08/29/2024 11:46 AM EDT 08/29/2024 11:47 AM EDT us Naif Mixon MD LAB BLOOD ORDERABLES Final R esult [facility] [address] [place] [address], [place] [phone] * Complete blood count (08/29/2024 10:14 AM EDT) WBC 6.1 4.8 - 10.8 K/mcL LAB HEMETOLOGY METHOD 08/29/2024 12:36 PM EDT [facility] RBC 4.00 3.80 - 4.80 M/mcL LAB HEMETOLOGY METHOD 08/29/2024 12:36 PM EDT [facility] Hemoglobin 12.6 11.5 - 16.0 g/dL LAB HEMETOLOGY METHOD 08/29/2024 12:36 PM EDT [facility] Hematocrit 36.4 35.0 - 47.0 % LAB HEMETOLOGY METHOD 08/29/2024 12:36 PM EDT [facility] MCV 91.7 79.0 - 98.0 FL LAB HEMETOLOGY METHOD 08/29/2024 12:36 PM EDT [facility] MCH 31.7 27.0 - 32.0 pcg LAB HEMETOLOGY METHOD 08/29/2024 12:36 PM EDT [facility] MCHC 34.6 32.0 - 37.0 g/dL LAB HEMETOLOGY METHOD 08/29/2024 12:36 PM EDT [facility] RDW 12.8 11.0 - 15.0 % LAB HEMETOLOGY METHOD 08/29/2024 12:36 PM EDT [facility] Platelets 192 130 - 400 K/mcL LAB HEMETOLOGY METHOD 08/29/2024 12:36 PM EDT [facility] MPV 9.2 7.0 - 11.0 FL LAB HEMETOLOGY METHOD 08/29/2024 12:36 PM EDT [facility] NRBC 0.0 <1.0 % LAB HEMETOLOGY METHOD 08/29/2024 12:36 PM EDT [facility] NRBC Absolute 0.00 <0.10 K/mcL LAB HEMETOLOGY METHOD 08/29/2024 12:36 PM EDT [facility] Blood Venous blood specimen / Unknown Venipuncture / Unknown 08/29/2024 10:14 AM EDT 08/29/2024 11:47 AM EDT us Naif Mixon MD LAB BLOOD ORDERABLES Final R esult [facility] [address] [place] [address], documented in this encounter Visit Diagnoses Diagnosis Schizophrenia, unspecified (CMS/HCC V24, CMS/HCC V28) Major depressive disorder, single episode, moderate (CMS/HCC V24, CMS/HCC V28) Major depressive disorder, single episode, moderate Other schizoaffective disorders (CMS/HCC V24, CMS/HCC V28) documented in this encounter Care Teams Machine Etcher Relationship Specialty Start Date End Date Naif Mixon MD [address] [place] [address] PCP - General Family Medicine 05/20/24 documented as of this encounter
--- OUTSIDE RECORDS SUMMARY | 2025-02-24 11:09 | XMS_ITS | Encounter Summary ---
Author Organization [facility] Address [address] [place] [phone] Care Team Providers Care Narcotics And/Or Vice Detective Name Role Phone Naif Mixon MD Primary Care Provider [phone] Encounter Details Date Type Department Care Team (Late st Contact Info) Description 06/17/2024 Lab Requisition [facility] - Main Lab [address] [facility] [place] [address] Naif Mixon MD [address] [place] [address] Major depressive disorder, single episode, moderate (CMS/HCC [...] Associated Diagnosis Comments COMPLETE BLOOD COUNT Routine 06/20/2024 8:01 AM EST Major depressive disorder, single episode, moderate (CMS/HCC) Schizophrenia, unspecified (CMS/HCC) BASIC METABOLIC PANEL Routine 06/20/2024 8:01 AM EST Major depressive disorder, single episode, moderate (CMS/HCC) Schizophrenia, unspecified (CMS/HCC) documented in this encounter Results * Basic metabolic panel (06/20/2024 8:01 AM EST) Sodium 141 133 - 145 mmol/L LAB CHEMISTRY METHOD 06/20/2024 12:31 PM [facility] Potassium 4.4 3.5 - 5.5 mmol/L LAB CHEMISTRY METHOD 06/20/2024 12:31 PM [facility] Chloride 107 96 - 110 mmol/L LAB CHEMISTRY METHOD 06/20/2024 12:31 PM [facility] CO2 28 21 - 32 mmol/L LAB CHEMISTRY METHOD 06/20/2024 12:31 PM [facility] Anion Gap 6 3 - 11 LAB CHEMISTRY METHOD 06/20/2024 12:31 PM [facility] Glucose 83 70 - 100 mg/dL LAB CHEMISTRY METHOD 06/20/2024 12:31 PM [facility] BUN 23 5 - 25 mg/dL LAB CHEMISTRY METHOD 06/20/2024 12:31 PM [facility] Creatinine 0.86 0.50 - 1.10 mg/dL LAB CHEMISTRY METHOD 06/20/2024 12:31 PM [facility] eGFR 77 >=60 mL/min/1. 73m2 LAB CHEMISTRY METHOD 06/20/2024 12:31 PM [facility] Comment:Calculation based on the Chronic Kidney Disease Epidemiology Collaboration (CKD-EPI) equation refit without adjustment for race. BUN/Creatinine Ratio 26.7 LAB CHEMISTRY METHOD 06/20/2024 12:31 PM [facility] Calcium 9.0 8.5 - 10.5 mg/dL LAB CHEMISTRY METHOD 06/20/2024 12:31 PM [facility] Blood Venous blood specimen / Unknown Venipuncture / Unknown 06/20/2024 8:01 AM EST 06/20/2024 10:48 AM EST Naif Mixon MD LAB BLOOD ORDERABLES Final R esult [facility] [address] [place] [address], * (ABNORMAL) Complete blood count (06/20/2024 8:01 AM EST) [facility] Signature WBC 4.6(L) 4.8 - 10.8 K/mcL LAB HEMETOLOGY METHOD 06/20/2024 11:19 AM EST [facility] RBC 3.90 3.80 - 4.80 M/mcL LAB HEMETOLOGY METHOD 06/20/2024 11:19 AM EST [facility] Hemoglobin 11.7 11.5 - 16.0 g/dL LAB HEMETOLOGY METHOD 06/20/2024 11:19 AM [facility] Hematocrit 37.8 35.0 - 47.0 % LAB HEMETOLOGY METHOD 06/20/2024 11:19 AM [facility] MCV 97.7 79.0 - 98.0 FL LAB HEMETOLOGY METHOD 06/20/2024 11:19 AM [facility] MCH 30.2 27.0 - 32.0 pcg LAB HEMETOLOGY METHOD 06/20/2024 11:19 AM [facility] MCHC 31.0(L) 32.0 - 37.0 g/dL LAB HEMETOLOGY METHOD 06/20/2024 11:19 AM [facility] RDW 16.2(H) 11.0 - 15.0 % LAB HEMETOLOGY METHOD 06/20/2024 11:19 AM [facility] Platelets 235 130 - 400 K/mcL LAB HEMETOLOGY METHOD 06/20/2024 11:19 AM [facility] MPV 9.8 7.0 - 11.0 FL LAB HEMETOLOGY METHOD 06/20/2024 11:19 AM [facility] NRBC 0.0 <1.0 % LAB HEMETOLOGY METHOD 06/20/2024 11:19 AM EST [facility] NRBC Absolute 0.00 <0.10 K/mcL LAB HEMETOLOGY METHOD 06/20/2024 11:19 AM EST [facility] Blood Venous blood specimen / Unknown Venipuncture / Unknown 06/20/2024 8:01 AM EST 06/20/2024 10:47 AM EST us Naif Mixon MD LAB BLOOD ORDERABLES Final R esult [facility] [address] [place] [address], documented in this encounter Visit Diagnoses Diagnosis Major depressive disorder, single episode, moderate (CMS/HCC V24, CMS/HCC V28) Major depressive disorder, single episode, moderate Schizophrenia, unspecified (CMS/HCC V24, CMS/HCC V28) documented in this encounter Care Teams Narcotics And/Or Vice Detective Relationship Specialty Start Date End Date Naif Mixon MD [address] [place] [address] PCP - General Family Medicine 05/20/24 documented as of this encounter
--- OUTSIDE RECORDS SUMMARY | 2025-02-24 11:09 | XMS_ITS | Encounter Summary ---
Author Organization [facility] Address [address] [place] [phone] Phone Care Team Providers Care Hat Marker Name Role Phone Stacey Reis MD Primary Care Provider [phone] Stacey Reis MD Unavailable [phone] Khurram Ruelas MD Unavailable + Khurram Ruelas MD Unavailable + Stacey Reis MD Unavailable [phone] Waylon Crespo MD Unavailable + Waylon Crespo MD Unavailable + Stacey Reis MD Unavailable [phone] Beryl Shirley SEED SORTER Unavailable [phone] Kaleigh Adams SEED SORTER Unavailable [phone] [facility] Catrina Mcclendon SEED SORTER Unavailable + [phone] Romain Bolanos SEED SORTER Unavailable [email or web address] [email or web address] Yomi Bass MD Unavailable [phone] Keny Govea SEED SORTER Unavailable [phone] Unknown, Unknown Primary Care Provider Yomi Gray MD Unavailable [phone] Alba Harmon MD Unavailable Pcp, Unknown Primary Care Provider Unavailabl e Reason for Referral * MRI/CAT Scan - Closed Specialty Diagnoses / Procedures Referred By Jose ly Referred To Contact Radiology Diagnoses Unintentional weight loss Procedures CT PET Abdomen/Pelvis Khurram Ruelas MD Phone: tel: mailto:Zaid @[email or web address] Referral ID Status Reason Start Date Expiration Date Visits Re quested Visits Authorized [id number] Closed 06/24/2018 06/24/2019 1 1 * MRI/CAT Scan - Closed Specialty Diagnoses / Procedures Referred By Jose ly Referred To Contact Radiology Diagnoses Unintentional weight loss Procedures CT PET Chest Khurram Ruelas MD Phone: tel: mailto:Zaid @[email or web address] Referral ID Status Reason Start Date Expiration Date Visits Re quested Visits Authorized [id number] Closed 06/24/2018 06/24/2019 1 1 Encounter Details Date Type Department Care Team (Latest Contact Info) Description 06/24/2018 Ancillary Orders [facility] [address] [place] [phone] Khurram Ruelas MD [address] [place] [phone] Akash [email or web address] Unintentional weight loss Social History Tobacco Use Types Packs/Day Years [...] EST [facility] [address] [address] documented as of this encounter Results * CT PET ABDOMEN/PELVIS WITH CONTRAST (06/24/2018 11:25 AM EST) Anatomical Region Laterality Modality Abdomen, Pelvis Positron Emissio n Tomography (PET) 06/24/2018 12:2 4 PM EST Impressions 06/24/2018 4:04 PM EST Significant thickening of the gastric antrum without outlet obstruction, which could be inflammatory versus malignancy. RECOMMENDATION: Endoscopy to evaluate the gastric antrum. This report has been forwarded to an automated communication system which will electronically notify appropriate providers of potentially important findings. ATTESTATION: I, Dr. Basim Quintanilla as teaching physician, have reviewed the images for this case and if necessary edited the report originally created by Dr. Jovan Lama. Narrative 06/24/2018 4:04 PM EST TECHNIQUE: DIAGNOSTIC CT SCAN OF THE ABDOMEN AND PELVIS WITH INTRAVENOUS CONTRAST FOR COMPARISON WITH PET/CT SCAN COMPARISON: CT PET ABDOMEN/PELVIS WITH CONTRAST 06/24/2018. FINDINGS: LOWER THORAX: Please refer to report from concurrently performed chest CT. HEPATOBILIARY: Postcholecystectomy. No focal hepatic lesion. No biliary ductal dilatation. SPLEEN: No splenomegaly. PANCREAS: No focal masses or ductal dilatation. ADRENALS: No adrenal nodules. KIDNEYS/URETERS: No hydronephrosis, stones, or solid mass lesions. PELVIC ORGANS/BLADDER: Unremarkable. PERITONEUM / RETROPERITONEUM: No free air or fluid. LYMPH NODES: No lymphadenopathy. VESSELS: Atherosclerotic calcification of the abdominal aorta and its major branches is noted without evidence of aneurysmal dilatation. GI TRACT: No distention. Marked thickening of the gastric antrum without outlet obstruction. There is FDG uptake localized to this location. BONES AND SOFT TISSUES: There are generalized degenerative changes of the skeleton. There are no suspicious lytic or blastic lesions. Procedure Note Basim Quintanilla MD - 06/24/2018 TECHNIQUE: DIAGNOSTIC CT SCAN OF THE ABDOMEN AND PELVIS WITH INTRAVENOUS CONTRAST FOR COMPARISON WITH PET/CT SCAN COMPARISON: CT PET ABDOMEN/PELVIS WITH CONTRAST 06/24/2018. FINDINGS: LOWER THORAX: Please refer to report from concurrently performed chestCT. HEPATOBILIARY: Postcholecystectomy. No focal hepatic lesion. No biliaryductal dilatation. SPLEEN: No splenomegaly. PANCREAS: No focal masses or ductal dilatation. ADRENALS: No adrenal nodules. KIDNEYS/URETERS: No hydronephrosis, stones, or solid mass lesions. PELVIC ORGANS/BLADDER: Unremarkable. PERITONEUM / RETROPERITONEUM: No free air or fluid. LYMPH NODES: No lymphadenopathy. VESSELS: Atherosclerotic calcification of the abdominal aorta and itsmajor branches is noted without evidence of aneurysmal dilatation. GI TRACT: No distention. Marked thickening of the gastric antrum withoutoutlet obstruction. There is FDG uptake localized to this location. BONES AND SOFT TISSUES: There are generalized degenerative changes ofthe skeleton. There are no suspicious lytic or blastic lesions. IMPRESSION: Significant thickening of the gastric antrum without outlet obstruction,which could be inflammatory versus malignancy. RECOMMENDATION: Endoscopy to evaluate the gastric antrum. This report has been forwarded to an automated communication system whichwill electronically notify appropriate providers of potentially importantfindings. ATTESTATION: I, Dr. Basim Quintanilla as teaching physician, have reviewedthe images for this case and if necessary edited the report originally createdby Dr. Jovan Lama. us Stacey Reis MD IMG CT PETCT Final Result * CT PET CHEST WITH CONTRAST (06/24/2018 11:25 AM EST) Anatomical Region Laterality Modality Chest Positron Emissio n Tomography (PET) 06/24/2018 12:1 2 PM EST Impressions 06/24/2018 3:[address] evidence of metastasis in the thorax. Stable small lung nodules, seen at least since January 2009. Narrative 06/24/2018 3:31 PM EST TECHNIQUE: Diagnostic CT scan of the chest WITH intravenous contrast for comparison with PET/CT scan. HISTORY: As given in the header. COMPARISON: Chest CT 02/17/2018. FINDINGS: Lungs: There is bilateral dependent atelectasis. There are stable scattered indeterminate lung nodules, for example in the RIGHT upper lobe on image 48, in the LEFT upper lobe on image 48 measuring up to 3 mm. Airways: The major airways are clear. Pleura: There is no evidence of pleural effusion or pneumothorax. Heart and mediastinum: The cardiac chambers are normal in size. There is no pericardial effusion. There are atherosclerotic calcifications of the coronary arteries. There is no size significant mediastinal or hilar lymphadenopathy. Bones and soft tissues: There are degenerative changes in the bones without suspicious lytic or blastic lesions. Procedure Note Digumarthy, Enrico Eugene, MD - 06/24/2018 TECHNIQUE: Diagnostic CT scan of the chest WITH intravenous contrast for comparison with PET/CT scan. HISTORY: As given in the header. COMPARISON: Chest CT 02/17/2018. FINDINGS: Lungs: There is bilateral dependent atelectasis. There are stablescattered indeterminate lung nodules, for example in the RIGHT upper lobe on image48, in the LEFT upper lobe on image 48 measuring up to 3 mm. Airways: The major airways are clear. Pleura: There is no evidence of pleural effusion or pneumothorax. Heart and mediastinum: The cardiac chambers are normal in size. There isno pericardial effusion. There are atherosclerotic calcifications of thecoronary arteries. There is no size significant mediastinal or hilarlymphadenopathy. Bones and soft tissues: There are degenerative changes in the boneswithout suspicious lytic or blastic lesions. IMPRESSION: No CT evidence of metastasis in the thorax. Stable small lung nodules,seen at least since January 2009. Stacey Reis MD IMG CT PETCT Final Result documented in this encounter Visit Diagnoses Diagnosis Unintentional weight loss Loss of weight Unintentional weight loss Loss of weight documented in this encounter Additional Health Concerns Assessment Noted Time PHQ-2 Depression Total Score: 0 03/25/20 17 1:47 PM EDT documented as of this encounter Care Teams Hat Marker Relationship Specialty Start Date End Date Stacey Reis MD PCP - General 03/11/14 02/16/22 Khurram Ruelas MD [address] [place] [phone] [email or web address] PCP - Resident PCP 12/01/16 11/29/18 Waylon Crespo MD [address] [place] [address] [phone] [place] [address] [email or web address] PCP - Resident PCP 11/30/1811/29 Yomi Bass MD [address] [facility] [address] [place] [address] [email or web address] PCP - Resident PCP 11/30/21 02/16/22 Unknown, German, PCP - General 03/03/22 11/16/23 Pcp, Unknown PCP - General 11/17/23 Stacey Reis MD [address] [place] [phone] [email or web address] Insurance Assigned Provider 09/20/16 Khurram Ruelas MD [address] [place] [phone] [email or web address] Attributed Provider 01/10/1712/11 Stacey Reis MD [address] [place] [phone] [email or web address] Insurance Assigned Provider 09/18/1810/09/18 Waylon Crespo MD [address] [place] [address] [address] [place] [address] [email or web address] Attributed Provider 01/08/19 07/12/22 Stacey Reis MD [address] [place] [phone] [email or web address] Insurance Assigned Provider 09/14/1909/13/[address] [address] [email or web address] [facility] Social Work 01/24/20 07/16/20 Bryan BinSafiaNaomi [facility] [address] [place], [place] [phone] [email or web address] User Interface Designer 06/06/20 07/31/20 [facility] Padmaja Mcclendonnifer, [facility] [address] [place], [place] [phone] [email or web address] Social Work 07/17/20 07/18/21 Romain Bolanos, [address] [phone] [email or web address] 07/19/21 Keny Govea, [facility] [address] [place] [address] [email or web address] [email or web address] 01/03/22 Yomi Bass MD [address] [facility] [address] [place] [address] [email or web address] Attributed Provider 07/12/22 06/13/23 Alba Harmon MD [address] [place] [address], [address], [address] [place] [address] [address] [place] [address] [email or web address] Insurance Assigned Provider 09/13/22 documented as of this encounter Additional Source Comments The information contained in this document represents components of the legal health record. It is not the complete legal health record.[facility]
--- OUTSIDE RECORDS SUMMARY | 2025-02-24 11:10 | XMS_ITS | Encounter Summary ---
Author Organization [facility] Address [address] [place] [phone] Care Team Providers Care Senior Principal Architect Name Role Phone Naif Mixon MD Primary Care Provider [phone] Encounter Details Date Type Department Care Team (Late st Contact Info) Description 10/31/2024 Lab Requisition [facility] - Main Lab [address] [facility] [place] [address] Naif Mixon MD [address] [place] [address] Schizophrenia, unspecified (CMS/HCC V24, CMS/HCC V28); Major [...] Associated Diagnosis Comments COMPLETE BLOOD COUNT Routine 11/01/2024 7:15 AM EDT Schizophrenia, unspecified (CMS/HCC V24, CMS/HCC V28) Major depressive disorder, single episode, moderate (CMS/HCC V24, CMS/HCC V28) BASIC METABOLIC PANEL Routine 11/01/2024 7:15 AM EDT Schizophrenia, unspecified (CMS/HCC V24, CMS/HCC V28) Major depressive disorder, single episode, moderate (CMS/HCC V24, CMS/HCC V28) documented in this encounter Results * (ABNORMAL) Basic metabolic panel (11/01/2024 7:15 AM EDT) Sodium 140 133 - 145 mmol/L LAB CHEMISTRY METHOD 11/01/2024 11:16 AM [facility] Potassium 3.6 3.5 - 5.5 mmol/L LAB CHEMISTRY METHOD 11/01/2024 11:16 AM [facility] Chloride 107 96 - 110 mmol/L LAB CHEMISTRY METHOD 11/01/2024 11:16 AM [facility] CO2 24 21 - 32 mmol/L LAB CHEMISTRY METHOD 11/01/2024 11:16 AM [facility] Anion Gap 9 3 - 11 LAB CHEMISTRY METHOD 11/01/2024 11:16 AM [facility] Glucose 101(H) 70 - 100 mg/dL LAB CHEMISTRY METHOD 11/01/2024 11:16 AM [facility] BUN 18 5 - 25 mg/dL LAB CHEMISTRY METHOD 11/01/2024 11:16 AM [facility] Creatinine 0.96 0.50 - 1.10 mg/dL LAB CHEMISTRY METHOD 11/01/2024 11:16 AM [facility] eGFR 68 >=60 mL/min/1. 73m2 LAB CHEMISTRY METHOD 11/01/2024 11:16 AM [facility] Comment:Calculation based on the Chronic Kidney Disease Epidemiology Collaboration (CKD-EPI) equation refit without adjustment for race. BUN/Creatinine Ratio 18.8 LAB CHEMISTRY METHOD 11/01/2024 11:16 AM [facility] Calcium 8.8 8.5 - 10.5 mg/dL LAB CHEMISTRY METHOD 11/01/2024 11:16 AM [facility] Blood Venous blood specimen / Unknown Venipuncture / Unknown 11/01/2024 7:15 AM EDT 11/01/2024 10:14 AM EDT us Naif Mixon MD LAB BLOOD ORDERABLES Final R esult [facility] [address] [place] [address], * (ABNORMAL) Complete blood count (11/01/2024 7:15 AM EDT) [facility] Signature WBC 4.5(L) 4.8 - 10.8 K/mcL LAB HEMETOLOGY METHOD 11/01/2024 10:35 AM EDT [facility] RBC 3.60(L) 3.80 - 4.80 M/mcL LAB HEMETOLOGY METHOD 11/01/2024 10:35 AM EDT [facility] Hemoglobin 11.6 11.5 - 16.0 g/dL LAB HEMETOLOGY METHOD 11/01/2024 10:35 AM EDT [facility] Hematocrit 35.1 35.0 - 47.0 % LAB HEMETOLOGY METHOD 11/01/2024 10:35 AM EDT [facility] MCV 96.7 79.0 - 98.0 FL LAB HEMETOLOGY METHOD 11/01/2024 10:35 AM EDT [facility] MCH 32.0 27.0 - 32.0 pcg LAB HEMETOLOGY METHOD 11/01/2024 10:35 AM EDT [facility] MCHC 33.0 32.0 - 37.0 g/dL LAB HEMETOLOGY METHOD 11/01/2024 10:35 AM EDT [facility] RDW 11.9 11.0 - 15.0 % LAB HEMETOLOGY METHOD 11/01/2024 10:35 AM EDT [facility] Platelets 214 130 - 400 K/mcL LAB HEMETOLOGY METHOD 11/01/2024 10:35 AM EDT [facility] MPV 8.9 7.0 - 11.0 FL LAB HEMETOLOGY METHOD 11/01/2024 10:35 AM EDT [facility] NRBC 0.0 <1.0 % [facility] 11/01/2024 10:35 AM EDT [facility] NRBC Absolute 0.00 <0.10 K/mcL LAB HEMETOLOGY METHOD 11/01/2024 10:35 AM EDT [facility] Blood Venous blood specimen / Unknown Venipuncture / Unknown 11/01/2024 7:15 AM EDT 11/01/2024 10:14 AM EDT us Naif Mixon MD LAB BLOOD ORDERABLES Final R esult [facility] [address] [place] [address], documented in this encounter Visit Diagnoses Diagnosis Schizophrenia, unspecified (CMS/HCC V24, CMS/HCC V28) Major depressive disorder, single episode, moderate (CMS/HCC V24, CMS/HCC V28) Major depressive disorder, single episode, moderate documented in this encounter Care Teams Senior Principal Architect Relationship Specialty Start Date End Date Naif Mixon MD [address] [place] [address] PCP - General Family Medicine 05/20/24 documented as of this encounter
--- OUTSIDE RECORDS SUMMARY | 2025-02-24 11:10 | XMS_ITS | Encounter Summary ---
Author Organization [facility] Address [address] [place] [address] Care Team Providers Care Aircraft Servicer Name Role Phone Naif Mixon MD Primary Care Provider [phone] Encounter Details Date Type Department Care Team (Latest Contact Info) Description 12/02/2024 Lab Requisition [facility] - Main Lab [address] [facility] [place] [address] Naif Mixon MD [address] [place] [address] Schizophrenia, unspecified (CMS/HCC V24, CMS/HCC V28); Other [...] Associated Diagnosis Comments COMPLETE BLOOD COUNT Routine 12/05/2024 8:52 AM EDT Schizophrenia, unspecified (CMS/HCC V24, CMS/HCC V28) Other schizoaffective disorders (CMS/HCC V24, CMS/HCC V28) Major depressive disorder, single episode, moderate (CMS/HCC V24, CMS/HCC V28) BASIC METABOLIC PANEL Routine 12/05/2024 8:52 AM EDT Schizophrenia, unspecified ([facility] V24, [facility] V28) Other schizoaffective disorders ([facility] V24, [facility] V28) Major depressive disorder, single episode, moderate ([facility] V24, [facility] V28) documented in this encounter Results * (ABNORMAL) Complete blood count (12/05/2024 8:52 AM EDT) [facility] WBC 3.4(L) 4.8 - 10.8 K/mcL LAB HEMETOLOGY METHOD 12/05/2024 11:[address] [facility] RBC 3.90 3.80 - 4.80 M/mcL LAB HEMETOLOGY METHOD 12/05/2024 11:[address] [facility] Hemoglobin 12.2 11.5 - 16.0 g/dL LAB HEMETOLOGY METHOD 12/05/2024 11:[address] [facility] Hematocrit 37.0 35.0 - 47.0 % LAB HEMETOLOGY METHOD 12/05/2024 11:[address] [facility] MCV 95.6 79.0 - 98.0 FL LAB HEMETOLOGY METHOD 12/05/2024 11:[address] [facility] MCH 31.5 27.0 - 32.0 pcg LAB HEMETOLOGY METHOD 12/05/2024 11:[address] [facility] MCHC 33.0 32.0 - 37.0 g/dL LAB HEMETOLOGY METHOD 12/05/2024 11:[address] [facility] RDW 12.0 11.0 - 15.0 % LAB HEMETOLOGY METHOD 12/05/2024 11:[address] [facility] Platelets 195 130 - 400 K/mcL LAB HEMETOLOGY METHOD 12/05/2024 11:[address] [facility] MPV 9.1 7.0 - 11.0 FL LAB HEMETOLOGY METHOD 12/05/2024 11:[address] [facility] NRBC 0.0 <1.0 % LAB HEMETOLOGY METHOD 12/05/2024 11:[address] [facility] NRBC Absolute 0.00 <0.10 K/mcL LAB HEMETOLOGY METHOD 12/05/2024 11:[address] [facility] Blood Venous blood specimen / Unknown Venipuncture / Unknown 12/05/2024 8:52 AM EDT 12/05/2024 10:07 AM EDT us Naif Mixon MD LAB BLOOD ORDERABLES Final R esult [facility] [address] [place] [address], * (ABNORMAL) Basic metabolic panel (12/05/2024 8:52 AM EDT) Sodium 140 133 - 145 mmol/L LAB CHEMISTRY METHOD 12/05/2024 11:[address] [facility] Potassium 3.9 3.5 - 5.5 mmol/L LAB CHEMISTRY METHOD 12/05/2024 11:[address] [facility] Chloride 108 96 - 110 mmol/L LAB CHEMISTRY METHOD 12/05/2024 11:[address] [facility] CO2 24 21 - 32 mmol/L LAB CHEMISTRY METHOD 12/05/2024 11:[address] [facility] Anion Gap 8 3 - 11 LAB CHEMISTRY METHOD 12/05/2024 11:[address] [facility] Glucose 118(H) 70 - 100 mg/dL LAB CHEMISTRY METHOD 12/05/2024 11:[address] [facility] BUN 17 5 - 25 mg/dL LAB CHEMISTRY METHOD 12/05/2024 11:[address] [facility] Creatinine 1.03 0.50 - 1.10 mg/dL LAB CHEMISTRY METHOD 12/05/2024 11:[address] [facility] eGFR 62 >=60 mL/min/1. 73m2 LAB CHEMISTRY METHOD 12/05/2024 11:[address] [facility] Comment:Calculation based on the Chronic Kidney Disease Epidemiology Collaboration (CKD-EPI) equation refit without adjustment for race. BUN/Creatinine Ratio 16.5 LAB CHEMISTRY METHOD 12/05/2024 11:[address] [facility] Calcium 9.0 8.5 - 10.5 mg/dL LAB CHEMISTRY METHOD 12/05/2024 11:[address] [facility] Blood Venous blood specimen / Unknown Venipuncture / Unknown 12/05/2024 8:52 AM EDT 12/05/2024 10:07 AM EDT us Naif Mixon MD LAB BLOOD ORDERABLES Final R esult [facility] [address] [place] [address], documented in this encounter Visit Diagnoses Diagnosis Schizophrenia, unspecified (CMS/[facility] V24, CMS/[facility] V28) Other schizoaffective disorders (CMS/HCC V24, CMS/[facility] V28) Major depressive disorder, single episode, moderate ([facility]/HCC V24, [facility] V28) Major depressive disorder, single episode, moderate documented in this encounter Care Teams Aircraft Servicer Relationship Specialty Start Date End Date Naif Mixon MD [address] [place] [address] PCP - General Family Medicine 05/20/24 documented as of this encounter
--- OUTSIDE RECORDS SUMMARY | 2025-02-24 11:10 | XMS_ITS | Encounter Summary ---
Author Organization [facility] Address [address] [place] [address] Care Team Providers Care Material Control Associate Name Role Phone Naif Mixon MD Primary Care Provider [phone] Encounter Details Date Type Department Care Team (Late st Contact Info) Description 10/25/2024 Lab Requisition [facility] Lab [address] [place] [address] Naif Mixon MD [address] [place] [address] Hypokalemia Social History Tobacco Use Types Packs/Day Years [...] Associated Diagnosis Comments COMPLETE BLOOD COUNT Routine 10/25/2024 7:44 AM EDT Hypokalemia BASIC METABOLIC PANEL Routine 10/25/2024 7:44 AM EDT Hypokalemia documented in this encounter Results * (ABNORMAL) Basic metabolic panel (10/25/2024 7:44 AM EDT) Sodium 142 133 - 145 mmol/L LAB CHEMISTRY METHOD 10/25/2024 10:54 AM EDT [facility] Potassium 4.2 3.5 - 5.5 mmol/L LAB CHEMISTRY METHOD 10/25/2024 10:54 AM [facility] Chloride 109 96 - 110 mmol/L LAB CHEMISTRY METHOD 10/25/2024 10:54 AM [facility] CO2 26 21 - 32 mmol/L LAB CHEMISTRY METHOD 10/25/2024 10:54 AM [facility] Anion Gap 7 3 - 11 LAB CHEMISTRY METHOD 10/25/2024 10:54 AM [facility] Glucose 116(H) 70 - 100 mg/dL LAB CHEMISTRY METHOD 10/25/2024 10:54 AM [facility] BUN 15 5 - 25 mg/dL LAB CHEMISTRY METHOD 10/25/2024 10:54 AM [facility] Creatinine 0.96 0.50 - 1.10 mg/dL LAB CHEMISTRY METHOD 10/25/2024 10:54 AM [facility] eGFR 68 >=60 mL/min/1. 73m2 LAB CHEMISTRY METHOD 10/25/2024 10:54 AM [facility] Comment:Calculation based on the Chronic Kidney Disease Epidemiology Collaboration (CKD-EPI) equation refit without adjustment for race. BUN/Creatinine Ratio 15.6 LAB CHEMISTRY METHOD 10/25/2024 10:54 AM [facility] Calcium 9.0 8.5 - 10.5 mg/dL LAB CHEMISTRY METHOD 10/25/2024 10:54 AM [facility] Blood Venous blood specimen / Unknown Venipuncture / Unknown 10/25/2024 7:44 AM EDT 10/25/2024 9:44 AM EDT us Naif Mixon MD LAB BLOOD ORDERABLES Final R esult [facility] [address] [place] [address], * (ABNORMAL) Complete blood count (10/25/2024 7:44 AM EDT) [facility] WBC 4.5(L) 4.8 - 10.8 K/mcL LAB HEMETOLOGY METHOD 10/25/2024 10:14 AM [facility] RBC 3.70(L) 3.80 - 4.80 M/mcL LAB HEMETOLOGY METHOD 10/25/2024 10:14 AM [facility] Hemoglobin 12.2 11.5 - 16.0 g/dL LAB HEMETOLOGY METHOD 10/25/2024 10:14 AM [facility] Hematocrit 36.2 35.0 - 47.0 % LAB HEMETOLOGY METHOD 10/25/2024 10:14 AM [facility] MCV 97.1 79.0 - 98.0 FL LAB HEMETOLOGY METHOD 10/25/2024 10:14 AM [facility] MCH 32.7(H) 27.0 - 32.0 pcg LAB HEMETOLOGY METHOD 10/25/2024 10:14 AM [facility] MCHC 33.7 32.0 - 37.0 g/dL LAB HEMETOLOGY METHOD 10/25/2024 10:14 AM [facility] RDW 12.2 11.0 - 15.0 % LAB HEMETOLOGY METHOD 10/25/2024 10:14 AM [facility] Platelets 199 130 - 400 K/mcL LAB HEMETOLOGY METHOD 10/25/2024 10:14 AM [facility] MPV 8.9 7.0 - 11.0 FL LAB HEMETOLOGY METHOD 10/25/2024 10:14 AM [facility] NRBC 0.0 <1.0 % LAB HEMETOLOGY METHOD 10/25/2024 10:14 AM [facility] NRBC Absolute 0.00 <0.10 K/mcL LAB HEMETOLOGY METHOD 10/25/2024 10:14 AM EDT [facility] Blood Venous blood specimen / Unknown Venipuncture / Unknown 10/25/2024 7:44 AM EDT 10/25/2024 9:44 AM EDT us Naif Mixon MD LAB BLOOD ORDERABLES Final R esult [facility] [address] [place] [address], documented in this encounter Visit Diagnoses Diagnosis Hypokalemia Hypopotassemia documented in this encounter Care Teams Material Control Associate Relationship Specialty Start Date End Date Naif Mixon MD [address] [place] [address] PCP - General Family Medicine 05/20/24 documented as of this encounter
--- OUTSIDE RECORDS SUMMARY | 2025-02-24 11:10 | XMS_ITS | Encounter Summary ---
Author Organization [facility] Address [address] [place] [phone] Care Team Providers Care Spray Gunner Name Role Phone Naif Mixon MD Primary Care Provider [phone] Encounter Details Date Type Department Care Team (Late st Contact Info) Description 12/06/2024 Lab Requisition [facility] - Main Lab [address] [facility] [place] [address] Naif Mixon MD [address] [place] [address] Hypokalemia; Acute kidney failure, unspecified (CMS/HCC V24); Prediabetes; Other fpc (current) drug therapy Social History Tobacco Use Types Packs/Day Years [...] Procedure Name Priority Date/Time Associated Diagnosis Comments LIPID PANEL WITH REFLEX TO DIRECT LDL Routine 12/06/2024 5:50 AM EDT Hypokalemia Acute kidney failure, unspecified (CMS/HCC V24) Prediabetes Other fpc (current) drug therapy CBC WITH AUTO DIFFERENTIAL Routine 12/06/2024 5:50 AM EDT Hypokalemia Acute kidney failure, unspecified (CMS/HCC V24) Prediabetes 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 CBC AND DIFFERENTIAL Routine 12/06/2024 5:50 AM EDT Hypokalemia Acute kidney failure, unspecified ([facility]/HCC V24) Prediabetes 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 HEMOGLOBIN A1C Routine 12/06/2024 5:50 AM EDT Hypokalemia Acute kidney failure, unspecified ([facility]/HCC V24) Prediabetes 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 FOLATE Routine 12/06/2024 5:50 AM EDT Hypokalemia Acute kidney failure, unspecified (CMS/HCC V24) Prediabetes 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 VITAMIN B12 Routine 12/06/2024 5:50 AM EDT Hypokalemia Acute kidney failure, unspecified ([facility]/HCC V24) Prediabetes Other fpc (current) drug therapy BASIC METABOLIC PANEL Routine 12/06/2024 5:50 AM EDT Hypokalemia Acute kidney failure, unspecified ([facility]/HCC V24) Prediabetes Other fpc (current) drug therapy documented in this encounter Results * (ABNORMAL) CBC auto differential (12/06/2024 5:50 AM EDT) [facility] WBC 3.4(L) 4.8 - 10.8 K/mcL LAB HEMETOLOGY METHOD 12/06[facility]24 [facility] RBC 3.70(L) 3.80 - 4.80 M/mcL LAB HEMETOLOGY METHOD 12/06/2024 11:15 AM EDT [facility] Hemoglobin 11.7 11.5 - 16.0 g/dL LAB HEMETOLOGY METHOD 12/06/2024 11:15 AM [facility] Hematocrit 35.7 35.0 - 47.0 % LAB HEMETOLOGY METHOD 12/06/2024 11:15 AM [facility] MCV 96.0 79.0 - 98.0 FL LAB HEMETOLOGY METHOD 12/06/2024 11:15 AM [facility] MCH 31.5 27.0 - 32.0 pcg LAB HEMETOLOGY METHOD 12/06/2024 11:15 AM [facility] MCHC 32.8 32.0 - 37.0 g/dL LAB HEMETOLOGY METHOD 12/06/2024 11:15 AM [facility] RDW 12.0 11.0 - 15.0 % LAB HEMETOLOGY METHOD 12/06/2024 11:15 AM [facility] Platelets 204 130 - 400 K/mcL LAB HEMETOLOGY METHOD 12/06/2024 11:15 AM [facility] MPV 9.3 7.0 - 11.0 FL LAB HEMETOLOGY METHOD 12/06/2024 11:15 AM [facility] NRBC 0.0 <1.0 % LAB HEMETOLOGY METHOD 12/06/2024 11:15 AM [facility] NRBC Absolute 0.00 <0.10 K/mcL LAB HEMETOLOGY METHOD 12/06/2024 11:15 AM [facility] Neutrophils Relative 41.1 % LAB HEMETOLOGY METHOD 12/06/2024 11:15 AM [facility] Lymphocytes Relative 46.4 % LAB HEMETOLOGY METHOD 12/06/2024 11:15 AM [facility] Monocytes Relative 8.7 % LAB HEMETOLOGY METHOD 12/06/2024 11:15 AM [facility] Eosinophils Relative 2.6 % LAB HEMETOLOGY METHOD 12/06/2024 11:15 AM [facility] Basophils Relative 0.9 % LAB HEMETOLOGY METHOD 12/06/2024 11:15 AM [facility] Immature Granulocytes Relative 0.3 % LAB HEMETOLOGY METHOD 12/06/2024 11:15 AM EDT [facility] Neutrophils Absolute 1.41(L) 1.50 - 7.00 K/[facility] LAB HEMETOLOGY METHOD 12/06/2024 11:15 AM EDT [facility] Lymphocytes Absolute 1.59 1.00 - 5.00 K/[facility] LAB HEMETOLOGY METHOD 12/06/2024 11:15 AM EDT [facility] Monocytes Absolute 0.30 0.20 - 1.00 K/[facility] LAB HEMETOLOGY METHOD 12/06/2024 11:15 AM EDT [facility] Eosinophils Absolute 0.09 0.00 - 0.50 K/[facility] LAB HEMETOLOGY METHOD 12/06/2024 11:15 AM EDT [facility] Basophils Absolute 0.03 0.00 - 0.20 K/[facility] LAB HEMETOLOGY METHOD 12/06/2024 11:15 AM EDT [facility] Immature Granulocytes Absolute 0.01 0.00 - 0.03 K/[facility] LAB HEMETOLOGY METHOD 12/06/2024 11:15 AM EDT [facility] Blood Venous blood specimen / Unknown Venipuncture / Unknown 12/06/2024 5:50 AM EDT 12/06/2024 10:25 AM EDT Naif Mixon MD LAB BLOOD ORDERABLES Final R esult [facility] [address] [place] [address], * (ABNORMAL) Folate (12/06/2024 5:50 AM EDT) Folate 17.9(H) 2.8 - 17.0 ng/ml LAB CHEMISTRY METHOD 12/06/2024 12:23 PM EDT [facility] Blood Venous blood specimen / Unknown Venipuncture / Unknown 12/06/2024 5:50 AM EDT 12/06/2024 10:25 AM EDT Naif Mixon MD LAB BLOOD ORDERABLES Final R esult Performing Organization Address City/[facility]/ZIP Co de Phone Number [facility] [address] [place] [address], [place] [phone] * Vitamin B12 (12/06/2024 5:50 AM EDT) [facility] Vitamin B-12 430 250 - 900 pcg/mL LAB CHEMISTRY METHOD 12/06/2024 12:23 PM EDT [facility] Blood Venous blood specimen / Unknown Venipuncture / Unknown 12/06/2024 5:50 AM EDT 12/06/2024 10:25 AM EDT Naif Mixon MD LAB BLOOD ORDERABLES Final R esult Performing Organization Address City/[facility]/ZIP Co de Phone Number [facility] [address] [place] [address], [place] [phone] * Hemoglobin A1c (12/06/2024 5:50 AM EDT) [facility] Hemoglobin A1C 6.2 <6.5 % LAB CHEMISTRY METHOD 12/06/2024 12:38 PM EDT [facility] Mean Bld Glu Estim. 131 mg/dL LAB CHEMISTRY METHOD 12/06/2024 12:38 PM EDT [facility] Blood Venous blood specimen / Unknown Venipuncture / Unknown 12/06/2024 5:50 AM EDT 12/06/2024 10:25 AM EDT us Naif Mixon MD LAB BLOOD ORDERABLES Final R esult Performing Organization Address City/[facility]/ZIP Co de Phone Number [facility] [address] [place] [address], [place] [phone] * (ABNORMAL) Lipid panel with reflex to direct LDL (12/06/2024 5:50 AM EDT) Cholesterol 223(H) 0 - 200 mg/dL LAB CHEMISTRY METHOD 12/06/2024 12:23 PM EDT [facility] Triglycerides 172(H) 0 - 150 mg/dL LAB CHEMISTRY METHOD 12/06/2024 12:23 PM EDT [facility] HDL 45 >=40 mg/dL LAB CHEMISTRY METHOD 12/06/2024 12:23 PM EDT [facility] LDL Calculated 144(H) 0 - 100 mg/dL LAB CHEMISTRY METHOD 12/06/2024 12:23 PM EDT [facility] VLDL Cholesterol Maynor 34.4 mg/dL LAB CHEMISTRY METHOD 12/06/2024 12:23 PM T [facility] Non HDL Chol. (LDL+VLDL) 178(H) <145 mg/dL LAB CHEMISTRY METHOD 12/06/2024 12:23 PM T [facility] Chol/HDL Ratio 5.0(H) 0.0 - 4.4 LAB CHEMISTRY METHOD 12/06/2024 12:23 PM [facility] Blood Venous blood specimen / Unknown Venipuncture / Unknown 12/06/2024 5:50 AM EDT 12/06/2024 10:25 AM EDT us Naif Mixon MD LAB BLOOD ORDERABLES Final R esult [facility] [address] [place] [address], * Basic metabolic panel (12/06/2024 5:50 AM EDT) Sodium 142 133 - 145 mmol/L LAB CHEMISTRY METHOD 12/06/2024 12:23 PM EDT [facility] Potassium 3.7 3.5 - 5.5 mmol/L LAB CHEMISTRY METHOD 12/06/2024 12:23 PM [facility] Chloride 108 96 - 110 mmol/L LAB CHEMISTRY METHOD 12/06/2024 12:23 PM [facility] CO2 24 21 - 32 mmol/L LAB CHEMISTRY METHOD 12/06/2024 12:23 PM [facility] Anion Gap 10 3 - 11 LAB CHEMISTRY METHOD 12/06/2024 12:23 PM [facility] Glucose 87 70 - 100 mg/dL LAB CHEMISTRY METHOD 12/06/2024 12:23 PM [facility] BUN 16 5 - 25 mg/dL LAB CHEMISTRY METHOD 12/06/2024 12:23 PM [facility] Creatinine 0.87 0.50 - 1.10 mg/dL LAB CHEMISTRY METHOD 12/06/2024 12:23 PM [facility] eGFR 76 >=60 mL/min/1. 73m2 LAB CHEMISTRY METHOD 12/06/2024 12:23 PM [facility] Comment:Calculation based on the Chronic Kidney Disease Epidemiology Collaboration (CKD-EPI) equation refit without adjustment for race. BUN/Creatinine Ratio 18.4 LAB CHEMISTRY METHOD 12/06/2024 12:23 PM [facility] Calcium 9.0 8.5 - 10.5 mg/dL LAB CHEMISTRY METHOD 12/06/2024 12:23 PM [facility] Blood Venous blood specimen / Unknown Venipuncture / Unknown 12/06/2024 5:50 AM EDT 12/06/2024 10:25 AM EDT us Naif Mixon MD LAB BLOOD ORDERABLES Final R esult [facility] [address] [place] [address], documented in this encounter Visit Diagnoses Diagnosis Hypokalemia Hypopotassemia Acute kidney failure, unspecified (CMS/[facility] V24) Acute kidney failure, unspecified Prediabetes Other abnormal glucose Other fpc (current) drug therapy documented in this encounter Care Teams [employer] Relationship Specialty Start Date End Date Naif Mixon MD [address] [place] [address] PCP - General Family Medicine 05/20/24 documented as of this encounter
--- OUTSIDE RECORDS SUMMARY | 2025-02-24 11:10 | XMS_ITS | Encounter Summary ---
Author Organization [facility] Address [address] [place] [phone] Care Team Providers Care Business Services Vice President Name Role Phone Naif Mixon MD Primary Care Provider [phone] Encounter Details Date Type Department Care Team (Latest Contact Info) Description 12/16/2024 Lab Requisition [facility] - Main Lab [address] [facility] [place] [address] Naif Mixon MD [address] [place] [address] Schizophrenia, unspecified (CMS/HCC V24, CMS/HCC V28); Other [...] Associated Diagnosis Comments BASIC METABOLIC PANEL Routine 12/19/2024 9:39 AM EDT Schizophrenia, unspecified (CMS/HCC V24, CMS/HCC V28) Other schizoaffective disorders (CMS/HCC V24, CMS/HCC V28) Major depressive disorder, single episode, moderate (CMS/HCC V24, CMS/HCC V28) COMPLETE BLOOD COUNT Routine 12/19/2024 9:13 AM EDT Schizophrenia, unspecified ([facility] V24, [facility] V28) Other schizoaffective disorders ([facility] V24, [facility] V28) Major depressive disorder, single episode, moderate ([facility] V24, [facility] V28) documented in this encounter Results * (ABNORMAL) Basic metabolic panel (12/19/2024 9:39 AM EDT) Sodium 143 133 - 145 mmol/L LAB CHEMISTRY METHOD 12/19/2024 1:05 PM [facility] Potassium 3.7 3.5 - 5.5 mmol/L LAB CHEMISTRY METHOD 12/19/2024 1:05 PM [facility] Chloride 110 96 - 110 mmol/L LAB CHEMISTRY METHOD 12/19/2024 1:05 PM [facility] CO2 24 21 - 32 mmol/L LAB CHEMISTRY METHOD 12/19/2024 1:05 PM [facility] Anion Gap 9 3 - 11 LAB CHEMISTRY METHOD 12/19/2024 1:05 PM [facility] Glucose 136(H) 70 - 100 mg/dL LAB CHEMISTRY METHOD 12/19/2024 1:05 PM [facility] BUN 18 5 - 25 mg/dL LAB CHEMISTRY METHOD 12/19/2024 1:05 PM [facility] Creatinine 0.97 0.50 - 1.10 mg/dL LAB CHEMISTRY METHOD 12/19/2024 1:05 PM [facility] eGFR 67 >=60 mL/min/1. 73m2 LAB CHEMISTRY METHOD 12/19/2024 1:05 PM [facility] Comment:Calculation based on the Chronic Kidney Disease Epidemiology Collaboration (CKD-EPI) equation refit without adjustment for race. BUN/Creatinine Ratio 18.6 LAB CHEMISTRY METHOD 12/19/2024 1:05 PM [facility] Calcium 9.2 8.5 - 10.5 mg/dL LAB CHEMISTRY METHOD 12/19/2024 1:05 PM EDT [facility] Blood Venous blood specimen / Unknown Venipuncture / Unknown 12/19/2024 9:39 AM EDT 12/19/2024 10:57 AM EDT us Naif Mixon MD LAB BLOOD ORDERABLES Final R esult [facility] [address] [place] [address], * (ABNORMAL) Complete blood count (12/19/2024 9:13 AM EDT) WBC 3.1(L) 4.8 - 10.8 K/mcL LAB [facility]OLOG[facility] RBC 4.20 3.80 - 4.80 M/mcL LAB HEMETOLOGY METHOD 12/19/2024 11:22 AM [facility] Hemoglobin 13.4 11.5 - 16.0 g/dL LAB HEMETOLOGY METHOD 12/19/2024 11:22 AM [facility] Hematocrit 40.7 35.0 - 47.0 % LAB HEMETOLOGY METHOD 12/19/2024 11:22 AM [facility] MCV 97.1 79.0 - 98.0 FL LAB HEMETOLOGY METHOD 12/19/2024 11:22 AM [facility] MCH 32.0 27.0 - 32.0 pcg LAB HEMETOLOGY METHOD 12/19/2024 11:22 AM [facility] MCHC 32.9 32.0 - 37.0 g/dL LAB HEMETOLOGY METHOD 12/19/2024 11:22 AM [facility] RDW 12.1 11.0 - 15.0 % LAB HEMETOLOGY METHOD 12/19/2024 11:22 AM EDT [facility] Platelets 201 130 - 400 K/mcL LAB HEMETOLOGY METHOD 12/19/2024 11:22 AM EDT [facility] MPV 9.3 7.0 - 11.0 FL LAB HEMETOLOGY METHOD 12/19/2024 11:22 AM EDT [facility] NRBC 0.0 <1.0 % LAB HEMETOLOGY METHOD 12/19/2024 11:22 AM EDT [facility] NRBC Absolute 0.00 <0.10 K/mcL LAB HEMETOLOGY METHOD 12/19/2024 11:22 AM EDT [facility] Blood Venous blood specimen / Unknown Venipuncture / Unknown 12/19/2024 9:13 AM EDT 12/19/2024 10:56 AM EDT us Naif Mixon MD LAB BLOOD ORDERABLES Final R esult [facility] [address] [place] [address], documented in this encounter Visit Diagnoses Diagnosis Schizophrenia, unspecified (CMS/HCC V24, CMS/HCC V28) Other schizoaffective disorders (CMS/HCC V24, CMS/HCC V28) Major depressive disorder, single episode, moderate (CMS/HCC V24, CMS/HCC V28) Major depressive disorder, single episode, moderate documented in this encounter Care Teams Business Services Vice President Relationship Specialty Start Date End Date Naif Mixon MD [address] [place] [address] PCP - General Family Medicine 05/20/24 documented as of this encounter
--- OUTSIDE RECORDS SUMMARY | 2025-02-24 11:10 | XMS_ITS | Encounter Summary ---
Author Organization [facility] Address [address] [place] [phone] Care Team Providers Care Polishing Machine Operator Helper Name Role Phone Naif Mixon MD Primary Care Provider [phone] Encounter Details Date Type Department Care Team (Late st Contact Info) Description 09/16/2024 Lab Requisition [facility] - Main Lab [address] [facility] [place] [address] Naif Mixon MD [address] [place] [address] Schizophrenia, unspecified (CMS/HCC V24, CMS/HCC V28); Major [...] Associated Diagnosis Comments COMPLETE BLOOD COUNT Routine 09/19/2024 7:16 AM EDT Schizophrenia, unspecified (CMS/HCC V24, CMS/HCC V28) Major depressive disorder, single episode, moderate (CMS/HCC V24, CMS/HCC V28) BASIC METABOLIC PANEL Routine 09/19/2024 7:16 AM EDT Schizophrenia, unspecified (CMS/HCC V24, CMS/HCC V28) Major depressive disorder, single episode, moderate (CMS/HCC V24, CMS/HCC V28) documented in this encounter Results * (ABNORMAL) Basic metabolic panel (09/19/2024 7:16 AM EDT) Sodium 142 133 - 145 mmol/L LAB CHEMISTRY METHOD 09/19/2024 11:19 AM [facility] Potassium 4.0 3.5 - 5.5 mmol/L LAB CHEMISTRY METHOD 09/19/2024 11:19 AM [facility] Chloride 108 96 - 110 mmol/L LAB CHEMISTRY METHOD 09/19/2024 11:19 AM [facility] CO2 27 21 - 32 mmol/L LAB CHEMISTRY METHOD 09/19/2024 11:19 AM [facility] Anion Gap 7 3 - 11 LAB CHEMISTRY METHOD 09/19/2024 11:19 AM [facility] Glucose 116(H) 70 - 100 mg/dL LAB CHEMISTRY METHOD 09/19/2024 11:19 AM [facility] BUN 22 5 - 25 mg/dL LAB CHEMISTRY METHOD 09/19/2024 11:19 AM [facility] Creatinine 0.82 0.50 - 1.10 mg/dL LAB CHEMISTRY METHOD 09/19/2024 11:19 AM [facility] eGFR 82 >=60 mL/min/1. 73m2 LAB CHEMISTRY METHOD 09/19/2024 11:19 AM [facility] Comment:Calculation based on the Chronic Kidney Disease Epidemiology Collaboration (CKD-EPI) equation refit without adjustment for race. BUN/Creatinine Ratio 26.8 LAB CHEMISTRY METHOD 09/19/2024 11:19 AM [facility] Calcium 9.5 8.5 - 10.5 mg/dL LAB CHEMISTRY METHOD 09/19/2024 11:19 AM [facility] Blood Venous blood specimen / Unknown Venipuncture / Unknown 09/19/2024 7:16 AM EDT 09/19/2024 10:11 AM EDT us Naif Mixon MD LAB BLOOD ORDERABLES Final R esult [facility] [address] [place] [address], * (ABNORMAL) Complete blood count (09/19/2024 7:16 AM EDT) [facility] WBC 3.6(L) 4.8 - 10.8 K/mcL LAB HEMETOLOGY METHOD 09/19/2024 10:53 AM EDT [facility] RBC 3.80 3.80 - 4.80 M/mcL LAB HEMETOLOGY METHOD 09/19/2024 10:53 AM [facility] Hemoglobin 12.0 11.5 - 16.0 g/dL LAB HEMETOLOGY METHOD 09/19/2024 10:53 AM T [facility] Hematocrit 36.4 35.0 - 47.0 % LAB HEMETOLOGY METHOD 09/19/2024 10:53 AM [facility] MCV 95.0 79.0 - 98.0 FL LAB HEMETOLOGY METHOD 09/19/2024 10:53 AM [facility] MCH 31.3 27.0 - 32.0 pcg LAB HEMETOLOGY METHOD 09/19/2024 10:53 AM T [facility] MCHC 33.0 32.0 - 37.0 g/dL LAB HEMETOLOGY METHOD 09/19/2024 10:53 AM [facility] RDW 12.9 11.0 - 15.0 % LAB HEMETOLOGY METHOD 09/19/2024 10:53 AM [facility] Platelets 202 130 - 400 K/mcL LAB HEMETOLOGY METHOD 09/19/2024 10:53 AM [facility] MPV 9.1 7.0 - 11.0 FL LAB HEMETOLOGY METHOD 09/19/2024 10:53 AM EDT [facility] NRBC 0.0 <1.0 % LAB HEMETOLOGY METHOD 09/19/2024 10:53 AM EDT [facility] NRBC Absolute 0.00 <0.10 K/mcL LAB HEMETOLOGY METHOD 09/19/2024 10:53 AM EDT [facility] Blood Venous blood specimen / Unknown Venipuncture / Unknown 09/19/2024 7:16 AM EDT 09/19/2024 10:11 AM EDT Naif Mixon MD LAB BLOOD ORDERABLES Final R esult [facility] [address] [place] [address], documented in this encounter Visit Diagnoses Diagnosis Schizophrenia, unspecified (CMS/HCC V24, CMS/HCC V28) Major depressive disorder, single episode, moderate (CMS/HCC V24, CMS/HCC V28) Major depressive disorder, single episode, moderate documented in this encounter Care Teams Polishing Machine Operator Helper Relationship Specialty Start Date End Date Naif Mixon MD [address] [place] [address] PCP - General Family Medicine 05/20/24 documented as of this encounter
--- OUTSIDE RECORDS SUMMARY | 2025-02-24 11:10 | XMS_ITS | Encounter Summary ---
Author Organization [facility] Address [address] [place] [address] Phone Care Team Providers Care Information Manager Name Role Phone Stacey Reis MD Primary Care Provider + [phone] Waylon Crespo MD Unavailable [phone] Waylon Crespo MD Unavailable [phone] Stacey Reis MD Unavailable [phone] Beryl Shirley TREATING ENGINEER HELPER Unavailable [phone] Kaleigh Adams TREATING ENGINEER HELPER Unavailable [phone] Catrina Lee TREATING ENGINEER HELPER Unavailable + [phone] Romain Bolanos TREATING ENGINEER HELPER Unavailable [email or web address] [email or web address] Yomi Bass MD Unavailable [phone] Keny Govea TREATING ENGINEER HELPER Unavailable [phone] Unknown, Unknown Primary Care Provider Yomi Gray MD Unavailable [phone] Alba Harmon MD Unavailable [phone] Pcp, Unknown Primary Care Provider Unavailabl e Encounter Details Date Type Department Care Team (Late st Contact Info) Description 05/31/2020 Procedure Pass [facility] ERENDIRA 4 ENDO DEPT [address] [facility], [address]th [place] [address] Social History Tobacco Use Types Packs/Day Years [...] EST [facility] [address] 1st [place] [address] documented as of this encounter Goals Goal [...] documented as of this encounter Care Teams Information Manager Relationship Specialty Start Date End Date Stacey Reis MD [email or web address] PCP - General 03/11/14 02/16/22 Waylon Crespo MD [address] [facility] [address] [place] [address] [email or web address] PCP - Resident PCP 11/30/1811/29 Yomi Bass MD [address] [facility] [address] [place] [address] [email or web address] PCP - Resident PCP 11/30/21 02/16/22 German Porter MD PCP - General 03/03/22 11/16/23 Pcp, Unknown PCP - General 11/17/23 Waylon Crespo MD [address] [place] [address] [address] [place] [address] [email or web address] Attributed Provider 01/08/19 07/12/22 Stacey Reis MD [address] [place] [id number] [email or web address] Insurance Assigned Provider 09/14/1909/13/22 Beryl Shirley, [address] [address] [email or web address] Work 01/24/20 07/16/20 Kaleigh Adams [facility] [address] [place], [place] [phone] [email or web address] [email or web address] Test Engineer 06/06/20 07/31/20 Catrina Lee [facility] [address] [place] [phone] [email or web address] Social Work 07/17/20 07/18/21 Romain Bolanos, [address] [phone] [email or web address] 07/19/21 Keny Govea, [facility] [address] [place] [address] [email or web address] 01/03/22 Yomi Bass MD [address] [place] [address] [address] [place] [address] [email or web address] Attributed Provider 07/12/22 06/13/23 Alba Harmon MD [address] [place] [address], [address] Floor, [address] [email or web address] [address] [place] [address] [email or web address] Insurance Assigned Provider 09/13/22 documented as of this encounter Additional Source Comments The information contained in this document represents components of the legal health record. It is not the complete legal health record.[facility]
--- OUTSIDE RECORDS SUMMARY | 2025-02-24 11:10 | XMS_ITS | Encounter Summary ---
Author Organization [facility] Address [address] [place] [phone] Care Team Providers Care Career Representative Name Role Phone Naif Mixon MD Primary Care Provider [phone] Encounter Details Date Type Department Care Team (Latest Contact Info) Description 11/11/2024 Lab Requisition [facility] - Main Lab [address] [facility] [place] [address] Naif Mixon MD [address] [place] [address] Schizophrenia, unspecified (CMS/HCC V24, CMS/HCC V28); Other [...] Associated Diagnosis Comments COMPLETE BLOOD COUNT Routine 11/14/2024 9:56 AM EDT Schizophrenia, unspecified (CMS/HCC V24, CMS/HCC V28) Other schizoaffective disorders (CMS/HCC V24, CMS/HCC V28) Major depressive disorder, single episode, moderate (CMS/HCC V24, CMS/HCC V28) BASIC METABOLIC PANEL Routine 11/14/2024 9:56 AM EDT Schizophrenia, unspecified ([facility] V24, [facility] V28) Other schizoaffective disorders ([facility] V24, [facility] V28) Major depressive disorder, single episode, moderate ([facility] V24, [facility] V28) documented in this encounter Results * (ABNORMAL) Complete blood count (11/14/2024 9:56 AM EDT) [facility] WBC 4.5(L) 4.8 - 10.8 K/mcL LAB HEMETOLOGY METHOD 11/14/2024 2:47 PM EDT [facility] RBC 3.70(L) 3.80 - 4.80 M/mcL LAB HEMETOLOGY METHOD 11/14/2024 2:[facility] Hemoglobin 11.7 11.5 - 16.0 g/dL LAB HEMETOLOGY METHOD 11/14/2024 2:47 [facility] Hematocrit 36.5 35.0 - 47.0 % LAB HEMETOLOGY METHOD 11/14/2024 2:47 PM [facility] MCV 99.2(H) 79.0 - 98.0 FL LAB HEMETOLOGY METHOD 11/14/2024 2:47 PM [facility] MCH 31.8 27.0 - 32.0 pcg LAB HEMETOLOGY METHOD 11/14/2024 2:47 PM [facility] MCHC 32.1 32.0 - 37.0 g/dL LAB HEMETOLOGY METHOD 11/14/2024 2:47 PM [facility] RDW 12.0 11.0 - 15.0 % LAB HEMETOLOGY METHOD 11/14/2024 2:47 PM [facility] Platelets 209 130 - 400 K/mcL LAB HEMETOLOGY METHOD 11/14/2024 2:47 PM [facility] MPV 9.3 7.0 - 11.0 FL LAB HEMETOLOGY METHOD 11/14/2024 2:47 PM EDT [facility] NRBC 0.0 <1.0 % LAB HEMETOLOGY METHOD 11/14/2024 2:47 PM EDT [facility] NRBC Absolute 0.00 <0.10 K/mcL LAB HEMETOLOGY METHOD 11/14/2024 2:47 PM EDT [facility] Blood Venous blood specimen / Unknown 11/14/2024 9:56 AM EDT 11/14/2024 11:47 AM EDT us Naif Mixon MD LAB BLOOD ORDERABLES Final R esult [facility] [address] [place] [address], * (ABNORMAL) Basic metabolic panel (11/14/2024 9:56 AM EDT) Sodium 143 133 - 145 mmol/L LAB CHEMISTRY METHOD 11/14/2024 12:27 PM [facility] Potassium 4.0 3.5 - 5.5 mmol/L LAB CHEMISTRY METHOD 11/14/2024 12:27 PM [facility] Chloride 112(H) 96 - 110 mmol/L LAB CHEMISTRY METHOD 11/14/2024 12:27 PM [facility] CO2 22 21 - 32 mmol/L LAB CHEMISTRY METHOD 11/14/2024 12:27 PM [facility] Anion Gap 9 3 - 11 LAB CHEMISTRY METHOD 11/14/2024 12:27 PM [facility] Glucose 168(H) 70 - 100 mg/dL LAB CHEMISTRY METHOD 11/14/2024 12:27 PM [facility] BUN 24 5 - 25 mg/dL LAB CHEMISTRY METHOD 11/14/2024 12:27 PM EDT [facility] Creatinine 0.91 0.50 - 1.10 mg/dL LAB CHEMISTRY METHOD 11/14/2024 12:27 PM EDT [facility] eGFR 72 >=60 mL/min/1. 73m2 LAB CHEMISTRY METHOD 11/14/2024 12:27 PM EDT [facility] Comment:Calculation based on the Chronic Kidney Disease Epidemiology Collaboration (CKD-EPI) equation refit without adjustment for race. BUN/Creatinine Ratio 26.4 LAB CHEMISTRY METHOD 11/14/2024 12:27 PM EDT [facility] Calcium 8.5 8.5 - 10.5 mg/dL LAB CHEMISTRY METHOD 11/14/2024 12:27 PM T [facility] Blood Venous blood specimen / Unknown Venipuncture / Unknown 11/14/2024 9:56 AM EDT 11/14/2024 11:50 AM EDT us Naif Mixon MD LAB BLOOD ORDERABLES Final R esult [facility] [address] [place] [address], documented in this encounter Visit Diagnoses Diagnosis Schizophrenia, unspecified ([facility] V24, [facility] V28) Other schizoaffective disorders ([facility] V24, [facility] V28) Major depressive disorder, single episode, moderate ([facility] V24, [facility] V28) Major depressive disorder, single episode, moderate documented in this encounter Care Teams Career Representative Relationship Specialty Start Date End Date Naif Mixon MD [address] [place] [address] PCP - General Family Medicine 05/20/24 documented as of this encounter
--- OUTSIDE RECORDS SUMMARY | 2025-02-24 11:10 | XMS_ITS | Encounter Summary ---
Author Organization [facility] Address [address] [place] [phone] Care Team Providers Care Scheduler Maintenance Name Role Phone Naif Mixon MD Primary Care Provider [phone] Encounter Details Date Type Department Care Team (Late st Contact Info) Description 10/22/2024 Lab Requisition [facility] - Main Lab [address] [facility] [place] [address] Naif Mixon MD [address] [place] [address] Schizophrenia, unspecified (CMS/HCC V24, CMS/HCC V28); Major [...] moderate documented in this encounter Care Teams Scheduler Maintenance Relationship Specialty Start Date End Date Naif Mixon MD [address] [place] [address] PCP - General Family Medicine 05/20/24 documented as of this encounter
--- OUTSIDE RECORDS SUMMARY | 2025-02-24 11:10 | XMS_ITS | Encounter Summary ---
Author Organization [facility] Address [id number] [place] [id number] Care Team Providers Care Prime Broker Name Role Phone Naif Mixon MD Primary Care Provider [phone] Encounter Details Date Type Department Care Team (Late st Contact Info) Description 11/25/2024 Lab Requisition [facility] - Main Lab [address] [facility] [place] [address] Naif Mixon MD [address] [place] [address] Schizophrenia, unspecified (CMS/HCC V24, CMS/HCC V28); Major [...] Associated Diagnosis Comments COMPLETE BLOOD COUNT Routine 11/28/2024 10:46 AM EDT Schizophrenia, unspecified (CMS/HCC V24, CMS/HCC V28) Major depressive disorder, single episode, moderate (CMS/HCC V24, CMS/HCC V28) BASIC METABOLIC PANEL Routine 11/28/2024 10:46 AM EDT Schizophrenia, unspecified (CMS/HCC V24, CMS/HCC V28) Major depressive disorder, single episode, moderate (CMS/HCC V24, CMS/HCC V28) documented in this encounter Results * (ABNORMAL) Complete blood count (11/28/2024 10:46 AM EDT) [facility] WBC 3.9(L) 4.8 - 10.8 K/mcL LAB HEMETOLOGY [facility] RBC 4.00 3.80 - 4.80 M/mcL LAB HEMETOLOGY METHOD [facility]/28[facility]24 12[facility] Hemoglobin 12.5 11.5 - 16.0 g/dL LAB HEMETOLOGY METHOD 11/28/2024 12:39 PM [facility] Hematocrit 37.6 35.0 - 47.0 % LAB HEMETOLOGY METHOD 11/28/2024 12:39 PM [facility] MCV 94.7 79.0 - 98.0 FL LAB HEMETOLOGY METHOD 11/28/2024 12:39 PM [facility] MCH 31.5 27.0 - 32.0 pcg LAB HEMETOLOGY METHOD 11/28/2024 12:39 PM [facility] LAB MCHC 33.2 32.0 - 37.0 g/dL LAB HEMETOLOGY METHOD 11/28/2024 12:39 PM [facility] RDW 12.0 11.0 - 15.0 % LAB HEMETOLOGY METHOD 11/28/2024 12:39 PM [facility] Platelets 187 130 - 400 K/mcL LAB HEMETOLOGY METHOD 11/28/2024 12:39 PM [facility] MPV 9.1 7.0 - 11.0 FL LAB HEMETOLOGY METHOD 11/28/2024 12:39 PM [facility] NRBC 0.0 <1.0 % LAB HEMETOLOGY METHOD 11/28/2024 12:39 PM EDT [facility] LAB NRBC Absolute 0.00 <0.10 K/mcL LAB HEMETOLOGY METHOD 11/28/2024 12:39 PM [facility] Blood Venous blood specimen / Unknown Venipuncture / Unknown 11/28/2024 10:46 AM EDT 11/28/2024 12:04 PM EDT us Naif Mixon MD LAB BLOOD ORDERABLES Final R esult [facility] [address] [place] [address], * (ABNORMAL) Basic metabolic panel (11/28/2024 10:46 AM EDT) Sodium 140 133 - 145 mmol/L LAB CHEMISTRY METHOD 11/28/2024 2:53 PM [facility] Potassium 3.8 3.5 - 5.5 mmol/L LAB CHEMISTRY METHOD 11/28/2024 2:53 PM [facility] Chloride 107 96 - 110 mmol/L LAB CHEMISTRY METHOD 11/28/2024 2:53 PM [facility] CO2 23 21 - 32 mmol/L LAB CHEMISTRY METHOD 11/28/2024 2:53 PM [facility] Anion Gap 10 3 - 11 LAB CHEMISTRY METHOD 11/28/2024 2:53 PM [facility] Glucose 143(H) 70 - 100 mg/dL LAB CHEMISTRY METHOD 11/28/2024 2:53 PM [facility] BUN 18 5 - 25 mg/dL LAB CHEMISTRY METHOD 11/28/2024 2:53 PM [facility] Creatinine 0.86 0.50 - 1.10 mg/dL LAB CHEMISTRY METHOD 11/28/2024 2:53 PM [facility] eGFR 77 >=60 mL/min/1. 73m2 LAB CHEMISTRY METHOD 11/28/2024 2:53 PM EDT [facility] Comment:Calculation based on the Chronic Kidney Disease Epidemiology Collaboration (CKD-EPI) equation refit without adjustment for race. BUN/Creatinine Ratio 20.9 LAB CHEMISTRY METHOD 11/28/2024 2:53 PM EDT [facility] Calcium 9.3 8.5 - 10.5 mg/dL LAB CHEMISTRY METHOD 11/28/2024 2:53 PM EDT [facility] Blood Venous blood specimen / Unknown Venipuncture / Unknown 11/28/2024 10:46 AM EDT 11/28/2024 12:04 PM EDT Naif Mixon MD LAB BLOOD ORDERABLES Final R esult [facility] [address] [place] [address], documented in this encounter Visit Diagnoses Diagnosis Schizophrenia, unspecified (CMS/HCC V24, CMS/HCC V28) Major depressive disorder, single episode, moderate (CMS/HCC V24, CMS/HCC V28) Major depressive disorder, single episode, moderate documented in this encounter Care Teams Prime Broker Relationship Specialty Start Date End Date Naif Mixon MD [address] [place] [address] PCP - General Family Medicine 05/20/24 documented as of this encounter
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
--- OUTSIDE RECORDS SUMMARY | 2025-02-24 11:10 | XMS_ITS | Encounter Summary ---
Author Organization [facility] Address [address] [place] [address] Care Team Providers Care Briquetting Machine Operator Name Role Phone Naif Mixon MD Primary Care Provider [phone] Encounter Details Date Type Department Care Team (Late st Contact Info) Description 10/19/2024 Lab Requisition [facility] - Main Lab 299 [facility] [place] [address] Naif Mixon MD [address] [place] [address] Urinary tract infection, site not specified Social History Tobacco Use Types Packs/Day Years [...] Procedure Name Priority Date/Time Associated Diagnosis Comments URINALYSIS WITH REFLEX MICROSCOPIC Routine 10/18/2024 12:15 PM EDT Urinary tract infection, site not specified URINALYSIS WITH REFLEX MICROSCOPIC Routine 10/18/2024 12:15 PM EDT Urinary tract infection, site not specified CULTURE URINE Routine 10/18/2024 12:15 PM EDT Urinary tract infection, site not specified documented in this encounter Results * (ABNORMAL) Urinalysis with reflex microscopic (10/18/2024 12:15 PM EDT) Specific [place] Urine 1.011 1.003 - 1.030 LAB URINALYSIS - AUTOMATED METHOD 10/19/2024 11:31 AM [facility] pH, Urine 7.0 5.0 - 8.0 pH LAB URINALYSIS - AUTOMATED METHOD 10/19/2024 11:31 AM [facility] Leukocytes, Urine Large(A) Negative LAB URINALYSIS - AUTOMATED METHOD 10/19/2024 11:31 AM [facility] Nitrite, Urine Positive(A) Negative LAB URINALYSIS - AUTOMATED METHOD 10/19/2024 11:31 AM [facility] Protein, Urine 30(A) <=Trace mg/dL LAB URINALYSIS - AUTOMATED METHOD 10/19/2024 11:31 AM [facility] Glucose, Urine Negative Negative mg/dL LAB URINALYSIS - AUTOMATED METHOD 10/19/2024 11:31 AM [facility] Ketones, Urine Negative Negative mg/dL LAB URINALYSIS - AUTOMATED METHOD 10/19/2024 11:31 AM [facility] Urobilinogen , Urine 0.2 0.2 - 1.0 mg/dL LAB URINALYSIS - AUTOMATED METHOD 10/19/2024 11:31 AM [facility] Bilirubin, Urine Negative Negative LAB URINALYSIS - AUTOMATED METHOD 10/19/2024 11:31 AM [facility] Blood, Urine Small(A) Negative LAB URINALYSIS - AUTOMATED METHOD 10/19/2024 11:31 AM [facility] RBC, Urine 5.3(H) 0 - 4 /HPF LAB URINALYSIS - AUTOMATED METHOD 10/19/2024 11:31 AM [facility] WBC, Urine 1,103.7(H) 0 - 4 /HPF LAB URINALYSIS - AUTOMATED METHOD 10/19/2024 11:31 AM [facility] Squamous Epithelial, Urine 31 0 - 60 /LPF LAB URINALYSIS - AUTOMATED METHOD 10/19/2024 11:31 AM EDT [facility] Bacteria, Urine Many(A) Negative /HPF LAB URINALYSIS - AUTOMATED METHOD 10/19/2024 11:31 AM EDT [facility] Hyaline Casts, Urine 2.5 0 - 3 /LPF LAB URINALYSIS - AUTOMATED METHOD 10/19/2024 11:31 AM EDT [facility] Urine Urine specimen obtained by clean catch procedure / Unknown Non-blood Collection / Unknown 10/18/2024 12:15 PM EDT 10/19/2024 9:36 AM EDT us Naif Mixon MD LAB URINE ORDERABLES Final R esult [facility] [address] [place] [address], * (ABNORMAL) Culture urine (10/18/2024 12:15 PM EDT) Culture, Urine >100,000 CFU/mL Escherichia coli(A) ANA 10/21/2024 11:21 AM EDT [facility] Urine Urine specimen obtained by clean catch procedure / Unknown Non-blood Collection / Unknown 10/18/2024 12:15 PM EDT 10/19/2024 9:36 AM EDT Narrative [facility] - 10/21/2024 11:21 AM EDT Additional colony types present in insignificant amounts. Organism Antibiotic Method Susceptibility Escherichia coli Amoxicillin/Clavulanate ANA <=2 ug/ml: Susceptible Escherichia coli Ampicillin/Sulbactam ANA <=2 ug/ml: Susceptible Escherichia coli Piperacillin/Tazobactam ANA <=4 ug/ml: Susceptible Escherichia coli Cefazolin (Urine) ANA <=1 ug/ml: Susceptible Escherichia coli Cefoxitin ANA <=4 ug/ml: Susceptible Escherichia coli Ceftazidime ANA <=0.5 ug/ml: Susceptible Escherichia coli Ceftriaxone ANA <=0.25 ug/ml: Susceptible Escherichia coli Cefepime ANA <=0.12 ug/ml: Susceptible Escherichia coli Meropenem ANA <=0.25 ug/ml: Susceptible Escherichia coli Amikacin ANA 2 ug/ml: Susceptible Escherichia coli Gentamicin ANA <=1 ug/ml: Susceptible Escherichia coli Ciprofloxacin ANA 0.5 ug/ml: Intermediate Escherichia coli Levofloxacin ANA 1 ug/ml: Intermediate Escherichia coli Nitrofurantoin ANA <=16 ug/ml: Susceptible Escherichia coli Trimethoprim/Sulfamethoxazole ANA <=20 ug/ml: Susceptible Naif Mixon MD LAB MICROBIOLOGY - GENERAL O RDERABLES Final Result [facility] ([facility]) [facility] [address] [place] [address], documented in this encounter Visit Diagnoses Diagnosis Urinary tract infection, site not specified documented in this encounter Care Teams Briquetting Machine Operator Relationship Specialty Start Date End Date Naif Mixon MD [address] [place] [address] PCP - General Family Medicine 05/20/24 documented as of this encounter
--- OUTSIDE RECORDS SUMMARY | 2025-02-24 11:10 | XMS_ITS | Encounter Summary ---
Author Organization [facility] Address [address] [place] [address] Care Team Providers Care Control Specialist Name Role Phone Naif Mixon MD Primary Care Provider [phone] Encounter Details Date Type Department Care Team (Latest Contact Info) Description 09/23/2024 Lab Requisition [facility] - Main Lab 299 [facility] [place] [address] Naif Mixon MD [address] [place] [address] Schizophrenia, unspecified (CMS/HCC V24, CMS/HCC V28); Other [...] Associated Diagnosis Comments COMPLETE BLOOD COUNT Routine 09/26/2024 7:12 AM EDT Schizophrenia, unspecified (CMS/HCC V24, CMS/HCC V28) Other schizoaffective disorders (CMS/HCC V24, CMS/HCC V28) Major depressive disorder, single episode, moderate (CMS/HCC V24, CMS/HCC V28) BASIC METABOLIC PANEL Routine 09/26/2024 7:12 AM EDT Schizophrenia, unspecified ([facility] V24, [facility] V28) Other schizoaffective disorders ([facility] V24, [facility] V28) Major depressive disorder, single episode, moderate ([facility] V24, [facility] V28) documented in this encounter Results * (ABNORMAL) Basic metabolic panel (09/26/2024 7:12 AM EDT) Sodium 143 133 - 145 mmol/L LAB CHEMISTRY METHOD 09/26/2024 12:20 PM [facility] Potassium 4.2 3.5 - 5.5 mmol/L LAB CHEMISTRY METHOD 09/26/2024 12:20 PM [facility] Chloride 111(H) 96 - 110 mmol/L LAB CHEMISTRY METHOD 09/26/2024 12:20 PM [facility] CO2 24 21 - 32 mmol/L LAB CHEMISTRY METHOD 09/26/2024 12:20 PM [facility] Anion Gap 8 3 - 11 LAB CHEMISTRY METHOD 09/26/2024 12:20 PM [facility] Glucose 107(H) 70 - 100 mg/dL LAB CHEMISTRY METHOD 09/26/2024 12:20 PM [facility] BUN 22 5 - 25 mg/dL LAB CHEMISTRY METHOD 09/26/2024 12:20 PM [facility] Creatinine 0.77 0.50 - 1.10 mg/dL LAB CHEMISTRY METHOD 09/26/2024 12:20 PM [facility] eGFR 88 >=60 mL/min/1. 73m2 LAB CHEMISTRY METHOD 09/26/2024 12:20 PM [facility] Comment:Calculation based on the Chronic Kidney Disease Epidemiology Collaboration (CKD-EPI) equation refit without adjustment for race. BUN/Creatinine Ratio 28.6 LAB CHEMISTRY METHOD 09/26/2024 12:20 PM [facility] Calcium 9.3 8.5 - 10.5 mg/dL LAB CHEMISTRY METHOD 09/26/2024 12:20 PM EDT [facility] Blood Venous blood specimen / Unknown Venipuncture / Unknown 09/26/2024 7:12 AM EDT 09/26/2024 10:03 AM EDT Naif Mixon MD LAB BLOOD ORDERABLES Final R esult [facility] [address] [place] [address], * (ABNORMAL) Complete blood count (09/26/2024 7:12 AM EDT) WBC 3.4(L) 4.8 - 10.8 K/mcL LAB HEMETOLOGY METHOD 09/26/2024 10:50 AM [facility] RBC 3.60(L) 3.80 - 4.80 M/mcL LAB HEMETOLOGY METHOD 09/26/2024 10:50 AM [facility] Hemoglobin 11.5 11.5 - 16.0 g/dL LAB HEMETOLOGY METHOD 09/26/2024 10:50 AM [facility] Hematocrit 34.4(L) 35.0 - 47.0 % LAB HEMETOLOGY METHOD 09/26/2024 10:50 AM [facility] MCV 95.8 79.0 - 98.0 FL LAB HEMETOLOGY METHOD 09/26/2024 10:50 AM [facility] MCH 32.0 27.0 - 32.0 pcg LAB HEMETOLOGY METHOD 09/26/2024 10:50 AM [facility] MCHC 33.4 32.0 - 37.0 g/dL LAB HEMETOLOGY METHOD 09/26/2024 10:50 AM [facility] RDW 13.1 11.0 - 15.0 % LAB HEMETOLOGY METHOD 09/26/2024 10:50 AM EDT [facility] Platelets 174 130 - 400 K/mcL LAB HEMETOLOGY METHOD 09/26/2024 10:50 AM EDT [facility] MPV 9.3 7.0 - 11.0 FL LAB HEMETOLOGY METHOD 09/26/2024 10:50 AM EDT [facility] NRBC 0.0 <1.0 % LAB HEMETOLOGY METHOD 09/26/2024 10:50 AM EDT [facility] NRBC Absolute 0.00 <0.10 K/mcL LAB HEMETOLOGY METHOD 09/26/2024 10:50 AM EDT [facility] Blood Venous blood specimen / Unknown Venipuncture / Unknown 09/26/2024 7:12 AM EDT 09/26/2024 10:03 AM EDT us Naif Mixon MD LAB BLOOD ORDERABLES Final R esult [facility] [address] [place] [address], documented in this encounter Visit Diagnoses Diagnosis Schizophrenia, unspecified ([facility] V24, [facility] V28) Other schizoaffective disorders ([facility] V24, [facility] V28) Major depressive disorder, single episode, moderate ([facility] V24, [facility] V28) Major depressive disorder, single episode, moderate documented in this encounter Care Teams Control Specialist Relationship Specialty Start Date End Date Naif Mixon MD [address] [place] [address] PCP - General Family Medicine 05/20/24 documented as of this encounter
--- OUTSIDE RECORDS SUMMARY | 2025-02-24 11:10 | XMS_ITS | Encounter Summary ---
Author Organization [facility] Address [address] [place] [address] Care Team Providers Care Loaders Name Role Phone Naif Mixon MD Primary Care Provider [phone] Encounter Details Date Type Department Care Team (Late st Contact Info) Description 11/24/2024 Lab Requisition [facility] - Main Lab 299 [facility] [place] [address] Naif Mixon MD [address] [place] [address] Urinary tract infection, site not specified Social [...] Diagnosis Comments URINALYSIS WITH REFLEX MICROSCOPIC Routine 11/23/2024 4:00 PM EDT Urinary tract infection, site not specified URINALYSIS WITH REFLEX MICROSCOPIC Routine 11/23/2024 4:00 PM EDT Urinary tract infection, site not specified CULTURE URINE Routine 11/23/2024 4:00 PM EDT Urinary tract infection, site not specified documented in this encounter Results * (ABNORMAL) Urinalysis with reflex microscopic (11/23/2024 4:00 PM EDT) Specific [place] Urine 1.011 1.003 - 1.030 LAB URINALYSIS - AUTOMATED METHOD 11/24/2024 10:12 AM [facility] pH, Urine 6.5 5.0 - 8.0 pH LAB URINALYSIS - AUTOMATED METHOD 11/24/2024 10:12 AM [facility] Leukocytes, Urine Large(A) Negative LAB URINALYSIS - AUTOMATED METHOD 11/24/2024 10:12 AM [facility] Nitrite, Urine Negative Negative LAB URINALYSIS - AUTOMATED METHOD 11/24/2024 10:12 AM [facility] Protein, Urine 30(A) <=Trace mg/dL LAB URINALYSIS - AUTOMATED METHOD 11/24/2024 10:12 AM [facility] Glucose, Urine Negative Negative mg/dL LAB URINALYSIS - AUTOMATED METHOD 11/24/2024 10:12 AM [facility] Ketones, Urine Negative Negative mg/dL LAB URINALYSIS - AUTOMATED METHOD 11/24/2024 10:12 AM [facility] Urobilinogen , Urine 0.2 0.2 - 1.0 mg/dL LAB URINALYSIS - AUTOMATED METHOD 11/24/2024 10:12 AM [facility] Bilirubin, Urine Negative Negative LAB URINALYSIS - AUTOMATED METHOD 11/24/2024 10:12 AM [facility] Blood, Urine Small(A) Negative LAB URINALYSIS - AUTOMATED METHOD 11/24/2024 10:12 AM [facility] RBC, Urine 8.2(H) 0 - 4 /HPF LAB URINALYSIS - AUTOMATED METHOD 11/24/2024 10:12 AM [facility] WBC, Urine 282.4(H) 0 - 4 /HPF LAB URINALYSIS - AUTOMATED METHOD 11/24/2024 10:12 AM [facility] Squamous Epithelial, Urine 42 0 - 60 /LPF LAB URINALYSIS - AUTOMATED METHOD 11/24/2024 10:12 AM EDT [facility] Bacteria, Urine Moderate(A) Negative /HPF LAB URINALYSIS - AUTOMATED METHOD 11/24/2024 10:12 AM EDT [facility] Hyaline Casts, Urine 2.0 0 - 3 /LPF LAB URINALYSIS - AUTOMATED METHOD 11/24/2024 10:12 AM EDT [facility] Urine Urine specimen obtained by clean catch procedure / Unknown 11/23/2024 4:00 PM EDT 11/24/2024 9:24 AM EDT us Naif Mixon MD LAB URINE ORDERABLES Final R esult [facility] [address] [place] [address], * (ABNORMAL) Culture urine (11/23/2024 4:00 PM EDT) Culture, Urine 50,000-100,000 CFU/mL Escherichia coli(A) ANA 11/26/2024 10:13 AM EDT [facility] Comment: This is an edited result. Previous organism was Gram negative bacilli on 11/25/2024 at 0741 EDT. Urine Urine specimen obtained by clean catch procedure / Unknown 11/23/2024 4:00 PM EDT 11/24/2024 9:24 AM EDT Narrative [facility] - 11/26/2024 10:13 AM EDT Additional colony types present in [...] <=0.25 ug/ml: Susceptible Escherichia coli Amikacin ANA <=1 ug/ml: Susceptible Escherichia coli Gentamicin ANA <=1 ug/ml: Susceptible Escherichia coli Ciprofloxacin ANA 0.5 ug/ml: Intermediate Escherichia coli Levofloxacin ANA 1 ug/ml: Intermediate Escherichia coli Nitrofurantoin ANA <=16 ug/ml: Susceptible Escherichia coli Trimethoprim/Sulfamethoxazole ANA <=20 ug/ml: Susceptible us Naif Mixon MD LAB MICROBIOLOGY - GENERAL O RDERABLES Final Result Performing Organization Address City/State/[facility] Co de Phone Number [facility] [address] [place] [address], documented in this encounter Visit Diagnoses Diagnosis Urinary tract infection, site not specified documented in this encounter Care Teams Loaders Relationship Specialty Start Date End Date Naif Mixon MD [address] [place] [address] PCP - General Family Medicine 05/20/24 documented as of this encounter
--- OUTSIDE RECORDS SUMMARY | 2025-02-24 11:10 | XMS_ITS | Encounter Summary ---
Author Organization [facility] Address [address] [place] [address] Care Team Providers Care Sander And Buffer Name Role Phone Naif Mixon MD Primary Care Provider [phone] Encounter Details Date Type Department Care Team (Latest Contact Info) Description 12/31/2024 Lab Requisition [facility] - Main Lab [address] [facility] [place] [address] Naif Mixon MD [address] [place] [address] Schizophrenia, unspecified ([facility] V24, [facility] V28); Other schizoaffective disorders (CMS/HCC V24, CMS/HCC [...] moderate documented in this encounter Care Teams Sander And Buffer Relationship Specialty Start Date End Date Naif Mixon MD [address] [place] [address] PCP - General Family Medicine 05/20/24 documented as of this encounter
--- OUTSIDE RECORDS SUMMARY | 2025-02-24 11:10 | XMS_ITS | Encounter Summary ---
Author Organization [facility] Address [address] [place] [address] [address] [place] [address] Phone Care Team Providers Care Accounting Representative Name Role Phone Stacey Reis MD Primary Care Provider + [phone] Waylon Crespo MD Unavailable [phone] Waylon Crespo MD Unavailable [phone] Stacey Reis MD Unavailable [phone] Beryl Shirley [employer] Unavailable [phone] Kaleigh Adams [employer] Unavailable [phone] GustavoCatrina Nelson [employer] Unavailable + [phone] Romain Bolanos [employer] Unavailable [email or web address] Yomi Bass MD Unavailable [phone] Keny Govea [employer] Unavailable [phone] Unknown, Unknown Primary Care Provider Yomi Gray MD Unavailable [phone] Alba Harmon MD Unavailable [phone] Pcp, Unknown Primary Care Provider Unavailabl e Encounter Details Date Type Department Care Team (Late st Contact Info) Description 05/23/2020 Procedure Pass [facility], [address] [facility], 2nd Floor, [address] [place] [address] Social History Tobacco Use Types Packs/Day Years [...] EST [facility] [address] 1[address] [place] [address] documented as of this encounter Goals Goal [...] documented as of this encounter Care Teams Accounting Representative Relationship Specialty Start Date End Date Stacey Reis MD [email or web address] PCP - General 03/11/14 02/16/22 Waylon Crespo MD [address] [place] [address] [phone] [place] [address] [email or web address] PCP - Resident PCP 11/30/1811/29 Yomi Bass MD 15 [facility] [address] [place] [address] [email or web address] PCP - Resident PCP 11/30/21 02/16/22 German Poretr MD PCP - General 03/03/22 11/16/23 Pcp, Unknown PCP - General 11/17/23 Waylon Crespo MD [address] [place] [address] [address] [place] [address] [email or web address] Partners Attributed Provider 01/08/19 07/12/22 Stacey Reis MD [address] [place] [address] [email or web address] Assigned Provider 09/14/1909/13/22 Beryl Shirley, [address] [address] [email or web address] Social Work 01/24/20 07/16/20 Kaleigh Adams [facility] [address] [place], [place] [phone] [email or web address] [email or web address] Instructor 06/06/20 07/31/20 GustavoCatrina Nelson [facility] [address] [place] [phone] [email or web address] Social Work 07/17/20 07/18/21 Romain Bolanos, [address] [address] [email or web address] 07/19/21 Keny Govea, [facility] [address] [place] [address] [email or web address] 01/03/22 Yomi Bass MD [address] [place] [address] [address] [place] [address] [email or web address] Partners Attributed Provider 07/12/22 06/13/23 Alba Harmon MD [address] [place] [address], 10th Floor, [address] [place] [address] [address] [place] [address] [email or web address] Insurance Assigned Provider 09/13/22 documented as of this encounter Additional Source Comments The information contained in this document represents components of the legal health record. It is not the complete legal health record.[facility]
--- OUTSIDE RECORDS SUMMARY | 2025-02-24 11:10 | XMS_ITS | Encounter Summary ---
Author Organization [facility] Address [address] [place] [address] Care Team Providers Care Plug Assembler Name Role Phone Naif Mixon MD Primary Care Provider [phone] Encounter Details Date Type Department Care Team (Late st Contact Info) Description 12/08/2024 Lab Requisition [facility] - Main Lab 299 [facility] [place] [address] Naif Mixon MD [address] [place] [address] Schizophrenia, unspecified (CMS/HCC V24, CMS/HCC V28); Major [...] Associated Diagnosis Comments COMPLETE BLOOD COUNT Routine 12/12/2024 10:02 AM EDT Schizophrenia, unspecified (CMS/HCC V24, CMS/HCC V28) Major depressive disorder, single episode, moderate (CMS/HCC V24, CMS/HCC V28) BASIC METABOLIC PANEL Routine 12/12/2024 10:02 AM EDT Schizophrenia, unspecified (CMS/HCC V24, CMS/HCC V28) Major depressive disorder, single episode, moderate (CMS/HCC V24, CMS/HCC V28) documented in this encounter Results * (ABNORMAL) Basic metabolic panel (12/12/2024 10:02 AM EDT) Sodium 142 133 - 145 mmol/L LAB CHEMISTRY METHOD 12/12/2024 11:[address] [facility] Potassium 3.9 3.5 - 5.5 mmol/L LAB CHEMISTRY METHOD 12/12/2024 11:[address] [facility] Chloride 110 96 - 110 mmol/L LAB CHEMISTRY METHOD 12/12/2024 11:[address] [facility] CO2 26 21 - 32 mmol/L LAB CHEMISTRY METHOD 12/12/2024 11:[address] [facility] Anion Gap 6 3 - 11 LAB CHEMISTRY METHOD 12/12/2024 11:[address] [facility] Glucose 110(H) 70 - 100 mg/dL LAB CHEMISTRY METHOD 12/12/2024 11:[address] [facility] BUN 18 5 - 25 mg/dL LAB CHEMISTRY METHOD 12/12/2024 11:[address] [facility] Creatinine 0.94 0.50 - 1.10 mg/dL LAB CHEMISTRY METHOD 12/12/2024 11:[address] [facility] eGFR 70 >=60 mL/min/1. 73m2 LAB CHEMISTRY METHOD 12/12/2024 11:[address] [facility] Comment:Calculation based on the Chronic Kidney Disease Epidemiology Collaboration (CKD-EPI) equation refit without adjustment for race. BUN/Creatinine Ratio 19.1 LAB CHEMISTRY METHOD 12/12/2024 11:[address] [facility] Calcium 9.2 8.5 - 10.5 mg/dL LAB CHEMISTRY METHOD 12/12/2024 11:[address] [facility] Blood Venous blood specimen / Unknown Venipuncture / Unknown 12/12/2024 10:02 AM EDT 12/12/2024 10:59 AM EDT us Naif Mixon MD LAB BLOOD ORDERABLES Final R esult [facility] [address] [place] [address], * (ABNORMAL) Complete blood count (12/12/2024 10:02 AM EDT) WBC 3.2(L) 4.8 - 10.8 K/mcL LAB HEMETOLOGY METHOD 12/12/2024 11:15 AM EDT [facility] RBC 4.10 3.80 - 4.80 M/mcL LAB HEMETOLOGY METHOD 12/12/2024 11:[address] [facility] Hemoglobin 12.9 11.5 - 16.0 g/dL LAB HEMETOLOGY METHOD 12/12/2024 11:15 AM T [facility] Hematocrit 39.0 35.0 - 47.0 % LAB HEMETOLOGY METHOD 12/12/2024 11:15 AM EDT [facility] MCV 96.3 79.0 - 98.0 FL LAB HEMETOLOGY METHOD 12/12/2024 11:[address] [facility] MCH 31.9 27.0 - 32.0 pcg LAB HEMETOLOGY METHOD 12/12/2024 11:15 AM T [facility] MCHC 33.1 32.0 - 37.0 g/dL LAB HEMETOLOGY METHOD 12/12/2024 11:15 AM T [facility] RDW 12.2 11.0 - 15.0 % LAB HEMETOLOGY METHOD 12/12/2024 11:[address] [facility] Platelets 201 130 - 400 K/mcL LAB HEMETOLOGY METHOD 12/12/2024 11:[address] [facility] MPV 9.2 7.0 - 11.0 FL LAB HEMETOLOGY METHOD 12/12/2024 11:15 AM EDT [facility] NRBC 0.0 <1.0 % LAB HEMETOLOGY METHOD 12/12/2024 11:15 AM EDT [facility] NRBC Absolute 0.00 <0.10 K/mcL LAB HEMETOLOGY METHOD 12/12/2024 11:15 AM EDT [facility] Blood Venous blood specimen / Unknown Venipuncture / Unknown 12/12/2024 10:02 AM EDT 12/12/2024 11:00 AM EDT Naif Mixon MD LAB BLOOD ORDERABLES Final R esult [facility] [address] [place] [address], documented in this encounter Visit Diagnoses Diagnosis Schizophrenia, unspecified (CMS/HCC V24, CMS/HCC V28) Major depressive disorder, single episode, moderate (CMS/HCC V24, CMS/HCC V28) Major depressive disorder, single episode, moderate documented in this encounter Care Teams Plug Assembler Relationship Specialty Start Date End Date Naif Mixon MD [address] [place] [address] PCP - General Family Medicine 05/20/24 documented as of this encounter
--- OUTSIDE RECORDS SUMMARY | 2025-02-24 11:10 | XMS_ITS | Encounter Summary ---
Author Organization [facility] Address [address] [place] [address] [address] [place] [address] Phone Care Team Providers Care Debone Supervisor Name Role Phone Stacey Reis MD Primary Care Provider + [phone] Waylon Crespo MD Unavailable [phone] Waylon Crespo MD Unavailable [phone] Stacey Reis MD Unavailable [phone] Beryl Shirley [employer] Unavailable [phone] Kaleigh Adams [employer] Unavailable [phone] GustavoCatrina Nelson [employer] Unavailable + [phone] Romain Bolanos [employer] Unavailable [email or web address] [email or web address] Yomi Bass MD Unavailable [phone] Keny Govea [employer] Unavailable [phone] Unknown, Unknown Primary Care Provider Yomi Gray MD Unavailable [phone] Alba Harmon MD Unavailable [phone] Pcp, Unknown Primary Care Provider Unavailabl e Encounter Details Date Type Department Care Team (Late st Contact Info) Description 05/23/2020 Procedure Pass [facility] CT, [place] [address] [facility], 2nd Floor, [address] [place] [address] Social History Tobacco Use Types Packs/Day Years [...] EST [facility] [address] [place] [address] documented as of this encounter Goals Goal [...] documented as of this encounter Care Teams Debone Supervisor Relationship Specialty Start Date End Date Stacey Reis MD [email or web address] PCP - General 03/11/14 02/16/22 Waylon Crespo MD [address] [place] [address] [phone] [place] [address] [email or web address] PCP - Resident PCP 11/30/1811/29 Yomi Bass MD 15 [facility] [address]30 [place] [address] [email or web address] PCP - Resident PCP 11/30/21 02/16/22 German Porter MD PCP - General 03/03/22 11/16/23 Pcp, Unknown PCP - General 11/17/23 Waylon Crespo MD [address] [place] [address] [phone] [place] [address] [email or web address] Partners Attributed Provider 01/08/19 07/12/22 Stacey Reis MD [address] [place] [address] [email or web address] Insurance Assigned Provider 09/14/1909/13/22 Beryl Shirley, [address] [address] [email or web address] Social Work 01/24/20 07/16/20 Kaleigh Adams [facility] [address] [place], [place] [phone] [email or web address] 06/06/20 07/31/20 GustavoCatrina Nelson [facility] [address] [place] [address] [email or web address] Social Work 07/17/20 07/18/21 Romain Bolanos, [address] [phone] [email or web address] Social Work 07/19/21 Keny Govea, [facility] [address] [place] [address] [email or web address] Social Work 01/03/22 Yomi Bass MD [address] [place] [address] [address] [place] [address] [email or web address] Partners Attributed Provider 07/12/22 06/13/23 Alba Harmon MD [address] [place] [address], 10th Floor, [address] [place] [address] [address] [place] [address] [email or web address] Insurance Assigned Provider 09/13/22 documented as of this encounter Additional Source Comments The information contained in this document represents components of the legal health record. It is not the complete legal health record.[facility]
--- OUTSIDE RECORDS SUMMARY | 2025-02-24 11:10 | XMS_ITS | Encounter Summary ---
Author Organization [facility] Address [address] [place] [phone] Care Team Providers Care Aerial Advertiser Name Role Phone aNif Mixon MD Primary Care Provider [phone] Encounter Details Date Type Department Care Team (Late st Contact Info) Description 11/24/2024 Lab Requisition [facility] Lab [address] [place] [address] Naif Mixon MD [address] [place] [address] Hypokalemia Social History Tobacco Use Types Packs/Day [...] Associated Diagnosis Comments COMPLETE BLOOD COUNT Routine 11/24/2024 7:00 AM EDT Hypokalemia BASIC METABOLIC PANEL Routine 11/24/2024 7:00 AM EDT Hypokalemia documented in this encounter Results * (ABNORMAL) Basic metabolic panel (11/24/2024 7:00 AM EDT) Sodium 139 133 - 145 mmol/L LAB CHEMISTRY METHOD 11/24/2024 10:34 AM EDT [facility] Potassium 3.9 3.5 - 5.5 mmol/L LAB CHEMISTRY METHOD 11/24/2024 10:34 AM [facility] Chloride 108 96 - 110 mmol/L LAB CHEMISTRY METHOD 11/24/2024 10:34 AM [facility] CO2 25 21 - 32 mmol/L LAB CHEMISTRY METHOD 11/24/2024 10:34 AM [facility] Anion Gap 6 3 - 11 LAB CHEMISTRY METHOD 11/24/2024 10:34 AM [facility] Glucose 117(H) 70 - 100 mg/dL LAB CHEMISTRY METHOD 11/24/2024 10:34 AM [facility] BUN 17 5 - 25 mg/dL LAB CHEMISTRY METHOD 11/24/2024 10:34 AM [facility] Creatinine 0.86 0.50 - 1.10 mg/dL LAB CHEMISTRY METHOD 11/24/2024 10:34 AM [facility] LAB eGFR 77 >=60 mL/min/1. 73m2 LAB CHEMISTRY METHOD 11/24/2024 10:34 AM [facility] LAB Comment:Calculation based on the Chronic Kidney Disease Epidemiology Collaboration (CKD-EPI) equation refit without adjustment for race. BUN/Creatinine Ratio 19.8 LAB CHEMISTRY METHOD 11/24/2024 10:34 AM [facility] LAB Calcium 9.3 8.5 - 10.5 mg/dL LAB CHEMISTRY METHOD 11/24/2024 10:34 AM [facility] LAB Blood Venous blood specimen / Unknown Venipuncture / Unknown 11/24/2024 7:00 AM EDT 11/24/2024 9:19 AM EDT us Naif Mixon MD LAB BLOOD ORDERABLES Final R esult [facility] [address] [place] [address], * (ABNORMAL) Complete blood count (11/24/2024 7:00 AM EDT) [facility] WBC 3.5(L) 4.8 - 10.8 K/mcL LAB HEMETOLOGY METHOD 11/24/2024 10:08 AM [facility] RBC 3.80 3.80 - 4.80 M/mcL LAB HEMETOLOGY METHOD 11/24/2024 10:08 AM [facility] Hemoglobin 12.3 11.5 - 16.0 g/dL LAB HEMETOLOGY METHOD 11/24/2024 10:08 AM [facility] LAB Hematocrit 36.8 35.0 - 47.0 % LAB HEMETOLOGY METHOD 11/24/2024 10:08 AM [facility] LAB MCV 96.8 79.0 - 98.0 FL LAB HEMETOLOGY METHOD 11/24/2024 10:08 AM [facility] LAB MCH 32.4(H) 27.0 - 32.0 pcg LAB HEMETOLOGY METHOD 11/24/2024 10:08 AM [facility] LAB MCHC 33.4 32.0 - 37.0 g/dL LAB HEMETOLOGY METHOD 11/24/2024 10:08 AM [facility] LAB RDW 12.1 11.0 - 15.0 % LAB HEMETOLOGY METHOD 11/24/2024 10:08 AM [facility] LAB Platelets 188 130 - 400 K/mcL LAB HEMETOLOGY METHOD 11/24/2024 10:08 AM [facility] LAB MPV 9.1 7.0 - 11.0 FL LAB HEMETOLOGY METHOD 11/24/2024 10:08 AM [facility] LAB NRBC 0.0 <1.0 % LAB HEMETOLOGY METHOD 11/24/2024 10:08 AM [facility] LAB NRBC Absolute 0.00 <0.10 K/mcL LAB HEMETOLOGY METHOD 11/24/2024 10:08 AM EDT [facility] LAB Blood Venous blood specimen / Unknown Venipuncture / Unknown 11/24/2024 7:00 AM EDT 11/24/2024 9:19 AM EDT us Naif Mixon MD LAB BLOOD ORDERABLES Final R esult [facility] [address] [place] [address], documented in this encounter Visit Diagnoses Diagnosis Hypokalemia Hypopotassemia documented in this encounter Care Teams Aerial Advertiser Relationship Specialty Start Date End Date Naif Mixon MD [address] [place] [address] PCP - General Family Medicine 05/20/24 documented as of this encounter
--- OUTSIDE RECORDS SUMMARY | 2025-02-24 11:10 | XMS_ITS | Encounter Summary ---
Author Organization [facility] Address [address] [place] [phone] Care Team Providers Care Machine Chain Maker Name Role Phone Naif Mixon MD Primary Care Provider [phone] Encounter Details Date Type Department Care Team (Latest Contact Info) Description 10/15/2024 Lab Requisition [facility] - Main Lab [address] [facility] [place] [address] Naif Mixon MD [address] [place] [address] Schizophrenia, unspecified (CMS/HCC V24, CMS/HCC V28); Major [...] Associated Diagnosis Comments COMPLETE BLOOD COUNT Routine 10/17/2024 9:41 AM EDT Schizophrenia, unspecified (CMS/HCC V24, CMS/HCC V28) Major depressive disorder, single episode, moderate (CMS/HCC V24, CMS/HCC V28) Other schizoaffective disorders (CMS/HCC V24, CMS/HCC V28) BASIC METABOLIC PANEL Routine 10/17/2024 9:41 AM EDT Schizophrenia, unspecified ([facility] V24, [facility] V28) Major depressive disorder, single episode, moderate ([facility] V24, [facility] V28) Other schizoaffective disorders ([facility] V24, [facility] V28) documented in this encounter Results * (ABNORMAL) Basic metabolic panel (10/17/2024 9:41 AM EDT) Sodium 139 133 - 145 mmol/L LAB CHEMISTRY METHOD 10/17/2024 1:05 PM [facility] Potassium 3.9 3.5 - 5.5 mmol/L LAB CHEMISTRY METHOD 10/17/2024 1:05 PM [facility] Chloride 106 96 - 110 mmol/L LAB CHEMISTRY METHOD 10/17/2024 1:05 PM [facility] CO2 26 21 - 32 mmol/L LAB CHEMISTRY METHOD 10/17/2024 1:05 PM [facility] LAB Anion Gap 7 3 - 11 LAB CHEMISTRY METHOD 10/17/2024 1:05 PM [facility] Glucose 144(H) 70 - 100 mg/dL LAB CHEMISTRY METHOD 10/17/2024 1:05 PM [facility] BUN 23 5 - 25 mg/dL LAB CHEMISTRY METHOD 10/17/2024 1:05 PM [facility] Creatinine 0.96 0.50 - 1.10 mg/dL LAB CHEMISTRY METHOD 10/17/2024 1:05 PM [facility] LAB eGFR 68 >=60 mL/min/1. 73m2 LAB CHEMISTRY METHOD 10/17/2024 1:05 PM [facility] LAB Comment:Calculation based on the Chronic Kidney Disease Epidemiology Collaboration (CKD-EPI) equation refit without adjustment for race. BUN/Creatinine Ratio 24.0 LAB CHEMISTRY METHOD 10/17/2024 1:05 PM [facility] Calcium 9.4 8.5 - 10.5 mg/dL LAB CHEMISTRY METHOD 10/17/2024 1:05 PM EDT [facility] Blood Venous blood specimen / Unknown Venipuncture / Unknown 10/17/2024 9:41 AM EDT 10/17/2024 11:27 AM EDT us Naif Mixon MD LAB BLOOD ORDERABLES Final R esult [facility] [address] [place] [address], * (ABNORMAL) Complete blood count (10/17/2024 9:41 AM EDT) WBC 4.0(L) 4.8 - 10.8 K/mcL LAB HEMETOLOGY METHOD 10/17/2024 12:18 PM EDT [facility] RBC 4.00 3.80 - 4.80 M/mcL LAB HEMETOLOGY METHOD [facility] Hemoglobin 12.8 11.5 - 16.0 g/dL LAB HEMETOLOGY METHOD 10/17/2024 12:18 PM [facility] Hematocrit 38.9 35.0 - 47.0 % LAB HEMETOLOGY METHOD 10/17/2024 12:18 PM T [facility] MCV 98.0 79.0 - 98.0 FL LAB HEMETOLOGY METHOD 10/17/2024 12:18 PM [facility] MCH 32.2(H) 27.0 - 32.0 pcg LAB HEMETOLOGY METHOD 10/17/2024 12:18 PM [facility] MCHC 32.9 32.0 - 37.0 g/dL LAB HEMETOLOGY METHOD 10/17/2024 12:18 PM [facility] RDW 12.3 11.0 - 15.0 % LAB HEMETOLOGY METHOD 10/17/2024 12:18 PM EDT [facility] Platelets 204 130 - 400 K/mcL LAB HEMETOLOGY METHOD 10/17/2024 12:18 PM EDT [facility] MPV 9.1 7.0 - 11.0 FL LAB HEMETOLOGY METHOD 10/17/2024 12:18 PM EDT [facility] NRBC 0.0 <1.0 % LAB HEMETOLOGY METHOD 10/17/2024 12:18 PM EDT [facility] NRBC Absolute 0.00 <0.10 K/mcL [facility] 10/17/2024 12:18 PM EDT [facility] Blood Venous blood specimen / Unknown Venipuncture / Unknown 10/17/2024 9:41 AM EDT 10/17/2024 11:27 AM EDT us Naif iMxon MD LAB BLOOD ORDERABLES Final R esult [facility] [address] [place] [address], documented in this encounter Visit Diagnoses Diagnosis Schizophrenia, unspecified (CMS/HCC V24, CMS/HCC V28) Major depressive disorder, single episode, moderate (CMS/HCC V24, CMS/HCC V28) Major depressive disorder, single episode, moderate Other schizoaffective disorders (CMS/HCC V24, CMS/HCC V28) documented in this encounter Care Teams Machine Chain Maker Relationship Specialty Start Date End Date Naif Mixon MD [address] [place] [address] PCP - General Family Medicine 05/20/24 documented as of this encounter
--- OUTSIDE RECORDS SUMMARY | 2025-02-24 11:10 | XMS_ITS | Encounter Summary ---
Author Organization [facility] Address [address] [place] [phone] Care Team Providers Care Dog Sitter Name Role Phone Naif Mixon MD Primary Care Provider [phone] Encounter Details Date Type Department Care Team (Late st Contact Info) Description 11/04/2024 Lab Requisition [facility] - Main Lab [address] [facility] [place] [address] Naif Mixon MD [address] [place] [address] Schizophrenia, unspecified (CMS/HCC V24, CMS/HCC V28); Major [...] Associated Diagnosis Comments COMPLETE BLOOD COUNT Routine 11/07/2024 5:59 AM EDT Schizophrenia, unspecified (CMS/HCC V24, CMS/HCC V28) Major depressive disorder, single episode, moderate (CMS/HCC V24, CMS/HCC V28) BASIC METABOLIC PANEL Routine 11/07/2024 5:59 AM EDT Schizophrenia, unspecified (CMS/HCC V24, CMS/HCC V28) Major depressive disorder, single episode, moderate (CMS/HCC V24, CMS/HCC V28) documented in this encounter Results * (ABNORMAL) Complete blood count (11/07/2024 5:59 AM EDT) [facility] WBC 4.7(L) 4.8 - 10.8 K/mcL LAB HEMETOLOGY METHOD 11/07/2024 11:41 AM [facility] RBC 4.00 3.80 - 4.80 M/mcL LAB HEMETOLOGY METHOD 11/07/2024 11:41 AM [facility] Hemoglobin 12.9 11.5 - 16.0 g/dL LAB HEMETOLOGY METHOD 11/07/2024 11:41 AM [facility] LAB Hematocrit 39.3 35.0 - 47.0 % LAB HEMETOLOGY METHOD 11/07/2024 11:41 AM [facility] LAB MCV 98.0 79.0 - 98.0 FL LAB HEMETOLOGY METHOD 11/07/2024 11:41 AM [facility] MCH 32.2(H) 27.0 - 32.0 pcg LAB HEMETOLOGY METHOD 11/07/2024 11:41 AM [facility] MCHC 32.8 32.0 - 37.0 g/dL LAB HEMETOLOGY METHOD 11/07/2024 11:41 AM [facility] RDW 12.1 11.0 - 15.0 % LAB HEMETOLOGY METHOD 11/07/2024 11:41 AM [facility] LAB Platelets 226 130 - 400 K/mcL LAB HEMETOLOGY METHOD 11/07/2024 11:41 AM [facility] LAB MPV 8.6 7.0 - 11.0 FL LAB HEMETOLOGY METHOD 11/07/2024 11:41 AM [facility] NRBC 0.0 <1.0 % LAB HEMETOLOGY METHOD 11/07/2024 11:41 AM EDT [facility] NRBC Absolute 0.00 <0.10 K/mcL LAB HEMETOLOGY METHOD 11/07/2024 11:41 AM [facility] Blood Venous blood specimen / Unknown Venipuncture / Unknown 11/07/2024 5:59 AM EDT 11/07/2024 10:36 AM EDT Naif Mixon MD LAB BLOOD ORDERABLES Final R esult [facility] [address] [place] [address], * (ABNORMAL) Basic metabolic panel (11/07/2024 5:59 AM EDT) Sodium 141 133 - 145 mmol/L LAB CHEMISTRY METHOD 11/07/2024 12:59 PM [facility] Potassium 3.8 3.5 - 5.5 mmol/L LAB CHEMISTRY METHOD 11/07/2024 12:59 PM [facility] Chloride 108 96 - 110 mmol/L LAB CHEMISTRY METHOD 11/07/2024 12:59 PM [facility] CO2 24 21 - 32 mmol/L LAB CHEMISTRY METHOD 11/07/2024 12:59 PM [facility] Anion Gap 9 3 - 11 LAB CHEMISTRY METHOD 11/07/2024 12:59 PM [facility] Glucose 103(H) 70 - 100 mg/dL LAB CHEMISTRY METHOD 11/07/2024 12:59 PM [facility] BUN 19 5 - 25 mg/dL LAB CHEMISTRY METHOD 11/07/2024 12:59 PM [facility] Creatinine 0.98 0.50 - 1.10 mg/dL LAB CHEMISTRY METHOD 11/07/2024 12:59 PM [facility] LAB eGFR 66 >=60 mL/min/1. 73m2 LAB CHEMISTRY METHOD 11/07/2024 12:59 PM EDT [facility] Comment:Calculation based on the Chronic Kidney Disease Epidemiology Collaboration (CKD-EPI) equation refit without adjustment for race. BUN/Creatinine Ratio 19.4 LAB CHEMISTRY METHOD 11/07/2024 12:59 PM EDT [facility] Calcium 9.1 8.5 - 10.5 mg/dL LAB CHEMISTRY METHOD 11/07/2024 12:59 PM EDT [facility] Blood Venous blood specimen / Unknown Venipuncture / Unknown 11/07/2024 5:59 AM EDT 11/07/2024 10:36 AM EDT us Naif Mixon MD LAB BLOOD ORDERABLES Final R esult [facility] [address] [place] [address], documented in this encounter Visit Diagnoses Diagnosis Schizophrenia, unspecified (CMS/HCC V24, CMS/HCC V28) Major depressive disorder, single episode, moderate (CMS/HCC V24, CMS/HCC V28) Major depressive disorder, single episode, moderate documented in this encounter Care Teams Dog Sitter Relationship Specialty Start Date End Date Naif Mixon MD [address] [place] [address] PCP - General Family Medicine 05/20/24 documented as of this encounter
--- OUTSIDE RECORDS SUMMARY | 2025-02-24 11:10 | XMS_ITS | Encounter Summary ---
Author Organization [facility] Address [address] [place] [phone] Care Team Providers Care Rug Clipper Name Role Phone Naif Mixon MD Primary Care Provider [phone] Encounter Details Date Type Department Care Team (Late st Contact Info) Description 10/07/2024 Lab Requisition [facility] - Main Lab [address] [facility] [place] [address] Naif Mixon MD [address] [place] [address] Schizophrenia, unspecified (CMS/HCC V24, CMS/HCC V28); Major [...] Associated Diagnosis Comments COMPLETE BLOOD COUNT Routine 10/10/2024 10:20 AM EDT Schizophrenia, unspecified (CMS/HCC V24, CMS/HCC V28) Major depressive disorder, single episode, moderate (CMS/HCC V24, CMS/HCC V28) BASIC METABOLIC PANEL Routine 10/10/2024 10:20 AM EDT Schizophrenia, unspecified (CMS/HCC V24, CMS/HCC V28) Major depressive disorder, single episode, moderate (CMS/HCC V24, CMS/HCC V28) documented in this encounter Results * (ABNORMAL) Basic metabolic panel (10/10/2024 10:20 AM EDT) Sodium 141 133 - 145 mmol/L LAB CHEMISTRY METHOD 10/10/2024 3:23 PM [facility] Potassium 4.2 3.5 - 5.5 mmol/L LAB CHEMISTRY METHOD 10/10/2024 3:23 PM [facility] Chloride 107 96 - 110 mmol/L LAB CHEMISTRY METHOD 10/10/2024 3:23 PM [facility] CO2 25 21 - 32 mmol/L LAB CHEMISTRY METHOD 10/10/2024 3:23 PM [facility] Anion Gap 9 3 - 11 LAB CHEMISTRY METHOD 10/10/2024 3:23 PM [facility] Glucose 110(H) 70 - 100 mg/dL LAB CHEMISTRY METHOD 10/10/2024 3:23 PM [facility] BUN 29(H) 5 - 25 mg/dL LAB CHEMISTRY METHOD 10/10/2024 3:23 PM [facility] Creatinine 0.96 0.50 - 1.10 mg/dL LAB CHEMISTRY METHOD 10/10/2024 3:23 PM [facility] eGFR 68 >=60 mL/min/1. 73m2 LAB CHEMISTRY METHOD 10/10/2024 3:23 PM [facility] Comment:Calculation based on the Chronic Kidney Disease Epidemiology Collaboration (CKD-EPI) equation refit without adjustment for race. BUN/Creatinine Ratio 30.2 LAB CHEMISTRY METHOD 10/10/2024 3:23 PM [facility] Calcium 9.8 8.5 - 10.5 mg/dL LAB CHEMISTRY METHOD 10/10/2024 3:23 PM [facility] Blood Venous blood specimen / Unknown Venipuncture / Unknown 10/10/2024 10:20 AM EDT 10/10/2024 1:02 PM EDT Naif Mixon MD LAB BLOOD ORDERABLES Final R esult [facility] [address] [place] [address], [place] [phone] * (ABNORMAL) Complete blood count (10/10/2024 10:20 AM EDT) WBC 4.7(L) 4.8 - 10.8 K/mcL LAB HEMETOLOGY METHOD 10/10/2024 2:03 PM EDT [facility] RBC 3.80 3.80 - 4.80 M/mcL LAB HEMETOLOGY METHOD 10/10/2024 2:03 PM EDT [facility] Hemoglobin 12.2 11.5 - 16.0 g/dL LAB HEMETOLOGY METHOD 10/10/2024 2:03 PM EDT [facility] Hematocrit 37.0 35.0 - 47.0 % LAB HEMETOLOGY METHOD 10/10/2024 2:03 PM EDT [facility] MCV 96.6 79.0 - 98.0 FL LAB HEMETOLOGY METHOD 10/10/2024 2:[facility] MCH 31.9 27.0 - 32.0 pcg LAB HEMETOLOGY METHOD 10/10/2024 2:03 PM EDT [facility] MCHC 33.0 32.0 - 37.0 g/dL LAB HEMETOLOGY METHOD 10/10/2024 2:03 PM EDT [facility] RDW 12.8 11.0 - 15.0 % LAB HEMETOLOGY METHOD 10/10/2024 2:03 PM EDT [facility] Platelets 182 130 - 400 K/mcL LAB HEMETOLOGY METHOD 10/10/2024 2:03 PM EDT [facility] MPV 9.2 7.0 - 11.0 FL LAB HEMETOLOGY METHOD 10/10/2024 2:03 PM EDT [facility] NRBC 0.0 <1.0 % LAB HEMETOLOGY METHOD 10/10/2024 2:03 PM EDT [facility] NRBC Absolute 0.00 <0.10 K/mcL LAB HEMETOLOGY METHOD 10/10/2024 2:03 PM EDT [facility] Blood Venous blood specimen / Unknown Venipuncture / Unknown 10/10/2024 10:20 AM EDT 10/10/2024 1:06 PM EDT Naif Mixon MD LAB BLOOD ORDERABLES Final R esult [facility] [address] [place] [address], documented in this encounter Visit Diagnoses Diagnosis Schizophrenia, unspecified (CMS/HCC V24, CMS/HCC V28) Major depressive disorder, single episode, moderate (CMS/HCC V24, CMS/HCC V28) Major depressive disorder, single episode, moderate documented in this encounter Care Teams Rug Clipper Relationship Specialty Start Date End Date Naif Mixon MD [address] [place] [address] PCP - General Family Medicine 05/20/24 documented as of this encounter
--- OUTSIDE RECORDS SUMMARY | 2025-02-24 11:10 | XMS_ITS | Encounter Summary ---
Author Organization [facility] Address [address] [place] [phone] Care Team Providers Care Patient Ombudsperson Name Role Phone Naif Mixon MD Primary Care Provider [phone] Encounter Details Date Type Department Care Team (Latest Contact Info) Description 12/23/2024 Lab Requisition [facility] - Main Lab [address] [facility] [place] [address] Naif Mixon MD [address] [place] [address] Schizophrenia, unspecified (CMS/HCC V24, CMS/HCC V28); Other [...] Routine 12/26/2024 8:37 AM EDT Schizophrenia, unspecified ([facility] V24, [facility] V28) Other schizoaffective disorders ([facility] V24, [facility] V28) Major depressive disorder, single episode, moderate ([facility] V24, [facility] V28) documented in this encounter Results * (ABNORMAL) Complete blood count (12/26/2024 8:37 AM EDT) [facility] WBC 3.3(L) 4.8 - 10.8 K/mcL LAB HEMETOLOGY METHOD 12/26/2024 10:26 AM [facility] LAB RBC 3.70(L) 3.80 - 4.80 M/mcL LAB HEMETOLOGY METHOD 12/26/2024 10:26 AM [facility] LAB Hemoglobin 12.0 11.5 - 16.0 g/dL LAB HEMETOLOGY METHOD 12/26/2024 10:26 AM [facility] LAB Hematocrit 36.8 35.0 - 47.0 % LAB HEMETOLOGY METHOD 12/26/2024 10:26 AM [facility] LAB MCV 98.4(H) 79.0 - 98.0 FL LAB HEMETOLOGY METHOD 12/26/2024 10:26 AM [facility] LAB MCH 32.1(H) 27.0 - 32.0 pcg LAB HEMETOLOGY METHOD 12/26/2024 10:26 AM [facility] LAB MCHC 32.6 32.0 - 37.0 g/dL LAB HEMETOLOGY METHOD 12/26/2024 10:26 AM [facility] LAB RDW 12.2 11.0 - 15.0 % LAB HEMETOLOGY METHOD 12/26/2024 10:26 AM [facility] LAB Platelets 184 130 - 400 K/mcL LAB HEMETOLOGY METHOD 12/26/2024 10:26 AM [facility] LAB MPV 9.7 7.0 - 11.0 FL LAB HEMETOLOGY METHOD 12/26/2024 10:26 AM EDT [facility] LAB NRBC 0.0 <1.0 % LAB [facility] 12/26/2024 10:26 AM EDT [facility] LAB NRBC Absolute 0.00 <0.10 K/mcL LAB HEMETOLOGY METHOD 12/26/2024 10:26 AM EDT [facility] LAB Blood Venous blood specimen / Unknown Venipuncture / Unknown 12/26/2024 8:37 AM EDT 12/26/2024 10:04 AM EDT Naif Mixon MD LAB BLOOD ORDERABLES Final R esult [facility] [address] [place] [address], * (ABNORMAL) Basic metabolic panel (12/26/2024 8:37 AM EDT) Sodium 143 133 - 145 mmol/L LAB CHEMISTRY METHOD 12/26/2024 11:38 AM [facility] Potassium 4.0 3.5 - 5.5 mmol/L LAB CHEMISTRY METHOD 12/26/2024 11:38 AM [facility] LAB Chloride 115(H) 96 - 110 mmol/L LAB CHEMISTRY METHOD 12/26/2024 11:38 AM [facility] CO2 23 21 - 32 mmol/L LAB CHEMISTRY METHOD 12/26/2024 11:38 AM [facility] Anion Gap 5 3 - 11 LAB CHEMISTRY METHOD 12/26/2024 11:38 AM [facility] Glucose 99 70 - 100 mg/dL LAB CHEMISTRY METHOD 12/26/2024 11:38 AM [facility] BUN 13 5 - 25 mg/dL LAB CHEMISTRY METHOD 12/26/2024 11:38 AM EDT [facility] Creatinine 0.94 0.50 - 1.10 mg/dL LAB CHEMISTRY METHOD 12/26/2024 11:38 AM EDT [facility] LAB eGFR 70 >=60 mL/min/1. 73m2 LAB CHEMISTRY METHOD 12/26/2024 11:38 AM EDT [facility] Comment:Calculation based on the Chronic Kidney Disease Epidemiology Collaboration (CKD-EPI) equation refit without adjustment for race. BUN/Creatinine Ratio 13.8 LAB CHEMISTRY METHOD 12/26/2024 11:38 AM T [facility] Calcium 8.7 8.5 - 10.5 mg/dL LAB CHEMISTRY METHOD 12/26/2024 11:38 AM T [facility] Blood Venous blood specimen / Unknown Venipuncture / Unknown 12/26/2024 8:37 AM EDT 12/26/2024 10:04 AM EDT us Naif Mixon MD LAB BLOOD ORDERABLES Final R esult [facility] [address] [place] [address], documented in this encounter Visit Diagnoses Diagnosis Schizophrenia, unspecified ([facility] V24, [facility] V28) Other schizoaffective disorders ([facility] V24, [facility] V28) Major depressive disorder, single episode, moderate ([facility] V24, [facility] V28) Major depressive disorder, single episode, moderate documented in this encounter Care Teams Patient Ombudsperson Relationship Specialty Start Date End Date Naif Mixon MD [address] [place] [address] PCP - General Family Medicine 05/20/24 documented as of this encounter
--- OUTSIDE RECORDS SUMMARY | 2025-02-24 11:10 | XMS_ITS | Encounter Summary ---
Author Organization [facility] Address [address] [place] [address] Care Team Providers Care High Reach Operator Name Role Phone Naif Mixon MD Primary Care Provider [phone] Encounter Details Date Type Department Care Team (Latest Contact Info) Description 01/07/2025 Lab Requisition [facility] - Main Lab [address] [facility] [place] [address] Naif Mixon MD [address] [place] [address] Schizophrenia, unspecified (CMS/HCC V24, CMS/[facility] V28); Major depressive disorder, single episode, moderate [...] V28) documented in this encounter Care Teams High Reach Operator Relationship Specialty Start Date End Date Naif Mixon MD [address] [place] [address] PCP - General Family Medicine 05/20/24 documented as of this encounter
--- OUTSIDE RECORDS SUMMARY | 2025-02-24 11:10 | XMS_ITS | Encounter Summary ---
Author Organization [facility] Address [address] [place] [phone] Care Team Providers Care Building Code Inspector Name Role Phone Naif Mixon MD Primary Care Provider [phone] Encounter Details Date Type Department Care Team (Late st Contact Info) Description 11/18/2024 Lab Requisition [facility] - Main Lab [address] [facility] [place] [address] Naif Mixon MD [address] [place] [address] Schizophrenia, unspecified (CMS/HCC V24, CMS/HCC V28); Major [...] Associated Diagnosis Comments COMPLETE BLOOD COUNT Routine 11/21/2024 5:58 AM EDT Schizophrenia, unspecified (CMS/HCC V24, CMS/HCC V28) Major depressive disorder, single episode, moderate (CMS/HCC V24, CMS/HCC V28) BASIC METABOLIC PANEL Routine 11/21/2024 5:58 AM EDT Schizophrenia, unspecified (CMS/HCC V24, CMS/HCC V28) Major depressive disorder, single episode, moderate (CMS/HCC V24, CMS/HCC V28) documented in this encounter Results * (ABNORMAL) Complete blood count (11/21/2024 5:58 AM EDT) [facility] [place] [facility] WBC 5.3 4.8 - 10.8 K/mcL LAB HEMETOLOGY METHOD 11/21/2024 11:16 AM [facility] LAB RBC 3.90 3.80 - 4.80 M/mcL LAB HEMETOLOGY METHOD 11/21[facility]24 [facility] Hemoglobin 12.8 11.5 - 16.0 g/dL LAB HEMETOLOGY METHOD 11/21/2024 11:16 AM [facility] LAB Hematocrit 38.9 35.0 - 47.0 % LAB HEMETOLOGY METHOD 11/21/2024 11:16 AM [facility] LAB MCV 98.7(H) 79.0 - 98.0 FL LAB HEMETOLOGY METHOD 11/21/2024 11:16 AM [facility] LAB MCH 32.5(H) 27.0 - 32.0 pcg LAB HEMETOLOGY METHOD 11/21/2024 11:16 AM [facility] LAB MCHC 32.9 32.0 - 37.0 g/dL LAB HEMETOLOGY METHOD 11/21/2024 11:16 AM [facility] LAB RDW 11.9 11.0 - 15.0 % LAB HEMETOLOGY METHOD 11/21/2024 11:16 AM [facility] LAB Platelets 168 130 - 400 K/mcL LAB HEMETOLOGY METHOD 11/21/2024 11:16 AM [facility] LAB MPV 9.1 7.0 - 11.0 FL LAB HEMETOLOGY METHOD 11/21/2024 11:16 AM [facility] LAB NRBC 0.0 <1.0 % LAB HEMETOLOGY METHOD 11/21/2024 11:16 AM [facility] LAB NRBC Absolute 0.00 <0.10 K/mcL LAB HEMETOLOGY METHOD 11/21/2024 11:16 AM [facility] LAB Blood Venous blood specimen / Unknown Venipuncture / Unknown 11/21/2024 5:58 AM EDT 11/21/2024 10:48 AM EDT Naif Mixon MD LAB BLOOD ORDERABLES Final R esult [facility] [address] [place] [address], * (ABNORMAL) Basic metabolic panel (11/21/2024 5:58 AM EDT) Sodium 140 133 - 145 mmol/L LAB CHEMISTRY METHOD 11/21/2024 1:17 PM [facility] Potassium 3.6 3.5 - 5.5 mmol/L LAB CHEMISTRY METHOD 11/21/2024 1:17 PM [facility] Chloride 108 96 - 110 mmol/L LAB CHEMISTRY METHOD 11/21/2024 1:17 PM [facility] CO2 24 21 - 32 mmol/L LAB CHEMISTRY METHOD 11/21/2024 1:17 PM [facility] Anion Gap 8 3 - 11 LAB CHEMISTRY METHOD 11/21/2024 1:17 PM [facility] Glucose 115(H) 70 - 100 mg/dL LAB CHEMISTRY METHOD 11/21/2024 1:17 PM [facility] BUN 20 5 - 25 mg/dL LAB CHEMISTRY METHOD 11/21/2024 1:17 PM [facility] Creatinine 0.84 0.50 - 1.10 mg/dL LAB CHEMISTRY METHOD 11/21/2024 1:17 PM [facility] LAB eGFR 80 >=60 mL/min/1. 73m2 LAB CHEMISTRY METHOD 11/21/2024 1:17 PM EDT [facility] Comment:Calculation based on the Chronic Kidney Disease Epidemiology Collaboration (CKD-EPI) equation refit without adjustment for race. BUN/Creatinine Ratio 23.8 LAB CHEMISTRY METHOD 11/21/2024 1:17 PM EDT [facility] Calcium 8.9 8.5 - 10.5 mg/dL LAB CHEMISTRY METHOD 11/21/2024 1:17 PM EDT [facility] Blood Venous blood specimen / Unknown Venipuncture / Unknown 11/21/2024 5:58 AM EDT 11/21/2024 1:17 PM EDT us Naif Mixon MD LAB BLOOD ORDERABLES Final R esult [facility] [address] [place] [address], documented in this encounter Visit Diagnoses Diagnosis Schizophrenia, unspecified (CMS/HCC V24, CMS/HCC V28) Major depressive disorder, single episode, moderate (CMS/HCC V24, CMS/HCC V28) Major depressive disorder, single episode, moderate documented in this encounter Care Teams Building Code Inspector Relationship Specialty Start Date End Date Naif Mixon MD [address] [place] [address] PCP - General Family Medicine 05/20/24 documented as of this encounter
--- OUTSIDE RECORDS SUMMARY | 2025-02-24 11:10 | XMS_ITS | Encounter Summary ---
Author Organization [facility] Address [address] [place] [phone] Care Team Providers Care Tack Maker Name Role Phone Naif Mixon MD Primary Care Provider [phone] Encounter Details Date Type Department Care Team (Late st Contact Info) Description 09/30/2024 Lab Requisition [facility] - Main Lab [address] [facility] [email or web address] [address] Naif Mixon MD [address] [place] [address] Schizophrenia, unspecified (CMS/HCC V24, CMS/HCC V28); Major [...] Associated Diagnosis Comments COMPLETE BLOOD COUNT Routine 10/03/2024 7:17 AM EDT Schizophrenia, unspecified (CMS/HCC V24, CMS/HCC V28) Major depressive disorder, single episode, moderate (CMS/HCC V24, CMS/HCC V28) BASIC METABOLIC PANEL Routine 10/03/2024 7:17 AM EDT Schizophrenia, unspecified (CMS/HCC V24, CMS/HCC V28) Major depressive disorder, single episode, moderate (CMS/HCC V24, CMS/HCC V28) documented in this encounter Results * Basic metabolic panel (10/03/2024 7:17 AM EDT) Sodium 140 133 - 145 mmol/L LAB CHEMISTRY METHOD 10/03/2024 1:08 PM [facility] Potassium 3.6 3.5 - 5.5 mmol/L LAB CHEMISTRY METHOD 10/03/2024 1:08 PM [facility] Chloride 106 96 - 110 mmol/L LAB CHEMISTRY METHOD 10/03/2024 1:08 PM [facility] CO2 25 21 - 32 mmol/L LAB CHEMISTRY METHOD 10/03/2024 1:08 PM [facility] LAB Anion Gap 9 3 - 11 LAB CHEMISTRY METHOD 10/03/2024 1:08 PM [facility] Glucose 100 70 - 100 mg/dL LAB CHEMISTRY METHOD 10/03/2024 1:08 PM [facility] BUN 25 5 - 25 mg/dL LAB CHEMISTRY METHOD 10/03/2024 1:08 PM [facility] Creatinine 0.85 0.50 - 1.10 mg/dL LAB CHEMISTRY METHOD 10/03/2024 1:08 PM [facility] LAB eGFR 79 >=60 mL/min/1. 73m2 LAB CHEMISTRY METHOD 10/03/2024 1:08 PM [facility] Comment:Calculation based on the Chronic Kidney Disease Epidemiology Collaboration (CKD-EPI) equation refit without adjustment for race. BUN/Creatinine Ratio 29.4 LAB CHEMISTRY METHOD 10/03/2024 1:08 PM [facility] Calcium 9.5 8.5 - 10.5 mg/dL LAB CHEMISTRY METHOD 10/03/2024 1:08 PM [facility] Blood Venous blood specimen / Unknown Venipuncture / Unknown 10/03/2024 7:17 AM EDT 10/03/2024 10:09 AM EDT us Naif Mixon MD LAB BLOOD ORDERABLES Final R esult [facility] [address] [place] [address], [place] [phone] * (ABNORMAL) Complete blood count (10/03/2024 7:17 AM EDT) WBC 3.8(L) 4.8 - 10.8 K/mcL LAB HEMETOLOGY METHOD 10/03/2024 11:[address] [facility] RBC 3.90 3.80 - 4.80 M/mcL LAB HEMETOLOGY METHOD 10/03/2024 11:[address] [facility] Hemoglobin 12.5 11.5 - 16.0 g/dL LAB HEMETOLOGY METHOD 10/03/2024 11:[address] [facility] Hematocrit 37.5 35.0 - 47.0 % LAB HEMETOLOGY METHOD 10/03/2024 11:[address] [facility] MCV 96.6 79.0 - 98.0 FL LAB HEMETOLOGY METHOD 10/03/2024 11:[address] [facility] MCH 32.2(H) 27.0 - 32.0 pcg LAB HEMETOLOGY METHOD 10/03/2024 11:[address] [facility] MCHC 33.3 32.0 - 37.0 g/dL LAB HEMETOLOGY METHOD 10/03/2024 11:[address] [facility] RDW 12.9 11.0 - 15.0 % LAB HEMETOLOGY [facility] 196 130 - 400 K/mcL LAB HEMETOLOGY METHOD 10/03/2024 11:[address] [facility] MPV 9.1 7.0 - 11.0 FL LAB HEMETOLOGY METHOD 10/03/2024 11:[address] [facility] NRBC 0.0 <1.0 % LAB HEMETOLOGY METHOD 10/03/2024 11:[address] [facility] NRBC Absolute 0.00 <0.10 K/mcL LAB HEMETOLOGY METHOD 10/03/2024 11:[address] [facility] Blood Venous blood specimen / Unknown Venipuncture / Unknown 10/03/2024 7:17 AM EDT 10/03/2024 10:09 AM EDT Naif Mixon MD LAB BLOOD ORDERABLES Final R esult [facility] [address] [place] [address], documented in this encounter Visit Diagnoses Diagnosis Schizophrenia, unspecified (CMS/HCC V24, CMS/HCC V28) Major depressive disorder, single episode, moderate (CMS/HCC V24, CMS/HCC V28) Major depressive disorder, single episode, moderate documented in this encounter Care Teams Tack Maker Relationship Specialty Start Date End Date Naif Mixon MD [address] [place] [address] PCP - General Family Medicine 05/20/24 documented as of this encounter
--- OUTSIDE RECORDS SUMMARY | 2025-02-24 11:11 | XMS_ITS | Encounter Summary ---
Author Organization [facility] Address [address] [place] [phone] Phone Care Team Providers Care Breaker Machine Tender Name Role Phone Stacey Reis MD Primary Care Provider [phone] Stacey Reis MD Unavailable [phone] Khurram Ruelas MD Unavailable + Khurram Ruelas MD Unavailable + Stacey Reis MD Unavailable [phone] Waylon Crespo MD Unavailable + Waylon Crespo MD Unavailable + Stacey Reis MD Unavailable [phone] Beryl Shirley ADDICTION SOCIAL WORKER Unavailable [phone] Kaleigh Adams ADDICTION SOCIAL WORKER Unavailable [phone] [facility] Catrina Mcclendon ADDICTION SOCIAL WORKER Unavailable + [phone] Romain Paulson ADDICTION SOCIAL WORKER Unavailable [email or web address] Yomi Bass MD Unavailable [phone] Keny Govea ADDICTION SOCIAL WORKER Unavailable [phone] Unknown, Unknown Primary Care Provider Yomi Gray MD Unavailable [phone] Alba Harmon MD Unavailable [phone] Pcp, Unknown Primary Care Provider Unavailabl e Encounter Details Date Type Department Care Team (Late st Contact Info) Description 06/08/2017 Procedure Pass [facility] ERENDIRA 4 ENDO DEPT [address] [facility], 4th [place] [address] Social History Tobacco Use Types Packs/Day Years [...] EST [facility] [address] [place] [address] documented as of this encounter Visit Diagnoses Not on filedocumented in this encounter Additional Health Concerns Assessment Noted Time PHQ-2 Depression Total Score: 0 03/25/20 17 1:47 PM EDT documented as of this encounter Care Teams Breaker Machine Tender Relationship Specialty Start Date End Date Stacey Reis MD [email or web address] PCP - General 03/11/14 02/16/22 Khurram Ruelas MD [address] [place] [phone] [email or web address] PCP - Resident PCP 12/01/16 11/29/18 Waylon Crespo MD [address] [place] [address] [phone] [place] [address] [email or web address] PCP - Resident PCP 11/30/1811/29 Yomi Bass MD [address] [place] [address] 730 [place] [address] [email or web address] PCP - Resident PCP 11/30/21 02/16/22 Unknown, German, PCP - General 03/03/22 11/16/23 Pcp, Unknown PCP - General 11/17/23 Stacey Reis MD [address] [place] [address] [email or web address] Insurance Assigned Provider 09/20/16 Khurram Ruelas MD [address] [place] [phone] [email or web address] Attributed Provider 01/10/1712/11 Stacey Reis MD [address] [place] [phone] [email or web address] Insurance Assigned Provider 09/18/1810/09/18 Waylon Crespo MD [address] [place] [address] [phone] [place] [phone] [email or web address] Attributed Provider 01/08/19 07/12/22 Stacey Reis MD [address] [place] [phone] [email or web address] Insurance Assigned Provider 09/14/1909/13/22 Beryl Shirley ADDICTION SOCIAL WORKER [address] [place] [phone] [email or web address] Social Work 01/24/20 07/16/20 Kaleigh Adams LICSW [address] [place] [phone] [email or web address] Director Mobile 06/06/20 07/31/20 [place] Danelle Catrina [facility] [address] [place] [phone] [email or web address] Social Work 07/17/20 07/18/21 Romain Paulson, [facility] [address] [place] [phone] [email or web address] 07/19/21 Keny Govea, [facility] [address] [place] [address] [email or web address] 01/03/22 Yomi Bass MD 15 [facility] [address] [place] [address] [email or web address] Partners Attributed Provider 07/12/22 06/13/23 Alba Harmon MD [address] [facility], 10th Floor, [address] [place] [address] 10 [place] [address] [email or web address] Insurance Assigned Provider 09/13/22 documented as of this encounter Additional Source Comments The information contained in this document represents components of the legal health record. It is not the complete legal health record.[facility]
--- OUTSIDE RECORDS SUMMARY | 2025-02-24 11:11 | XMS_ITS | Encounter Summary ---
Author Organization [facility] Address [address] [place] [phone] Phone Care Team Providers Care Legal Secretary Receptionist Name Role Phone Stacey Reis MD Primary Care Provider + [phone] Khurram Ruelas MD Unavailable + Khurram Ruelas MD Unavailable + Stacey Reis MD Unavailable [phone] Waylon Crespo MD Unavailable [phone] Waylon Crespo MD Unavailable [phone] Stacey Reis MD Unavailable [phone] Beryl Shirley OTR TANKER TRUCK DRIVER Unavailable [phone] Kaleigh Adams OTR TANKER TRUCK DRIVER Unavailable [phone] [facility] Catrina Mcclendon OTR TANKER TRUCK DRIVER Unavailable + [phone] Romain Paulson OTR TANKER TRUCK DRIVER Unavailable MARLENE [email or web address] Yomi Bass MD Unavailable [phone] Keny Govea OTR TANKER TRUCK DRIVER Unavailable [phone] Unknown, Unknown Primary Care Provider Yomi Gray MD Unavailable [phone] Alba Harmon MD Unavailable [phone] Pcp, Unknown Primary Care Provider Unavailabl e Encounter Details Date Type Department Care Team (Late st Contact Info) Description 09/29/2018 Procedure Pass [facility] CRP ENDO DEPT [address] [place] [address] Social History Tobacco Use Types Packs/Day Years Used Date Smoking Tobacco: Every Day Smokeless Tobacco: Never Comments:2 per day Alcohol Use Standard Drinks/Week Comments Yes 0 (1 standard drink = 0.6 oz pur e alcohol) 2 per month Comments No Sex and Gender Information Value Date Recorded Sex Assigned at Not on file Legal Sex Female 8:11 PM EST Gender Identity Not on file Sexual Orientation Not on file documented as of this encounter Plan of Treatment Upcoming Encounters Date Type Department Care Team (Late Contact Info) Description 05/16/2025 6:00 AM EST [facility] [address] [place] [address] documented as of this encounter Visit Diagnoses Not on filedocumented in this encounter Additional Health Concerns Assessment Noted Time PHQ-2 Depression Total Score: 0 03/25/20 17 1:47 PM EDT documented as of this encounter Care Teams Legal Secretary Receptionist Relationship Specialty Start Date End Date Stacey Reis MD [email or web address] PCP - General 03/11/14 02/16/22 Khurram Ruelas MD [address] [place] [address] [email or web address] PCP - Resident PCP 12/01/16 11/29/18 Waylon Crespo MD [address] [place] [address] [phone] [place] [address] [email or web address] PCP - Resident PCP 11/30/1811/29 Yomi Bass MD [address] [place] [address] [address] [place] [address] [email or web address] PCP - Resident PCP 11/30/21 02/16/22 Unknown, German, PCP - General 03/03/22 11/16/23 Pcp, Unknown PCP - General 11/17/23 Khurram Ruelas MD [address] [place] [address] [email or web address] Partners Attributed Provider 01/10/1712/11 Stacey Resi MD [address] [place] [address] [email or web address] Insurance Assigned Provider 09/18/1810/09/18 Waylon Crespo MD [address] [place] [address] [address] [email or web address] Partners Attributed Provider 01/08/19 07/12/22 Stacey Reis MD [address] [place] [address] [email or web address] Insurance Assigned Provider 09/14/1909/13/22 Beryl Shirley LICSW [address] [place] [phone] [email or web address] iCMP Social Work 01/24/20 07/16/20 Kaleigh Adams LICSW [address] [place] [phone] [email or web address] Electrical Controls Designer 06/06/20 07/31/20 Catrina Lee LICSW [address] [place] [phone] [email or web address] [facility] Social Work 07/17/20 07/18/21 Romain Paulson, [facility] [address] [place] [phone] [email or web address]@[email or web address] Social Work 07/19/21 Keny Govea, [facility] [address] [place] [address] [email or web address] Social Work 01/03/22 Yomi Bass MD 15 [facility] [address] [place] [address] [email or web address] Partners Attributed Provider 07/12/22 06/13/23 Alba Harmon MD 50 [facility], 10th Floor, [address] [place] [address] 10 [place] [address] [email or web address] Insurance Assigned Provider 09/13/22 documented as of this encounter Additional Source Comments The information contained in this document represents components of the legal health record. It is not the complete legal health record.[facility]
--- OUTSIDE RECORDS SUMMARY | 2025-02-24 11:11 | XMS_ITS | Encounter Summary ---
Author Organization [facility] Address [address] [place] [address] Phone Care Team Providers Care Electric Motors Salesperson Name Role Phone Stacey Reis MD Primary Care Provider [phone] Stacey Reis MD Unavailable [phone] Khurram Ruelas MD Unavailable + Khurram Ruelas MD Unavailable + Stacey Reis MD Unavailable [phone] Waylon Crespo MD Unavailable + Waylon Crespo MD Unavailable + Stacey Ries MD Unavailable [phone] Beryl Shirley LOWERATOR OPERATOR Unavailable [phone] Kaleigh Adams LOWERATOR OPERATOR Unavailable [phone] [facility] Catrina Mcclendon LOWERATOR OPERATOR Unavailable + [phone] Romain Paulson LOWERATOR OPERATOR Unavailable MARLENE [email or web address] Yomi Bass MD Unavailable [phone] Keny Govea LOWERATOR OPERATOR Unavailable [phone] Unknown, Unknown Primary Care Provider Yomi Gray MD Unavailable [phone] Alba Harmon MD Unavailable [phone] Pcp, Unknown Primary Care Provider Unavailabl e Encounter Details Date Type Department Care Team (Late st Contact Info) Description 07/22/2017 Procedure Pass [facility] [address] [facility], 4th [place] [address] Social History Tobacco Use Types Packs/Day Years [...] EST [facility] [address] [place] [address] documented as of this encounter Visit Diagnoses Not on filedocumented in this encounter Additional Health Concerns Assessment Noted Time PHQ-2 Depression Total Score: 0 03/25/20 17 1:47 PM EDT documented as of this encounter Care Teams Electric [employer] Salesperson Relationship Specialty Start Date End Date Stacey Reis MD [email or web address] PCP - General 03/11/14 02/16/22 Khurram Ruelas MD [address] [place] [address] [email or web address] PCP - Resident PCP 12/01/16 11/29/18 Waylon Crespo MD [address] [place] [address] [address] [place] [address] [email or web address] PCP - Resident PCP 11/30/1811/29 Yomi Bass MD [address] [place] [address] 7[address] [place] [address] [email or web address] PCP - Resident PCP 11/30/21 02/16/22 Unknown, German, PCP - General 03/03/22 11/16/23 Pcp, Unknown PCP - General 11/17/23 Stacey Reis MD [address] [place] [address] [email or web address] Insurance Assigned Provider 09/20/16 Khurram Ruelas MD [address] [place] [address] [email or web address] Partners Attributed Provider 01/10/1712/11 Stacey Reis MD [address] [place] [address] [email or web address] Insurance Assigned Provider 09/18/1810/09/18 Waylon Crespo MD [address] [place] [address] [phone] [place] [address] [email or web address] Partners Attributed Provider 01/08/19 07/12/22 Stacey Reis MD [address] [place] [address] [email or web address] Insurance Assigned Provider 09/14/1909/13/22 Beryl Shirley LOWERATOR OPERATOR [address] [place] [phone] [email or web address] iCMP Social Work 01/24/20 07/16/20 Kaleigh Adams LICSW [address] [place] [phone] [email or web address] Welfare Adviser 06/06/20 07/31/20 [place] Danelle Catrina [facility] [address] [place] [phone] [email or web address] Social Work 07/17/20 07/18/21 Romain Paulson, [facility] [address] [place] [phone] ASAD@[email or web address] Social Work 07/19/21 Keny Govea, [facility] [address] [place] [address] [email or web address] Social Work 01/03/22 Yomi Bass MD 15 [facility] 730 [place] [address] [email or web address] Partners Attributed Provider 07/12/22 06/13/23 Alba Harmon MD 50 [facility], 10th Floor, [address] [place] [address] 10 [place] [address] [email or web address] Insurance Assigned Provider 09/13/22 documented as of this encounter Additional Source Comments The information contained in this document represents components of the legal health record. It is not the complete legal health record.[facility]
== END 2025-02-24 11:07 | disposition home or self-care (01) ==
LOC: HO.HMCFMS 10:32
PROVIDERS: PCP Student in an Organized Health Care Education/Training Program; Visit Provider Student in an Organized Health Care Education/Training Program
DX: J44.9 Chronic obstructive pulmonary disease, unspecified (principal); G25.82 Stiff-man syndrome; I10 Essential (primary) hypertension; I95.9 Hypotension, unspecified; R25.1 Tremor, unspecified; R25.2 Cramp and spasm; R26.9 Unspecified abnormalities of gait and mobility; Z00.00 Encounter for general adult medical examination without abnormal findings

== ENCOUNTER → 2025-02-24 10:31 | Outpatient (BNVA) | payer MEDICAID, SELFPAY | PROVIDERS: PCP Student in an Organized Health Care Education/Training Program; Visit Provider Student in an Organized Health Care Education/Training Program | DX: Z76.89 Persons encountering health services in other specified circumstances (principal); J44.9 Chronic obstructive pulmonary disease, unspecified; G25.82 Stiff-man syndrome; I10 Essential (primary) hypertension; I95.9 Hypotension, unspecified; R26.9 Unspecified abnormalities of gait and mobility; Z72.0 Tobacco use; Z75.0 Medical services not available in home; Z13.31 Encounter for screening for depression; Z13.39 Encounter for screening examination for other mental health and behavioral disorders | CPT/HCPCS: 99202 ==

== ENCOUNTER 2025-03-10 11:00 | Outpatient (AMB) | payer MEDICARE, MEDICAID, SELFPAY ==
--- OUTSIDE RECORDS SUMMARY | 2008-08-29 | XMS_ITS | Encounter Summary ---
Author Organization [facility] Address [address] [facility] [address] [place] [address] Phone Care Team Providers Care Fat Pressroom Worker Name Role Phone Unavailable Primary Care Provider Unavailabl e Encounter Details Date Type Department Care Team ([facility] st Contact Info) Description 08/29/2008 Hospital Encounter [facility] 55 [place] [address] Stacey Reis MD 55 [facility] [address] [place] [phone] [email or web address] Social History Tobacco Use Types Packs/Day Years [...] AM EST [facility] [address] [place] [address] documented as of this encounter Procedures Procedure Name Priority Date/Time Associated Diagnosis Comments BI US BREAST OUTSIDE (NO INTERPRETATION) Routine 08/29/2008 12:00 AM EDT documented in this encounter Results * US Breast Outside (No Interpretation) (08/29/2008 12:00 AM EDT) Narrative [facility] [place] - 09/05/2020 1:42 PM EDT This study is for PACS storage only and not for interpretation. us Stacey Reis MD IMG OUTSIDE IMAGING W/OUT IN TERPRETATION Final Result [facility] documented in this encounter Visit Diagnoses Not on filedocumented in this encounter Additional Source Comments The information contained in this document represents components of the legal health record. It is not the complete legal health record.[facility]
--- OUTSIDE RECORDS SUMMARY | 2008-08-29 | XMS_ITS | Encounter Summary ---
Author Organization [facility] Address [address] [facility] [address] [place] [address] Phone Care Team Providers Care Manager Business Information Name Role Phone Unavailable Primary Care Provider Unavailabl e Encounter Details Date Type Department Care Team ([facility] st Contact Info) Description 08/29/2008 Hospital Encounter [facility] 55 [place] [address] Stacey Reis MD 55 [facility] [address] [place] [address] [email or web address] Social History Tobacco Use Types Packs/Day Years [...] AM EST [facility] [address] [place] [address] documented as of this encounter Procedures Procedure Name Priority Date/Time Associated Diagnosis Comments BI MAMMOGRAM OUTSIDE (NO INTERPRETATION) Routine 08/29/2008 12:00 AM EDT documented in this encounter Results * Mammogram Outside (No Interpretation) (08/29/2008 12:00 AM EDT) Narrative [facility] IMG INTERFACES - 09/05/2020 1:42 PM EDT This study is for PACS storage only and not for interpretation. us Stacey Reis MD IMG OUTSIDE IMAGING W/OUT IN TERPRETATION Final Result [facility] IMG INTERFACES documented in this encounter Visit Diagnoses Not on filedocumented in this encounter Additional Source Comments The information contained in this document represents components of the legal health record. It is not the complete legal health record.[facility]
--- OUTSIDE RECORDS SUMMARY | 2008-09-11 | XMS_ITS | Encounter Summary ---
Author Organization [facility] Address [address] [facility] [address] [place] [address] Phone Care Team Providers Care Vice President Education Name Role Phone Unavailable Primary Care Provider Unavailabl e Encounter Details Date Type Department Care Team ([facility] st Contact Info) Description 09/11/2008 Hospital Encounter [facility] 55 [place] [address] Stacey Reis MD 55 [facility] [address] [place] [phone] [email or web address] Social History Tobacco Use Types Packs/Day Years [...] AM EST [facility] [address] [place] [address] documented as of this encounter Procedures Procedure Name Priority Date/Time Associated Diagnosis Comments BI MAMMOGRAM OUTSIDE (NO INTERPRETATION) Routine 09/11/2008 12:00 AM EDT documented in this encounter Results * Mammogram Outside (No Interpretation) (09/11/2008 12:00 AM EDT) Narrative [facility] IMG INTERFACES - 09/05/2020 1:43 PM EDT This study is for PACS storage only and not for interpretation. us Stacey Reis MD IMG OUTSIDE IMAGING W/OUT IN TERPRETATION Final Result [facility] IMG INTERFACES documented in this encounter Visit Diagnoses Not on filedocumented in this encounter Additional Source Comments The information contained in this document represents components of the legal health record. It is not the complete legal health record.[facility]
--- NOTE | 2025-03-10 11:06 | A.OFFPC_ITS ---
Vital Signs 03/10/25 11:07 Height 5 ft 4 in Weight 181 lb 2 oz BMI 31.1 BP 141/94 H Blood Pressure Location Rt brachial Position Sitting Respiration 16 Pulse 121 H Pulse Source Pulse Oximeter Temp 98.1 F Temp Source Oral Pulse Oximetry (%) 99 Oxygen Delivery Method Room Air Intake Visit Reasons: 2 week follow up Intake Note: establish care Commercial Diver Required: No Accompanied by: Self / Same As Patient Allergies albuterol Adverse Reaction (Verified 03/10/25 11:12) Palpitations Tobacco use date assessed: 02/24/25 Dental Screening Dental Screen Date: 02/24/25 Did you have a dental visit in the last 12 months?: Yes Did you have a dental problem in the last 6 months where you did not have access to dental care?: No Was dental information given to patient?: Patient has dentist HPI HPI Comments History of Present Illness Details History of Present Illness The patient is a 59-year-old female presenting with medication management and follow-up on blood work. 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 - She has been referred to rheumatology for further evaluation and management, but the local department does not treat this condition. - She received a letter to contact a [facility] umatologist in [place] for further care. Post-Traumatic Stress Disorder (PTSD): - The patient has a history of PTSD, whi ch is related to the loss of her son. - She experiences significant emotional distress and has attempted self-harm in the past. - She is currently not engaged in therap y but has been encouraged to seek behavioral health support. Anxiety: - The patient reports feeling scared, co nfused, and anxious, particularly when not taking diazepam. - She has been prescribed diazepam 5 mg twice daily, but there is concern about continuing this without proper psychiatric evaluation. Depression: - The patient has a history of depressio n, exacerbated by the anniversary of her son's . - She is prescribed olanzapine and trazo done for management but is not currently seeing a therapist. Skin Irritation: - The patient reports skin irritation un yana both breasts, which is not itchy but persistent. - A topical cream has been prescribed to be applied twice daily. Review of Systems - Psychiatric: Reports anxiety, depressi on, and PTSD symptoms. Denies current therapy involvement. - Dermatological: Reports skin irritatio n under both breasts, non-itchy. 10-point ROS reviewed and negative excep t as noted in HPI Past Medical History - Stiff Person Syndrome - Post-Traumatic Stress Disorder (PTSD) - Anxiety - Depression Health Maintenance - Blood work including thyroid and A1c p ending completion. Physical Exam General: Well-appearing, in no acute distress. Vital signs: Within normal limits. HEENT: Normocephalic, atraumatic. PERRLA, EOMI. Conjunctiva clear, sclera anicteric. Oropharynx clear, mucous membranes moist. TMs intact bilaterally. Neck: Supple, no lymphadenopathy, no thyromegaly, no JVD or carotid bruits. Cardiovascular: RRR, normal S1/S2, no murmurs, rubs, or gallops. Peripheral pulses 2+ and symmetric. No edema. Respiratory: Lungs clear to auscultation bilaterally, no wheezes, rales, or rhonchi. Normal effort. Abdomen: Soft, non-tender, non-distended. Normoactive bowel sounds. No hep atosplenomegaly, no masses. MSK: Full range of motion, no joint swelling or deformity. Normal gait. Skin: Warm, dry, intact. No rashes, lesions, or pallor. Cream prescribed for under the breasts, to be applied twice a day. Neuro: Alert and oriented x3. Cranial nerves II-XII intact. Strength 5/5 throughout. Sensation intact. Reflexes 2+ symmetric. Normal coordination and gait. Psych: Appropriate mood and affect. Normal judgment and insight. History of PTSD and psychiatric issues, including a suicide attempt. Reports feeling scared, confused, and anxious. Refuses to see a behavioral therapist. Plan 1. Stiff Person Syndrome - Referral to rheumatology for further e valuation and management. - Patient advised to contact rheumatolog ist in [place] as per letter instructions. 2. Post-Traumatic Stress Disorder (Ptsd) - Encouraged to engage with behavioral h [facility] services for support. - Discussed the importance of therapy in managing PTSD symptoms. 3. Anxiety - Discussed concerns about diazepam use without psychiatric evaluation. - Suggested follow-up with a psychiatris t for medication management. 4. Depression - Recommended continuation of olanzapine and trazodone with psychiatric oversight. - Encouraged to seek therapy to address depressive symptoms. 5. Skin Irritation - Prescribed topical cream to be applied twice daily under the breasts. Discussion Notes During the visit, we discussed the importance of completing the pending blood work, including thyroid and A1c tests, to better manage the patient's health conditions. We also addressed the need for psychiatric evaluation to continue certain medications safely. The patient was advised to contact the electronics mechanic apprentice in [place] for her Stiff Person Syndrome and was encouraged to engage with behavioral health services for PTSD and depression management. A topical cream was prescribed for skin irritation under the breasts. Patient was informed and verbally consented to the use of an ambient scribe for clinic note documentation during this visit. Patient Instructions - Complete the pending blood work, inclu ding thyroid and A1c tests. - Contact the electronics mechanic apprentice in [place] a s instructed in the letter. - Apply the prescribed topical cream und er the breasts twice daily. - Consider engaging with behavioral heal th services for support with PTSD and depression. - Follow up with a psychiatrist for medi cation management, Of note -had an extensive conversation with her son who she lives with discussing her diagnoses and her current living situation her son is and has 4 children and they take care of her at this current moment she is looking for home health services she is not amendable to behavioral health therapy which is warranted at this time due to the psychiatric medication that she is on including diazepam for her anxiety and tremors due to her PTSD and stiff man syndrome she has a pending rheumatology referral but at this current time our [facility] electronics mechanic apprentice does not treat this so she is looking for another electronics mechanic apprentice she denies any suicidal ideations or attempts at this current moment both son and patient are aware that behavioral Health will be reaching out to them to schedule an appointment for further evaluation and management they both understand and agree with plan Total time spent caring for the patient today was 45 minutes. This includes time spent before the visit reviewing the chart, time spent documenting, , reviewing medications, performing a medically necessary evaluation, counseling on diagnoses, care coordination, ordering appropriate tests, ordering appropriate medications, review of tests performed by other providers. [facility] Medical History (Updated 03/11/25 @ 11:04 by Mike Boyle MD) Tremors of nervous system Dermatitis No home medical services Depression Bowel perforation Lupus Hypertension Stiff-man syndrome Pneumonia COPD (chronic obstructive pulmonary disease) Delusional disorder Surgical History History of mandibular surgery History of cholecystectomy Family History Paternal Grandmother TB (pulmonary tuberculosis) Father FH: HTN (hypertension) Social History Household Members: Family Household Members Other:: son, gf, grandchildren Housing: House Do you presently have visiting nurse or other home services: No (By history) Alcohol intake: current Alcohol intake frequency: does not drink Patient Tobacco Use Status: Current everyday Tobacco user Tobacco use type: Cigarette Cigarette Packs Per Day: 5 e-Cigarette/Vaping Use: Currently Using Second Hand Smoke Exposure: No Substance Use Type: Marijuana, Other and Caffiene service: No Current occupational status: retired and disabled Sexual orientation: Straight/Heterosexual Cognitive needs: No Hearing needs: No Vision needs: Yes (rx glasses) Questionnaire PHQ-9 Over the last 2 weeks, how often have you been bothered by any of the following problems? 1. Little interest or pleasure in doing things: several days 2. Feeling down, depressed, or hopeless: several days 3. Trouble falling or staying asleep, or sleeping too much: several days 4. Feeling tired or having little energy: several days 5. Poor appetite or overeating: not at all 6. Feeling bad about yourself - or that you are a failure or have let yourself or your family down: not at all 7. Trouble concentrating on things, such as reading the newspaper or watching television: several days 8. Moving or speaking so slowly that other people could have noticed. Or the opposite - being so fidgety or restless that you have been moving around a lot more than usual: several days 9. Thoughts that you would be better off or of hurting yourself in some wa y: not at all Total score: 6 Depression Screening Interpretation: Positive Depression Screening Done: Yes Source: Developed by Drs. Jason Solano, Tomasa Mott, Yordy Palencia and colleagues, with an educational kala from [employer]. Thrive Questionnaire Date Thrive assessed: 02/24/25 I am a: Patient What is your living situation today?: I have a steady place to live Within the past 12 months, did the food you bought not last and you didn't have the money to get more?: Often true Within the past 12 months, did you worry whether your food would run out before you got money to buy more?: Often true Do you have trouble paying for medicines?: No Do you have trouble getting transportation to medical appointments?: Yes Do you have trouble paying your heating and electricity bill?: No Do you have trouble taking care of your child, family member or friend?: Yes Are you currently unemployed and looking for a job?: No Are you interested in more education?: No Please select the resources that you would like help with: Daily support THRIVE Score: 3 AUDIT C Alcohol Use Questionnaire (AUDIT-C) 1. How often do you have a drink containing alcohol?: Never 3. How often do you have six or more drinks on one occasion?: Never Total Score: 0 PATRICIA-7 AMB Questionnaire PATRICIA-7 Date PATRICIA - 7 assessed: 02/24/25 Feeling nervous, anxious, or on edge: 1 = Several days Not being able to stop or control worryin = Not at all Worrying too much about different things: 2 = More than half the days Trouble relaxin = Several days Being so restless that it is hard to sit still: 2 = More than half the days Becoming easily annoyed or irritable: 1 = Several days Feeling afraid as if something awful might happen: 0 = Not at all Total PATRICIA-7 score (0-4 normal; 5-9 mild; 10-14 moderate; 15-21 severe): 7 Source: Developed by Drs. Jason Solano, Tomasa Mott, Yordy Palencia and colleagues, with an educational kala from [employer]. Physical exam (Primary Care) Vital Signs: Last Vital Signs Temp 98.1 F 03/10/25 11:07 Pulse 121 H 03/10/25 11:07 Resp 16 03/10/25 11:07 BP 141/94 H 03/10/25 11:07 Pulse Ox 99 03/10/25 11:07 Oxygen Delivery Method Room Air 03/10/25 11:07 BMI result Body Mass Index 31.1 Tobacco/Smoking Status: Tobacco use Status Tobacco use date assessed 02/24/25 03/10/25 11:10 Patient Tobacco Use Status Current everyday Tobacco 03/10/25 11:10 Tobacco use type Cigarette 03/10/25 11:10 e-Cigarette/Vaping Use Currently Using 03/10/25 11:10 PHQ-9: PHQ-9 Score PHQ-9: Total score 6 03/10/25 16:17 Depression Screening Interpretation: Positive Thrive Assessment: Date of Thrive Assessment Date Thrive assessed 02/24/25 03/10/25 11:10 Coding Level of Care Code Est Pt Level 4 (85463) Diagnoses Stiff-man syndrome G25.82 Tremors of nervous system R25.1 Dermatitis L30.9 Skin irritation R23.8 Delusional disorder F22 Chronic posttraumatic stress syndrome F43.12 Adjustment disorder with anxiety F43.22 Depression F32.A Assessment & Plan Assessment & Plan (1) Stiff-man syndrome: Code(s): G25.82 - Stiff-man syndrome Category: Medical (2) Tremors of nervous system: Code(s): R25.1 - Tremor, unspecified Category: Medical (3) Dermatitis: Code(s): L30.9 - Dermatitis, unspecified Category: Medical (4) Skin irritation: Code(s): R23.8 - Other skin changes (5) Delusional disorder: Code(s): F22 - Delusional disorders Category: Medical (6) Chronic posttraumatic stress syndrome: Code(s): F43.12 - Post-traumatic stress disorder, chronic (7) Adjustment disorder with anxiety: Code(s): F43.22 - Adjustment disorder with anxiety (8) Depression: Code(s): F32.A - Depression, unspecified Plan Orders: Referrals Nurse Navigator Referral F22 - Delusional disorders, G25.82 - Stiff-man syndrome Medications: New gabapentin 600 mg PO BID 180 tabs 0RF triamcinolone acetonide 0.1% 1 appl topical BID 30 grams 0RF L30.9 - Dermatitis, unspecified Refilled olanzapine 20 mg (2 x 10 mg) PO BEDTIME 60 tabs 0RF trazodone 50 mg PO BEDTIME PRN 30 tabs 0RF Insomnia diazepam 5 mg PO DAILY PRN 30 tabs 0RF anxiety baclofen 10 mg PO TID 90 tabs 0RF melatonin 6 mg (2 x 3 mg) PO BEDTIME PRN 60 tabs 0RF Insomnia midodrine 10 mg PO TIDWM 90 tabs 0RF Discontinued diazepam Discontinued Reason: Patient no longer taking 10 mg PO TID 90 tabs 0RF
[2025-03-10 11:07] VITALS: BP 141/94; PULSE 121; RESP 16; TEMP 36.7; O2SAT 99; BMI 31.1
--- OUTSIDE RECORDS SUMMARY | 2025-03-10 12:17 | XMS_ITS | Encounter Summary ---
Author Organization [facility] Address [address] [place] [phone] Care Team Providers Care Salesperson Florist Supplies Name Role Phone Naif Mixon MD Primary Care Provider [phone] Encounter Details Date Type Department Care Team (Late st Contact Info) Description 04/09/2024 Lab Requisition [facility] - Main Lab 299 [facility] [place] [address] Naif Mxion MD [address] [place] [address] Hypokalemia; Acute kidney failure, unspecified (CMS/HCC V24) [...] Travel phlebotomy fee (04/11/2024 7:16 AM EST) [facility] SKILLED NURSING TRAVEL PHLEBOTOMY FEE Completed 04/11/2024 12:01 PM [facility] Blood Venous blood specimen / Unknown Venipuncture / Unknown 04/11/2024 7:16 AM EST 04/11/2024 12:00 PM EST us Naif Mixon MD LAB BLOOD ORDERABLES Final R esult [facility] [address] [place] [address], * (ABNORMAL) Basic metabolic panel (04/11/2024 7:16 AM EST) [facility] Sodium 144 133 - 145 mmol/L LAB CHEMISTRY METHOD 04/11/2024 1:21 PM [facility] Potassium 3.8 3.5 - 5.5 mmol/L LAB CHEMISTRY METHOD 04/11/2024 1:21 PM [facility] Chloride 109 96 - 110 mmol/L LAB CHEMISTRY METHOD 04/11/2024 1:21 PM [facility] CO2 27 21 - 32 mmol/L LAB CHEMISTRY METHOD 04/11/2024 1:21 PM [facility] Anion Gap 8 3 - 11 LAB CHEMISTRY METHOD 04/11/2024 1:21 PM [facility] Glucose 65(L) 70 - 100 mg/dL LAB CHEMISTRY METHOD 04/11/2024 1:21 PM [facility] BUN 11 5 - 25 mg/dL LAB CHEMISTRY METHOD 04/11/2024 1:21 PM [facility] Creatinine 0.56 0.50 - 1.10 mg/dL LAB CHEMISTRY METHOD 04/11/2024 1:21 PM [facility] eGFR 105 >=60 mL/min/1. 73m2 LAB CHEMISTRY METHOD 04/11/2024 1:21 PM [facility] Comment:Calculation based on the Chronic Kidney Disease Epidemiology Collaboration (CKD-EPI) equation refit without adjustment for race. BUN/Creatinine Ratio 19.6 LAB CHEMISTRY METHOD 04/11/2024 1:21 PM [facility] Calcium 8.8 8.5 - 10.5 mg/dL LAB CHEMISTRY METHOD 04/11/2024 1:21 PM [facility] Blood Venous blood specimen / Unknown Venipuncture / Unknown 04/11/2024 7:16 AM EST 04/11/2024 12:00 PM EST us Naif Mixon MD LAB BLOOD ORDERABLES Final R esult [facility] [address] [place] [address], * (ABNORMAL) Complete blood count (04/11/2024 7:16 AM EST) WBC 5.0 4.8 - 10.8 K/mcL LAB HEMETOLOGY METHOD 04/11/2024 12:47 PM [facility] RBC 3.00(L) 3.80 - 4.80 M/mcL LAB HEMETOLOGY METHOD 04/11/2024 12:47 PM [facility] Hemoglobin 8.6(L) 11.5 - 16.0 g/dL LAB HEMETOLOGY METHOD 04/11/2024 12:47 PM [facility] Hematocrit 28.6(L) 35.0 - 47.0 % LAB HEMETOLOGY METHOD 04/11/2024 12:47 PM [facility] MCV 94.1 79.0 - 98.0 FL LAB HEMETOLOGY METHOD 04/11/2024 12:47 PM [facility] MCH 28.3 27.0 - 32.0 pcg LAB HEMETOLOGY METHOD 04/11/2024 12:47 PM [facility] MCHC 30.1(L) 32.0 - 37.0 g/dL LAB HEMETOLOGY METHOD 04/11/2024 12:47 PM [facility] RDW 15.4(H) 11.0 - 15.0 % LAB HEMETOLOGY METHOD 04/11/2024 12:47 PM [facility] Platelets 388 130 - 400 K/mcL LAB HEMETOLOGY METHOD 04/11/2024 12:47 PM [facility] MPV 9.1 7.0 - 11.0 FL LAB HEMETOLOGY METHOD 04/11/2024 12:47 PM [facility] NRBC 0.0 <1.0 % LAB HEMETOLOGY METHOD 04/11/2024 12:47 PM [facility] NRBC Absolute 0.00 <0.10 K/mcL LAB HEMETOLOGY METHOD 04/11/2024 12:47 PM [facility] Blood Venous blood specimen / Unknown Venipuncture / Unknown 04/11/2024 7:16 AM EST 04/11/2024 12:00 PM EST us Naif Mixon MD LAB BLOOD ORDERABLES Final R esult [facility] [address] [place] [address], documented in this encounter Visit Diagnoses Diagnosis Hypokalemia Hypopotassemia Acute kidney failure, unspecified (CMS/HCC V24) Acute kidney failure, unspecified documented in this encounter Care Teams Salesperson Florist Supplies Relationship Specialty Start Date End Date Naif Mixon MD [address] [place] [address] PCP - General Family Medicine 05/20/24 documented as of this encounter
--- OUTSIDE RECORDS SUMMARY | 2025-03-10 12:17 | XMS_ITS | Encounter Summary ---
Author Organization [facility] Address [address] [place] [address] Phone Care Team Providers Care Pyrotechnic Mixer Name Role Phone Stacey Reis MD Primary Care Provider [phone] Stacey Reis MD Unavailable [phone] Khurram Ruelas MD Unavailable + Khurram Ruelas MD Unavailable + Stacey Reis MD Unavailable [phone] Waylon Crespo MD Unavailable + Waylon Crespo MD Unavailable + Stacey Reis MD Unavailable [phone] Beryl Shirley LINE PALLETIZER Unavailable [phone] Kaleigh Adams LINE PALLETIZER Unavailable [phone] [facility] Catrina Mcclendon LINE PALLETIZER Unavailable + [phone] Romain Paulson LINE PALLETIZER Unavailable MARLENE [email or web address] [place] Yomi Bass MD Unavailable [phone] Keny Govea LINE PALLETIZER Unavailable [phone] Unknown, Unknown Primary Care Provider Yomi Gray MD Unavailable [phone] Alba Harmon MD Unavailable [phone] Pcp, Unknown Primary Care Provider Unavailabl e Encounter Details Date Type Department Care Team (Late st Contact Info) Description 02/17/[address] - [place] [place] [address] Social History Tobacco Use Types Packs/Day Years [...] EST [facility] [address] 1st [place] [address] documented as of this encounter Visit Diagnoses Not on filedocumented in this encounter Additional Health Concerns Assessment Noted Time PHQ-2 Depression Total Score: 0 03/25/20 17 1:47 PM EDT documented as of this encounter Care Teams Pyrotechnic Mixer Relationship Specialty Start Date End Date Stacey Reis MD [email or web address] PCP - General 03/11/14 02/16/22 Khurram Ruelas MD [address] [place] [address] [email or web address] PCP - Resident PCP 12/01/16 11/29/18 Waylon Crespo MD 55 [facility] [address] [place] [address] [email or web address] PCP - Resident PCP 11/30/1811/29 Yomi Bass MD 15 [facility] 730 [place] [address] [email or web address] PCP - Resident PCP 11/30/21 02/16/22 Unknown, Unknown, PCP - General 03/03/22 11/16/23 Pcp, Unknown PCP - General 11/17/23 Stacey Reis MD [address] [place] [address] [place] [address] [email or web address] Insurance Assigned Provider 09/20/16 Khurram Ruelas MD [address] [place] [address] [email or web address] Partners Attributed Provider 01/10/1712/11 Stacey Reis MD [address] [place] [address] [email or web address] Insurance Assigned Provider 09/18/1810/09/18 Waylon Crespo MD [address] [place] [address] [address] [place] [address] [email or web address] Partners Attributed Provider 01/08/19 07/12/22 Stacey Reis MD [address] [place] [address] [email or web address] Insurance Assigned Provider 09/14/1909/13/22 Beryl Shirley [address] [address] [email or web address] i[employer] Social Work 01/24/20 07/16/20 Kaleigh Adams LINE PALLETIZER [address] [place] [phone] [email or web address] Senior Fire Protection Engineer 06/06/20 07/31/20 Brandon Catrina Mcclendon [facility] [address] [place] [phone] [email or web address] Social Work 07/17/20 07/18/21 Romain Paulson, [address] [address] [email or web address] Social Work 07/19/21 Keny Govea, [facility] [address] [place] [address] [email or web address] Social Work 01/03/22 Yomi Bass MD [address] [place] [address] 730 [place] [address] [email or web address] Partners Attributed Provider 07/12/22 06/13/23 Alba Harmon MD [address] [place] [address], 10th Floor, [address] [place] [address] 10 [place] [address] [email or web address] Insurance Assigned Provider 09/13/22 documented as of this encounter Additional Source Comments The information contained in this document represents components of the legal health record. It is not the complete legal health record.[facility]
--- OUTSIDE RECORDS SUMMARY | 2025-03-10 12:18 | XMS_ITS | Encounter Summary ---
Author Organization [facility] Address [address] [place] [phone] Care Team Providers Care Tire Service Technician Name Role Phone Naif Mixon MD Primary Care Provider [phone] Encounter Details Date Type Department Care Team (Latest Contact Info) Description 08/28/2024 Lab Requisition [facility] - Main Lab [address] [facility] [place] [address] Naif Mixon MD [address] [place] [address] Schizophrenia, unspecified (CMS/HCC V24, CMS/HCC V28); Major [...] mmol/L LAB CHEMISTRY METHOD 08/29/2024 2:34 PM [facility] Potassium 4.4 3.5 - 5.5 mmol/L LAB CHEMISTRY METHOD 08/29/2024 2:34 PM [facility] Chloride 110 96 - 110 mmol/L LAB CHEMISTRY METHOD 08/29/2024 2:34 PM [facility] CO2 27 21 - 32 mmol/L LAB CHEMISTRY METHOD 08/29/2024 2:34 PM [facility] Anion Gap 7 3 - 11 LAB CHEMISTRY METHOD 08/29/2024 2:34 PM [facility] Glucose 107(H) 70 - 100 mg/dL LAB CHEMISTRY METHOD 08/29/2024 2:34 PM [facility] BUN 19 5 - 25 mg/dL LAB CHEMISTRY METHOD 08/29/2024 2:34 PM [facility] Creatinine 0.81 0.50 - 1.10 mg/dL LAB CHEMISTRY METHOD 08/29/2024 2:34 PM [facility] eGFR 83 >=60 mL/min/1. 73m2 LAB CHEMISTRY METHOD 08/29/2024 2:34 PM [facility] Comment:Calculation based on the Chronic Kidney Disease Epidemiology Collaboration (CKD-EPI) equation refit without adjustment for race. BUN/Creatinine Ratio 23.5 LAB CHEMISTRY METHOD 08/29/2024 2:34 PM [facility] Calcium 9.6 8.5 - 10.5 mg/dL LAB CHEMISTRY METHOD 08/29/2024 2:34 PM [facility] Blood Venous blood specimen / Unknown Venipuncture / Unknown 08/29/2024 11:46 AM EDT 08/29/2024 11:47 AM EDT us Naif Mixon MD LAB BLOOD ORDERABLES Final R esult [facility] [address] [place] [address], [place] [phone] * Complete blood count (08/29/2024 10:14 AM [...] R esult [facility] [address] [place] [address], documented in this encounter Visit Diagnoses Diagnosis Schizophrenia, unspecified (CMS/HCC V24, CMS/HCC V28) Major depressive disorder, single episode, moderate (CMS/HCC V24, CMS/HCC V28) Major depressive disorder, single episode, moderate Other schizoaffective disorders (CMS/HCC V24, CMS/HCC V28) documented in this encounter Care Teams Tire Service Technician Relationship Specialty Start Date End Date Naif Mixon MD [address] [place] [address] PCP - General Family Medicine 05/20/24 documented as of this encounter
--- OUTSIDE RECORDS SUMMARY | 2025-03-10 12:18 | XMS_ITS | Encounter Summary ---
Author Organization [facility] Address [address] [place] [address] Care Team Providers Care Automation Operator Name Role Phone Naif Mixon MD Primary Care Provider [phone] Encounter Details Date Type Department Care Team (Late st Contact Info) Description 08/20/2024 Lab Requisition [facility] - Main Lab 299 [facility] [place] [address] Naif Mixon MD [address] [place] [address] Schizophrenia, unspecified (CMS/HCC V24, CMS/HCC V28); Major [...] mmol/L LAB CHEMISTRY METHOD 08/22/2024 3:03 PM [facility] Potassium 3.9 3.5 - 5.5 mmol/L LAB CHEMISTRY METHOD 08/22/2024 3:03 PM [facility] Chloride 105 96 - 110 mmol/L LAB CHEMISTRY METHOD 08/22/2024 3:03 PM [facility] CO2 27 21 - 32 mmol/L LAB CHEMISTRY METHOD 08/22/2024 3:03 PM [facility] Anion Gap 10 3 - 11 LAB CHEMISTRY METHOD 08/22/2024 3:03 PM [facility] Glucose 155(H) 70 - 100 mg/dL LAB CHEMISTRY METHOD 08/22/2024 3:03 PM [facility] BUN 26(H) 5 - 25 mg/dL LAB CHEMISTRY METHOD 08/22/2024 3:03 PM [facility] Creatinine 0.85 0.50 - 1.10 mg/dL LAB CHEMISTRY METHOD 08/22/2024 3:03 PM [facility] eGFR 79 >=60 mL/min/1. 73m2 LAB CHEMISTRY METHOD 08/22/2024 3:03 PM [facility] Comment:Calculation based on the Chronic Kidney Disease Epidemiology Collaboration (CKD-EPI) equation refit without adjustment for race. BUN/Creatinine Ratio 30.6 LAB CHEMISTRY METHOD 08/22/2024 3:03 PM [facility] Calcium 9.9 8.5 - 10.5 mg/dL LAB CHEMISTRY METHOD 08/22/2024 3:03 PM [facility] Blood Venous blood specimen / Unknown Venipuncture / Unknown 08/22/2024 10:08 AM EDT 08/22/2024 11:44 AM EDT us Naif Mixon MD LAB BLOOD ORDERABLES Final R esult [facility] [address] [place] [address], * (ABNORMAL) Complete blood count (08/22/2024 10:08 AM EDT) WBC 4.5(L) 4.8 - 10.8 K/mcL LAB HEMETOLOGY METHOD 08/22/2024 12:03 PM EDT [facility] RBC 3.80 3.80 - 4.80 M/mcL LAB HEMETOLOGY METHOD 08/22/2024 12:03 PM EDT [facility] Hemoglobin 12.0 11.5 - 16.0 g/dL LAB HEMETOLOGY METHOD 08/22/2024 12:03 PM EDT [facility] Hematocrit 35.7 35.0 - 47.0 % LAB HEMETOLOGY METHOD 08/22/2024 12:03 PM EDT [facility] MCV 93.7 79.0 - 98.0 FL LAB HEMETOLOGY METHOD 08/22/2024 12:03 PM EDT [facility] MCH 31.5 27.0 - 32.0 pcg LAB HEMETOLOGY METHOD 08/22/2024 12:03 PM EDT [facility] MCHC 33.6 32.0 - 37.0 g/dL LAB HEMETOLOGY METHOD 08/22/2024 12:03 PM EDT [facility] RDW 13.3 11.0 - 15.0 % LAB HEMETOLOGY METHOD 08/22/2024 12:03 PM EDT [facility] Platelets 194 130 - 400 K/mcL LAB HEMETOLOGY METHOD 08/22/2024 12:03 PM EDT [facility] MPV 9.5 7.0 - 11.0 FL LAB HEMETOLOGY METHOD 08/22/2024 12:03 PM EDT [facility] NRBC 0.0 <1.0 % LAB HEMETOLOGY METHOD 08/22/2024 12:03 PM EDT [facility] NRBC Absolute 0.00 <0.10 K/mcL LAB HEMETOLOGY METHOD 08/22/2024 12:03 PM EDT [facility] Blood Venous blood specimen / Unknown Venipuncture / Unknown 08/22/2024 10:08 AM EDT 08/22/2024 11:44 AM EDT us Naif Mixon MD LAB BLOOD ORDERABLES Final R esult [facility] [address] [place] [address], documented in this encounter Visit Diagnoses Diagnosis Schizophrenia, unspecified (CMS/HCC V24, CMS/HCC V28) Major depressive disorder, single episode, moderate (CMS/HCC V24, CMS/HCC V28) Major depressive disorder, single episode, moderate documented in this encounter Care Teams Automation Operator Relationship Specialty Start Date End Date Naif Mixon MD [address] [place] [address] PCP - General Family Medicine 05/20/24 documented as of this encounter
--- OUTSIDE RECORDS SUMMARY | 2025-03-10 12:18 | XMS_ITS | Encounter Summary ---
Author Organization [facility] Address [address] [place] [address] Phone Care Team Providers Care Home Health Registered Nurse Name Role Phone Stacey Reis MD Primary Care Provider [phone] Stacey Reis MD Unavailable [phone] Khurram Ruelas MD Unavailable + Khurram Ruelas MD Unavailable + Stacey Reis MD Unavailable [phone] Waylon Crespo MD Unavailable + Waylon Crespo MD Unavailable + Stacey Reis MD Unavailable [phone] Beryl Shirley DEHYDRATOR Unavailable [phone] Kaleigh Adams DEHYDRATOR Unavailable [phone] [facility] Catrina Mcclendon DEHYDRATOR Unavailable + [phone] Romain Bolanos DEHYDRATOR Unavailable MARLENE [email or web address] Yomi Bass MD Unavailable [phone] Keny Govea DEHYDRATOR Unavailable [phone] Unknown, Unknown Primary Care Provider Yomi Gray MD Unavailable [phone] Alba Harmon MD Unavailable Pcp, Unknown Primary Care Provider Unavailabl e Reason for Referral * MRI/CAT Scan - Closed Specialty Diagnoses / Procedures Referred By Jose ly Referred To Contact Radiology Diagnoses Unintentional weight loss Procedures CT PET Abdomen/Pelvis Khurram Ruelas MD Phone: tel: mailto:Zaid @[facility] Referral ID Status Reason Start Date Expiration Date Visits Re quested Visits Authorized [id number] Closed 06/24/2018 06/24/2019 1 1 * MRI/CAT Scan - Closed Specialty Diagnoses / Procedures Referred By Jose ly Referred To Contact Radiology Diagnoses Unintentional weight loss Procedures CT PET Chest Khurram Ruelas MD Phone: tel: mailto:Zaid @[facility] Referral ID Status Reason Start Date Expiration Date Visits Re quested Visits Authorized [id number] Closed 06/24/2018 06/24/2019 1 1 Encounter Details Date Type Department Care Team (Latest Contact Info) Description 06/24/2018 Ancillary Orders [facility]IC[facility] VIRTUAL DEPARTMENT [address] [place] [phone] Khurram Ruelas MD [address] [place] [address] Akash [email or web address] [place] Unintentional weight loss Social History Tobacco Use [...] EST [facility] [address] [address] documented as of this encounter Results * [...] documented as of this encounter Care Teams Home Health Registered Nurse Relationship Specialty Start Date End Date Stacey Reis MD PCP - General 03/11/14 02/16/22 Khurram Ruelas MD [address] [place] [phone] [email or web address] PCP - Resident PCP 12/01/16 11/29/18 Waylon Crespo MD [address] [place] [address] [address] [place] [address] [email or web address] PCP - Resident PCP 11/30/1811/29 Yomi Bass MD 15 [facility] [address]30 [place] [address] [email or web address] PCP - Resident PCP 11/30/21 02/16/22 Unknown, [place], PCP - General 03/03/22 11/16/23 Pcp, Unknown PCP - General 11/17/23 Stacey Reis MD [address] [place] [address] [email or web address] Insurance Assigned Provider 09/20/16 Khurram Ruelas MD [address] [place] [address] [email or web address] Partners Attributed Provider 01/10/1712/11 Stacey Reis MD [address] [place] [address] [email or web address] Insurance Assigned Provider 09/18/1810/09/18 Waylon Crespo MD [address] [place] [address] [address] [place] [address] [email or web address] Partners Attributed Provider 01/08/19 07/12/22 Stacey Reis MD [address] [place] [address] [email or web address] Insurance Assigned Provider 09/14/1909/13/22 Beryl Shirley, [address] [address] [email or web address] [facility] Social Work 01/24/20 07/16/20 AdamsKaleigh [facility] [address] [place] [phone] [email or web address] Vehicle Service Agent 06/06/20 07/31/20 [facility] Padmaja Mcclendonnifer, [facility] [address] [place] [phone] [email or web address] [facility] Social Work 07/17/20 07/18/21 [facility] [address] [place] [address] [email or web address]@[email or web address] Social Work 07/19/21 Keny Govea, [facility] [address] [place] [address] [email or web address] Social Work 01/03/22 Yomi Bass MD 15 [facility] [address] [place] [address] [email or web address] Partners Attributed Provider 07/12/22 06/13/23 Alba Harmon MD [address] [place] [address], 10th Floor, [address] [place] [address] [address] [place] [address] [email or web address] Insurance Assigned Provider 09/13/22 documented as of this encounter Additional Source Comments The information contained in this document represents components of the legal health record. It is not the complete legal health record.[facility]
--- OUTSIDE RECORDS SUMMARY | 2025-03-10 12:18 | XMS_ITS | Encounter Summary ---
Author Organization [facility] Address [address] [place] [address] Phone Care Team Providers Care Electrician Radio Name Role Phone Stacey Reis MD Primary Care Provider + [phone] Waylon Crespo MD Unavailable [phone] Waylon Crespo MD Unavailable [phone] Stacey Reis MD Unavailable [phone] Beryl Shirley NUCLEAR FUEL PROCESSING TECHNICIAN Unavailable [phone] Kaleigh Adams NUCLEAR FUEL PROCESSING TECHNICIAN Unavailable [phone] Catrina Lee NUCLEAR FUEL PROCESSING TECHNICIAN Unavailable + [phone] Romain Bolanos NUCLEAR FUEL PROCESSING TECHNICIAN Unavailable [email or web address] Yomi Bass MD Unavailable [phone] Keny Govea NUCLEAR FUEL PROCESSING TECHNICIAN Unavailable [phone] Unknown, Unknown Primary Care Provider Yomi Gray MD Unavailable [phone] Alba Harmon MD Unavailable [phone] Pcp, Unknown Primary Care Provider Unavailabl e Encounter Details Date Type Department Care Team (Late st Contact Info) Description 05/22/2020 Procedure Pass [facility] [address] [facility] [address] [place], [place] [id number] Social History Tobacco Use Types Packs/Day Years [...] EST [facility] [address] [place] [address] documented as of this encounter Goals Goal [...] documented as of this encounter Care Teams Electrician Radio Relationship Specialty Start Date End Date Stacey Reis MD [email or web address] PCP - General 03/11/14 02/16/22 Waylon Crespo MD 55 [facility] [address] [place] [address] [email or web address] PCP - Resident PCP 11/30/1811/29 Yomi Bass MD [address] [facility] [address] [place] [address] [email or web address] PCP - Resident PCP 11/30/21 02/16/22 German Porter MD PCP - General 03/03/22 11/16/23 Pcp, Unknown PCP - General 11/17/23 Waylon Crespo MD 55 [facility] [address] [place] [address] [email or web address] Attributed Provider 01/08/19 07/12/22 Stacey Reis MD [address] [place] [address] [address] [place] [address] [email or web address] Insurance Assigned Provider 09/14/1909/13/22 Beryl Shirley, [address] [address] [email or web address] Social Work 01/24/20 07/16/20 Kaleigh Adams [facility] [address] [place] [address] [email or web address] 06/06/20 07/31/20 [facility] Catrina Mcclendon [facility] [address] [place] [address] [email or web address] Social Work 07/17/20 07/18/21 Romain Bolanos, [address] [address] [email or web address] 07/19/21 Keny Govea, [facility] [address] [place] [address] [email or web address] 01/03/22 Yomi Bass MD [address] [facility] [address] [place] [address] [email or web address] Attributed Provider 07/12/22 06/13/23 Alba Harmon MD [address] [place] [address], 10th Floor, [address] [email or web address] [address] [place] [address] [email or web address] Insurance Assigned Provider 09/13/22 documented as of this encounter Additional Source Comments The information contained in this document represents components of the legal health record. It is not the complete legal health record.[facility]
--- OUTSIDE RECORDS SUMMARY | 2025-03-10 12:18 | XMS_ITS | Encounter Summary ---
Author Organization [facility] Address [address] [place] [phone] Care Team Providers Care Hospice Educator Name Role Phone Naif Mixon MD Primary Care Provider [phone] Encounter Details Date Type Department Care Team (Latest Contact Info) Description 07/23/2024 Lab Requisition [facility] - Main Lab [address] [facility] [place] [address] Naif Mixon MD [address] [place] [address] Schizophrenia, unspecified (CMS/HCC V24, CMS/HCC V28); Other [...] mmol/L LAB CHEMISTRY METHOD 07/25/2024 11:46 AM [facility] Potassium 4.4 3.5 - 5.5 mmol/L LAB CHEMISTRY METHOD 07/25/2024 11:46 AM [facility] Chloride 112(H) 96 - 110 mmol/L LAB CHEMISTRY METHOD 07/25/2024 11:46 AM [facility] CO2 25 21 - 32 mmol/L LAB CHEMISTRY METHOD 07/25/2024 11:46 AM [facility] Anion Gap 7 3 - 11 LAB CHEMISTRY METHOD 07/25/2024 11:46 AM [facility] Glucose 95 70 - 100 mg/dL LAB CHEMISTRY METHOD 07/25/2024 11:46 AM [facility] BUN 20 5 - 25 mg/dL LAB CHEMISTRY METHOD 07/25/2024 11:46 AM [facility] Creatinine 0.78 0.50 - 1.10 mg/dL LAB CHEMISTRY METHOD 07/25/2024 11:46 AM [facility] LAB eGFR 87 >=60 mL/min/1. 73m2 LAB CHEMISTRY METHOD 07/25/2024 11:46 AM [facility] LAB Comment:Calculation based on the Chronic Kidney Disease Epidemiology Collaboration (CKD-EPI) equation refit without adjustment for race. BUN/Creatinine Ratio 25.6 LAB CHEMISTRY METHOD 07/25/2024 11:46 AM [facility] Calcium 9.0 8.5 - 10.5 mg/dL LAB CHEMISTRY METHOD 07/25/2024 11:46 AM [facility] Blood Venous blood specimen / Unknown Venipuncture / Unknown 07/25/2024 7:47 AM EST 07/25/2024 11:08 AM EST us Naif Mixon MD LAB BLOOD ORDERABLES Final R esult [facility] [address] [place] [address], [place] [phone] * (ABNORMAL) Complete blood count (07/25/2024 7:47 AM EST) WBC 4.4(L) 4.8 - 10.8 K/mcL LAB HEMETOLOGY METHOD 07/25/2024 11:29 AM [facility] RBC 3.50(L) 3.80 - 4.80 M/mcL LAB HEMETOLOGY METHOD 07/25/2024 11:29 AM [facility] Hemoglobin 10.9(L) 11.5 - 16.0 g/dL LAB HEMETOLOGY METHOD 07/25/2024 11:29 AM [facility] Hematocrit 33.7(L) 35.0 - 47.0 % LAB HEMETOLOGY METHOD 07/25/2024 11:29 AM [facility] MCV 95.5 79.0 - 98.0 FL LAB HEMETOLOGY METHOD 07/25/2024 11:29 AM [facility] MCH 30.9 27.0 - 32.0 pcg LAB HEMETOLOGY METHOD 07/25/2024 11:29 AM [facility] MCHC 32.3 32.0 - 37.0 g/dL LAB HEMETOLOGY METHOD 07/25/2024 11:29 AM [facility] RDW 14.2 11.0 - 15.0 % LAB HEMETOLOGY METHOD 07/25/2024 11:29 AM [facility] Platelets 198 130 - 400 K/mcL LAB HEMETOLOGY METHOD 07/25/2024 11:29 AM EST [facility] MPV 9.2 7.0 - 11.0 FL LAB HEMETOLOGY METHOD 07/25/2024 11:29 AM EST [facility] NRBC 0.0 <1.0 % LAB HEMETOLOGY METHOD 07/25/2024 11:29 AM EST [facility] LAB NRBC Absolute 0.00 <0.10 K/mcL LAB HEMETOLOGY METHOD 07/25/2024 11:29 AM EST [facility] LAB Blood Venous blood specimen / Unknown Venipuncture / Unknown 07/25/2024 7:47 AM EST 07/25/2024 11:08 AM EST us Naif Mixon MD LAB BLOOD ORDERABLES Final R esult [facility] [address] [place] [address], documented in this encounter Visit Diagnoses Diagnosis Schizophrenia, unspecified (CMS/HCC V24, CMS/HCC V28) Other schizoaffective disorders (CMS/HCC V24, CMS/HCC V28) Major depressive disorder, single episode, moderate (CMS/HCC V24, CMS/HCC V28) Major depressive disorder, single episode, moderate documented in this encounter Care Teams Hospice Educator Relationship Specialty Start Date End Date Naif Mixon MD [address] [place] [address] PCP - General Family Medicine 05/20/24 documented as of this encounter
--- OUTSIDE RECORDS SUMMARY | 2025-03-10 12:18 | XMS_ITS | Encounter Summary ---
Author Organization [facility] Address [address] [place] [address] Care Team Providers Care Protective Signal Installer Helper Name Role Phone Naif Mixon MD Primary Care Provider [phone] Encounter Details Date Type Department Care Team (Late st Contact Info) Description 04/22/2024 Lab Requisition [facility] - Main Lab 299 [facility] [place] [address] Naif Mixon MD [address] [place] [address] Hypokalemia; Acute kidney failure, unspecified (CMS/HCC V24) [...] Final R esult [facility] [address] [place], [place] [address] [phone] * (ABNORMAL) Complete blood count (04/25/2024 7:49 AM EST) [facility] WBC 6.7 4.8 - 10.8 K/mcL LAB [...] LAB HEMETOLOGY METHOD 04/25/2024 11:57 AM EST [facility] Blood Venous blood specimen / Unknown Venipuncture / Unknown 04/25/2024 7:49 AM EST 04/25/2024 10:52 AM EST us Naif Mixon MD LAB BLOOD ORDERABLES Final R esult [facility] [address] [place] [address], documented in this encounter Visit Diagnoses Diagnosis Hypokalemia Hypopotassemia Acute kidney failure, unspecified (CMS/HCC V24) Acute kidney failure, unspecified documented in this encounter Care Teams Protective Signal Installer Helper Relationship Specialty Start Date End Date Naif Mixon MD [address] [place] [address] PCP - General Family Medicine 05/20/24 documented as of this encounter
--- OUTSIDE RECORDS SUMMARY | 2025-03-10 12:18 | XMS_ITS | Encounter Summary ---
Author Organization [facility] Address [address] [place] [phone] Care Team Providers Care Linux Systems Administrator Name Role Phone Naif Mixon MD Primary Care Provider [phone] Encounter Details Date Type Department Care Team (Late st Contact Info) Description 09/16/2024 Lab Requisition [facility] - Main Lab [address] [facility] [place] [address] Naif Mixon MD [address] [place] [address] Schizophrenia, unspecified (CMS/HCC V24, CMS/HCC V28); Major [...] mmol/L LAB CHEMISTRY METHOD 09/19/2024 11:19 AM [facility] Potassium 4.0 3.5 - 5.5 mmol/L LAB CHEMISTRY METHOD 09/19/2024 11:19 AM [facility] Chloride 108 96 - 110 mmol/L LAB CHEMISTRY METHOD 09/19/2024 11:19 AM [facility] CO2 27 21 - 32 mmol/L LAB CHEMISTRY METHOD 09/19/2024 11:19 AM [facility] Anion Gap 7 3 - 11 LAB CHEMISTRY METHOD 09/19/2024 11:19 AM [facility] Glucose 116(H) 70 - 100 mg/dL LAB CHEMISTRY METHOD 09/19/2024 11:19 AM [facility] BUN 22 5 - 25 mg/dL LAB CHEMISTRY METHOD 09/19/2024 11:19 AM [facility] Creatinine 0.82 0.50 - 1.10 mg/dL LAB CHEMISTRY METHOD 09/19/2024 11:19 AM [facility] eGFR 82 >=60 mL/min/1. 73m2 LAB CHEMISTRY METHOD 09/19/2024 11:19 AM [facility] LAB Comment:Calculation based on the Chronic Kidney Disease Epidemiology Collaboration (CKD-EPI) equation refit without adjustment for race. BUN/Creatinine Ratio 26.8 LAB CHEMISTRY METHOD 09/19/2024 11:19 AM [facility] Calcium 9.5 8.5 - 10.5 mg/dL LAB CHEMISTRY METHOD 09/19/2024 11:19 AM [facility] Blood Venous blood specimen / Unknown Venipuncture / Unknown 09/19/2024 7:16 AM EDT 09/19/2024 10:11 AM EDT us Naif Mixon MD LAB BLOOD ORDERABLES Final R esult [facility] [address] [place] [address], * (ABNORMAL) Complete blood count (09/19/2024 7:16 AM EDT) [facility] WBC 3.6(L) 4.8 - 10.8 K/mcL LAB HEMETOLOGY METHOD 09/19/2024 10:53 AM EDT [facility] RBC 3.80 3.80 - 4.80 M/mcL LAB HEMETOLOGY METHOD 09/19/2024 10:53 AM [facility] Hemoglobin 12.0 11.5 - 16.0 g/dL LAB HEMETOLOGY METHOD 09/19/2024 10:53 AM T [facility] Hematocrit 36.4 35.0 - 47.0 % LAB HEMETOLOGY METHOD 09/19/2024 10:53 AM [facility] MCV 95.0 79.0 - 98.0 FL LAB HEMETOLOGY METHOD 09/19/2024 10:53 AM [facility] MCH 31.3 27.0 - 32.0 pcg LAB HEMETOLOGY METHOD 09/19/2024 10:53 AM T [facility] MCHC 33.0 32.0 - 37.0 g/dL LAB HEMETOLOGY METHOD 09/19/2024 10:53 AM [facility] RDW 12.9 11.0 - 15.0 % LAB HEMETOLOGY METHOD 09/19/2024 10:53 AM [facility] Platelets 202 130 - 400 K/mcL LAB HEMETOLOGY METHOD 09/19/2024 10:53 AM [facility] MPV 9.1 7.0 - 11.0 FL LAB HEMETOLOGY METHOD 09/19/2024 10:53 AM EDT [facility] NRBC 0.0 <1.0 % LAB HEMETOLOGY METHOD 09/19/2024 10:53 AM EDT [facility] NRBC Absolute 0.00 <0.10 K/mcL LAB HEMETOLOGY METHOD 09/19/2024 10:53 AM EDT [facility] Blood Venous blood specimen / Unknown Venipuncture / Unknown 09/19/2024 7:16 AM EDT 09/19/2024 10:11 AM EDT Naif Mixon MD LAB BLOOD ORDERABLES Final R esult [facility] [address] [place] [address], documented in this encounter Visit Diagnoses Diagnosis Schizophrenia, unspecified (CMS/HCC V24, CMS/HCC V28) Major depressive disorder, single episode, moderate (CMS/HCC V24, CMS/HCC V28) Major depressive disorder, single episode, moderate documented in this encounter Care Teams Linux Systems Administrator Relationship Specialty Start Date End Date Naif Mixon MD [address] [place] [address] PCP - General Family Medicine 05/20/24 documented as of this encounter
--- OUTSIDE RECORDS SUMMARY | 2025-03-10 12:18 | XMS_ITS | Encounter Summary ---
Author Organization [facility] Address [address] [place] [address] Care Team Providers Care Ruffler Name Role Phone Naif Mixon MD Primary Care Provider [phone] Encounter Details Date Type Department Care Team (Late st Contact Info) Description 05/06/2024 Lab Requisition [facility] - Main Lab [address] [facility] [place] [address] Naif Mixon MD [address] [place] [address] Hypothyroidism, unspecified; Hypokalemia; Acute kidney failure, unspecified [...] mcIU/mL LAB CHEMISTRY METHOD 05/09/2024 12:37 PM [facility] Blood Venous blood specimen / Unknown Venipuncture / Unknown 05/09/2024 7:27 AM EST 05/09/2024 10:56 AM EST us Naif Mixon MD LAB BLOOD ORDERABLES Final R esult [facility] [address] [place] [address], * (ABNORMAL) Complete blood count (05/09/2024 7:27 AM EST) Pathologist [facility] WBC 7.3 4.8 - 10.8 K/mcL LAB HEMETOLOGY METHOD 05/09/2024 12:49 PM [facility] RBC 2.90(L) 3.80 - 4.80 M/mcL LAB HEMETOLOGY METHOD 05/09/2024 12:49 PM [facility] Hemoglobin 8.3(L) 11.5 - 16.0 g/dL LAB HEMETOLOGY METHOD 05/09/2024 12:49 PM [facility] Hematocrit 27.4(L) 35.0 - 47.0 % LAB HEMETOLOGY METHOD 05/09/2024 12:49 PM [facility] MCV 93.5 79.0 - 98.0 FL LAB HEMETOLOGY METHOD 05/09/2024 12:49 PM [facility] MCH 28.3 27.0 - 32.0 pcg LAB HEMETOLOGY METHOD 05/09/2024 12:49 PM [facility] MCHC 30.3(L) 32.0 - 37.0 g/dL LAB HEMETOLOGY METHOD 05/09/2024 12:49 PM [facility] RDW 16.5(H) 11.0 - 15.0 % LAB HEMETOLOGY METHOD 05/09/2024 12:49 PM [facility] Platelets 340 130 - 400 K/mcL LAB HEMETOLOGY METHOD 05/09/2024 12:49 PM [facility] MPV 9.4 7.0 - 11.0 FL LAB HEMETOLOGY METHOD 05/09/2024 12:49 PM [facility] NRBC 0.0 <1.0 % LAB HEMETOLOGY METHOD 05/09/2024 12:49 PM [facility] NRBC Absolute 0.00 <0.10 K/mcL LAB HEMETOLOGY METHOD 05/09/2024 12:49 PM [facility] Blood Venous blood specimen / Unknown 05/09/2024 7:27 AM EST 05/09/2024 11:16 AM EST Naif Mixon MD LAB BLOOD ORDERABLES Final R esult [facility] [address] [place] [address], * (ABNORMAL) Basic metabolic panel (05/09/2024 7:27 AM EST) Sodium 140 133 - 145 mmol/L LAB CHEMISTRY METHOD 05/09/2024 12:47 PM [facility] Potassium 4.5 3.5 - 5.5 mmol/L LAB CHEMISTRY METHOD 05/09/2024 12:47 PM [facility] Chloride 107 96 - 110 mmol/L LAB CHEMISTRY METHOD 05/09/2024 12:47 PM [facility] CO2 22 21 - 32 mmol/L LAB CHEMISTRY METHOD 05/09/2024 12:47 PM [facility] Anion Gap 11 3 - 11 LAB CHEMISTRY METHOD 05/09/2024 12:47 PM [facility] Glucose 72 70 - 100 mg/dL LAB CHEMISTRY METHOD 05/09/2024 12:47 PM [facility] BUN 16 5 - 25 mg/dL LAB CHEMISTRY METHOD 05/09/2024 12:47 PM [facility] Creatinine 0.61 0.50 - 1.10 mg/dL LAB CHEMISTRY METHOD 05/09/2024 12:47 PM [facility] eGFR 103 >=60 mL/min/1. 73m2 LAB CHEMISTRY METHOD 05/09/2024 12:47 PM [facility] Comment:Calculation based on the Chronic Kidney Disease Epidemiology Collaboration (CKD-EPI) equation refit without adjustment for race. BUN/Creatinine Ratio 26.2 LAB CHEMISTRY METHOD 05/09/2024 12:47 PM [facility] Calcium 8.4(L) 8.5 - 10.5 mg/dL LAB CHEMISTRY METHOD 05/09/2024 12:47 PM [facility] Blood Venous blood specimen / Unknown Venipuncture / Unknown 05/09/2024 7:27 AM EST 05/09/2024 10:56 AM EST us Naif Mixon MD LAB BLOOD ORDERABLES Final R esult [facility] [address] [place] [address], documented in this encounter Visit Diagnoses Diagnosis Hypothyroidism, unspecified Hypokalemia Hypopotassemia Acute kidney failure, unspecified (CMS/HCC V24) Acute kidney failure, unspecified documented in this encounter Care Teams Ruffler Relationship Specialty Start Date End Date Naif Mixon MD [address] [place] [address] PCP - General Family Medicine 05/20/24 documented as of this encounter
--- OUTSIDE RECORDS SUMMARY | 2025-03-10 12:18 | XMS_ITS | Clinical Summary ---
Author Organization [facility] Address [address] [place] [phone] Phone Care Team Providers Care Mobile Equipment Servicer Name Role Phone Pcp, Unknown Primary Care Provider Unavailabl e Allergies Active Allergy Reactions Criticality Noted Date Comments Albuterol Other (See Comments) 06/03/2012 hyperactivity, worsening of tremor; Medications ipratropium (ATROVENT HFA) 17 mcg/actuation inhaler Inhale 2 puffs into the lungs 4 (four) times a day. 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 90 tablet 3 11/26/19 23 Active Additional Information Patient not taking.Reported on 11/15/2024 Active Problems Patient Care Coordination No te Formatting of this note migh t be different from the original. Mcihael Kennedy (Pancho's Father) is phone number in [...] life being hacked by an unknown third republican. She reports many episodes of strange occurrences with phones, computers, and cars where the technology won't work and is being redirected to another tower observer. She cites this as a reason that we cannot reliably communicate with her by phone. Documented in a telephone encounter, ~ 6 months ago, a assistant chief of police in [place] reached out with concerns regarding this same behavior as Pancho had been frequently contacting the police department for help with her electronics being hacked. She reports that every phone she tries is unusable including landlines and thinks there is someone or some republican responsible. She doesn't not,as far as I [...] unable to do so (Beryl offered a [employer] issued phone but Pancho reported she already had one which experienced the same issues). Beryl will try to set Pancho up with reliable transportation to clinic visits through [place]. Unfortunately, in-person visits are the only method [...] a psychiatrist though prefers someone closer to [place]. 08/29/20 Our [facility] P team was able to generate a [...] Pancho and Sidra will meet with our social media marketing specialist Padmaja after our meeting to discuss local [...] a psychiatrist if close to her in [place]. Will refer to [facility] and hope they can communicate with her through her phone [phone] which she reports is working as of [...] unable to do so (Beryl offered a [employer] issued phone but Pancho reported she already had one which experienced the same issues). Beryl will try to set Pancho up with reliable transportation to clinic visits through [place]. Unfortunately, in-person visits are the only method [...] Continues to smoke. 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 Chest CT with emphysematous [...] why her PFTs are not appearing in [employer]. If the data was lost will have [...] had trouble loading it onto the [facility] [place], but was concerned about bleeding problems. 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 She recently saw her revenue research analyst at an outside facility who also strongly [...] my previous note. Her anxiety a main feedmobile driver of multitudes of her symptoms. She [...] reflux Recent negative stress tests with outside revenue research analyst (per her report) INTERVAL: --Still reports she [...] 09/07/2015 Overview (03/27/2017): Gastroesophageal reflux disease. Saw [facility] automatic embroidery machine tender Dr. Perez in 2008 for chest burning [...] PM EDT): Patient instructed to go to [facility] for first Zoster installment, she agreed. [...] LMTCB on her mobile voicemail. Tatiana Aguayo [facility] Access [id number] Rn Results ~ tel # ~ looking [...] canceling several appointments. She has been undergoin [id number] rituxan infusion with Dr. Peterson and reports significant improvement in her symptoms with the infusion. She continues to take her clonazepam and diazepam intermittently (please see the anxiety section for more detail) 06/2017: (last visit with director field services Dr. Peterson): The diagnosis of stiff- person [...] Chilango Lorenzana who has an office in [place]. Our office has been attempting to send [...] able to connect with the neurologist in [place]. I discussed with Pancho and Sidra the need for her to have a subspecialist follow her tremor as this is not something that should be managed by a PCP. 10/03/20 She reports that she has successfully set up appointment with a neurologist at [facility]. The first appointment is in the coming weeks. 11/13/20 Reportedly has not yet connected with a neurologist. The neurologist she initially wanted was not accepting patients. Her sister has taken charge of trying to find a neurologist. [facility] has an external referral. 04/24/21 She [...] been diligently looking for a neurologist in [facility] but haven't found one yet. They are trying for a third one in [place]. Pancho knows of a neurologist at [facility] [...] AM EDT): Being taken care of by [facility] for this Assessment & Plan (05/20/2021 11:37 AM EST): Her and her father are checking in with another neurologist in [place]. If she is unable to find a neurologist in [facility] we agreed she will need to come to someone in [place]. In 2019 reached out to movement disorder specialist at , Dr. Mike, who agreed to see Pancho, however, at that time Pancho had insurmountable issues with telephones/communication which interfered with establishing care. I gave her the number for Dr. Hurst's office if she cannot establish with the neurologist in [place]. Regarding management of akasthesia will increase propranolol [...] try to find a neurologist would be [facility] because it is about 20 minutes away from them and within the partner system so that I can read their notes. I will refer to [facility] and Pancho says she will go [...] she's having trouble finding a neurologist at [facility]. This is still a priority. Her sister has my contact information. Pancho will talk with her sister about it this week. I also offered that if we cannot find someone at [facility], we can try for neurology here. [...] Chilango Lorenzana who has an office in [place]. Our office has been attempting to send [...] Plan to loop in Dr. Peterson, her director field services, as well as place a neurology E [...] financial/legal reasons but at the time reports [phone] is the best number to reach her. [...] neurologist who specializes in GAD65 disorders at [facility], who has agreed to see Pancho. Plan to connect with Pancho by phone tomorrow to discuss steps moving forward, realizing that she lives in [facility] and commute to [place] is challenging. For now, plan to keep [...] her family's life being hacked by unknown republican (documented elsewhere), which may well be contributing [...] down to 113. Pancho notes that her powder blender broke recently so has not been taking [...] from propranolol to Toprol XL by her revenue research analyst back in September 2012. Prominent coarse tremor [...] Flovent BID - Patient will obtain Harry Hitesh record to fax over to our office. [...] EST [facility] [address] [address] Health Maintenance Due Date Last Done Comments SMOKING Hx and SMOKELESS TOBACCO SCREENING 1977 COLOGUARD 2009 COLONOSCOPY 2009 COLORECTAL CANCER SCREENING 2009 FIT TEST 2009 FOBT 2009 SIGMOIDOSCOPY 2009 VIRTUAL COLONOSCOPY 2009 ZOSTER VACCINES (1 of 2) 2014 DEPRESSION SCREENING 04/24/2022 04/24/2021 MAMMOGRAM 08/29/2022 08/29/2020, 08/07, 07/01/2013, Additional history exists Adult Td,Tdap Booster 04/19/2024 04/19/2014, 005 LIPID PANEL 11/16/2024 11/17/2023, 04/08, 04/23/2021, Additional history exists INFLUENZA VACCINE (#1) 2025 , 06/04/2020, 06/20/2019 COVID-19 VACCINE (3 - 2024- season) 2025 10/25/2020, 09/26/2020 BLOOD PRESSURE 05/17/2025 11/15/2024 PNEUMOCOCCAL VACCINES (50+ [...] Care Plan Chronic Condition Self-Management Beryl Worthington, [facility] Medical Devices Implanted Type Area Specialty Department Supervisor Device Identifier Shelf Expiration Date Model / [...] 9:44 AM EST) HCV ANTIBODY Negative Negative [facility] Comment:Antibodies to HCV no t detected. Does not exclude the possibility of exposure to HCV. 05/17/2024 9:44 AM EST 05/17/2024 12:40 PM EST Marilyn Porter MD LAB BLOOD ORDERABLES Final Resul t Performing Organization Address [facility] Co de Phone Number [address] [address] * (ABNORMAL) Lipid panel (11/17/2023 9:03 AM EDT) HDL 42 35 - 100 mg/dL [facility] CHOLESTEROL 199 <200 mg/dL [facility] TRIGLYCERIDES 130 40 - 150 mg/dL [facility] LDL 131(H) 50 - 129 mg/dL [facility] CARDIAC RISK RATIO 4.7 0.0 - 5.0 [facility] NON-HDL CHOLESTEROL 157 mg/dL [facility] Comment:NCEP ATP III guideli gallito suggest a non-HDL cholesterol goal 30 mg/dl higher than the patient-specific LDL goal. 11/17/2023 9:03 AM EDT 11/17/2023 3:49 PM EDT Cliff Horner MD LAB BLOOD ORDERABLES Final Resul t Performing Organization Address [facility] Co de Phone Number [address] [address] * BI MAMMOGRAM SCREENING WITH TOMOSYNTHESIS WITH [...] 02/08/2020 Insurance MEDICARE PART A & B [facility] HEALTH MEDICARE PART A & B [place] MED[place] & [place] [facility] & B Member Subscriber Plan / Payer ( fective 2008-Present) Name:Pancho Kennedy Member ID:[id number] Relation to Subscriber:Self Name:Pancho Kennedy Subscriber ID:[id number] Payer ID:[id number] Group ID:Not on file Type:Medicare Address: [facility] [employer] [facility] [address] [place] [phone] [place] MEDICARE PART A & B [facility] & B [facility] & [place] MED[place] PART A & B [facility] Care Teams Mobile Equipment Servicer Relationship Specialty Start Date End Date Pcp, Unknown PCP - General 11/17/23 Additional Source Comments The information contained in this document represents components of the legal health record. It is not the complete legal health record.[facility]
--- OUTSIDE RECORDS SUMMARY | 2025-03-10 12:18 | XMS_ITS | Encounter Summary ---
Author Organization [facility] Address [address] [place] [phone] Care Team Providers Care Rec Therapist Name Role Phone Naif Mixon MD Primary Care Provider [phone] Encounter Details Date Type Department Care Team (Late st Contact Info) Description 07/01/2024 Lab Requisition [facility] - Main Lab [address] [facility] [place] [address] Naif Mixon MD [address] [place] [address] Major depressive disorder, single episode, moderate (CMS/HCC [...] mmol/L LAB CHEMISTRY METHOD 07/04/2024 1:41 PM [facility] Potassium 4.4 3.5 - 5.5 mmol/L LAB CHEMISTRY METHOD 07/04/2024 1:41 PM [facility] Chloride 107 96 - 110 mmol/L LAB CHEMISTRY METHOD 07/04/2024 1:41 PM [facility] CO2 28 21 - 32 mmol/L LAB CHEMISTRY METHOD 07/04/2024 1:41 PM [facility] Anion Gap 5 3 - 11 LAB CHEMISTRY METHOD 07/04/2024 1:41 PM [facility] Glucose 95 70 - 100 mg/dL LAB CHEMISTRY METHOD 07/04/2024 1:41 PM [facility] BUN 24 5 - 25 mg/dL LAB CHEMISTRY METHOD 07/04/2024 1:41 PM [facility] Creatinine 0.75 0.50 - 1.10 mg/dL LAB CHEMISTRY METHOD 07/04/2024 1:41 PM [facility] eGFR 91 >=60 mL/min/1. 73m2 LAB CHEMISTRY METHOD 07/04/2024 1:41 PM [facility] Comment:Calculation based on the Chronic Kidney Disease Epidemiology Collaboration (CKD-EPI) equation refit without adjustment for race. BUN/Creatinine Ratio 32.0 LAB CHEMISTRY METHOD 07/04/2024 1:41 PM [facility] Calcium 9.4 8.5 - 10.5 mg/dL LAB CHEMISTRY METHOD 07/04/2024 1:41 PM [facility] Blood Venous blood specimen / Unknown Venipuncture / Unknown 07/04/2024 8:55 AM EST 07/04/2024 11:57 AM EST Naif Mixon MD LAB BLOOD ORDERABLES Final R esult [facility] [address] [place] [address], * (ABNORMAL) Complete blood count (07/04/2024 8:55 AM EST) [facility] WBC 5.4 4.8 - 10.8 K/mcL LAB HEMETOLOGY METHOD 07/04/2024 1:50 PM EST [facility] RBC 3.90 3.80 - 4.80 M/mcL LAB HEMETOLOGY METHOD 07/04/2024 1:50 PM EST [facility] Hemoglobin 11.8 11.5 - 16.0 g/dL LAB HEMETOLOGY METHOD 07/04/2024 1:50 PM EST [facility] Hematocrit 37.5 35.0 - 47.0 % LAB HEMETOLOGY METHOD 07/04/2024 1:50 PM EST [facility] MCV 96.4 79.0 - 98.0 FL LAB HEMETOLOGY METHOD 07/04/2024 1:50 PM EST [facility] MCH 30.3 27.0 - 32.0 pcg LAB HEMETOLOGY METHOD 07/04/2024 1:50 PM EST [facility] MCHC 31.5(L) 32.0 - 37.0 g/dL LAB HEMETOLOGY METHOD 07/04/2024 1:50 PM EST [facility] RDW 14.9 11.0 - 15.0 % LAB HEMETOLOGY METHOD 07/04/2024 1:50 PM EST [facility] Platelets 199 130 - 400 K/mcL LAB HEMETOLOGY METHOD 07/04/2024 1:50 PM EST [facility] MPV 10.1 7.0 - 11.0 FL LAB HEMETOLOGY METHOD 07/04/2024 1:50 PM EST [facility] NRBC 0.0 <1.0 % LAB HEMETOLOGY METHOD 07/04/2024 1:50 PM EST [facility] NRBC Absolute 0.00 <0.10 K/mcL LAB HEMETOLOGY METHOD 07/04/2024 1:50 PM EST [facility] Blood Venous blood specimen / Unknown Venipuncture / Unknown 07/04/2024 8:55 AM EST 07/04/2024 11:57 AM EST us Naif Mixon MD LAB BLOOD ORDERABLES Final R esult [facility] [address] [place] [address], documented in this encounter Visit Diagnoses Diagnosis Major depressive disorder, single episode, moderate (CMS/HCC V24, CMS/HCC V28) Major depressive disorder, single episode, moderate Schizophrenia, unspecified (CMS/HCC V24, CMS/HCC V28) documented in this encounter Care Teams Rec Therapist Relationship Specialty Start Date End Date Naif Mixon MD [address] [place] [address] PCP - General Family Medicine 05/20/24 documented as of this encounter
--- OUTSIDE RECORDS SUMMARY | 2025-03-10 12:18 | XMS_ITS | Encounter Summary ---
Author Organization [facility] Address [address] [place] [phone] Care Team Providers Care Maintenance Shop Manager Name Role Phone Naif Mixon MD Primary Care Provider [phone] Encounter Details Date Type Department Care Team (Late st Contact Info) Description 07/17/2024 Lab Requisition [facility] - Main Lab [address] [facility] [place] [address] Naif Mixon MD [address] [place] [address] Major depressive disorder, single episode, moderate (CMS/HCC [...] mmol/L LAB CHEMISTRY METHOD 07/18/2024 5:23 PM [facility] Potassium 4.2 3.5 - 5.5 mmol/L LAB CHEMISTRY METHOD 07/18/2024 5:23 PM [facility] Chloride 105 96 - 110 mmol/L LAB CHEMISTRY METHOD 07/18/2024 5:23 PM [facility] CO2 29 21 - 32 mmol/L LAB CHEMISTRY METHOD 07/18/2024 5:23 PM [facility] Anion Gap 6 3 - 11 LAB CHEMISTRY METHOD 07/18/2024 5:23 PM [facility] Glucose 162(H) 70 - 100 mg/dL LAB CHEMISTRY METHOD 07/18/2024 5:23 PM [facility] BUN 22 5 - 25 mg/dL LAB CHEMISTRY METHOD 07/18/2024 5:23 PM [facility] Creatinine 0.93 0.50 - 1.10 mg/dL LAB CHEMISTRY METHOD 07/18/2024 5:23 PM [facility] eGFR 71 >=60 mL/min/1. 73m2 LAB CHEMISTRY METHOD 07/18/2024 5:23 PM [facility] Comment:Calculation based on the Chronic Kidney Disease Epidemiology Collaboration (CKD-EPI) equation refit without adjustment for race. BUN/Creatinine Ratio 23.7 LAB CHEMISTRY METHOD 07/18/2024 5:23 PM [facility] Calcium 9.6 8.5 - 10.5 mg/dL LAB CHEMISTRY METHOD 07/18/2024 5:23 PM [facility] Blood Venous blood specimen / Unknown Venipuncture / Unknown 07/18/2024 9:59 AM EST 07/18/2024 1:37 PM EST us Naif Mixon MD LAB BLOOD ORDERABLES Final R esult [facility] [address] [place] [address], * (ABNORMAL) Complete blood count (07/18/2024 9:59 AM EST) [facility] Signature WBC 4.1(L) 4.8 - 10.8 K/mcL LAB HEMETOLOGY METHOD 07/18/2024 2:58 PM [facility] RBC 3.80 3.80 - 4.80 M/mcL LAB HEMETOLOGY METHOD 07/18/2024 2:58 PM [facility] Hemoglobin 11.7 11.5 - 16.0 g/dL LAB HEMETOLOGY METHOD 07/18/2024 2:58 PM [facility] Hematocrit 36.0 35.0 - 47.0 % LAB HEMETOLOGY METHOD 07/18/2024 2:58 PM [facility] MCV 94.0 79.0 - 98.0 FL LAB HEMETOLOGY METHOD 07/18/2024 2:58 PM [facility] MCH 30.5 27.0 - 32.0 pcg LAB HEMETOLOGY METHOD 07/18/2024 2:58 PM [facility] MCHC 32.5 32.0 - 37.0 g/dL LAB HEMETOLOGY METHOD 07/18/2024 2:58 PM EST [facility] RDW 14.3 11.0 - 15.0 % LAB HEMETOLOGY METHOD 07/18/2024 2:58 PM [facility] Platelets 209 130 - 400 K/mcL LAB HEMETOLOGY METHOD 07/18/2024 2:58 PM [facility] MPV 9.5 7.0 - 11.0 FL LAB HEMETOLOGY METHOD 07/18/2024 2:58 PM [facility] NRBC 0.0 <1.0 % LAB HEMETOLOGY METHOD 07/18/2024 2:58 PM EST [facility] NRBC Absolute 0.00 <0.10 K/mcL LAB HEMETOLOGY METHOD 07/18/2024 2:58 PM EST [facility] Blood Venous blood specimen / Unknown Venipuncture / Unknown 07/18/2024 9:59 AM EST 07/18/2024 1:37 PM EST us Naif Mixon MD LAB BLOOD ORDERABLES Final R esult [facility] [address] [place] [address], documented in this encounter Visit Diagnoses Diagnosis Major depressive disorder, single episode, moderate (CMS/HCC V24, CMS/HCC V28) Major depressive disorder, single episode, moderate Schizophrenia, unspecified (CMS/HCC V24, CMS/HCC V28) documented in this encounter Care Teams Maintenance Shop Manager Relationship Specialty Start Date End Date Naif Mixon MD [address] [place] [address] PCP - General Family Medicine 05/20/24 documented as of this encounter
--- OUTSIDE RECORDS SUMMARY | 2025-03-10 12:18 | XMS_ITS | Encounter Summary ---
Author Organization [facility] Address [address] [place] [phone] Care Team Providers Care [employer] Name Role Phone Naif Mixon MD Primary Care Provider [phone] Encounter Details Date Type Department Care Team (Late st Contact Info) Description 06/17/2024 Lab Requisition [facility] - Main Lab [address] [facility] [place] [address] Naif Mixon MD [address] [place] [address] Major depressive disorder, single episode, moderate (CMS/HCC [...] mmol/L LAB CHEMISTRY METHOD 06/20/2024 12:31 PM [facility] Potassium 4.4 3.5 - 5.5 mmol/L LAB CHEMISTRY METHOD 06/20/2024 12:31 PM [facility] Chloride 107 96 - 110 mmol/L LAB CHEMISTRY METHOD 06/20/2024 12:31 PM [facility] CO2 28 21 - 32 mmol/L LAB CHEMISTRY METHOD 06/20/2024 12:31 PM [facility] Anion Gap 6 3 - 11 LAB CHEMISTRY METHOD 06/20/2024 12:31 PM [facility] Glucose 83 70 - 100 mg/dL LAB CHEMISTRY METHOD 06/20/2024 12:31 PM [facility] BUN 23 5 - 25 mg/dL LAB CHEMISTRY METHOD 06/20/2024 12:31 PM [facility] Creatinine 0.86 0.50 - 1.10 mg/dL LAB CHEMISTRY METHOD 06/20/2024 12:31 PM [facility] eGFR 77 >=60 mL/min/1. 73m2 LAB CHEMISTRY METHOD 06/20/2024 12:31 PM [facility] Comment:Calculation based on the Chronic Kidney Disease Epidemiology Collaboration (CKD-EPI) equation refit without adjustment for race. BUN/Creatinine Ratio 26.7 LAB CHEMISTRY METHOD 06/20/2024 12:31 PM [facility] Calcium 9.0 8.5 - 10.5 mg/dL LAB CHEMISTRY METHOD 06/20/2024 12:31 PM [facility] Blood Venous blood specimen / Unknown Venipuncture / Unknown 06/20/2024 8:01 AM EST 06/20/2024 10:48 AM EST Naif Mixon MD LAB BLOOD ORDERABLES Final R esult [facility] [address] [place] [address], * (ABNORMAL) Complete blood count (06/20/2024 8:01 AM EST) [facility] Signature WBC 4.6(L) 4.8 - 10.8 K/mcL LAB HEMETOLOGY METHOD 06/20/2024 11:19 AM EST [facility] RBC 3.90 3.80 - 4.80 M/mcL LAB HEMETOLOGY METHOD 06/20/2024 11:19 AM EST [facility] Hemoglobin 11.7 11.5 - 16.0 g/dL LAB HEMETOLOGY METHOD 06/20/2024 11:19 AM [facility] Hematocrit 37.8 35.0 - 47.0 % LAB HEMETOLOGY METHOD 06/20/2024 11:19 AM [facility] MCV 97.7 79.0 - 98.0 FL LAB HEMETOLOGY METHOD 06/20/2024 11:19 AM [facility] MCH 30.2 27.0 - 32.0 pcg LAB HEMETOLOGY METHOD 06/20/2024 11:19 AM [facility] MCHC 31.0(L) 32.0 - 37.0 g/dL LAB HEMETOLOGY METHOD 06/20/2024 11:19 AM [facility] RDW 16.2(H) 11.0 - 15.0 % LAB HEMETOLOGY METHOD 06/20/2024 11:19 AM [facility] Platelets 235 130 - 400 K/mcL LAB HEMETOLOGY METHOD 06/20/2024 11:19 AM [facility] MPV 9.8 7.0 - 11.0 FL LAB HEMETOLOGY METHOD 06/20/2024 11:19 AM [facility] NRBC 0.0 <1.0 % LAB HEMETOLOGY METHOD 06/20/2024 11:19 AM EST [facility] NRBC Absolute 0.00 <0.10 K/mcL LAB HEMETOLOGY METHOD 06/20/2024 11:19 AM EST [facility] Blood Venous blood specimen / Unknown Venipuncture / Unknown 06/20/2024 8:01 AM EST 06/20/2024 10:47 AM EST us Naif Mixon MD LAB BLOOD ORDERABLES Final R esult [facility] [address] [place] [address], documented in this encounter Visit Diagnoses Diagnosis Major depressive disorder, single episode, moderate (CMS/HCC V24, CMS/HCC V28) Major depressive disorder, single episode, moderate Schizophrenia, unspecified (CMS/HCC V24, CMS/HCC V28) documented in this encounter Care Teams [employer] Relationship Specialty Start Date End Date Naif Mixon MD [address] [place] [address] PCP - General Family Medicine 05/20/24 documented as of this encounter
--- OUTSIDE RECORDS SUMMARY | 2025-03-10 12:18 | XMS_ITS | Encounter Summary ---
Author Organization [facility] Address [address] [place] [phone] Care Team Providers Care Web Content Writer Name Role Phone Naif Mixon MD Primary Care Provider [phone] Encounter Details Date Type Department Care Team (Late st Contact Info) Description 06/13/2024 Lab Requisition [facility] - Main Lab 299 [facility] [place] [address] Naif Mixon MD [address] [place] [address] Depression, unspecified; Stiff-man syndrome; Schizophrenia, unspecified (CMS/HCC [...] LAB CHEMISTRY METHOD 06/13/2024 12:20 PM [facility] Potassium 4.3 3.5 - 5.5 mmol/L LAB CHEMISTRY METHOD 06/13/2024 12:20 PM [facility] Chloride 109 96 - 110 mmol/L LAB CHEMISTRY METHOD 06/13/2024 12:20 PM [facility] CO2 27 21 - 32 mmol/L LAB CHEMISTRY METHOD 06/13/2024 12:20 PM [facility] Anion Gap 4 3 - 11 LAB CHEMISTRY METHOD 06/13/2024 12:20 PM [facility] Glucose 106(H) 70 - 100 mg/dL LAB CHEMISTRY METHOD 06/13/2024 12:20 PM [facility] BUN 32(H) 5 - 25 mg/dL LAB CHEMISTRY METHOD 06/13/2024 12:20 PM [facility] Creatinine 0.80 0.50 - 1.10 mg/dL LAB CHEMISTRY METHOD 06/13/2024 12:20 PM [facility] eGFR 84 >=60 mL/min/1. 73m2 LAB CHEMISTRY METHOD 06/13/2024 12:20 PM [facility] Comment:Calculation based on the Chronic Kidney Disease Epidemiology Collaboration (CKD-EPI) equation refit without adjustment for race. BUN/Creatinine Ratio 40.0 LAB CHEMISTRY METHOD 06/13/2024 12:20 PM [facility] Calcium 8.9 8.5 - 10.5 mg/dL LAB CHEMISTRY METHOD 06/13/2024 12:20 PM [facility] Blood Venous blood specimen / Unknown Venipuncture / Unknown 06/13/2024 8:15 AM EST 06/13/2024 10:49 AM EST us Naif Mixon MD LAB BLOOD ORDERABLES Final R esult [facility] [address] [place] [address], * (ABNORMAL) Complete blood count (06/13/2024 8:15 AM EST) [facility] WBC 5.3 4.8 - 10.8 K/mcL LAB HEMETOLOGY METHOD 06/13/2024 12:53 PM EST [facility] RBC 3.40(L) 3.80 - 4.80 M/mcL LAB HEMETOLOGY METHOD 06/13/2024 12:53 PM [facility] Hemoglobin 10.3(L) 11.5 - 16.0 g/dL LAB HEMETOLOGY METHOD 06/13/2024 12:53 PM [facility] Hematocrit 33.2(L) 35.0 - 47.0 % LAB HEMETOLOGY METHOD 06/13/2024 12:53 PM [facility] MCV 98.5(H) 79.0 - 98.0 FL LAB HEMETOLOGY METHOD 06/13/2024 12:53 PM [facility] MCH 30.6 27.0 - 32.0 pcg LAB HEMETOLOGY METHOD 06/13/2024 12:53 PM [facility] MCHC 31.0(L) 32.0 - 37.0 g/dL LAB HEMETOLOGY METHOD 06/13/2024 12:53 PM [facility] RDW 16.6(H) 11.0 - 15.0 % LAB HEMETOLOGY METHOD 06/13/2024 12:53 PM [facility] Platelets 269 130 - 400 K/mcL LAB HEMETOLOGY METHOD 06/13/2024 12:53 PM [facility] MPV 9.7 7.0 - 11.0 FL LAB HEMETOLOGY METHOD 06/13/2024 12:53 PM [facility] NRBC 0.0 <1.0 % LAB HEMETOLOGY METHOD 06/13/2024 12:53 PM EST [facility] NRBC Absolute 0.00 <0.10 K/mcL LAB HEMETOLOGY METHOD 06/13/2024 12:53 PM EST [facility] Blood Venous blood specimen / Unknown Venipuncture / Unknown 06/13/2024 8:15 AM EST 06/13/2024 10:49 AM EST Naif Mixon MD LAB BLOOD ORDERABLES Final R esult [facility] [address] [place] [address], documented in this encounter Visit Diagnoses Diagnosis Depression, 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
--- OUTSIDE RECORDS SUMMARY | 2025-03-10 12:18 | XMS_ITS | Encounter Summary ---
Author Organization [facility] Address [address] [place] [phone] Care Team Providers Care Skin Care Consultant Name Role Phone Naif Mixon MD Primary Care Provider + [phone] Encounter Details Date Type Department Care Team (Late st Contact Info) Description 07/29/2024 Lab Requisition [facility] - Main Lab 299 [facility] [employer] [place] [address] Naif Mixon MD [address] [place] [address] Schizophrenia, unspecified (CMS/HCC V24, CMS/HCC V28); Major [...] mmol/L LAB CHEMISTRY METHOD 08/01/2024 11:42 AM [facility] Potassium 4.4 3.5 - 5.5 mmol/L LAB CHEMISTRY METHOD 08/01/2024 11:42 AM [facility] Chloride 108 96 - 110 mmol/L LAB CHEMISTRY METHOD 08/01/2024 11:42 AM [facility] CO2 27 21 - 32 mmol/L LAB CHEMISTRY METHOD 08/01/2024 11:42 AM [facility] Anion Gap 7 3 - 11 LAB CHEMISTRY METHOD 08/01/2024 11:42 AM [facility] Glucose 94 70 - 100 mg/dL LAB CHEMISTRY METHOD 08/01/2024 11:42 AM [facility] BUN 25 5 - 25 mg/dL LAB CHEMISTRY METHOD 08/01/2024 11:42 AM [facility] Creatinine 0.84 0.50 - 1.10 mg/dL LAB CHEMISTRY METHOD 08/01/2024 11:42 AM [facility] eGFR 80 >=60 mL/min/1. 73m2 LAB CHEMISTRY METHOD 08/01/2024 11:42 AM [facility] Comment:Calculation based on the Chronic Kidney Disease Epidemiology Collaboration (CKD-EPI) equation refit without adjustment for race. BUN/Creatinine Ratio 29.8 LAB CHEMISTRY METHOD 08/01/2024 11:42 AM [facility] Calcium 9.7 8.5 - 10.5 mg/dL LAB CHEMISTRY METHOD 08/01/2024 11:42 AM [facility] Blood Venous blood specimen / Unknown Venipuncture / Unknown 08/01/2024 5:42 AM EST 08/01/2024 10:54 AM EST Naif Mixon MD LAB BLOOD ORDERABLES Final R esult [facility] [address] [place] [address], * (ABNORMAL) Complete blood count (08/01/2024 5:42 AM EST) [facility] WBC 4.0(L) 4.8 - 10.8 K/mcL LAB HEMETOLOGY METHOD 08/01/2024 12:[address] [facility] RBC 3.90 3.80 - 4.80 M/mcL LAB HEMETOLOGY METHOD 08/01/2024 12:[address] [facility] Hemoglobin 12.0 11.5 - 16.0 g/dL LAB HEMETOLOGY METHOD 08/01/2024 12:39 PM [facility] Hematocrit 38.0 35.0 - 47.0 % LAB HEMETOLOGY METHOD 08/01/2024 12:[address] [facility] MCV 97.4 79.0 - 98.0 FL LAB HEMETOLOGY METHOD 08/01/2024 12:39 PM [facility] MCH 30.8 27.0 - 32.0 pcg LAB HEMETOLOGY METHOD 08/01/2024 12:39 PM [facility] MCHC 31.6(L) 32.0 - 37.0 g/dL LAB HEMETOLOGY METHOD 08/01/2024 12:[address] [facility] RDW 13.9 11.0 - 15.0 % LAB HEMETOLOGY METHOD 08/01/2024 12:39 PM [facility] Platelets 204 130 - 400 K/mcL LAB HEMETOLOGY METHOD 08/01/2024 12:39 PM [facility] MPV 9.5 7.0 - 11.0 FL LAB HEMETOLOGY METHOD 08/01/2024 12:39 PM [facility] NRBC 0.0 <1.0 % LAB HEMETOLOGY METHOD 08/01/2024 12:[address] [facility] NRBC Absolute 0.00 <0.10 K/mcL LAB HEMETOLOGY METHOD 08/01/2024 12:[address] [facility] Blood Venous blood specimen / Unknown Venipuncture / Unknown 08/01/2024 5:42 AM EST 08/01/2024 10:54 AM EST us Naif Mixon MD LAB BLOOD ORDERABLES Final R esult [facility] [address] [place] [address], documented in this encounter Visit Diagnoses Diagnosis Schizophrenia, unspecified (CMS/HCC V24, CMS/HCC V28) Major depressive disorder, single episode, moderate (CMS/HCC V24, CMS/HCC V28) Major depressive disorder, single episode, moderate documented in this encounter Care Teams Skin Care Consultant Relationship Specialty Start Date End Date Naif Mixon MD [address] [place] [address] PCP - General Family Medicine 05/20/24 documented as of this encounter
--- OUTSIDE RECORDS SUMMARY | 2025-03-10 12:18 | XMS_ITS | Encounter Summary ---
Author Organization [facility] Address [address] [place] [phone] Care Team Providers Care Computer Graphic Artist Name Role Phone Naif Mixon MD Primary Care Provider [phone] Encounter Details Date Type Department Care Team (Late st Contact Info) Description 04/29/2024 Lab Requisition [facility] - Main Lab 299 [facility] [place] [address] Naif Mixon MD [address] [place] [address] Hypokalemia; Acute kidney failure, unspecified (CMS/HCC V24) [...] mmol/L LAB CHEMISTRY METHOD 05/02/2024 10:30 AM [facility] Potassium 3.9 3.5 - 5.5 mmol/L LAB CHEMISTRY METHOD 05/02/2024 10:30 AM [facility] Chloride 111(H) 96 - 110 mmol/L LAB CHEMISTRY METHOD 05/02/2024 10:30 AM [facility] CO2 26 21 - 32 mmol/L LAB CHEMISTRY METHOD 05/02/2024 10:30 AM [facility] Anion Gap 7 3 - 11 LAB CHEMISTRY METHOD 05/02/2024 10:30 AM [facility] Glucose 80 70 - 100 mg/dL LAB CHEMISTRY METHOD 05/02/2024 10:30 AM [facility] BUN 14 5 - 25 mg/dL LAB CHEMISTRY METHOD 05/02/2024 10:30 AM [facility] Creatinine 0.50 0.50 - 1.10 mg/dL LAB CHEMISTRY METHOD 05/02/2024 10:30 AM [facility] eGFR 108 >=60 mL/min/1. 73m2 LAB CHEMISTRY METHOD 05/02/2024 10:30 AM [facility] Comment:Calculation based on the Chronic Kidney Disease Epidemiology Collaboration (CKD-EPI) equation refit without adjustment for race. BUN/Creatinine Ratio 28.0 LAB CHEMISTRY METHOD 05/02/2024 10:30 AM [facility] Calcium 8.3(L) 8.5 - 10.5 mg/dL LAB CHEMISTRY METHOD 05/02/2024 10:30 AM [facility] Blood Venous blood specimen / Unknown Venipuncture / Unknown 05/02/2024 6:22 AM EST 05/02/2024 9:28 AM EST us Naif Mixon MD LAB BLOOD ORDERABLES Final R esult [facility] [address] [place] [address], * (ABNORMAL) Complete blood count (05/02/2024 6:22 AM EST) [facility] WBC 4.9 4.8 - 10.8 K/mcL LAB HEMETOLOGY METHOD 05/02/2024 10:07 AM [facility] RBC 2.80(L) 3.80 - 4.80 M/mcL LAB HEMETOLOGY METHOD 05/02/2024 10:07 AM [facility] Hemoglobin 7.9(L) 11.5 - 16.0 g/dL LAB HEMETOLOGY METHOD 05/02/2024 10:07 AM [facility] Hematocrit 26.5(L) 35.0 - 47.0 % LAB HEMETOLOGY METHOD 05/02/2024 10:07 AM [facility] MCV 95.7 79.0 - 98.0 FL LAB HEMETOLOGY METHOD 05/02/2024 10:07 AM [facility] MCH 28.5 27.0 - 32.0 pcg LAB HEMETOLOGY METHOD 05/02/2024 10:07 AM [facility] MCHC 29.8(L) 32.0 - 37.0 g/dL LAB HEMETOLOGY METHOD 05/02/2024 10:07 AM [facility] RDW 16.3(H) 11.0 - 15.0 % LAB HEMETOLOGY METHOD 05/02/2024 10:07 AM [facility] Platelets 315 130 - 400 K/mcL LAB HEMETOLOGY METHOD 05/02/2024 10:07 AM [facility] MPV 9.5 7.0 - 11.0 FL LAB HEMETOLOGY METHOD 05/02/2024 10:07 AM [facility] NRBC 0.0 <1.0 % LAB HEMETOLOGY METHOD 05/02/2024 10:07 AM [facility] NRBC Absolute 0.00 <0.10 K/mcL LAB HEMETOLOGY METHOD 05/02/2024 10:07 AM EST [facility] Blood Venous blood specimen / Unknown Venipuncture / Unknown 05/02/2024 6:22 AM EST 05/02/2024 9:28 AM EST Naif Mixon MD LAB BLOOD ORDERABLES Final R esult [facility] [address] [place] [address], documented in this encounter Visit Diagnoses Diagnosis Hypokalemia Hypopotassemia Acute kidney failure, unspecified (CMS/HCC V24) Acute kidney failure, unspecified documented in this encounter Care Teams Computer Graphic Artist Relationship Specialty Start Date End Date Naif Mixon MD [address] [place] [address] PCP - General Family Medicine 05/20/24 documented as of this encounter
--- OUTSIDE RECORDS SUMMARY | 2025-03-10 12:18 | XMS_ITS | Encounter Summary ---
Author Organization [facility] Address [address] [place] [phone] Care Team Providers Care Fuel Storage Technician Name Role Phone Naif Mixon MD Primary Care Provider [phone] Encounter Details Date Type Department Care Team (Late st Contact Info) Description 05/14/2024 Lab Requisition [facility] - Main Lab 299 [facility] [place] [address] Naif Mixon MD [address] [place] [address] Hypokalemia; Acute kidney failure, unspecified (CMS/HCC V24) [...] MD LAB BLOOD ORDERABLES Final R esult [facility] [address] [place] [address], [place] [phone] * (ABNORMAL) Complete blood count (05/16/2024 6:28 AM EST) [facility] Signature WBC 4.6(L) 4.8 - 10.8 [...] LAB HEMETOLOGY METHOD 05/16/2024 11:06 AM EST [facility] LAB Blood Venous blood specimen / Unknown Venipuncture / Unknown 05/16/2024 6:28 AM EST 05/16/2024 10:29 AM EST Naif Mixon MD LAB BLOOD ORDERABLES Final R esult [facility] [address] [place] [address], documented in this encounter Visit Diagnoses Diagnosis Hypokalemia Hypopotassemia Acute kidney failure, unspecified (CMS/HCC V24) Acute kidney failure, unspecified documented in this encounter Care Teams Fuel Storage Technician Relationship Specialty Start Date End Date Naif Mixon MD [address] [place] [address] PCP - General Family Medicine 05/20/24 documented as of this encounter
--- OUTSIDE RECORDS SUMMARY | 2025-03-10 12:18 | XMS_ITS | Encounter Summary ---
Author Organization [facility] Address [address] [place] [phone] Care Team Providers Care Lease Buyer Name Role Phone Naif Mixon MD Primary Care Provider [phone] Encounter Details Date Type Department Care Team (Latest Contact Info) Description 08/27/2024 Lab Requisition [facility] - Main Lab 299 [facility] [place] [address] Naif Mixon MD [address] [place] [address] Schizophrenia, unspecified ([facility] V24, CMS/[facility] V28); Other schizoaffective disorders (CMS/HCC V24, CMS/HCC [...] moderate documented in this encounter Care Teams Lease Buyer Relationship Specialty Start Date End Date Naif Mixon MD [address] [place] [address] PCP - General Family Medicine 05/20/24 documented as of this encounter
--- OUTSIDE RECORDS SUMMARY | 2025-03-10 12:18 | XMS_ITS | Encounter Summary ---
Author Organization [facility] Address [address] [place] [phone] Care Team Providers Care Bootmaker Name Role Phone Naif Mixon MD Primary Care Provider [phone] Encounter Details Date Type Department Care Team (Latest Contact Info) Description 09/03/2024 Lab Requisition [facility] - Main Lab 299 [facility] [email or web address] [address] Naif Mixon MD [address] [place] [address] Schizophrenia, unspecified (CMS/HCC V24, CMS/HCC V28); Other [...] mmol/L LAB CHEMISTRY METHOD 09/05/2024 12:21 PM [facility] Potassium 3.9 3.5 - 5.5 mmol/L LAB CHEMISTRY METHOD 09/05/2024 12:21 PM [facility] Chloride 108 96 - 110 mmol/L LAB CHEMISTRY METHOD 09/05/2024 12:21 PM [facility] CO2 26 21 - 32 mmol/L LAB CHEMISTRY METHOD 09/05/2024 12:21 PM [facility] Anion Gap 9 3 - 11 LAB CHEMISTRY METHOD 09/05/2024 12:21 PM [facility] Glucose 105(H) 70 - 100 mg/dL LAB CHEMISTRY METHOD 09/05/2024 12:21 PM [facility] BUN 24 5 - 25 mg/dL LAB CHEMISTRY METHOD 09/05/2024 12:21 PM [facility] Creatinine 0.78 0.50 - 1.10 mg/dL LAB CHEMISTRY METHOD 09/05/2024 12:21 PM [facility] eGFR 87 >=60 mL/min/1. 73m2 LAB CHEMISTRY METHOD 09/05/2024 12:21 PM [facility] Comment:Calculation based on the Chronic Kidney Disease Epidemiology Collaboration (CKD-EPI) equation refit without adjustment for race. BUN/Creatinine Ratio 30.8 LAB CHEMISTRY METHOD 09/05/2024 12:21 PM [facility] Calcium 9.8 8.5 - 10.5 mg/dL LAB CHEMISTRY METHOD 09/05/2024 12:21 PM [facility] Blood Venous blood specimen / Unknown Venipuncture / Unknown 09/05/2024 5:44 AM EDT 09/05/2024 10:54 AM EDT us Naif Mixon MD LAB BLOOD ORDERABLES Final R esult [facility] [address] [place] [address], [place] [phone] * (ABNORMAL) Complete blood count (09/05/2024 5:44 AM EDT) WBC 3.9(L) 4.8 - 10.8 K/mcL LAB HEMETOLOGY METHOD 09/05/2024 12:17 PM EDT [facility] RBC 3.90 3.80 - 4.80 M/mcL LAB HEMETOLOGY METHOD 09/05/2024 12:17 PM EDT [facility] Hemoglobin 12.2 11.5 - 16.0 g/dL LAB HEMETOLOGY METHOD 09/05/2024 12:17 PM EDT [facility] Hematocrit 37.1 35.0 - 47.0 % LAB HEMETOLOGY METHOD 09/05/2024 12:17 PM EDT [facility] MCV 94.9 79.0 - 98.0 FL LAB HEMETOLOGY METHOD 09/05/2024 12:17 PM EDT [facility] MCH 31.2 27.0 - 32.0 pcg LAB HEMETOLOGY METHOD 09/05/2024 12:17 PM EDT [facility] MCHC 32.9 32.0 - 37.0 g/dL LAB HEMETOLOGY METHOD 09/05/2024 12:17 PM EDT [facility] RDW 12.8 11.0 - 15.0 % LAB HEMETOLOGY METHOD 09/05/2024 12:17 PM EDT [facility] Platelets 211 130 - 400 K/mcL LAB HEMETOLOGY METHOD 09/05/2024 12:17 PM EDT [facility] MPV 9.2 7.0 - 11.0 FL LAB HEMETOLOGY METHOD 09/05/2024 12:17 PM EDT [facility] NRBC 0.0 <1.0 % LAB HEMETOLOGY METHOD 09/05/2024 12:17 PM EDT [facility] NRBC Absolute 0.00 <0.10 K/mcL LAB HEMETOLOGY METHOD 09/05/2024 12:17 PM EDT [facility] Blood Venous blood specimen / Unknown Venipuncture / Unknown 09/05/2024 5:44 AM EDT 09/05/2024 10:56 AM EDT us Naif Mixon MD LAB BLOOD ORDERABLES Final R esult [facility] [address] [place] [address], documented in this encounter Visit Diagnoses Diagnosis Schizophrenia, unspecified (CMS/HCC V24, CMS/HCC V28) Other schizoaffective disorders (CMS/HCC V24, CMS/HCC V28) Major depressive disorder, single episode, moderate (CMS/HCC V24, CMS/HCC V28) Major depressive disorder, single episode, moderate documented in this encounter Care Teams Bootmaker Relationship Specialty Start Date End Date Naif Mixon MD [address] [place] [address] PCP - General Family Medicine 05/20/24 documented as of this encounter
--- OUTSIDE RECORDS SUMMARY | 2025-03-10 12:18 | XMS_ITS | Encounter Summary ---
Author Organization [facility] Address [address] [place] [phone] Care Team Providers Care Childbirth Educator Name Role Phone Naif Mixon MD Primary Care Provider [phone] Encounter Details Date Type Department Care Team (Latest Contact Info) Description 08/06/2024 Lab Requisition [facility] - Main Lab 299 [facility] [place] [address] Naif Mixon MD [address] [place] [address] Schizophrenia, unspecified (CMS/HCC V24, CMS/HCC V28); Other [...] mmol/L LAB CHEMISTRY METHOD 08/08/2024 1:45 PM [facility] Potassium 4.3 3.5 - 5.5 mmol/L LAB CHEMISTRY METHOD 08/08/2024 1:45 PM [facility] Chloride 106 96 - 110 mmol/L LAB CHEMISTRY METHOD 08/08/2024 1:45 PM [facility] CO2 25 21 - 32 mmol/L LAB CHEMISTRY METHOD 08/08/2024 1:45 PM [facility] Anion Gap 9 3 - 11 LAB CHEMISTRY METHOD 08/08/2024 1:45 PM [facility] Glucose 125(H) 70 - 100 mg/dL LAB CHEMISTRY METHOD 08/08/2024 1:45 PM [facility] BUN 27(H) 5 - 25 mg/dL LAB CHEMISTRY METHOD 08/08/2024 1:45 PM [facility] Creatinine 0.89 0.50 - 1.10 mg/dL LAB CHEMISTRY METHOD 08/08/2024 1:45 PM [facility] LAB eGFR 74 >=60 mL/min/1. 73m2 LAB CHEMISTRY METHOD 08/08/2024 1:45 PM [facility] Comment:Calculation based on the Chronic Kidney Disease Epidemiology Collaboration (CKD-EPI) equation refit without adjustment for race. BUN/Creatinine Ratio 30.3 LAB CHEMISTRY METHOD 08/08/2024 1:45 PM [facility] Calcium 9.3 8.5 - 10.5 mg/dL LAB CHEMISTRY METHOD 08/08/2024 1:45 PM [facility] Blood Venous blood specimen / Unknown Venipuncture / Unknown 08/08/2024 9:13 AM EST 08/08/2024 11:49 AM EST us Naif Mixon MD LAB BLOOD ORDERABLES Final R esult [facility] [address] [place] [address], [place] [phone] * (ABNORMAL) Complete blood count (08/08/2024 9:13 AM EST) WBC 3.5(L) 4.8 - 10.8 K/mcL LAB HEMETOLOGY METHOD 08/08/2024 1:34 PM [facility] RBC 3.80 3.80 - 4.80 M/mcL LAB HEMETOLOGY METHOD 08/08/2024 1:34 PM [facility] Hemoglobin 11.6 11.5 - 16.0 g/dL LAB HEMETOLOGY METHOD 08/08/2024 1:34 PM [facility] LAB Hematocrit 36.1 35.0 - 47.0 % LAB HEMETOLOGY METHOD 08/08/2024 1:34 PM [facility] MCV 96.3 79.0 - 98.0 FL LAB HEMETOLOGY METHOD 08/08/2024 1:34 PM [facility] MCH 30.9 27.0 - 32.0 pcg LAB HEMETOLOGY METHOD 08/08/2024 1:34 PM [facility] LAB MCHC 32.1 32.0 - 37.0 g/dL LAB HEMETOLOGY METHOD 08/08/2024 1:34 PM [facility] RDW 13.5 11.0 - 15.0 % LAB HEMETOLOGY METHOD 08/08/2024 1:34 PM [facility] Platelets 191 130 - 400 K/mcL LAB HEMETOLOGY METHOD 08/08/2024 1:34 PM [facility] MPV 9.6 7.0 - 11.0 FL LAB HEMETOLOGY METHOD 08/08/2024 1:34 PM EST [facility] NRBC 0.0 <1.0 % LAB HEMETOLOGY METHOD 08/08/2024 1:34 PM EST [facility] NRBC Absolute 0.00 <0.10 K/mcL LAB HEMETOLOGY METHOD 08/08/2024 1:34 PM EST [facility] Blood Venous blood specimen / Unknown Venipuncture / Unknown 08/08/2024 9:13 AM EST 08/08/2024 11:46 AM EST us Naif Mixon MD LAB BLOOD ORDERABLES Final R esult [facility] [address] [place] [address], documented in this encounter Visit Diagnoses Diagnosis Schizophrenia, unspecified (CMS/HCC V24, CMS/HCC V28) Other schizoaffective disorders (CMS/HCC V24, CMS/HCC V28) Major depressive disorder, single episode, moderate (CMS/HCC V24, CMS/HCC V28) Major depressive disorder, single episode, moderate documented in this encounter Care Teams Childbirth Educator Relationship Specialty Start Date End Date Naif Mixon MD [address] [place] [address] PCP - General Family Medicine 05/20/24 documented as of this encounter
--- OUTSIDE RECORDS SUMMARY | 2025-03-10 12:18 | XMS_ITS | Encounter Summary ---
Author Organization [facility] Address [address] [place] [phone] Care Team Providers Care Pickup Driver Name Role Phone Naif Mixon MD Primary Care Provider [phone] Encounter Details Date Type Department Care Team (Late st Contact Info) Description 06/24/2024 Lab Requisition [facility] - Main Lab [address] [address] Naif Mixon MD [address] [place] [address] Major depressive disorder, single episode, moderate (CMS/HCC [...] mmol/L LAB CHEMISTRY METHOD 06/27/2024 11:47 AM [facility] Potassium 4.2 3.5 - 5.5 mmol/L LAB CHEMISTRY METHOD 06/27/2024 11:47 AM [facility] Chloride 110 96 - 110 mmol/L LAB CHEMISTRY METHOD 06/27/2024 11:47 AM [facility] CO2 26 21 - 32 mmol/L LAB CHEMISTRY METHOD 06/27/2024 11:47 AM [facility] Anion Gap 5 3 - 11 LAB CHEMISTRY METHOD 06/27/2024 11:47 AM [facility] Glucose 100 70 - 100 mg/dL LAB CHEMISTRY METHOD 06/27/2024 11:47 AM [facility] BUN 23 5 - 25 mg/dL LAB CHEMISTRY METHOD 06/27/2024 11:47 AM [facility] Creatinine 0.86 0.50 - 1.10 mg/dL LAB CHEMISTRY METHOD 06/27/2024 11:47 AM [facility] eGFR 77 >=60 mL/min/1. 73m2 LAB CHEMISTRY METHOD 06/27/2024 11:47 AM [facility] Comment:Calculation based on the Chronic Kidney Disease Epidemiology Collaboration (CKD-EPI) equation refit without adjustment for race. BUN/Creatinine Ratio 26.7 LAB CHEMISTRY METHOD 06/27/2024 11:47 AM [facility] Calcium 8.6 8.5 - 10.5 mg/dL LAB CHEMISTRY METHOD 06/27/2024 11:47 AM [facility] Blood Venous blood specimen / Unknown Venipuncture / Unknown 06/27/2024 7:51 AM EST 06/27/2024 9:53 AM EST Naif Mixon MD LAB BLOOD ORDERABLES Final R esult [facility] [address] [place] [address], * (ABNORMAL) Complete blood count (06/27/2024 7:51 AM EST) WBC 4.6(L) 4.8 - 10.8 K/mcL LAB HEMETOLOGY METHOD 06/27/2024 11:03 AM [facility] RBC 3.60(L) 3.80 - 4.80 M/mcL LAB HEMETOLOGY METHOD 06/27/2024 11:03 AM [facility] Hemoglobin 10.8(L) 11.5 - 16.0 g/dL LAB HEMETOLOGY METHOD 06/27/2024 11:03 AM [facility] Hematocrit 34.1(L) 35.0 - 47.0 % LAB HEMETOLOGY METHOD 06/27/2024 11:03 AM [facility] MCV 95.8 79.0 - 98.0 FL LAB HEMETOLOGY METHOD 06/27/2024 11:03 AM [facility] MCH 30.3 27.0 - 32.0 pcg LAB HEMETOLOGY METHOD 06/27/2024 11:03 AM [facility] MCHC 31.7(L) 32.0 - 37.0 g/dL LAB HEMETOLOGY METHOD 06/27/2024 11:03 AM [facility] RDW 15.1(H) 11.0 - 15.0 % LAB HEMETOLOGY METHOD 06/27/2024 11:03 AM [facility] Platelets 226 130 - 400 K/mcL LAB HEMETOLOGY METHOD 06/27/2024 11:03 AM [facility] MPV 9.8 7.0 - 11.0 FL LAB HEMETOLOGY METHOD 06/27/2024 11:03 AM EST [facility] NRBC 0.0 <1.0 % LAB HEMETOLOGY METHOD 06/27/2024 11:[address] [facility] NRBC Absolute 0.00 <0.10 K/mcL LAB HEMETOLOGY METHOD 06/27/2024 11:[address] [facility] Blood Venous blood specimen / Unknown Venipuncture / Unknown 06/27/2024 7:51 AM EST 06/27/2024 9:53 AM EST us Naif Mixon MD LAB BLOOD ORDERABLES Final R esult [facility] [address] [place] [address], documented in this encounter Visit Diagnoses Diagnosis Major depressive disorder, single episode, moderate (CMS/HCC V24, CMS/HCC V28) Major depressive disorder, single episode, moderate Schizophrenia, unspecified (CMS/HCC V24, CMS/HCC V28) documented in this encounter Care Teams Pickup Driver Relationship Specialty Start Date End Date Naif Mixon MD [address] [place] [address] PCP - General Family Medicine 05/20/24 documented as of this encounter
--- OUTSIDE RECORDS SUMMARY | 2025-03-10 12:18 | XMS_ITS | Encounter Summary ---
Author Organization [facility] Address [address] [place] [phone] Care Team Providers Care Manager Relationship Name Role Phone Naif Mixon MD Primary Care Provider [phone] Encounter Details Date Type Department Care Team (Latest Contact Info) Description 09/23/2024 Lab Requisition [facility] - Main Lab 299 [facility] [place] [address] Naif Mixon MD [address] [place] [address] Schizophrenia, unspecified (CMS/HCC V24, CMS/HCC V28); Other [...] Routine 09/26/2024 7:12 AM EDT Schizophrenia, unspecified ([facility] V24, [facility] V28) Other schizoaffective disorders ([place] V24, [place] V28) Major depressive disorder, single episode, moderate ([facility] V24, [place] V28) documented in this encounter Results * (ABNORMAL) Basic metabolic panel (09/26/2024 7:12 AM EDT) Sodium 143 133 - 145 mmol/L LAB CHEMISTRY METHOD 09/26/2024 12:20 PM [facility] Potassium 4.2 3.5 - 5.5 mmol/L LAB CHEMISTRY METHOD 09/26/2024 12:20 PM [facility] Chloride 111(H) 96 - 110 mmol/L LAB CHEMISTRY METHOD 09/26/2024 12:20 PM [facility] CO2 24 21 - 32 mmol/L LAB CHEMISTRY METHOD 09/26/2024 12:20 PM [facility] Anion Gap 8 3 - 11 LAB CHEMISTRY METHOD 09/26/2024 12:20 PM [facility] Glucose 107(H) 70 - 100 mg/dL LAB CHEMISTRY METHOD 09/26/2024 12:20 PM [facility] BUN 22 5 - 25 mg/dL LAB CHEMISTRY METHOD 09/26/2024 12:20 PM [facility] Creatinine 0.77 0.50 - 1.10 mg/dL LAB CHEMISTRY METHOD 09/26/2024 12:20 PM [facility] eGFR 88 >=60 mL/min/1. 73m2 LAB CHEMISTRY METHOD 09/26/2024 12:20 PM [facility] Comment:Calculation based on the Chronic Kidney Disease Epidemiology Collaboration (CKD-EPI) equation refit without adjustment for race. BUN/Creatinine Ratio 28.6 LAB CHEMISTRY METHOD 09/26/2024 12:20 PM [facility] Calcium 9.3 8.5 - 10.5 mg/dL LAB CHEMISTRY METHOD 09/26/2024 12:20 PM EDT [facility] Blood Venous blood specimen / Unknown Venipuncture / Unknown 09/26/2024 7:12 AM EDT 09/26/2024 10:03 AM EDT Naif Mixon MD LAB BLOOD ORDERABLES Final R esult [facility] [address] [place] [address], * (ABNORMAL) Complete blood count (09/26/2024 7:12 AM EDT) WBC 3.4(L) 4.8 - 10.8 K/mcL LAB HEMETOLOGY METHOD 09/26/2024 10:50 AM [facility] RBC 3.60(L) 3.80 - 4.80 M/mcL LAB HEMETOLOGY METHOD 09/26/2024 10:50 AM [facility] Hemoglobin 11.5 11.5 - 16.0 g/dL LAB HEMETOLOGY METHOD 09/26/2024 10:50 AM [facility] Hematocrit 34.4(L) 35.0 - 47.0 % LAB HEMETOLOGY METHOD 09/26/2024 10:50 AM [facility] MCV 95.8 79.0 - 98.0 FL LAB HEMETOLOGY METHOD 09/26/2024 10:50 AM [facility] MCH 32.0 27.0 - 32.0 pcg LAB HEMETOLOGY METHOD 09/26/2024 10:50 AM [facility] MCHC 33.4 32.0 - 37.0 g/dL LAB HEMETOLOGY METHOD 09/26/2024 10:50 AM [facility] RDW 13.1 11.0 - 15.0 % LAB HEMETOLOGY METHOD 09/26/2024 10:50 AM EDT [facility] Platelets 174 130 - 400 K/mcL LAB HEMETOLOGY METHOD 09/26/2024 10:50 AM EDT [facility] MPV 9.3 7.0 - 11.0 FL LAB HEMETOLOGY METHOD 09/26/2024 10:50 AM EDT [facility] NRBC 0.0 <1.0 % LAB HEMETOLOGY METHOD 09/26/2024 10:50 AM EDT [facility] NRBC Absolute 0.00 <0.10 K/mcL LAB HEMETOLOGY METHOD 09/26/2024 10:50 AM EDT [facility] Blood Venous blood specimen / Unknown Venipuncture / Unknown 09/26/2024 7:12 AM EDT 09/26/2024 10:03 AM EDT us Naif Mixon MD LAB BLOOD ORDERABLES Final R esult [facility] [address] [place] [address], documented in this encounter Visit Diagnoses Diagnosis Schizophrenia, unspecified ([facility] V24, [facility] V28) Other schizoaffective disorders ([facility] V24, [facility] V28) Major depressive disorder, single episode, moderate ([facility] V24, [facility] V28) Major depressive disorder, single episode, moderate documented in this encounter Care Teams Manager Relationship Relationship Specialty Start Date End Date Naif Mixon MD [address] [place] [address] PCP - General Family Medicine 05/20/24 documented as of this encounter
--- OUTSIDE RECORDS SUMMARY | 2025-03-10 12:18 | XMS_ITS | Encounter Summary ---
Author Organization [facility] Address [address] [place] [phone] Care Team Providers Care Cat Operator Name Role Phone Naif Mixon MD Primary Care Provider [phone] Encounter Details Date Type Department Care Team (Late st Contact Info) Description 07/09/2024 Lab Requisition [facility] - Main Lab 299 [facility] [place] [address] Naif Mixon MD [address] [place] [address] Major depressive disorder, single episode, moderate (CMS/HCC [...] mmol/L LAB CHEMISTRY METHOD 07/11/2024 2:19 PM [facility] Potassium 4.2 3.5 - 5.5 mmol/L LAB CHEMISTRY METHOD 07/11/2024 2:19 PM [facility] Chloride 104 96 - 110 mmol/L LAB CHEMISTRY METHOD 07/11/2024 2:19 PM [facility] CO2 27 21 - 32 mmol/L LAB CHEMISTRY METHOD 07/11/2024 2:19 PM [facility] Anion Gap 7 3 - 11 LAB CHEMISTRY METHOD 07/11/2024 2:19 PM [facility] Glucose 97 70 - 100 mg/dL LAB CHEMISTRY METHOD 07/11/2024 2:19 PM [facility] BUN 26(H) 5 - 25 mg/dL LAB CHEMISTRY METHOD 07/11/2024 2:19 PM [facility] Creatinine 0.82 0.50 - 1.10 mg/dL LAB CHEMISTRY METHOD 07/11/2024 2:19 PM [facility] eGFR 82 >=60 mL/min/1. 73m2 LAB CHEMISTRY METHOD 07/11/2024 2:19 PM [facility] Comment:Calculation based on the Chronic Kidney Disease Epidemiology Collaboration (CKD-EPI) equation refit without adjustment for race. BUN/Creatinine Ratio 31.7 LAB CHEMISTRY METHOD 07/11/2024 2:19 PM [facility] Calcium 9.9 8.5 - 10.5 mg/dL LAB CHEMISTRY METHOD 07/11/2024 2:19 PM [facility] Blood Venous blood specimen / Unknown Venipuncture / Unknown 07/11/2024 7:40 AM EST 07/11/2024 10:59 AM EST us Naif Mixon MD LAB BLOOD ORDERABLES Final R esult [facility] [address] [place] [address], * (ABNORMAL) Complete blood count (07/11/2024 7:40 AM EST) WBC 4.3(L) 4.8 - 10.8 K/mcL LAB HEMETOLOGY METHOD 07/11/2024 11:17 AM [facility] RBC 3.80 3.80 - 4.80 M/mcL LAB HEMETOLOGY METHOD 07/11/2024 11:17 AM [facility] Hemoglobin 11.7 11.5 - 16.0 g/dL LAB HEMETOLOGY METHOD 07/11/2024 11:17 AM [facility] Hematocrit 35.8 35.0 - 47.0 % LAB HEMETOLOGY METHOD 07/11/2024 11:17 AM [facility] MCV 95.0 79.0 - 98.0 FL LAB HEMETOLOGY METHOD 07/11/2024 11:17 AM [facility] MCH 31.0 27.0 - 32.0 pcg LAB HEMETOLOGY METHOD 07/11/2024 11:17 AM [facility] MCHC 32.7 32.0 - 37.0 g/dL LAB HEMETOLOGY METHOD 07/11/2024 11:17 AM [facility] RDW 14.6 11.0 - 15.0 % LAB HEMETOLOGY METHOD 07/11/2024 11:17 AM [facility] Platelets 206 130 - 400 K/mcL LAB HEMETOLOGY METHOD 07/11/2024 11:17 AM [facility] MPV 9.8 7.0 - 11.0 FL LAB HEMETOLOGY METHOD 07/11/2024 11:17 AM [facility] NRBC 0.0 <1.0 % LAB HEMETOLOGY METHOD 07/11/2024 11:17 AM EST [facility] NRBC Absolute 0.00 <0.10 K/mcL LAB HEMETOLOGY METHOD 07/11/2024 11:17 AM EST [facility] Blood Venous blood specimen / Unknown Venipuncture / Unknown 07/11/2024 7:40 AM EST 07/11/2024 10:59 AM EST us Naif Mixon MD LAB BLOOD ORDERABLES Final R esult [facility] [address] [place] [address], documented in this encounter Visit Diagnoses Diagnosis Major depressive disorder, single episode, moderate (CMS/HCC V24, CMS/HCC V28) Major depressive disorder, single episode, moderate Schizophrenia, unspecified (CMS/HCC V24, CMS/HCC V28) documented in this encounter Care Teams Cat Operator Relationship Specialty Start Date End Date Naif Mixon MD [address] [place] [address] PCP - General Family Medicine 05/20/24 documented as of this encounter
--- OUTSIDE RECORDS SUMMARY | 2025-03-10 12:18 | XMS_ITS | Encounter Summary ---
Author Organization [facility] Address [address] [place] [phone] Care Team Providers Care Agency Sales Director Name Role Phone Naif Mixon MD Primary Care Provider [phone] Encounter Details Date Type Department Care Team (Late st Contact Info) Description 09/30/2024 Lab Requisition [facility] - Main Lab [address] [facility] [place] [address] Naif Mixon MD [address] [place] [address] Schizophrenia, unspecified (CMS/HCC V24, CMS/HCC V28); Major [...] esult [facility] [address] [place] [address], [place] [phone] * (ABNORMAL) Complete blood count (10/03/2024 7:17 AM EDT) WBC 3.8(L) 4.8 - 10.8 K/mcL LAB HEMETOLOGY METHOD 10/03/2024 11:20 AM EDT [facility] RBC 3.90 3.80 - 4.80 M/mcL LAB HEMETOLOGY METHOD 10/03/2024 11:20 AM EDT [facility] Hemoglobin 12.5 11.5 - 16.0 g/dL LAB HEMETOLOGY METHOD 10/03/2024 11:20 AM EDT [facility] Hematocrit 37.5 35.0 - 47.0 % LAB HEMETOLOGY METHOD 10/03/2024 11:20 AM EDT [facility] MCV 96.6 79.0 - 98.0 FL LAB HEMETOLOGY METHOD 10/03/2024 11:20 AM EDT [facility] MCH 32.2(H) 27.0 - 32.0 pcg LAB HEMETOLOGY METHOD 10/03/2024 11:20 AM EDT [facility] MCHC 33.3 32.0 - 37.0 g/dL LAB HEMETOLOGY METHOD 10/03/2024 11:20 AM EDT [facility] RDW 12.9 11.0 - 15.0 % LAB [facility]EMETOLOGY [facility] 196 130 - 400 K/mcL LAB HEMETOLOGY METHOD 10/03/2024 11:20 AM EDT [facility] MPV 9.1 7.0 - 11.0 FL LAB HEMETOLOGY METHOD 10/03/2024 11:20 AM EDT [facility] NRBC 0.0 <1.0 % LAB HEMETOLOGY METHOD 10/03/2024 11:20 AM EDT [facility] NRBC Absolute 0.00 <0.10 K/mcL LAB HEMETOLOGY METHOD 10/03/2024 11:20 AM EDT [facility] Blood Venous blood specimen / Unknown Venipuncture / Unknown 10/03/2024 7:17 AM EDT 10/03/2024 10:09 AM EDT Naif Mixon MD LAB BLOOD ORDERABLES Final R esult [facility] [address] [place] [address], documented in this encounter Visit Diagnoses Diagnosis Schizophrenia, unspecified (CMS/HCC V24, CMS/HCC V28) Major depressive disorder, single episode, moderate (CMS/HCC V24, CMS/HCC V28) Major depressive disorder, single episode, moderate documented in this encounter Care Teams Agency Sales Director Relationship Specialty Start Date End Date Naif Mixon MD [address] [place] [address] PCP - General Family Medicine 05/20/24 documented as of this encounter
--- OUTSIDE RECORDS SUMMARY | 2025-03-10 12:18 | XMS_ITS | Encounter Summary ---
Author Organization [facility] Address [address] [place] [phone] Phone Care Team Providers Care Fixed Assets Accountant Name Role Phone Stacey Reis MD Primary Care Provider [phone] Waylon Crespo MD Unavailable [phone] Waylon Crespo MD Unavailable [phone] Stacey Reis MD Unavailable [phone] Romain Bolanos MOLDER MACHINE TENDER Unavailable [email or web address] Yomi Bass MD Unavailable [phone] Keny Govea MOLDER MACHINE TENDER Unavailable [phone] Unknown, Unknown Primary Care Provider Yomi Gray MD Unavailable [phone] Alba Harmon MD Unavailable [phone] Pcp, Unknown Primary Care Provider Unavailabl e Encounter Details Date Type Department Care Team (Late st Contact Info) Description 11/07/2021 Telephone [facility] Center [address] [place], [place] [phone] Stacey Reis MD [address] [place] [address] [place] [phone] [email or web address] Social History Tobacco Use Types Packs/Day Years [...] high school, GED, job training, learning the [place] language, technical skills, or developing parenting skills)? [...] EST [facility] [address] [place] [address] documented as of this encounter Goals Goal Patient Goal Type Associated Problems Recent Progress Patient-Stated? Author Develop a trusting relationship with Care Management Program Care Plan Chronic Condition Self-Management No Beryl Shirley LICSW documented as of this encounter Visit Diagnoses Not on filedocumented in this encounter Additional Health Concerns Active Problems Noted Date Diagnosed Date Chronic Condition Self-Management 02/08/2020 Assessment Noted Time PHQ-2 Depression Total Score: 1 04/24/20 21 1:29 PM EST documented as of this encounter Care Teams Fixed Assets Accountant Relationship Specialty Start Date End Date Stacey Reis MD [email or web address] PCP - General 03/11/14 02/16/22 Waylon Crespo MD 55 [facility] [address] [place] [address] [email or web address] PCP - Resident PCP 11/30/1811/29 Yomi Bass MD [address] [place] [address] [address] [place] [address] [email or web address] PCP - Resident PCP 11/30/21 02/16/22 Unknown, German, PCP - General 03/03/22 11/16/23 Pcp, Unknown PCP - General 11/17/23 Waylon Crespo MD 55 [facility] [address] [place] [address] [email or web address] Attributed Provider 01/08/19 07/12/22 Stacey Reis MD 55 [facility] [address] [place] [address] [email or web address] Insurance Assigned Provider 09/14/1909/13/22 Romain Bolanos LICSW 55 [facility] [address] [place] [address] [email or web address] Social Work 07/19/21 Keny Govea, MOLDER MACHINE TENDER [address] [place] [address] [email or web address] Social Work 01/03/22 Yomi Bass MD 15 [facility] [address] [place] [address] [email or web address] Partners Attributed Provider 07/12/22 06/13/23 Alba Harmon MD 50 [facility], 10th Floor, [address] [place] [address] [address] [place] [address] [email or web address] Insurance Assigned Provider 09/13/22 documented as of this encounter Additional Source Comments The information contained in this document represents components of the legal health record. It is not the complete legal health record.[facility]
--- OUTSIDE RECORDS SUMMARY | 2025-03-10 12:18 | XMS_ITS | Encounter Summary ---
Author Organization [facility] Address [address] [place] [phone] Care Team Providers Care Mill Dresser Name Role Phone Naif Mixon MD Primary Care Provider [phone] Encounter Details Date Type Department Care Team (Latest Contact Info) Description 08/14/2024 Lab Requisition [facility] - Main Lab [address] [facility] [place] [address] Naif Mixon MD [address] [place] [address] Schizophrenia, unspecified (CMS/HCC V24, CMS/HCC V28); Other [...] mmol/L LAB CHEMISTRY METHOD 08/15/2024 12:21 PM [facility] Potassium 4.0 3.5 - 5.5 mmol/L LAB CHEMISTRY METHOD 08/15/2024 12:21 PM [facility] Chloride 108 96 - 110 mmol/L LAB CHEMISTRY METHOD 08/15/2024 12:21 PM [facility] CO2 25 21 - 32 mmol/L LAB CHEMISTRY METHOD 08/15/2024 12:21 PM [facility] Anion Gap 11 3 - 11 LAB CHEMISTRY METHOD 08/15/2024 12:21 PM [facility] Glucose 145(H) 70 - 100 mg/dL LAB CHEMISTRY METHOD 08/15/2024 12:21 PM [facility] BUN 28(H) 5 - 25 mg/dL LAB CHEMISTRY METHOD 08/15/2024 12:21 PM [facility] Creatinine 1.00 0.50 - 1.10 mg/dL LAB CHEMISTRY METHOD 08/15/2024 12:21 PM [facility] eGFR 65 >=60 mL/min/1. 73m2 LAB CHEMISTRY METHOD 08/15/2024 12:21 PM [facility] Comment:Calculation based on the Chronic Kidney Disease Epidemiology Collaboration (CKD-EPI) equation refit without adjustment for race. BUN/Creatinine Ratio 28.0 LAB CHEMISTRY METHOD 08/15/2024 12:21 PM [facility] Calcium 9.7 8.5 - 10.5 mg/dL LAB CHEMISTRY METHOD 08/15/2024 12:21 PM [facility] Blood Venous blood specimen / Unknown Venipuncture / Unknown 08/15/2024 9:21 AM EDT 08/15/2024 11:00 AM EDT us Naif Mixon MD LAB BLOOD ORDERABLES Final R esult [facility] [address] [place] [address], * (ABNORMAL) Complete blood count (08/15/2024 9:21 AM EDT) [facility] Signature WBC 4.4(L) 4.8 - 10.8 K/mcL LAB HEMETOLOGY METHOD 08/15/2024 12:47 PM EDT [facility] RBC 4.20 3.80 - 4.80 M/mcL LAB HEMETOLOGY METHOD 08/15/2024 12:47 PM EDT [facility] Hemoglobin 13.0 11.5 - 16.0 g/dL LAB HEMETOLOGY METHOD 08/15/2024 12:47 PM EDT [facility] Hematocrit 38.7 35.0 - 47.0 % LAB HEMETOLOGY METHOD 08/15/2024 12:47 PM EDT [facility] MCV 92.6 79.0 - 98.0 FL LAB HEMETOLOGY METHOD 08/15/2024 12:47 PM EDT [facility] MCH 31.1 27.0 - 32.0 pcg LAB HEMETOLOGY METHOD 08/15/2024 12:47 PM EDT [facility] MCHC 33.6 32.0 - 37.0 g/dL LAB HEMETOLOGY METHOD 08/15/2024 12:47 PM EDT [facility] RDW 13.5 11.0 - 15.0 % LAB HEMETOLOGY METHOD 08/15/2024 12:47 PM EDT [facility] Platelets 199 130 - 400 K/mcL LAB HEMETOLOGY METHOD 08/15/2024 12:47 PM EDT [facility] MPV 9.2 7.0 - 11.0 FL LAB HEMETOLOGY METHOD 08/15/2024 12:47 PM EDT [facility] NRBC 0.0 <1.0 % LAB HEMETOLOGY METHOD 08/15/2024 12:47 PM EDT [facility] NRBC Absolute 0.00 <0.10 K/mcL LAB HEMETOLOGY METHOD 08/15/2024 12:47 PM EDT [facility] Blood Venous blood specimen / Unknown Venipuncture / Unknown 08/15/2024 9:21 AM EDT 08/15/2024 11:00 AM EDT us Naif Mixon MD LAB BLOOD ORDERABLES Final R esult [facility] [address] [place] [address], documented in this encounter Visit Diagnoses Diagnosis Schizophrenia, unspecified (CMS/HCC V24, CMS/HCC V28) Other schizoaffective disorders (CMS/HCC V24, CMS/HCC V28) Major depressive disorder, single episode, moderate (CMS/HCC V24, CMS/HCC V28) Major depressive disorder, single episode, moderate documented in this encounter Care Teams Mill Dresser Relationship Specialty Start Date End Date Naif Mixon MD [address] [place] [address] PCP - General Family Medicine 05/20/24 documented as of this encounter
--- OUTSIDE RECORDS SUMMARY | 2025-03-10 12:18 | XMS_ITS | Encounter Summary ---
Author Organization [facility] Address [address] [place] [address] Care Team Providers Care Yarn Tester Name Role Phone Naif Mixon MD Primary Care Provider [phone] Encounter Details Date Type Department Care Team (Late st Contact Info) Description 09/09/2024 Lab Requisition [facility] - Main Lab 299 [facility] [place] [address] Naif Mixon MD [address] [place] [address] Schizophrenia, unspecified (CMS/HCC V24, CMS/HCC V28); Major [...] mmol/L LAB CHEMISTRY METHOD 09/12/2024 2:43 PM [facility] Potassium 3.9 3.5 - 5.5 mmol/L LAB CHEMISTRY METHOD 09/12/2024 2:43 PM [facility] Chloride 105 96 - 110 mmol/L LAB CHEMISTRY METHOD 09/12/2024 2:43 PM [facility] CO2 23 21 - 32 mmol/L LAB CHEMISTRY METHOD 09/12/2024 2:43 PM [facility] Anion Gap 12(H) 3 - 11 LAB CHEMISTRY METHOD 09/12/2024 2:43 PM [facility] Glucose 156(H) 70 - 100 mg/dL LAB CHEMISTRY METHOD 09/12/2024 2:43 PM [facility] BUN 26(H) 5 - 25 mg/dL LAB CHEMISTRY METHOD 09/12/2024 2:43 PM [facility] Creatinine 0.97 0.50 - 1.10 mg/dL LAB CHEMISTRY METHOD 09/12/2024 2:43 PM [facility] eGFR 67 >=60 mL/min/1. 73m2 LAB CHEMISTRY METHOD 09/12/2024 2:43 PM [facility] Comment:Calculation based on the Chronic Kidney Disease Epidemiology Collaboration (CKD-EPI) equation refit without adjustment for race. BUN/Creatinine Ratio 26.8 LAB CHEMISTRY METHOD 09/12/2024 2:43 PM [facility] Calcium 9.8 8.5 - 10.5 mg/dL LAB CHEMISTRY METHOD 09/12/2024 2:43 PM [facility] Blood Venous blood specimen / Unknown Venipuncture / Unknown 09/12/2024 9:30 AM EDT 09/12/2024 11:10 AM EDT Naif Mixon MD LAB BLOOD ORDERABLES Final R esult [facility] [address] [place] [address], * (ABNORMAL) Complete blood count (09/12/2024 9:30 AM EDT) WBC 4.5(L) 4.8 - 10.8 K/mcL LAB HEMETOLOGY METHOD 09/12/2024 11:29 AM EDT [facility] RBC 3.90 3.80 - 4.80 M/mcL LAB HEMETOLOGY METHOD 09/12/2024 11:29 AM EDT [facility] Hemoglobin 12.6 11.5 - 16.0 g/dL LAB HEMETOLOGY METHOD 09/12/2024 11:29 AM [facility] Hematocrit 37.0 35.0 - 47.0 % LAB HEMETOLOGY METHOD [facility]24 [facility] MCV 94.1 79.0 - 98.0 FL LAB HEMETOLOGY METHOD 09/12/2024 11:29 AM [facility] MCH 32.1(H) 27.0 - 32.0 pcg LAB HEMETOLOGY METHOD 09/12/2024 11:29 AM [facility] MCHC 34.1 32.0 - 37.0 g/dL LAB HEMETOLOGY METHOD 09/12/2024 11:29 AM EDT [facility] RDW 12.8 11.0 - 15.0 % LAB HEMETOLOGY METHOD 09/12[facility]24 [facility] Platelets 190 130 - 400 K/mcL LAB HEMETOLOGY METHOD 09/12/2024 11[facility] MPV 9.2 7.0 - 11.0 FL LAB HEMETOLOGY METHOD 09/12/2024 11:29 AM EDT [facility] NRBC 0.0 <1.0 % LAB HEMETOLOGY METHOD 09/12/2024 11:29 AM EDT [facility] NRBC Absolute 0.00 <0.10 K/mcL LAB HEMETOLOGY METHOD 09/12/2024 11:29 AM EDT [facility] Blood Venous blood specimen / Unknown Venipuncture / Unknown 09/12/2024 9:30 AM EDT 09/12/2024 11:10 AM EDT us Naif Mixon MD LAB BLOOD ORDERABLES Final R esult [facility] [address] [place] [address], documented in this encounter Visit Diagnoses Diagnosis Schizophrenia, unspecified (CMS/HCC V24, CMS/HCC V28) Major depressive disorder, single episode, moderate (CMS/HCC V24, CMS/HCC V28) Major depressive disorder, single episode, moderate documented in this encounter Care Teams Yarn Tester Relationship Specialty Start Date End Date Naif Mixon MD [address] [place] [address] PCP - General Family Medicine 05/20/24 documented as of this encounter
--- OUTSIDE RECORDS SUMMARY | 2025-03-10 12:18 | XMS_ITS | Encounter Summary ---
Author Organization [facility] Address [address] [place] [address] Care Team Providers Care Training Development Manager Name Role Phone Naif Mixon MD Primary Care Provider [phone] Encounter Details Date Type Department Care Team (Late st Contact Info) Description 04/15/2024 Lab Requisition [facility] - Main Lab 299 [facility] [place] [address] Naif Mixon MD [address] [place] [address] Hypokalemia; Acute kidney failure, unspecified (CMS/HCC V24) [...] mmol/L LAB CHEMISTRY METHOD 04/18/2024 11:58 AM [facility] Potassium 3.8 3.5 - 5.5 mmol/L LAB CHEMISTRY METHOD 04/18/2024 11:58 AM [facility] Chloride 107 96 - 110 mmol/L LAB CHEMISTRY METHOD 04/18/2024 11:58 AM [facility] CO2 25 21 - 32 mmol/L LAB CHEMISTRY METHOD 04/18/2024 11:58 AM [facility] Anion Gap 9 3 - 11 LAB CHEMISTRY METHOD 04/18/2024 11:58 AM [facility] Glucose 72 70 - 100 mg/dL LAB CHEMISTRY METHOD 04/18/2024 11:58 AM [facility] BUN 12 5 - 25 mg/dL LAB CHEMISTRY METHOD 04/18/2024 11:58 AM [facility] Creatinine 0.58 0.50 - 1.10 mg/dL LAB CHEMISTRY METHOD 04/18/2024 11:58 AM [facility] eGFR 104 >=60 mL/min/1. 73m2 LAB CHEMISTRY METHOD 04/18/2024 11:58 AM [facility] Comment:Calculation based on the Chronic Kidney Disease Epidemiology Collaboration (CKD-EPI) equation refit without adjustment for race. BUN/Creatinine Ratio 20.7 LAB CHEMISTRY METHOD 04/18/2024 11:58 AM [facility] Calcium 8.5 8.5 - 10.5 mg/dL LAB CHEMISTRY METHOD 04/18/2024 11:58 AM [facility] Blood Venous blood specimen / Unknown Venipuncture / Unknown 04/18/2024 8:00 AM EST 04/18/2024 10:53 AM EST us Naif Mixon MD LAB BLOOD ORDERABLES Final R esult [facility] [address] [place], [place] [address] [phone] * (ABNORMAL) Complete blood count (04/18/2024 8:00 AM EST) [facility] WBC 5.6 4.8 - 10.8 K/mcL LAB HEMETOLOGY METHOD 04/18/2024 11:27 AM [facility] RBC 3.00(L) 3.80 - 4.80 M/mcL LAB HEMETOLOGY METHOD 04/18/2024 11:27 AM [facility] Hemoglobin 8.4(L) 11.5 - 16.0 g/dL LAB HEMETOLOGY METHOD 04/18/2024 11:27 AM [facility] Hematocrit 27.2(L) 35.0 - 47.0 % LAB HEMETOLOGY METHOD 04/18/2024 11:27 AM [facility] MCV 91.9 79.0 - 98.0 FL LAB HEMETOLOGY METHOD 04/18/2024 11:27 AM [facility] MCH 28.4 27.0 - 32.0 pcg LAB HEMETOLOGY METHOD 04/18/2024 11:27 AM [facility] MCHC 30.9(L) 32.0 - 37.0 g/dL LAB HEMETOLOGY METHOD 04/18/2024 11:27 AM [facility] RDW 16.1(H) 11.0 - 15.0 % LAB HEMETOLOGY METHOD 04/18/2024 11:27 AM [facility] Platelets 331 130 - 400 K/mcL LAB HEMETOLOGY METHOD 04/18/2024 11:27 AM [facility] MPV 9.5 7.0 - 11.0 FL LAB HEMETOLOGY METHOD 04/18/2024 11:27 AM [facility] NRBC 0.0 <1.0 % LAB HEMETOLOGY METHOD 04/18/2024 11:27 AM EST [facility] NRBC Absolute 0.00 <0.10 K/mcL LAB HEMETOLOGY METHOD 04/18/2024 11:27 AM EST [facility] Blood Venous blood specimen / Unknown Venipuncture / Unknown 04/18/2024 8:00 AM EST 04/18/2024 10:53 AM EST us Naif Mixon MD LAB BLOOD ORDERABLES Final R esult [facility] [address] [place] [address], documented in this encounter Visit Diagnoses Diagnosis Hypokalemia Hypopotassemia Acute kidney failure, unspecified (CMS/HCC V24) Acute kidney failure, unspecified documented in this encounter Care Teams Training Development Manager Relationship Specialty Start Date End Date Naif Mixon MD [address] [place] [address] PCP - General Family Medicine 05/20/24 documented as of this encounter
--- OUTSIDE RECORDS SUMMARY | 2025-03-10 12:18 | XMS_ITS | Encounter Summary ---
Author Organization [facility] Address [address] [place] [address] Care Team Providers Care Buffer Chrome Name Role Phone Naif Mixon MD Primary Care Provider [phone] Encounter Details Date Type Department Care Team (Late st Contact Info) Description 05/20/2024 Lab Requisition [facility] - Main Lab [address] [facility] [place] [address] Naif Mixon MD [address] [place] [address] Hypokalemia; Acute kidney failure, unspecified (CMS/HCC V24) [...] unspecified documented in this encounter Care Teams Buffer Chrome Relationship Specialty Start Date End Date Naif Mixon MD [address] [place] [address] PCP - General Family Medicine 05/20/24 documented as of this encounter
--- OUTSIDE RECORDS SUMMARY | 2025-03-10 12:19 | XMS_ITS | Encounter Summary ---
Author Organization [facility] Address [address] [place] [address] [address] [place] [address] Phone Care Team Providers Care Surgical Dental Assistant Name Role Phone Stacey Reis MD Primary Care Provider + [phone] Waylon Crespo MD Unavailable [phone] Waylon Crespo MD Unavailable [phone] Stacey Reis MD Unavailable [phone] Beryl Shirley DIRECTOR [employer]PPL[employer]ALITY Unavailable [phone] Kaleigh Adams DIRECTOR SUPPLIER QUALITY Unavailable [phone] GustavoCatrina Nelson DIRECTOR SUPPLIER QUALITY Unavailable + [phone] Romain Bolanos DIRECTOR SUPPLIER QUALITY Unavailable MARLENE [email or web address] Yomi Bass MD Unavailable [phone] Keny Govea DIRECTOR SUPPLIER QUALITY Unavailable [phone] Unknown, Unknown Primary Care Provider Yomi Gray MD Unavailable [phone] Alba Harmon MD Unavailable [phone] Pcp, Unknown Primary Care Provider Unavailabl e Encounter Details Date Type Department Care Team (Late st Contact Info) Description 05/23/2020 Procedure Pass [facility] [place] [address] [facility], 2nd Floor, [address] [place] [address] Social History Tobacco Use Types Packs/Day Years [...] EST [facility] [address] 1[address] [place] [address] documented as of this encounter Goals Goal [...] documented as of this encounter Care Teams Surgical Dental Assistant Relationship Specialty Start Date End Date Stacey Reis MD [email or web address] PCP - General 03/11/14 02/16/22 Waylon Crespo MD [address] [place] [address] [phone] [place] [address] [email or web address] PCP - Resident PCP 11/30/1811/29 Yomi Bass MD 15 [facility] 730 [place] [address] [email or web address] PCP - Resident PCP 11/30/21 02/16/22 German Porter MD PCP - General 03/03/22 11/16/23 Pcp, Unknown PCP - General 11/17/23 Waylon Crespo MD 55 [facility] [address] [place] [address] [email or web address] Partners Attributed Provider 01/08/19 07/12/22 Stacey Reis MD 55 [facility] [address] [place] [address] [email or web address] Insurance Assigned Provider 09/14/1909/13/22 Beryl Shirley, [address] [address] [email or web address] Social Work 01/24/20 07/16/20 Kaleigh Adams [facility] [address] [place] [phone] [email or web address] Director Of Assessing 06/06/20 07/31/20 Catrina Lee [facility] [address] [place] [phone] [email or web address] Social Work 07/17/20 07/18/21 Romain Bolanos, [address] [address] [email or web address] Social Work 07/19/21 Keny Govea, [facility] [address] [place] [address] [email or web address] Social Work 01/03/22 Yomi Bass MD [address] [place] [address] [address] [place] [address] [email or web address] Partners Attributed Provider 07/12/22 06/13/23 Alba Harmon MD [address] [place] [address], [address] [facility], [address] [place] [address] [address] [place] [address] [email or web address] Insurance Assigned Provider 09/13/22 documented as of this encounter Additional Source Comments The information contained in this document represents components of the legal health record. It is not the complete legal health record.[facility]
--- OUTSIDE RECORDS SUMMARY | 2025-03-10 12:19 | XMS_ITS | Encounter Summary ---
Author Organization [facility] Address [address] [place] [address] Care Team Providers Care Metal Trades Instructor Name Role Phone Naif Mixon MD Primary Care Provider [phone] Encounter Details Date Type Department Care Team (Late st Contact Info) Description 11/24/2024 Lab Requisition [facility] - Main Lab 299 [facility] [place] [address] Naif Mixon MD [address] [place] [address] Urinary tract infection, site not specified Social [...] reflex microscopic (11/23/2024 4:00 PM EDT) Specific [place] Urine 1.011 1.003 - 1.030 LAB URINALYSIS - AUTOMATED METHOD 11/24/2024 10:12 AM [facility] pH, Urine 6.5 5.0 - 8.0 pH LAB URINALYSIS - AUTOMATED METHOD 11/24/2024 10:12 AM [facility] Leukocytes, Urine Large(A) Negative LAB URINALYSIS - AUTOMATED METHOD 11/24/2024 10:12 AM [facility] Nitrite, Urine Negative Negative LAB URINALYSIS - AUTOMATED METHOD 11/24/2024 10:12 AM [facility] Protein, Urine 30(A) <=Trace mg/dL LAB URINALYSIS - AUTOMATED METHOD 11/24/2024 10:12 AM [facility] Glucose, Urine Negative Negative mg/dL LAB URINALYSIS - AUTOMATED METHOD 11/24/2024 10:12 AM [facility] Ketones, Urine Negative Negative mg/dL LAB URINALYSIS - AUTOMATED METHOD 11/24/2024 10:12 AM [facility] Urobilinogen , Urine 0.2 0.2 - 1.0 mg/dL LAB URINALYSIS - AUTOMATED METHOD 11/24/2024 10:12 AM [facility] Bilirubin, Urine Negative Negative LAB URINALYSIS - AUTOMATED METHOD 11/24/2024 10:12 AM [facility] Blood, Urine Small(A) Negative LAB URINALYSIS - AUTOMATED METHOD 11/24/2024 10:12 AM [facility] RBC, Urine 8.2(H) 0 - 4 /HPF LAB URINALYSIS - AUTOMATED METHOD 11/24/2024 10:12 AM [facility] WBC, Urine 282.4(H) 0 - 4 /HPF LAB URINALYSIS - AUTOMATED METHOD 11/24/2024 10:12 AM [facility] Squamous Epithelial, Urine 42 0 - 60 /LPF LAB URINALYSIS - AUTOMATED METHOD 11/24/2024 10:12 AM EDT [facility] Bacteria, Urine Moderate(A) Negative /HPF LAB URINALYSIS - AUTOMATED METHOD 11/24/2024 10:12 AM EDT [facility] Hyaline Casts, Urine 2.0 0 - 3 /LPF LAB URINALYSIS - AUTOMATED METHOD 11/24/2024 10:12 AM EDT [facility] Urine Urine specimen obtained by clean catch procedure / Unknown 11/23/2024 4:00 PM EDT 11/24/2024 9:24 AM EDT us Naif Mixon MD LAB URINE ORDERABLES Final R esult [facility] [address] [place] [address], * (ABNORMAL) Culture urine (11/23/2024 4:00 PM EDT) Culture, Urine 50,000-100,000 CFU/mL Escherichia coli(A) ANA 11/26/2024 10:13 AM EDT [facility] Comment: This is an edited result. Previous organism was Gram negative bacilli on 11/25/2024 at 0741 EDT. Urine Urine specimen obtained by clean catch procedure / Unknown 11/23/2024 4:00 PM EDT 11/24/2024 9:24 AM EDT Narrative [facility] - 11/26/2024 10:13 AM [...] O RDERABLES Final Result Performing Organization Address City/State/[facility] Co de Phone Number [facility] [address] [place] [address], documented in this encounter Visit Diagnoses Diagnosis Urinary tract infection, site not specified documented in this encounter Care Teams Metal Trades Instructor Relationship Specialty Start Date End Date Naif Mixon MD [address] [place] [address] PCP - General Family Medicine 05/20/24 documented as of this encounter
--- OUTSIDE RECORDS SUMMARY | 2025-03-10 12:19 | XMS_ITS | Encounter Summary ---
Author Organization [facility] Address [address] [place] [address] Phone Care Team Providers Care Examining Chair Assembler Name Role Phone Stacey Reis MD Primary Care Provider + [phone] Waylon Crespo MD Unavailable [phone] Waylon Crespo MD Unavailable [phone] Stacey Reis MD Unavailable [phone] Beryl Shirley [employer] Unavailable [phone] Kaleigh Adams [employer] Unavailable [phone] Catrina Lee [employer] Unavailable + [phone] Romain Bolanos [employer]ORDING [employer] Unavailable MARLENE [email or web address] Yomi Bass MD Unavailable [phone] Keny Govea [employer]ORDING [employer] Unavailable [phone] Unknown, Unknown Primary Care Provider Yomi Gray MD Unavailable [phone] Alba Harmon MD Unavailable [phone] Pcp, Unknown Primary Care Provider Unavailabl e Encounter Details Date Type Department Care Team (Late st Contact Info) Description 05/31/2020 Procedure Pass [facility] 4 ENDO DEPT [address] [facility], 4th [place] [address] Social History Tobacco Use Types Packs/Day Years [...] EST [facility] [address] 1st [place] [address] documented as of this encounter Goals Goal [...] documented as of this encounter Care Teams Examining Chair Assembler Relationship Specialty Start Date End Date Stacey Reis MD [email or web address] PCP - General 03/11/14 02/16/22 Waylon Crespo MD 55 [facility] [address] [place] [address] [email or web address] PCP - Resident PCP 11/30/1811/29 Yomi Bass MD 15 [facility] 730 [place] [address] [email or web address] PCP - Resident PCP 11/30/21 02/16/22 German Porter MD PCP - General 03/03/22 11/16/23 Pcp, Unknown PCP - General 11/17/23 Waylon Crespo MD 55 [facility] [address] [place] [address] [email or web address] Partners Attributed Provider 01/08/19 07/12/22 Stacey Reis MD 55 [facility] [address] [place] [address] [email or web address] Insurance Assigned Provider 09/14/1909/13/22 Beryl Shirley, [address] [address] [email or web address] Social Work 01/24/20 07/16/20 Kaleigh Adams [facility] [address] [place] [phone] [email or web address] Chemical Processor 06/06/20 07/31/20 GustavoCatrina Nelson [facility] [address] [place] [phone] [email or web address] Social Work 07/17/20 07/18/21 Romain Bolanos, [address] [address] [email or web address] Work 07/19/21 Keny Govea, [facility] [address] [place] [address] [email or web address] Work 01/03/22 Yomi Bass MD [address] [place] [address] 7[address] [place] [address] [email or web address] Partners Attributed Provider 07/12/22 06/13/23 Alba Harmon MD [address] [place] [address], 10th Floor, [address] [place] [address] [address] [place] [address] [email or web address] Insurance Assigned Provider 09/13/22 documented as of this encounter Additional Source Comments The information contained in this document represents components of the legal health record. It is not the complete legal health record.[facility]
--- OUTSIDE RECORDS SUMMARY | 2025-03-10 12:19 | XMS_ITS | Encounter Summary ---
Author Organization [facility] Address [address] [place] [phone] Care Team Providers Care License Inspector Name Role Phone Naif Mixon MD Primary Care Provider [phone] Encounter Details Date Type Department Care Team (Late st Contact Info) Description 10/22/2024 Lab Requisition [facility] - Main Lab 299 [facility] [place] [address] Naif Mixon MD [address] [place] [address] Schizophrenia, unspecified (CMS/HCC V24, CMS/HCC V28); Major [...] moderate documented in this encounter Care Teams License Inspector Relationship Specialty Start Date End Date Naif Mixon MD [address] [place] [address] PCP - General Family Medicine 05/20/24 documented as of this encounter
--- OUTSIDE RECORDS SUMMARY | 2025-03-10 12:19 | XMS_ITS | Encounter Summary ---
Author Organization [facility] Address [address] [place] [address] Phone Care Team Providers Care Facilities Manager Name Role Phone Stacey Reis MD Primary Care Provider + [phone] Waylon Crespo MD Unavailable [phone] Waylon Crespo MD Unavailable [phone] Stacey Reis MD Unavailable [phone] Beryl Shirley SALES RECRUITER Unavailable [phone] Kaleigh Adams SALES RECRUITER Unavailable [phone] [facility] Catrina Mcclendon SALES RECRUITER Unavailable + [phone] Romain Bolanos SALES RECRUITER Unavailable MARLENE [email or web address] Yomi Bass MD Unavailable [phone] Keny Govea SALES RECRUITER Unavailable [phone] Unknown, Unknown Primary Care Provider Yomi Gray MD Unavailable [phone] Alba Harmno MD Unavailable [phone] Pcp, Unknown Primary Care Provider Unavailabl e Encounter Details Date Type Department Care Team (Late st Contact Info) Description 07/01/2019 Telephone [facility] [address] [facility], [address] [place], [place] [id number] Stacey Reis MD [address] [place] [address] [address] [place] [address] [email or web address] Social History Tobacco Use Types Packs/Day Years [...] EST [facility] [address] 1st [place] [address] documented as of this encounter Visit Diagnoses Not on filedocumented in this encounter Additional Health Concerns Assessment Noted Time PHQ-2 Depression Total Score: 0 03/25/20 17 1:47 PM EDT documented as of this encounter Care Teams Facilities Manager Relationship Specialty Start Date End Date Stacey Reis MD [email or web address] PCP - General 03/11/14 02/16/22 Waylon Crespo MD [address] [place] [address] [address] [place] [address] [email or web address] PCP - Resident PCP 11/30/1811/29 Yomi Bass MD 15 [facility] 730 [place] [address] [email or web address] PCP - Resident PCP 11/30/21 02/16/22 Unknown, MD German PCP - General 03/03/22 11/16/23 Pcp, Unknown PCP - General 11/17/23 Waylon Crespo MD 55 [facility] 7730 [place] [address] [email or web address] Attributed Provider 01/08/19 07/12/22 Stacey Reis MD 55 [facility] 605 [place] [address] [email or web address] Insurance Assigned Provider 09/14/1909/13/22 Beryl Shirley, [facility] [address] [place] [address] [email or web address] Social Work 01/24/20 07/16/20 Kaleigh Adams [facility] [address] [place] [phone] [email or web address] Network Engineer 06/06/20 07/31/20 [facility] Catrina Mcclendon [facility] [address] [place] [phone] [email or web address] Social Work 07/17/20 07/18/21 Romain Bolanos, [facility] [address] [place] [address] [email or web address] 07/19/21 Keny Govea, [facility] [address] [place] [address] [email or web address] 01/03/22 Yomi Bass MD 15 [facility] 730 [place] [address] [email or web address] Partners Attributed Provider 07/12/22 06/13/23 Alba Harmon MD [address] [place] [address], 10th Floor, [address] [place] [address] [address] [place] [address] [email or web address] Insurance Assigned Provider 09/13/22 documented as of this encounter Additional Source Comments The information contained in this document represents components of the legal health record. It is not the complete legal health record.[facility]
--- OUTSIDE RECORDS SUMMARY | 2025-03-10 12:19 | XMS_ITS | Encounter Summary ---
Author Organization [facility] Address [address] [place] [phone] Care Team Providers Care Instant Print Operator Name Role Phone Naif Mixon MD Primary Care Provider [phone] Encounter Details Date Type Department Care Team (Late st Contact Info) Description 11/25/2024 Lab Requisition [facility] - Main Lab 299 [facility] [place] [address] Naif Mixon MD [address] [place] [address] Schizophrenia, unspecified (CMS/HCC V24, CMS/HCC V28); Major [...] Complete blood count (11/28/2024 10:46 AM EDT) [facility] WBC 3.9(L) 4.8 - 10.8 K/mcL LAB HEMETOLOGY METHOD [facility] RBC 4.00 3.80 - 4.80 M/mcL LAB HEMETOLOGY METHOD 11/28/2024 12:39 [facility] Hemoglobin 12.5 11.5 - 16.0 g/dL LAB HEMETOLOGY METHOD 11/28/2024 12:39 PM [facility] Hematocrit 37.6 35.0 - 47.0 % LAB HEMETOLOGY METHOD 11/28/2024 12:39 PM [facility] MCV 94.7 79.0 - 98.0 FL LAB HEMETOLOGY METHOD 11/28/2024 12:39 PM [facility] MCH 31.5 27.0 - 32.0 pcg LAB HEMETOLOGY METHOD 11/28/2024 12:39 PM [facility] MCHC 33.2 32.0 - 37.0 g/dL LAB HEMETOLOGY METHOD 11/28/2024 12:39 PM [facility] RDW 12.0 11.0 - 15.0 % LAB HEMETOLOGY METHOD 11/28/2024 12:39 PM [facility] Platelets 187 130 - 400 K/mcL LAB HEMETOLOGY METHOD 11/28/2024 12:39 PM [facility] MPV 9.1 7.0 - 11.0 FL LAB HEMETOLOGY METHOD 11/28/2024 12:39 PM [facility] NRBC 0.0 <1.0 % LAB HEMETOLOGY METHOD 11/28/2024 12:39 PM EDT [facility] NRBC Absolute 0.00 <0.10 K/mcL LAB HEMETOLOGY METHOD 11/28/2024 12:39 PM [facility] Blood Venous blood specimen / Unknown Venipuncture / Unknown 11/28/2024 10:46 AM EDT 11/28/2024 12:04 PM EDT us Naif Mixon MD LAB BLOOD ORDERABLES Final R esult [facility] [address] [place] [address], * (ABNORMAL) Basic metabolic panel (11/28/2024 10:46 AM EDT) Sodium 140 133 - 145 mmol/L LAB CHEMISTRY METHOD 11/28/2024 2:53 PM [facility] Potassium 3.8 3.5 - 5.5 mmol/L LAB CHEMISTRY METHOD 11/28/2024 2:53 PM [facility] Chloride 107 96 - 110 mmol/L LAB CHEMISTRY METHOD 11/28/2024 2:53 PM [facility] CO2 23 21 - 32 mmol/L LAB CHEMISTRY METHOD 11/28/2024 2:53 PM [facility] Anion Gap 10 3 - 11 LAB CHEMISTRY METHOD 11/28/2024 2:53 PM [facility] Glucose 143(H) 70 - 100 mg/dL LAB CHEMISTRY METHOD 11/28/2024 2:53 PM [facility] BUN 18 5 - 25 mg/dL LAB CHEMISTRY METHOD 11/28/2024 2:53 PM [facility] Creatinine 0.86 0.50 - 1.10 mg/dL LAB CHEMISTRY METHOD 11/28/2024 2:53 PM [facility] eGFR 77 >=60 mL/min/1. 73m2 LAB CHEMISTRY METHOD 11/28/2024 2:53 PM EDT [facility] Comment:Calculation based on the Chronic Kidney Disease Epidemiology Collaboration (CKD-EPI) equation refit without adjustment for race. BUN/Creatinine Ratio 20.9 LAB CHEMISTRY METHOD 11/28/2024 2:53 PM EDT [facility] Calcium 9.3 8.5 - 10.5 mg/dL LAB CHEMISTRY METHOD 11/28/2024 2:53 PM EDT [facility] Blood Venous blood specimen / Unknown Venipuncture / Unknown 11/28/2024 10:46 AM EDT 11/28/2024 12:04 PM EDT Naif Mixon MD LAB BLOOD ORDERABLES Final R esult [facility] [address] [place] [address], documented in this encounter Visit Diagnoses Diagnosis Schizophrenia, unspecified (CMS/HCC V24, CMS/HCC V28) Major depressive disorder, single episode, moderate (CMS/HCC V24, CMS/HCC V28) Major depressive disorder, single episode, moderate documented in this encounter Care Teams Instant Print Operator Relationship Specialty Start Date End Date Naif Mixon MD [address] [place] [address] PCP - General Family Medicine 05/20/24 documented as of this encounter
--- OUTSIDE RECORDS SUMMARY | 2025-03-10 12:19 | XMS_ITS | Encounter Summary ---
Author Organization [facility] Address [address] [place] [address] Care Team Providers Care Movie Operator Name Role Phone Naif Mixon MD Primary Care Provider [phone] Encounter Details Date Type Department Care Team (Late st Contact Info) Description 10/25/2024 Lab Requisition [facility] [address] [place] [address] Naif Mixon MD [address] [place] [address] Hypokalemia Social History Tobacco Use Types Packs/Day [...] LAB CHEMISTRY METHOD 10/25/2024 10:54 AM EDT [facility] Potassium 4.2 3.5 - 5.5 mmol/L LAB CHEMISTRY METHOD 10/25/2024 10:54 AM [facility] Chloride 109 96 - 110 mmol/L LAB CHEMISTRY METHOD 10/25/2024 10:54 AM [facility] CO2 26 21 - 32 mmol/L LAB CHEMISTRY METHOD 10/25/2024 10:54 AM [facility] Anion Gap 7 3 - 11 LAB CHEMISTRY METHOD 10/25/2024 10:54 AM [facility] Glucose 116(H) 70 - 100 mg/dL LAB CHEMISTRY METHOD 10/25/2024 10:54 AM [facility] BUN 15 5 - 25 mg/dL LAB CHEMISTRY METHOD 10/25/2024 10:54 AM [facility] Creatinine 0.96 0.50 - 1.10 mg/dL LAB CHEMISTRY METHOD 10/25/2024 10:54 AM [facility] eGFR 68 >=60 mL/min/1. 73m2 LAB CHEMISTRY METHOD 10/25/2024 10:54 AM [facility] Comment:Calculation based on the Chronic Kidney Disease Epidemiology Collaboration (CKD-EPI) equation refit without adjustment for race. BUN/Creatinine Ratio 15.6 LAB CHEMISTRY METHOD 10/25/2024 10:54 AM [facility] Calcium 9.0 8.5 - 10.5 mg/dL LAB CHEMISTRY METHOD 10/25/2024 10:54 AM [facility] Blood Venous blood specimen / Unknown Venipuncture / Unknown 10/25/2024 7:44 AM EDT 10/25/2024 9:44 AM EDT us Naif Mixon MD LAB BLOOD ORDERABLES Final R esult [facility] [address] [place] [address], * (ABNORMAL) Complete blood count (10/25/2024 7:44 AM EDT) [facility] WBC 4.5(L) 4.8 - 10.8 K/mcL LAB HEMETOLOGY METHOD 10/25/2024 10:14 AM [facility] RBC 3.70(L) 3.80 - 4.80 M/mcL LAB HEMETOLOGY METHOD 10/25/2024 10:14 AM [facility] Hemoglobin 12.2 11.5 - 16.0 g/dL LAB HEMETOLOGY METHOD 10/25/2024 10:14 AM [facility] Hematocrit 36.2 35.0 - 47.0 % LAB HEMETOLOGY METHOD 10/25/2024 10:14 AM [facility] MCV 97.1 79.0 - 98.0 FL LAB HEMETOLOGY METHOD 10/25/2024 10:14 AM [facility] MCH 32.7(H) 27.0 - 32.0 pcg LAB HEMETOLOGY METHOD 10/25/2024 10:14 AM [facility] MCHC 33.7 32.0 - 37.0 g/dL LAB HEMETOLOGY METHOD 10/25/2024 10:14 AM [facility] RDW 12.2 11.0 - 15.0 % LAB HEMETOLOGY METHOD 10/25/2024 10:14 AM [facility] Platelets 199 130 - 400 K/mcL LAB HEMETOLOGY METHOD 10/25/2024 10:14 AM [facility] MPV 8.9 7.0 - 11.0 FL LAB HEMETOLOGY METHOD 10/25/2024 10:14 AM [facility] NRBC 0.0 <1.0 % LAB HEMETOLOGY METHOD 10/25/2024 10:14 AM [facility] NRBC Absolute 0.00 <0.10 K/mcL LAB HEMETOLOGY METHOD 10/25/2024 10:14 AM EDT [facility] Blood Venous blood specimen / Unknown Venipuncture / Unknown 10/25/2024 7:44 AM EDT 10/25/2024 9:44 AM EDT us Naif Mixon MD LAB BLOOD ORDERABLES Final R esult [facility] [address] [place] [address], documented in this encounter Visit Diagnoses Diagnosis Hypokalemia Hypopotassemia documented in this encounter Care Teams Movie Operator Relationship Specialty Start Date End Date Naif Mixon MD [address] [place] [address] PCP - General Family Medicine 05/20/24 documented as of this encounter
--- OUTSIDE RECORDS SUMMARY | 2025-03-10 12:19 | XMS_ITS | Encounter Summary ---
Author Organization [facility] Address [address] [place] [address] Care Team Providers Care Coke Drawer Name Role Phone Naif Mixon MD Primary Care Provider [phone] Encounter Details Date Type Department Care Team (Latest Contact Info) Description 01/07/2025 Lab Requisition [facility] - Main Lab 299 [facility] [place] [address] Naif Mixon MD [address] [place] [address] Schizophrenia, unspecified (CMS/HCC V24, CMS/[facility] V28); Major depressive disorder, single episode, [...] V28) documented in this encounter Care Teams Coke Drawer Relationship Specialty Start Date End Date Naif Mixon MD [address] [place] [address] PCP - General Family Medicine 05/20/24 documented as of this encounter
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
--- OUTSIDE RECORDS SUMMARY | 2025-03-10 12:19 | XMS_ITS | Encounter Summary ---
Author Organization [facility] Address [address] [place] [phone] Care Team Providers Care Cesspool Cleaner Name Role Phone Naif Mixon MD Primary Care Provider [phone] Encounter Details Date Type Department Care Team (Latest Contact Info) Description 12/16/2024 Lab Requisition [facility] - Main Lab [address] [facility] [place] [address] Naif Mixon MD [address] [place] [address] Schizophrenia, unspecified (CMS/HCC V24, CMS/HCC V28); Other [...] Routine 12/19/2024 9:13 AM EDT Schizophrenia, unspecified ([facility] V24, [facility] V28) Other schizoaffective disorders ([employer] [facility] [employer] V24, [employer] [facility] [employer] V28) Major depressive disorder, single episode, moderate ([facility] V24, [employer] [facility] [employer] V28) documented in this encounter Results * (ABNORMAL) Basic metabolic panel (12/19/2024 9:39 AM EDT) Sodium 143 133 - 145 mmol/L LAB CHEMISTRY METHOD 12/19/2024 1:05 PM [facility] Potassium 3.7 3.5 - 5.5 mmol/L LAB CHEMISTRY METHOD 12/19/2024 1:05 PM [facility] Chloride 110 96 - 110 mmol/L LAB CHEMISTRY METHOD 12/19/2024 1:05 PM [facility] CO2 24 21 - 32 mmol/L LAB CHEMISTRY METHOD 12/19/2024 1:05 PM [facility] Anion Gap 9 3 - 11 LAB CHEMISTRY METHOD 12/19/2024 1:05 PM [facility] Glucose 136(H) 70 - 100 mg/dL LAB CHEMISTRY METHOD 12/19/2024 1:05 PM [facility] BUN 18 5 - 25 mg/dL LAB CHEMISTRY METHOD 12/19/2024 1:05 PM [facility] Creatinine 0.97 0.50 - 1.10 mg/dL LAB CHEMISTRY METHOD 12/19/2024 1:05 PM [facility] eGFR 67 >=60 mL/min/1. 73m2 LAB CHEMISTRY METHOD 12/19/2024 1:05 PM [facility] Comment:Calculation based on the Chronic Kidney Disease Epidemiology Collaboration (CKD-EPI) equation refit without adjustment for race. BUN/Creatinine Ratio 18.6 LAB CHEMISTRY METHOD 12/19/2024 1:05 PM [facility] Calcium 9.2 8.5 - 10.5 mg/dL LAB CHEMISTRY METHOD 12/19/2024 1:05 PM EDT [facility] Blood Venous blood specimen / Unknown Venipuncture / Unknown 12/19/2024 9:39 AM EDT 12/19/2024 10:57 AM EDT us Naif Mixon MD LAB BLOOD ORDERABLES Final R esult [facility] [address] [place] [address], * (ABNORMAL) Complete blood count (12/19/2024 9:13 AM EDT) WBC 3.1(L) 4.8 - 10.8 K/mcL LAB [facility]EM[facility]OLOGY [facility] RBC 4.20 3.80 - 4.80 M/mcL LAB HEMETOLOGY METHOD 12/19/2024 11:22 AM [facility] Hemoglobin 13.4 11.5 - 16.0 g/dL LAB HEMETOLOGY METHOD 12/19/2024 11:22 AM [facility] Hematocrit 40.7 35.0 - 47.0 % LAB HEMETOLOGY METHOD 12/19/2024 11:22 AM [facility] MCV 97.1 79.0 - 98.0 FL LAB HEMETOLOGY METHOD 12/19/2024 11:22 AM [facility] MCH 32.0 27.0 - 32.0 pcg LAB HEMETOLOGY METHOD 12/19/2024 11:22 AM [facility] MCHC 32.9 32.0 - 37.0 g/dL LAB HEMETOLOGY METHOD 12/19/2024 11:22 AM [facility] RDW 12.1 11.0 - 15.0 % LAB HEMETOLOGY METHOD 12/19/2024 11:22 AM EDT [facility] Platelets 201 130 - 400 K/mcL LAB HEMETOLOGY METHOD 12/19/2024 11:22 AM EDT [facility] MPV 9.3 7.0 - 11.0 FL LAB HEMETOLOGY METHOD 12/19/2024 11:22 AM EDT [facility] NRBC 0.0 <1.0 % LAB HEMETOLOGY METHOD 12/19/2024 11:22 AM EDT [facility] NRBC Absolute 0.00 <0.10 K/mcL LAB HEMETOLOGY METHOD 12/19/2024 11:22 AM EDT [facility] Blood Venous blood specimen / Unknown Venipuncture / Unknown 12/19/2024 9:13 AM EDT 12/19/2024 10:56 AM EDT us Naif Mixon MD LAB BLOOD ORDERABLES Final R esult [facility] [address] [place] [address], documented in this encounter Visit Diagnoses Diagnosis Schizophrenia, unspecified (CMS/HCC V24, CMS/HCC V28) Other schizoaffective disorders (CMS/HCC V24, CMS/HCC V28) Major depressive disorder, single episode, moderate (CMS/HCC V24, CMS/HCC V28) Major depressive disorder, single episode, moderate documented in this encounter Care Teams Cesspool Cleaner Relationship Specialty Start Date End Date Naif Mixon MD [address] [place] [address] PCP - General Family Medicine 05/20/24 documented as of this encounter
--- OUTSIDE RECORDS SUMMARY | 2025-03-10 12:19 | XMS_ITS | Encounter Summary ---
Author Organization [facility] Address [address] [place] [phone] Care Team Providers Care Benchroom Shop Optician Name Role Phone Naif Mixon MD Primary Care Provider [phone] Encounter Details Date Type Department Care Team (Latest Contact Info) Description 10/15/2024 Lab Requisition [facility] - Main Lab [address] [facility] [place] [address] Naif Mixon MD [address] [place] [address] Schizophrenia, unspecified (CMS/HCC V24, CMS/HCC V28); Major [...] Routine 10/17/2024 9:41 AM EDT Schizophrenia, unspecified ([facility] V24, [facility] V28) Major depressive disorder, single episode, moderate ([facility] V24, [facility] V28) Other schizoaffective disorders ([facility] V24, [facility] V28) documented in this encounter Results * (ABNORMAL) Basic metabolic panel (10/17/2024 9:41 AM EDT) Sodium 139 133 - 145 mmol/L LAB CHEMISTRY METHOD 10/17/2024 1:05 PM [facility] Potassium 3.9 3.5 - 5.5 mmol/L LAB CHEMISTRY METHOD 10/17/2024 1:05 PM [facility] Chloride 106 96 - 110 mmol/L LAB CHEMISTRY METHOD 10/17/2024 1:05 PM [facility] CO2 26 21 - 32 mmol/L LAB CHEMISTRY METHOD 10/17/2024 1:05 PM [facility] Anion Gap 7 3 - 11 LAB CHEMISTRY METHOD 10/17/2024 1:05 PM [facility] Glucose 144(H) 70 - 100 mg/dL LAB CHEMISTRY METHOD 10/17/2024 1:05 PM [facility] BUN 23 5 - 25 mg/dL LAB CHEMISTRY METHOD 10/17/2024 1:05 PM [facility] Creatinine 0.96 0.50 - 1.10 mg/dL LAB CHEMISTRY METHOD 10/17/2024 1:05 PM [facility] eGFR 68 >=60 mL/min/1. 73m2 LAB CHEMISTRY METHOD 10/17/2024 1:05 PM [facility] Comment:Calculation based on the Chronic Kidney Disease Epidemiology Collaboration (CKD-EPI) equation refit without adjustment for race. BUN/Creatinine Ratio 24.0 LAB CHEMISTRY METHOD 10/17/2024 1:05 PM [facility] Calcium 9.4 8.5 - 10.5 mg/dL LAB CHEMISTRY METHOD 10/17/2024 1:05 PM EDT [facility] Blood Venous blood specimen / Unknown Venipuncture / Unknown 10/17/2024 9:41 AM EDT 10/17/2024 11:27 AM EDT us Naif Mixon MD LAB BLOOD ORDERABLES Final R esult [facility] [address] [place] [address], * (ABNORMAL) Complete blood count (10/17/2024 9:41 AM EDT) WBC 4.0(L) 4.8 - 10.8 K/mcL LAB HEMETOLOGY METHOD 10/17/2024 12:18 PM EDT [facility] RBC 4.00 3.80 - 4.80 M/mcL LAB HEMETOLOGY METHOD [facility] Hemoglobin 12.8 11.5 - 16.0 g/dL LAB HEMETOLOGY METHOD 10/17/2024 12:18 PM [facility] Hematocrit 38.9 35.0 - 47.0 % LAB HEMETOLOGY METHOD 10/17/2024 12:18 PM T [facility] MCV 98.0 79.0 - 98.0 FL LAB HEMETOLOGY METHOD 10/17/2024 12:18 PM [facility] MCH 32.2(H) 27.0 - 32.0 pcg LAB HEMETOLOGY METHOD 10/17/2024 12:18 PM [facility] MCHC 32.9 32.0 - 37.0 g/dL LAB HEMETOLOGY METHOD 10/17/2024 12:18 PM [facility] RDW 12.3 11.0 - 15.0 % LAB HEMETOLOGY METHOD 10/17/2024 12:18 PM EDT [facility] Platelets 204 130 - 400 K/mcL LAB HEMETOLOGY METHOD 10/17/2024 12:18 PM EDT [facility] MPV 9.1 7.0 - 11.0 FL LAB HEMETOLOGY METHOD 10/17/2024 12:18 PM EDT [facility] NRBC 0.0 <1.0 % LAB HEMETOLOGY METHOD 10/17/2024 12:18 PM EDT [facility] NRBC Absolute 0.00 <0.10 K/mcL [facility] 10/17/2024 12:18 PM EDT [facility] Blood Venous blood specimen / Unknown Venipuncture / Unknown 10/17/2024 9:41 AM EDT 10/17/2024 11:27 AM EDT us Naif Mixon MD LAB BLOOD ORDERABLES Final R esult [facility] [address] [place] [address], documented in this encounter Visit Diagnoses Diagnosis Schizophrenia, unspecified (CMS/HCC V24, CMS/HCC V28) Major depressive disorder, single episode, moderate (CMS/HCC V24, CMS/HCC V28) Major depressive disorder, single episode, moderate Other schizoaffective disorders (CMS/HCC V24, CMS/HCC V28) documented in this encounter Care Teams Benchroom Shop Optician Relationship Specialty Start Date End Date Naif Mixon MD [address] [place] [address] PCP - General Family Medicine 05/20/24 documented as of this encounter
--- OUTSIDE RECORDS SUMMARY | 2025-03-10 12:19 | XMS_ITS | Encounter Summary ---
Author Organization [facility] Address [address] [place] [phone] Care Team Providers Care Agriculture Manager Name Role Phone Naif Mixon MD Primary Care Provider [phone] Encounter Details Date Type Department Care Team (Latest Contact Info) Description 12/31/2024 Lab Requisition [facility] - Main Lab 299 [facility] [place] [address] Naif Mixon MD [address] [place] [address] Schizophrenia, unspecified ([facility] V24, CMS/[facility] V28); Other schizoaffective disorders (CMS/HCC V24, CMS/HCC [...] moderate documented in this encounter Care Teams Agriculture Manager Relationship Specialty Start Date End Date Naif Mixon MD [address] [place] [id number] PCP - General Family Medicine 05/20/24 documented as of this encounter
--- OUTSIDE RECORDS SUMMARY | 2025-03-10 12:19 | XMS_ITS | Encounter Summary ---
Author Organization [facility] Address [address] [place] [phone] Care Team Providers Care Tooth Grinder Name Role Phone Naif Mixon MD Primary Care Provider [phone] Encounter Details Date Type Department Care Team (Late st Contact Info) Description 12/08/2024 Lab Requisition [facility] - Main Lab [address] [facility] [place] [address] Naif Mixon MD [address] [place] [address] Schizophrenia, unspecified (CMS/HCC V24, CMS/HCC V28); Major [...] esult [facility] [address] [place] [address], * (ABNORMAL) Complete blood count (12/12/2024 10:02 AM EDT) WBC 3.2(L) 4.8 - 10.8 K/mcL LAB HEMETOLOGY METHOD 12/12/2024 11:15 AM EDT [facility] RBC 4.10 3.80 - 4.80 M/mcL LAB HEMETOLOGY METHOD 12/12/2024 11:[address] [facility] Hemoglobin 12.9 11.5 - 16.0 g/dL LAB HEMETOLOGY METHOD 12/12/2024 11:15 AM T [facility] Hematocrit 39.0 35.0 - 47.0 % LAB HEMETOLOGY METHOD 12/12/2024 11:15 AM EDT [facility] MCV 96.3 79.0 - 98.0 FL LAB HEMETOLOGY METHOD 12/12/2024 11:[address] [facility] MCH 31.9 27.0 - 32.0 pcg LAB HEMETOLOGY METHOD 12/12/2024 11:15 AM T [facility] MCHC 33.1 32.0 - 37.0 g/dL LAB HEMETOLOGY METHOD 12/12/2024 11:15 AM T [facility] RDW 12.2 11.0 - 15.0 % LAB HEMETOLOGY METHOD 12/12/2024 11:[address] [facility] Platelets 201 130 - 400 K/mcL LAB HEMETOLOGY METHOD 12/12/2024 11:[address] [facility] MPV 9.2 7.0 - 11.0 FL LAB HEMETOLOGY METHOD 12/12/2024 11:15 AM EDT [facility] NRBC 0.0 <1.0 % LAB HEMETOLOGY METHOD 12/12/2024 11:15 AM EDT [facility] NRBC Absolute 0.00 <0.10 K/mcL LAB HEMETOLOGY METHOD 12/12/2024 11:15 AM EDT [facility] Blood Venous blood specimen / Unknown Venipuncture / Unknown 12/12/2024 10:02 AM EDT 12/12/2024 11:00 AM EDT Naif Mixon MD LAB BLOOD ORDERABLES Final R esult [facility] [address] [place] [address], documented in this encounter Visit Diagnoses Diagnosis Schizophrenia, unspecified (CMS/HCC V24, CMS/HCC V28) Major depressive disorder, single episode, moderate (CMS/HCC V24, CMS/HCC V28) Major depressive disorder, single episode, moderate documented in this encounter Care Teams Tooth Grinder Relationship Specialty Start Date End Date Naif Mixon MD [address] [place] [address] PCP - General Family Medicine 05/20/24 documented as of this encounter
--- OUTSIDE RECORDS SUMMARY | 2025-03-10 12:19 | XMS_ITS | Encounter Summary ---
Author Organization [facility] Address [address] [place] [phone] Phone Care Team Providers Care Hand Fur Cleaner Name Role Phone Stacey Reis MD Primary Care Provider [phone] Stacey Reis MD Unavailable [phone] Khurram Ruelas MD Unavailable + Khurram Ruelas MD Unavailable + Stacey Reis MD Unavailable [phone] Waylon Crespo MD Unavailable + Waylon Crespo MD Unavailable + Stacey Reis MD Unavailable [phone] Beryl Shirley COMMUNITY DIRECTOR Unavailable [phone] Kaleigh Adams COMMUNITY DIRECTOR Unavailable [phone] [facility] Catrina Mcclendon COMMUNITY DIRECTOR Unavailable + [phone] Romain Paulson COMMUNITY DIRECTOR Unavailable [email or web address] Yomi Bass MD Unavailable [phone] Keny Govea COMMUNITY DIRECTOR Unavailable [phone] Unknown, Unknown Primary Care Provider Yomi Gray MD Unavailable [phone] Alba Harmon MD Unavailable [phone] Pcp, Unknown Primary Care Provider Unavailabl e Encounter Details Date Type Department Care Team (Late st Contact Info) Description 06/08/2017 Procedure Pass [facility] 4 ENDO DEPT [address] [facility], 4th [place] [address] Social History Tobacco Use Types Packs/Day Years [...] EST [facility] [address] [place] [address] documented as of this encounter Visit Diagnoses Not on filedocumented in this encounter Additional Health Concerns Assessment Noted Time PHQ-2 Depression Total Score: 0 03/25/20 17 1:47 PM EDT documented as of this encounter Care Teams Hand Fur Cleaner Relationship Specialty Start Date End Date Stacey Reis MD [email or web address] PCP - General 03/11/14 02/16/22 Khurram Ruelas MD [address] [place] [phone] [email or web address] PCP - Resident PCP 12/01/16 11/29/18 Waylon Crespo MD [address] [place] [address] [phone] [place] [address] [email or web address] PCP - Resident PCP 11/30/1811/29 Yomi Bass MD [address] [place] [address] 730 [place] [address] [email or web address] PCP - Resident PCP 11/30/21 02/16/22 Unknown, German, PCP - General 03/03/22 11/16/23 Pcp, Unknown PCP - General 11/17/23 Stacey Reis MD [address] [place] [address] [place] [phone] [email or web address] Insurance Assigned Provider 09/20/16 Khurram Ruelas MD [address] [place] [phone] [email or web address] Partners Attributed Provider 01/10/1712/11 Stacey Reis MD [address] [place] [address] [email or web address] Insurance Assigned Provider 09/18/1810/09/18 Waylon Crespo MD [address] [place] [address] [phone] [place] [address] [email or web address] Attributed Provider 01/08/19 07/12/22 Stacey Reis MD [address] [place] [address] [place] [phone] [email or web address] Insurance Assigned Provider 09/14/1909/13/22 Beryl Shirley [address] [phone] [email or web address] Social Work 01/24/20 07/16/20 Kaleigh Adams COMMUNITY DIRECTOR [address] [place] [phone] [email or web address] 06/06/20 07/31/20 Brandon Catrina Mcclendon [facility] [address] [place] [phone] [email or web address] Work 07/17/20 07/18/21 Romain Paulson, [facility] [address] [place] [phone] [email or web address] 07/19/21 Keny Govea, [facility] [address] [place] [address] [email or web address] 01/03/22 Yomi Bass MD [address] [place] [address] 7[address] [place] [address] [email or web address] Partners Attributed Provider 07/12/22 06/13/23 Alba Harmon MD [address] [place] [address], [address] Floor, [address] [place] [address] 10 [place] [address] [email or web address] Insurance Assigned Provider 09/13/22 documented as of this encounter Additional Source Comments The information contained in this document represents components of the legal health record. It is not the complete legal health record.[facility]
--- OUTSIDE RECORDS SUMMARY | 2025-03-10 12:19 | XMS_ITS | Encounter Summary ---
Author Organization [facility] Address [address] [place] [address] Care Team Providers Care Keno Writer / Runner Name Role Phone Naif Mixon MD Primary Care Provider [phone] Encounter Details Date Type Department Care Team (Late st Contact Info) Description 12/06/2024 Lab Requisition [facility] - Main Lab [address] 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 CBC AND DIFFERENTIAL Routine 12/06/2024 5:50 AM EDT Hypokalemia Acute kidney failure, unspecified ([facility]/HCC V24) Prediabetes Other nursing home (current) drug therapy HEMOGLOBIN A1C Routine 12/06/2024 5:50 AM EDT Hypokalemia Acute kidney failure, unspecified ([facility]/HCC V24) Prediabetes 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 FOLATE Routine 12/06/2024 5:50 AM EDT Hypokalemia Acute kidney failure, unspecified (CMS/HCC V24) Prediabetes Other nursing home (current) drug therapy VITAMIN B12 Routine 12/06/2024 5:50 AM EDT Hypokalemia Acute kidney failure, unspecified ([facility]/HCC V24) Prediabetes Other nursing home (current) drug therapy BASIC METABOLIC PANEL Routine 12/06/2024 5:50 AM EDT Hypokalemia Acute kidney failure, unspecified ([facility]/HCC V24) Prediabetes Other nursing home (current) drug therapy documented in this encounter Results * (ABNORMAL) CBC auto differential (12/06/2024 5:50 AM EDT) [facility] WBC 3.4(L) 4.8 - 10.8 K/mcL LAB HEMETOLOG[facility] RBC 3.70(L) 3.80 - 4.80 M/mcL LAB HEMETOLOGY METHOD 12/06/2024 11:15 AM EDT [facility] LAB Hemoglobin 11.7 11.5 - 16.0 g/dL LAB HEMETOLOGY METHOD 12/06/2024 11:15 AM [facility] LAB Hematocrit 35.7 35.0 - 47.0 % LAB HEMETOLOGY METHOD 12/06/2024 11:15 AM [facility] LAB MCV 96.0 79.0 - 98.0 FL LAB HEMETOLOGY METHOD 12/06/2024 11:15 AM [facility] LAB MCH 31.5 27.0 - 32.0 pcg LAB HEMETOLOGY METHOD 12/06/2024 11:15 AM [facility] LAB MCHC 32.8 32.0 - 37.0 g/dL LAB HEMETOLOGY METHOD 12/06/2024 11:15 AM [facility] LAB RDW 12.0 11.0 - 15.0 % LAB HEMETOLOGY METHOD 12/06/2024 11:15 AM [facility] LAB Platelets 204 130 - 400 K/mcL LAB HEMETOLOGY METHOD 12/06/2024 11:15 AM [facility] LAB MPV 9.3 7.0 - 11.0 FL LAB HEMETOLOGY METHOD 12/06/2024 11:15 AM [facility] LAB NRBC 0.0 <1.0 % LAB HEMETOLOGY METHOD 12/06/2024 11:15 AM [facility] LAB NRBC Absolute 0.00 <0.10 K/mcL LAB HEMETOLOGY METHOD 12/06/2024 11:15 AM [facility] LAB Neutrophils Relative 41.1 % LAB HEMETOLOGY METHOD 12/06/2024 11:15 AM [facility] LAB Lymphocytes Relative 46.4 % LAB HEMETOLOGY METHOD 12/06/2024 11:15 AM [facility] LAB Monocytes Relative 8.7 % LAB HEMETOLOGY METHOD 12/06/2024 11:15 AM [facility] LAB Eosinophils Relative 2.6 % LAB HEMETOLOGY METHOD 12/06/2024 11:15 AM [facility] LAB Basophils Relative 0.9 % LAB HEMETOLOGY METHOD 12/06/2024 11:15 AM [facility] LAB Immature Granulocytes Relative 0.3 % LAB HEMETOLOGY METHOD 12/06/2024 11:15 AM EDT [facility] LAB Neutrophils Absolute 1.41(L) 1.50 - 7.00 K/[facility] LAB HEMETOLOGY METHOD 12/06/2024 11:15 AM EDT [facility] LAB Lymphocytes Absolute 1.59 1.00 - 5.00 K/[facility] LAB HEMETOLOGY METHOD 12/06/2024 11:15 AM EDT [facility] LAB Monocytes Absolute 0.30 0.20 - 1.00 K/[facility] LAB HEMETOLOGY METHOD 12/06/2024 11:15 AM EDT [facility] LAB Eosinophils Absolute 0.09 0.00 - 0.50 K/[facility] LAB HEMETOLOGY METHOD 12/06/2024 11:15 AM EDT [facility] LAB Basophils Absolute 0.03 0.00 - 0.20 K/[facility] LAB HEMETOLOGY METHOD 12/06/2024 11:15 AM EDT [facility] LAB Immature Granulocytes Absolute 0.01 0.00 - 0.03 K/[facility] LAB HEMETOLOGY METHOD 12/06/2024 11:15 AM EDT [facility] LAB Blood Venous blood specimen / Unknown Venipuncture / Unknown 12/06/2024 5:50 AM EDT 12/06/2024 10:25 AM EDT Naif Mixon MD LAB BLOOD ORDERABLES Final R esult [facility] LAB [address] [place] [address], * (ABNORMAL) Folate (12/06/2024 5:50 AM EDT) Folate 17.9(H) 2.8 - 17.0 ng/ml LAB CHEMISTRY METHOD 12/06/2024 12:23 PM EDT [facility] LAB Blood Venous blood specimen / Unknown Venipuncture / Unknown 12/06/2024 5:50 AM EDT 12/06/2024 10:25 AM EDT Naif Mixon MD LAB BLOOD ORDERABLES Final R esult Performing Organization Address City/[facility]/ZIP Co de Phone Number [facility] LAB [address] [place] [address], [place] [phone] * Vitamin B12 (12/06/2024 5:50 AM EDT) [facility] Vitamin B-12 430 250 - 900 pcg/mL LAB CHEMISTRY METHOD 12/06/2024 12:23 PM EDT [facility] LAB Blood Venous blood specimen / Unknown Venipuncture / Unknown 12/06/2024 5:50 AM EDT 12/06/2024 10:25 AM EDT Naif Mixon MD LAB BLOOD ORDERABLES Final R esult Performing Organization Address City/[facility]/ZIP Co de Phone Number [facility] [address] [place] [address], [place] [phone] * Hemoglobin A1c (12/06/2024 5:50 AM EDT) [facility] Hemoglobin A1C 6.2 <6.5 % LAB CHEMISTRY METHOD 12/06/2024 12:38 PM EDT [facility] Mean Bld Glu Estim. 131 mg/dL LAB CHEMISTRY METHOD 12/06/2024 12:38 PM EDT [facility] LAB Blood Venous blood specimen / Unknown Venipuncture / Unknown 12/06/2024 5:50 AM EDT 12/06/2024 10:25 AM EDT us Naif Mixon MD LAB BLOOD ORDERABLES Final R esult Performing Organization Address City/[facility]/ZIP Co de Phone Number [facility] [address] [place] [address], [place] [phone] * (ABNORMAL) Lipid panel with reflex to direct LDL (12/06/2024 5:50 AM EDT) Cholesterol 223(H) 0 - 200 mg/dL LAB CHEMISTRY METHOD 12/06/2024 12:23 PM EDT [facility] LAB Triglycerides 172(H) 0 - 150 mg/dL LAB CHEMISTRY METHOD 12/06/2024 12:23 PM EDT [facility] HDL 45 >=40 mg/dL LAB CHEMISTRY METHOD 12/06/2024 12:23 PM EDT [facility] LDL Calculated 144(H) 0 - 100 mg/dL LAB CHEMISTRY METHOD 12/06/2024 12:23 PM EDT [facility] LAB VLDL Cholesterol Maynor 34.4 mg/dL LAB CHEMISTRY METHOD 12/06/2024 12:23 PM T [facility] LAB Non HDL Chol. (LDL+VLDL) 178(H) <145 mg/dL LAB CHEMISTRY METHOD 12/06/2024 12:23 PM T [facility] LAB Chol/HDL Ratio 5.0(H) 0.0 - 4.4 LAB CHEMISTRY METHOD 12/06/2024 12:23 PM [facility] LAB Blood Venous blood specimen / Unknown Venipuncture / Unknown 12/06/2024 5:50 AM EDT 12/06/2024 10:25 AM EDT us Naif Mixon MD LAB BLOOD ORDERABLES Final R esult [facility] [address] [place] [address], * Basic metabolic panel (12/06/2024 5:50 AM EDT) Sodium 142 133 - 145 mmol/L LAB CHEMISTRY METHOD 12/06/2024 12:23 PM EDT [facility] Potassium 3.7 3.5 - 5.5 mmol/L LAB CHEMISTRY METHOD 12/06/2024 12:23 PM [facility] LAB Chloride 108 96 - 110 mmol/L LAB CHEMISTRY METHOD 12/06/2024 12:23 PM [facility] LAB CO2 24 21 - 32 mmol/L LAB CHEMISTRY METHOD 12/06/2024 12:23 PM [facility] Anion Gap 10 3 - 11 LAB CHEMISTRY METHOD 12/06/2024 12:23 PM [facility] Glucose 87 70 - 100 mg/dL LAB CHEMISTRY METHOD 12/06/2024 12:23 PM [facility] BUN 16 5 - 25 mg/dL LAB CHEMISTRY METHOD 12/06/2024 12:23 PM [facility] LAB Creatinine 0.87 0.50 - 1.10 mg/dL LAB CHEMISTRY METHOD 12/06/2024 12:23 PM [facility] LAB eGFR 76 >=60 mL/min/1. 73m2 LAB CHEMISTRY METHOD 12/06/2024 12:23 PM [facility] LAB Comment:Calculation based on the Chronic Kidney Disease Epidemiology Collaboration (CKD-EPI) equation refit without adjustment for race. BUN/Creatinine Ratio 18.4 LAB CHEMISTRY METHOD 12/06/2024 12:23 PM [facility] Calcium 9.0 8.5 - 10.5 mg/dL LAB CHEMISTRY METHOD 12/06/2024 12:23 PM [facility] LAB Blood Venous blood specimen / Unknown Venipuncture / Unknown 12/06/2024 5:50 AM EDT 12/06/2024 10:25 AM EDT us Naif Mixon MD LAB BLOOD ORDERABLES Final R esult [facility] [address] [place] [address], documented in this encounter Visit Diagnoses Diagnosis Hypokalemia Hypopotassemia Acute kidney failure, unspecified (CMS/[facility] V24) Acute kidney failure, unspecified Prediabetes Other abnormal glucose Other nursing home (current) drug therapy documented in this encounter Care Teams Keno Writer / Runner Relationship Specialty Start Date End Date Naif Mixon MD [address] [place] [address] PCP - General Family Medicine 05/20/24 documented as of this encounter
--- OUTSIDE RECORDS SUMMARY | 2025-03-10 12:19 | XMS_ITS | Encounter Summary ---
Author Organization [facility] Address [address] [place] [address] Phone Care Team Providers Care Family Resource Specialist Name Role Phone Stacey Reis MD Primary Care Provider [phone] Stacey Reis MD Unavailable [phone] Khurram Ruelas MD Unavailable + Khurram Ruelas MD Unavailable + Stacey Reis MD Unavailable [phone] Waylon Crespo MD Unavailable + Waylon Crespo MD Unavailable + Stacey Reis MD Unavailable [phone] Beryl Shirley POULTRY PICKING MACHINE TENDER Unavailable [phone] Kaleigh Adams POULTRY PICKING MACHINE TENDER Unavailable [phone] [facility] Catrina Mcclendon POULTRY PICKING MACHINE TENDER Unavailable + [phone] Romain Paulson POULTRY PICKING MACHINE TENDER Unavailable MARLENE [email or web address] Yomi Bass MD Unavailable [phone] Keny Govea POULTRY PICKING MACHINE TENDER Unavailable [phone] Unknown, Unknown Primary Care Provider Yomi Gray MD Unavailable [phone] Alba Harmon MD Unavailable [phone] Pcp, Unknown Primary Care Provider Unavailabl e Encounter Details Date Type Department Care Team (Late st Contact Info) Description 07/22/2017 Procedure Pass [facility] [address] [facility], 4th [place] [address] Social History Tobacco Use Types Packs/Day Years [...] EST [facility] [address] 1st [place] [address] documented as of this encounter Visit Diagnoses Not on filedocumented in this encounter Additional Health Concerns Assessment Noted Time PHQ-2 Depression Total Score: 0 03/25/20 17 1:47 PM EDT documented as of this encounter Care Teams Family Resource Specialist Relationship Specialty Start Date End Date Stacey Reis MD [email or web address] PCP - General 03/11/14 02/16/22 Khurram Ruelas MD [address] [place] [id number] [email or web address] PCP - Resident PCP 12/01/16 11/29/18 Waylon Crespo MD [address] [place] [address] [phone] [place] [address] [email or web address] PCP - Resident PCP 11/30/1811/29 Yomi Bass MD [address] [place] [address] 7[address] [place] [address] [email or web address] PCP - Resident PCP 11/30/21 02/16/22 Unknown, German, PCP - General 03/03/22 11/16/23 Pcp, Unknown PCP - General 11/17/23 Stacey Reis MD [address] [place] [address] [place] [address] [email or web address] Insurance Assigned Provider 09/20/16 Khurram Ruelas MD [address] [place] [address] [email or web address] Partners Attributed Provider 01/10/1712/11 Stacey Reis MD [address] [place] [phone] [email or web address] Insurance Assigned Provider 09/18/1810/09/18 Waylon Crespo MD [address] [place] [address] [phone] [place] [address] [email or web address] Partners Attributed Provider 01/08/19 07/12/22 Stacey Reis MD [address] [place] [address] [place] [address] [email or web address] Insurance Assigned Provider 09/14/1909/13/22 Beryl Shirley [address] [phone] [email or web address] Social Work 01/24/20 07/16/20 Kaleigh Adams POULTRY PICKING MACHINE TENDER [address] [place] [phone] [email or web address] Branch Operations Manager 06/06/20 07/31/20 Brandon Catrina Mcclendon [facility] [address] [place] [phone] [email or web address] Social Work 07/17/20 07/18/21 Romain Paulson, [facility] [address] [place] [address] [email or web address] Social Work 07/19/21 Keny Govea, [facility] [address] [place] [address] [email or web address] Social Work 01/03/22 Yomi Bass MD [address] [place] [address] 7[address] [place] [address] [email or web address] Partners Attributed Provider 07/12/22 06/13/23 Alba Harmon MD [address] [place] [address], 10th Floor, [address] [place] [address] 10 [place] [address] [email or web address] Insurance Assigned Provider 09/13/22 documented as of this encounter Additional Source Comments The information contained in this document represents components of the legal health record. It is not the complete legal health record.[facility]
--- OUTSIDE RECORDS SUMMARY | 2025-03-10 12:19 | XMS_ITS | Encounter Summary ---
Author Organization [facility] Address [address] [place] [address] [address] [place] [address] Phone Care Team Providers Care Senior Ssis Developer Name Role Phone Stacey Reis MD Primary Care Provider + [phone] Waylon Crespo MD Unavailable [phone] Waylon Crespo MD Unavailable [phone] Stacey Reis MD Unavailable [phone] Beryl Shirley VIDEO ENGINEER Unavailable [phone] Kaleigh Adams VIDEO ENGINEER Unavailable [phone] GustavoCatrina Nelson VIDEO ENGINEER Unavailable + [phone] Romain Bolanos VIDEO ENGINEER Unavailable MARLENE [email or web address] Yomi Bass MD Unavailable [phone] Keny Govea VIDEO ENGINEER Unavailable [phone] Unknown, Unknown Primary Care Provider Yomi Gray MD Unavailable [phone] Alba Harmon MD Unavailable [phone] Pcp, Unknown Primary Care Provider Unavailabl e Encounter Details Date Type Department Care Team (Late st Contact Info) Description 05/23/2020 Procedure Pass [facility], [place] [address] [facility], 2nd Floor, [address] [place] [address] Social History Tobacco Use Types Packs/Day Years [...] EST [facility] [address] [place] 1st [place] [address] documented as of this encounter Goals Goal [...] documented as of this encounter Care Teams Senior Ssis Developer Relationship Specialty Start Date End Date Stacey Reis MD [email or web address] PCP - General 03/11/14 02/16/22 Waylon Crespo MD [address] [place] [address] [phone] [place] [address] [email or web address] PCP - Resident PCP 11/30/1811/29 Yomi Bass MD 15 [facility] [address]30 [place] [address] [email or web address] PCP - Resident PCP 11/30/21 02/16/22 German Porter MD PCP - General 03/03/22 11/16/23 Pcp, Unknown PCP - General 11/17/23 Waylon Crespo MD [address] [facility] [address] [place] [address] [email or web address] Attributed Provider 01/08/19 07/12/22 Stacey Reis MD 55 [facility] [address] [place] [address] [email or web address] Insurance Assigned Provider 09/14/1909/13/22 Beryl Shirley, [address] [address] [email or web address] Social Work 01/24/20 07/16/20 Kaleigh Adams [facility] [address] [place] [phone] [email or web address]ist 06/06/20 07/31/20 Catrina Lee [facility] [address] [place] [phone] [email or web address] Social Work 07/17/20 07/18/21 Romain Bolanos, [address] [phone] [email or web address] 07/19/21 Keny Govea, [facility] [address] [place] [address] [email or web address] 01/03/22 Yomi Bass MD [address] [place] [address] 730 [place] [address] [email or web address] Partners Attributed Provider 07/12/22 06/13/23 Alba Harmon MD [address] [place] [address], 10th [facility], [address] [place] [address] 10 [place] [address] [email or web address] Insurance Assigned Provider 09/13/22 documented as of this encounter Additional Source Comments The information contained in this document represents components of the legal health record. It is not the complete legal health record.[facility]
--- OUTSIDE RECORDS SUMMARY | 2025-03-10 12:19 | XMS_ITS | Encounter Summary ---
Author Organization [facility] Address [address] [place] [phone] Care Team Providers Care Development Technical Lead Name Role Phone Naif Mixon MD Primary Care Provider [phone] Encounter Details Date Type Department Care Team (Late st Contact Info) Description 10/31/2024 Lab Requisition [facility] - Main Lab 299 [facility] [place] [address] Naif Mixon MD [address] [place] [address] Schizophrenia, unspecified (CMS/HCC V24, CMS/HCC V28); Major [...] mmol/L LAB CHEMISTRY METHOD 11/01/2024 11:16 AM [facility] Potassium 3.6 3.5 - 5.5 mmol/L LAB CHEMISTRY METHOD 11/01/2024 11:16 AM [facility] Chloride 107 96 - 110 mmol/L LAB CHEMISTRY METHOD 11/01/2024 11:16 AM [facility] CO2 24 21 - 32 mmol/L LAB CHEMISTRY METHOD 11/01/2024 11:16 AM [facility] Anion Gap 9 3 - 11 LAB CHEMISTRY METHOD 11/01/2024 11:16 AM [facility] Glucose 101(H) 70 - 100 mg/dL LAB CHEMISTRY METHOD 11/01/2024 11:16 AM [facility] BUN 18 5 - 25 mg/dL LAB CHEMISTRY METHOD 11/01/2024 11:16 AM [facility] Creatinine 0.96 0.50 - 1.10 mg/dL LAB CHEMISTRY METHOD 11/01/2024 11:16 AM [facility] LAB eGFR 68 >=60 mL/min/1. 73m2 LAB CHEMISTRY METHOD 11/01/2024 11:16 AM [facility] Comment:Calculation based on the Chronic Kidney Disease Epidemiology Collaboration (CKD-EPI) equation refit without adjustment for race. BUN/Creatinine Ratio 18.8 LAB CHEMISTRY METHOD 11/01/2024 11:16 AM [facility] Calcium 8.8 8.5 - 10.5 mg/dL LAB CHEMISTRY METHOD 11/01/2024 11:16 AM [facility] Blood Venous blood specimen / Unknown Venipuncture / Unknown 11/01/2024 7:15 AM EDT 11/01/2024 10:14 AM EDT us Naif Mixon MD LAB BLOOD ORDERABLES Final R esult [facility] [address] [place] [address], * (ABNORMAL) Complete blood count (11/01/2024 7:15 AM EDT) [facility] Signature WBC 4.5(L) 4.8 - 10.8 K/mcL LAB HEMETOLOGY METHOD 11/01/2024 10:35 AM EDT [facility] RBC 3.60(L) 3.80 - 4.80 M/mcL LAB HEMETOLOGY METHOD 11/01/2024 10:35 AM EDT [facility] Hemoglobin 11.6 11.5 - 16.0 g/dL LAB HEMETOLOGY METHOD 11/01/2024 10:35 AM EDT [facility] Hematocrit 35.1 35.0 - 47.0 % LAB HEMETOLOGY METHOD 11/01/2024 10:35 AM EDT [facility] MCV 96.7 79.0 - 98.0 FL LAB HEMETOLOGY METHOD 11/01/2024 10:35 AM EDT [facility] MCH 32.0 27.0 - 32.0 pcg LAB HEMETOLOGY METHOD 11/01/2024 10:35 AM EDT [facility] MCHC 33.0 32.0 - 37.0 g/dL LAB HEMETOLOGY METHOD 11/01/2024 10:35 AM EDT [facility] RDW 11.9 11.0 - 15.0 % LAB HEMETOLOGY METHOD 11/01/2024 10:35 AM EDT [facility] Platelets 214 130 - 400 K/mcL LAB HEMETOLOGY METHOD 11/01/2024 10:35 AM EDT [facility] MPV 8.9 7.0 - 11.0 FL LAB HEMETOLOGY METHOD 11/01/2024 10:35 AM EDT [facility] NRBC 0.0 <1.0 % [facility] 11/01/2024 10:35 AM EDT [facility] NRBC Absolute 0.00 <0.10 K/mcL LAB HEMETOLOGY METHOD 11/01/2024 10:35 AM EDT [facility] Blood Venous blood specimen / Unknown Venipuncture / Unknown 11/01/2024 7:15 AM EDT 11/01/2024 10:14 AM EDT us Naif Mixon MD LAB BLOOD ORDERABLES Final R esult [facility] [address] [place] [address], documented in this encounter Visit Diagnoses Diagnosis Schizophrenia, unspecified (CMS/HCC V24, CMS/HCC V28) Major depressive disorder, single episode, moderate (CMS/HCC V24, CMS/HCC V28) Major depressive disorder, single episode, moderate documented in this encounter Care Teams Development Technical Lead Relationship Specialty Start Date End Date Naif Mixon MD [address] [place] [address] PCP - General Family Medicine 05/20/24 documented as of this encounter
--- OUTSIDE RECORDS SUMMARY | 2025-03-10 12:19 | XMS_ITS | Encounter Summary ---
Author Organization [facility] Address [address] [place] [phone] Care Team Providers Care Tank Car Repairer Name Role Phone Naif Mixon MD Primary Care Provider [phone] Encounter Details Date Type Department Care Team (Latest Contact Info) Description 12/23/2024 Lab Requisition [facility] - Main Lab 299 [facility] [place] [address] Naif Mixon MD [address] [place] [address] Schizophrenia, unspecified (CMS/HCC V24, CMS/HCC V28); Other [...] Routine 12/26/2024 8:37 AM EDT Schizophrenia, unspecified ([facility] V24, [facility] V28) Other schizoaffective disorders ([facility] V24, [facility] V28) Major depressive disorder, single episode, moderate ([facility] V24, [facility] V28) documented in this encounter Results * (ABNORMAL) Complete blood count (12/26/2024 8:37 AM EDT) [facility] WBC 3.3(L) 4.8 - 10.8 K/mcL LAB HEMETOLOGY METHOD 12/26/2024 10:26 AM [facility] LAB RBC 3.70(L) 3.80 - 4.80 M/mcL LAB HEMETOLOGY METHOD 12/26/2024 10:26 AM [facility] Hemoglobin 12.0 11.5 - 16.0 g/dL LAB HEMETOLOGY METHOD 12/26/2024 10:26 AM [facility] LAB Hematocrit 36.8 35.0 - 47.0 % LAB HEMETOLOGY METHOD 12/26/2024 10:26 AM [facility] LAB MCV 98.4(H) 79.0 - 98.0 FL LAB HEMETOLOGY METHOD 12/26/2024 10:26 AM [facility] LAB MCH 32.1(H) 27.0 - 32.0 pcg LAB HEMETOLOGY METHOD 12/26/2024 10:26 AM [facility] LAB MCHC 32.6 32.0 - 37.0 g/dL LAB HEMETOLOGY METHOD 12/26/2024 10:26 AM [facility] RDW 12.2 11.0 - 15.0 % LAB HEMETOLOGY METHOD 12/26/2024 10:26 AM [facility] LAB Platelets 184 130 - 400 K/mcL LAB HEMETOLOGY METHOD 12/26/2024 10:26 AM [facility] LAB MPV 9.7 7.0 - 11.0 FL LAB HEMETOLOGY METHOD 12/26/2024 10:26 AM EDT [facility] NRBC 0.0 <1.0 % [facility] 12/26/2024 10:26 AM EDT [facility] NRBC Absolute 0.00 <0.10 K/mcL LAB HEMETOLOGY METHOD 12/26/2024 10:26 AM EDT [facility] Blood Venous blood specimen / Unknown Venipuncture / Unknown 12/26/2024 8:37 AM EDT 12/26/2024 10:04 AM EDT Naif Mixon MD LAB BLOOD ORDERABLES Final R esult [facility] [address] [place] [address], * (ABNORMAL) Basic metabolic panel (12/26/2024 8:37 AM EDT) Sodium 143 133 - 145 mmol/L LAB CHEMISTRY METHOD 12/26/2024 11:38 AM [facility] Potassium 4.0 3.5 - 5.5 mmol/L LAB CHEMISTRY METHOD 12/26/2024 11:38 AM [facility] Chloride 115(H) 96 - 110 mmol/L LAB CHEMISTRY METHOD 12/26/2024 11:38 AM [facility] CO2 23 21 - 32 mmol/L LAB CHEMISTRY METHOD 12/26/2024 11:38 AM [facility] Anion Gap 5 3 - 11 LAB CHEMISTRY METHOD 12/26/2024 11:38 AM [facility] Glucose 99 70 - 100 mg/dL LAB CHEMISTRY METHOD 12/26/2024 11:38 AM [facility] BUN 13 5 - 25 mg/dL LAB CHEMISTRY METHOD 12/26/2024 11:38 AM EDT [facility] Creatinine 0.94 0.50 - 1.10 mg/dL LAB CHEMISTRY METHOD 12/26/2024 11:38 AM EDT [facility] eGFR 70 >=60 mL/min/1. 73m2 LAB CHEMISTRY METHOD 12/26/2024 11:38 AM EDT [facility] Comment:Calculation based on the Chronic Kidney Disease Epidemiology Collaboration (CKD-EPI) equation refit without adjustment for race. BUN/Creatinine Ratio 13.8 LAB CHEMISTRY METHOD 12/26/2024 11:38 AM T [facility] Calcium 8.7 8.5 - 10.5 mg/dL LAB CHEMISTRY METHOD 12/26/2024 11:38 AM T [facility] Blood Venous blood specimen / Unknown Venipuncture / Unknown 12/26/2024 8:37 AM EDT 12/26/2024 10:04 AM EDT us Naif Mixon MD LAB BLOOD ORDERABLES Final R esult [facility] [address] [place] [address], documented in this encounter Visit Diagnoses Diagnosis Schizophrenia, unspecified ([facility] V24, [facility] V28) Other schizoaffective disorders ([facility] V24, [facility] V28) Major depressive disorder, single episode, moderate ([facility] V24, [facility] V28) Major depressive disorder, single episode, moderate documented in this encounter Care Teams Tank Car Repairer Relationship Specialty Start Date End Date Naif Mixon MD [address] [place] [address] PCP - General Family Medicine 05/20/24 documented as of this encounter
--- OUTSIDE RECORDS SUMMARY | 2025-03-10 12:19 | XMS_ITS | Encounter Summary ---
Author Organization [facility] Address [address] [place] [address] Care Team Providers Care Chemical Research Worker Name Role Phone Naif Mixon MD Primary Care Provider [phone] Encounter Details Date Type Department Care Team (Late st Contact Info) Description 10/19/2024 Lab Requisition [facility] - Main Lab 299 [facility] [place] [address] Niaf Mixon MD [address] [place] [address] Urinary tract infection, site not specified Social [...] reflex microscopic (10/18/2024 12:15 PM EDT) Specific [place] Urine 1.011 1.003 - 1.030 LAB URINALYSIS - AUTOMATED METHOD 10/19/2024 11:31 AM [facility] pH, Urine 7.0 5.0 - 8.0 pH LAB URINALYSIS - AUTOMATED METHOD 10/19/2024 11:31 AM [facility] Leukocytes, Urine Large(A) Negative LAB URINALYSIS - AUTOMATED METHOD 10/19/2024 11:31 AM [facility] Nitrite, Urine Positive(A) Negative LAB URINALYSIS - AUTOMATED METHOD 10/19/2024 11:31 AM [facility] Protein, Urine 30(A) <=Trace mg/dL LAB URINALYSIS - AUTOMATED METHOD 10/19/2024 11:31 AM [facility] Glucose, Urine Negative Negative mg/dL LAB URINALYSIS - AUTOMATED METHOD 10/19/2024 11:31 AM [facility] Ketones, Urine Negative Negative mg/dL LAB URINALYSIS - AUTOMATED METHOD 10/19/2024 11:31 AM [facility] Urobilinogen , Urine 0.2 0.2 - 1.0 mg/dL LAB URINALYSIS - AUTOMATED METHOD 10/19/2024 11:31 AM [facility] Bilirubin, Urine Negative Negative LAB URINALYSIS - AUTOMATED METHOD 10/19/2024 11:31 AM [facility] Blood, Urine Small(A) Negative LAB URINALYSIS - AUTOMATED METHOD 10/19/2024 11:31 AM [facility] RBC, Urine 5.3(H) 0 - 4 /HPF LAB URINALYSIS - AUTOMATED METHOD 10/19/2024 11:31 AM [facility] WBC, Urine 1,103.7(H) 0 - 4 /HPF LAB URINALYSIS - AUTOMATED METHOD 10/19/2024 11:31 AM [facility] Squamous Epithelial, Urine 31 0 - 60 /LPF LAB URINALYSIS - AUTOMATED METHOD 10/19/2024 11:31 AM EDT [facility] Bacteria, Urine Many(A) Negative /HPF LAB URINALYSIS - AUTOMATED METHOD 10/19/2024 11:31 AM EDT [facility] Hyaline Casts, Urine 2.5 0 - 3 /LPF LAB URINALYSIS - AUTOMATED METHOD 10/19/2024 11:31 AM EDT [facility] Urine Urine specimen obtained by clean catch procedure / Unknown Non-blood Collection / Unknown 10/18/2024 12:15 PM EDT 10/19/2024 9:36 AM EDT us Naif Mixon MD LAB URINE ORDERABLES Final R esult [facility] [address] [place] [address], * (ABNORMAL) Culture urine (10/18/2024 12:15 PM EDT) Culture, Urine >100,000 CFU/mL Escherichia coli(A) ANA 10/21/2024 11:21 AM EDT [facility] Urine Urine specimen obtained by clean catch procedure / Unknown Non-blood Collection / Unknown 10/18/2024 12:15 PM EDT 10/19/2024 9:36 AM EDT Narrative [facility] - 10/21/2024 11:21 AM EDT [...] MICROBIOLOGY - GENERAL O RDERABLES Final Result [facility] [address] [place] [address], documented in this encounter Visit Diagnoses Diagnosis Urinary tract infection, site not specified documented in this encounter Care Teams Chemical Research Worker Relationship Specialty Start Date End Date Naif Mixon MD [address] [place] [address] PCP - General Family Medicine 05/20/24 documented as of this encounter
--- OUTSIDE RECORDS SUMMARY | 2025-03-10 12:19 | XMS_ITS | Encounter Summary ---
Author Organization [facility] Address [address] [place] [phone] Care Team Providers Care Family And Divorce Legal Assistant Name Role Phone Naif Mixon MD Primary Care Provider [phone] Encounter Details Date Type Department Care Team (Latest Contact Info) Description 12/02/2024 Lab Requisition [facility] - Main Lab 299 [facility] [place] [address] Naif Mixon MD [address] [place] [address] Schizophrenia, unspecified (CMS/HCC V24, CMS/HCC V28); Other [...] Routine 12/05/2024 8:52 AM EDT Schizophrenia, unspecified ([facility] V24, [facility] V28) Other schizoaffective disorders ([facility] V24, [facility] V28) Major depressive disorder, single episode, moderate ([facility] V24, [facility] V28) documented in this encounter Results * (ABNORMAL) Complete blood count (12/05/2024 8:52 AM EDT) [facility] WBC 3.4(L) 4.8 - 10.8 K/mcL LAB HEMETOLOGY METHOD 12/05/2024 11:16 AM [facility] RBC 3.90 3.80 - 4.80 M/mcL LAB HEMETOLOGY METHOD 12/05/2024 11:16 AM [facility] Hemoglobin 12.2 11.5 - 16.0 g/dL LAB HEMETOLOGY METHOD 12/05/2024 11:16 AM [facility] Hematocrit 37.0 35.0 - 47.0 % LAB HEMETOLOGY METHOD 12/05/2024 11:16 AM [facility] MCV 95.6 79.0 - 98.0 FL LAB HEMETOLOGY METHOD 12/05/2024 11:16 AM [facility] MCH 31.5 27.0 - 32.0 pcg LAB HEMETOLOGY METHOD 12/05/2024 11:16 AM [facility] MCHC 33.0 32.0 - 37.0 g/dL LAB HEMETOLOGY METHOD 12/05/2024 11:16 AM [facility] RDW 12.0 11.0 - 15.0 % LAB HEMETOLOGY METHOD 12/05/2024 11:16 AM [facility] Platelets 195 130 - 400 K/mcL LAB HEMETOLOGY METHOD 12/05/2024 11:16 AM [facility] MPV 9.1 7.0 - 11.0 FL LAB HEMETOLOGY METHOD 12/05/2024 11:16 AM EDT [facility] NRBC 0.0 <1.0 % LAB HEMETOLOGY METHOD 12/05/2024 11:16 AM EDT [facility] NRBC Absolute 0.00 <0.10 K/mcL LAB HEMETOLOGY METHOD 12/05/2024 11:16 AM EDT [facility] Blood Venous blood specimen / Unknown Venipuncture / Unknown 12/05/2024 8:52 AM EDT 12/05/2024 10:07 AM EDT us Naif Mixon MD LAB BLOOD ORDERABLES Final R esult [facility] [address] [place] [address], * (ABNORMAL) Basic metabolic panel (12/05/2024 8:52 AM EDT) Sodium 140 133 - 145 mmol/L LAB CHEMISTRY METHOD 12/05/2024 11:32 AM [facility] Potassium 3.9 3.5 - 5.5 mmol/L LAB CHEMISTRY METHOD 12/05/2024 11:32 AM [facility] Chloride 108 96 - 110 mmol/L LAB CHEMISTRY METHOD 12/05/2024 11:32 AM [facility] CO2 24 21 - 32 mmol/L LAB CHEMISTRY METHOD 12/05/2024 11:32 AM [facility] Anion Gap 8 3 - 11 LAB CHEMISTRY METHOD 12/05/2024 11:32 AM [facility] Glucose 118(H) 70 - 100 mg/dL LAB CHEMISTRY METHOD 12/05/2024 11:32 AM [facility] BUN 17 5 - 25 mg/dL LAB CHEMISTRY METHOD 12/05/2024 11:32 AM EDT [facility] Creatinine 1.03 0.50 - 1.10 mg/dL LAB CHEMISTRY METHOD 12/05/2024 11:32 AM EDT [facility] eGFR 62 >=60 mL/min/1. 73m2 LAB CHEMISTRY METHOD 12/05/2024 11:32 AM EDT [facility] Comment:Calculation based on the Chronic Kidney Disease Epidemiology Collaboration (CKD-EPI) equation refit without adjustment for race. BUN/Creatinine Ratio 16.5 LAB CHEMISTRY METHOD 12/05/2024 11:32 AM T [facility] Calcium 9.0 8.5 - 10.5 mg/dL LAB CHEMISTRY METHOD 12/05/2024 11:32 AM T [facility] Blood Venous blood specimen / Unknown Venipuncture / Unknown 12/05/2024 8:52 AM EDT 12/05/2024 10:07 AM EDT us Naif Mixon MD LAB BLOOD ORDERABLES Final R esult [facility] [address] [place] [address], documented in this encounter Visit Diagnoses Diagnosis Schizophrenia, unspecified ([facility] V24, [facility] V28) Other schizoaffective disorders (CMS/HCC V24, [facility] V28) Major depressive disorder, single episode, moderate ([facility]/H[facility] V24, [facility] V28) Major depressive disorder, single episode, moderate documented in this encounter Care Teams Family And Divorce Legal Assistant Relationship Specialty Start Date End Date Naif Mixon MD [address] [place] [address] PCP - General Family Medicine 05/20/24 documented as of this encounter
--- OUTSIDE RECORDS SUMMARY | 2025-03-10 12:19 | XMS_ITS | Encounter Summary ---
Author Organization [facility] Address [address] [place] [phone] Care Team Providers Care Director Part Name Role Phone Naif Mixon MD Primary Care Provider [phone] Encounter Details Date Type Department Care Team (Latest Contact Info) Description 11/11/2024 Lab Requisition [facility] - Main Lab 299 [facility] [place] [address] Naif Mixon MD [address] [place] [address] Schizophrenia, unspecified (CMS/HCC V24, CMS/HCC V28); Other [...] Routine 11/14/2024 9:56 AM EDT Schizophrenia, unspecified ([facility] V24, [facility] V28) Other schizoaffective disorders ([facility] V24, [facility] V28) Major depressive disorder, single episode, moderate ([facility] V24, [facility] V28) documented in this encounter Results * (ABNORMAL) Complete blood count (11/14/2024 9:56 AM EDT) [facility] WBC 4.5(L) 4.8 - 10.8 K/mcL LAB HEMETOLOGY METHOD 11/14/2024 2:47 PM EDT [facility] RBC 3.70(L) 3.80 - 4.80 M/mcL LAB HEMETOLOGY METHOD [facility] Hemoglobin 11.7 11.5 - 16.0 g/dL LAB HEMETOLOGY METHOD 11/14[facility]2024 [facility] Hematocrit 36.5 35.0 - 47.0 % LAB HEMETOLOGY METHOD 11/14/2024 2:47 PM [facility] MCV 99.2(H) 79.0 - 98.0 FL LAB HEMETOLOGY METHOD 11/14[facility]2024 2[facility] MCH 31.8 27.0 - 32.0 pcg LAB HEMETOLOGY METHOD 11/14/2024 2[facility] MCHC 32.1 32.0 - 37.0 g/dL LAB HEMETOLOGY METHOD 11/14/2024 2:47 PM [facility] RDW 12.0 11.0 - 15.0 % LAB HEMETOLOGY METHOD 11/14/2024 2:47 PM [facility] Platelets 209 130 - 400 K/mcL LAB HEMETOLOGY METHOD 11/14/2024 2[facility] MPV 9.3 7.0 - 11.0 FL LAB HEMETOLOGY METHOD 11/14/2024 2:47 PM EDT [facility] NRBC 0.0 <1.0 % LAB HEMETOLOGY METHOD 11/14/2024 2:47 PM EDT [facility] NRBC Absolute 0.00 <0.10 K/mcL LAB HEMETOLOGY METHOD 11/14/2024 2:47 PM EDT [facility] Blood Venous blood specimen / Unknown 11/14/2024 9:56 AM EDT 11/14/2024 11:47 AM EDT us Naif Mixon MD LAB BLOOD ORDERABLES Final R esult [facility] [address] [place] [address], * (ABNORMAL) Basic metabolic panel (11/14/2024 9:56 AM EDT) Sodium 143 133 - 145 mmol/L LAB CHEMISTRY METHOD 11/14/2024 12:27 PM [facility] Potassium 4.0 3.5 - 5.5 mmol/L LAB CHEMISTRY METHOD 11/14/2024 12:27 PM [facility] Chloride 112(H) 96 - 110 mmol/L LAB CHEMISTRY METHOD 11/14/2024 12:27 PM [facility] CO2 22 21 - 32 mmol/L LAB CHEMISTRY METHOD 11/14/2024 12:27 PM [facility] Anion Gap 9 3 - 11 LAB CHEMISTRY METHOD 11/14/2024 12:27 PM [facility] Glucose 168(H) 70 - 100 mg/dL LAB CHEMISTRY METHOD 11/14/2024 12:27 PM [facility] BUN 24 5 - 25 mg/dL LAB CHEMISTRY METHOD 11/14/2024 12:27 PM EDT [facility] Creatinine 0.91 0.50 - 1.10 mg/dL LAB CHEMISTRY METHOD 11/14/2024 12:27 PM EDT [facility] eGFR 72 >=60 mL/min/1. 73m2 LAB CHEMISTRY METHOD 11/14/2024 12:27 PM EDT [facility] Comment:Calculation based on the Chronic Kidney Disease Epidemiology Collaboration (CKD-EPI) equation refit without adjustment for race. BUN/Creatinine Ratio 26.4 LAB CHEMISTRY METHOD 11/14/2024 12:27 PM EDT [facility] Calcium 8.5 8.5 - 10.5 mg/dL LAB CHEMISTRY METHOD 11/14/2024 12:27 PM T [facility] Blood Venous blood specimen / Unknown Venipuncture / Unknown 11/14/2024 9:56 AM EDT 11/14/2024 11:50 AM EDT us Naif Mixon MD LAB BLOOD ORDERABLES Final R esult [facility] [address] [place] [address], documented in this encounter Visit Diagnoses Diagnosis Schizophrenia, unspecified ([facility] V24, [facility] V28) Other schizoaffective disorders ([facility] V24, [facility] V28) Major depressive disorder, single episode, moderate ([facility] V24, [facility] V28) Major depressive disorder, single episode, moderate documented in this encounter Care Teams Director Part Relationship Specialty Start Date End Date Naif Mixon MD [address] [place] [address] PCP - General Family Medicine 05/20/24 documented as of this encounter
--- OUTSIDE RECORDS SUMMARY | 2025-03-10 12:19 | XMS_ITS | Encounter Summary ---
Author Organization [facility] Address [address] [place] [phone] Care Team Providers Care Lotteries Agent Name Role Phone Naif Mixon MD Primary Care Provider [phone] Encounter Details Date Type Department Care Team (Late st Contact Info) Description 11/24/2024 Lab Requisition [facility] Lab [address] [place] [address] Naif Mixon MD [address] [place] [address] Hypokalemia Social History Tobacco Use Types Packs/Day [...] CHEMISTRY METHOD 11/24/2024 10:34 AM EDT [facility] Potassium 3.9 3.5 - 5.5 mmol/L LAB CHEMISTRY METHOD 11/24/2024 10:34 AM [facility] Chloride 108 96 - 110 mmol/L LAB CHEMISTRY METHOD 11/24/2024 10:34 AM [facility] CO2 25 21 - 32 mmol/L LAB CHEMISTRY METHOD 11/24/2024 10:34 AM [facility] Anion Gap 6 3 - 11 LAB CHEMISTRY METHOD 11/24/2024 10:34 AM [facility] Glucose 117(H) 70 - 100 mg/dL LAB CHEMISTRY METHOD 11/24/2024 10:34 AM [facility] BUN 17 5 - 25 mg/dL LAB CHEMISTRY METHOD 11/24/2024 10:34 AM [facility] Creatinine 0.86 0.50 - 1.10 mg/dL LAB CHEMISTRY METHOD 11/24/2024 10:34 AM [facility] eGFR 77 >=60 mL/min/1. 73m2 LAB CHEMISTRY METHOD 11/24/2024 10:34 AM [facility] Comment:Calculation based on the Chronic Kidney Disease Epidemiology Collaboration (CKD-EPI) equation refit without adjustment for race. BUN/Creatinine Ratio 19.8 LAB CHEMISTRY METHOD 11/24/2024 10:34 AM [facility] Calcium 9.3 8.5 - 10.5 mg/dL LAB CHEMISTRY METHOD 11/24/2024 10:34 AM [facility] Blood Venous blood specimen / Unknown Venipuncture / Unknown 11/24/2024 7:00 AM EDT 11/24/2024 9:19 AM EDT us Naif Mixon MD LAB BLOOD ORDERABLES Final R esult [facility] [address] [place] [address], * (ABNORMAL) Complete blood count (11/24/2024 7:00 AM EDT) [facility] WBC 3.5(L) 4.8 - 10.8 K/mcL LAB HEMETOLOGY METHOD 11/24/2024 10:08 AM [facility] RBC 3.80 3.80 - 4.80 M/mcL LAB HEMETOLOGY METHOD 11/24/2024 10:08 AM [facility] Hemoglobin 12.3 11.5 - 16.0 g/dL LAB HEMETOLOGY METHOD 11/24/2024 10:08 AM [facility] Hematocrit 36.8 35.0 - 47.0 % LAB HEMETOLOGY METHOD 11/24/2024 10:08 AM [facility] MCV 96.8 79.0 - 98.0 FL LAB HEMETOLOGY METHOD 11/24/2024 10:08 AM [facility] MCH 32.4(H) 27.0 - 32.0 pcg LAB HEMETOLOGY METHOD 11/24/2024 10:08 AM [facility] MCHC 33.4 32.0 - 37.0 g/dL LAB HEMETOLOGY METHOD 11/24/2024 10:08 AM [facility] RDW 12.1 11.0 - 15.0 % LAB HEMETOLOGY METHOD 11/24/2024 10:08 AM [facility] Platelets 188 130 - 400 K/mcL LAB HEMETOLOGY METHOD 11/24/2024 10:08 AM [facility] MPV 9.1 7.0 - 11.0 FL LAB HEMETOLOGY METHOD 11/24/2024 10:08 AM [facility] NRBC 0.0 <1.0 % LAB HEMETOLOGY METHOD 11/24/2024 10:08 AM [facility] NRBC Absolute 0.00 <0.10 K/mcL LAB HEMETOLOGY METHOD 11/24/2024 10:08 AM EDT [facility] Blood Venous blood specimen / Unknown Venipuncture / Unknown 11/24/2024 7:00 AM EDT 11/24/2024 9:19 AM EDT us Naif Mixon MD LAB BLOOD ORDERABLES Final R esult [facility] [address] [place] [address], documented in this encounter Visit Diagnoses Diagnosis Hypokalemia Hypopotassemia documented in this encounter Care Teams Lotteries Agent Relationship Specialty Start Date End Date Naif Mixon MD [address] [place] [address] PCP - General Family Medicine 05/20/24 documented as of this encounter
--- OUTSIDE RECORDS SUMMARY | 2025-03-10 12:19 | XMS_ITS | Encounter Summary ---
Author Organization [facility] Address [address] [place] [phone] Care Team Providers Care Aircraft Detail Draftsperson Name Role Phone Naif Mixon MD Primary Care Provider [phone] Encounter Details Date Type Department Care Team (Late st Contact Info) Description 10/07/2024 Lab Requisition [facility] - Main Lab [address] [facility] [place] [address] Naif Mixon MD [address] [place] [address] Schizophrenia, unspecified (CMS/HCC V24, CMS/HCC V28); Major [...] mmol/L LAB CHEMISTRY METHOD 10/10/2024 3:23 PM [facility] Potassium 4.2 3.5 - 5.5 mmol/L LAB CHEMISTRY METHOD 10/10/2024 3:23 PM [facility] Chloride 107 96 - 110 mmol/L LAB CHEMISTRY METHOD 10/10/2024 3:23 PM [facility] CO2 25 21 - 32 mmol/L LAB CHEMISTRY METHOD 10/10/2024 3:23 PM [facility] Anion Gap 9 3 - 11 LAB CHEMISTRY METHOD 10/10/2024 3:23 PM [facility] Glucose 110(H) 70 - 100 mg/dL LAB CHEMISTRY METHOD 10/10/2024 3:23 PM [facility] BUN 29(H) 5 - 25 mg/dL LAB CHEMISTRY METHOD 10/10/2024 3:23 PM [facility] Creatinine 0.96 0.50 - 1.10 mg/dL LAB CHEMISTRY METHOD 10/10/2024 3:23 PM [facility] eGFR 68 >=60 mL/min/1. 73m2 LAB CHEMISTRY METHOD 10/10/2024 3:23 PM [facility] Comment:Calculation based on the Chronic Kidney Disease Epidemiology Collaboration (CKD-EPI) equation refit without adjustment for race. BUN/Creatinine Ratio 30.2 LAB CHEMISTRY METHOD 10/10/2024 3:23 PM [facility] Calcium 9.8 8.5 - 10.5 mg/dL LAB CHEMISTRY METHOD 10/10/2024 3:23 PM [facility] Blood Venous blood specimen / Unknown Venipuncture / Unknown 10/10/2024 10:20 AM EDT 10/10/2024 1:02 PM EDT Naif Mixon MD LAB BLOOD ORDERABLES Final R esult [facility] [address] [place] [address], [place] [phone] * (ABNORMAL) Complete blood count (10/10/2024 10:20 AM EDT) WBC 4.7(L) 4.8 - 10.8 K/mcL LAB HEMETOLOGY METHOD 10/10/2024 2:03 PM EDT [facility] RBC 3.80 3.80 - 4.80 M/mcL LAB HEMETOLOGY METHOD 10/10/2024 2:03 PM EDT [facility] Hemoglobin 12.2 11.5 - 16.0 g/dL LAB HEMETOLOGY METHOD 10/10/2024 2:03 PM EDT [facility] Hematocrit 37.0 35.0 - 47.0 % LAB HEMETOLOGY METHOD 10/10/2024 2:03 PM EDT [facility] MCV 96.6 79.0 - 98.0 FL LAB HEMETOLOGY METHOD [facility] MCH 31.9 27.0 - 32.0 pcg LAB HEMETOLOGY METHOD 10/10/2024 2:03 PM EDT [facility] MCHC 33.0 32.0 - 37.0 g/dL LAB HEMETOLOGY METHOD 10/10/2024 2:03 PM EDT [facility] RDW 12.8 11.0 - 15.0 % LAB HEMETOLOGY METHOD 10/10/2024 2:03 PM EDT [facility] Platelets 182 130 - 400 K/mcL LAB HEMETOLOGY METHOD 10/10/2024 2:03 PM EDT [facility] MPV 9.2 7.0 - 11.0 FL LAB HEMETOLOGY METHOD 10/10/2024 2:03 PM EDT [facility] NRBC 0.0 <1.0 % LAB HEMETOLOGY METHOD 10/10/2024 2:03 PM EDT [facility] NRBC Absolute 0.00 <0.10 K/mcL LAB HEMETOLOGY METHOD 10/10/2024 2:03 PM EDT [facility] Blood Venous blood specimen / Unknown Venipuncture / Unknown 10/10/2024 10:20 AM EDT 10/10/2024 1:06 PM EDT Naif Mixon MD LAB BLOOD ORDERABLES Final R esult [facility] [address] [place] [address], documented in this encounter Visit Diagnoses Diagnosis Schizophrenia, unspecified (CMS/HCC V24, CMS/HCC V28) Major depressive disorder, single episode, moderate (CMS/HCC V24, CMS/HCC V28) Major depressive disorder, single episode, moderate documented in this encounter Care Teams Aircraft Detail Draftsperson Relationship Specialty Start Date End Date Naif Mixon MD [address] [place] [address] PCP - General Family Medicine 05/20/24 documented as of this encounter
--- OUTSIDE RECORDS SUMMARY | 2025-03-10 12:19 | XMS_ITS | Encounter Summary ---
Author Organization [facility] Address [address] [place] [address] Phone Care Team Providers Care Sheet Manufacturing Supervisor Name Role Phone Stacey Reis MD Primary Care Provider [phone] Khurram Ruelas MD Unavailable + Khurram Ruelas MD Unavailable + Stacey Reis MD Unavailable [phone] Waylon Crespo MD Unavailable [phone] Waylon Crespo MD Unavailable [phone] Stacey Reis MD Unavailable [phone] Beryl Shirley PIE BAKERY LABORER Unavailable [phone] Kaleigh Adams PIE BAKERY LABORER Unavailable [phone] [facility] Catrina Mcclendon PIE BAKERY LABORER Unavailable + [phone] Romain Paulson PIE BAKERY LABORER Unavailable [email or web address] Yomi Bass MD Unavailable [phone] Keny Govea PIE BAKERY LABORER Unavailable [phone] Unknown, Unknown Primary Care Provider Yomi Gray MD Unavailable [phone] Alba Harmon MD Unavailable [phone] Pcp, Unknown Primary Care Provider Unavailabl e Encounter Details Date Type Department Care Team (Late st Contact Info) Description 09/29/2018 Procedure Pass [facility] END[facility] DEPT [address] [place] [address] Social History Tobacco Use Types Packs/Day Years [...] EST [facility] [address] [place] [address] documented as of this encounter Visit Diagnoses Not on filedocumented in this encounter Additional Health Concerns Assessment Noted Time PHQ-2 Depression Total Score: 0 03/25/20 17 1:47 PM EDT documented as of this encounter Care Teams Sheet Manufacturing Supervisor Relationship Specialty Start Date End Date Stacey Reis MD [email or web address] PCP - General 03/11/14 02/16/22 Khurram Ruelas MD [address] [place] [phone] [email or web address] PCP - Resident PCP 12/01/16 11/29/18 Waylon Crespo MD [address] [place] [address] [phone] [place] [address] [email or web address] PCP - Resident PCP 11/30/1811/29 Yomi Bass MD [address] [place] [address] [address] [place] [address] [email or web address] PCP - Resident PCP 11/30/21 02/16/22 Unknown, German, PCP - General 03/03/22 11/16/23 Pcp, Unknown PCP - General 11/17/23 Khurram Ruelas MD [address] [place] [phone] [email or web address] Attributed Provider 01/10/1712/11 Stacey Reis MD [address] [place] [address] [email or web address] Insurance Assigned Provider 09/18/1810/09/18 Waylon Crespo MD [address] [place] [address] [address] [place] [address] [email or web address] Partners Attributed Provider 01/08/19 07/12/22 Stacey Reis MD [address] [place] [address] [email or web address] Insurance Assigned Provider 09/14/1909/13/22 Beryl Shirley LICSW [address] [place] [phone] [email or web address] Social Work 01/24/20 07/16/20 Kaleigh Adams LICSW [address] [place] [phone] [email or web address] Representative 06/06/20 07/31/20 [facility] Catrina Mcclendon LICSW [address] [place] [address] [email or web address] Social Work 07/17/20 07/18/21 Romain Paulson, [facility] [address] [place] [address] [email or web address] Social Work 07/19/21 Keny Govea, [facility] [address] [place] [address] [email or web address] Work 01/03/22 Yomi Bass MD 15 [facility] [address] [place] [address] [email or web address] Partners Attributed Provider 07/12/22 06/13/23 Alba Harmon MD [address] [facility], 10th Floor, [address] [place] [address] [address] [place] [address] [email or web address] Insurance Assigned Provider 09/13/22 documented as of this encounter Additional Source Comments The information contained in this document represents components of the legal health record. It is not the complete legal health record.[facility]
--- OUTSIDE RECORDS SUMMARY | 2025-03-10 12:19 | XMS_ITS | Encounter Summary ---
Author Organization [facility] Address [address] [place] [phone] Care Team Providers Care Language Translator Name Role Phone Naif Mixon MD Primary Care Provider [phone] Encounter Details Date Type Department Care Team (Late st Contact Info) Description 11/18/2024 Lab Requisition [facility] - Main Lab [address] [facility] [place] [address] Naif Mixon MD [address] [place] [address] Schizophrenia, unspecified (CMS/HCC V24, CMS/HCC V28); Major [...] Complete blood count (11/21/2024 5:58 AM EDT) [facility] WBC 5.3 4.8 - 10.8 K/mcL LAB HEMETOLOGY METHOD 11/21/2024 11:16 AM [facility] RBC 3.90 3.80 - 4.80 M/mcL LAB HEMETOLOGY METHOD 11/21/[facility]24 [facility] Hemoglobin 12.8 11.5 - 16.0 g/dL LAB HEMETOLOGY METHOD 11/21/2024 11:16 AM [facility] Hematocrit 38.9 35.0 - 47.0 % LAB HEMETOLOGY METHOD 11/21/2024 11:16 AM [facility] MCV 98.7(H) 79.0 - 98.0 FL LAB HEMETOLOGY METHOD 11/21/2024 11:16 AM [facility] MCH 32.5(H) 27.0 - 32.0 pcg LAB HEMETOLOGY METHOD 11/21/2024 11:16 AM [facility] MCHC 32.9 32.0 - 37.0 g/dL LAB HEMETOLOGY METHOD 11/21/2024 11:16 AM [facility] RDW 11.9 11.0 - 15.0 % LAB HEMETOLOGY METHOD 11/21/2024 11:16 AM [facility] Platelets 168 130 - 400 K/mcL LAB HEMETOLOGY METHOD 11/21/2024 11:16 AM [facility] MPV 9.1 7.0 - 11.0 FL LAB HEMETOLOGY METHOD 11/21/2024 11:16 AM [facility] NRBC 0.0 <1.0 % LAB HEMETOLOGY METHOD 11/21/2024 11:16 AM [facility] NRBC Absolute 0.00 <0.10 K/mcL LAB HEMETOLOGY METHOD 11/21/2024 11:16 AM [facility] Blood Venous blood specimen / Unknown Venipuncture / Unknown 11/21/2024 5:58 AM EDT 11/21/2024 10:48 AM EDT Naif Mixon MD LAB BLOOD ORDERABLES Final R esult [facility] [address] [place] [address], * (ABNORMAL) Basic metabolic panel (11/21/2024 5:58 AM EDT) Sodium 140 133 - 145 mmol/L LAB CHEMISTRY METHOD 11/21/2024 1:17 PM [facility] Potassium 3.6 3.5 - 5.5 mmol/L LAB CHEMISTRY METHOD 11/21/2024 1:17 PM [facility] Chloride 108 96 - 110 mmol/L LAB CHEMISTRY METHOD 11/21/2024 1:17 PM [facility] CO2 24 21 - 32 mmol/L LAB CHEMISTRY METHOD 11/21/2024 1:17 PM [facility] Anion Gap 8 3 - 11 LAB CHEMISTRY METHOD 11/21/2024 1:17 PM [facility] Glucose 115(H) 70 - 100 mg/dL LAB CHEMISTRY METHOD 11/21/2024 1:17 PM [facility] BUN 20 5 - 25 mg/dL LAB CHEMISTRY METHOD 11/21/2024 1:17 PM [facility] Creatinine 0.84 0.50 - 1.10 mg/dL LAB CHEMISTRY METHOD 11/21/2024 1:17 PM [facility] eGFR 80 >=60 mL/min/1. 73m2 LAB CHEMISTRY METHOD 11/21/2024 1:17 PM EDT [facility] Comment:Calculation based on the Chronic Kidney Disease Epidemiology Collaboration (CKD-EPI) equation refit without adjustment for race. BUN/Creatinine Ratio 23.8 LAB CHEMISTRY METHOD 11/21/2024 1:17 PM EDT [facility] Calcium 8.9 8.5 - 10.5 mg/dL LAB CHEMISTRY METHOD 11/21/2024 1:17 PM EDT [facility] Blood Venous blood specimen / Unknown Venipuncture / Unknown 11/21/2024 5:58 AM EDT 11/21/2024 1:17 PM EDT us Naif Mixon MD LAB BLOOD ORDERABLES Final R esult [facility] [address] [place] [address], documented in this encounter Visit Diagnoses Diagnosis Schizophrenia, unspecified (CMS/HCC V24, CMS/HCC V28) Major depressive disorder, single episode, moderate (CMS/HCC V24, CMS/HCC V28) Major depressive disorder, single episode, moderate documented in this encounter Care Teams Language Translator Relationship Specialty Start Date End Date Naif Mixon MD [address] [place] [address] PCP - General Family Medicine 05/20/24 documented as of this encounter
--- OUTSIDE RECORDS SUMMARY | 2025-03-10 12:19 | XMS_ITS | Encounter Summary ---
Author Organization [facility] Address [address] [place] [address] Care Team Providers Care Linseed Cake Trimmer Name Role Phone Naif Mixon MD Primary Care Provider [phone] Encounter Details Date Type Department Care Team (Late st Contact Info) Description 11/04/2024 Lab Requisition [facility] - Main Lab [address] [facility] [place] [address] Naif Mixon MD [address] [place] [address] Schizophrenia, unspecified (CMS/HCC V24, CMS/HCC V28); Major [...] Complete blood count (11/07/2024 5:59 AM EDT) [facility] WBC 4.7(L) 4.8 - 10.8 K/mcL LAB HEMETOLOGY METHOD 11/07/2024 11:41 AM [facility] RBC 4.00 3.80 - 4.80 M/mcL LAB HEMETOLOGY METHOD 11/07/2024 11:41 AM [facility] Hemoglobin 12.9 11.5 - 16.0 g/dL LAB HEMETOLOGY METHOD 11/07/2024 11:41 AM [facility] Hematocrit 39.3 35.0 - 47.0 % LAB HEMETOLOGY METHOD 11/07/2024 11:41 AM [facility] MCV 98.0 79.0 - 98.0 FL LAB HEMETOLOGY METHOD 11/07/2024 11:41 AM [facility] MCH 32.2(H) 27.0 - 32.0 pcg LAB HEMETOLOGY METHOD 11/07/2024 11:41 AM [facility] MCHC 32.8 32.0 - 37.0 g/dL LAB HEMETOLOGY METHOD 11/07/2024 11:41 AM [facility] RDW 12.1 11.0 - 15.0 % LAB HEMETOLOGY METHOD 11/07/2024 11:41 AM [facility] Platelets 226 130 - 400 K/mcL LAB HEMETOLOGY METHOD 11/07/2024 11:41 AM [facility] MPV 8.6 7.0 - 11.0 FL LAB HEMETOLOGY METHOD 11/07/2024 11:41 AM [facility] NRBC 0.0 <1.0 % LAB HEMETOLOGY METHOD 11/07/2024 11:41 AM EDT [facility] NRBC Absolute 0.00 <0.10 K/mcL LAB HEMETOLOGY METHOD 11/07/2024 11:41 AM [facility] Blood Venous blood specimen / Unknown Venipuncture / Unknown 11/07/2024 5:59 AM EDT 11/07/2024 10:36 AM EDT Naif Mixon MD LAB BLOOD ORDERABLES Final R esult [facility] [address] [place] [address], * (ABNORMAL) Basic metabolic panel (11/07/2024 5:59 AM EDT) Sodium 141 133 - 145 mmol/L LAB CHEMISTRY METHOD 11/07/2024 12:59 PM [facility] Potassium 3.8 3.5 - 5.5 mmol/L LAB CHEMISTRY METHOD 11/07/2024 12:59 PM [facility] Chloride 108 96 - 110 mmol/L LAB CHEMISTRY METHOD 11/07/2024 12:59 PM [facility] CO2 24 21 - 32 mmol/L LAB CHEMISTRY METHOD 11/07/2024 12:59 PM [facility] Anion Gap 9 3 - 11 LAB CHEMISTRY METHOD 11/07/2024 12:59 PM [facility] Glucose 103(H) 70 - 100 mg/dL LAB CHEMISTRY METHOD 11/07/2024 12:59 PM [facility] BUN 19 5 - 25 mg/dL LAB CHEMISTRY METHOD 11/07/2024 12:59 PM [facility] Creatinine 0.98 0.50 - 1.10 mg/dL LAB CHEMISTRY METHOD 11/07/2024 12:59 PM [facility] eGFR 66 >=60 mL/min/1. 73m2 LAB CHEMISTRY METHOD 11/07/2024 12:59 PM EDT [facility] Comment:Calculation based on the Chronic Kidney Disease Epidemiology Collaboration (CKD-EPI) equation refit without adjustment for race. BUN/Creatinine Ratio 19.4 LAB CHEMISTRY METHOD 11/07/2024 12:59 PM EDT [facility] Calcium 9.1 8.5 - 10.5 mg/dL LAB CHEMISTRY METHOD 11/07/2024 12:59 PM EDT [facility] Blood Venous blood specimen / Unknown Venipuncture / Unknown 11/07/2024 5:59 AM EDT 11/07/2024 10:36 AM EDT us Naif Mixon MD LAB BLOOD ORDERABLES Final R esult [facility] [address] [place] [address], documented in this encounter Visit Diagnoses Diagnosis Schizophrenia, unspecified (CMS/HCC V24, CMS/HCC V28) Major depressive disorder, single episode, moderate (CMS/HCC V24, CMS/HCC V28) Major depressive disorder, single episode, moderate documented in this encounter Care Teams Linseed Cake Trimmer Relationship Specialty Start Date End Date Naif Mixon MD [address] [place] [address] PCP - General Family Medicine 05/20/24 documented as of this encounter
== END 2025-03-10 11:51 | disposition home or self-care (01) ==
LOC: HO.HMCFMS 11:01
PROVIDERS: Visit Provider Student in an Organized Health Care Education/Training Program
DX: G25.82 Stiff-man syndrome (principal); L30.9 Dermatitis, unspecified; R23.8 Other skin changes; F22 Delusional disorders; F43.12 Post-traumatic stress disorder, chronic; F43.22 Adjustment disorder with anxiety; F32.A Depression, unspecified

== ENCOUNTER 2025-03-10 11:00 | Outpatient (REF) | payer MEDICARE, MEDICAID, SELFPAY ==
[2025-03-10 18:27] LABS: MANUAL DIFF FLAG NO
[2025-03-10 18:39] LABS: Total Hemoglobin (HGBA1C) 3841.3100 umol/L
[2025-03-10 18:41] LABS: Hematocrit 44.5 % (37.0-47.0); Hemoglobin 15.2 g/dl (12.0-16.0); Imm Gran Abs Auto 0.03 X10*3/uL (0.00-0.03); Imm Gran Pct Auto 0.4 % (0.0-0.4); Lymphocytes Absolute Auto 1.0 X10*3/uL (1.2-4.9); Mean Corpuscular HGB Conc 34.2 g/dl (31.0-35.0); Mean Corpuscular Hemoglobin 30.8 pg (27.0-33.0); Mean Corpuscular Volume 90.3 fL (80.0-98.0); NRBC Abs Auto 0.000 X10*3/uL (0.0-0.012); NRBC Pct Auto 0.0 /100WBC (0.0-0.2); Platelet Count 267 X10*3/uL (160-400); Red Blood Count 4.93 X10*6/uL (4.20-5.50); White Blood Count 7.5 X10*3/uL (4.8-10.8)
[2025-03-10 19:07] LABS: Alanine Aminotransferase < 6 U/L (0-31); Albumin Level 4.7 g/dL (3.5-5.0); Alkaline Phosphatase 140 U/L (39-117); Anion Gap 18 (12-20); Aspartate Amino Transferase 26 U/L (5-31); Blood Urea Nitrogen 11 mg/dL (9-16); Calcium 9.5 mg/dL (8.4-10.2); Carbon Dioxide 24 mmol/L (22-29); Chloride 102 mmol/L (96-108); Cholesterol 191 mg/dL (<200); Estimated Glomerular Filt Rate 59; HDL Cholesterol 43 mg/dL (>40); Potassium 3.4 mmol/L (3.3-5.1); Sodium 141 mmol/L (135-145); Total Protein 7.1 g/dL (6.5-8.0); Triglycerides 106 mg/dL (<150)
[2025-03-10 19:21] LABS: Folate 11.6 ng/mL (> or = 4.0); Vitamin B12 438 pg/mL (200-900)
[2025-03-10 20:47] LABS: Free T4 (Free Thyroxine) 1.57 ng/dL (0.71-1.85)
[2025-03-11 04:31] LABS: HBS Num1 0.00 mIU/mL (0-7.99); HBsAGNum1 0.33 S/CO (0.00-0.99); HIV Num 1 0.04 S/CO (0.00-0.99); Hepatitis B Surface Antigen Negative (Negative); ~HepC Num1 0.06 S/CO (0.00-0.79); ~Hepatitis B Surface Antibody NONREACTIVE (Nonreactive); ~Hepatitis C Antibody Nonreactive (Nonreactive)
[2025-03-16 15:33] LABS: VITAMIN D (1,25 OH) D3 43 pg/mL; Vit D (1,25-Dihydroxy) Total 43 pg/mL (18-72); Vitamin D (1,25 OH) D2 <8 pg/mL
== END 2025-03-10 11:01 | disposition home or self-care (01) ==
LOC: HO.HKASLDS 11:00
PROVIDERS: PCP Student in an Organized Health Care Education/Training Program; Visit Provider Student in an Organized Health Care Education/Training Program
DX: Z76.89 Persons encountering health services in other specified circumstances (principal); Z13.1 Encounter for screening for diabetes mellitus; L30.9 Dermatitis, unspecified; F22 Delusional disorders; R25.1 Tremor, unspecified; R23.8 Other skin changes; F43.12 Post-traumatic stress disorder, chronic; F43.22 Adjustment disorder with anxiety; F32.A Depression, unspecified; I10 Essential (primary) hypertension; F17.200 Nicotine dependence, unspecified, uncomplicated; Z71.6 Tobacco abuse counseling
CPT/HCPCS: 36415; 80053; 80061; 82607; 82652; 82746; 83036; 84439; 84443; 85025; 86706; 86803; 87340; 87389; 99212

== ENCOUNTER 2025-03-24 11:02 | Outpatient (AMB) | payer MEDICARE, MEDICAID, SELFPAY ==
[2025-03-24 11:06] VITALS: BP 127/71; PULSE 110; RESP 16; TEMP 37.1; O2SAT 94; BMI 30.6
--- NOTE | 2025-03-24 11:06 | MHC.PC.OV ---
Vital Signs 03/24/25 11:06 Height 5 ft 4 in Weight 178 lb 4 oz BMI 30.6 BP 127/71 Blood Pressure Location Lt brachial Position Sitting Respiration 16 Pulse 110 H Pulse Source Pulse Oximeter Temp 98.7 F Temp Source Oral Pulse Oximetry (%) 94 Oxygen Delivery Method Room Air Intake Visit Reasons: 2 wk f/u Intake Note: establish care Nurse College Required: No Accompanied by: Self / Same As Patient Allergies albuterol Adverse Reaction (Verified 03/24/25 11:07) Palpitations Tobacco use date assessed: 03/24/25 Dental Screening Dental Screen Date: 03/24/25 Did you have a dental visit in the last 12 months?: Yes Did you have a dental problem in the last 6 months where you did not have access to dental care?: No Was dental information given to patient?: Patient has dentist HPI HPI Comments History of Present Illness Details Consent Patient was informed and verbally consented to the use of an ambient scribe for clinic note documentation during this visit. History of Present Illness The patient is a 59-year-old female presenting with gastrointestinal symptoms including diarrhea and nausea/vomiting. Gastrointestinal symptoms: The patient reports diarrhea persisting for two weeks without resolution, despite self-treatment with electrolytes and water. The symptoms began abruptly and have remained constant in intensity. Associated symptoms include new onset nausea and vomiting, which have been concerning to the patient. The impact on the patient's daily life has included changes to her diet, focusing on eating applesauce and rice to manage symptoms. There is no reported increase in bowel movement frequency or change in the character of stools aside from the onset of diarrhea and vomiting. 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 neurology referral has been providing impending an appointment Chronic Obstructive Pulmonary Disease: The patient indicates no acute respiratory issues or exacerbations. Pulmonary function has reportedly been stable. patient reports she used to use an inhaler but has not required 1 because she has not wheezed Chronic Kidney Disease Stage 3A: A history of CKD Stage 3A is noted with a GFR of 59. No new symptoms related to renal function were reported. Prediabetes: The patient acknowledges awareness of slightly elevated glucose levels, maintaining a hemoglobin A1c of 6.0% from previous evaluations. No new symptoms were reported. Subclinical Hyperthyroidism: The patient has a history of low TSH with normal free T4, but no symptoms or changes were noted for discussion. Surgical History: - Cholecystectomy (gallbladder removal) approximately 20 years ago Medications: - Baclofen 10 mg for muscle stiffness - Diazepam 5 mg for muscle spasms - Gabapentin 600 mg for muscle stiffness - Melatonin 6 mg for insomnia - Olanzapine 20 mg for psychiatric history - Trazodone 50 mg for insomnia - Triamcinolone 1% for skin application Social History: - The patient mentioned limited mobility and dependence on her son and [employer] for transportation. - Diet currently consists mainly of applesauce and rice, primarily due to gastrointestinal symptoms. - The patient reports challenges in accessing places due to lack of personal transportation. Family History: - Son involved in a serious car accident; no other family history of medical, behavioral, or psychiatric issues noted during this visit. Diagnostic Results: - Labs: White blood cells, red blood cells, hemoglobin within normal limits - Labs: Sodium, potassium, renal function within normal limits - Labs: GFR of 59, indicating CKD stage 3A - Labs: Random glucose 138 mg/dL, hemoglobin A1c 6.0% indicating prediabetes - Labs: Alkaline phosphatase 140, decreased from 166 in 2021 - Labs: LDL cholesterol 127 mg/dL, above cutoff of 100 mg/dL - Labs: TSH 0.22, low with normal free T4 of 1.57, indicating subclinical hyperthyroidism Review of Systems - Gastrointestinal: Reports nausea, vomiting, and diarrhea over the last two weeks - Fever/Chills: Denies fever, reports chills - Endocrine: Denies any thyroid-related symptoms 10-point ROS reviewed and negative except as noted in HPI Past Medical History - Stiff person syndrome - Chronic obstructive pulmonary disease - Chronic kidney disease stage 3A - Previous diagnosis of lupus (stated as incorrect by the patient during the visit) - Psychiatric history Health Maintenance - Discussion on cholesterol management and dietary impacts was held, emphasizing reduction of LDL levels and carbohydrate intake management for prediabetes. - Emphasis on regular thyroid function testing to monitor subclinical hyperthyroidism. - The patient was informed about the importance of maintaining hydration and normal electrolyte levels. Physical Exam General: Well-appearing, in no acute distress. Vital signs: Within normal limits. HEENT: Normocephalic, atraumatic. PERRLA, EOMI. Conjunctiva clear, sclera anicteric. Oropharynx clear, mucous membranes moist. TMs intact bilaterally. Neck: Supple, no lymphadenopathy, no thyromegaly, no JVD or carotid bruits. Cardiovascular: RRR, normal S1/S2, no murmurs, rubs, or gallops. Peripheral pulses 2+ and symmetric. No edema. Respiratory: Lungs clear to auscultation bilaterally, no wheezes, rales, or rhonchi. Normal effort. Abdomen: Soft, non-tender, non-distended. Normoactive bowel sounds. No hepatosplenomegaly, no masses. MSK: Full range of motion, no joint swelling or deformity. Normal gait. Skin: Warm, dry, intact. No rashes, lesions, or pallor. Neuro: Alert and oriented x3. Cranial nerves II-XII intact. Strength 5/5 throughout. Sensation intact. Reflexes 2+ symmetric. Normal coordination and gait. Psych: Appropriate mood and affect. Normal judgment and insight. Plan 1. Stiff Person Syndrome - Continue current medication regimen including baclofen and diazepam. 2. Systemic Lupus Erythematosus - patient denies having this diagnosis and wants it removed from her record 3. Chronic Obstructive Pulmonary Disease referral to assistant community director with a PFT 4. Chronic Kidney Disease Stage 3A - Monitor renal function and manage associated risks related to cardiovascular health and chronic diseases. 5. Prediabetes - Recommended dietary management, emphasizing reduced carbohydrate intake. 6. Subclinical Hyperthyroidism - Regular follow-ups for thyroid function tests discussed, monitoring without immediate intervention. 7. Gastrointestinal Symptoms - Discussed the importance of hydration and suggested seeking acute care for potential fluid or electrolyte imbalance. Discussion Notes I informed the patient of the necessity for acute evaluation due to persistent diarrhea and vomiting, which poses a risk for dehydration and imbalance. Review covered the importance of balancing carbohydrate intake for prediabetes management, and close monitoring of thyroid levels given the subclinical hyperthyroidism. The patient expressed concern over medication management, particularly related to psychiatric medications, leading to a decision to wait on increasing Trazodone dosage until after a behavioral health assessment. Referrals to Neurology and Behavioral Health were issued, ensuring understanding that communication will be initiated from respective departments. Patient Instructions - Maintain adequate fluid intake and electrolytes to prevent dehydration. - Consider visiting an emergency department for acute symptoms if they persist or worsen. - Balance carbohydrate intake and follow dietary recommendations for managing blood sugar levels. - Follow up as scheduled for thyroid function tests and monitor at home for any new or changing symptoms. - Wait for calls from Neurology and Behavioral Health regarding appointment scheduling. Medical Decision Making The patient's prolonged gastrointestinal symptoms were concerning for possible dehydration and warrant close monitoring with potential referral for emergency evaluation if symptoms persist. The patient's ongoing history of Stiff Person Syndrome is managed with the current medication regimen, with no change at this time. Despite previous inconsistent psychiatric management, a strategic plan emphasizing stability and routine follow-up in behavioral health was established, understanding the psychiatric background and the medication requirements. The stable nature of CKD Stage 3A suggests continued routine monitoring, combined with active management of cardiovascular risk due to elevated LDL cholesterol levels. The patient's subclinical hyperthyroidism remains without pharmacological intervention due to absence of symptoms; regular lab monitoring will be pursued to track any changes. All recommendations are consistent with a comprehensive approach targeting continuity of care in chronic disease management and emergent care needs. Total time spent caring for the patient today was 30 minutes. This includes time spent before the visit reviewing the chart, time spent documenting, and time spent reviewing laboratory results, diagnostic imaging, medications, performing a medically necessary evaluation, counseling on diagnoses, care coordination. [facility] Medical History (Updated 03/11/25 @ 11:04 by Mike Boyle MD) Tremors of nervous system Dermatitis No home medical services Depression Bowel perforation Lupus Hypertension Stiff-man syndrome Pneumonia COPD (chronic obstructive pulmonary disease) Delusional disorder Surgical History History of mandibular surgery History of cholecystectomy Family History Paternal Grandmother TB (pulmonary tuberculosis) Father FH: HTN (hypertension) Social History Household Members: Family Household Members Other:: son, gf, grandchildren Housing: House Do you presently have visiting nurse or other home services: No (By history) Alcohol intake: current Alcohol intake frequency: does not drink Patient Tobacco Use Status: Current everyday Tobacco user Tobacco use type: Cigarette Cigarette Packs Per Day: 5 e-Cigarette/Vaping Use: Currently Using Second Hand Smoke Exposure: No Substance Use Type: Marijuana, Other and Caffiene service: No Current occupational status: retired and disabled Sexual orientation: Straight/Heterosexual Cognitive needs: No Hearing needs: No Vision needs: Yes (rx glasses) Questionnaire Thrive Questionnaire Date Thrive assessed: 03/24/25 I am a: Patient What is your living situation today?: I have a steady place to live Within the past 12 months, did the food you bought not last and you didn't have the money to get more?: Often true Within the past 12 months, did you worry whether your food would run out before you got money to buy more?: Often true Do you have trouble paying for medicines?: No Do you have trouble getting transportation to medical appointments?: Yes Do you have trouble paying your heating and electricity bill?: No Do you have trouble taking care of your child, family member or friend?: Yes Are you currently unemployed and looking for a job?: No Are you interested in more education?: No Please select the resources that you would like help with: Daily support THRIVE Score: 3 AUDIT C Alcohol Use Questionnaire (AUDIT-C) 1. How often do you have a drink containing alcohol?: Never 3. How often do you have six or more drinks on one occasion?: Never Total Score: 0 PATRICIA-7 AMB Questionnaire PATRICIA-7 Date PATRICIA - 7 assessed: 03/24/25 Source: Developed by Drs. Jason Solano, Tomasa Mott, Yordy Palencia and colleagues, with an educational kala from [employer]. Physical exam (Primary Care) Vital Signs: Last Vital Signs Temp 98.7 F 03/24/25 11:06 Pulse 110 H 03/24/25 11:06 Resp 16 03/24/25 11:06 BP 127/71 03/24/25 11:06 Pulse Ox 94 03/24/25 11:06 Oxygen Delivery Method Room Air 03/24/25 11:06 BMI result Body Mass Index 30.6 Tobacco/Smoking Status: Tobacco use Status Tobacco use date assessed 03/24/25 03/24/25 11:12 Patient Tobacco Use Status Current everyday Tobacco 03/24/25 11:12 Tobacco use type Cigarette 03/24/25 11:12 e-Cigarette/Vaping Use Currently Using 03/24/25 11:12 Thrive Assessment: Date of Thrive Assessment Date Thrive assessed 03/24/25 03/24/25 11:12 Coding Level of Care Code Est Pt Level 4 (02919) Diagnoses COPD (chronic obstructive pulmonary disease) J44.9 Stiff-man syndrome G25.82 Tremors of nervous system R25.1 CKD stage 3a, GFR 45-59 ml/min N18.31 Prediabetes R73.03 Subclinical hyperthyroidism E05.90 GI symptoms R19.8 Assessment & Plan Assessment & Plan (1) COPD (chronic obstructive pulmonary disease): Code(s): J44.9 - Chronic obstructive pulmonary disease, unspecified Category: Medical (2) Stiff-man syndrome: Code(s): G25.82 - Stiff-man syndrome Category: Medical (3) Tremors of nervous system: Code(s): R25.1 - Tremor, unspecified Category: Medical (4) CKD stage 3a, GFR 45-59 ml/min: Code(s): N18.31 - Chronic kidney disease, stage 3a (5) Prediabetes: Code(s): R73.03 - Prediabetes (6) Subclinical hyperthyroidism: Code(s): E05.90 - Thyrotoxicosis, unspecified without thyrotoxic crisis or storm (7) GI symptoms: Code(s): R19.8 - Other specified symptoms and signs involving the digestive system and abdomen Plan Orders: Referrals Pulmonology Referral J44.9 - Chronic obstructive pulmonary disease, unspecified, R25.1 - Tremor, unspecified Neurology Referral G25.82 - Stiff-man syndrome, R25.1 - Tremor, unspecified Behavioral Health Referral F22 - Delusional disorders, F43.12 - Post-traumatic stress disorder, chronic, F43.22 - Adjustment disorder with anxiety Medications: New albuterol sulfate 90 mcg/actuation (Ventolin HFA) 2 puffs inhalation Q6H PRN 8.5 grams 0RF shortness of breath or wheezing
== END 2025-03-24 11:46 | disposition home or self-care (01) ==
LOC: HO.HMCFMS 11:03
PROVIDERS: PCP Student in an Organized Health Care Education/Training Program; Visit Provider Student in an Organized Health Care Education/Training Program
DX: J44.9 Chronic obstructive pulmonary disease, unspecified (principal); G25.82 Stiff-man syndrome; R25.1 Tremor, unspecified; N18.31 Chronic kidney disease, stage 3a; R73.03 Prediabetes; E05.90 Thyrotoxicosis, unspecified without thyrotoxic crisis or storm; R19.8 Other specified symptoms and signs involving the digestive system and abdomen

== ENCOUNTER → 2025-03-24 11:02 | Outpatient (BNVA) | payer MEDICARE, MEDICAID, SELFPAY | PROVIDERS: PCP Student in an Organized Health Care Education/Training Program; Visit Provider Student in an Organized Health Care Education/Training Program | DX: J44.9 Chronic obstructive pulmonary disease, unspecified (principal); G25.82 Stiff-man syndrome; N18.31 Chronic kidney disease, stage 3a; R73.03 Prediabetes; E05.90 Thyrotoxicosis, unspecified without thyrotoxic crisis or storm; R19.8 Other specified symptoms and signs involving the digestive system and abdomen; F22 Delusional disorders; F43.12 Post-traumatic stress disorder, chronic; F43.22 Adjustment disorder with anxiety | CPT/HCPCS: 99212 ==

== ENCOUNTER 2025-04-14 10:57 | Outpatient (AMB) | payer MEDICARE, MEDICAID, SELFPAY ==
--- OUTSIDE RECORDS SUMMARY | 2008-08-28 23:00 | XMS_ITS | Encounter Summary ---
Author Organization [facility] Address [address] [facility] [address] [place] [address] Phone Care Team Providers Care Evs Manager Name Role Phone Unavailable Primary Care Provider Unavailabl e Encounter Details Date Type Department Care Team ([facility] st Contact Info) Description 08/29/2008 Hospital Encounter [facility] [address] [place] [address] Stacey Reis MD [address] [place] [address] [place] [phone] [email or web address] Social History Tobacco Use Types Packs/Day Years Used Date Smoking Tobacco: Every Day Cigarettes Smokeless Tobacco: Never Comments:2 per day Alcohol Use Standard Drinks/Week Comments Yes 0 (1 standard drink = 0.6 oz pur e alcohol) 2 per month - seldom Child or Family Care Answer Date Record ed Do you have problems with on e of the following making it difficult for you to work, study, or receive health care? No 04/24/2021 Education Answer Date Recorded Are you interested in more education? Not on jeanine e 04/29/2023 Are you concerned about learning? Not on file 04/29/2023 No 04/29/2023 No 04/29/2023 Food Answer Date Recorded Within the past 6 months we worried whether our food would run out before we got money to buy more. I choose not to answer 04/24/2021 Within the past 6 months the food we bought just didn't last and we didn't have enough money to get more. Sometimes True 04/24/2021 Residential Stability Answer Date Recor ded What is your housing situation today? I have melania bob 04/24/2021 How many times have you move d in the past 12 months? Zero (I did not move) 04/24/2021 Paying for Meds Answer Date Recorded Do you have trouble paying for medicines? No 04/24/2021 Paying Utility Bills Answer Date Record ed Do you have trouble paying your heating or elect ricity bill? Yes 04/24/2021 Transportation Answer Date Recorded Has the lack of transportati on kept you from medical appointments or from getting medications? No 04/24/2021 Unemployment Answer Date Recorded Are you currently unemployed or working on a part-time or temporary basis, and looking for work? No 04/24/2021 Digital Access Answer Date Recorded No 11/03/2022 No 11/03/2022 Reliable internet access at home? Not on file 11/03/2022 Device with a working camera? Not on file Comments No Sex and Gender Information Value Date Recorded Sex Assigned at Not on file Legal Sex Female 8:11 PM EST Gender Identity Not on file Sexual Orientation Not on file documented as of this encounter Plan of Treatment Upcoming Encounters Date Type Department Care Team (Late st Contact Info) Description 05/16/2025 6:00 AM EST [facility] [address] [place] [phone] documented as of this encounter Procedures Procedure Name Priority Date/Time Associated Diagnosis Comments BI US BREAST OUTSIDE (NO INTERPRETATION) Routine 08/29/2008 12:00 AM EDT documented in this encounter Results * US Breast Outside (No Interpretation) (08/29/2008 12:00 AM EDT) Narrative [facility] IMG INTERFACES - 09/05/2020 1:42 PM EDT This study is for PACS storage only and not for interpretation. us Stacey Reis MD IMG OUTSIDE IMAGING W/OUT IN TERPRETATION Final Result [facility] IMG INTERFACES documented in this encounter Visit Diagnoses Not on filedocumented in this encounter Additional Source Comments The information contained in this document represents components of the legal health record. It is not the complete legal health record.[facility]
--- OUTSIDE RECORDS SUMMARY | 2008-08-28 23:00 | XMS_ITS | Encounter Summary ---
Author Organization [facility] Address [address] [facility] [address] [place] [address] Phone Care Team Providers Care Quantitative Software Engineer Name Role Phone Unavailable Primary Care Provider Unavailabl e Encounter Details Date Type Department Care Team ([facility] st Contact Info) Description 08/29/2008 Hospital Encounter [facility] 55 [place] [address] Stacey Reis MD [address] [place] [address] [place] [phone] Social History Tobacco Use Types Packs/Day Years [...] you interested in more education? Not on jenaine e 04/29/2023 Are you concerned about learning? [...] AM EST [facility] [address] [place] [address] documented as of this encounter Procedures Procedure Name Priority Date/Time Associated Diagnosis Comments BI MAMMOGRAM OUTSIDE (NO INTERPRETATION) Routine 08/29/2008 12:00 AM EDT documented in this encounter Results * Mammogram Outside (No Interpretation) (08/29/2008 12:00 AM EDT) Narrative [facility]G INTERFACES - 09/05/2020 1:42 PM EDT This study is for PACS storage only and not for interpretation. us Stacey Reis MD IMG OUTSIDE IMAGING W/OUT IN TERPRETATION Final Result [facility]G INTERFACES documented in this encounter Visit Diagnoses Not on filedocumented in this encounter Additional Source Comments The information contained in this document represents components of the legal health record. It is not the complete legal health record.[facility]
--- OUTSIDE RECORDS SUMMARY | 2008-09-10 23:00 | XMS_ITS | Encounter Summary ---
Author Organization [facility] Address [address] [facility] [address] [place] [address] Phone Care Team Providers Care Publicity Manager Name Role Phone Unavailable Primary Care Provider Unavailabl e Encounter Details Date Type Department Care Team ([facility] st Contact Info) Description 09/11/2008 Hospital Encounter [facility] 55 [place] [address] Stacey Reis MD 55 [facility] [address] [place] [address] [email or web address] Social History Tobacco Use Types Packs/Day Years [...] AM EST [facility] [address] [place] [address] documented as of this encounter Procedures Procedure Name Priority Date/Time Associated Diagnosis Comments BI MAMMOGRAM OUTSIDE (NO INTERPRETATION) Routine 09/11/2008 12:00 AM EDT documented in this encounter Results * Mammogram Outside (No Interpretation) (09/11/2008 12:00 AM EDT) Narrative [facility] IMG INTERFACES - 09/05/2020 1:43 PM EDT This study is for PACS storage only and not for interpretation. us Stacey Reis MD IMG OUTSIDE IMAGING W/OUT IN TERPRETATION Final Result [facility] IMG INTERFACES documented in this encounter Visit Diagnoses Not on filedocumented in this encounter Additional Source Comments The information contained in this document represents components of the legal health record. It is not the complete legal health record.[facility]
--- NOTE | 2025-04-14 10:59 | A.OFFPC_ITS ---
Vital Signs 04/14/25 11:06 Height 5 ft 4 in Weight 177 lb BMI 30.4 BP 128/70 Blood Pressure Location Rt brachial Position Sitting Respiration 18 Pulse 94 Pulse Source Monitor Temp 98.1 F Temp Source Oral Pulse Oximetry (%) 97 Oxygen Delivery Method Room Air Intake Visit Reasons: 3 week follow up Intake Note: follow up Accompanied by: Self / Same As Patient Allergies albuterol Adverse Reaction (Verified 04/14/25 11:05) Palpitations Medication List - Last Reconciled 04/14/25 by Mike Boyle MD albuterol sulfate 90 mcg/actuation (Ventolin HFA) 2 puffs inhalation Q6H PRN baclofen 10 mg PO TID diazepam 5 mg PO DAILY PRN gabapentin 600 mg PO BID melatonin 6 mg (2 x 3 mg) PO BEDTIME PRN midodrine 10 mg PO TIDWM nystatin 1 appl topical BID olanzapine 20 mg (2 x 10 mg) PO BEDTIME trazodone 50 mg PO BEDTIME PRN Tobacco use date assessed: 03/24/25 Dental Screening Dental Screen Date: 03/24/25 HPI HPI Comments History of Present Illness Details History of Present Illness The patient is a 59-year-old female presenting for a general check-up, evaluation of a persistent rash, and new-onset back pain. Unspecified skin rash: The patient has a persistent rash that has not improved with triamcinolone cream, which she has been applying twice daily. The rash is non-pruritic. Located under the folds of her breasts Back pain: The patient reports new onset of back pain that has been present for a couple of weeks. The pain can be severe enough to take her breath away. She has not taken any medication for the pain. Pending Referrals: The patient has pending referrals to multiple specialties. She has a scheduled appointment with pulmonary in June. She is awaiting a call back from neurology regarding her tremors. She has not yet heard from behavioral health. Medications: - Gabapentin - Baclofen - Olanzapine - Trazodone - Midodrine, taken as needed for low blo od pressure - Melatonin - Diazepam, for anxiety and sleep Social History: - Home Care: The patient is awaiting [facility] services but has not yet received the information packet. Health Maintenance - The patient has been referred to [place], with an appointment scheduled for June. - A referral to neurology is pending; th e patient is awaiting a call back. - A referral to behavioral health is radha packer; the patient has not been contacted yet. - A follow-up visit is scheduled in one month. [facility] Medical History (Updated 03/11/25 @ 11:04 by Mike Boyle MD) Tremors of nervous system Dermatitis No home medical services Depression Bowel perforation Lupus Hypertension Stiff-man syndrome Pneumonia COPD (chronic obstructive pulmonary disease) Delusional disorder Surgical History History of mandibular surgery History of cholecystectomy Family History Paternal Grandmother TB (pulmonary tuberculosis) Father FH: HTN (hypertension) Social History Household Members: Family Household Members Other:: son, gf, grandchildren Housing: House Do you presently have visiting nurse or other home services: No (By history) Alcohol intake: current Alcohol intake frequency: does not drink Patient Tobacco Use Status: Current everyday Tobacco user Tobacco use type: Cigarette Cigarette Packs Per Day: 5 e-Cigarette/Vaping Use: Currently Using Second Hand Smoke Exposure: No Substance Use Type: Marijuana, Other and Caffiene service: No Current occupational status: retired and disabled Sexual orientation: Straight/Heterosexual Cognitive needs: No Hearing needs: No Vision needs: Yes (rx glasses) Questionnaire Thrive Questionnaire Date Thrive assessed: 02/24/25 I am a: Patient What is your living situation today?: I have a steady place to live Within the past 12 months, did the food you bought not last and you didn't have the money to get more?: Often true Within the past 12 months, did you worry whether your food would run out before you got money to buy more?: Often true Do you have trouble paying for medicines?: No Do you have trouble getting transportation to medical appointments?: Yes Do you have trouble paying your heating and electricity bill?: No Do you have trouble taking care of your child, family member or friend?: Yes Are you currently unemployed and looking for a job?: No Are you interested in more education?: No Please select the resources that you would like help with: Daily support THRIVE Score: 3 PATRICIA-7 AMB Questionnaire PATRICIA-7 Date PATRICIA - 7 assessed: 03/24/25 Source: Developed by Drs. Jason Solano, Tomasa Mott, Yordy Palencia and colleagues, with an educational kala from [employer]. Review of Systems Narrative Review of Systems - Dermatologic: Reports a persistent rash. - Denies pruritus. - Musculoskeletal: Reports back pain for a couple of weeks, which takes her breath away. - Neurological: Reports her head doesn't stop , contributing to difficulty sleeping. - Psychiatric: See neurological. 10-point ROS reviewed and negative except as noted in HPI Physical exam (Primary Care) Vital Signs: Last Vital Signs Temp 98.1 F 04/14/25 11:06 Pulse 94 04/14/25 11:06 Resp 18 04/14/25 11:06 BP 128/70 04/14/25 11:06 Pulse Ox 97 04/14/25 11:06 Oxygen Delivery Method Room Air 04/14/25 11:06 BMI result Body Mass Index 30.4 Tobacco/Smoking Status: Tobacco use Status Tobacco use date assessed 03/24/25 04/14/25 11:02 Patient Tobacco Use Status Current everyday Tobacco 04/14/25 11:02 Tobacco use type Cigarette 04/14/25 11:02 e-Cigarette/Vaping Use Currently Using 04/14/25 11:02 Thrive Assessment: Date of Thrive Assessment Date Thrive assessed 02/24/25 04/14/25 11:02 Narrative Physical Exam General: Well-appearing, in no acute distress. Vital signs: Within normal limits. HEENT: Normocephalic, atraumatic. PERRLA, EOMI. Conjunctiva clear, sclera anicteric. Oropharynx clear, mucous membranes moist. TMs intact bilaterally. Neck: Supple, no lymphadenopathy, no thyromegaly, no JVD or carotid bruits. Cardiovascular: RRR, normal S1/S2, no murmurs, rubs, or gallops. Peripheral pulses 2+ and symmetric. No edema. Respiratory: Lungs clear to auscultation bilaterally, no wheezes, rales, or rhonchi. Normal effort. Abdomen: Soft, non-tender, non-distended. Normoactive bowel sounds. No hepatosplenomegaly, no masses. MSK: Full range of motion, no joint swelling or deformity. Normal gait. Skin: Warm, dry, intact. Rash present. No lesions or pallor. Neuro: Alert and oriented x3. Cranial nerves II-XII intact. Strength 5/5 throughout. Sensation intact. Reflexes 2+ symmetric. Normal coordination and gait. Tremors generalized Psych: Appropriate mood and affect. Normal judgment and insight. 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.82 Candidiasis, intertrigo B37.2 Chronic lower back pain M54.50; G89.29 Assessment & Plan Assessment & Plan (1) Tremors of nervous system: Code(s): R25.1 - Tremor, unspecified Category: Medical (2) COPD (chronic obstructive pulmonary disease): Code(s): J44.9 - Chronic obstructive pulmonary disease, unspecified Category: Medical (3) Stiff-man syndrome: Code(s): G25.82 - Stiff-man syndrome Category: Medical (4) Candidiasis, intertrigo: Code(s): B37.2 - Candidiasis of skin and nail (5) Chronic lower back pain: Code(s): M54.50 - Low back pain, unspecified; G89.29 - Other chronic pain Plan Consent Patient was informed and verbally consented to the use of an ambient scribe for clinic note documentation during this visit. Plan 1. Intertrigo - Discontinue triamcinolone cream as it has been ineffective. - Prescribe Nystatin ointment to be applied twice daily. 2. Back Pain - Continue taking baclofen for pain. - Prescribe Ibuprofen 800 mg. 3. Medication Reconciliation And Refills - Refill all current medications including gabapentin, baclofen, olanzapine, trazodone, melatonin, and diazepam. - Send all prescriptions to [facility] in [place]. 4. Follow-Up - Patient to follow up in the clinic in one month. - Patient advised to call with any problems before the next scheduled visit. Discussion Notes I reviewed the patient's persistent rash and explained that since the triamcinolone cream was not helping, we will stop it and try Nystatin ointment twice a day. For her new back pain, I prescribed ibuprofen 800mg and advised her to continue her baclofen. We reconciled her medication list, and I sent refills for all her chronic medications to her preferred pharmacy. We discussed the status of her outstanding referrals to pulmonary, neurology, and behavioral health, and the pending setup of home services. I recommended she return for a follow-up visit in one month but to call if any issues arise sooner. Patient Instructions - Stop using the triamcinolone cream for your rash. - Apply the newly prescribed nystatin ointment to the rash twice a day. - Take ibuprofen 800 mg for your back pain. - You should also take your baclofen for the pain. - application support developer all your medications from the [facility] in [place] this afternoon. - Your appointment with the lung doctor (pulmonary) is in June. - You are waiting for the nerve doctor (neurology) and behavioral health to call you back. - Please schedule a follow-up appointment to see me in one month. - If you have any problems before your next appointment, please call the office. Medical Decision Making The patient is a 59-year-old female presenting for a check-up with multiple active issues, including a persistent non-pruritic rash and new-onset back pain. The rash has failed to respond to topical triamcinolone, suggesting it is not a simple inflammatory dermatitis; a fungal etiology is considered, prompting a trial of topical Nystatin. The patient's acute back pain, which is severe enough to cause shortness of breath, warrants analgesia; Ibuprofen 800 mg was prescribed in addition to her existing baclofen. A medication reconciliation was performed, and all chronic medications were refilled. The patient's care coordination is complex, with pending referrals to pulmonary, neurology, and behavioral health, as well as an awaited setup for home care services. Due to the multiple active complaints and complex care coordination, a close follow-up in one month is clinically indicated. Total time spent caring for the patient today was 20 minutes. This includes time spent before the visit reviewing the chart, time spent documenting, and time spent reviewing laboratory results, diagnostic imaging, medications, performing a medically necessary evaluation, counseling on diagnoses, care coordination. Medications: New ibuprofen 800 mg PO Q8H 30 tabs 0RF ibuprofen 800 mg PO Q8H 30 tabs 0RF nystatin 1 appl topical BID 30 grams 0RF nystatin 1 appl topical BID 30 grams 0RF Refilled baclofen 10 mg PO TID 90 tabs 0RF gabapentin 600 mg PO BID 180 tabs 0RF trazodone 50 mg PO BEDTIME PRN 90 tabs 0RF Insomnia melatonin 6 mg (2 x 3 mg) PO BEDTIME PRN 180 tabs 0RF Insomnia diazepam 5 mg PO DAILY PRN 30 tabs 0RF anxiety Discontinued triamcinolone acetonide 0.1% Discontinued Reason: Doctor's Order 1 appl topical BID 30 grams 0RF L30.9 - Dermatitis, unspecified
[2025-04-14 11:06] VITALS: BP 128/70; PULSE 94; RESP 18; TEMP 36.7; O2SAT 97; BMI 30.4
--- OUTSIDE RECORDS SUMMARY | 2025-04-14 13:10 | XMS_ITS | Encounter Summary ---
Author Organization [facility] Address [address] [place] [address] Phone Care Team Providers Care Miter Saw Operator Name Role Phone Stacey Reis MD Primary Care Provider + [phone] Waylon Crespo MD Unavailable [phone] Waylon Crespo MD Unavailable [phone] Stacey Reis MD Unavailable [phone] Romain Bolanos ORACLE HYPERION CONSULTANT Unavailable MARLENE [email or web address] Yomi Bass MD Unavailable [phone] Keny Govea ORACLE HYPERION CONSULTANT Unavailable [phone] Unknown, Unknown Primary Care Provider Yomi Gray MD Unavailable [phone] Alba Harmon MD Unavailable [phone] Pcp, Unknown Primary Care Provider Unavailabl e Encounter Details Date Type Department Care Team (Late st Contact Info) Description 11/07/2021 Telephone [facility] [place] [facility] [address] [place], [place] [phone] Stacey Reis MD [address] [place] [address] [place] [address] [email or web address] Social History Tobacco Use Types Packs/Day Years [...] high school, GED, job training, learning the [place] language, technical skills, or developing parenting skills)? [...] EST [facility] [address] [place] [address] documented as of this encounter Goals Goal [...] documented as of this encounter Care Teams Miter Saw Operator Relationship Specialty Start Date End Date Stacey Reis MD [email or web address] PCP - General 03/11/14 02/16/22 Waylon Crespo MD 55 [facility] 7730 [place] [address] [email or web address] PCP - Resident PCP 11/30/1811/29 Yomi Bass MD [address] [place] [address] 730 [place] [address] [email or web address] PCP - Resident PCP 11/30/21 02/16/22 Unknown, German, PCP - General 03/03/22 11/16/23 Pcp, Unknown PCP - General 11/17/23 Waylon Crespo MD 55 [facility] [address] [place] [address] [email or web address] Attributed Provider 01/08/19 07/12/22 Stacey Reis MD 55 [facility] 605 [place] [address] [email or web address] Insurance Assigned Provider 09/14/1909/13/22 Romain Bolanos LICSW 55 [facility] 605 [place] [address] [email or web address] PHCM Production Control Planner 07/19/2112/07 Keny Govea, ORACLE HYPERION CONSULTANT [address] [place] [address] [email or web address] PHCM Production Control Planner 01/03/2205/13/22 Yomi Bass MD 15 [facility] 730 [place] [address] [email or web address] Partners Attributed Provider 07/12/22 06/13/23 Alba Harmon MD 50 [facility], 10th Floor, [address] [place] [address] [address] [place] [address] [email or web address] Insurance Assigned Provider 09/13/22 documented as of this encounter Additional Source Comments The information contained in this document represents components of the legal health record. It is not the complete legal health record.[facility]
--- OUTSIDE RECORDS SUMMARY | 2025-04-14 13:10 | XMS_ITS | Encounter Summary ---
Author Organization [facility] Address [address] [place] [address] Phone Care Team Providers Care Supervisor Inspection Department Name Role Phone Stacey Reis MD Primary Care Provider [phone] Stacey Reis MD Unavailable [phone] Khurram Ruelas MD Unavailable + Khurram Ruelas MD Unavailable + Stacey Reis MD Unavailable [phone] Waylon Crespo MD Unavailable + Waylon Crespo MD Unavailable + Stacey Reis MD Unavailable [phone] Beryl Shirley LIVESTOCK BREEDER Unavailable [phone] Kaleigh Adams LIVESTOCK BREEDER Unavailable [phone] [facility] Catrina Mcclendon LIVESTOCK BREEDER Unavailable + [phone] Romain Paulson LIVESTOCK BREEDER Unavailable MARLENE [email or web address] Yomi Bass MD Unavailable [phone] Keny Govea LIVESTOCK BREEDER Unavailable [phone] Unknown, Unknown Primary Care Provider Yomi Gray MD Unavailable [phone] Alba Harmon MD Unavailable [phone] Pcp, Unknown Primary Care Provider Unavailabl e Encounter Details Date Type Department Care Team (Late st Contact Info) Description 02/17/[address] [address] [place] [address] Social History Tobacco Use Types Packs/Day Years [...] EST [facility] [address] [place] [address] documented as of this encounter Visit Diagnoses Not on filedocumented in this encounter Additional Health Concerns Assessment Noted Time PHQ-2 Depression Total Score: 0 03/25/20 17 1:47 PM EDT documented as of this encounter Care Teams Supervisor Inspection Department Relationship Specialty Start Date End Date Stacey Reis MD [email or web address] PCP - General 03/11/14 02/16/22 Khurram Ruelas MD [address] [place] [address] [email or web address] PCP - Resident PCP 12/01/16 11/29/18 Waylon Crespo MD 55 [facility] [address] [place] [address] [email or web address] PCP - Resident PCP 11/30/1811/29 Yomi Bass MD 15 [facility] 730 [place] [address] [email or web address] PCP - Resident PCP 11/30/21 02/16/22 Unknown, Unknown, PCP - General 03/03/22 11/16/23 Pcp, Unknown PCP - General 11/17/23 Stacey Reis MD [address] [place] [address] [place] [address] [email or web address] Insurance Assigned Provider 09/20/16 Khurram Ruelas MD [address] [place] [address] [email or web address] Partners Attributed Provider 01/10/1712/11 Stacey Reis MD [address] [place] [address] [email or web address] Insurance Assigned Provider 09/18/1810/09/18 Waylon Crespo MD [address] [place] [address] [address] [place] [address] [email or web address] Partners Attributed Provider 01/08/19 07/12/22 Stacey Reis MD [address] [place] [address] [email or web address] Insurance Assigned Provider 09/14/1909/13/22 Beryl Shirley [address] [address] [email or web address] PHCM Radar Engineer 01/24/20 07/16/20 Kaleigh Adams LIVESTOCK BREEDER [address] [place] [phone] [email or web address] Radar Engineer 06/06/20 07/31/20 [place]ott Danelle Catrina [facility] [address] [place] [phone] [email or web address] Radar Engineer 07/17/20 07/18/21 Romain Paulson, [address] [address] [email or web address]@[email or web address] Radar Engineer 07/19/2112/07 Keny Govea, [facility] [address] [place] [address] [email or web address] Radar Engineer 01/03/2205/13/22 Yomi Bass MD [address] [place] [address] 7[address] [place] [address] [email or web address] Partners Attributed Provider 07/12/22 06/13/23 Alba Harmon MD [address] [place] [address], 10th Floor, [address] [place] [address] 10 [place] [address] [email or web address] Insurance Assigned Provider 09/13/22 documented as of this encounter Additional Source Comments The information contained in this document represents components of the legal health record. It is not the complete legal health record.[facility]
--- OUTSIDE RECORDS SUMMARY | 2025-04-14 13:10 | XMS_ITS | Encounter Summary ---
Author Organization [facility] Address [address] [place] [address] Phone Care Team Providers Care Rubber Goods Assembler Name Role Phone Stacey Reis MD Primary Care Provider + [phone] Waylon Crespo MD Unavailable [phone] Waylon Crespo MD Unavailable [phone] Stacey Reis MD Unavailable [phone] Beryl Shirley AERIAL LINEMAN Unavailable [phone] Kaleigh Adams AERIAL LINEMAN Unavailable [phone] Catrina Lee AERIAL LINEMAN Unavailable + [phone] Romain Bolanos AERIAL LINEMAN Unavailable MARLENE [email or web address] Yomi Bass MD Unavailable [phone] Keny Govea AERIAL LINEMAN Unavailable [phone] Unknown, Unknown Primary Care Provider Yomi Gray MD Unavailable [phone] Alba Harmon MD Unavailable [phone] Pcp, Unknown Primary Care Provider Unavailabl e Encounter Details Date Type Department Care Team (Late st Contact Info) Description 05/22/2020 Procedure Pass [facility] [address] [facility] [address] [place], [place] [id number] Social History Tobacco Use Types Packs/Day Years [...] EST [facility] [address] [place] [address] documented as of this encounter Goals Goal [...] documented as of this encounter Care Teams Rubber Goods Assembler Relationship Specialty Start Date End Date Stacey Reis MD [email or web address] PCP - General 03/11/14 02/16/22 Waylon Crespo MD 55 [facility] [address] [place] [address] [email or web address] PCP - Resident PCP 11/30/1811/29 Yomi Bass MD 15 [facility] 730 [place] [address] [email or web address] PCP - Resident PCP 11/30/21 02/16/22 German Porter MD PCP - General 03/03/22 11/16/23 Pcp, Unknown PCP - General 11/17/23 Waylon Crespo MD 55 [facility] [address] [place] [address] [email or web address] Partners Attributed Provider 01/08/19 07/12/22 Stacey Reis MD 55 [facility] 605 [place] [address] [email or web address] Insurance Assigned Provider 09/14/1909/13/22 Beryl Shirley, [address] [address] [email or web address] Industrial Court Magistrate 01/24/20 07/16/20 Kaleigh Adams [facility] [address] [place], [place] [phone] [email or web address] Industrial Court Magistrate 06/06/20 07/31/20 Catrina Lee [facility] [address] [place] [phone] [email or web address] Industrial Court Magistrate 07/17/20 07/18/21 Romain Bolanos, [address] [address] [email or web address] Industrial Court Magistrate 07/19/2112/07 Keny Govea, [facility] [address] [place] [address] [email or web address] Industrial Court Magistrate 01/03/2205/13/22 Yomi Bass MD 15 [facility] 730 [place] [address] [email or web address] Partners Attributed Provider 07/12/22 06/13/23 Alba Harmon MD [address] [place] [address], 10th Floor, [address] [facility]50 10 [place] [address] [email or web address] Insurance Assigned Provider 09/13/22 documented as of this encounter Additional Source Comments The information contained in this document represents components of the legal health record. It is not the complete legal health record.[facility]
--- OUTSIDE RECORDS SUMMARY | 2025-04-14 13:10 | XMS_ITS | Clinical Summary ---
Author Organization [facility] Address [address] [place] [address] Phone Care Team Providers Care Vp Analytics Name Role Phone Pcp, Unknown Primary Care Provider Unavailabl e Allergies Active Allergy Reactions Criticality Noted Date Comments Albuterol Other (See Comments) 06/03/2012 hyperactivity, worsening of tremor; Medications ipratropium (ATROVENT HFA) 17 mcg/actuation inhaler Inhale 2 puffs into the lungs 4 (four) times a day. 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 She reports many episodes of strange occurrences with phones, computers, and cars where the technology won't work and is being redirected to another food and beverage server. She cites this as a reason that we cannot reliably communicate with her by phone. Documented in a telephone encounter, ~ 6 months ago, a police sergeant precinct in [place] reached out with concerns regarding this same behavior as Pancho had been frequently contacting the police department for help with her electronics being hacked. She reports that every phone she tries is unusable including landlines and thinks there is someone or some alliance party responsible. She doesn't not,as far as I [...] unable to do so (Beryl offered a [employer] issued phone but Pancho reported she already had one which experienced the same issues). Beryl will try to set Pancho up with reliable transportation to clinic visits through [employer]. Unfortunately, in-person visits are the only method [...] a psychiatrist though prefers someone closer to [place]. 08/29/20 Our [facility] P team was able to generate [...] Pancho and Sidra will meet with our manager social services Padmaja after our meeting to discuss local [...] a psychiatrist if close to her in [place]. Will refer to [facility] and hope they can communicate with her through her phone [phone] which she reports is working as of [...] unable to do so (Beryl offered a [employer] issued phone but Pancho reported she already had one which experienced the same issues). Beryl will try to set Pancho up with reliable transportation to clinic visits through [employer]. Unfortunately, in-person visits are the only method [...] why her PFTs are not appearing in [employer]. If the data was lost will have [...] had trouble loading it onto the Patient [place], but was concerned about bleeding problems. She [...] well as her half-sister who lives in [place], with whom she talks on the phone [...] med and referral to psychiatry Atherosclerosis of navajo co ronary artery of navajo heart without angina pectoris 01/30/2016 Overview (06/20/2019): [...] to her pharmacy. She recently saw her fire prevention bureau captain at an outside facility who also strongly [...] my previous note. Her anxiety a main courtesy van driver of multitudes of her symptoms. She [...] reflux Recent negative stress tests with outside fire prevention bureau captain (per her report) INTERVAL: --Still reports she [...] (03/27/2017): Gastroesophageal reflux disease. Saw [facility] complaint operator Dr. Perez in 2008 for chest burning [...] PM EDT): Patient instructed to go to [facility] for first Zoster installment, she agreed. Will [...] LMTCB on her mobile voicemail. Tatiana Aguayo [facility] Access [id number] Rn Results ~ tel # ~ looking [...] canceling several appointments. She has been undergoin p1pnzdy rituxan infusion with Dr. Peterson and reports significant improvement in her symptoms with the infusion. She continues to take her clonazepam and diazepam intermittently (please see the anxiety section for more detail) 06/2017: (last visit with earth science technician Dr. Peterson): The diagnosis of stiff- person [...] Chilango Lorenzana who has an office in [place]. Our office has been attempting to send [...] able to connect with the neurologist in [place]. I discussed with Pancho and Sidra the need for her to have a subspecialist follow her tremor as this is not something that should be managed by a PCP. 10/03/20 She reports that she has successfully set up appointment with a neurologist at [facility]. The first appointment is in the coming weeks. 11/13/20 Reportedly has not yet connected with a neurologist. The neurologist she initially wanted was not accepting patients. Her sister has taken charge of trying to find a neurologist. [facility] has an external referral. 04/24/21 She [...] been diligently looking for a neurologist in [facility] but haven't found one yet. They are trying for a third one in [place]. Pancho knows of a neurologist at [facility], Dr. Peterson, that does deal with stiff [...] AM EDT): Being taken care of by [facility] for this Assessment & Plan (05/20/2021 11:37 AM EST): Her and her father are checking in with another neurologist in [place]. If she is unable to find a neurologist in [facility] we agreed she will need to come to someone in [place]. In 2019 reached out to movement disorder specialist at , Dr. Mike, who agreed to see Pancho, however, at that time Pancho had insurmountable issues with telephones/communication which interfered with establishing care. I gave her the number for Dr. Hurst's office if she cannot establish with the neurologist in [place]. Regarding management of akasthesia will increase propranolol [...] try to find a neurologist would be [facility] because it is about 20 minutes away from them and within the partner system so that I can read their notes. I will refer to [facility] and Pancho says she will go by [...] she's having trouble finding a neurologist at [facility]. This is still a priority. Her sister has my contact information. Pancho will talk with her sister about it this week. I also offered that if we cannot find someone at [facility], we can try for neurology here. [...] Chilango Lorenzana who has an office in [place]. Our office has been attempting to send [...] Plan to loop in Dr. Peterson, her earth science technician, as well as place a neurology E [...] financial/legal reasons but at the time reports [phone] is the best number to reach her. [...] neurologist who specializes in GAD65 disorders at [facility], who has agreed to see Pancho. Plan to connect with Pancho by phone tomorrow to discuss steps moving forward, realizing that she lives in [facility] and commute to [place] is challenging. For now, plan to keep [...] MD; Stacey Reis MD. Comment: Saw Dr. oRgers on 09/06/13 for a ganglion cyst on [...] her family's life being hacked by unknown alliance party (documented elsewhere), which may well be contributing [...] down to 113. 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 Prominent coarse tremor [...] Flovent BID - Patient will obtain [facility] record to fax over to our office. [...] EST [facility] [address] [address] Health Maintenance Due Date Last Done Comments [...] 02/17/2018 HEPATITIS C SCREENING Completed 05/17/2024 , 05/17/2024, 05/17/2024, Additional history exists HEPATITIS A VACCINES Aged [...] Care Plan Chronic Condition Self-Management Beryl Worthington, STAFF SERVICES MANAGER Medical Devices Implanted Type Area Senior Sales Associate Device Identifier Shelf Expiration Date Model / [...] 9:44 AM EST) HCV ANTIBODY Negative Negative [facility] Comment:Antibodies to HCV no t detected. Does not exclude the possibility of exposure to HCV. 05/17/2024 9:44 AM EST 05/17/2024 12:40 PM EST Result [facility] Marilyn Porter MD LAB BLOOD BKR ORDERABLES Final R esult Performing Organization Address City/[facility] Co de Phone Number [address] [address] * (ABNORMAL) Lipid panel (11/17/2023 9:03 AM EDT) HDL 42 35 - 100 mg/dL [facility] CHOLESTEROL 199 <200 mg/dL [facility] TRIGLYCERIDES 130 40 - 150 mg/dL [facility] LDL 131(H) 50 - 129 mg/dL [facility] CARDIAC RISK RATIO 4.7 0.0 - 5.0 [facility] NON-HDL CHOLESTEROL 157 mg/dL [facility] Comment:NCEP ATP III guideli gallito suggest a non-HDL cholesterol goal 30 mg/dl higher than the patient-specific LDL goal. 11/17/2023 9:03 AM EDT 11/17/2023 3:49 PM EDT Cliff Horner MD LAB BLOOD BKR ORDERABLES Final R esult Performing Organization Address City/[facility]/ZIP Co de Phone Number [address] [address] * BI MAMMOGRAM SCREENING WITH TOMOSYNTHESIS WITH [...] 02/08/2020 Insurance MEDICARE PART A & [facility] MEDICARE PART A & [place] [facility] & [place]ICARE PART A & B [facility] Care Teams Vp Analytics Relationship Specialty Start Date End Date Pcp, Unknown PCP - General 11/17/23 Additional Source Comments The information contained in this document represents components of the legal health record. It is not the complete legal health record.[facility]
--- OUTSIDE RECORDS SUMMARY | 2025-04-14 13:10 | XMS_ITS | Encounter Summary ---
Author Organization [facility] Address [address] [place] [address] Phone Care Team Providers Care Onsite Health Coach Name Role Phone Stacey Reis MD Primary Care Provider [phone] Stacey Reis MD Unavailable [phone] Khurram Ruelas MD Unavailable + Khurram Ruelas MD Unavailable + Stacey Reis MD Unavailable [phone] Waylon Crespo MD Unavailable + Waylon Crespo MD Unavailable + Stacey Reis MD Unavailable [phone] Beryl Shirley PUBLIC HEALTH SERVICE OFFICER Unavailable [phone] Kaleigh Adams PUBLIC HEALTH SERVICE OFFICER Unavailable [phone] [facility] Catrina Mcclendon PUBLIC HEALTH SERVICE OFFICER Unavailable + [phone] Romain Bolanos PUBLIC HEALTH SERVICE OFFICER Unavailable MARLENE [email or web address] Yomi Bass MD Unavailable [phone] Keny Govea PUBLIC HEALTH SERVICE OFFICER Unavailable [phone] Unknown, Unknown Primary Care Provider Yomi Gray MD Unavailable [phone] Alba Harmon MD Unavailable [phone] Pcp, Unknown Primary Care Provider Unavailabl e Reason for Referral * MRI/CAT Scan - Closed Specialty Diagnoses / Procedures Referred By Jose ly Referred To Contact Radiology Diagnoses Unintentional weight loss Procedures CT PET Abdomen/Pelvis Khurram Ruelas MD Phone: tel: mailto:Zaid @[email or web address] Referral ID Status Reason Start Date Expiration Date Visits Re quested Visits Authorized [id number] Closed 06/24/2018 06/24/2019 1 1 * MRI/CAT Scan - Closed Specialty Diagnoses / Procedures Referred By Jose ly Referred To Contact Radiology Diagnoses Unintentional weight loss Procedures CT PET Chest Khurram Ruelas MD Phone: tel: mailto:Zaid @[email or web address] Referral ID Status Reason Start Date Expiration Date Visits Re quested Visits Authorized [id number] Closed 06/24/2018 06/24/2019 1 1 Encounter Details Date Type Department Care Team (Latest Contact Info) Description 06/24/2018 Ancillary Orders [facility] [address] [place] [phone] Khurram Ruelas MD [address] [place] [address] Akash [email or web address] [place] [...] EST [facility] [address] [address] documented as of this encounter Results * [...] documented as of this encounter Care Teams Onsite Health Coach Relationship Specialty Start Date End Date Stacey Reis MD PCP - General 03/11/14 02/16/22 Khurram Ruelas MD [address] [place] [address] [email or web address] PCP - Resident PCP 12/01/16 11/29/18 Waylon Crespo MD [address] [place] [address] [address] [place] [address] [email or web address] PCP - Resident PCP 11/30/1811/29 Yomi Bass MD 15 [facility] [address] [place] [address] [email or web address] PCP - Resident PCP 11/30/21 02/16/22 Unknown, German, PCP - General 03/03/22 11/16/23 Pcp, Unknown PCP - General 11/17/23 Stacey Reis MD [address] [place] [address] [email or web address] Insurance Assigned Provider 09/20/16 Khurram Ruelas MD [address] [place] [address] [email or web address] Partners Attributed Provider 01/10/1712/11 Stacey Reis MD [address] [place] [address] [email or web address] Insurance Assigned Provider 09/18/1810/09/18 Waylon Crespo MD [address] [place] [address] [address] [place] [address] [email or web address] Partners Attributed Provider 01/08/19 07/12/22 Stacey Reis MD [address] [place] [address] [email or web address] Insurance Assigned Provider 09/14/1909/13/22 Beryl Shirley, [address] [address] [email or web address] Optometric Technician 01/24/20 07/16/20 Kaleigh Adams [facility] [address] [place], [place] [phone] [email or web address] Optometric Technician 06/06/20 07/31/20 [facility] Catrina Mcclendon, [facility] [address] [place] [phone] [email or web address] Optometric Technician 07/17/20 07/18/[address] [phone] [email or web address] Optometric Technician 07/19/2112/07 Keny Govea, [facility] [address] [place] [address] [email or web address] Optometric Technician 01/03/2205/13/22 Yomi Bass MD 15 [facility] [address] [place] [address] [email or web address] Partners Attributed Provider 07/12/22 06/13/23 Alba Harmon MD [address] [place] [address], 10th Floor, [address] [place] [address] [address] [place] [address] [email or web address] Insurance Assigned Provider 09/13/22 documented as of this encounter Additional Source Comments The information contained in this document represents components of the legal health record. It is not the complete legal health record.[facility]
--- OUTSIDE RECORDS SUMMARY | 2025-04-14 13:11 | XMS_ITS | Encounter Summary ---
Author Organization [facility] Address [address] [place] [address] Phone Care Team Providers Care Coal Tram Driver Name Role Phone Stacey Reis MD Primary Care Provider [phone] Stacey Reis MD Unavailable [phone] Khurram Ruelas MD Unavailable + Khurram Ruelas MD Unavailable + Stacey Reis MD Unavailable [phone] Waylon Crespo MD Unavailable + Waylon Crespo MD Unavailable + Stacey Reis MD Unavailable [phone] Beryl Shirley PHOTO OFFSET PRINTER Unavailable [phone] Kaleigh Adams PHOTO OFFSET PRINTER Unavailable [phone] [facility] Catrina Mcclendon PHOTO OFFSET PRINTER Unavailable + [phone] Romain Paulson PHOTO OFFSET PRINTER Unavailable MARLENE [email or web address] Yomi Bass MD Unavailable [phone] Keny Govea PHOTO OFFSET PRINTER Unavailable [phone] Unknown, Unknown Primary Care Provider Yomi Gray MD Unavailable [phone] Alba Harmon MD Unavailable [phone] Pcp, Unknown Primary Care Provider Unavailabl e Encounter Details Date Type Department Care Team (Late st Contact Info) Description 07/22/2017 Procedure Pass [facility] 4 ENDO DEPT [address] [facility], 4th [place] [address] Social History Tobacco Use Types Packs/Day Years [...] EST [facility] [address] 1[address] [place] [address] documented as of this encounter Visit Diagnoses Not on filedocumented in this encounter Additional Health Concerns Assessment Noted Time PHQ-2 Depression Total Score: 0 03/25/20 17 1:47 PM EDT documented as of this encounter Care Teams Coal Tram Driver Relationship Specialty Start Date End Date Stacey Reis MD [email or web address] PCP - General 03/11/14 02/16/22 Khurram Ruelas MD [address] [place] [address] [email or web address] PCP - Resident PCP 12/01/16 11/29/18 Waylon Crespo MD [address] [place] [address] [phone] [place] [address] [email or web address] PCP - Resident PCP 11/30/1811/29 Yomi Bass MD [address] [place] [address] [address] [place] [address] [email or web address] PCP - Resident PCP 11/30/21 02/16/22 Unknown, German, PCP - General 03/03/22 11/16/23 Pcp, Unknown PCP - General 11/17/23 Stacey Reis MD [address] [place] [address] [place] [address] [email or web address] Insurance Assigned Provider 09/20/16 Khurram Ruelas MD [address] [place] [phone] [email or web address] Partners Attributed Provider 01/10/1712/11 Stacey Reis MD [address] [place] [address] [email or web address] Insurance Assigned Provider 09/18/1810/09/18 Waylon Crespo MD [address] [place] [address] [address] [place] [address] [email or web address] Partners Attributed Provider 01/08/19 07/12/22 Stacey Reis MD [address] [place] [address] [place] [address] [email or web address] Insurance Assigned Provider 09/14/1909/13/22 Beryl Shirley PHOTO OFFSET PRINTER [address] [place] [phone] [email or web address] PHCM Project Geologist 01/24/20 07/16/20 Kaleigh Adams PHOTO OFFSET PRINTER [address] [place] [phone] [email or web address] Project Geologist 06/06/20 07/31/20 [place] Catrina Mcclendon [facility] [address] [place] [phone] [email or web address] Project Geologist 07/17/20 07/18/21 Romain Paulson, [facility] [address] [place] [address] [email or web address]@[facility] Project Geologist 07/19/2112/07 Keny Govea, [facility] [address] [place] [address] [email or web address]@[facility] Project Geologist 01/03/2205/13/22 Yomi Bass MD 15 [facility] [address] [place] [address] [email or web address] Partners Attributed Provider 07/12/22 06/13/23 Alba Harmon MD 50 [facility], 10th Floor, [address] [place] [address] [address] [place] [address] [email or web address] Insurance Assigned Provider 09/13/22 documented as of this encounter Additional Source Comments The information contained in this document represents components of the legal health record. It is not the complete legal health record.[facility]
--- OUTSIDE RECORDS SUMMARY | 2025-04-14 13:11 | XMS_ITS | Encounter Summary ---
Author Organization [facility] Address [address] [place] [address] [address] [place] [address] Phone Care Team Providers Care Lamp Developer Name Role Phone Stacey Reis MD Primary Care Provider + [phone] Waylon Crespo MD Unavailable +[phone] Waylon Crespo MD Unavailable +[phone] Stacey Reis MD Unavailable +[phone] Beryl Shirley FIRE SUPPORT SPECIALIST Unavailable +[phone] Kaleigh Adams FIRE SUPPORT SPECIALIST Unavailable [phone] GustavoCatrina Nelson FIRE SUPPORT SPECIALIST Unavailable + [phone] Romain Bolanos FIRE SUPPORT SPECIALIST Unavailable MARLENE [email or web address]@[email or web address].[place].[facility] Yomi Bass MD Unavailable +[phone] Keny Govea FIRE SUPPORT SPECIALIST Unavailable +[phone] Unknown, Unknown Primary Care Provider Yomi Gray MD Unavailable +[phone] Alba Harmon MD Unavailable +[phone] Pcp, Unknown Primary Care Provider Unavailabl e Encounter Details Date Type Department Care Team (Late st Contact Info) Description 05/23/2020 Procedure Pass [facility], Dwight 2 [address] [facility], 2nd Floor, [address] [place] [address] Social History Tobacco Use Types Packs/Day Years [...] EST [facility] [address] 1st [place] [address] documented as of this encounter Goals Goal [...] documented as of this encounter Care Teams Lamp Developer Relationship Specialty Start Date End Date Stacey Reis MD [email or web address] PCP - General 03/11/14 02/16/22 Waylon Crespo MD [address] [place] [address] [address] [place] [address] [email or web address].[place].[facility] PCP - Resident PCP 11/30/1811/29 Yomi Bass MD 15 [facility] 730 [place] [address] [email or web address] PCP - Resident PCP 11/30/21 02/16/22 German oPrter MD PCP - General 03/03/22 11/16/23 Pcp, Unknown PCP - General 11/17/23 Waylon Crespo MD 55 [facility] 7730 [place] [address] [email or web address]@[email or web address] Partners Attributed Provider 01/08/19 07/12/22 Stacey Reis MD 55 [facility] 605 [place] [address] [email or web address] Insurance Assigned Provider 09/14/1909/13/22 Beryl Shirley, [address] [address] [email or web address] Print Operator 01/24/20 07/16/20 Kaleigh Adams [facility] [address] [place], [place] [address] [email or web address] Print Operator 06/06/20 07/31/20 Catrina Lee [facility] [address] [place] [address] [email or web address] Print Operator 07/17/20 07/18/21 Romain Bolanos, [address] [address] ASAD@[facility] Print Operator 07/19/2112/07 Keny Govea, [facility] [address] [place] [address] [email or web address]@[facility] Print Operator 01/03/2205/13/22 Yomi Bass MD [address] [place] [address] 730 [place] [address] [email or web address] Partners Attributed Provider 07/12/22 06/13/23 Alba Harmon MD [address] [place] [address], 10th [facility], [address] [place] [address] 10 [place] [address] [email or web address] Insurance Assigned Provider 09/13/22 documented as of this encounter Additional Source Comments The information contained in this document represents components of the legal health record. It is not the complete legal health record.[facility]
--- OUTSIDE RECORDS SUMMARY | 2025-04-14 13:11 | XMS_ITS | Encounter Summary ---
Author Organization [facility] Address [address] [place] [address] Phone Care Team Providers Care Rn Maternity Name Role Phone Stacey Reis MD Primary Care Provider + [phone] Waylon Crespo MD Unavailable +[phone] Waylon Crespo MD Unavailable +[phone] Stacey Reis MD Unavailable +[phone] Beryl Shirley CABIN AGENT Unavailable +[phone] Kaleigh Adams CABIN AGENT Unavailable [phone] Catrina Lee CABIN AGENT Unavailable + [phone] Romain Bolanos CABIN AGENT Unavailable MARLENE BOLANOS@[email or web address].[place] Yomi Bass MD Unavailable +[phone] Keny Govea CABIN AGENT Unavailable +[phone] Unknown, Unknown Primary Care Provider Yomi Gray MD Unavailable [phone] Alba Harmon MD Unavailable +[phone] Pcp, Unknown Primary Care Provider Unavailabl e Encounter Details Date Type Department Care Team (Late st Contact Info) Description 05/31/2020 Procedure Pass [facility] ERENDIRA 4 ENDO DEPT 55 [address] [facility], 4th [place] [address] Social History Tobacco Use Types Packs/Day Years [...] EST [facility] [address] 1st [place] [address] documented as of this encounter Goals Goal [...] documented as of this encounter Care Teams Rn Maternity Relationship Specialty Start Date End Date Stacey Reis MD [email or web address] PCP - General 03/11/14 02/16/22 Waylon Crespo MD 55 [facility] [address] [place] [address] [email or web address].[place] PCP - Resident PCP 11/30/1811/29 Yomi Bass MD 15 [facility] 730 [place] [address] [email or web address] PCP - Resident PCP 11/30/21 02/16/22 German Porter MD PCP - General 03/03/22 11/16/23 Pcp, Unknown PCP - General 11/17/23 Waylon Crespo MD 55 [facility] 7730 [place] [address] AKBAR@[email or web address] Partners Attributed Provider 01/08/19 07/12/22 Stacey Reis MD 55 [facility] 605 [place] [address] [email or web address] Insurance Assigned Provider 09/14/1909/13/22 Beryl Shirley, [address] [address] [email or web address] PHC Bar Machine Operator Multiple Spindle 01/24/20 07/16/20 Kaleigh Adams [facility] [address] [place], [place] [address] [email or web address] Bar Machine Operator Multiple Spindle 06/06/20 07/31/20 Catrina Lee [facility] [address] [place] [address] VAN@[facility] PHCM Bar Machine Operator Multiple Spindle 07/17/20 07/18/21 Romain Bolanos, [address] [address] ASAD@[email or web address] PHCM Bar Machine Operator Multiple Spindle 07/19/2112/07 Keny Govea, [facility] 125 [place] [address] [email or web address] PHCM Bar Machine Operator Multiple Spindle 01/03/2205/13/22 Yomi Bass MD [address] [place] [address] 730 [place] [address] [email or web address] Partners Attributed Provider 07/12/22 06/13/23 Alba Harmon MD [address] [place] [address], 10th Floor, [address] [place] [address] 10 [place] [address] [email or web address] Insurance Assigned Provider 09/13/22 documented as of this encounter Additional Source Comments The information contained in this document represents components of the legal health record. It is not the complete legal health record.[facility]
--- OUTSIDE RECORDS SUMMARY | 2025-04-14 13:11 | XMS_ITS | Encounter Summary ---
Author Organization [facility] Address [address] [place] [address] [address] [place] [address] Phone Care Team Providers Care Patrol Sergeant Sheriff'S Office Name Role Phone Stacey Reis MD Primary Care Provider + [phone] Waylon Crespo MD Unavailable [phone] Waylon Crespo MD Unavailable +[phone] Stacey Reis MD Unavailable [phone] Beryl Shirley CLINICAL RESEARCH ADMINISTRATOR Unavailable +[phone] Kaleigh Adams CLINICAL RESEARCH ADMINISTRATOR Unavailable [phone] GustavoCatrina Nelson CLINICAL RESEARCH ADMINISTRATOR Unavailable + [phone] Romain Bolanos CLINICAL RESEARCH ADMINISTRATOR Unavailable MARLENE [email or web address]@[email or web address].[place].[facility] Yomi Bass MD Unavailable [phone] Keny Govea CLINICAL RESEARCH ADMINISTRATOR Unavailable [phone] Unknown, Unknown Primary Care Provider Yomi Gray MD Unavailable [phone] Alba Harmon MD Unavailable [phone] Pcp, Unknown Primary Care Provider Unavailabl e Encounter Details Date Type Department Care Team (Late st Contact Info) Description 05/23/[address] [place] [address], [address] [facility], 2nd Floor, [address] [place] [address] Social History Tobacco Use Types Packs/Day Years [...] EST [facility] [address] 1st [place] [address] documented as of this encounter Goals Goal [...] documented as of this encounter Care Teams Patrol Sergeant Sheriff'S Office Relationship Specialty Start Date End Date Stacey Reis MD [email or web address] PCP - General 03/11/14 02/16/22 Waylon Crespo MD [address] [place] [address] [address] [place] [address] [email or web address] PCP - Resident PCP 11/30/1811/29 Yomi Bass MD 15 [facility] 730 [place] [address] [email or web address] PCP - Resident PCP 11/30/21 02/16/22 German Porter MD PCP - General 03/03/22 11/16/23 Pcp, Unknown PCP - General 11/17/23 Waylon Crespo MD 55 [facility] 7730 [place] [address] [email or web address] Partners Attributed Provider 01/08/19 07/12/22 Stacey Reis MD 55 [facility] 605 [place] [address] [email or web address] Insurance Assigned Provider 09/14/1909/13/22 Beryl Shirley, [address] [address] [email or web address] Charge Account Clerk 01/24/20 07/16/20 Kaleigh Adams [facility] [address] [place], [place] [phone] [email or web address] Charge Account Clerk 06/06/20 07/31/20 Catrina Lee [facility] [address] [place] [address] VAN@[email or web address] Charge Account Clerk 07/17/20 07/18/21 Romain Bolanos, [address] [address] ASAD@[facility] Charge Account Clerk 07/19/2112/07 Keny Govea, [facility] 125 [place] [address] [email or web address]@[facility] Charge Account Clerk 01/03/2205/13/22 Yomi Bass MD [address] [place] [address] 730 [place] [address] [email or web address] Partners Attributed Provider 07/12/22 06/13/23 Alba Harmon MD [address] [place] [address], 10th [facility], [address] [place] [address] 10 [place] [address] [email or web address] Insurance Assigned Provider 09/13/22 documented as of this encounter Additional Source Comments The information contained in this document represents components of the legal health record. It is not the complete legal health record.[facility]
--- OUTSIDE RECORDS SUMMARY | 2025-04-14 13:11 | XMS_ITS | Encounter Summary ---
Author Organization [facility] Address [address] [place] [address] Phone Care Team Providers Care Police Clerk Name Role Phone Stacey Reis MD Primary Care Provider [phone] Khurram Ruelsa MD Unavailable + Khurram Ruelas MD Unavailable + Stacey Reis MD Unavailable [phone] Waylon Crespo MD Unavailable +[phone] Waylon Crespo MD Unavailable +[phone] Stacey Reis MD Unavailable [phone] Beryl Shirley BAND SAW OPERATOR Unavailable +[phone] Kaleigh Adams BAND SAW OPERATOR Unavailable [phone] [facility] Catrina Mcclendon BAND SAW OPERATOR Unavailable + [phone] Romain Bolanos BAND SAW OPERATOR Unavailable MARLENE [email or web address]@[email or web address] Yomi Bass MD Unavailable [phone] Keny Govea BAND SAW OPERATOR Unavailable [phone] Unknown, Unknown Primary Care Provider Yomi Gray MD Unavailable [phone] Alba Harmon MD Unavailable [phone] Pcp, Unknown Primary Care Provider Unavailabl e Encounter Details Date Type Department Care Team (Late st Contact Info) Description 09/29/2018 Procedure Pass [facility] CRP ENDO DEPT [address] 9th [place] [address] Social History Tobacco Use Types Packs/Day Years [...] EST [facility] [address] [place] [address] documented as of this encounter Visit Diagnoses Not on filedocumented in this encounter Additional Health Concerns Assessment Noted Time PHQ-2 Depression Total Score: 0 03/25/20 17 1:47 PM EDT documented as of this encounter Care Teams Police Clerk Relationship Specialty Start Date End Date Stacey Reis MD [email or web address] PCP - General 03/11/14 02/16/22 Khurram Ruelas MD [address] [place] [address] [email or web address] PCP - Resident PCP 12/01/16 11/29/18 Waylon Crespo MD [address] [place] [address] [address] [place] [address] [email or web address] PCP - Resident PCP 11/30/1811/29 Yomi Bass MD [address] [place] [address] 730 [place] [address] [email or web address] PCP - Resident PCP 11/30/21 02/16/22 Unknown, German, PCP - General 03/03/22 11/16/23 Pcp, Unknown PCP - General 11/17/23 Khurram Ruelas MD [address] [place] [address] Zaid@[facility] Partners Attributed Provider 01/10/1712/11 Stacey Reis MD [address] [place] [address] [email or web address] Insurance Assigned Provider 09/18/1810/09/18 Waylon Crespo MD [address] [place] [address] [address] [place] [address] [email or web address]@[facility] Partners Attributed Provider 01/08/19 07/12/22 Stacey Reis MD [address] [place] [address] [email or web address] Insurance Assigned Provider 09/14/1909/13/22 Beryl Shirley LICSW [address] [place] [address] [email or web address] PHCM Manager Estate 01/24/20 07/16/20 Kaleigh Adams LICSW [address] [place] [address] [email or web address] Manager Estate 06/06/20 07/31/20 [facility] Catrina Mcclendon LICSW [address] [place] [address] [email or web address]@[facility] Manager Estate 07/17/20 07/18/21 Romain Bolanos, [facility] 151 [place] [address] ASAD@[facility] PHC Manager Estate 07/19/2112/07 Keny Govea, [facility] 125 [place] [address] GOKUL@[facility] Manager Estate 01/03/2205/13/22 Yomi Bass MD 15 [facility] 730 [place] [address] [email or web address] Partners Attributed Provider 07/12/22 06/13/23 Alba Harmon MD 50 [facility], 10th Floor, [address] [place] [address] 10 [place] [address] [email or web address] Insurance Assigned Provider 09/13/22 documented as of this encounter Additional Source Comments The information contained in this document represents components of the legal health record. It is not the complete legal health record.[facility]
--- OUTSIDE RECORDS SUMMARY | 2025-04-14 13:12 | XMS_ITS | Encounter Summary ---
Author Organization [facility] Address [address] [place] [address] Phone Care Team Providers Care Diesel Truck Technician Name Role Phone Stacey Reis MD Primary Care Provider [phone] Stacey Reis MD Unavailable [phone] Khurram Ruelas MD Unavailable + Khurram Ruelas MD Unavailable + Stacey Reis MD Unavailable +[phone] Waylon Crespo MD Unavailable + Waylon Crespo MD Unavailable + Stacey Reis MD Unavailable +[phone] Beryl Shirley SCRAP SEPARATOR Unavailable +[phone] Kaleigh Adams SCRAP SEPARATOR Unavailable [phone] [facility] Catrina Mcclendon SCRAP SEPARATOR Unavailable + [phone] Romain Paulson SCRAP SEPARATOR Unavailable MARLENE [email or web address].[place].[facility] Yomi Bass MD Unavailable [phone] Keny Govea SCRAP SEPARATOR Unavailable [phone] Unknown, Unknown Primary Care Provider Yomi Gray MD Unavailable +[phone] Alba Harmon MD Unavailable [phone] Pcp, Unknown Primary Care Provider Unavailabl e Encounter Details Date Type Department Care Team (Late st Contact Info) Description 06/08/2017 Procedure Pass [facility] ERENDIRA 4 ENDO DEPT 55 [facility], 4th [place] [address] Social History Tobacco Use Types Packs/Day Years [...] EST [facility] [address] [place] 1st [place] [address] documented as of this encounter Visit Diagnoses Not on filedocumented in this encounter Additional Health Concerns Assessment Noted Time PHQ-2 Depression Total Score: 0 03/25/20 17 1:47 PM EDT documented as of this encounter Care Teams Diesel Truck Technician Relationship Specialty Start Date End Date Stacey Reis MD [email or web address] PCP - General 03/11/14 02/16/22 Khurram Ruelas MD [address] [place] [address] Zaid@[email or web address] PCP - Resident PCP 12/01/16 11/29/18 Waylon Crespo MD [address] [place] [address] 4[address] [place] [address] AKBAR@[email or web address] PCP - Resident PCP 11/30/1811/29 Yomi Bsas MD [address] [place] [address] 730 [place] [address] [email or web address] PCP - Resident PCP 11/30/21 02/16/22 Unknown, German, PCP - General 03/03/22 11/16/23 Pcp, Unknown PCP - General 11/17/23 Stacey Reis MD [address] [place] [address] [place] [address] [email or web address] Insurance Assigned Provider 09/20/16 Khurram Ruelas MD [address] [place] [address] [email or web address] Partners Attributed Provider 01/10/1712/11 Stacey Reis MD [address] [place] [address] [email or web address] Insurance Assigned Provider 09/18/1810/09/18 Waylon Crespo MD [address] [place] [address] 7[address] [place] [address] [email or web address]@[facility] Partners Attributed Provider 01/08/19 07/12/22 Stacey Reis MD [address] [place] [address] [place] [address] [email or web address] Insurance Assigned Provider 09/14/1909/13/22 Beryl Shirley SCRAP SEPARATOR [address] [place] [phone] [email or web address] PHCM [place] Drill Operator 01/24/20 07/16/20 Kaleigh Adams SCRAP SEPARATOR [address] [place] [phone] [email or web address]@[facility] [place] Drill Operator 06/06/20 07/31/20 [place] Catrina Mcclendon [facility] [address] [place] [address] [email or web address]@[facility] [place] Drill Operator 07/17/20 07/18/21 Romain Paulson, [facility] 151 [place] [address] ASAD@[facility] [place] Drill Operator 07/19/2112/07 Keny Govea, [facility] 125 [place] [address] GOKUL@[facility] [place] Drill Operator 01/03/2205/13/22 Yomi Bass MD 15 [facility] 730 [place] [address] [email or web address] Partners Attributed Provider 07/12/22 06/13/23 Alba Harmon MD 50 [facility], 10th Floor, [address] [place] [address] 10 [place] [address] [email or web address] Insurance Assigned Provider 09/13/22 documented as of this encounter Additional Source Comments The information contained in this document represents components of the legal health record. It is not the complete legal health record.[facility]
--- OUTSIDE RECORDS SUMMARY | 2025-04-14 13:12 | XMS_ITS | Encounter Summary ---
Author Organization [facility] Address [address] [place] [id number] Phone Care Team Providers Care Dispensing Lead Name Role Phone Stacey Reis MD Primary Care Provider + [phone] Waylon Crespo MD Unavailable [phone] Waylon Crespo MD Unavailable [phone] Stacey Reis MD Unavailable [phone] Beryl Shirley [employer]CH[employer] Unavailable [phone] Kaleigh Adams [employer] MECH[employer] Unavailable [phone] 90 [facility] Catrina Mcclendon [employer] MECHANIC Unavailable + [phone] Romain Bolanos [employer] MECH[employer]IC Unavailable [email or web address] Yomi Bass MD Unavailable [phone] Keny Govea [employer] MECH[employer]IC Unavailable [phone] Unknown, Unknown Primary Care Provider Yomi Gray MD Unavailable [phone] Alba Harmon MD Unavailable [phone] Pcp, Unknown Primary Care Provider Unavailabl e Encounter Details Date Type Department Care Team (Late st Contact Info) Description 07/01/2019 Telephone [facility] [address] [facility], [address] [place], [place] [id number] Stacey Reis MD [address] [place] [address] [address] [place] [address] [email or web address] Social History Tobacco Use Types Packs/Day Years [...] EST [facility] [address] 1st [place] [address] documented as of this encounter Visit Diagnoses Not on filedocumented in this encounter Additional Health Concerns Assessment Noted Time PHQ-2 Depression Total Score: 0 03/25/20 17 1:47 PM EDT documented as of this encounter Care Teams Dispensing Lead Relationship Specialty Start Date End Date Stacey Reis MD [email or web address] PCP - General 03/11/14 02/16/22 Waylon Crespo MD [address] [place] [address] [address] [place] [address] [email or web address] PCP - Resident PCP 11/30/1811/29 Yomi Bass MD 15 [facility] [address] [place] [address] [email or web address] PCP - Resident PCP 11/30/21 02/16/22 Unknown, MD German PCP - General 03/03/22 11/16/23 Pcp, Unknown PCP - General 11/17/23 Waylon Crespo MD 55 [facility] [address] [place] [address] [email or web address] Attributed Provider 01/08/19 07/12/22 Stacey Reis MD [address] [facility] [address] [place] [address] [email or web address] Insurance Assigned Provider 09/14/1909/13/22 Beryl Shirley, [facility] [address] [place] [address] [email or web address] [employer] Machine Operator 01/24/20 07/16/20 Kaleigh Adams [facility] [address] [place], [place] [phone] [email or web address] [employer] Machine Operator 06/06/20 07/31/20 [facility] Catrina Mcclendon [facility] [address] [place] [phone] [email or web address] Curling Machine Operator 07/17/20 07/18/21 Romain Bolanos, [facility] [address] [place] [address] [email or web address] 07/19/2112/07 Keny Govea, [facility] [address] [place] [address] [email or web address] 01/03/2205/13/22 Yomi Bass MD 15 [facility] [address] [place] [address] [email or web address] [employer] Attributed Provider 07/12/22 06/13/23 Alba Harmon MD [address] [place] [address], 10th Floor, [address] [place] [address] [address] [place] [address] [email or web address] Insurance Assigned Provider 09/13/22 documented as of this encounter Additional Source Comments The information contained in this document represents components of the legal health record. It is not the complete legal health record.[facility]
== END 2025-04-14 11:20 | disposition home or self-care (01) ==
LOC: HO.HMCFMS 10:58
PROVIDERS: PCP Student in an Organized Health Care Education/Training Program; Visit Provider Student in an Organized Health Care Education/Training Program
DX: R25.1 Tremor, unspecified (principal); J44.9 Chronic obstructive pulmonary disease, unspecified; G25.82 Stiff-man syndrome; B37.2 Candidiasis of skin and nail; M54.50 Low back pain, unspecified; G89.29 Other chronic pain

== ENCOUNTER → 2025-04-14 10:57 | Outpatient (BNVA) | payer MEDICARE, MEDICAID, SELFPAY | PROVIDERS: PCP Student in an Organized Health Care Education/Training Program; Visit Provider Student in an Organized Health Care Education/Training Program | DX: J44.9 Chronic obstructive pulmonary disease, unspecified (principal); G25.82 Stiff-man syndrome; B37.2 Candidiasis of skin and nail; M54.50 Low back pain, unspecified; G89.29 Other chronic pain | CPT/HCPCS: 99212 ==

== ENCOUNTER 2025-05-19 11:01 | Outpatient (AMB) | payer MEDICARE, MEDICAID, SELFPAY ==
--- NOTE | 2025-05-19 11:17 | A.OFFPC_ITS ---
Vital Signs 05/19/25 11:22 Height 5 ft 4 in Weight 166 lb 4 oz BMI 28.5 BP 112/71 Blood Pressure Location Rt brachial Position Sitting Respiration 16 Pulse 79 Pulse Source Pulse Oximeter Temp 98.1 F Temp Source Oral Pulse Oximetry (%) 95 Oxygen Delivery Method Room Air Intake Visit Reasons: 1 mo f/u Intake Note: 1 month follow up [employer] Required: No Accompanied by: Self / Same As Patient Allergies albuterol Adverse Reaction (Verified 05/19/25 11:21) Palpitations Medication List - Last Reconciled 05/19/25 by Mike Boyle MD albuterol sulfate 90 mcg/actuation (Ventolin HFA) 2 puffs inhalation Q6H PRN baclofen 10 mg PO TID diazepam 5 mg PO DAILY PRN gabapentin 600 mg PO BID ibuprofen 800 mg PO Q8H melatonin 6 mg (2 x 3 mg) PO BEDTIME PRN midodrine 10 mg PO TIDWM nystatin 1 appl topical BID olanzapine 20 mg (2 x 10 mg) PO BEDTIME trazodone 50 mg PO BEDTIME PRN Tobacco use date assessed: 03/24/25 Dental Screening Dental Screen Date: 03/24/25 HPI HPI Comments History of Present Illness Details History of Present Illness The patient is a 59 year old female presenting with medication refills and follow-up. Psychiatric conditions: The patient has diagnoses of depression and anxiety, and reports a history of suicidal ideation, though she denies current intent. She takes olanzapine, trazodone, diazepam, gabapentin, and melatonin for these conditions. A referral to behavioral health was placed on 03/24/25, but the patient reports she has not been contacted. Neurological conditions: A referral was made to neurology, but the patient has not yet been seen. The neurology office made several attempts to contact her and mailed a letter, but the patient states that when she called them, she was told they are backlogged and she was placed on a waiting list. Insomnia: The patient reports having sleep issues. Rash: The patient previously had a rash for which a cream was prescribed. The rash improved with the cream but does recur, and she continues to use the cream as needed. Medications: - Olanzapine - Trazodone - Diazepam - Gabapentin - Melatonin - Baclofen - Topical cream for rash Social History: - The patient's son is doing well and ac companied her to the appointment. Past Medical History - Psychiatric history of depression, anx iety, and suicidality. - History of a rash, treated with a topi john cream. - Insomnia. Health Maintenance [facility] Medical History (Updated 05/19/25 @ 21:02 by Mike Boyle MD) History of suicidal ideation PTSD (post-traumatic stress disorder) Anxiety Insomnia Needs assistance with community resources Tremors of nervous system Dermatitis No home medical services Depression Bowel perforation Lupus Hypertension Stiff-man syndrome Pneumonia COPD (chronic obstructive pulmonary disease) Delusional disorder Surgical History History of mandibular surgery History of cholecystectomy Family History Paternal Grandmother TB (pulmonary tuberculosis) Father FH: HTN (hypertension) Social History Household Members: Family Household Members Other:: son, gf, grandchildren Housing: House Do you presently have visiting nurse or other home services: No (By history) Alcohol intake: current Alcohol intake frequency: does not drink Patient Tobacco Use Status: Current everyday Tobacco user Tobacco use type: Cigarette Cigarette Packs Per Day: 5 e-Cigarette/Vaping Use: Currently Using Second Hand Smoke Exposure: No Substance Use Type: Marijuana, Other and Caffiene service: No Current occupational status: retired and disabled Sexual orientation: Straight/Heterosexual Cognitive needs: No Hearing needs: No Vision needs: Yes (rx glasses) Questionnaire Thrive Questionnaire Date Thrive assessed: 02/24/25 I am a: Patient What is your living situation today?: I have a steady place to live Within the past 12 months, did the food you bought not last and you didn't have the money to get more?: Often true Within the past 12 months, did you worry whether your food would run out before you got money to buy more?: Often true Do you have trouble paying for medicines?: No Do you have trouble getting transportation to medical appointments?: Yes Do you have trouble paying your heating and electricity bill?: No Do you have trouble taking care of your child, family member or friend?: Yes Are you currently unemployed and looking for a job?: No Are you interested in more education?: No Please select the resources that you would like help with: Daily support THRIVE Score: 3 PATRICIA-7 AMB Questionnaire PATRICIA-7 Date PATRICIA - 7 assessed: 03/24/25 Source: Developed by Drs. Jason Solano, Tomasa Mott, Yordy Palencia and colleagues, with an educational kala from [employer]. Review of Systems Narrative Review of Systems - Psychiatric: Reports history of depression, anxiety, and suicidal ideation. - Denies current suicidality. - Neurological: Reports sleep issues. - Integumentary: Reports a recurrent rash which responds to a prescribed cream. - General: Denies any other issues. 10-point ROS reviewed and negative except as noted in HPI Physical exam (Primary Care) Vital Signs: Last Vital Signs Temp 98.1 F 05/19/25 11:22 Pulse 79 05/19/25 11:22 Resp 16 05/19/25 11:22 BP 112/71 05/19/25 11:22 Pulse Ox 95 05/19/25 11:22 Oxygen Delivery Method Room Air 05/19/25 11:22 BMI result Body Mass Index 28.5 Tobacco/Smoking Status: Tobacco use Status Tobacco use date assessed 03/24/25 05/19/25 11:20 Patient Tobacco Use Status Current everyday Tobacco 05/19/25 11:20 Tobacco use type Cigarette 05/19/25 11:20 e-Cigarette/Vaping Use Currently Using 05/19/25 11:20 Thrive Assessment: Date of Thrive Assessment Date Thrive assessed 02/24/25 05/19/25 16:02 Narrative Physical Exam General: Well-appearing, in no acute distress. Vital signs: Within normal limits. HEENT: Normocephalic, atraumatic. PERRLA, EOMI. Conjunctiva clear, sclera anicteric. Oropharynx clear, mucous membranes moist. TMs intact bilaterally. Neck: Supple, no lymphadenopathy, no thyromegaly, no JVD or carotid bruits. Cardiovascular: RRR, normal S1/S2, no murmurs, rubs, or gallops. Peripheral pulses 2+ and symmetric. No edema. Respiratory: Lungs clear to auscultation bilaterally, no wheezes, rales, or rhonchi. Normal effort. Abdomen: Soft, non-tender, non-distended. Normoactive bowel sounds. No hepatosplenomegaly, no masses. MSK: Full range of motion, no joint swelling or deformity. stiff, rigid, board- like gait Skin: Warm, dry, intact. Rash present, but managed with cream. Neuro: Alert and oriented x3. Cranial nerves II-XII intact. Strength 5/5 throughout. Sensation intact. Reflexes 2+ symmetric. generalized tremors Psych: Appropriate mood and affect. Normal judgment and insight. Reports depression, anxiety, and sleep issues. 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 Dermatitis L30.9 Assessment & Plan Assessment & Plan (1) Depression: Code(s): F32.A - Depression, unspecified Category: Medical (2) Delusional disorder: Code(s): F22 - Delusional disorders Category: Medical (3) Insomnia: Code(s): G47.00 - Insomnia, unspecified Category: Medical (4) Anxiety: Code(s): F41.9 - Anxiety disorder, unspecified Category: Medical (5) PTSD (post-traumatic stress disorder): Code(s): F43.10 - Post-traumatic stress disorder, unspecified Category: Medical (6) History of suicidal ideation: Code(s): Z86.59 - Personal history of other mental and behavioral disorders Category: Medical (7) Stiff-man syndrome: Code(s): G25.82 - Stiff-man syndrome Category: Medical (8) Dermatitis: Code(s): L30.9 - Dermatitis, unspecified Category: Medical Plan Consent Patient was informed and verbally consented to the use of an ambient scribe for clinic note documentation during this visit. Plan 1. Medication Management - Refills for gabapentin, baclofen, and diazepam will be sent to [facility] pharmacy. 2. Psychiatric Disorder - The patient takes multiple psychiatric medications including olanzapine, trazodone, diazepam, gabapentin, and melatonin which requires monitoring by a psychiatrist. - A referral to behavioral health/psychiatry will be re-submitted. - The patient was advised that diazepam will be tapered if she does not follow up with a verified psychiatry appointment. 3. Referral Coordination - The community nurse navigator will be brought in to assist the patient with arranging appointments for neurology and behavioral health referrals. - A referral to neurology will be re-submitted. Discussion Notes I discussed with the patient the importance of being proactive in following up with her referrals to neurology and behavioral health/psychiatry. I explained that her current medications, including olanzapine, trazodone, diazepam, gabapentin, and melatonin, require management by a psychiatrist, and I will not continue to refill them indefinitely without specialist oversight. I informed her that I will refill her gabapentin, baclofen, and diazepam at this time, but I will begin to taper the diazepam if she does not provide proof of a scheduled psychiatry appointment. I acknowledged her report that neurology has her on a waitlist due to being backlogged. To assist with these issues, I arranged for our community nurse navigator to meet with her today to help coordinate scheduling these appointments. I assured the patient that while specialist follow-up is necessary, I would not abruptly stop her medications. Patient Instructions - Your prescriptions for gabapentin, baclofen, and diazepam have been sent to [facility] pharmacy. - It is very important that you see a psychiatrist for management of your medications. - If you do not have a confirmed appointment with psychiatry, we will need to start slowly decreasing your diazepam dose. - Please meet with our community nurse navigator, Guillermina, today. She will help you schedule your appointments with neurology and psychiatry. - Continue to use the prescribed cream for your rash as needed if it comes back. Medical Decision Making The patient is a 59-year-old female who presented for medication refills and follow-up. Her primary issues are non-adherence to specialist referrals for neurology and psychiatry. She is on a complex regimen of psychoactive medications (olanzapine, trazodone, diazepam, gabapentin) that is not appropriate for long-term management in a primary care setting and requires specialist oversight. The patient reported difficulties contacting the referred specialists, citing backlogs and being placed on a waiting list for neurology, and not being contacted by behavioral health. Given these barriers, the plan is to re-engage care coordination by involving the community nurse navigator to facilitate scheduling these crucial appointments. Medications (gabapentin, baclofen, diazepam) were refilled to avoid abrupt discontinuation, but I clearly communicated that continued refills, particularly of the benzodiazepine, are contingent on establishing care with psychiatry. A tapering plan for diazepam will be initiated if a verified appointment is not made. New referrals for both specialties will be submitted. Total Time Statement 20 min Total time spent caring for the patient today includes pre-visit chart review, documentation, review of laboratory and diagnostic imaging results, medication reconciliation, medically necessary evaluation, counseling on diagnoses, care coordination, ordering appropriate tests and medications, review of tests performed by other providers, reporting test results to the patient, and commun ication with other healthcare providers. Orders: Referrals Behavioral Health Referral F22 - Delusional disorders, F32.A - Depression, unspecified, F43.12 - Post-traumatic stress disorder, chronic, F43.22 - Adjustment disorder with anxiety Nurse Navigator Referral Z78.9 - Other specified health status Psychiatry Outpatient Consultation Service F22 - Delusional disorders, F32.A - Depression, unspecified, F43.12 - Post-traumatic stress disorder, chronic, F43.22 - Adjustment disorder with anxiety Neurology Referral G47.00 - Insomnia, unspecified Psychiatry Referral F22 - Delusional disorders, F32.A - Depression, unspecified, F43.22 - Adjustment disorder with anxiety Medications: Refilled baclofen 10 mg PO TID 270 tabs 1RF gabapentin 600 mg PO BID 180 tabs 0RF diazepam 5 mg PO DAILY PRN 30 tabs 0RF anxiety
[2025-05-19 11:22] VITALS: BP 112/71; PULSE 79; RESP 16; TEMP 36.7; O2SAT 95; BMI 28.5
--- NOTE | 2025-05-19 16:02 | MHC.COMNAV ---
Intake Vital Signs 05/19/25 11:22 Height 5 ft 4 in Weight 166 lb 4 oz BMI 28.5 BP 112/71 Blood Pressure Location Rt brachial Position Sitting Respiration 16 Pulse 79 Pulse Source Pulse Oximeter Temp 98.1 F Temp Source Oral Pulse Oximetry (%) 95 Oxygen Delivery Method Room Air Intake Visit Reasons: 1 mo f/u Allergies albuterol Adverse Reaction (Verified 05/19/25 11:21) Palpitations Medication List - Last Reconciled 05/19/25 by Mike Boyle MD albuterol sulfate 90 mcg/actuation (Ventolin HFA) 2 puffs inhalation Q6H PRN baclofen 10 mg PO TID diazepam 5 mg PO DAILY PRN gabapentin 600 mg PO BID ibuprofen 800 mg PO Q8H melatonin 6 mg (2 x 3 mg) PO BEDTIME PRN midodrine 10 mg PO TIDWM nystatin 1 appl topical BID olanzapine 20 mg (2 x 10 mg) PO BEDTIME trazodone 50 mg PO BEDTIME PRN PFSH Medical History (Updated 05/19/25 @ 21:02 by Mike Boyle MD) History of suicidal ideation PTSD (post-traumatic stress disorder) Anxiety Insomnia Needs assistance with community resources Tremors of nervous system Dermatitis No home medical services Depression Bowel perforation Lupus Hypertension Stiff-man syndrome Pneumonia COPD (chronic obstructive pulmonary disease) Delusional disorder Surgical History History of mandibular surgery History of cholecystectomy Family History Paternal Grandmother TB (pulmonary tuberculosis) Father FH: HTN (hypertension) Social History Household Members: Family Household Members Other:: son, gf, grandchildren Housing: House Do you presently have visiting nurse or other home services: No (By history) Alcohol intake: current Alcohol intake frequency: does not drink Patient Tobacco Use Status: Current everyday Tobacco user Tobacco use type: Cigarette Cigarette Packs Per Day: 5 e-Cigarette/Vaping Use: Currently Using Second Hand Smoke Exposure: No Substance Use Type: Marijuana, Other and Caffiene service: No Current occupational status: retired and disabled Sexual orientation: Straight/Heterosexual Cognitive needs: No Hearing needs: No Vision needs: Yes (rx glasses) Community Navigation Community Navigation Self-care plan Self-care plan status New Taking medications as prescribed Yes Goals care coordination, continue therapeutic health regimen Barriers low health care literacy, no communication except by mail (no phone or internet) Action met with pt to assist with continued care and obtaining referrals. this Nurse Navigator assisted (1:1) pt with obtaining a Neuro appt in person, Psychiatry appt using office phone and staff. pt requests Navigation staff assist with getting phone or therapy appts. all appts written for pt to add to home calendar and letter sent as reminder of all appts made today. pt able to teach back importance of keeping appts. pt still has concerns about keeping up with confirming appts as she has no phone or internet at this time. pt noted may have ability to make single call from a home phone (group living situation) but has no way of getting back in touch with anyone leaving a VM. pt notes she does not use phone or computer for personal safety reasons and all such items have been through son (who only has broken phone at this time). pt will watch mail closely until phone situation can be worked out. Patient response teach back Questionnaires Thrive Questionnaire Date Thrive assessed: 02/24/25 I am a: Patient What is your living situation today?: I have a steady place to live Within the past 12 months, did the food you bought not last and you didn't have the money to get more?: Often true Within the past 12 months, did you worry whether your food would run out before you got money to buy more?: Often true Do you have trouble paying for medicines?: No Do you have trouble getting transportation to medical appointments?: Yes Do you have trouble paying your heating and electricity bill?: No Do you have trouble taking care of your child, family member or friend?: Yes Are you currently unemployed and looking for a job?: No Are you interested in more education?: No Please select the resources that you would like help with: Daily support THRIVE Score: 3 Coding Level of Care Code Est Pt Level 1 (12120) Assessment & Plan Assessment & Plan Orders: Referrals Behavioral Health Referral F22 - Delusional disorders, F32.A - Depression, unspecified, F43.12 - Post-traumatic stress disorder, chronic, F43.22 - Adjustment disorder with anxiety Nurse Navigator Referral Z78.9 - Other specified health status Psychiatry Outpatient Consultation Service F22 - Delusional disorders, F32.A - Depression, unspecified, F43.12 - Post-traumatic stress disorder, chronic, F43.22 - Adjustment disorder with anxiety Neurology Referral G47.00 - Insomnia, unspecified Psychiatry Referral F22 - Delusional disorders, F32.A - Depression, unspecified, F43.22 - Adjustment disorder with anxiety Medications: Refilled baclofen 10 mg PO TID 270 tabs 1RF gabapentin 600 mg PO BID 180 tabs 0RF diazepam 5 mg PO DAILY PRN 30 tabs 0RF anxiety
== END 2025-05-19 12:28 | disposition home or self-care (01) ==
LOC: HO.HMCFMS 11:02
PROVIDERS: PCP Student in an Organized Health Care Education/Training Program; Visit Provider Student in an Organized Health Care Education/Training Program
DX: F32.A Depression, unspecified (principal); F22 Delusional disorders; G47.00 Insomnia, unspecified; F41.9 Anxiety disorder, unspecified; F43.10 Post-traumatic stress disorder, unspecified; Z86.59 Personal history of other mental and behavioral disorders; G25.82 Stiff-man syndrome; L30.9 Dermatitis, unspecified

== ENCOUNTER → 2025-05-19 11:01 | Outpatient (BNVA) | payer MEDICARE, MEDICAID, SELFPAY | PROVIDERS: PCP Student in an Organized Health Care Education/Training Program; Visit Provider Student in an Organized Health Care Education/Training Program | DX: F32.A Depression, unspecified (principal); F22 Delusional disorders; G47.00 Insomnia, unspecified; F41.9 Anxiety disorder, unspecified; F43.10 Post-traumatic stress disorder, unspecified; Z86.59 Personal history of other mental and behavioral disorders; G25.82 Stiff-man syndrome; L30.9 Dermatitis, unspecified; Z79.899 Other long term (current) drug therapy | CPT/HCPCS: 99212 ==